=== PATIENT | female | born 1935 | race Caucasian/White ===

== ENCOUNTER → 2021-10-21 | Outpatient (CLI) | payer MEDICARE, SELFPAY ==
[2021-10-21 10:19] LABS: Absolute Lymphocyte Count 1.92 X10^3/uL (0.83-4.51); Absolute Neutrophil Count 7.5 X10^3/uL (2.0-7.7); Basophil# 0.05 X10^3/uL; Basophil% 0.5 % (0-1); Eosinophil# 0.06 X10^3/uL; Eosinophils% 0.6 % (0-5); Hematocrit 45.5 % (37-47); Hemoglobin 14.3 g/dL (12.0-15.0); Lymphocyte # 1.92 X10^3/ul (0.83-4.51); Lymphocyte % 18.2 % (19-41); Mean Corp Hgb Conc 31.4 g/dL (32-36); Mean Corpuscular Hgb 29.5 pg (27.0-32.0); Mean Platelet Vol. 10.4 fl (6.2-12.0); Monocyte# 0.98 X10^3/uL; Monocyte% 9.3 % (0-10); NRBC Flagged by Analyzer 0 % (0-5); Neutrophil % 71.1 % (47-70); Platelet Count 287 K/mm3 (150-450); RBC Distribution Width SD 48.2 fl (35.1-43.9); Red Blood Count 4.84 M/mm3 (4.2-5.4); White Blood Count 10.5 K/mm3 (4.4-11.0)
[2021-10-21 11:18] LABS: AST(SGOT) 20 U/L (15-37); Alanine Aminotransfer ALT/SGPT 28 U/L (13-56); Albumin, Serum 3.6 g/dL (3.2-5.0); Alkaline Phosphatase 138 U/L (45-117); Anion Gap 7 (5-15); BUN 10 mg/dL (7-18); BUN/Creat Ratio 10.8 RATIO (10-20); Calcium,Total 9.3 mg/dL (8.5-10.1); Chloride 103 mmol/L (98-107); Cholesterol 232 mg/dL (200); Creatinine, Serum 0.93 mg/dL (0.55-1.02); EST Glomerular Filtration Rate 61 mL/min (>60); Est Glom Filt Rate - Afr Amer 74 mL/min (>60); Globulin 3.6 g/dL (2.2-4.2); Glucose 97 mg/dL (74-106); High Density Lipoprotein 82 mg/dL; Potassium 4.6 mmol/L (3.5-5.1); Protein, Total 7.2 g/dL (6.4-8.2); Sodium Level 140 mmol/L (136-145); Triglycerides 134 mg/dL; Very Low Density Lipoprotein 27 mg/dL (5-40)
== END | disposition home or self-care (01) ==
PROVIDERS: PCP Family Medicine; Referring Provider Family Medicine; Visit Provider Family Medicine
DX: I12.9 Hypertensive chronic kidney disease with stage 1 through stage 4 chronic kidney disease, or unspecified chronic kidney disease (principal); I48.20 Chronic atrial fibrillation, unspecified; N18.30 Chronic kidney disease, stage 3 unspecified
CPT/HCPCS: 36415; 80053; 80061; 85025

== ENCOUNTER → 2022-03-08 | Outpatient (CLI) | payer MEDICARE, SELFPAY ==
[2022-03-08 17:36] LABS: Absolute Lymphocyte Count 1.73 X10^3/uL (0.83-4.51); Absolute Neutrophil Count 5.7 X10^3/uL (2.0-7.7); Basophil# 0.07 X10^3/uL; Basophil% 0.8 % (0-1); Eosinophil# 0.14 X10^3/uL; Eosinophils% 1.6 % (0-5); Hemoglobin 14.1 g/dL (12.0-15.0); Lymphocyte # 1.73 X10^3/ul (0.83-4.51); Mean Corpuscular Hgb 29.3 pg (27.0-32.0); Mean Corpuscular Volume 91.5 fL (81-99); Mean Platelet Vol. 10.4 fl (6.2-12.0); Monocyte# 1.03 X10^3/uL; Monocyte% 11.9 % (0-10); NRBC Flagged by Analyzer 0 % (0-5); Neutrophil # 5.68 X10^3/uL (2.7-7.7); Neutrophil % 65.5 % (47-70); Platelet Count 377 K/mm3 (150-450); RBC Distribution Width CV 14.3 % (11.6-14.6); RBC Distribution Width SD 48.3 fl (35.1-43.9); Red Blood Count 4.81 M/mm3 (4.2-5.4); White Blood Count 8.7 K/mm3 (4.4-11.0)
[2022-03-08 18:11] LABS: ALB/GLOB Ratio 0.7 RATIO (0.9-2.4); AST(SGOT) 22 U/L (15-37); Alanine Aminotransfer ALT/SGPT 29 U/L (13-56); Albumin, Serum 2.8 g/dL (3.2-5.0); Alkaline Phosphatase 171 U/L (45-117); Anion Gap 7 (5-15); BUN 15 mg/dL (7-18); BUN/Creat Ratio 13.5 RATIO (10-20); Calcium,Total 9.2 mg/dL (8.5-10.1); Chloride 101 mmol/L (98-107); Creatinine, Serum 1.11 mg/dL (0.55-1.02); EST Glomerular Filtration Rate 50 mL/min (>60); Est Glom Filt Rate - Afr Amer 60 mL/min (>60); Glucose 89 mg/dL (74-106); Potassium 4.8 mmol/L (3.5-5.1); Protein, Total 6.8 g/dL (6.4-8.2); Sodium Level 138 mmol/L (136-145)
== END | disposition home or self-care (01) ==
LOC: BFHLAB 15:03
PROVIDERS: PCP Family Medicine; Visit Provider Family Medicine
DX: N18.30 Chronic kidney disease, stage 3 unspecified (principal); I48.20 Chronic atrial fibrillation, unspecified
CPT/HCPCS: 36415; 80053; 85025

== ENCOUNTER → 2022-03-29 | Outpatient (CLI) | payer MEDICARE, MEDICAID, SELFPAY ==
--- NOTE | 2022-03-29 09:58 | ART_ITS ---
Reason For Study: Pain with walking L>R Procedure A bilateral lower extremity continuous wave Doppler with analog waveform analysis and ankle brachial indexes. Left Segmental Pressures Left brachial= 157mmHg. Left posterior tibial artery = 79mmHg. Left dorsalis pedis artery = 82mmHg. The left dorsalis pedis waveforms are monophasic. The left posterior tibial artery waveforms are monophasic. Right Segmental Pressures Right brachial= 147mmHg. Right dorsalis pedis artery = 88mmHg. The right dorsalis pedis waveforms are monophasic. The right posterior tibial artery waveforms are absent. Indices The right ankle brachial index by the dorsalis pedis is 0.56. The left ankle brachial index by the dorsalis pedis is 0.52. The left ankle brachial index by the posterior tibial artery is 0.50. VL/Ankle Brachial Index Interpretation Summary Right ANDREE 0.56, severe arterial insufficiency. Doppler/PVR waveforms of the rig ht ankle severely diminished Left ANDREE 0.52, severe arterial insufficiency. Doppler/PVR waveforms of the left ankle severely diminished. Ordering Physician: Deidre Borrero Referring Physician: Deidre Borrero Performed By: Carlotta Vigil, RDCS, RVT
== END | disposition home or self-care (01) ==
LOC: CVS 09:56
PROVIDERS: PCP Family Medicine; Referring Provider Family Medicine; Visit Provider Family Medicine
DX: I73.9 Peripheral vascular disease, unspecified (principal); F17.200 Nicotine dependence, unspecified, uncomplicated
CPT/HCPCS: 93922

== ENCOUNTER → 2022-05-03 | Outpatient (CLI) | payer MEDICARE, SELFPAY ==
[2022-05-03 11:19] LABS: Absolute Neutrophil Count 5.9 X10^3/uL (2.0-7.7); Basophil# 0.04 X10^3/uL; Basophil% 0.5 % (0-1); Eosinophil# 0.11 X10^3/uL; Eosinophils% 1.3 % (0-5); Hemoglobin 13.1 g/dL (12.0-15.0); Lymphocyte % 16.8 % (19-41); Mean Corp Hgb Conc 30.5 g/dL (32-36); Mean Corpuscular Hgb 28.6 pg (27.0-32.0); Mean Corpuscular Volume 93.9 fL (81-99); Mean Platelet Vol. 10.2 fl (6.2-12.0); Monocyte# 0.82 X10^3/uL; Monocyte% 9.8 % (0-10); NRBC Flagged by Analyzer 0 % (0-5); Neutrophil # 5.93 X10^3/uL (2.7-7.7); Neutrophil % 71.2 % (47-70); Platelet Count 464 K/mm3 (150-450); RBC Distribution Width CV 14.7 % (11.6-14.6); Red Blood Count 4.58 M/mm3 (4.2-5.4); White Blood Count 8.3 K/mm3 (4.4-11.0)
[2022-05-03 11:43] LABS: Anion Gap 7 (5-15); BUN 7 mg/dL (7-18); Calcium,Total 8.7 mg/dL (8.5-10.1); Chloride 104 mmol/L (98-107); EST Glomerular Filtration Rate 56 mL/min (>60); Est Glom Filt Rate - Afr Amer 68 mL/min (>60); Glucose 79 mg/dL (74-106); Potassium 3.9 mmol/L (3.5-5.1); Sodium Level 142 mmol/L (136-145)
== END | disposition home or self-care (01) ==
LOC: LAB 10:31
PROVIDERS: PCP Family Medicine; Visit Provider Physician Assistant
DX: N18.9 Chronic kidney disease, unspecified (principal); I73.9 Peripheral vascular disease, unspecified
CPT/HCPCS: 36415; 80048; 85025

== ENCOUNTER → 2022-05-16 | Outpatient (CLI) | payer MEDICARE, SELFPAY | END | disposition home or self-care (01) | LOC: CVS 09:55 | PROVIDERS: PCP Family Medicine; Visit Provider Physician Assistant | DX: Z00.00 Encounter for general adult medical examination without abnormal findings (principal) ==

== ENCOUNTER → 2022-05-16 | Outpatient (CLI) | payer MEDICARE, MEDICAID, SELFPAY ==
--- NOTE | 2022-05-16 09:57 | ECHOD_ITS ---
Left Ventricle Normal LV size. Left ventricular systolic function is normal. The estimated ejection fraction is 55 %. No regional wall motion abnormalities noted. Right Ventricle Normal RV size. Normal systolic function. Atria Normal left atrium. Normal right atrium. Mitral Valve Bileaflet diffuse mitral valve thickening. There is moderate mitral annular calcification. Mild focal mitral valve calcification. Mild-Moderate (1-2+) eccentric mitral valve insufficiency. Tricuspid Valve Moderate diffuse thickening of the tricuspid valve. Moderate (2+) tricuspid valve insufficiency. Pulmonary artery systolic pressure is 58 mmHg. Moderate pulmonary hypertension. Aortic Valve Trisinus/trileaflet aortic valve. Mild (1+) eccentric aortic valve insufficiency. Pulmonic Valve Normal pulmonic valve. Trivial pulmonic valve insufficiency. Great Vessels Normal aortic root. The pulmonary artery is normal size. Normal inferior vena cava. Pericardium/Pleural No pericardial effusion. MMode/2D Measurements & Calculations LVIDd: 4.1 cm IVSd: 0.89 cm Ao root diam: 3.1 cm LVIDs: 2.8 cm LVPWd: 0.76 cm RVDd: 3.7 cm FS: 31.5 % LAV(MOD-sp4): 48.6 ml LVAd ap4: 18.0 cm2 SV(MOD-sp4): 16.9 ml LVLd ap4: 5.5 cm EDV(MOD-sp4): 47.6 ml EDV(sp4-el): 49.7 ml LVAs ap4: 13.5 cm2 LVLs ap4: 4.8 cm ESV(MOD-sp4): 30.7 ml ESV(sp4-el): 32.0 ml EF(MOD-sp4): 35.6 % EF(sp4-el): 35.7 % SV(sp4-el): 17.8 ml LA dimension(2D): 3.4 cm LA A4 area: 16.4 cm2 RA A4 area: 16.4 cm2 Time Measurements MV dec time: 0.13 sec Doppler Measurements & Calculations MV E max vijay: 137.4 cm/sec Lat Peak E' Vijay: 10.2 cm/sec Med Peak E' Vijay: 6.6 cm/sec MV A max vijay: 98.1 cm/sec E/E' lat: 13.5 E/E' med: 20.9 MV E/A: 1.4 MV V2 max: 153.4 cm/sec Ao V2 max: 102.9 cm/sec MV max P.4 mmHg MV dec slope: 1088 cm/sec2 Ao max P.2 mmHg MV V2 mean: 86.0 cm/sec Ao V2 mean: 70.1 cm/sec MV mean P.7 mmHg Ao mean P.3 mmHg MV V2 VTI: 33.4 cm Ao V2 VTI: 22.1 cm AV (velocity ratio): 0.96 LV V1 max: 101.1 cm/sec TR max vijay: 365.1 cm/sec LV V1 max P.1 mmHg TR max P.3 mmHg LV V1 mean P.4 mmHg LV V1 mean: 72.6 cm/sec LV V1 VTI: 21.2 cm ECHO/Echo Complete Interpretation Summary Normal LV size. Left ventricular systolic function is normal. The estimated ejection fraction is 55 %. There is moderate mitral annular calcification. Mild-Moderate (1-2+) eccentric mitral valve insufficiency. Pulmonary artery systolic pressure is 58 mmHg. Moderate pulmonary hypertension. Ordering Physician: Leora Dominguez Performed By:
--- NOTE | 2022-05-16 09:57 | VDLE_ITS ---
Reason For Study: LEG PAIN AND SWELLING RIGHT LEFT CFV is compressible, spontaneous, phasic, CFV is compressible, spontaneous, phasic, competent and demonstrates normal competent, and demonstrates normal augmentation. augmentation. FV is compressible, spontaneous, phasic, FV is compressible, spontaneous, phasic, competent and demonstrates normal competent and demonstrates normal augmentation. augmentation. POP V is compressible, spontaneous, phasic, POP V is compressible, spontaneous, phasic, competent and demonstrates normal competent and demonstrates normal augmentation. augmentation. T/P Trunk is compressible. T/P Trunk is compressible. PTV is compressible. PTV is compressible. RT PerV is compressible. LT PerV is compressible. SFJ is competent and measures 0.35 x 0.34 SFJ is competent and measures 0.28 x 0.30 cm. cm. GSV proximal thigh measures 0.16 x 0.14 cm. GSV proximal thigh measures 0.19 x 0.26 cm. GSV at knee measures 0.11 x 0.12 cm. GSV at knee measures 0.14 x 0.20 cm. GSV is competent throughout. GSV is competent throughout. SSV proximal calf is competent and measures SSV proximal calf is competent and measures 0.10 x 0.11 cm. 0.14 x 0.13 cm. Significant atherosclerotic plaque noted in Procedure Lt Popliteal artery. Exam performed in department. The exam was diagnostic. VL/Venous Duplex US - Fran Extrem Interpretation Summary Deep veins of the bilateral lower extremities are patent and compressible segme ntally. There is no evidence of bilateral lower extremity deep vein thrombosis. The bilateral great saphenous veins appear patent and compressible segmentally. Negative for reflux bilateral Ordering Physician: Leora Dominguez Referring Physician: Ellen Borrero Performed By: Kash Romano, RVT
== END | disposition home or self-care (01) ==
LOC: CVS 09:49
PROVIDERS: PCP Family Medicine; Visit Provider Physician Assistant
DX: M79.606 Pain in leg, unspecified (principal); I48.20 Chronic atrial fibrillation, unspecified; M79.89 Other specified soft tissue disorders
CPT/HCPCS: 93306; 93970

== ENCOUNTER 2022-08-05 17:01 | Emergency (ER) | payer MEDICARE, MEDICAID, SELFPAY ==
[2022-08-05 17:04] VITALS: BP 165/88; PULSE 88; RESP 14; TEMP 36.3; O2SAT 95; BMI 16.9
--- NOTE | 2022-08-05 18:13 | EDS_ITS ---
HPI History of Present Illness Chief Complaint: Upper Extremity Injury Narrative Narrative: 86-year-old female here for left wrist pain after mechanical fall from standing. Does endorse head trauma. Denies loss of consciousness or vomiting. Patient denies taking blood thinning medication. [facility] Medical History Chronic a-fib Chronic renal disease HTN (hypertension) Tobacco dependence Home Medications ascorbic acid (vitamin C) 500 mg capsule 500 mg PO DAILY 04/19/22 [History Last Taken Unknown] aspirin 325 mg tablet 325 mg PO DAILY 04/19/22 [History Last Taken Unknown] atorvastatin 80 mg tablet 80 mg PO QHS #90 tabs 04/19/22 [Rx Last Taken Unknown] cholecalciferol (vitamin D3) 25 mcg (1,000 unit) capsule 25 mcg PO DAILY 04/19/22 [History Last Taken Unknown] echinacea 380 mg capsule 380 mg PO DAILY 04/19/22 [History Last Taken Unknown] furosemide 20 mg tablet (Lasix) 20 mg PO DAILY 04/19/22 [History Last Taken Unknown] lisinopril 5 mg tablet (Zestril) 5 mg PO DAILY 04/19/22 [History Last Taken Unknown] multivitamin 1 tab PO DAILY 04/19/22 [History Last Taken Unknown] verapamil 240 mg 24 hr capsule,extended release 240 mg PO DAILY 04/19/22 [History Last Taken Unknown] vitamin B complex (B Complex-Vitamin B12 tablet) 1 tab PO DAILY 04/19/22 [History Last Taken Unknown] Allergy/AdvReac Type Severity Reaction Status Date / Time diphenhydramine AdvReac Intermediate Other Verified 08/05/22 17:03 [From Bentimothyryl] Surgical History H/O: hysterectomy (~1972) History of cataract surgery (~1989) Social History Smoking Status: Light Smoker (<10/day) ROS ROS ED ROS Narrative Constitutional: Denies fever HEENT: Denies sore throat Neck: Denies neck pain Cardiovascular: Denies chest pain, syncope Respiratory: Denies shortness of breath GI: Denies nausea vomiting or abdominal pain : Denies changes in urinary habits Musculoskeletal: Endorses left wrist pain Neurologic: Denies numbness weakness or loss of sensation Skin denies rash EXAM Physical Exam Narrative Exam Narrative: Nursing triage notes reviewed, Vital signs reviewed Primary Survey Airway: Intact Breathing: Bilateral breath sounds Circulation: Palpable bilateral femorals, Palpable bilateral radial, Palpable bilateral DP and Palpable bilateral PT Disability / Spine precautions GCS Score: Eye Openin Verbal Response: 5 Motor Response: 6 Secondary Survey Constitutional: Please see MDM Head: Ecchymosis noted over left zygomatic arch, NO jaw malocclusion, No Cephalohematoma, and No Lacerations noted Eye: Pupils equal round and reactive to light, Extraocular muscles intact and No periorbital ecchymosis or stepoff, no evidence of entrapment ENT: Oropharynx clear, no lacerations, no hemotympanum, no raccoon eyes or finley sign Cervical spine / Neck: No cervical spine bony tenderness, crepitance, or stepoff deformity Trachea midline Lungs: Clear to auscultation, No asymmetric rise and No crepitus, no flail chest Cardiac: Regular rate and rhythm and No murmurs Abdomen: Soft, Nontender and No rebound Pelvis: Pelvis stable to compression : No evidence of genital injury Back: No midline bony tenderness to thoracic/lumbar/sacral spines Neuro: At baseline, intact strength and sensation in bilateral upper and lower extremities. 2+ patellar reflexes bilaterally. NIH was scale 0. Intact 5/5 strength with ok sign (median), intact finger abduction (ulnar) intact wrist extension (radial n). Intact sensation in the radial, ulnar, and median nerve distributions. Extremities: Obvious deformity to left wrist, Psych: Normal affect Nursing triage notes reviewed, Vital signs reviewed Const Vital Signs: 08/05/22 17:04 Temperature 97.3 F L Temperature Source Temporal Pulse Rate 88 Respiratory Rate 14 Blood Pressure 165/88 H Blood Pressure Mean 113 Pulse Ox 95 Oxygen Delivery Method Room Air [facility] [place], [place] Narrative Medical decision making narrative: Chief Complaint: Left wrist pain, head trauma External records reviewed: No recent adVanced imaging of the involved extremities I considered the following differential diagnosis: Intracranial abnormality, cervical spine abnormality, wrist fracture dislocation Patient CT scan read by myself showed right-sided subdural hematoma with no shift. Patient had a bed was greater than 30, blood pressure Below 140, she is given Keppra for seizure prophylaxis. Patient's NIH was 0 call the nearest trauma center for emergent transfer and neurosurgical evaluation. ICH score 1 (for age). Factors affecting care: History of atrial fibrillation, hypertension Social determinants of health: Elderly, poor literacy History obtained from others: The patient's family Shared decision making: I will have a discussion with the patient and or visitors regarding risk/benefits of further testing or admission. They will be made aware of of the risk/benefits inherent in this decision they will be given the opportunity to voice understanding. Consults: Trauma surgery Goals of care discussion: Patient is full code is okay with intubation and CPR. Lab Data Attestation: I reviewed the patient's lab results. Lab results narrative: CBC with leukocytosis, no anemia or thrombocytopenia noted PT/INR, PTT without evidence of coagulopathy BMP without significant electrolyte abnormalities, mild renal insufficiency, Radiography Chest X-Ray - ED: Read by ED Physician EKG Initial EKG: Attestation: I personally reviewed and interpreted this EKG as follows: Comments: EKG with atrial fibrillation, left axis deviation, prolonged QT, lateral T wave inversions, prior for comparison Procedures Upper Extremity Splints Upper Extremity Splint: Orthoglass Splint Fabrication: Fabricated Location: Left Critical Care Time Critical Care Time: Yes Critical care time (excluding procedures): 30-74 minutes Discharge Plan Triage Chief Complaint: Upper Extremity Injury Other Complaint: Head Injury ED Provider: Kevin Bernal Dx/Rx/DC Orders Prescriptions: No Action furosemide [Lasix] 20 mg tablet 20 mg PO DAILY aspirin 325 mg tablet 325 mg PO DAILY lisinopril [Zestril] 5 mg tablet 5 mg PO DAILY verapamil 240 mg capsule,ext rel. pellets 24 hr 240 mg PO DAILY vitamin B complex [B Complex-Vitamin B12] Tablet 1 tab PO DAILY echinacea 380 mg capsule 380 mg PO DAILY Rx Instructions: administer with meals cholecalciferol (vitamin D3) 25 mcg (1,000 unit) capsule 25 mcg PO DAILY multivitamin Tablet 1 tab PO DAILY ascorbic acid (vitamin C) 500 mg capsule 500 mg PO DAILY atorvastatin 80 mg tablet 80 mg PO QHS Qty: 90 3RF Primary Care Provider: Deidre Borrero Referrals: Deidre Borrero MD [Primary Care Provider] -
--- NOTE | 2022-08-05 18:33 | RAD_ITS ---
INDICATION: wrist pain after fall EXAMINATION/TECHNIQUE: X-RAY - LEFT XR Wrist Min 3 Views 3 VIEWS COMPARISON: None FINDINGS: SOFT TISSUES: Circumferential swelling. No radiopaque foreign body. BONES/JOINTS: Demineralized. Distal radial metaphysis fracture with mild ulnar impaction. Distal ulnar metaphysis fracture with impaction and dorsal angulation. Distal radioulnar joint, radiocarpal articulations, and carpal arcs appear normal. RAD/Wrist min 3 Views IMPRESSION: Distal radius and ulna fractures. Electronically Signed: Andrew Maynard MD at 19:22 EDT ,
--- NOTE | 2022-08-05 18:33 | CT_ITS ---
INDICATION: neck pain EXAMINATION: CT CERVICAL SPINE - CT Spine Cervical W/O Contrast Injection TECHNIQUE: Helically acquired images were obtained of the cervical spine. 2D reformatted images were reviewed. A radiation dose optimization technique was used for this scan. IV Contrast dosage and agent: None. RADIATION DOSAGE (If Supplied By Facility): CTDIvol = ( 11.79 ) mGy, DLP = ( 211.15 ) mGycm COMPARISON: None FINDINGS: VERTEBRAE: No fracture or traumatic subluxation. No discrete lytic or blastic abnormality. Normal alignment. Normal craniocervical junction and cervicothoracic junction. DISCS and SPINAL CANAL: Mild degenerative change. No critical stenosis. NECK SOFT TISSUES: No prevertebral soft tissue swelling. There is no cervical adenopathy. LUNG APICES: Large right pleural effusion. CT/Spine Cervical without Contras IMPRESSION: No evidence of acute cervical spinal fracture or spondylolisthesis. Electronically Signed: Andrew Maynard MD at 19:17 EDT ,
--- NOTE | 2022-08-05 18:33 | CT_ITS ---
INDICATION: Fall, head trauma EXAMINATION: CT BRAIN - CT Head or Brain W/O Contrast Injection TECHNIQUE: Multiple axial images were obtained of the head without intravenous contrast. A radiation dose optimization technique was used for this scan. IV Contrast dosage and agent: None. RADIATION DOSAGE (If Supplied By Facility): CTDIvol = ( 44.99 ) mGy, DLP = ( 745.49 ) mGycm COMPARISON: None FINDINGS: BRAIN PARENCHYMA: Diffuse right cerebral convexity subdural hematoma measures up to at least 7 mm in caliber (series 2, image 21). Subarachnoid components are noted in the high right parietal convexity (image 33), and lateral right frontal convexity (image 27, coronal image 29). Punctate left frontal convexity subdural hematoma. No evidence of acute infarct. No intracranial mass or mass effect. There is preservation of the auguste/white matter interface. Posterior fossa structures are unremarkable. CSF SPACES: Appropriate for age. No hydrocephalus. Basal cisterns are patent. CALVARIUM, SKULL BASE, PARANASAL SINUSES AND MASTOID AIR CELLS: Clear. No discrete lytic or blastic abnormalities. Left cheek soft tissue swelling. ORBITS: Bilateral ocular lens replacements. ASPECTS Score for Acute Strokes: 10 CT/Brain/Head without Contrast IMPRESSION: Right cerebral convexity subdural hematoma. No midline shift. Right and left cerebral convexity focal areas of subarachnoid hemorrhage. Electronically Signed: Andrew Maynard MD at 19:13 EDT ,
--- NOTE | 2022-08-05 18:58 | RAD_ITS ---
INDICATION: CP after fall EXAMINATION/TECHNIQUE: X-RAY - XR Chest 2 Views COMPARISON: Concurrent cervical spine CT FINDINGS: LINES/DEVICES: None. LUNGS: Moderate right and small left pleural effusions. No focal consolidation. MEDIASTINUM AND CARDIOVASCULAR STRUCTURES: Cardiac silhouette not enlarged. Central airways and mediastinal contour are unremarkable. RAD/Chest PA and Lateral IMPRESSION: Right greater than left pleural effusions. Electronically Signed: Andrew Maynard MD at 19:20 EDT ,
--- NOTE | 2022-08-05 19:14 | EKG12_ITS ---
Test Reason : FALL Blood Pressure : / mmHG Vent. Rate : 098 BPM Atrial Rate : 000 BPM P-R Int : 000 ms QRS Dur : 108 ms QT Int : 378 ms P-R-T Axes : 000 -27 129 degrees QTc Int : 482 ms Atrial fibrillation with premature ventricular or aberrantly conducted complexes Left ventricular hypertrophy with repolarization abnormality ( Bal product , Romhilt-Pena ) Cannot rule out Septal infarct , age undetermined Inferior infarct , age undetermined Abnormal ECG Confirmed by CARLY HAQUE ([id number]), fan mail editor MARY FERNÁNDEZ ([id number]) on 08/09/2022 7:54:42 AM Referred By: Confirmed By:CARLY HAQUE
[2022-08-05 19:16] VITALS: BP 163/73
[2022-08-05 19:32] VITALS: BP 152/67; PULSE 97; RESP 20; O2SAT 93
[2022-08-05] MEDS: Labetalol (Prefilled) 20 MG/4 ML IV (19:35)
[2022-08-05 19:37] LABS: Absolute Lymphocyte Count 1.37 X10^3/uL (0.83-4.51); Absolute Neutrophil Count 10.1 X10^3/uL (2.0-7.7); Basophil# 0.03 X10^3/uL; Basophil% 0.2 % (0-1); Eosinophil# 0.05 X10^3/uL; Eosinophils% 0.4 % (0-5); Hematocrit 40.8 % (37-47); Hemoglobin 12.9 g/dL (12.0-15.0); Lymphocyte # 1.37 X10^3/ul (0.83-4.51); Lymphocyte % 10.6 % (19-41); Mean Corp Hgb Conc 31.6 g/dL (32-36); Mean Corpuscular Hgb 29.3 pg (27.0-32.0); Mean Corpuscular Volume 92.7 fL (81-99); Mean Platelet Vol. 10.3 fl (6.2-12.0); Monocyte% 10.8 % (0-10); NRBC Flagged by Analyzer 0 % (0-5); Neutrophil # 10.05 X10^3/uL (2.7-7.7); Neutrophil % 77.7 % (47-70); Platelet Count 302 K/mm3 (150-450); RBC Distribution Width CV 14.6 % (11.6-14.6); RBC Distribution Width SD 49.4 fl (35.1-43.9); White Blood Count 12.9 K/mm3 (4.4-11.0)
[2022-08-05] MEDS: levETIRAcetam IV 1,000 MG/100 ML BAG 400 MG IV (19:51)
[2022-08-05 20:00] LABS: Anion Gap 5 (5-15); BUN 10 mg/dL (7-18); BUN/Creat Ratio 8.1 RATIO (10-20); Calcium,Total 8.9 mg/dL (8.5-10.1); Chloride 104 mmol/L (98-107); Creatinine, Serum 1.24 mg/dL (0.55-1.02); EST Glomerular Filtration Rate 44 mL/min (>60); Est Glom Filt Rate - Afr Amer 53 mL/min (>60); Estimated Creatinine Clearance 20.19 ml/min; Glucose 93 mg/dL (74-106); Potassium 3.8 mmol/L (3.5-5.1); Sodium Level 138 mmol/L (136-145)
[2022-08-05 20:15] LABS: Partial Thromboplast Time 26.9 Seconds (24.1-36.2); Prothrombin Time (Protime)PT. 13.2 SECONDS (11.7-14.9)
[2022-08-05 20:24] VITALS: BP 106/73; PULSE 80; RESP 18; O2SAT 98
[2022-08-05 21:11] VITALS: BP 106/73; PULSE 76; RESP 20; TEMP 37.1; O2SAT 95
--- NOTE | 2022-08-05 21:15 | ED.RN ---
ATTEMPTED TO CALL REPORT AND NURSEKISHAN, NOT AVAILABLE.
--- NOTE | 2022-08-05 21:31 | ED.RN ---
KISHAN FROM [facility] CALLED AND THIS NURSE GAVE REPORT.
== END 2022-08-05 21:15 | disposition short-term general hospital (02) ==
PROVIDERS: Emergency Provider Emergency Medicine; PCP Family Medicine; Visit Provider Emergency Medicine
DX: S06.5X0A Traumatic subdural hemorrhage without loss of consciousness, initial encounter (principal); I48.20 Chronic atrial fibrillation, unspecified; W18.30XA Fall on same level, unspecified, initial encounter; I12.9 Hypertensive chronic kidney disease with stage 1 through stage 4 chronic kidney disease, or unspecified chronic kidney disease; N18.9 Chronic kidney disease, unspecified; F17.200 Nicotine dependence, unspecified, uncomplicated; Z55.0 Illiteracy and low-level literacy; Z79.82 Long term (current) use of aspirin; Z79.899 Other long term (current) drug therapy
CPT/HCPCS: 70450; 71046; 72125; 73110; 80048; 85025; 85610; 85730; 93005; 96365; 96375; 99285; J7050; A4216

== ENCOUNTER 2022-08-11 19:02 | Inpatient (IN) | payer MEDICARE, SELFPAY ==
[2022-08-11 19:07] VITALS: BP 146/70; PULSE 130; RESP 16; TEMP 36.7; O2SAT 95; BMI 16.9
[2022-08-11 22:00] VITALS: BP 132/80; PULSE 93; PULSE 98; RESP 17; TEMP 36.6; O2SAT 97
[2022-08-11] MEDS: Menthol/Lanolin/Calamine/Znox 113 GM Tube 1 APPLIC TOPICAL (22:05)
[2022-08-11] MEDS: Heparin Injection (Vial) 5,000 UNIT/ML VIAL 5000 UNIT SC (22:06)
[2022-08-11] MEDS: Atorvastatin Calcium 80 MG Tablet PO (22:09)
[2022-08-11 22:10] VITALS: PULSE 90
[2022-08-11] MEDS: Metoprolol Tartrate 25 MG Tablet PO (22:10)
[2022-08-11] MEDS: Acetaminophen 500 MG Tablet PO (22:11)
--- NOTE | 2022-08-11 23:42 | NURSING ---
Patient pleasant, alert and oriented with some forgetfullness and needs cues and reminders. Son and niece aware of team and rehab routine. Patient verified she wants to be a DNRCCA. Patient and this nurse reviewed her medications.
[2022-08-12 05:25] LABS: Absolute Lymphocyte Count 1.17 X10^3/uL (0.83-4.51); Absolute Neutrophil Count 6.6 X10^3/uL (2.0-7.7); Basophil# 0.03 X10^3/uL; Basophil% 0.3 % (0-1); Eosinophil# 0.12 X10^3/uL; Eosinophils% 1.3 % (0-5); Hematocrit 34.8 % (37-47); Hemoglobin 11.4 g/dL (12.0-15.0); Lymphocyte # 1.17 X10^3/ul (0.83-4.51); Mean Corp Hgb Conc 32.8 g/dL (32-36); Mean Corpuscular Hgb 29.8 pg (27.0-32.0); Mean Corpuscular Volume 90.9 fL (81-99); Mean Platelet Vol. 9.9 fl (6.2-12.0); Monocyte# 1.05 X10^3/uL; Monocyte% 11.7 % (0-10); NRBC Flagged by Analyzer 0 % (0-5); Neutrophil # 6.61 X10^3/uL (2.7-7.7); Neutrophil % 73.5 % (47-70); Platelet Count 332 K/mm3 (150-450); RBC Distribution Width CV 14.4 % (11.6-14.6); Red Blood Count 3.83 M/mm3 (4.2-5.4)
[2022-08-12 05:36] VITALS: BP 130/62; PULSE 80
[2022-08-12] MEDS: Metoprolol Tartrate 25 MG Tablet PO ×2 (05:36→13:51)
[2022-08-12] MEDS: Menthol/Lanolin/Calamine/Znox 113 GM Tube 1 APPLIC TOPICAL ×2 (05:37→22:06)
[2022-08-12] MEDS: Acetaminophen 500 MG Tablet PO ×3 (05:37→21:59)
[2022-08-12 05:42] LABS: BNP,B-Type NATRIURETIC PEPTIDE 514.2 pg/mL (0-100)
[2022-08-12 05:55] LABS: BUN 20 mg/dL (7-18); Creatinine, Serum 0.87 mg/dL (0.55-1.02); Glucose 75 mg/dL (74-106)
[2022-08-12 05:56] LABS: ALB/GLOB Ratio 0.7 RATIO (0.9-2.4); AST(SGOT) 27 U/L (15-37); Alanine Aminotransfer ALT/SGPT 25 U/L (13-56); Alkaline Phosphatase 122 U/L (45-117); Anion Gap 2 (5-15); Calcium,Total 8.7 mg/dL (8.5-10.1); Chloride 104 mmol/L (98-107); EST Glomerular Filtration Rate 66 mL/min (>60); Est Glom Filt Rate - Afr Amer 79 mL/min (>60); Estimated Creatinine Clearance 28.87 ml/min; Phosphorus 3.7 mg/dL (2.5-4.9); Potassium 4.2 mmol/L (3.5-5.1); Sodium Level 135 mmol/L (136-145); Thyroid Stim Hormone (TSH) 1.19 uIU/mL (0.358-3.74)
[2022-08-12 06:00] VITALS: BMI 17.0
[2022-08-12 06:20] VITALS: O2SAT 96
[2022-08-12 07:19] VITALS: BP 130/62; PULSE 85; RESP 16; TEMP 37.2; O2SAT 99
[2022-08-12] MEDS: Heparin Injection (Vial) 5,000 UNIT/ML VIAL 5000 UNIT SC ×2 (07:41→22:01)
[2022-08-12] MEDS: Ascorbic Acid 500 MG Tablet PO (07:41)
[2022-08-12] MEDS: Cholecalciferol (VIT D3) 25 MCG TABLET (1,000 UNITS) PO (07:42)
[2022-08-12] MEDS: Lisinopril 5 MG Tablet PO (07:42)
--- NOTE | 2022-08-12 09:00 | EKGRS_ITS ---
Test Reason : AM EKG Blood Pressure : / mmHG Vent. Rate : 083 BPM Atrial Rate : 326 BPM P-R Int : 000 ms QRS Dur : 110 ms QT Int : 408 ms P-R-T Axes : 000 -42 120 degrees QTc Int : 479 ms Atrial flutter with variable A-V block Left axis deviation Inferior infarct (cited on or before 05-AUG-2022) Anteroseptal infarct (cited on or before 05-AUG-2022) Abnormal ECG Confirmed by MARCUS VICTORIA, LIDIA ([id number]), art editor MARY FERNÁNDEZ ([id number]) on 08/16/2022 10:26:04 AM Referred By: AALIYAH Confirmed By:LIDIA VELAZQUEZ MD
[2022-08-12 10:00] VITALS: PULSE 93
--- NOTE | 2022-08-12 11:38 | EX.PCM.HP.RE ---
[facility] - General General Date of Admission: 08/11/22 Date of Service: 08/12/22 Chief Complaint: debility due to intracerebral hemorrhage related to a mechanical fall. HPI Narrative BEN SALAMANCA, is a 86 YO F with a PMH of atrial fibrillation, chronic kidney disease, hypertension, peripheral vascular disease and tobacco dependence who presented to the ED at [facility] on 08/05/2022 after a mechanical fall (she tripped over her carpet) at home resulting in left wrist pain. She admitted to hitting her head but denied loss of consciousness and also denied nausea/vomiting. She was taking aspirin 325 mg daily but was on no anticoagulation. Plain x-rays of the left wrist show distal radius and ulna fractures. Chest x-ray showed bilateral pleural effusions, right greater than left. A noncontrast CT brain showed a right subdural hematoma with no midline shift and right and left focal areas of subarachnoid hemorrhage. CT of the cervical spine showed no acute fractures or spondylolisthesis. A splint was applied to the left forearm and she was given Keppra for seizure prophylaxis. She was transferred to the trauma center at [facility]. CT chest at [facility] showed a large right and moderate left pleural effusion and the heart was moderately enlarged. There was mild to moderate coronary artery calcification. No surgical intervention was needed other than a R chest tube to drain the pleural fluid which was serous and had no malignant cells per a PN from [facility]. The chemistries on the pleural fluid were not sent with the patient. While at [facility] she was seen by PT/OT and acute rehab was recommended at [facility]. Ben was transferred to [facility] acute rehab on 08/11/22 for 3 hours of therapy daily to restore function/independence at or as near as possible to her level of function prior to the fall. BNP at [facility] was approximately 3800? with a normal EF? The EMR from [facility] was reviewed. The patient had a echocardiogram in April 2022 which showed a ejection fraction of 55% with no regional wall motion abnormalities. The atria were of normal size. There was bileaflet diffuse mitral valve thickening with moderate mitral annular calcification and mild to moderate eccentric mitral valve insufficiency. There was also moderate diffuse thickening of the tricuspid valve with 2+ tricuspid valve insufficiency. The pulmonary artery systolic pressure was estimated at 58 which is considered moderate pulmonary hypertension. There was +1 AI and trivial pulmonic valve insufficiency. Echocardiogram at [facility] on 08/05/2022 showed a 55% ejection fraction with mildly dilated right atrium and a moderately dilated left atrium. The IVC diameter was dilated and decreased less than 50% during inspiration which is indicative of elevated right atrial pressure estimated at 15. She was seen by Dr. Enrike Hill from vascular surgery in April and was found to have diminished blood flow in her legs bilaterally with claudication at a distance of about 350 feet. ANDREE on the right was 0.56 and on the left was 0.52. She had no wounds. He prescribed atorvastatin 80 mg daily and recommended aspirin daily. She was provided with instructions regarding exercise 5 times a week. She was reevaluated in 6 weeks and she found that she was able to walk further. She was wearing the compression stockings (20 to 30 mmHg) prescribed by her PCP. Note changes were made to her current drug regimen however vascular recommended decreasing compression to 16 to 20 mg given her severe peripheral vascular disease. All lab from this morning was personally reviewed. White blood cell count is normal at 9.0. Hemoglobin is 11.4, down from 12.9 on 08/05/2022. She is normochromic normocytic with an elevated RDW standard deviation at 48. Platelets are normal. Sodium is low at 135 and potassium is 4.2. The BUN is 20 with a creatinine of 0.87 which is down from 1.24 at presentation to the emergency room on 08/05/2022. Phosphorus and magnesium are within normal limits. LFTs are unremarkable. Total protein is low at 5.0 and the albumin is 2.0. BNP is 514 (it was over 3800 at [facility]). TSH is normal at 1.19. EKG done today shows a QS wave in the anterior and septal leads and also in the inferior leads.....she has no hx od MT and has no wall motion abnormalities on the ECHO so I suspect she has LVH. She has LAD and NS ST and T wave changes. No ST elevation. QT is 408. [facility], [facility] Medical History (Updated 08/18/22 @ 16:[address] Cassandra Gerardo DO) Chronic a-fib Chronic renal disease History of ectopic HTN (hypertension) Pulmonary hypertension Tobacco dependence Home Medications ascorbic acid (vitamin C) 500 mg capsule 500 mg PO DAILY supp 12/27/22 [History Last Taken Unknown] cholecalciferol (vitamin D3) 25 mcg (1,000 unit) capsule 25 mcg PO DAILY supp 04/19/22 [History Last Taken Unknown] lisinopril 5 mg tablet (Zestril) 5 mg PO DAILY bp 04/19/22 [History Last Taken Unknown] verapamil 240 mg 24 hr capsule,extended release 240 mg PO DAILY bp 04/19/22 [History Last Taken Unknown] acetaminophen 500 mg tablet 500 mg PO 0600,1200,2200 pain 08/11/22 [History Last Taken Unknown] atorvastatin 80 mg tablet 80 mg PO QHS cholesterol 08/11/22 [History Last Taken Unknown] oxycodone 5 mg tablet 2.5 mg PO Q4H PRN Pain 08/11/22 [History Last Taken Unknown] polyethylene glycol 3350 17 gram oral powder packet (Miralax) 17 g PO DAILY constipation 08/11/22 [History Last Taken Unknown] Allergy/AdvReac Type Severity Reaction Status Date / Time diphenhydramine AdvReac Intermediate Other Verified 08/05/22 17:03 [From Keith] Family History no significant family his no significant family history (Ben tells me that most of her family of old age and she denies any FH of CA, CAD, Strokes) Surgical History (Updated 08/12/22 @ 14:[address] Cassandra Gerardo DO) H/O: hysterectomy (~1972) History of cataract surgery (~1989) Social History (Updated 08/12/22 @ 14:[address] Cassandra Gerardo DO) household members: none and other details: she has been for 20 years. housing: other details: She lives in a trailer number of children: 1 current occupational status: retired pets and animals: Yes (2 cats) pets and animals: cat(s) Smoking Status: Light Smoker (<10/day) Tobacco: How many years used: 72 counseling given: provider counseling alcohol intake: current alcohol intake frequency: 0-2 drinks per day details: She drinks a small juice glass of wine, when she has it, 4-5 days per week. substance use type: does not use what type of physical activity do you participate in: walking ROS Review of Systems ROS Unobtainable: Denies due to encephalopathy, due to endotracheal tube, due to mental condition or due to mental status Constitutional Constitutional: Reports fatigue; Denies anorexia, change in weight, chills, fever(s), night sweats or weakness Eyes Eyes: Denies blurry vision, change in vision, eye pain or loss of vision ENT HEENT: Reports abnormal hearing; Denies dysphagia, headache(s), hearing loss, nasal congestion or sore throat Cardiovascular Cardiovascular: Reports dyspnea on exertion and edema; Denies chest pain, lightheadedness, orthopnea, palpitations, paroxysmal nocturnal dyspnea or syncope Respiratory/Chest Respiratory/Chest: Reports shortness of breath with exertion and other Details: Has used an inhaler in the past but, she tells me that it really did not improve her breathing. ; Denies cough, dyspnea, shortness of breath at rest or wheezing Gastrointestinal Gastrointestinal: Denies abdominal pain, constipation, diarrhea, dyspepsia, hematemesis, hematochezia, nausea or vomiting Genitourinary Genitourinary: Denies dysuria, hematuria, nocturia, urinary frequency, urinary hesitancy, urinary incontinence or urinary urgency Musculoskeletal Musculoskeletal: Denies back pain, joint pain, joint swelling or neck pain Integumentary Integumentary: Reports other Details: Black eye on the R. ; Denies jaundice, pruritus, rash or wounds Neurologic Neurologic: Denies confusion, disequilibrium, dizziness, focal weakness, headache(s), paresthesias, seizures or tremor(s) Psychiatric Psychiatric: Denies anxiety, depression, homicidal ideation or suicidal ideation Endocrine Endocrinology: Denies change in body appearance, polydipsia or polyuria Hematologic/Lymphatic Hematologic/Lymphatic: Denies easy bleeding, easy bruising or lymphadenopathy Allergic/Immunologic Allergic/Immunologic: Denies rhinitis, eczemia or asthma Vital Signs Vital Signs Vital Signs: 08/11/22 19:07 08/11/22 22:10 08/11/22 22:00 Temperature 98.1 F 97.8 F Temperature Source Temporal Oral Pulse Rate 130 H 90 93 Pulse Strength Respiratory Rate 16 17 Blood Pressure 146/70 H 132/80 H Blood Pressure Mean 95 97 Blood Pressure Source Monitor Monitor Blood Pressure Position Semi-Fowlers Semi-Fowlers Blood Pressure Location Right Arm Right Arm Pulse Ox 95 97 Oxygen Delivery Method Room Air Room Air 08/11/22 22:00 08/12/22 05:36 08/12/22 06:20 Temperature Temperature Source Pulse Rate 98 80 Pulse Strength Respiratory Rate Blood Pressure 130/62 H Blood Pressure Mean Blood Pressure Source Blood Pressure Position Blood Pressure Location Pulse Ox 96 Oxygen Delivery Method Room Air 08/12/22 07:19 08/12/22 10:00 Temperature 99.0 F Temperature Source Temporal Pulse Rate 85 Pulse Strength Normal (2+) Respiratory Rate 16 Blood Pressure 130/62 H Blood Pressure Mean 84 Blood Pressure Source Monitor Blood Pressure Position Semi-Fowlers Blood Pressure Location Right Arm Pulse Ox 99 Oxygen Delivery Method Room Air Weight Weight: 86 lb 13.794 oz Body Mass Index (BMI) 17.0 Indicators for Scoring Admitted with or Primary Diagnosis of CVA/Stroke: Yes Hx of CVA/Stroke: No (subdural hematoma and SAH) Modified Mora Score MRS Score at time of Evaluation: 3-Moderate disability NIHSS NIHSS 1a. Level of Consciousness: Alert; keenly responsive 1b. LOC Questions: Answers BOTH questions correctly. 1c. LOC Commands: Performs both tasks correctly. 2. Best Gaze: Normal 3. Visual: No visual loss 4. Facial Palsy: Normal symmetrical movements 5a. Left Arm: No drift; arm holds 90 (or 45) degrees for full 10 seconds 5b. Right Arm: No drift; arm holds 90 (or 45) degrees for full 10 seconds 6a. Left Leg: No drift; leg holds 30-degree position for full 5 seconds 6b. Right Leg: No drift; leg holds 30-degree position for full 5 seconds 7. Limb Ataxia: Absent 8. Sensory: Normal; no sensory loss 9. Best Language: No aphasia; normal 10. Dysarthria: Normal 11. Extinction and Inattention: No abnormality Total: 0 Stroke Questions Stroke Team Activated: No Physical Exam Const alert, oriented x3 and no apparent distress Constitutional Narrative: She is cachetic in appearance but, she tells me that her weight has been stable for the past 5 years. She weighs 86.9 pounds today which is stable from her weight on 08/05/2022. General Appearance: cooperative HEENT normocephalic and moist oral mucous membranes HEENT Narrative: She has some ecchymosis around her left eye/cheek. Eyes PERRL and EOMs intact bilaterally Eyes Narrative: Has had bilateral cataract extraction. Neck No nuchal rigidity, No no lymphadenopathy, supple, No nodes and No no carotid bruits Neck Narrative: Positive JVD. General: trachea midline Resp clear to auscultation bilaterally Resp Narrative: Marked decrease in air exchange, especially in the bases posteriorly. Breath sounds are better anteriorly. There are no crackles, wheezes or rhonchi. She is not tachypneic and breathing is not labored at rest. Cardio S1 normal heart sound, S2 normal heart sound, no murmurs, no rub and no gallops Cardio Narrative: Irregular irregular rhythm. GI normal to inspection, nondistended, normoactive bowel sounds, soft to palpation and non-tender GI Narrative: She has a soft abdominal bruit. No guarding with palpation. Extremity no calf tenderness Extremity Narrative: The toes are little cool to touch compared to the rest of her leg. She has intact sensation to both feet and both hands. General Extremity: Negative for cyanosis or edema Skin no wounds and no jaundice General Skin Exam: no breakdown Rashes: no rashes Neuro CN's II-XII intact bilaterally, no focal motor deficits and no sensory deficits noted Psych thought process normal, cooperative, affect normal, denies homicidal ideation and denies suicidal ideation Appearance: appropriate Results Lab / Micro Data Result Diagrams: 08/12/22 05:18 08/12/22 05:18 Labs: Laboratory Results - last 24 hr 08/12/22 05:18: WBC 9.0, RBC 3.83 L, Hgb 11.4 L, Hct 34.8 L, MCV 90.9, MCH 29.8, MCHC 32.8, RDW Std Deviation 48.0 H, RDW Coeff of Jenny 14.4, Plt Count 332, MPV 9.9, Immature Gran % (Auto) 0.200, Neut % (Auto) 73.5 H, Lymph % (Auto) 13.0 L, Galax % (Auto) 11.7 H, Eos % (Auto) 1.3, Baso % (Auto) 0.3, Absolute Neuts (auto) 6.6, Absolute Lymphs (auto) 1.17, Nucleated RBC % 0 08/12/22 05:18: Sodium 135 L, Potassium 4.2, Chloride 104, Carbon Dioxide 29.0, Anion Gap 2 L, BUN 20 H, Creatinine 0.87, Estim Creat Clear Calc 28.87, Est GFR (MDRD) Af Amer 79, Est GFR (MDRD) Non-Af 66, BUN/Creatinine Ratio 23.0 H, Glucose 75, Calcium 8.7, Phosphorus 3.7, Magnesium 2.0, Total Bilirubin 0.60, AST 27, ALT 25, Alkaline Phosphatase 122 H, Total Protein 5.0 L, Albumin 2.0 L, Globulin 3.0, Albumin/Globulin Ratio 0.7 L, TSH 1.19 08/12/22 05:18: B-Natriuretic Peptide 514.2 H Assessment & Plan Assessment/Plan (1) Debility: (2) Fall: PLAN: Mechanical, tripped over a throw rug. (3) Fracture of left radius and ulna: PLAN: No surgery......casted (4) Subarachnoid hemorrhage: (5) Subdural hematoma: (6) History of CHF (congestive heart failure): PLAN: BL pleural effusions at previous hospital and had a chest tube to drain, path with no malignant cells. (7) Insomnia: (8) Pulmonary hypertension: PLAN: Moderate (9) Peripheral vascular disease: PLAN: Follows with Dr. Hill. (10) Left ventricular hypertrophy: (11) Tobacco dependence: (12) Chronic renal disease: (13) Chronic a-fib: PLAN: Was not on anticoagulation as OP. (14) HTN (hypertension): PLAN: Controlled (15) Dehydration, moderate: PLAN: PLAN: Plan PLAN PT for gait stability OT for ADL's ST for evaluation Analgesics as needed Bowel protocol Fall precautions Assess for Anxiety/Depression GI prophylaxis - not needed at this time No hx of PUD and no DVT prophylaxis with MIGDALIA hose and heparin 5000 units subcu every 12 hours. Follow up with Dr. Forde, cardiology and orthopedics following DC from rehab AM lab including CMP, CBC, Mag and Phos - personally reviewed. Increase the Verapamil if the HR stays up after she gets settled. PRN Metoprolol for HR > 120 Avoid beta blockers going forward because of the PVD Hydrate and recheck BMP Charges/Coding Visit Charges Inpatient E&M: 52682 Init Hosp L3
[2022-08-12 13:51] VITALS: PULSE 110
[2022-08-12 20:00] VITALS: BP 131/63; PULSE 96; RESP 16; TEMP 36.3; O2SAT 95
[2022-08-12] MEDS: Verapamil SR 240 MG Tablet PO (21:59)
[2022-08-12] MEDS: Atorvastatin Calcium 80 MG Tablet PO (21:59)
[2022-08-13] MEDS: Menthol/Lanolin/Calamine/Znox 113 GM Tube 1 APPLIC TOPICAL ×2 (05:04→21:00)
[2022-08-13] MEDS: Acetaminophen 500 MG Tablet PO ×3 (05:05→20:59)
[2022-08-13 07:52] VITALS: BP 119/56; PULSE 83; RESP 16; TEMP 36.4; O2SAT 94
[2022-08-13] MEDS: Heparin Injection (Vial) 5,000 UNIT/ML VIAL 5000 UNIT SC ×2 (08:59→21:00)
[2022-08-13] MEDS: Lisinopril 5 MG Tablet PO (09:01)
[2022-08-13] MEDS: Ascorbic Acid 500 MG Tablet PO (09:02)
[2022-08-13] MEDS: Cholecalciferol (VIT D3) 25 MCG TABLET (1,000 UNITS) PO (09:02)
[2022-08-13] MEDS: Verapamil SR 240 MG Tablet 120 MG PO (09:03)
[2022-08-13 15:19] VITALS: O2SAT 94
[2022-08-13 19:45] VITALS: BP 111/40; PULSE 95; RESP 18; TEMP 36.2; O2SAT 94
[2022-08-13] MEDS: Atorvastatin Calcium 80 MG Tablet PO (20:59)
[2022-08-13] MEDS: Verapamil SR 240 MG Tablet PO (20:59)
[2022-08-14 06:22] VITALS: O2SAT 95
[2022-08-14] MEDS: Acetaminophen 500 MG Tablet PO ×3 (07:04→21:28)
[2022-08-14] MEDS: Menthol/Lanolin/Calamine/Znox 113 GM Tube 1 APPLIC TOPICAL ×2 (07:05→21:35)
--- NOTE | 2022-08-14 07:21 | NURSING ---
Pt talking to son on speaker phone, son asked pt if she was taking oxy for her wrist pain. Talked to son and told him we talked about this last night and pt refused to take it, pt states I'm not sure what will happen and I'm allergic to so many different medications. The Tylenol is enough for me. Dayshift RN made aware that possibly increase Tylenol.
[2022-08-14 08:09] VITALS: BP 138/62; PULSE 82; RESP 15; TEMP 36.4; O2SAT 98
[2022-08-14] MEDS: Cholecalciferol (VIT D3) 25 MCG TABLET (1,000 UNITS) PO (08:29)
[2022-08-14] MEDS: Verapamil SR 240 MG Tablet 120 MG PO (08:29)
[2022-08-14] MEDS: Heparin Injection (Vial) 5,000 UNIT/ML VIAL 5000 UNIT SC ×2 (08:29→21:30)
[2022-08-14] MEDS: Lisinopril 5 MG Tablet PO (08:29)
[2022-08-14] MEDS: Ascorbic Acid 500 MG Tablet PO (08:29)
[2022-08-14 19:31] VITALS: BP 145/64; PULSE 79; RESP 18; TEMP 37.1; O2SAT 96
[2022-08-14] MEDS: Verapamil SR 240 MG Tablet PO (21:28)
[2022-08-14] MEDS: Atorvastatin Calcium 80 MG Tablet PO (21:28)
[2022-08-15] MEDS: Acetaminophen 500 MG Tablet PO (04:50)
--- NOTE | 2022-08-15 04:50 | NURSING ---
Pt called out, asking if it's time for her Tylenol because the pain in her left wrist has increased since last night. States she feels like her splint has shifted. Encouraged pt to try Oxy to help and pt again refused, states that she is afraid since she never had it before and she doesn't know how she will react since she is allergic and sensitive to so many meds. Tylenol given early and ice pack applied to left wrist, left arm elevated up on pillow. Note left for Dr. Gerardo to assess this morning.
[2022-08-15] MEDS: Menthol/Lanolin/Calamine/Znox 113 GM Tube 1 APPLIC TOPICAL ×2 (04:54→20:59)
[2022-08-15] MEDS: Verapamil SR 240 MG Tablet 120 MG PO (08:00)
[2022-08-15] MEDS: Ascorbic Acid 500 MG Tablet PO (08:00)
[2022-08-15] MEDS: Heparin Injection (Vial) 5,000 UNIT/ML VIAL 5000 UNIT SC ×2 (08:01→20:59)
[2022-08-15] MEDS: Lisinopril 5 MG Tablet PO (08:01)
[2022-08-15] MEDS: Cholecalciferol (VIT D3) 25 MCG TABLET (1,000 UNITS) PO (08:01)
[2022-08-15 08:12] VITALS: BP 129/61; PULSE 95; RESP 17; TEMP 36.3; O2SAT 97
--- NOTE | 2022-08-15 11:48 | PN_ITS ---
Subjective Subjective Afebrile VSS Maintaining appropriate oxygen saturation on RA Oral intake is adequate. Consistently eating 50-74% of her meals. Discussed with nursing - Had some diarrhea and nausea Monday which she blamed on Marinara sauce.....resolved. Reviewed the PT/OT/ST notes Medication list reviewed. She denies shortness of breath, palpitations, lightheadedness, chest pain, calf pain, dysuria, nausea/vomiting/diarrhea. Objective Data Objective Data Vital Signs: Vital Signs Temp Pulse Resp BP Pulse Ox O2 Del Method 97.4 F L 95 17 129/61 H 97 Room Air 08/15/22 08:12 08/15/22 08:12 08/15/22 08:12 08/15/22 08:12 08/15/22 08:12 08/15/22 08:12 Oxygen Delivery Method Room Air Weight: 86 lb 13.794 oz Body Mass Index (BMI) 17.0 Intake & Output: Intake and Output for Last 24 Hours 08/13/22 08/14/22 08/15/22 23:59 23:59 23:59 Intake Total 1400 / 1400 850 / 850 150 / 150 Output Total 600 / 600 Balance 800 / 800 850 / 850 150 / 150 Lab / Micro Data Result Diagrams: 08/19/22 05:48 08/19/22 05:48 Physical Exam Const alert, oriented x3 and no apparent distress Constitutional Narrative: Sitting in the recliner with her legs elevated. General Appearance: cooperative HEENT normocephalic, head/scalp atraumatic and moist oral mucous membranes Eyes PERRL and EOMs intact bilaterally Eyes Narrative: Has had bilateral cataract extraction. Neck No nuchal rigidity, No no lymphadenopathy, supple, No nodes and No no carotid bruits Neck Narrative: Positive JVD. General: trachea midline Lymph Lymphatic: no lymphadenopathy noted Resp normal respiratory effort, no use of accessory muscles and clear to auscultation bilaterally Resp Narrative: Diminished throughout but clear to auscultation. Effort and Inspection: Negative for tachypneic or labored Cardio S1 normal heart sound, S2 normal heart sound, no murmurs, no rub and no gallops Cardio Narrative: Irregular irregular rhythm with no murmur and no gallop. GI normal to inspection, nondistended, normoactive bowel sounds, soft to palpation and non-tender GI Narrative: No guarding with palpation. No abnormal tympany. Extremity no calf tenderness Extremity Narrative: The skin of the distal LE's is dry and a little shiny It does not pit. Weight is stable. General Extremity: Negative for edema Skin no wounds and no jaundice General Skin Exam: no breakdown Rashes: no rashes Wounds: Negative for wounds noted Neuro CN's II-XII intact bilaterally, no focal motor deficits and no sensory deficits noted Coordination / Balance: [id number] test normal and [id number] test normal Speech: speech normal Psych thought process normal, cooperative, affect normal, denies homicidal ideation and denies suicidal ideation Appearance: appropriate Assessment & Plan Assessment/Plan (1) Debility: (2) Fall: PLAN: Mechanical, tripped over a throw rug. (3) Fracture of left radius and ulna: PLAN: No surgery......casted. Repeat XRAY at [facility] shows good alignment prior to DC. (4) Subarachnoid hemorrhage: (5) Subdural hematoma: (6) History of CHF (congestive heart failure): PLAN: BL pleural effusions at previous hospital and had a chest tube to drain, path with no malignant cells. EF 55%. PLAN: Plan 1. Continue therapy 2. Recheck lab on Monday 3. Plan discharge next Monday when her son Mike arrives to help care for her at discharge 4. Will need to follow-up with cardiology, etiology of the congestive heart failure with bilateral pleural effusions is unknown at this time. 5. Smoking cessation was discussed once again. Charges/Coding Visit Charges Inpatient E&M: 39178 Subs Hosp L2
--- NOTE | 2022-08-15 11:48 | PCM.RU.PYE ---
Admission Information Primary Diagnosis:: Post stroke debility Status Changes from Prescreening?: No changes Identified Actual Problem List:: Falls, Pain, ALteration in Cmfrt, Mobility Impaired, Self Care Deficit, Fluid Change-Dehydration and Alteration-Leisure Activ. Potential Problem List:: DVT, Bleeding, Infection, UTI, Aspiration, Falls, Skin Integrity and Depression Risk of Complications DVT: MIGDALIA Barba and - (Heparin 5000 units subcu every 12 hours) Bleeding: Monitor Lab Values, Nursing to Teach Precautions for anti-coagulation therapy., Wound, if applicable, to be assessed every shift. and Stroke patients assessed for lethargy or change in status. Infection: Clinical Staff to Monitor for S/S of infection: and S/S of infection include fever, redness, warmth, etc. Urinary Tract Infection: Monitor for frequency, burning, discomfort, or incontinence. and Nursing will obtain urine sample for urinalysis and C&S when ordered. Aspiration: Clinical staff will monitor for coughing, drooling, congestion., Speech will evaluate swallowing and dsyphasia. and Nursing will monitor patient swallowing during meals. Falls: Patient will be evaluated for Fall Precautions and Patient will be placed on Fall Precautions as indicated per protocol. Skin Breakdown: Nursing will assess skin daily using assessment tool. and Nursing will place on Skin Breakdown Precautions as indicated. Pain: Clinical staff will assess patient's pain level per protocol., Medications will be given, if needed, and the pain level reassessed. and Other methods: Massage, distraction, decrease stimulus, etc. used PRN. Plan of Care Patient requires physician specializing in physical medicine and rehab oversight to provide close medical supervision of rehab issues including: Pain Management, Sleep Problems, Bowel and Bladder, Medical and co-morbidity Management, DVT prophylaxis, Rehabilitation Leadership and Coordination of treatment team Patient needs Physical Therapy: For a minimum of 1 hour and At least 5 out of 7 days Patient needs Physical Therapy to improve:: Mobility, Strengthening, Transfers, Stretching, ROM, Endurance, Stairs, Gait and Balance Patient needs Occupational Therapy: For a minimum of 1 hour and At least 5 out of 7 days Patient needs Occupational Therapy to improve ADL's incl.: Eating, Grooming, Bathing, Dressing, Toileting, Toilet transfers, Community Reintegration, Higher functioning activities, Household tasks, Adaptive Equipment, Splinting and Other activities as determined Patient requires speech therapy: For a minimum of 1 hour and At least 5 out of 7 days Patient requires speech therapy for: Swallowing, Cognition, Language Skills and Compensatory Strategies Patient requires 24/7 Rehabilitation Nursing for: Pain Issues, Identifying and preventing risk factors, Monitoring and reporting current medical conditions, Assisting with ambulation, transfer, and all ADL's, Teaching patients about disease process and medications, Family teaching, Providing safe environment, Bowel and Bladder Issues, Skin integrity and Medication Management Patient needs Software Intern/ Case Management for: Discharge Planning, Arranging Home Equipment or Services and Family Interventions Patient needs Dietary and Nutrition Services for: Adequate Nutrition, Nutritional Supplements and Nutritional Education Goals Patient will remain: free from falls and or injury at time of discharge. Patient will perform bed mobility at: MOD I level of assist. Patient will complete transfers from bed to chair at: MOD I level of assist. Patient will ambulate: 100 feet, with LRD and - (250 feet with least restrictive device or no device at mod I on various surfaces to allow the patient to return to her home.) Patient will complete upper body dressing at: MOD I level of assist. Patient will complete lower body dressing at: MOD I level of assist. Patient will complete toileting at: MOD I level of assist. Patient will perform bathing at: MOD I level of assist. Patient will complete grooming at: MOD I level of assist. Patient will complete home management skills at: MOD I level of assist. Patient will achieve: - (1 curb step and 3 steps with 1 handrail at standby assist) Patient will have pain level of: of 3 or less Patient's skin will: remain intact Patient will receive: adequate nutrition. Discharge Planning Pt Prognosis for Sig. Practical Improv. w/in Reasonable Time: Good Estimated Length of stay (days): 14 Anticipated D/C Destination: Home with Home Health Was Preadmission Assessment Accurate?: Yes
--- NOTE | 2022-08-15 12:48 | CASEMGMT ---
Addendum entered by Jeanne Saleh 08/17/22 09:43: Error: DC date 08/22 Original Note: Social Work IDT met with patient, niece then son via conference call for Team meeting. Discussed patient's progress in PT/OT/ST/SN. Educated to [facility] insurance with [employer] 08/17 and continued stay is not guaranteed. Son is arriving into town to assist pt at home on 08/21. IDT agreeable to DC 08/22. Recommending skilled C PT/OT/ST/ROTH. Printed list and provided to pt and niece via [facility] Guide with quality and resource data of skilled HHC agencies. Pt needs a cane and shower chair. SW educated to referring to [facility] for cane, but insurance does not cover it, niece can purchase that and a shower chair at the same time. Son to transport. Plan: DC home with son 08/17, HHC PT/OT/ST/ROTH, cane, shower chair SUSAN SwansonW
[2022-08-15] MEDS: Acetaminophen 500 MG Tablet 1000 MG PO ×2 (13:34→21:01)
[2022-08-15] MEDS: traMADol 50 MG Tablet 25 MG PO (15:23)
--- NOTE | 2022-08-15 18:40 | RAD_ITS ---
INDICATION: pain -- recent radius and ulna fracture EXAMINATION/TECHNIQUE: X-RAY - LEFT XR Forearm 2 Views 2 VIEWS COMPARISON: 08/05/2022 FINDINGS: SOFT TISSUES: No soft tissue swelling or gas. No radiopaque foreign body. BONES/JOINTS: Splint obscures fine bony detail. There is a distal radial metaphyseal and distal ulnar metaphyseal fracture. There is near-anatomic alignment. There is no evidence of significant periosteal new bone growth. RAD/Forearm 2 Views IMPRESSION: Splint obscures fine bony detail. Stable distal radial and ulnar metaphyseal fractures. Electronically Signed: Miguel Elias MD, TORRI at 19:59 EDT ,
[2022-08-15 19:55] VITALS: BP 130/58; PULSE 110; RESP 15; TEMP 36.2; O2SAT 98
[2022-08-15] MEDS: Senna/Docusate Sodium 1 Tablet 2 TABLET PO (21:00)
[2022-08-15] MEDS: Atorvastatin Calcium 80 MG Tablet PO (21:00)
[2022-08-15] MEDS: Verapamil SR 240 MG Tablet PO (21:01)
[2022-08-16] MEDS: Menthol/Lanolin/Calamine/Znox 113 GM Tube 1 APPLIC TOPICAL ×2 (05:07→20:04)
[2022-08-16] MEDS: Acetaminophen 500 MG Tablet 1000 MG PO ×3 (05:07→19:57)
[2022-08-16 06:37] VITALS: BMI 16.9
[2022-08-16 07:20] VITALS: BP 114/48; PULSE 82; RESP 17; TEMP 36.2; O2SAT 95
[2022-08-16] MEDS: Cholecalciferol (VIT D3) 25 MCG TABLET (1,000 UNITS) PO (08:02)
[2022-08-16] MEDS: Verapamil SR 240 MG Tablet 120 MG PO (08:02)
[2022-08-16] MEDS: Ascorbic Acid 500 MG Tablet PO (08:03)
[2022-08-16] MEDS: Lisinopril 5 MG Tablet PO (08:03)
[2022-08-16] MEDS: Heparin Injection (Vial) 5,000 UNIT/ML VIAL 5000 UNIT SC ×2 (08:04→19:57)
[2022-08-16] MEDS: Verapamil SR 240 MG Tablet PO (19:57)
[2022-08-16] MEDS: Atorvastatin Calcium 80 MG Tablet PO (19:58)
[2022-08-16] MEDS: Senna/Docusate Sodium 1 Tablet 2 TABLET PO (19:58)
[2022-08-16 20:06] VITALS: BP 118/53; PULSE 104; RESP 16; TEMP 36.6; O2SAT 95
[2022-08-16 20:13] VITALS: PULSE 104
[2022-08-17] MEDS: Acetaminophen 500 MG Tablet 1000 MG PO ×3 (05:07→21:36)
[2022-08-17] MEDS: Menthol/Lanolin/Calamine/Znox 113 GM Tube 1 APPLIC TOPICAL ×2 (05:10→22:25)
[2022-08-17 06:00] VITALS: BMI 17.1
[2022-08-17 08:13] VITALS: BP 126/55; PULSE 108; RESP 16; TEMP 36.7; O2SAT 94
[2022-08-17] MEDS: Ascorbic Acid 500 MG Tablet PO (08:32)
[2022-08-17] MEDS: Verapamil SR 240 MG Tablet 120 MG PO (08:32)
[2022-08-17] MEDS: Lisinopril 5 MG Tablet PO (08:33)
[2022-08-17] MEDS: Heparin Injection (Vial) 5,000 UNIT/ML VIAL 5000 UNIT SC ×2 (08:33→21:35)
[2022-08-17] MEDS: Cholecalciferol (VIT D3) 25 MCG TABLET (1,000 UNITS) PO (08:33)
[2022-08-17 13:37] LABS: Bacteria 0 SEEN /hpf (None Seen); Mucous, Urine 0 SEEN /hpf (<or=2+); Red Blood Cells-Urine 0 SEEN /hpf (0-5); Squamous Epithelial Cells - UA 0 SEEN /hpf (5-10); White Blood Cells 0 SEEN /hpf (0-5)
[2022-08-17 13:40] LABS: Color, Urine Straw (Yellow); Glucose, Dipstick Normal (Normal); Ketone-Dipstick Negative (Negative); Leukocyte Esterase-Dipstick Negative /ul (Negative); Nitrite-Dipstick Negative (Negative); Occult Blood-Urine Negative /ul (Negative); Protein-Dipstick Negative (Negative); Urine Bilirubin Dipstick Negative (Negative); Urine Clarity Clear (Clear); Urine Urobilinogen Normal (Normal)
--- NOTE | 2022-08-17 15:59 | CASEMGMT ---
Addendum entered by Jeanne Saleh 08/18/22 13:16: [facility] and are able to accept. SW notified pt. Pt agreeable. Addendum entered by Jeanne Saleh 08/17/22 16:17: [facility] Will await [facility] response. Original Note: Social Work SW followed up with pt on C choices. Pt prefers [facility], [facility] or [facility]. Referrals made via [facility]. SUSAN SwansonW
[2022-08-17 19:04] VITALS: BP 126/63; PULSE 89; RESP 16; TEMP 37.2; O2SAT 93
[2022-08-17] MEDS: Atorvastatin Calcium 80 MG Tablet PO (21:35)
[2022-08-17] MEDS: Zolpidem Tartrate 5 MG Tablet PO (21:35)
[2022-08-17] MEDS: Verapamil SR 240 MG Tablet PO (21:35)
[2022-08-17 22:00] VITALS: PULSE 89; RESP 16; O2SAT 96
[2022-08-18] MEDS: Acetaminophen 500 MG Tablet 1000 MG PO ×3 (05:21→21:13)
[2022-08-18] MEDS: Menthol/Lanolin/Calamine/Znox 113 GM Tube 1 APPLIC TOPICAL ×2 (05:23→21:13)
[2022-08-18 06:00] VITALS: BMI 17.3
[2022-08-18] MEDS: Verapamil SR 240 MG Tablet 120 MG PO (07:58)
[2022-08-18] MEDS: Cholecalciferol (VIT D3) 25 MCG TABLET (1,000 UNITS) PO (07:58)
[2022-08-18] MEDS: Ascorbic Acid 500 MG Tablet PO (07:58)
[2022-08-18] MEDS: Heparin Injection (Vial) 5,000 UNIT/ML VIAL 5000 UNIT SC ×2 (07:59→21:13)
[2022-08-18 08:51] VITALS: BP 123/60; PULSE 89; RESP 15; TEMP 36.5; O2SAT 92
[2022-08-18 08:52] VITALS: PULSE 89
--- NOTE | 2022-08-18 15:28 | PCM.PROGNOTE ---
Subjective Subjective Afebrile VSS-the heart rate is down into the 80s today and her blood pressure is within goal. Maintaining appropriate oxygen saturation on RA Oral intake is adequate Discussed with nursing - Dayana is having frequent stools and they are a yellow/mustard color and very loose. Has not been taking any of the Miralax or senna. Reviewed the PT/OT/ST notes Medication list reviewed. Dayana does not seem too concerned about the loose yellow stool......she just thinks it is either due to one of the meds or to something she ate. She still has a GB. Denies abd pain, nausea and vomiting. She also denies chest pain, shortness of breath, cough, palpitations, lightheadedness, calf pain and dysuria. Objective Data Objective Data Vital Signs: Vital Signs Temp Pulse Resp BP Pulse Ox O2 Del Method 97.7 F L 89 15 123/60 H 92 Room Air 08/18/22 08:51 08/18/22 08:52 08/18/22 08:51 08/18/22 08:51 08/18/22 08:51 08/18/22 08:51 Oxygen Delivery Method Room Air Weight: 88 lb 10.013 oz Body Mass Index (BMI) 17.3 Intake & Output: Intake and Output for Last 24 Hours 08/16/22 08/17/22 08/18/22 23:59 23:59 23:59 Intake Total 920 / 1040 1500 / 1500 540 / 540 Output Total 400 / 750 1200 / 1200 500 / 500 Balance 520 / 290 300 / 300 40 / 40 Lab / Micro Data Result Diagrams: 08/12/22 05:18 08/12/22 05:18 Physical Exam Const alert and no apparent distress General Appearance: cooperative HEENT moist oral mucous membranes Resp normal respiratory effort, no use of accessory muscles and clear to auscultation bilaterally Effort and Inspection: Negative for tachypneic or labored Cardio no gallops Cardio Narrative: Irregular irregular rhythm with a resting heart rate of 89. No murmur, no rub. She denies feeling lightheaded denies palpitations. GI normal to inspection, nondistended, normoactive bowel sounds, non-tender and non-distended GI Narrative: no guarding with palpation Extremity Negative for no calf tenderness General Extremity: Negative for edema Skin General Skin Exam: no breakdown Rashes: no rashes Psych affect normal Assessment & Plan Assessment/Plan (1) Debility: (2) Fall: PLAN: Mechanical, tripped over a throw rug. (3) Fracture of left radius and ulna: PLAN: No surgery......casted (4) Subarachnoid hemorrhage: (5) Subdural hematoma: (6) History of CHF (congestive heart failure): PLAN: BL pleural effusions at previous hospital and had a chest tube to drain, path with no malignant cells. (7) Insomnia: (8) Pulmonary hypertension: PLAN: Moderate (9) Peripheral vascular disease: PLAN: Follows with Dr. Hill. (10) Left ventricular hypertrophy: (11) Tobacco dependence: (12) Chronic renal disease: (13) Chronic a-fib: PLAN: Was not on anticoagulation as OP. (14) HTN (hypertension): PLAN: Controlled (15) Dehydration, moderate: PLAN: Better following hydration. PLAN: Plan 1. Continue therapy 2. Recheck a CBC and a BMP in the AM. 3. Send a stool sample for Hemoccult, fecal leukocytes, enteric pathogen panel 4. Should follow up with cardiology post DC and will need to follow up with ortho Charges/Coding Visit Charges Inpatient E&M: 17945 Subs Hosp L2
[2022-08-18 19:26] VITALS: BP 133/59; PULSE 97; RESP 16; TEMP 37; O2SAT 99
[2022-08-18] MEDS: Atorvastatin Calcium 80 MG Tablet PO (21:12)
[2022-08-18] MEDS: Zolpidem Tartrate 5 MG Tablet PO (21:12)
[2022-08-18] MEDS: Verapamil SR 240 MG Tablet PO (21:12)
[2022-08-18 21:21] VITALS: PULSE 94; RESP 16; O2SAT 99
[2022-08-19] MEDS: Menthol/Lanolin/Calamine/Znox 113 GM Tube 1 APPLIC TOPICAL ×2 (05:20→21:03)
[2022-08-19] MEDS: Acetaminophen 500 MG Tablet 1000 MG PO ×3 (05:20→20:58)
[2022-08-19 06:00] VITALS: BMI 16.7
[2022-08-19 06:00] LABS: Absolute Lymphocyte Count 1.57 X10^3/uL (0.83-4.51); Absolute Neutrophil Count 7.2 X10^3/uL (2.0-7.7); Basophil# 0.04 X10^3/uL; Basophil% 0.4 % (0-1); Eosinophil# 0.14 X10^3/uL; Eosinophils% 1.4 % (0-5); Hematocrit 41.7 % (37-47); Hemoglobin 13.1 g/dL (12.0-15.0); Lymphocyte # 1.57 X10^3/ul (0.83-4.51); Mean Corp Hgb Conc 31.4 g/dL (32-36); Mean Corpuscular Hgb 28.9 pg (27.0-32.0); Mean Corpuscular Volume 92.1 fL (81-99); Mean Platelet Vol. 9.5 fl (6.2-12.0); Monocyte# 0.87 X10^3/uL; Monocyte% 8.9 % (0-10); NRBC Flagged by Analyzer 0 % (0-5); Neutrophil # 7.15 X10^3/uL (2.7-7.7); Platelet Count 557 K/mm3 (150-450); RBC Distribution Width CV 14.9 % (11.6-14.6); RBC Distribution Width SD 49.7 fl (35.1-43.9); Red Blood Count 4.53 M/mm3 (4.2-5.4); White Blood Count 9.8 K/mm3 (4.4-11.0)
[2022-08-19 06:20] LABS: Anion Gap 3 (5-15); BUN 14 mg/dL (7-18); BUN/Creat Ratio 15.5 RATIO (10-20); Calcium,Total 9.2 mg/dL (8.5-10.1); Chloride 104 mmol/L (98-107); Creatinine, Serum 0.91 mg/dL (0.55-1.02); EST Glomerular Filtration Rate 63 mL/min (>60); Est Glom Filt Rate - Afr Amer 76 mL/min (>60); Estimated Creatinine Clearance 28.16 ml/min; Glucose 98 mg/dL (74-106); Potassium 4.5 mmol/L (3.5-5.1); Sodium Level 134 mmol/L (136-145)
[2022-08-19 07:50] VITALS: BP 156/75; PULSE 98; RESP 16; TEMP 36.9; O2SAT 94
[2022-08-19] MEDS: Verapamil SR 240 MG Tablet 120 MG PO (08:10)
[2022-08-19] MEDS: Heparin Injection (Vial) 5,000 UNIT/ML VIAL 5000 UNIT SC ×2 (08:10→20:58)
[2022-08-19] MEDS: Lisinopril 5 MG Tablet PO (08:10)
[2022-08-19] MEDS: Cholecalciferol (VIT D3) 25 MCG TABLET (1,000 UNITS) PO (08:10)
[2022-08-19] MEDS: Ascorbic Acid 500 MG Tablet PO (08:11)
[2022-08-19] MEDS: traMADol 50 MG Tablet 25 MG PO (08:29)
--- NOTE | 2022-08-19 18:47 | PN_ITS ---
Subjective Subjective Afebrile VSS-heart rate and blood pressure are well controlled. Maintaining appropriate oxygen saturation on RA Oral intake is good Discussed with nursing - no problems that need addressed Reviewed the PT/OT/ST notes Medication list reviewed. Dayana denies lightheadedness, vertigo, CP, SOB at rest, SOB with exertion, cough, nausea, vomiting, abd pain, diarrhea, constipation, dysuria, calf pain and ankle swelling. She is sleeping well now and she is only taking Tylenol for pain. Objective Data Objective Data Vital Signs: Vital Signs Temp Pulse Resp BP Pulse Ox O2 Del Method 98.4 F 98 16 156/75 H 94 Room Air 08/19/22 07:50 08/19/22 07:50 08/19/22 07:50 08/19/22 07:50 08/19/22 07:50 08/19/22 07:50 Oxygen Delivery Method Room Air Weight: 85 lb 8.63 oz Body Mass Index (BMI) 16.7 Intake & Output: Intake and Output for Last 24 Hours 08/17/22 08/18/22 08/19/22 23:59 23:59 23:59 Intake Total 1500 / 1500 1060 / 1060 1400 / 1400 Output Total 1200 / 1200 1025 / 1025 1300 / 1300 Balance 300 / 300 35 / 35 100 / 100 Lab / Micro Data Result Diagrams: 08/19/22 05:48 08/19/22 05:48 Labs: Laboratory Results - last 24 hr 08/19/22 05:48: WBC 9.8, RBC 4.53, Hgb 13.1, Hct 41.7, MCV 92.1, MCH 28.9, MCHC 31.4 L, RDW Std Deviation 49.7 H, RDW Coeff of Jenny 14.9 H, Plt Count 557 H, MPV 9.5, Immature Gran % (Auto) 0.300, Neut % (Auto) 73.0 H, Lymph % (Auto) 16.0 L, [place] % (Auto) 8.9, Eos % (Auto) 1.4, Baso % (Auto) 0.4, Absolute Neuts (auto) 7.2, Absolute Lymphs (auto) 1.57, Nucleated RBC % 0 08/19/22 05:48: Sodium 134 L, Potassium 4.5, Chloride 104, Carbon Dioxide 27.0, Anion Gap 3 L, BUN 14, Creatinine 0.91, Estim Creat Clear Calc 28.16, Est GFR (MDRD) Af Amer 76, Est GFR (MDRD) Non-Af 63, BUN/Creatinine Ratio 15.5, Glucose 98, Calcium 9.2 Micro: Microbiology 08/18/22 15:00 Stool Enteric Bacteriology - Final 08/18/22 15:00 Stool Stool Lactoferrin - Final 08/18/22 15:00 Stool Stool Occult Blood (MONSE) - Final Physical Exam Const alert, oriented x3 and no apparent distress General Appearance: cooperative Resp clear to auscultation bilaterally Effort and Inspection: Negative for tachypneic, respiratory distress or labored Auscultation: diminished lung sounds Cardio no murmurs and no gallops Cardio Narrative: Irregular irregular rhythm with controlled ventricular response GI normal to inspection, nondistended, normoactive bowel sounds, soft to palpation and non-tender GI Narrative: No guarding with palpation. Extremity no calf tenderness General Extremity: Negative for edema Skin Skin Narrative: The fingers on her left hand are less swollen now that she is keeping it elevated. She has intact sensation to her fingers on the left hand and they are warm to touch. General Skin Exam: no breakdown Rashes: no rashes Assessment & Plan Assessment/Plan (1) Debility: (2) Fall: PLAN: Mechanical, tripped over a throw rug. (3) Fracture of left radius and ulna: PLAN: No surgery......casted. [facility] XRAY at [facility] shows good alignment prior to DC. (4) Subarachnoid hemorrhage: (5) Subdural hematoma: (6) History of CHF (congestive heart failure): PLAN: BL pleural effusions at previous hospital and had a chest tube to drain, path with no malignant cells. EF 55%. PLAN: Plan 1. Continue therapy 2. Dayana would like her prescriptions faxed to [facility] so they will be ready at the time she is discharged. 3. Plan discharge on Monday to home. Her son Mike will be in town to help her as long as she needs him to be. 4. She will follow-up with orthopedics at discharge and I recommend she follows up with cardiology because she recently had bilateral pleural effusions s econdary to congestive heart failure with preserved ejection fraction. She also has atrial fibrillation chronically and significant peripheral vascular disease in her lower extremities. She is not routinely on anticoagulation. Charges/Coding Visit Charges Inpatient E&M: 89690 Subs Hosp L2
[2022-08-19 20:22] VITALS: BP 121/60; PULSE 92; RESP 18; TEMP 36.8; O2SAT 98
[2022-08-19] MEDS: Zolpidem Tartrate 5 MG Tablet PO (20:57)
[2022-08-19] MEDS: Verapamil SR 240 MG Tablet PO (20:57)
[2022-08-19] MEDS: Atorvastatin Calcium 80 MG Tablet PO (20:57)
[2022-08-20 05:20] VITALS: BMI 16.9
[2022-08-20] MEDS: Acetaminophen 500 MG Tablet 1000 MG PO ×3 (05:28→21:50)
[2022-08-20] MEDS: Menthol/Lanolin/Calamine/Znox 113 GM Tube 1 APPLIC TOPICAL ×2 (05:33→21:58)
[2022-08-20] MEDS: Ascorbic Acid 500 MG Tablet PO (07:45)
[2022-08-20 08:06] VITALS: BP 129/65; PULSE 99; RESP 16; TEMP 36.8; O2SAT 92
[2022-08-20] MEDS: Heparin Injection (Vial) 5,000 UNIT/ML VIAL 5000 UNIT SC ×2 (09:43→21:55)
[2022-08-20] MEDS: Verapamil SR 240 MG Tablet 120 MG PO (09:44)
[2022-08-20] MEDS: Cholecalciferol (VIT D3) 25 MCG TABLET (1,000 UNITS) PO (09:45)
[2022-08-20] MEDS: Lisinopril 5 MG Tablet PO (09:45)
[2022-08-20] MEDS: traMADol 50 MG Tablet 25 MG PO (11:58)
[2022-08-20 19:21] VITALS: BP 105/50; PULSE 80; RESP 16; TEMP 36.7; O2SAT 96
[2022-08-20] MEDS: Zolpidem Tartrate 5 MG Tablet PO (21:50)
[2022-08-20] MEDS: Atorvastatin Calcium 80 MG Tablet PO (21:50)
[2022-08-20] MEDS: Verapamil SR 240 MG Tablet PO (21:50)
[2022-08-21 05:05] VITALS: BMI 17.0
[2022-08-21] MEDS: Acetaminophen 500 MG Tablet 1000 MG PO ×3 (05:07→21:07)
[2022-08-21] MEDS: Menthol/Lanolin/Calamine/Znox 113 GM Tube 1 APPLIC TOPICAL ×2 (05:08→20:21)
[2022-08-21 08:00] VITALS: BP 121/61; PULSE 93; RESP 16; TEMP 37.1; O2SAT 91
[2022-08-21] MEDS: Verapamil SR 240 MG Tablet 120 MG PO (08:29)
[2022-08-21] MEDS: Lisinopril 5 MG Tablet PO (08:29)
[2022-08-21] MEDS: Cholecalciferol (VIT D3) 25 MCG TABLET (1,000 UNITS) PO (08:29)
[2022-08-21] MEDS: Ascorbic Acid 500 MG Tablet PO (08:30)
[2022-08-21] MEDS: Heparin Injection (Vial) 5,000 UNIT/ML VIAL 5000 UNIT SC ×2 (08:30→20:20)
[2022-08-21 20:09] VITALS: BP 124/59; PULSE 88; RESP 18; TEMP 36.5; O2SAT 94
[2022-08-21] MEDS: Verapamil SR 240 MG Tablet PO (20:12)
[2022-08-21] MEDS: Zolpidem Tartrate 5 MG Tablet PO (20:21)
[2022-08-21] MEDS: Atorvastatin Calcium 80 MG Tablet PO (20:21)
[2022-08-21 20:26] VITALS: PULSE 84; RESP 16
[2022-08-22 06:00] VITALS: BMI 16.9
[2022-08-22] MEDS: Acetaminophen 500 MG Tablet 1000 MG PO (06:06)
[2022-08-22] MEDS: Menthol/Lanolin/Calamine/Znox 113 GM Tube 1 APPLIC TOPICAL (06:08)
[2022-08-22 07:17] VITALS: BP 129/57; PULSE 86; RESP 16; TEMP 36.8; O2SAT 93
[2022-08-22] MEDS: Heparin Injection (Vial) 5,000 UNIT/ML VIAL 5000 UNIT SC (07:51)
[2022-08-22] MEDS: Ascorbic Acid 500 MG Tablet PO (07:52)
[2022-08-22] MEDS: Verapamil SR 240 MG Tablet 120 MG PO (07:52)
[2022-08-22] MEDS: Cholecalciferol (VIT D3) 25 MCG TABLET (1,000 UNITS) PO (07:52)
[2022-08-22] MEDS: Lisinopril 5 MG Tablet PO (07:53)
--- NOTE | 2022-08-22 10:19 | PCM.DC ---
Discharge Instructions Diet Discharge Diet: - (Pureed meats only but, otherwise a regular diet. ) Activity Discharge Activity: May Not Drive, May Shower and - (use a cane when ambulating in the community. ) Weight Bearing Status: Full weight bearing Dressing / Incision Call your doctor if you observe: Fever of 101 or Higher, Inability to urinate, Inability to have a bowel movement, Shortness of breath, Dizziness, Fainting spells, Swelling in the ankles, Chest pain, Increased palpitations (irregular heartbeat), Calf discomfort and - (STROKE symptoms: facial droop, slurred speech, inability to get words out, weakness on 1 side of the body and not the other, numbness on 1 side of the body and not the other, inability to maintain your balance sitting or standing, vertigo. ) Follow Up Care Please Follow Up With: Deidre Borrero MD When: within the next 1-2 weeks Test Results: Test results from this visit will be discussed in further detail at your follow-up appointment, if applicable. Pending Tests Upon Discharge: none Discharge Plan Admission Admit Date/Time: 08/11/22 19:02 Primary Reason for Your Visit: Physical debility due to SDH and SAH due to a fall. Attending Provider: Cassandra Gerardo Primary Care Provider: Deidre Borrero Instructions Patient Instructions: Vitamin D, Pleural Effusion, Hemorrhagic Stroke ..., Bone Density Study, What Is Osteoporosis?, Pulmonary Hypertension, What Is a Subdural Hematoma?, AFib, ED Peripheral Artery Disease (PAD) Additional Instructions / Restrictions: 1. You sustained several injuries when you tripped over the rug and fell. You had bleeding between the skull and the brain called a subdural hematoma and you also had Subarachnoid hemorrhage which is bleeding on the surface of the brain that leaks into the areas around the brain and between the lobes of the brain. You also fractured your arm. 2. You have some problems with the heart and the rhythm of the heart. You have atrial fibrillation (which is a risk factor for stroke), you have pulmonary hypertension (more likely than not related to smoking) and some of the chambers of your heart are dilated. When you were at the other hospital you had fluid around both lungs and this can make you very short of breath. This fluid is called pleural effusion and they had to drain the fluid with a chest tube. I have given you some literature to read about these things. I think it would be a good idea to follow up with a heart doctor, or international broadcast music librarian after you are discharged from rehab. 3. You also have disease in the arteries in your legs, related to smoking. If this gets worse there may not be enough blood that gets through the narrowed arteries in the legs to get to the feet. This will lead to breakdown of the tissue and openings in the skin and increased pain with walking......you can even have pain when you are not walking. I really think you should stop smoking. We have a smoking cessation program here at the hospital to help people stop if they need help. All you have to do is call the hospital and ask to be connected to the smoking cessation coordinator. 4. Your lab work looks very good. The only thing that is a little off the the sodium is a little low and this is likely due to the bleeding in the brain. It is stable and we do not need to treat this. 5. STROKE symptoms: facial droop, slurred speech, inability to get words out, weakness on 1 side of the body and not the other, numbness on 1 side of the body and not the other, inability to maintain your balance sitting or standing, vertigo. If you have any of these symptoms call 911 and come to the ER as fast as you can.......you may be having a stroke and the longer you wait the worse it will be......time is brain and AFIB causes clots that block arteries.....you may be a candidate for a Thrombolytic (clot buster) and the faster we can get it in you the better your prognosis will be for recovery. 6. It has been a pleasure meeting you Dayana and getting to know you. You worked hard and did very well in therapy. It you or Mike have any questions after you leave rehab please do not hesitate to call me. OFFICE: [phone] CELL: [phone] PS: 1. If you have not had a bone density study within the past 1-2 years you should have one......you are at high risk for osteoporosis and you do not want to have any more fractures and there is good treatment for osteoporosis available. 2. If you do not want to go the whole way to [place] to see a international broadcast music librarian there is a very good group of cardiologists at the hospital here.......[facility]. 3. If you need a referral to see cardiology I am sure Dr. Borrero will give you one and is she doesn't call me. Discharge Orders/Prescriptions Prescriptions: New tramadol 50 mg Tablet 25 mg PO Q6H PRN PRN (Reason: Pain Score 1-10) 7 Days Qty: 20 0RF acetaminophen [Tylenol] 325 mg capsule 650 mg PO Q6H PRN (Reason: fever or pain) Qty: 100 0RF verapamil 120 mg capsule,ext rel. pellets 24 hr See Rx Instructions .ROUTE .COMPLEX Qty: 90 0RF Rx Instructions: take one capsule at 10 AM daily and 2 capsules at bedtime. Continued ascorbic acid (vitamin C) 500 mg capsule 500 mg PO DAILY atorvastatin 80 mg tablet 80 mg PO QHS Qty: 30 0RF lisinopril [Zestril] 5 mg tablet 5 mg PO DAILY Qty: 30 0RF cholecalciferol (vitamin D3) 25 mcg (1,000 unit) capsule 25 mcg PO DAILY Qty: 30 0RF Discontinued verapamil 240 mg capsule,ext rel. pellets 24 hr 240 mg PO DAILY polyethylene glycol 3350 [Miralax] 17 gram Powder In Packet 17 g PO DAILY acetaminophen 500 mg Tablet 500 mg PO 0600,1200,2200 oxycodone 5 mg Tablet 2.5 mg PO Q4H PRN (Reason: Pain) Referrals / Follow Up: Dr Carrillo [Other] - 08/24/22 2:45 am (Wrist Fracture) [facility] [Other] - 08/30/22 1:00 pm (Intracranial Hemorrhage Subdural Hematoma ) Dr Ocampo [Other] - 08/30/22 3:[address] Sandoval [Other] - 10/04/22 10:45 am (Rectal Prolapse) [facility] [Other] (Call to make an appointment ) Deidre Borrero MD [Primary Care Provider] - 09/01/22 1:30 pm Disposition Disposition (needs filled in before D/C Order can be placed): Home Health Service
--- NOTE | 2022-08-22 11:15 | DS.PCM_ITS ---
Providers Date of Admission: 08/11/22 Date of Discharge: 08/22/22 Primary Care Physician: Dr. Deidre Borrero MD none Reason For Visit: SDH, SAH, fx of L radius and ulna Diagnosis Discharge Diagnosis (1) Debility: Status: Acute Code(s): R53.81 - Other malaise (2) Fall: Status: Acute Code(s): W19.XXXA - Unspecified fall, initial encounter Plan: Mechanical, tripped over a throw rug. (3) Fracture of left radius and ulna: Status: Acute Code(s): S52.92XA - Unspecified fracture of left forearm, initial encounter for closed fracture; S52.202A - Unspecified fracture of shaft of left ulna, initial encounter for closed fracture Plan: No surgery......casted. Repeat XRAY at [facility] shows good alignment prior to DC. (4) Subarachnoid hemorrhage: Status: Acute Code(s): I60.9 - Nontraumatic subarachnoid hemorrhage, unspecified (5) Subdural hematoma: Status: Acute Code(s): S06.5XAA - Traumatic subdural hemorrhage with loss of consciousness status u nknown, initial encounter (6) History of CHF (congestive heart failure): Status: Acute Code(s): Z86.79 - Personal history of other diseases of the circulatory system Plan: BL pleural effusions at previous hospital and had a chest tube to drain, path with no malignant cells. EF 55%. (7) Insomnia: Status: Resolved Code(s): G47.00 - Insomnia, unspecified (8) Pulmonary hypertension: Status: Chronic Code(s): I27.20 - Pulmonary hypertension, unspecified Plan: Moderate (9) Peripheral vascular disease: Status: Chronic Code(s): I73.9 - Peripheral vascular disease, unspecified Plan: Follows with Dr. Hill. (10) Left ventricular hypertrophy: Status: Chronic Code(s): I51.7 - Cardiomegaly (11) Tobacco dependence: Status: Chronic Code(s): F17.200 - Nicotine dependence, unspecified, uncomplicated (12) Chronic renal disease: Status: Chronic Code(s): N18.9 - Chronic kidney disease, unspecified (13) Chronic a-fib: Status: Chronic Code(s): I48.20 - Chronic atrial fibrillation, unspecified Plan: Was not on anticoagulation as OP. (14) HTN (hypertension): Status: Chronic Code(s): I10 - Essential (primary) hypertension Plan: Controlled (15) Dehydration, moderate: Status: Resolved Code(s): E86.0 - Dehydration Plan: (16) Hyponatremia: Status: Acute Code(s): E87.1 - Hypo-osmolality and hyponatremia Plan: Stable at 134-135 Plan 1. DC home with her son Mike 2. [facility] with Guilherme 3. Follow up with Dr. Borrero 4. Needs follow up with cardiology and orthopedics 5. Recommend a BMD if she has not had 1 in the past 1-2 years. 6. Resume Aspirin daily when OK with neuro Medications at Discharge Home Medications ascorbic acid (vitamin C) 500 mg capsule 500 mg PO DAILY supp 04/19/22 acetaminophen 325 mg capsule (Tylenol) 650 mg PO Q6H PRN fever or pain #100 caps 08/22/22 atorvastatin 80 mg tablet 80 mg PO QHS cholesterol #30 tabs 08/22/22 cholecalciferol (vitamin D3) 25 mcg (1,000 unit) capsule 25 mcg PO DAILY supp #30 caps 08/22/22 lisinopril 5 mg tablet (Zestril) 5 mg PO DAILY bp #30 tabs 08/22/22 tramadol 50 mg tablet 25 mg PO Q6H PRN PRN Pain Score 1-10 7 days #20 tabs verapamil 120 mg 24 hr capsule,extended release See Rx Instructions .Route .COMPLEX #90 caps 08/22/22 Hospital Course Operations None Procedures None Summary of Care Provided Minutes Spent on Discharge: 35 Hospital Course: BEN SALAMANCA, is a 86 YO F with a PMH of atrial fibrillation, chronic kidney disease, hypertension, peripheral vascular disease and tobacco dependence who presented to the ED at [facility] on 08/05/2022 after a mechanical fall (she tripped over her carpet) at home resulting in left wrist pain.? She admitted to hitting her head but denied loss of consciousness and also denied nausea/vomiting.? She was taking aspirin 325 mg daily but was on no anticoagulation.? Plain x-rays of the left wrist show distal radius and ulna fractures.? Chest x-ray showed bilateral pleural effusions, right greater than left.? A noncontrast CT brain showed a right subdural hematoma with no midline shift and right and left focal areas of subarachnoid hemorrhage.? CT of the cervical spine showed no acute fractures or spondylolisthesis.? A splint was applied to the left forearm and she was given Keppra for seizure prophylaxis.? She was transferred to the trauma center at [facility].? CT chest at [facility] showed a large right and moderate left pleural effusion and the heart was moderately enlarged.? There was mild to moderate coronary artery calcification.? No surgical intervention was needed other than a R chest tube to drain the pleural fluid which was serous and had no malignant cells per a PN from [facility].? The chemistries on the pleural fluid were not sent with the patient.? While at [facility] she was seen by PT/OT and acute rehab was recommended at [place].? Ben was transferred to [facility] acute rehab on 08/11/22 for 3 hours of therapy daily to restore function/independence at or as near as possible to her level of function prior to the fall.? BNP at [facility] was approximately 3800?? with a normal EF? The EMR from [facility] was reviewed.? The patient had a echocardiogram in April 2022 which showed a ejection fraction of 55% with no regional wall motion abnormalities.? The atria were of normal size.? There was bileaflet diffuse mitral valve thickening with moderate mitral annular geraldo cification and mild to moderate eccentric mitral valve insufficiency.? There was also moderate diffuse thickening of the tricuspid valve with 2+ tricuspid valve insufficiency.? The pulmonary artery systolic pressure was estimated at 58 which is considered moderate pulmonary hypertension.? There was +1 AI and trivial pulmonic valve insufficiency.? Echocardiogram at [facility] on 08/05/2022 showed a 55% ejection fraction with mildly dilated right atrium and a moderately dilated left atrium.? The IVC diameter was dilated and decreased less than 50% during inspiration which is indicative of elevated right atrial pressure estimated at 15. She was seen by Dr. Enrike Hill from vascular surgery in [facility] and was found to have diminished blood flow in her legs bilaterally with claudication at a distance of about 350 feet.? ANDREE on the right was 0.56 and on the left was 0.52.? She had no wounds.? He prescribed atorvastatin 80 mg daily and recommended aspirin daily.? She was provided with instructions regarding exercise 5 times a week.? She was reevaluated in 6 weeks and she found that she was able to walk further.? She was wearing the compression stockings ? (20 to 30 mmHg) prescribed by her PCP.? Note changes were made to her current drug regimen however vascular recommended decreasing compression to 16 to 20 mg given her severe peripheral vascular disease. Significant lab at admission to rehab included a Creat of 1.24. On PE she was very dry and she was hydrated. Creat decreased from 1.24 with a BUN of 10 on 08/05/2022 2 a creatinine of 0.91 on 08/19/2022 with a BUN of 14 and a estimated GFR of 63 which is consistent with stage II chronic renal failure however her estimated creatinine clearance is only 28.16. Sodium at discharge is 134 and stable. I suspect this is due to either SIADH or to cerebral salt wasting secondary to subdural hematoma and subarachnoid hemorrhages. Hemoglobin at discharge is 13.1 and the white blood cell count is normal. Hemoccult stool was negative. Ben was concerned about the alignment of the left radius and ulna because she felt it had shifted. An x-ray was obtained and showed stable distal radial and ulnar metaphyseal fractures. Ben did very well in therapy. With Occupational Therapy she was supervision/set up for eating, grooming and bathing. She required moderate assistance with upper body dressing and was standby assist for lower body dressing. She was standby assist for toilet transfer and toileting. She is c ontact-guard assist for tub and shower transfer. She is able to do 9 sit to stands in 30 seconds with pushing up on her right extremity only. She can a send/descend three 4 inch and two 7 inch steps with 1 handrail at contact-guard assist so that she may gain entry into her home. She has ambulated up to 65 feet at contact-guard assist with a single-point cane on various surfaces with no loss of balance. Ben was discharged home on 08/22/2022 and will have home health services with [facility]. Her son Mike will be assisting her at home for as long as he is needed. She has follow up appts scheduled for her. RX's were faxed to [facility] in [place]. Physical Exam Const alert, oriented x3 and no apparent distress Constitutional Narrative: Sitting in the recliner with her legs elevated. General Appearance: cooperative HEENT normocephalic, head/scalp atraumatic and moist oral mucous membranes Eyes PERRL and EOMs intact bilaterally Neck supple General: trachea midline Lymph Lymphatic: no lymphadenopathy noted Resp Resp Narrative: She is not tachypneic. Respirations were not labored. She has diminished breath sounds throughout with fine crackles in both lung bases posteriorly. No wheezing. She has no conversational dyspnea. She prefers to sleep with the head of the bed elevated for comfort and denies shortness of breath when lying flat. No paroxysmal nocturnal dyspnea. Denies dyspnea with ambulation. Cardio no murmurs, no rub and no gallops Cardio Narrative: Irregular irregular rhythm with controlled ventricular response. Denies palpitations. GI normal to inspection, nondistended, normoactive bowel sounds, soft to palpation and non-tender GI Narrative: No guarding with palpation. She has a soft abdominal bruit. Extremity no calf tenderness Extremity Narrative: The skin of the distal LE's is dry and a little shiny It does not pit. Weight is stable. General Extremity: Negative for clubbing or cyanosis Skin General Skin Exam: no breakdown Rashes: no rashes Wounds: Negative for wounds noted Neuro CN's II-XII intact bilaterally, no focal motor deficits and no sensory deficits noted Coordination / Balance: [id number] test normal and [id number] test normal Speech: speech normal Psych affect normal Appearance: appropriate Weight / BMI Weight Weight: 86 lb 6.739 oz Body Mass Index (BMI) 16.9 ABG / Lab / Microbiology Data Result Diagrams: 08/19/22 05:48 08/19/22 05:48 Microbiology: Microbiology 08/18/22 15:00 Stool Enteric Bacteriology - Final 08/18/22 15:00 Stool Stool Lactoferrin - Final 08/18/22 15:00 Stool Stool Occult Blood (MONSE) - Final D/C Instructions Discharge Diet: - (Pureed meats only but, otherwise a regular diet. ) Weight Bearing Status: Full weight bearing Call your doctor if you observe: Fever of 101 or Higher, Inability to urinate, Inability to have a bowel movement, Shortness of breath, Dizziness, Fainting spells, Swelling in the ankles, Chest pain, Increased palpitations (irregular heartbeat), Calf discomfort and - (STROKE symptoms: facial droop, slurred speech, inability to get words out, weakness on 1 side of the body and not the other, numbness on 1 side of the body and not the other, inability to maintain your balance sitting or standing, vertigo. ) Pending Tests Upon Discharge: none Please Follow Up With: Deidre Borrero MD When: within the next 1-2 weeks Meaningful Use Info Meaningful Use Diagnoses (Choose all that apply): CHF CHF YAHIR/ARB ordered at discharge?: Yes Documented LVEF (%): 55 Ischemic Stroke Reason antithrombotic not ordered: Treatment not Indicated (She has a SDH and SAH. Will defer to neurology to restart ASA.) Discharge Plan Admission Admit Date/Time: 08/11/22 19:02 Primary Reason for Your Visit: Physical debility due to SDH and SAH due to a fall. Attending Provider: Cassandra Gerardo Primary Care Provider: Deidre Borrero Instructions Patient Instructions: Vitamin D, Pleural Effusion, Hemorrhagic Stroke ..., Bone Density Study, What Is Osteoporosis?, Pulmonary Hypertension, What Is a Subdural Hematoma?, AFib, ED Peripheral Artery Disease (PAD) Additional Instructions / Restrictions: 1. You sustained several injuries when you tripped over the rug and fell. You had bleeding between the skull and the brain called a subdural hematoma and you also had Subarachnoid hemorrhage which is bleeding on the surface of the brain that leaks into the areas around the brain and between the lobes of the brain. You also fractured your arm. 2. You have some problems with the heart and the rhythm of the heart. You have atrial fibrillation (which is a risk factor for stroke), you have pulmonary hypertension (more likely than not related to smoking) and some of the chambers of your heart are dilated. When you were at the other hospital you had fluid around both lungs and this can make you very short of breath. This fluid is called pleural effusion and they had to drain the fluid with a chest tube. I have given you some literature to read about these things. I think it would be a good idea to follow up with a heart doctor, or event lighting specialist after you are discharged from rehab. 3. You also have disease in the arteries in your legs, related to smoking. If this gets worse there may not be enough blood that gets through the narrowed arteries in the legs to get to the feet. This will lead to breakdown of the tissue and openings in the skin and increased pain with walking......you can even have pain when you are not walking. I really think you should stop smoking. We have a smoking cessation program here at the hospital to help people stop if they need help. All you have to do is call the hospital and ask to be connected to the smoking cessation coordinator. 4. Your lab work looks very good. The only thing that is a little off the the sodium is a little low and this is likely due to the bleeding in the brain. It is stable and we do not need to treat this. 5. STROKE symptoms: facial droop, slurred speech, inability to get words out, weakness on 1 side of the body and not the other, numbness on 1 side of the body and not the other, inability to maintain your balance sitting or standing, vertigo. If you have any of these symptoms call 911 and come to the ER as fast as you can.......you may be having a stroke and the longer you wait the worse it will be......time is brain and AFIB causes clots that block arteries.....you may be a candidate for a Thrombolytic (clot buster) and the faster we can get it in you the better your prognosis will be for recovery. 6. It has been a pleasure meeting you Ben and getting to know you. You worked hard and did very well in therapy. It you or Mike have any questions after you leave rehab please do not hesitate to call me. OFFICE: [phone] CELL: [phone] PS: 1. If you have not had a bone density study within the past 1-2 years you should have one......you are at high risk for osteoporosis and you do not want to have any more fractures and there is good treatment for osteoporosis available. 2. If you do not want to go the whole way to [place] to see a event lighting specialist there is a very good group of cardiologists at the hospital here.......[facility] [place] [facility]. 3. If you need a referral to see cardiology I am sure Dr. Borrero will give you one and is she doesn't call me. Discharge Orders/Prescriptions Prescriptions: New tramadol 50 mg Tablet 25 mg PO Q6H PRN PRN (Reason: Pain Score 1-10) 7 Days Qty: 20 0RF acetaminophen [Tylenol] 325 mg capsule 650 mg PO Q6H PRN (Reason: fever or pain) Qty: 100 0RF verapamil 120 mg capsule,ext rel. pellets 24 hr See Rx Instructions .ROUTE .COMPLEX Qty: 90 0RF Rx Instructions: take one capsule at 10 AM daily and 2 capsules at bedtime. Continued ascorbic acid (vitamin C) 500 mg capsule 500 mg PO DAILY atorvastatin 80 mg tablet 80 mg PO QHS Qty: 30 0RF lisinopril [Zestril] 5 mg tablet 5 mg PO DAILY Qty: 30 0RF cholecalciferol (vitamin D3) 25 mcg (1,000 unit) capsule 25 mcg PO DAILY Qty: 30 0RF Discontinued verapamil 240 mg capsule,ext rel. pellets 24 hr 240 mg PO DAILY polyethylene glycol 3350 [Miralax] 17 gram Powder In Packet 17 g PO DAILY acetaminophen 500 mg Tablet 500 mg PO 0600,1200,2200 oxycodone 5 mg Tablet 2.5 mg PO Q4H PRN (Reason: Pain) Referrals / Follow Up: Dr Carrillo [Other] - 08/24/22 2:45 am (Wrist Fracture) [facility] Pappas [Other] - 08/30/22 1:00 pm (Intracranial Hemorrhage Subdural Hematoma ) Dr Ocampo [Other] - 08/30/22 3:[address] Sandoval [Other] - 10/04/22 10:45 am (Rectal Prolapse) [facility] [Other] (Call to make an appointment ) Deidre Borrero MD [Primary Care Provider] - 09/01/22 1:30 pm Disposition Disposition (needs filled in before D/C Order can be placed): Home Health Service Charges/Coding Visit Charges Inpatient E&M: 58903 Disch Hosp >30min
--- NOTE | 2022-08-22 13:48 | NURSING ---
discharged home with family. discharged instructions, medications and appointments reviewed with pt and family. denies questions or concerns
[2022-08-22 13:51] VITALS: BP 129/57; PULSE 86; RESP 16; TEMP 36.8; O2SAT 96
== END 2022-08-22 12:45 | disposition home health service (06) | DRG 949 ==
PROVIDERS: Admitting Provider Internal Medicine; PCP Family Medicine; Visit Provider Internal Medicine
DX: S06.5X0D Traumatic subdural hemorrhage without loss of consciousness, subsequent encounter (principal); I13.0 Hypertensive heart and chronic kidney disease with heart failure and stage 1 through stage 4 chronic kidney disease, or unspecified chronic kidney disease; E87.1 Hypo-osmolality and hyponatremia; I50.32 Chronic diastolic (congestive) heart failure; I48.20 Chronic atrial fibrillation, unspecified; I27.20 Pulmonary hypertension, unspecified; I73.9 Peripheral vascular disease, unspecified; N18.2 Chronic kidney disease, stage 2 (mild); I25.10 Atherosclerotic heart disease of native coronary artery without angina pectoris; I08.1 Rheumatic disorders of both mitral and tricuspid valves; F17.200 Nicotine dependence, unspecified, uncomplicated; W01.0XXD Fall on same level from slipping, tripping and stumbling without subsequent striking against object, subsequent encounter; S52.302D Unspecified fracture of shaft of left radius, subsequent encounter for closed fracture with routine healing; Z79.82 Long term (current) use of aspirin; G47.00 Insomnia, unspecified; Z79.899 Other long term (current) drug therapy; S52.202D Unspecified fracture of shaft of left ulna, subsequent encounter for closed fracture with routine healing; S06.6X0D Traumatic subarachnoid hemorrhage without loss of consciousness, subsequent encounter
CPT/HCPCS: 36415; 73090; 80048; 80053; 81001; 82274; 83630; 83735; 83880; 84100; 84443; 85025; 87506; 92507; 92610; 93005; 94667; 94668; 96125; 97110; 97112; 97116; 97129; 97130; 97162; 97166; 97530; 97535; 97802; 97803; 99406

== ENCOUNTER 2022-08-26 10:42 | Inpatient (IN) | payer MEDICARE, MEDICAID, SELFPAY ==
[2022-08-26] VITALS (13 sets, daily range): BP systolic 113–169; BP diastolic 61–80; PULSE 86–121; RESP 16–24; TEMP 35.5–36.6; O2SAT 83–100; BMI 17.1
--- NOTE | 2022-08-26 11:17 | EKG12_ITS ---
Test Reason : CP Blood Pressure : / mmHG Vent. Rate : 115 BPM Atrial Rate : 129 BPM P-R Int : 000 ms QRS Dur : 110 ms QT Int : 294 ms P-R-T Axes : 000 -26 147 degrees QTc Int : 406 ms Atrial fibrillation Septal infarct , age undetermined Inferior infarct , age undetermined ST & T wave abnormality, consider lateral ischemia Abnormal ECG When compared with ECG of 26-AUG-2022 10:55, MANUAL COMPARISON REQUIRED, DATA IS UNCONFIRMED Confirmed by BARNEY VICTORIA, HELADIO ([id number]), scientific publications editor MARY FERNÁNDEZ ([id number]) on 08/30/2022 1:29:15 PM Referred By: LISA Confirmed By:JUMA CORLEY MD
--- NOTE | 2022-08-26 11:21 | EX.ED.DYSGE1 ---
HPI <LINO Ponce - Last Filed: 08/26/22 14:08> History of Present Illness Chief Complaint: Shortness of Breath Narrative Narrative: Patient is an 86-year-old female with history of smoking, 4 cigarettes a day however she does not inhale. Patient had a recent admission, she was seen here on 08/05/2022 for a fall, head bleed. She was then transferred to [facility] where she had pleural effusions bilaterally, she did have thoracentesis, which did result in a pneumothorax. Patient was then in a rehab facility and discharged home on Monday which was 5 days ago. She was at a physician's office today where they saw that her pulse oxygenation after walking was 80%. She was then referred here. Patient states she feels generally well however she does have a slight cough as well as increased shortness of breath on exertion. She does live alone, does not use any oxygen at home. She is here with her son as well as her niece. PFSH <LINO Ponce - Last Filed: 08/26/22 14:08> [facility] Medical History (Updated 08/26/22 @ 14:[address] Enrike Pa, ) Chronic a-fib Chronic renal disease Dysphagia History of ectopic HTN (hypertension) Pulmonary hypertension Tobacco dependence Wrist fracture, left Home Medications ascorbic acid (vitamin C) 500 mg capsule 500 mg PO DAILY supp 04/19/22 [History Last Taken Unknown] acetaminophen 325 mg capsule (Tylenol) 650 mg PO Q6H PRN fever or pain #100 caps 08/22/22 [Rx Last Taken Unknown] atorvastatin 80 mg tablet 80 mg PO QHS cholesterol #30 tabs 08/22/22 [Rx Last Taken Unknown] cholecalciferol (vitamin D3) 25 mcg (1,000 unit) capsule 25 mcg PO DAILY supp #30 caps 08/22/22 [Rx Last Taken Unknown] lisinopril 5 mg tablet (Zestril) 5 mg PO DAILY bp #30 tabs 08/22/22 [Rx Last Taken Unknown] tramadol 50 mg tablet 25 mg PO Q6H PRN PRN Pain Score 1-10 7 days #20 tabs 08/22/22 [Rx Last Taken Unknown] verapamil 120 mg 24 hr capsule,extended release See Rx Instructions .Route .COMPLEX #90 caps 08/22/22 [Rx Last Taken Unknown] aspirin 325 mg tablet,delayed release 325 mg PO DAILY 08/26/22 [History Last Taken Unknown] Allergy/AdvReac Type Severity Reaction Status Date / Time diphenhydramine AdvReac Intermediate Other Verified 08/26/22 10:46 [From Benadryl] Surgical History H/O: hysterectomy (~1972) History of cataract surgery (~1989) Social History household members: none and other details: she has been for 20 years. housing: other details: She lives in a trailer number of children: 1 current occupational status: retired pets and animals: Yes (2 cats) pets and animals: cat(s) Smoking Status: Light Smoker (<10/day) Tobacco: How many years used: 72 counseling given: provider counseling alcohol intake: current alcohol intake frequency: 0-2 drinks per day details: She drinks a small juice glass of wine, when she has it, 4-5 days per week. substance use type: does not use what type of physical activity do you participate in: walking ROS <LINO Ponce - Last Filed: 08/26/22 14:08> [facility] Narrative Constitutional: Negative for fever, chills, weight loss, weakness Eyes: Negative for vision loss, vision change, double vision ENT: Negative for any sore throat, ear pain, congestion Cardiovascular: Negative for any chest pain, tightness, palpitations Respiratory: Negative for any sputum production, hemoptysis. Positive for cough, dyspnea, dyspnea on exertion, orthopnea Gastrointestinal: Negative for any abdominal pain, nausea, vomiting, diarrhea, constipation, blood in stool, blood in vomit : Negative for any urinary frequency, dysuria, retention, blood in urine Muscle skeletal: Negative for any muscle joint pain, stiffness, myalgias, arthralgias, neck pain, back pain Neurological: Negative for any headache, syncope, numbness or tingling, dizziness Skin: Negative for any rashes, lumps, itching, abrasions, lacerations Psychiatric: Negative for any depression, anxiety, stress, suicidal ideation, homicidal ideation Hematologic: Negative for any easy bruising, excessive bruising, easy bleeding Allergies: Negative for any eczema, hives, rash EXAM <LINO Ponce - Last Filed: 08/26/22 14:08> Physical Exam Narrative Exam Narrative: Vital signs reviewed. Patient at rest with a pulse ox on the earlobe shows a 95% oxygenation on room air. HEET: Head normocephalic atraumatic, TMs clear bilaterally. Posterior pharynx is clear, moist mucous membranes. Nares clear bilaterally. Neck: Supple with no lymphadenopathy or tenderness. No signs of meningismus, negative jolt sign. Cardiac: Regular rate and rhythm no murmurs gallops or rubs, equal peripheral pulses bilaterally. Respiratory: Lung sounds are diminished in the bases. No chest tenderness. Abdomen: Soft, nontender, nondistended. No abdominal bruit or pulsatile masses. No hepatosplenomegaly Extremities: +1 pitting edema bilateral, no signs of gross trauma or deformity. Active full range of motion of all extremities. Neuro: Cranial nerves II through XII intact, no focal neurological deficits. Skin: Clean dry and intact with no rash, purpura, petechiae, vesicles or pustules. Backs/flank: No CVA tenderness, no midline spinal tenderness, no deformity. Psych: Normal mood and affect. No SI, HI or acute psychosis. Const Vital Signs: 08/26/22 10:44 08/26/22 11:10 08/26/22 11:10 Temperature 96 F L Temperature Source Temporal Pulse Rate 99 86 Respiratory Rate 24 H 22 H Respiratory Effort Short of Breath Labored Respiratory Depth Normal Respiratory Pattern Normal Blood Pressure 169/80 H 165/74 H Blood Pressure Mean 109 104 Pulse Ox 99 94 Oxygen Delivery Method Room Air Room Air Room Air 08/26/22 11:37 08/26/22 11:37 08/26/22 11:40 Temperature Temperature Source Pulse Rate 103 H Respiratory Rate 17 16 Respiratory Effort Normal Respiratory Depth Respiratory Pattern Blood Pressure Blood Pressure Mean Pulse Ox 97 99 Oxygen Delivery Method Room Air Room Air 08/26/22 12:13 08/26/22 13:38 08/26/22 13:46 Temperature Temperature Source Pulse Rate 91 Respiratory Rate 22 H Respiratory Effort Respiratory Depth Respiratory Pattern Blood Pressure 141/70 H Blood Pressure Mean 93 Pulse Ox 100 83 93 Oxygen Delivery Method Room Air Room Air Room Air 08/26/22 14:23 Temperature 97.9 F Temperature Source Oral Pulse Rate 95 Respiratory Rate 20 H Respiratory Effort Respiratory Depth Respiratory Pattern Blood Pressure 132/61 H Blood Pressure Mean 84 Pulse Ox 96 Oxygen Delivery Method Room Air Positive cachectic General Appearance ED: cachectic Nutritional Appearance: cachectic <Dr. Tarcey Franks DO - Last Filed: 08/26/22 16:26> Physical Exam Const Vital Signs: 08/26/22 10:44 08/26/22 11:10 08/26/22 11:10 Temperature 96 F L Temperature Source Temporal Pulse Rate 99 86 Respiratory Rate 24 H 22 H Respiratory Effort Short of Breath Labored Respiratory Depth Normal Respiratory Pattern Normal Blood Pressure 169/80 H 165/74 H Blood Pressure Mean 109 104 Pulse Ox 99 94 Oxygen Delivery Method Room Air Room Air Room Air 08/26/22 11:37 08/26/22 11:37 08/26/22 11:40 Temperature Temperature Source Pulse Rate 103 H Respiratory Rate 17 16 Respiratory Effort Normal Respiratory Depth Respiratory Pattern Blood Pressure Blood Pressure Mean Pulse Ox 97 99 Oxygen Delivery Method Room Air Room Air 08/26/22 12:13 08/26/22 13:38 08/26/22 13:46 Temperature Temperature Source Pulse Rate 91 Respiratory Rate 22 H Respiratory Effort Respiratory Depth Respiratory Pattern Blood Pressure 141/70 H Blood Pressure Mean 93 Pulse Ox 100 83 93 Oxygen Delivery Method Room Air Room Air Room Air 08/26/22 14:23 Temperature 97.9 F Temperature Source Oral Pulse Rate 95 Respiratory Rate 20 H Respiratory Effort Respiratory Depth Respiratory Pattern Blood Pressure 132/61 H Blood Pressure Mean 84 Pulse Ox 96 Oxygen Delivery Method Room Air MDM <LINO Ponce - Last Filed: 08/26/22 14:08> [facility] Lab Data Labs: Laboratory Results - last 24 hr 08/26/22 08/26/22 08/26/22 11:05 11:05 11:05 WBC 9.1 RBC 4.89 Hgb 14.1 Hct 45.6 MCV 93.3 MCH 28.8 MCHC 30.9 L RDW Std Deviation 54.4 H RDW Coeff of Jenny 15.9 H Plt Count 623 H MPV 9.5 Immature Gran % (Auto) 0.200 Neut % (Auto) 75.7 H Lymph % (Auto) 14.7 L Dale % (Auto) 7.1 Eos % (Auto) 1.5 Baso % (Auto) 0.8 Absolute Neuts (auto) 6.9 Absolute Lymphs (auto) 1.33 Nucleated RBC % 0 D-Dimer Quant (PE/DVT) Sodium 138 Potassium 4.0 Chloride 103 Carbon Dioxide 27.0 Anion Gap 8 BUN 10 Creatinine 1.02 Estim Creat Clear Calc 24.83 Est GFR (MDRD) Af Amer 66 Est GFR (MDRD) Non-Af 55 L BUN/Creatinine Ratio 9.8 L Glucose 104 Calcium 9.3 Troponin I High Sens 11 B-Natriuretic Peptide 595.1 H 08/26/22 11:05 WBC RBC Hgb Hct MCV MCH MCHC RDW Std Deviation RDW Coeff of Jenny Plt Count MPV Immature Gran % (Auto) Neut % (Auto) Lymph % (Auto) Dale % (Auto) Eos % (Auto) Baso % (Auto) Absolute Neuts (auto) Absolute Lymphs (auto) Nucleated RBC % D-Dimer Quant (PE/DVT) 1.20 H* Sodium Potassium Chloride Carbon Dioxide Anion Gap BUN Creatinine Estim Creat Clear Calc Est GFR (MDRD) Af Amer Est GFR (MDRD) Non-Af BUN/Creatinine Ratio Glucose Calcium Troponin I High Sens B-Natriuretic Peptide Radiography Diagnostic Testing: Clinical Impression(s) from Imaging Studies Chest X-Ray 08/26/22 11:49 IMPRESSION: Moderate bilateral pleural effusions with overlying atelectasis which are increased in size when compared with the prior exam. Electronically Signed: Kwame Horton MD at 12:32 EDT Reading Location ID and State: [facility] / [place] Tel , Service support , Chest CTA 08/26/22 12:10 IMPRESSION: No pulmonary embolus. No thoracic aortic aneurysm or dissection. Large bilateral pleural effusions with overlying atelectasis. No pulmonary infiltrates. Cardiomegaly. Electronically Signed: Kwame Horton MD at 13:07 EDT , EKG Sinus rhythm with first-degree AV block: Attestation: I personally reviewed and interpreted this EKG as follows: Comments: Sinus rhythm with first-degree AV block, rate of 95 bpm, IL interval is elevated 232, QRS duration 110 ms, no acute ST elevation, no acute infarct noted. Differential Diagnosis Chest pain/SOB: pulmonary embolism, pneumothorax, pneumonia and CHF Treatment and Re-Evaluation :: All radiologic examinations were read, reviewed by the emergency department attending. From these reads, a plan of care will be put in place. Patient at rest appears nontoxic, vital signs are stable. Patient presents emerged department for worsening shortness of breath on exertion. Patient had a recorded 80% on room air after ambulating. Patient did receive a full work-up. Patient CBC was unremarkable, chemistries was unremarkable, patient's proBNP was elevated 595.1, this is increased, patient's proBNP on 08/12/2022 was 514.2. Patient did receive a two-view chest x-ray, this showed moderate bilateral pleural effusions with overlying atelectasis. This has increased in size since previous exam. The differential also included pulmonary embolus. Patient did receive a D-dimer which was elevated, CTA of the chest was completed. The CT of the chest did show large bilateral pleural effusions with overlying atelectasis. Negative for any pneumonia. Patient had no evidence of any pulmonary embolus. On room air, patient was 95%. Patient was then able to get up out of bed stand, while doing this, she immediately got out of breath, her pulse oxygenation went below to 83%. Patient was then put back in bed and placed on some oxygen. Secondary to the patient's exertional dyspnea, bilateral large pleural effusions, I do believe the patient should be admitted to the hospital. Patient will need a thoracentesis. Patient did receive 40 mg of IV Lasix here in the emergency department for diuresis. She is happy with the plan of care, I spoke with the patient's son as well as her niece, all questions answered. Patient be admitted to hospitalist service. <Dr. Tracey Franks, DO - Last Filed: 08/26/22 16:26> [facility] Narrative Medical decision making narrative: I have personally performed a face to face assessment of the patient and have reviewed the DEAN Note. I performed a substantive portion of the visit including all aspects of the following. My singletary findings include: History is patient is evaluated for hypoxia dyspnea on exertion. Patient had a doctor's appointment today and was found to be 80% in the office. Family notes that her fingers were blue which is abnormal for her. Patient does not recall her fingers being blue. Patient had a recent hospitalization for fall, subdural hematoma and had bilateral pleural effusions she underwent pleurocentesis. This is all [facility]. She had an iatrogenic pneumothorax as well. Patient went to rehab and has only been home for a week. Exam is frail-appearing. Slightly cyanotic fingers. Coarse breath sounds with diffuse crackles, diminished at the bases. Positive JVD. Bilateral pitting lower extremity edema. Regular rate and rhythm heart. Medical Decision Making Cardiopulmonary work-up obtained. Patient appears like she has likely emphysema compounded with a history of heart failure. Differential is broad including pulmonary emboli, CHF exacerbation, COPD exacerbation and just chronic respiratory failure. Her CBC is largely normal. She is not any fever and have a low suspicion for an infectious etiology. Clinically she does appear fluid overloaded. Patient is given a DuoNeb as well as Solu-Medrol due to her wheezing. She has improvement of her air movement with this. She is given IV Lasix. X-ray interpreted by myself as well as radiology does show bilateral pleural effusions. Her D-dimer is elevated and a CTA is obtained which does not show any PE but does show large bilateral pleural effusions with overlying atelectasis. Patient is ambulated emergency room and desats quickly to the low 80s with just standing. She does not have any oxygen at home. Patient be admitted for further management of her hypoxia likely secondary to her pleural effusions and fluid overload. Case is discussed with admitting physician, Dr. Pa. Other additions or changes: [None] Lab Data Attestation: I reviewed the patient's lab results. Labs: Laboratory Results - last 24 hr 08/26/22 08/26/22 08/26/22 11:05 11:05 11:05 WBC 9.1 RBC 4.89 Hgb 14.1 Hct 45.6 MCV 93.3 MCH 28.8 MCHC 30.9 L RDW Std Deviation 54.4 H RDW Coeff of Jenny 15.9 H Plt Count 623 H MPV 9.5 Immature Gran % (Auto) 0.200 Neut % (Auto) 75.7 H Lymph % (Auto) 14.7 L Dale % (Auto) 7.1 Eos % (Auto) 1.5 Baso % (Auto) 0.8 Absolute Neuts (auto) 6.9 Absolute Lymphs (auto) 1.33 Nucleated RBC % 0 D-Dimer Quant (PE/DVT) Sodium 138 Potassium 4.0 Chloride 103 Carbon Dioxide 27.0 Anion Gap 8 BUN 10 Creatinine 1.02 Estim Creat Clear Calc 24.83 Est GFR (MDRD) Af Amer 66 Est GFR (MDRD) Non-Af 55 L BUN/Creatinine Ratio 9.8 L Glucose 104 Calcium 9.3 Troponin I High Sens 11 B-Natriuretic Peptide 595.1 H 08/26/22 11:05 WBC RBC Hgb Hct MCV MCH MCHC RDW Std Deviation RDW Coeff of Jenny Plt Count MPV Immature Gran % (Auto) Neut % (Auto) Lymph % (Auto) Dale % (Auto) Eos % (Auto) Baso % (Auto) Absolute Neuts (auto) Absolute Lymphs (auto) Nucleated RBC % D-Dimer Quant (PE/DVT) 1.20 H* Sodium Potassium Chloride Carbon Dioxide Anion Gap BUN Creatinine Estim Creat Clear Calc Est GFR (MDRD) Af Amer Est GFR (MDRD) Non-Af BUN/Creatinine Ratio Glucose Calcium Troponin I High Sens B-Natriuretic Peptide Radiography Diagnostic Testing: Clinical Impression(s) from Imaging Studies Chest X-Ray 08/26/22 11:49 IMPRESSION: Moderate bilateral pleural effusions with overlying atelectasis which are increased in size when compared with the prior exam. Electronically Signed: Kwame Horton MD at 12:32 EDT Reading Location ID and State: [facility] / [place] Tel , Service support , Chest CTA 08/26/22 12:10 IMPRESSION: No pulmonary embolus. No thoracic aortic aneurysm or dissection. Large bilateral pleural effusions with overlying atelectasis. No pulmonary infiltrates. Cardiomegaly. Electronically Signed: Kwame Horton MD at 13:07 EDT , Discharge Plan Dx/Rx/DC Orders Clinical Impression: Bilateral pleural effusion, Hypoxia, Bilateral edema of lower extremity Disposition Disposition: Acute Care Hospital [facility] Discharge Date/Time: 08/26/22 15:17
[2022-08-26 11:30] LABS: Absolute Lymphocyte Count 1.33 X10^3/uL (0.83-4.51); Absolute Neutrophil Count 6.9 X10^3/uL (2.0-7.7); Basophil# 0.07 X10^3/uL; Basophil% 0.8 % (0-1); Eosinophil# 0.14 X10^3/uL; Eosinophils% 1.5 % (0-5); Hematocrit 45.6 % (37-47); Hemoglobin 14.1 g/dL (12.0-15.0); Lymphocyte # 1.33 X10^3/ul (0.83-4.51); Lymphocyte % 14.7 % (19-41); Mean Corp Hgb Conc 30.9 g/dL (32-36); Mean Corpuscular Hgb 28.8 pg (27.0-32.0); Mean Corpuscular Volume 93.3 fL (81-99); Mean Platelet Vol. 9.5 fl (6.2-12.0); Monocyte# 0.64 X10^3/uL; Monocyte% 7.1 % (0-10); NRBC Flagged by Analyzer 0 % (0-5); Neutrophil # 6.85 X10^3/uL (2.7-7.7); Neutrophil % 75.7 % (47-70); Platelet Count 623 K/mm3 (150-450); RBC Distribution Width CV 15.9 % (11.6-14.6); RBC Distribution Width SD 54.4 fl (35.1-43.9); Red Blood Count 4.89 M/mm3 (4.2-5.4); White Blood Count 9.1 K/mm3 (4.4-11.0)
[2022-08-26] MEDS: Ipratropium/Albuterol Sulfate 3 ML AMPUL.NEB INHALATION (11:35)
[2022-08-26] MEDS: Albuterol 2.5 MG/3 ML VIAL.NEB. INHALATION (11:35)
[2022-08-26 11:41] LABS: Anion Gap 8 (5-15); BUN 10 mg/dL (7-18); BUN/Creat Ratio 9.8 RATIO (10-20); Calcium,Total 9.3 mg/dL (8.5-10.1); Chloride 103 mmol/L (98-107); Creatinine, Serum 1.02 mg/dL (0.55-1.02); EST Glomerular Filtration Rate 55 mL/min (>60); Est Glom Filt Rate - Afr Amer 66 mL/min (>60); Estimated Creatinine Clearance 24.83 ml/min; Glucose 104 mg/dL (74-106); Sodium Level 138 mmol/L (136-145); Troponin-I HS 11 pg/mL (3.0-54.0)
--- NOTE | 2022-08-26 11:49 | RAD_ITS ---
STUDY: X-RAY CHEST REASON FOR EXAM: Female, 86 years old. Cough TECHNIQUE: Frontal and lateral views of the chest COMPARISON: 08/05/2022 FINDINGS: There are moderate bilateral pleural effusions with overlying atelectasis which are increased in size when compared with the prior exam. There are no pulmonary infiltrates. The heart is normal in size. The visualized osseous structures are within normal limits. RAD/Chest PA and Lateral IMPRESSION: Moderate bilateral pleural effusions with overlying atelectasis which are increased in size when compared with the prior exam. Electronically Signed: Kwame Horton MD at 12:32 EDT ,
[2022-08-26 12:06] LABS: BNP,B-Type NATRIURETIC PEPTIDE 595.1 pg/mL (0-100)
--- NOTE | 2022-08-26 12:10 | CT_ITS ---
STUDY: CTA CHEST WITH CONTRAST REASON FOR EXAM: Female, 86 years old. Dyspnea. Elevated d-dimer. RADIATION DOSAGE (If Supplied By Facility): CTDIvol = ( 3.14 ) mGy, DLP = ( 92.40 ) mGycm TECHNIQUE: Transaxial imaging was performed following intravenous administration of 75 ml of Isovue-370 contrast material. Coronal and sagittal reformatted images were created. 3D post processed images were created. Individualized dose optimization techniques were used for this CT. COMPARISON: None FINDINGS: LUNGS: There are no pulmonary infiltrates. There is dependent atelectasis noted in the lungs. PLEURAL SPACE: There are large bilateral pleural effusions with overlying atelectasis. There is no pneumothorax. MEDIASTINUM: The heart is enlarged. There is no pericardial effusion. There is no pneumomediastinum. There is no thoracic lymphadenopathy. VESSELS There is no pulmonary embolus. The pulmonary artery is normal in caliber. There is no thoracic aortic aneurysm or dissection. UPPER ABDOMEN: Images through the upper abdomen demonstrate no significant abnormality. BONES: There are no destructive osseous lesions. SOFT TISSUES: The visualized soft tissues are unremarkable. CT/CTA Chest W/WO Contrast IMPRESSION: No pulmonary embolus. No thoracic aortic aneurysm or dissection. Large bilateral pleural effusions with overlying atelectasis. No pulmonary infiltrates. Cardiomegaly. Electronically Signed: Kwame Horton MD at 13:07 EDT ,
[2022-08-26] MEDS: Furosemide 40 MG/4 ML Vial IV ×2 (14:22→17:11)
--- NOTE | 2022-08-26 14:30 | PCM.HP.STD ---
HPI - General General Date of Service: 08/26/22 Chief Complaint: pleural effusion HPI Narrative BEN SALAMANCA, is a 86 F who presents with shortness of breath. Patient was admitted to rehab on the and discharged on 22 August. Prior to that, patient had a hospitalization at [facility] where she developed a subdural hematoma, left wrist fracture. While she was there, according to the records from Dr. Gerardo she that had a thoracentesis that resulted in a pneumothorax and patient did require chest tube. Patient states at home that she just walks a very short distance about 5 feet and gets short of breath. Patient was brought to the hospital and was found to have elevated D-dimer but was found to have bilateral pleural effusions on CAT scan, no PE. They attempted a walker but patient upon standing dropped down to 80% range and the hospital service was contacted for admission. [facility] Medical History (Updated 08/26/22 @ 14:[address] Enrike Pa, ) Chronic a-fib Chronic renal disease Dysphagia History of ectopic HTN (hypertension) Pulmonary hypertension Tobacco dependence Wrist fracture, left Home Medications ascorbic acid (vitamin C) 500 mg capsule 500 mg PO DAILY supp 04/19/22 [History Last Taken Unknown] acetaminophen 325 mg capsule (Tylenol) 650 mg PO Q6H PRN fever or pain #100 caps 08/22/22 [Rx Last Taken Unknown] atorvastatin 80 mg tablet 80 mg PO QHS cholesterol #30 tabs 08/22/22 [Rx Last Taken Unknown] cholecalciferol (vitamin D3) 25 mcg (1,000 unit) capsule 25 mcg PO DAILY supp #30 caps 08/22/22 [Rx Last Taken Unknown] lisinopril 5 mg tablet (Zestril) 5 mg PO DAILY bp #30 tabs 08/22/22 [Rx Last Taken Unknown] tramadol 50 mg tablet 25 mg PO Q6H PRN PRN Pain Score 1-10 7 days #20 tabs 08/22/22 [Rx Last Taken Unknown] verapamil 120 mg 24 hr capsule,extended release See Rx Instructions .Route .COMPLEX #90 caps 08/22/22 [Rx Last Taken Unknown] aspirin 325 mg tablet,delayed release 325 mg PO DAILY 08/26/22 [History Last Taken Unknown] Allergy/AdvReac Type Severity Reaction Status Date / Time diphenhydramine AdvReac Intermediate Other Verified 08/26/22 10:46 [From [facility]] Surgical History H/O: hysterectomy (~1972) History of cataract surgery (~1989) Social History household members: none and other details: she has been for 20 years. housing: other details: She lives in a trailer number of children: 1 current occupational status: retired pets and animals: Yes (2 cats) pets and animals: cat(s) Smoking Status: Light Smoker (<10/day) Tobacco: How many years used: 72 counseling given: provider counseling alcohol intake: current alcohol intake frequency: 0-2 drinks per day details: She drinks a small juice glass of wine, when she has it, 4-5 days per week. substance use type: does not use what type of physical activity do you participate in: walking ROS YADIRA Ledezma Has lost weight. Does not eat well. Has trouble swallowing certain foods, such as meat as he feels it gets stuck in her esophagus. Does get chest pressure when she does get short of breath. No fever or chills. All review of systems were negative except as mentioned above in the history of present illness and the other review of systems. Vital Signs Vital Signs Vital Signs: 08/26/22 10:44 08/26/22 11:10 08/26/22 11:10 Temperature 35.5 C L Temperature Source Temporal Pulse Rate 99 86 Respiratory Rate 24 H 22 H Respiratory Effort Short of Breath Labored Respiratory Depth Normal Respiratory Pattern Normal Blood Pressure 169/80 H 165/74 H Blood Pressure Mean 109 104 Pulse Ox 99 94 Oxygen Delivery Method Room Air Room Air Room Air 08/26/22 11:37 08/26/22 11:37 08/26/22 11:40 Temperature Temperature Source Pulse Rate 103 H Respiratory Rate 17 16 Respiratory Effort Normal Respiratory Depth Respiratory Pattern Blood Pressure Blood Pressure Mean Pulse Ox 97 99 Oxygen Delivery Method Room Air Room Air 08/26/22 12:13 08/26/22 13:38 08/26/22 13:46 Temperature Temperature Source Pulse Rate 91 Respiratory Rate 83 H 22 H Respiratory Effort Respiratory Depth Respiratory Pattern Blood Pressure 141/70 H Blood Pressure Mean 93 Pulse Ox 100 93 Oxygen Delivery Method Room Air Room Air Room Air 08/26/22 14:23 Temperature 36.6 C Temperature Source Oral Pulse Rate 95 Respiratory Rate 20 H Respiratory Effort Respiratory Depth Respiratory Pattern Blood Pressure 132/61 H Blood Pressure Mean 84 Pulse Ox 96 Oxygen Delivery Method Room Air Weight Weight: 39.735 kg Body Mass Index (BMI) 17.1 Physical Exam Const alert and no apparent distress Constitutional Narrative: Cachectic. Temporal wasting. General Appearance: cooperative HEENT normocephalic and head/scalp atraumatic Eyes EOMs intact bilaterally Eyes Narrative: No icterus Neck no lymphadenopathy Neck Narrative: Positive JVD Resp Resp Narrative: Dullness percussion in the bases bilaterally. Clear in the upper winkler. Cardio regular rate, regular rhythm, S1 normal heart sound and S2 normal heart sound GI normal to inspection, nondistended, normoactive bowel sounds, soft to palpation, non-tender and non-distended Extremity Extremity Narrative: Nonpitting lower extremity edema Neuro oriented x3 Sensorium / Orientation: awake and alert Psych affect normal Results Lab / Micro Data Attestation: I reviewed the patient's lab results. Lab results narrative: CTA of the chest reviewed and showed large bilateral pleural effusions Result Diagrams: 08/26/22 11:05 08/26/22 11:05 Labs: Laboratory Results - last 24 hr 08/26/22 11:05: WBC 9.1, RBC 4.89, Hgb 14.1, Hct 45.6, MCV 93.3, MCH 28.8, MCHC 30.9 L, RDW Std Deviation 54.4 H, RDW Coeff of Jenny 15.9 H, Plt Count 623 H, MPV 9.5, Immature Gran % (Auto) 0.200, Neut % (Auto) 75.7 H, Lymph % (Auto) 14.7 L, [place]eller % (Auto) 7.1, Eos % (Auto) 1.5, Baso % (Auto) 0.8, Absolute Neuts (auto) 6.9, Absolute Lymphs (auto) 1.33, Nucleated RBC % 0 08/26/22 11:05: Sodium 138, Potassium 4.0, Chloride 103, Carbon Dioxide 27.0, Anion Gap 8, BUN 10, Creatinine 1.02, Estim Creat Clear Calc 24.83, Est GFR (MDRD) Af Amer 66, Est GFR (MDRD) Non-Af 55 L, BUN/Creatinine Ratio 9.8 L, Glucose 104, Calcium 9.3, Troponin I High Sens 11 08/26/22 11:05: B-Natriuretic Peptide 595.1 H 08/26/22 11:05: D-Dimer Quant (PE/DVT) 1.20 H* Micro: Microbiology 08/26/22 11:45 Nasal Secretion SARS-CoV-2 & FLU Antigen (Rapid) - Final EKG Initial EKG: Attestation: I personally reviewed and interpreted this EKG as follows: Prior EKG tracings: available for review EKG Rhythm Intrepretation: Sinus Rhythm (First-degree AV block.) Radiology Impression Chest X-Ray 08/26/22 11:49 IMPRESSION: Moderate bilateral pleural effusions with overlying atelectasis which are increased in size when compared with the prior exam. Electronically Signed: Kwame Horton MD at 12:32 EDT , Chest CTA 08/26/22 12:10 IMPRESSION: No pulmonary embolus. No thoracic aortic aneurysm or dissection. Large bilateral pleural effusions with overlying atelectasis. No pulmonary infiltrates. Cardiomegaly. Electronically Signed: Kwame Horton MD at 13:07 EDT , Assessment & Plan Assessment/Plan (1) (HFpEF) heart failure with preserved ejection fraction: PLAN: EF of 55% 2D echocardiogram on May 16 of this year. Continue with lisinopril Continue with IV furosemide Recheck echocardiogram Fluid restrict Daily weights (2) Pleural effusion: PLAN: Likely transudative due to CHF Patient did have a thoracentesis performed at [facility] where she developed a pneumothorax. Patient is currently stable so do not feel that repeat thoracentesis is necessary at this time. (3) Subdural hematoma: PLAN: Occurred last month. Patient was transferred to [facility]. We will request records from there. (4) Wrist fracture, left: PLAN: Has a cast currently on her left wrist. Request records from [facility]. Patient will require orthopedic follow-up. (5) Dysphagia: PLAN: Chronic Will have speech therapy evaluate her. (6) Severe protein-calorie malnutrition: PLAN: Start Ensure clear. Patient stated that she cannot tolerate the regular Ensure due to GI discomfort. Consult nutrition PLAN: Plan Chronic conditions Hypertension: Continue with lisinopril Pulmonary artery hypertension: Noted on echocardiogram. Unclear which type. Patient may benefit from a polysomnogram as outpatient. VTE prophylaxis: SCDs given patient's recent subdural hematoma CODE STATUS: Addressed with the patient. Patient wished to be DNR Comfort Care arrest no intubation. Case discussed with the patient's son at bedside. Charges/Coding Visit Charges Inpatient E&M: 78512 Init Hosp L3
--- NOTE | 2022-08-26 15:35 | CASEMGMT ---
HOANG BRADFORD Assessment: Face to Face with pt for initial transition planning/care coordination assessment. RN SUZETTE introduced self and role at [facility], pt voices understanding and consents to assessment. Pt is A/O x4 and answers all questions appropriately at this time. Pt lying in bed with son at bedside. Pt agreeable to assessment with son in room. Care providers, pharmacy, and demographics verified/updated. Admitting Dx: pleural effusions PCP:Gissell Specialists:Pt denies. Preferred Pharmacy: [facility] Insurance: [facility] Prescription Benefit: yes LNOK: Chata Cruz, niece; Mike Lombardo, son Living Arrangements: Pt lives alone in a mobile home with 3 steps to enter with a rail on both sides. Pt son is staying with patient until she is more independent. He has been staying with pt since dc from Rehab unit on 08/22. Pt has nieces who also live in the mobile home park. Transportation: Pt does not drive. Niece provides transportation. DME/HHC/SNF: Pt has a BP monitor, cane and shower chair. Pt is active with [facility] and denies SNF stays. Pt states no concerns with going home at time of dc. Pt son to continue staying with patient and she would like the [facility] to continue. States she is receiving SN, PT, OT and ST. Update via careport to [facility] to make aware of admission and plan for resumption. Pt states no further concerns/needs. CM to follow. Advised pt to ask CM if any further question/concerns/needs arise, voices understanding. Pt Goal: Home with [facility] Plan: Home with HHC and son assistance.
[2022-08-26] MEDS: Ensure Clear 120 ML Liquid PO (17:11)
[2022-08-26 17:17] LABS: Troponin-I HS 10 pg/mL (3.0-54.0)
[2022-08-26 19:52] LABS: Troponin-I HS 11 pg/mL (3.0-54.0)
[2022-08-26] MEDS: Acetaminophen 325 MG Tablet 650 MG PO (21:42)
[2022-08-26] MEDS: Atorvastatin Calcium 80 MG Tablet PO (21:43)
[2022-08-26 23:17] LABS: Troponin-I HS 10 pg/mL (3.0-54.0)
[2022-08-27] VITALS (12 sets, daily range): BP systolic 111–147; BP diastolic 59–87; PULSE 70–124; RESP 18–20; TEMP 36.4–37.2; O2SAT 85–99; BMI 16.3
--- NOTE | 2022-08-27 01:58 | PCM.HOSP.N ---
Hospitalist Note Patient tachycardic, reviewed medications and has verapamil that was not restarted. Unable to discern a reason not to restart, thus will dose now.
--- NOTE | 2022-08-27 05:55 | ECHOD_ITS ---
Reason For Study: CHF Procedure This was a 2D Doppler, Color Flow transthoracic echocardiogram. Exam performed portable in patient room. Left Ventricle Mild concentric left ventricular hypertrophy. Moderate global left ventricular systolic dysfunction. The left ventricular ejection fraction is 35 %. At least stage II diastolic dysfunction. Right Ventricle Normal right ventricle. Atria The left atrium is mildly enlarged. Normal right atrium. Mitral Valve Mild mitral annular calcification. Mild diffuse mitral valve thickening. Moderate (2+) mitral valve insufficiency. Tricuspid Valve Normal pulmonary artery pressure. Moderate (2+) tricuspid valve insufficiency. Aortic Valve Aortic sclerosis, no stenosis. Mild-Moderate (1-2+) aortic valve insufficiency. Pulmonic Valve The pulmonic valve is not well visualized. Great Vessels Normal sized aortic root. Pericardium/Pleural No pericardial effusion. Moderate to large bilateral pleural effusions. MMode/2D Measurements & Calculations LVIDd: 3.2 cm IVSd: 1.2 cm Ao root diam: 2.6 cm LVIDs: 2.7 cm LVPWd: 1.2 cm RVDd: 3.2 cm FS: 14.7 % LAV(MOD-bp): 32.1 ml LVAd ap4: 18.6 cm2 LVAd ap2: 18.1 cm2 LAV(MOD-bp) Indexed: 24.5 ml/m2 LVLd ap4: 6.7 cm LVLd ap2: 6.7 cm LAV(MOD-sp2): 29.3 ml EDV(MOD-sp4): 44.9 ml EDV(MOD-sp2): 40.9 ml LAV(MOD-sp4): 36.3 ml EDV(sp4-el): 43.8 ml EDV(sp2-el): 41.1 ml LVAs ap4: 14.0 cm2 LVAs ap2: 11.7 cm2 LVLs ap4: 6.0 cm LVLs ap2: 6.3 cm ESV(MOD-sp4): 28.0 ml ESV(MOD-sp2): 18.4 ml ESV(sp4-el): 27.8 ml ESV(sp2-el): 18.5 ml EF(MOD-sp4): 37.8 % EF(MOD-sp2): 54.9 % EF(sp4-el): 36.5 % SV(MOD-sp4): 17.0 ml SV(MOD-sp2): 22.5 ml SV(sp4-el): 16.0 ml LA dimension(2D): 2.8 cm LA A4 area: 14.9 cm2 RA A4 area: 15.1 cm2 TAPSE_phl: 1.6 cm Doppler Measurements & Calculations MV E max vijay: 125.9 cm/sec Lat Peak E' Vijay: 7.6 cm/sec Med Peak E' Vijay: 5.5 cm/sec E/E' lat: 16.5 E/E' med: 22.9 Ao V2 max: 137.5 cm/sec AI max vijay: 375.7 cm/sec LV V1 max: 107.4 cm/sec Ao max P.7 mmHg AI max P.7 mmHg LV V1 max P.6 mmHg Ao V2 mean: 95.8 cm/sec AI dec slope: 205.4 cm/sec2 LV V1 mean P.2 mmHg Ao mean P.2 mmHg AI P1/2t: 535.6 msec LV V1 mean: 67.3 cm/sec Ao V2 VTI: 21.8 cm LV V1 VTI: 15.3 cm AV (velocity ratio): 0.70 PA V2 max: 76.2 cm/sec TR max vijay: 281.5 cm/sec TR max P.7 mmHg ECHO/Echo Complete Interpretation Summary Moderate global left ventricular systolic dysfunction. The left ventricular ejection fraction is 35 %. At least stage II diastolic dysfunction The left atrium is mildly enlarged. Moderate (2+) mitral valve insufficiency. Mild-Moderate (1-2+) aortic valve insufficiency. Moderate (2+) tricuspid valve insufficiency. Moderate to large bilateral pleural effusions. Ordering Physician: Enrike Pa Referring Physician: Deidre Borrero Performed By: Gloria Rivera RDCS
[2022-08-27] MEDS: Verapamil SR 240 MG Tablet 120 MG PO ×2 (06:38→13:56)
[2022-08-27 07:11] LABS: Anion Gap 6 (5-15); BUN 9 mg/dL (7-18); BUN/Creat Ratio 9.8 RATIO (10-20); Calcium,Total 8.6 mg/dL (8.5-10.1); Chloride 102 mmol/L (98-107); Cholesterol 115 mg/dL (200); Creatinine, Serum 0.92 mg/dL (0.55-1.02); EST Glomerular Filtration Rate 61 mL/min (>60); Est Glom Filt Rate - Afr Amer 74 mL/min (>60); Estimated Creatinine Clearance 26.12 ml/min; Glucose 88 mg/dL (74-106); High Density Lipoprotein 53 mg/dL; Potassium 3.8 mmol/L (3.5-5.1); Sodium Level 137 mmol/L (136-145); Triglycerides 67 mg/dL; Very Low Density Lipoprotein 13 mg/dL (5-40)
[2022-08-27] MEDS: Ensure Clear 120 ML Liquid PO ×3 (07:55→16:06)
[2022-08-27] MEDS: Aspirin E.C. 325 MG Tablet PO (07:56)
[2022-08-27] MEDS: Ascorbic Acid 500 MG Tablet PO (07:56)
[2022-08-27] MEDS: Cholecalciferol (VIT D3) 25 MCG TABLET (1,000 UNITS) PO (07:57)
--- NOTE | 2022-08-27 08:06 | PN.HOSP_ITS ---
Reason for Visit Reason for Visit: Diagnoses Unspecified severe protein-calorie malnutrition (08/26/22) Unspecified diastolic (congestive) heart failure (08/26/22) Pleural effusion, not elsewhere classified (08/26/22) Dysphagia, unspecified (08/26/22) Traumatic subdural hemorrhage with loss of consciousness status unknown, initial encounter (08/26/22) Fracture of unspecified carpal bone, left wrist, initial encounter for closed fracture (08/26/22) Subjective Subjective Follow-up for chronic fatigue associated with multiple comorbidities including chronic HFpEF, bilateral pleural effusion traumatic SDH with LOC in the past Objective Data Objective Data Vital Signs: Vital Signs Temp Pulse Resp BP Pulse Ox O2 Del Method O2 Flow Rate 98.9 F 120 H 20 H 120/87 H 94 Nasal Cannula 2 08/27/22 04:13 08/27/22 07:45 08/27/22 04:13 08/27/22 04:25 08/27/22 07:54 08/27/22 07:54 08/27/22 07:54 Oxygen Flow Rate (L/min) 2 Oxygen Delivery Method Nasal Cannula Weight: 83 lb 1.828 oz Body Mass Index (BMI) 16.3 Intake & Output: Intake and Output for Last 24 Hours 08/25/22 08/26/22 08/27/22 23:59 23:59 23:59 Intake Total 150 / 150 250 / 250 Output Total 450 / 450 Balance 150 / 150 -200 / -200 Lab / Micro Data Result Diagrams: 08/26/22 11:05 08/27/22 05:20 Labs: Laboratory Results - last 24 hr 08/26/22 11:05: WBC 9.1, RBC 4.89, Hgb 14.1, Hct 45.6, MCV 93.3, MCH 28.8, MCHC 30.9 L, RDW Std Deviation 54.4 H, RDW Coeff of Jenny 15.9 H, Plt Count 623 H, MPV 9.5, Immature Gran % (Auto) 0.200, Neut % (Auto) 75.7 H, Lymph % (Auto) 14.7 L, [place] % (Auto) 7.1, Eos % (Auto) 1.5, Baso % (Auto) 0.8, Absolute Neuts (auto) 6.9, Absolute Lymphs (auto) 1.33, Nucleated RBC % 0 08/26/22 11:05: Sodium 138, Potassium 4.0, Chloride 103, Carbon Dioxide 27.0, Anion Gap 8, BUN 10, Creatinine 1.02, Estim Creat Clear Calc 24.83, Est GFR (MDRD) Af Amer 66, Est GFR (MDRD) Non-Af 55 L, BUN/Creatinine Ratio 9.8 L, Glucose 104, Calcium 9.3, Troponin I High Sens 11 08/26/22 11:05: B-Natriuretic Peptide 595.1 H 08/26/22 11:05: D-Dimer Quant (PE/DVT) 1.20 H* 08/26/22 16:25: Troponin I High Sens 10 08/26/22 18:58: Troponin I High Sens 11 08/26/22 22:44: Troponin I High Sens 10 08/27/22 05:20: Sodium 137, Potassium 3.8, Chloride 102, Carbon Dioxide 29.0, Anion Gap 6, BUN 9, Creatinine 0.92, Estim Creat Clear Calc 26.12, Est GFR (MDRD) Af Amer 74, Est GFR (MDRD) Non-Af 61, BUN/Creatinine Ratio 9.8 L, Glucose 88, Calcium 8.6, Triglycerides 67, Cholesterol 115, LDL Cholesterol 49, VLDL Cholesterol 13, HDL Cholesterol 53 Micro: Microbiology 08/26/22 11:45 Nasal Secretion SARS-CoV-2 & FLU Antigen (Rapid) - Final Radiography Diagnostic Testing: Radiology Impression Chest X-Ray 08/26/22 11:49 IMPRESSION: Moderate bilateral pleural effusions with overlying atelectasis which are increased in size when compared with the prior exam. Chest CTA 08/26/22 12:10 IMPRESSION: No pulmonary embolus. No thoracic aortic aneurysm or dissection. Large bilateral pleural effusions with overlying atelectasis. No pulmonary infiltrates. Cardiomegaly. Electronically Signed: Kwame Horton MD at 13:07 EDT , Physical Exam Narrative Seen and examined. In the morning today, she had transient left-sided chest pain in the inf ramammary region lasted for 2 to 3 seconds. Twelve-lead EKG done. She is in A- fib with RVR with heart rate 120 to 130/min. Physical exam General: Alert, Oriented x3, Cooperative, BMI 16.2 kg/m?. HEENT: Atraumatic, PERRLA, EOMI, Normocephalic Oral: No Gingival or Mucosal Lesions/ Ulcerations Neck: Supple, No JVD, Negative Carotid Bruits Lungs: Air entry diminished in bilateral lung bases. Stony dullness more on right side than left side. Bilateral pleural effusion. Cardiovascular: Regular rate, Regular Rhythm, Normal S1, Normal S2, No murmurs Abdomen: Bowel Sounds Present, Soft, Non Tender, Non-Distended : No renal angle tenderness. No suprapubic tenderness. Extremities: No edema, Capillary Refill Less than 3 Seconds. ROM intact. Skin: No rashes, No breakdown Musculoskeletal: No Tenderness to Palpation of Joints or Extremities, moderate muscle atrophy of extremities and craniofacial muscles, loss of subcutaneous fat Neurological: Cranial nerves II-XII grossly intact, DTR 2+/4 and Symmetrical, Neuro grossly intact Psych/Mental Status: Flat affect. Const Constitutional Narrative: Cachectic. Temporal wasting. Eyes Eyes Narrative: No icterus Neck Neck Narrative: Positive JVD Resp Resp Narrative: Dullness percussion in the bases bilaterally. Clear in the upper winkler. Extremity Extremity Narrative: Nonpitting lower extremity edema Assessment & Plan Assessment/Plan (1) (HFpEF) heart failure with preserved ejection fraction: PLAN: 86-year-old female was admitted with primary complaint of shortness of breath at rest and exertional shortness of breath at 5 feet distance and hypoxia, pulse ox dropped to 80% on his standing. She was admitted to acute rehab on and discharged on August 22. Prior to that she was admitted in [facility] after fall on 08/05/2022 where she developed right subdural hematoma left wrist fracture, bilateral, large right and moderate left pleural effusion, had thoracocentesis that resulted in pneumothorax and patient required chest tube. As per Dr. Gerardo note, patient had right-sided chest tube to drain the pleural fluid which was serous and no malignant cells. EF of 55% 2D echocardiogram on May 16 of this year. Continue with lisinopril Continue with IV furosemide A-fib with RVR with atypical transient chest pain: Patient had transient left- sided inframammary region localized chest pain lasting for 2 to 3 seconds. Twelve-lead EKG shows A-fib with RVR. Patient on verapamil ER capsule 120 mg morning and 240 mg at night. I changed to verapamil 120 mg SR tablet, 2 tablets twice daily. Metoprolol 25 mg twice daily added (2) Pleural effusion: PLAN: Likely transudative due to CHF Chest CTA chest x-ray initially reviewed shows large bilateral pleural effusion. No pericardial effusion. No PE. No thoracic aortic aneurysm dissection. Pulmonary artery normal in caliber. No pneumothorax. Continue IV diuretic. Patient not in shortness of breath and does not require thoracocentesis. Patient had right-sided thoracocentesis and chest tube in [facility] and then developed pneumothorax after that. (3) Subdural hematoma: PLAN: Patient had subdural hematoma after a fall on 08/05/2022. CT head showed right SDH with no midline shift and right and left focal areas of subarachnoid hemorrhage. After that patient was transferred to trauma center at [facility]. (4) Wrist fracture, left: PLAN: Has a cast currently on her left wrist. Request records from [facility]. Patient will require orthopedic follow-up. (5) Dysphagia: PLAN: Chronic Will have speech therapy evaluate her. (6) Severe protein-calorie malnutrition: PLAN: Start Ensure clear. Patient stated that she cannot tolerate the regular Ensure due to GI discomfort. Consult nutrition PLAN: Plan Chronic conditions * Hypertension: Continue with lisinopril * Pulmonary artery hypertension: Noted on echocardiogram. Unclear which type. Patient may benefit from a polysomnogram as outpatient. VTE prophylaxis: SCDs given patient's recent subdural hematoma CODE STATUS: Addressed with the patient. Patient wished to be DNR Comfort Care arrest no intubation. Case discussed with the patient's son at bedside. Charges/Coding Visit Charges Inpatient E&M: 51872 Subs Hosp L2
[2022-08-27] MEDS: Furosemide 40 MG/4 ML Vial IV ×2 (10:37→17:14)
[2022-08-27] MEDS: Lisinopril 5 MG Tablet PO (10:37)
[2022-08-27] MEDS: 0.9% Saline Lock 10 ML Syringe IV ×3 (10:41→22:01)
--- NOTE | 2022-08-27 10:57 | NURSING ---
pt c/o heaviness in her chest, states it didn't last long. Dr Sarmiento in the room and she informed him about it.
--- NOTE | 2022-08-27 11:00 | EKG12_ITS ---
Test Reason : SOB Blood Pressure : / mmHG Vent. Rate : 095 BPM Atrial Rate : 095 BPM P-R Int : 232 ms QRS Dur : 110 ms QT Int : 358 ms P-R-T Axes : 000 -34 128 degrees QTc Int : 449 ms Sinus rhythm with 1st degree A-V block with Premature atrial complexes Left axis deviation Left ventricular hypertrophy with repolarization abnormality ( Herron product , Romhilt-Pena ) Inferior infarct , age undetermined Anteroseptal infarct , age undetermined Abnormal ECG Confirmed by BARNEY VICTORIA, HELADIO ([id number]), administrative hearing officer MARY FERNÁNDEZ ([id number]) on 08/29/2022 2:33:43 PM Referred By: REAGAN/CHERELLE Confirmed By:JUMA CORLEY MD
[2022-08-27] MEDS: Metoprolol Tartrate 25 MG Tablet PO ×2 (12:09→20:32)
[2022-08-27] MEDS: Verapamil SR 240 MG Tablet PO (20:21)
[2022-08-27] MEDS: Atorvastatin Calcium 80 MG Tablet PO (20:22)
[2022-08-27] MEDS: Menthol/Lanolin/Calamine/Znox 113 GM Tube 1 APPLIC TOPICAL (20:23)
[2022-08-28] VITALS (9 sets, daily range): BP systolic 98–152; BP diastolic 48–69; PULSE 62–70; RESP 16–24; TEMP 36.3–37; O2SAT 95–98; BMI 15.7
[2022-08-28 07:41] LABS: Absolute Lymphocyte Count 1.76 X10^3/uL (0.83-4.51); Absolute Neutrophil Count 4.8 X10^3/uL (2.0-7.7); Basophil# 0.03 X10^3/uL; Basophil% 0.4 % (0-1); Eosinophil# 0.23 X10^3/uL; Hematocrit 35.2 % (37-47); Hemoglobin 11.2 g/dL (12.0-15.0); Lymphocyte # 1.76 X10^3/ul (0.83-4.51); Mean Corp Hgb Conc 31.8 g/dL (32-36); Mean Corpuscular Hgb 29.1 pg (27.0-32.0); Mean Corpuscular Volume 91.4 fL (81-99); Mean Platelet Vol. 9.6 fl (6.2-12.0); Monocyte% 10.5 % (0-10); NRBC Flagged by Analyzer 0 % (0-5); Neutrophil # 4.81 X10^3/uL (2.7-7.7); Neutrophil % 62.8 % (47-70); Platelet Count 419 K/mm3 (150-450); RBC Distribution Width CV 15.9 % (11.6-14.6); RBC Distribution Width SD 51.8 fl (35.1-43.9); Red Blood Count 3.85 M/mm3 (4.2-5.4); White Blood Count 7.7 K/mm3 (4.4-11.0)
[2022-08-28 07:57] LABS: Anion Gap 6 (5-15); BUN 12 mg/dL (7-18); BUN/Creat Ratio 12.9 RATIO (10-20); Calcium,Total 8.5 mg/dL (8.5-10.1); Chloride 100 mmol/L (98-107); Creatinine, Serum 0.93 mg/dL (0.55-1.02); EST Glomerular Filtration Rate 61 mL/min (>60); Est Glom Filt Rate - Afr Amer 74 mL/min (>60); Estimated Creatinine Clearance 25.02 ml/min; Glucose 82 mg/dL (74-106); Phosphorus 3.2 mg/dL (2.5-4.9); Potassium 3.3 mmol/L (3.5-5.1); Sodium Level 136 mmol/L (136-145)
--- NOTE | 2022-08-28 08:06 | PCM.PN.HOSP ---
Reason for Visit Reason for Visit: Diagnoses Unspecified severe protein-calorie malnutrition (08/26/22) Unspecified diastolic (congestive) heart failure (08/26/22) Pleural effusion, not elsewhere classified (08/26/22) Dysphagia, unspecified (08/26/22) Traumatic subdural hemorrhage with loss of consciousness status unknown, initial encounter (08/26/22) Fracture of unspecified carpal bone, left wrist, initial encounter for closed fracture (08/26/22) Objective Data Objective Data Vital Signs: Vital Signs Temp Pulse Resp BP Pulse Ox O2 Del Method O2 Flow Rate 98.1 F 70 16 132/58 H 95 Room Air 2 08/28/22 02:59 08/28/22 05:11 08/28/22 02:59 08/28/22 05:11 08/28/22 02:59 08/28/22 02:59 08/27/22 10:33 Oxygen Flow Rate (L/min) 2 Oxygen Delivery Method Room Air Weight: 80 lb 7.5 oz Body Mass Index (BMI) 15.7 Intake & Output: Intake and Output for Last 24 Hours 08/26/22 08/27/22 08/28/22 23:59 23:59 23:59 Intake Total 150 / 150 250 / 325 225 / 225 Output Total 950 / 1550 850 / 850 Balance 150 / 150 -700 / -1225 -625 / -625 Lab / Micro Data Result Diagrams: 08/28/22 07:08 08/28/22 07:08 Labs: Laboratory Results - last 24 hr 08/28/22 07:08: WBC 7.7, RBC 3.85 L, Hgb 11.2 L, Hct 35.2 L, MCV 91.4, MCH 29.1, MCHC 31.8 L, RDW Std Deviation 51.8 H, RDW Coeff of Jenny 15.9 H, Plt Count 419, MPV 9.6, Immature Gran % (Auto) 0.300, Neut % (Auto) 62.8, Lymph % (Auto) 23.0, Haakon % (Auto) 10.5 H, Eos % (Auto) 3.0, Baso % (Auto) 0.4, Absolute Neuts (auto) 4.8, Absolute Lymphs (auto) 1.76, Nucleated RBC % 0 08/28/22 07:08: Sodium 136, Potassium 3.3 L, Chloride 100, Carbon Dioxide 30.0, Anion Gap 6, BUN 12, Creatinine 0.93, Estim Creat Clear Calc 25.02, Est GFR (MDRD) Af Amer 74, Est GFR (MDRD) Non-Af 61, BUN/Creatinine Ratio 12.9, Glucose 82, Calcium 8.5, Phosphorus 3.2, Magnesium 2.0 Micro: Microbiology 08/26/22 11:45 Nasal Secretion SARS-CoV-2 & FLU Antigen (Rapid) - Final Radiography Diagnostic Testing: Radiology Impression Echocardiogram 08/27/22 05:55 Interpretation Summary Moderate global left ventricular systolic dysfunction. The left ventricular ejection fraction is 35 %. At least stage II diastolic dysfunction The left atrium is mildly enlarged. Moderate (2+) mitral valve insufficiency. Mild-Moderate (1-2+) aortic valve insufficiency. Moderate (2+) tricuspid valve insufficiency. Moderate to large bilateral pleural effusions. Ordering Physician: Enrike Pa Referring Physician: Deidre Borrero Performed By: Gloria Rivera RDCS Physical Exam Narrative Seen and examined. No further chest pain. Twelve-lead EKG done yesterday 08/27 showed A-fib with RVR. No acute ST-T changes. Shortness of breath is much improved. Heart rate is controlled 70/min. Physical exam General: Alert, Oriented x3, Cooperative, BMI 16.2 kg/m?. HEENT: Atraumatic, PERRLA, EOMI, Normocephalic Oral: No Gingival or Mucosal Lesions/ Ulcerations Neck: Supple, No JVD, Negative Carotid Bruits Lungs: Air entry diminished in bilateral lung bases. Stony dullness more on right side than left side. Bilateral pleural effusion. Cardiovascular: Regular rate, Regular Rhythm, Normal S1, Normal S2, No murmurs Abdomen: Bowel Sounds Present, Soft, Non Tender, Non-Distended : No renal angle tenderness. No suprapubic tenderness. Extremities: No edema, Capillary Refill Less than 3 Seconds. ROM intact. Skin: No rashes, No breakdown Musculoskeletal: No Tenderness to Palpation of Joints or Extremities, moderate muscle atrophy of extremities and craniofacial muscles, loss of subcutaneous fat Neurological: Cranial nerves II-XII grossly intact, DTR 2+/4 and Symmetrical, Neuro grossly intact Psych/Mental Status: Flat affect. Assessment & Plan Assessment/Plan (1) (HFpEF) heart failure with preserved ejection fraction: PLAN: 86-year-old female was admitted with primary complaint of shortness of breath at rest and exertional shortness of breath at 5 feet distance and hypoxia, pulse ox dropped to 80% on his standing. She was admitted to acute rehab on and discharged on August 22. Prior to that she was admitted in [facility] after fall on 08/05/2022 where she developed right subdural hematoma left wrist fracture, bilateral, large right and moderate left pleural effusion, had thoracocentesis that resulted in pneumothorax and patient required chest tube. As per Dr. Gerardo note, patient had right-sided chest tube to drain the pleural fluid which was serous and no malignant cells. Acute on chronic HFpEF EF of 55% 2D echocardiogram on May 16 of this year. Continue with lisinopril Continue with IV furosemide, metoprolol, lisinopril, baby aspirin and atorvastatin. A-fib with RVR with atypical transient chest pain: Patient had transient left-sided inframammary region localized chest pain lasting for 2 to 3 seconds. Twelve-lead EKG shows A-fib with RVR. Patient on verapamil ER capsule 120 mg morning and 240 mg at night. I changed to verapamil 120 mg SR tablet, 2 tablets twice daily. Metoprolol 25 mg twice daily added 08/28: Heart rate is controlled. (2) Pleural effusion: PLAN: Likely transudative due to CHF Chest CTA chest x-ray initially reviewed shows large bilateral pleural effusion. No pericardial effusion. No PE. No thoracic aortic aneurysm dissection. Pulmonary artery normal in caliber. No pneumothorax. Continue IV diuretic. Patient not in shortness of breath and does not require thoracocentesis. Patient had right-sided thoracocentesis and chest tube in [facility] and then developed pneumothorax after that. 09/11 shortness of breath is much improved. Transition IV Lasix to oral from tomorrow a.m. (3) Subdural hematoma: PLAN: Patient had subdural hematoma after a fall on 08/05/2022. CT head showed right SDH with no midline shift and right and left focal areas of subarachnoid hemorrhage. After that patient was transferred to trauma center at [facility]. (4) Wrist fracture, left: PLAN: Has a cast currently on her left wrist. Request records from [facility]. Patient will require orthopedic follow-up. (5) Dysphagia: PLAN: Chronic Will have speech therapy evaluate her. (6) Severe protein-calorie malnutrition: PLAN: Start Ensure clear. Patient stated that she cannot tolerate the regular Ensure due to GI discomfort. Consult nutrition PLAN: Plan Chronic conditions Hypertension: Continue with lisinopril Pulmonary artery hypertension: Noted on echocardiogram. Unclear which type. Patient may benefit from a polysomnogram as outpatient. VTE prophylaxis: SCDs given patient's recent subdural hematoma CODE STATUS: Addressed with the patient. Patient wished to be DNR Comfort Care arrest no intubation. Case discussed with the patient's son at bedside. Charges/Coding Visit Charges Inpatient E&M: 92571 Subs Hosp L2
[2022-08-28] MEDS: Ensure Clear 120 ML Liquid PO (09:18)
[2022-08-28] MEDS: Lisinopril 5 MG Tablet PO (09:19)
[2022-08-28] MEDS: Aspirin E.C. 325 MG Tablet PO (09:19)
[2022-08-28] MEDS: Metoprolol Tartrate 25 MG Tablet PO ×2 (09:19→21:23)
[2022-08-28] MEDS: Ascorbic Acid 500 MG Tablet PO (09:19)
[2022-08-28] MEDS: Spironolactone 25 MG Tablet PO (09:19)
[2022-08-28] MEDS: Potassium Chloride Oral Tablet 20 MEQ 40 MEQ PO (09:19)
[2022-08-28] MEDS: Verapamil SR 240 MG Tablet PO ×2 (09:20→21:23)
[2022-08-28] MEDS: Cholecalciferol (VIT D3) 25 MCG TABLET (1,000 UNITS) PO (09:20)
[2022-08-28] MEDS: Furosemide 40 MG/4 ML Vial IV ×2 (09:20→17:06)
[2022-08-28] MEDS: 0.9% Saline Lock 10 ML Syringe IV ×2 (09:20→17:06)
[2022-08-28] MEDS: Menthol/Lanolin/Calamine/Znox 113 GM Tube 1 APPLIC TOPICAL ×2 (09:21→21:23)
[2022-08-28] MEDS: Atorvastatin Calcium 80 MG Tablet PO (21:23)
[2022-08-28] MEDS: Acetaminophen 325 MG Tablet 650 MG PO (21:31)
[2022-08-29] VITALS (7 sets, daily range): BP systolic 101–138; BP diastolic 58–85; PULSE 66–70; RESP 18–19; TEMP 36.4–36.5; O2SAT 81–98; BMI 15.7
[2022-08-29 06:26] LABS: Absolute Lymphocyte Count 1.47 X10^3/uL (0.83-4.51); Absolute Neutrophil Count 4.3 X10^3/uL (2.0-7.7); Basophil# 0.04 X10^3/uL; Basophil% 0.6 % (0-1); Eosinophil# 0.18 X10^3/uL; Eosinophils% 2.6 % (0-5); Hematocrit 37.2 % (37-47); Hemoglobin 11.4 g/dL (12.0-15.0); Lymphocyte # 1.47 X10^3/ul (0.83-4.51); Lymphocyte % 21.3 % (19-41); Mean Corp Hgb Conc 30.6 g/dL (32-36); Mean Corpuscular Hgb 28.3 pg (27.0-32.0); Mean Corpuscular Volume 92.3 fL (81-99); Mean Platelet Vol. 9.5 fl (6.2-12.0); Monocyte# 0.94 X10^3/uL; Monocyte% 13.6 % (0-10); NRBC Flagged by Analyzer 0 % (0-5); Neutrophil # 4.26 X10^3/uL (2.7-7.7); Neutrophil % 61.6 % (47-70); Platelet Count 406 K/mm3 (150-450); RBC Distribution Width CV 15.8 % (11.6-14.6); RBC Distribution Width SD 53.1 fl (35.1-43.9); Red Blood Count 4.03 M/mm3 (4.2-5.4); White Blood Count 6.9 K/mm3 (4.4-11.0)
[2022-08-29 07:06] LABS: Anion Gap 6 (5-15); BUN 16 mg/dL (7-18); BUN/Creat Ratio 16.8 RATIO (10-20); Calcium,Total 8.5 mg/dL (8.5-10.1); Chloride 103 mmol/L (98-107); Creatinine, Serum 0.96 mg/dL (0.55-1.02); EST Glomerular Filtration Rate 59 mL/min (>60); Est Glom Filt Rate - Afr Amer 71 mL/min (>60); Estimated Creatinine Clearance 24.24 ml/min; Glucose 93 mg/dL (74-106); Potassium 3.9 mmol/L (3.5-5.1); Sodium Level 141 mmol/L (136-145)
--- NOTE | 2022-08-29 07:45 | RAD_ITS ---
STUDY: X-RAY CHEST REASON FOR EXAM: Female, 86 years old. Diffusion TECHNIQUE: Frontal view of the chest COMPARISON: 08/26/2022 FINDINGS: There are small to moderate bilateral pleural effusions with overlying atelectasis which are slightly decreased in size when compared with the prior exam. There are no focal infiltrates. There is no pneumothorax. The heart is normal in size. The visualized osseous structures are within normal limits. RAD/Chest 1 View (Portable) IMPRESSION: Dohdi-[id number] bilateral pleural effusions with overlying atelectasis which are slightly decreased when compared with the prior exam. Electronically Signed: Kwame Horton MD at 8:37 EDT ,
[2022-08-29] MEDS: Ascorbic Acid 500 MG Tablet PO (08:20)
[2022-08-29] MEDS: Lisinopril 5 MG Tablet PO (08:20)
[2022-08-29] MEDS: Aspirin E.C. 325 MG Tablet PO (08:20)
[2022-08-29] MEDS: Metoprolol Tartrate 25 MG Tablet PO (08:20)
[2022-08-29] MEDS: Cholecalciferol (VIT D3) 25 MCG TABLET (1,000 UNITS) PO (08:20)
[2022-08-29] MEDS: Spironolactone 25 MG Tablet PO (08:22)
[2022-08-29] MEDS: Verapamil SR 240 MG Tablet PO (08:22)
[2022-08-29] MEDS: Menthol/Lanolin/Calamine/Znox 113 GM Tube 1 APPLIC TOPICAL (08:23)
[2022-08-29] MEDS: Furosemide 40 MG Tablet PO ×2 (08:24→16:42)
--- NOTE | 2022-08-29 13:24 | PCM.DC.SUM ---
Providers Date of Admission: 08/26/22 Date of Discharge: 08/29/22 Primary Care Physician: Dr. Deidre Borrero MD Reason For Visit: PLEURAL EFFUSIONS Diagnosis Discharge Diagnosis (1) (HFpEF) heart failure with preserved ejection fraction: Status: Acute Code(s): I50.30 - Unspecified diastolic (congestive) heart failure (2) Pleural effusion: Status: Acute Code(s): J90 - Pleural effusion, not elsewhere classified (3) Subdural hematoma: Status: Acute Code(s): S06.5XAA - Traumatic subdural hemorrhage with loss of consciousness status unknown, initial encounter (4) Wrist fracture, left: Status: Acute Code(s): S62.102A - Fracture of unspecified carpal bone, left wrist, initial encounter for closed fracture (5) Dysphagia: Status: Acute Code(s): R13.10 - Dysphagia, unspecified (6) Severe protein-calorie malnutrition: Status: Acute Code(s): E43 - Unspecified severe protein-calorie malnutrition Medications at Discharge Home Medications ascorbic acid (vitamin C) 500 mg capsule 500 mg PO DAILY supp 04/19/22 acetaminophen 325 mg capsule (Tylenol) 650 mg PO Q6H PRN fever or pain #100 caps 08/22/22 atorvastatin 80 mg tablet 80 mg PO QHS cholesterol #30 tabs 08/22/22 cholecalciferol (vitamin D3) 25 mcg (1,000 unit) capsule 25 mcg PO DAILY supp #30 caps 08/22/22 lisinopril 5 mg tablet (Zestril) 5 mg PO DAILY bp #30 tabs 08/22/22 tramadol 50 mg tablet 25 mg PO Q6H PRN PRN Pain Score 1-10 7 days #20 tabs 08/22/22 aspirin 325 mg tablet,delayed release 325 mg PO DAILY 08/26/22 carvedilol 12.5 mg tablet (Coreg) 12.5 mg PO BID #60 tabs 08/29/22 empagliflozin 10 mg tablet (Jardiance) 10 mg PO DAILY #30 tabs 08/29/22 furosemide 40 mg tablet 40 mg PO BIDLX #60 tabs 08/29/22 spironolactone 25 mg tablet 25 mg PO DAILY #30 tabs 08/29/22 Hospital Course Procedures 2-D Echocardiogram and - (CTA chest/chest x-ray) Summary of Care Provided Minutes Spent on Discharge: 37 Hospital Course: Mrs. Lombardo is an 86-year-old white female who presented to the emergency department at [facility] on 08/26/2022 with shortness of breath. She was recently admitted from rehab from August 12 through August 22. Prior to that she was hospitalized at [facility] after a trauma at which time she developed a subdural hematoma and a left wrist fracture. She was noted to have a pleural effusion there and a thoracentesis was performed which unfortunately resulted in pneumothorax. A chest tube was placed for that and removed prior to discharge. On presentation she reported at home she was walking just very short distances of about 5 feet and was getting very short of breath. She lives in a trailer which is about 65 feet in length and typically does not have this problem but does have to rest frequently prior to that recent admission. Upon presentation she was found to have an elevated D-dimer and bilateral pleural effusions on CTA of the chest. No PE was identified. They did attempt to ambulate her with a walker however upon standing she dropped down to 80% on room air and the hospital service was contacted for admission. She was admitted to the medical floor. After admission she was found to be tachycardic however her verapamil was not restarted and this was initiated. With her pleural effusions an echocardiogram was ordered and performed on 08/27/2022. Echocardiogram showed moderate global left ventricular systolic dysfunction with an EF of 35%, at least stage II diastolic dysfunction with left atrial enlargement that was mild and moderate mitral valve insufficiency. She had mild to moderate aortic valve insufficiency and moderate tricuspid valve insufficiency with a moderate to large bilateral pleural effusions. When compared to previous echocardiogram on 2022 her EF had dropped from 55 to 35%. Patient did not have any significant chest pain during her hospital course suggestive of cardiac issues and wall motion was normal however globally depressed. Given this cardiology was not contacted during her hospitalization. She was diuresed aggressively and a repeat chest x-ray was performed on the a.m. of 08/29/2022. Repeat chest x-ray showed significant improvement in her bilateral pleural effusions. I suspect these are likely related to her heart failure. With improvement, I did not pursue a thoracentesis at this time. On room air at rest her oxygen saturations were stable at 96% however with exertion her oxygen saturation dropped to 81% with exertion. She was placed on 2 L and with exertion her oxygen saturation improved to 92%. Given these findings, she was discharged home with supplemental oxygen to be utilized with exertion. I have instructed her to utilize this ongoing with exertion until instructed otherwise. She will be maintained on oral diuretics with Lasix 40 mg p.o. twice daily. Her potassium was stable without any supplementation at the time of discharge so we did not schedule any potassium for her. She was instructed to call her primary care physician for follow-up basic metabolic profile to be performed on 09/01/2022 to reassess her kidney function and potassium levels. She was also started on Aldactone, Jardiance, and her verapamil was transition to carvedilol 12.5 mg p.o. twice daily. Prescriptions for the above medications were written for and sent to the local pharmacy. She was also given information at discharge with regards to heart failure for diet and daily weighing. She was advised today to weigh herself daily in the morning at about the same time and call her primary care physician if she has more than a 3 pound weight gain. Follow-up appointments were made with both cardiology and pulmonology given the above. She will see cardiology on 09/01/2022, pulmonology on 09/06/2022 and her primary care physician on 09/07/2022. Heart rate was controlled at the time of discharge. I suspect her heart failure may be tachycardia mediated however will await cardiology input as an outpatient. She may need further invasive testing but I suspect they will keep her on goal-directed therapy and repeat an echocardiogram in 6 to 8 weeks depending on patient's goals of care. Patient was discharged home with supplemental oxygen during exertion on 08/29/2022 with home health care in stable condition. Discharge diagnoses: Acute hypoxia-resolving Bilateral pleural effusions-resolving [id number]-[id number] Recent pneumothorax status postthoracentesis Subdural bachmfuf-kyajss-fj acute issue Debility-improving Chronic atrial fibrillation History of dysphagia Hypertension PAH-who group 2/3 Left wrist fracture History of tobacco dependence-remote Physical Exam Narrative Patient states she is feeling overall much better and anxious to go home. Would like to go home today if possible. Is receptive to home health. Const alert, oriented x3 and no apparent distress; Negative for healthy appearing or well nourished Constitutional Narrative: Chronically ill and cachectic appearing, elderly, white female, sitting up on the edge of the bed with therapy services at the bedside, appears comfortable and nontoxic, no dyspnea with conversation, currently on room air General Appearance: cooperative, comfortable and well developed Orientation / Consciousness: awake, oriented to person, oriented to place and oriented to time Exam Limitations: no limitations Nutritional Appearance: cachectic HEENT normocephalic, head/scalp atraumatic and moist oral mucous membranes HEENT Narrative: Mild hearing loss, dentition is poor, Mallampati 1, no thrush Eyes PERRL, EOMs intact bilaterally and conjunctivae normal Eyes Narrative: No scleral icterus Neck no lymphadenopathy, supple, no JVD and no carotid bruits Neck Narrative: Trachea midline Resp normal respiratory effort, no retractions, no use of accessory muscles and clear to auscultation bilaterally Resp Narrative: Diminished at bases bilaterally left greater than right Auscultation: Negative for rales, rhonchi or wheezes Cardio regular rate, S1 normal heart sound, S2 normal heart sound, no murmurs, no rub, no gallops, no clicks and no JVD Cardio Narrative: Irregular rhythm with regular rate GI normal to inspection, nondistended, normoactive bowel sounds and soft to palpation Extremity no clubbing, cyanosis or edema Skin no rashes or lesions noted, no wounds, skin turgor normal and no jaundice Neuro oriented x3, CN's II-XII intact bilaterally, moves all extremities, no focal motor deficits and no sensory deficits noted Speech: speech normal Psych affect normal Psych Narrative: Very pleasant, appropriately interactive Weight / BMI Weight Weight: 36.5 kg Body Mass Index (BMI) 15.7 ABG / Lab / Microbiology Data Result Diagrams: 08/29/22 05:59 08/29/22 05:59 Laboratory: Laboratory Results - last 24 hr 08/29/22 05:59: WBC 6.9, RBC 4.03 L, Hgb 11.4 L, Hct 37.2, MCV 92.3, MCH 28.3, MCHC 30.6 L, RDW Std Deviation 53.1 H, RDW Coeff of Jenny 15.8 H, Plt Count 406, MPV 9.5, Immature Gran % (Auto) 0.300, Neut % (Auto) 61.6, Lymph % (Auto) 21.3, Dubois % (Auto) 13.6 H, Eos % (Auto) 2.6, Baso % (Auto) 0.6, Absolute Neuts (auto) 4.3, Absolute Lymphs (auto) 1.47, Nucleated RBC % 0 08/29/22 05:59: Sodium 141, Potassium 3.9, Chloride 103, Carbon Dioxide 32.0, Anion Gap 6, BUN 16, Creatinine 0.96, Estim Creat Clear Calc 24.24, Est GFR (MDRD) Af Amer 71, Est GFR (MDRD) Non-Af 59 L, BUN/Creatinine Ratio 16.8, Glucose 93, Calcium 8.5 Microbiology: Microbiology 08/26/22 11:45 Nasal Secretion SARS-CoV-2 & FLU Antigen (Rapid) - Final Radiography Diagnostic Testing: Radiology Impression Chest X-Ray 08/29/22 07:45 IMPRESSION: Yakdw-om-fpxqvshy bilateral pleural effusions with overlying atelectasis which are slightly decreased when compared with the prior exam. Electronically Signed: Kwame Horton MD at 8:37 EDT , D/C Instructions Discharge Diet: Low fat / Low cholesterol, 8 Cup Fluid Restriction and 2000 mg Sodium Diet Discharge Activity: Return to Normal Activity Meaningful Use Info Meaningful Use Diagnoses (Choose all that apply): CHF CHF YAHIR/ARB ordered at discharge?: Yes Documented LVEF (%): 35 Discharge Plan Admission Admit Date/Time: 08/26/22 14:25 Primary Reason for Your Visit: Shortness of breath/pleural effusion Attending Provider: Magaly Mcdonald Primary Care Provider: Deidre Borrero Consulting Providers: Enrike Pa ; Jose Sarmiento Instructions Patient Instructions: Heart Failure Meds, What Is Heart Failure, Heart Failure Flare Up Signs, Heart Failure: Tracking Your Weight, Heart Failure Make Changes Diet, Heart Failure Dc Additional Instructions / Restrictions: 1. Please call your primary care physician tomorrow and get lab to be done on 09/01/2022. Please ask that a basic metabolic profile be done at that time to follow-up on your kidney function and your potassium levels with the newly added Lasix and Aldactone as these medications can affect kidney function and potassium levels. 2. Please return to the emergency department or call your primary care physician's office if your heart rate is consistently greater than 110 3. Please wear your oxygen when you are up and around at 2 L. You did not require any oxygen while resting. 4. You were prescribed a medication called Jardiance. This is typically used for diabetes however we also use it for heart failure and this is why we prescribed it to you. 5. Please weigh yourself daily in the morning and if you gain more than 3 pounds in a 24-hour period please call your primary care physician and notify them. Discharge Orders/Prescriptions Prescriptions: New furosemide 40 mg Tablet 40 mg PO BIDLX Qty: 60 1RF spironolactone 25 mg Tablet 25 mg PO DAILY Qty: 30 0RF carvedilol [Coreg] 12.5 mg tablet 12.5 mg PO BID Qty: 60 2RF Rx Instructions: must administer with a meal/food Jardiance 10 mg tablet 10 mg PO DAILY Qty: 30 0RF Continued ascorbic acid (vitamin C) 500 mg capsule 500 mg PO DAILY tramadol 50 mg Tablet 25 mg PO Q6H PRN PRN (Reason: Pain Score 1-10) 7 Days Qty: 20 0RF acetaminophen [Tylenol] 325 mg capsule 650 mg PO Q6H PRN (Reason: fever or pain) Qty: 100 0RF atorvastatin 80 mg tablet 80 mg PO QHS Qty: 30 0RF lisinopril [Zestril] 5 mg tablet 5 mg PO DAILY Qty: 30 0RF cholecalciferol (vitamin D3) 25 mcg (1,000 unit) capsule 25 mcg PO DAILY Qty: 30 0RF aspirin 325 mg Tablet,Delayed Release (Dr/Ec) 325 mg PO DAILY Discontinued verapamil 120 mg capsule,ext rel. pellets 24 hr See Rx Instructions .ROUTE .COMPLEX Qty: 90 0RF Rx Instructions: take one capsule at 10 AM daily and 2 capsules at bedtime. Referrals / Follow Up: Farhad Gonzalez MD [Med Staff - Active Staff] - 09/01/22 9:30 am Solis Sosa DO [Med Staff - Active Staff] - 09/07/22 11:15 am Deidre Borrero MD [Primary Care Provider] - 09/06/22 10:50 am Disposition Disposition (needs filled in before D/C Order can be placed): Home Health Service Charges/Coding Visit Charges Inpatient E&M: 15237 Disch Hosp >30min
--- NOTE | 2022-08-29 14:35 | CASEMGMT ---
DC summary and updated order [facility] and sent to [facility] at this time. Pt qualifies for home oxygen. HOANG CM into pt room. Provided pt with a verbal local in network DME list, pt chose [facility]. Discussed homegoing oxygen instructions, pt verbalizes understanding to call oxygen company when home. Pt states she is able to obtain a pox. Pt denies further needs at this time. Referral sent to [facility] for oxygen via [facility].
[2022-08-29] MEDS: Acetaminophen 325 MG Tablet 650 MG PO (16:41)
[2022-08-29] MEDS: Ensure Clear 120 ML Liquid PO (16:41)
--- NOTE | 2022-08-29 17:53 | NURSING ---
Mike on the phone with Dr. Mcdonald regarding patients discharge. I reviewed and answered questions about discharge. IV removed. Form Worker assisting with dressing patient and oxygen reviewed.
== END 2022-08-29 18:17 | disposition home health service (06) | DRG 291 ==
LOC: ED 14:08 → MS3 14:33
PROVIDERS: Internal Medicine; Nurse Practitioner; Emergency Provider Emergency Medicine; PCP Family Medicine; Visit Provider Internal Medicine
DX: I13.0 Hypertensive heart and chronic kidney disease with heart failure and stage 1 through stage 4 chronic kidney disease, or unspecified chronic kidney disease (principal); I50.33 Acute on chronic diastolic (congestive) heart failure; E43 Unspecified severe protein-calorie malnutrition; J91.8 Pleural effusion in other conditions classified elsewhere; I48.20 Chronic atrial fibrillation, unspecified; Z68.1 Body mass index [BMI] 19.9 or less, adult; N18.9 Chronic kidney disease, unspecified; I08.3 Combined rheumatic disorders of mitral, aortic and tricuspid valves; F17.210 Nicotine dependence, cigarettes, uncomplicated; E87.6 Hypokalemia; S06.5XAD Traumatic subdural hemorrhage with loss of consciousness status unknown, subsequent encounter; S62.102D Fracture of unspecified carpal bone, left wrist, subsequent encounter for fracture with routine healing; Z79.82 Long term (current) use of aspirin; R13.10 Dysphagia, unspecified; Z79.899 Other long term (current) drug therapy; X58.XXXD Exposure to other specified factors, subsequent encounter
CPT/HCPCS: 36415; 71045; 71046; 71275; 80048; 80061; 83735; 83880; 84100; 84484; 85025; 85379; 87428; 92507; 92526; 92610; 93005; 93306; 94640; 94668; 97116; 97161; 97165; 97530; 97535; 97802; 99252; 99285; Q9967; A4216; G0463; J1940

== ENCOUNTER → 2022-10-13 | Outpatient (CLI) | payer MEDICARE, MEDICAID, SELFPAY ==
--- NOTE | 2022-10-13 08:53 | BD_ITS ---
STUDY: DUAL ENERGY X-RAY ABSORPTIOMETRY / DXA REASON FOR EXAM: Female, 87 years old. 627.8Menopausal postmenopausal BONE DENSITY REASON FOR EXAM TECHNIQUE: Bone Mineral Density (BMD) measurements of lumbar spine and bilateral hips were obtained. COMPARISON: None. FINDINGS: Lumbar Spine (L1-L4): g/cm2 (0.471) / T-score (-5.2) / Z-score (-2.4) Findings are suggestive of osteoporosis with a high fracture risk. Left Femur Total: g/cm2 (0.349) / T-score (-4.9) / Z-score (-2.5) Left Femoral Neck: g/cm2 (0.311) / T-score (-4.8) / Z-score (-2.3) Right Femur Total: g/cm2 (0.303) / T-score (-5.2) / Z-score (-2.9) Right Femoral Neck: g/cm2 (0.311) / T-score (-4.9) / Z-score (-2.3) BD/Dexa Bone Density Study IMPRESSION: The patient is considered osteoporotic as outlined below according to World [employer] Organization (WHO) criteria with a high fracture risk. Reference Information: The T-score is the number of standard deviations above or below the standard which is normal for young adults at their peak bone mineral density. The World Health Organization (WHO) interprets the T-scores as follows: Above -1 Normal bone density Between -1 and -2.5 Osteopenia Equal to / or below -2.5 Osteoporosis As a practical clinical guideline, osteopenia may be graded as follows: Mild -1 through -1.5 Moderate -1.6 through -2.0 Severe -2.1 through -2.4 The Z-score is the number of standard deviations above or below age-matched controls. A Z-score of less than -1.5 would be considered abnormal. References: 1. NIH Osteoporosis and Related Bone Diseases www osteo.org 2. International Society for Clinical Densitometry www iscd.org 3. National Osteoporosis Foundation www nof.org Electronically Signed: Babak Lorenzana MD at 15:21 EDT ,
== END | disposition home or self-care (01) ==
PROVIDERS: PCP Family Medicine; Referring Provider Student in an Organized Health Care Education/Training Program; Visit Provider Student in an Organized Health Care Education/Training Program
DX: M81.0 Age-related osteoporosis without current pathological fracture (principal); S52.602D Unspecified fracture of lower end of left ulna, subsequent encounter for closed fracture with routine healing; S52.551D Other extraarticular fracture of lower end of right radius, subsequent encounter for closed fracture with routine healing; X58.XXXD Exposure to other specified factors, subsequent encounter; Z78.0 Asymptomatic menopausal state
CPT/HCPCS: 77080

== ENCOUNTER → 2022-11-01 | Outpatient (CLI) | payer MEDICARE, MEDICAID, SELFPAY ==
--- NOTE | 2022-11-01 11:40 | RAD_ITS ---
STUDY: X-RAY - LUMBAR SPINE REASON FOR EXAM: Female, 87 years old. BACK PAIN TECHNIQUE: 5 view(s) of the lumbar spine were obtained including oblique views.. COMPARISON: None FINDINGS: Normal lumbar lordosis. There is a levoscoliosis of the lumbar spine. There is a normal alignment of the vertebrae. There is generalized demineralization of the vertebral bodies. Normal disc space heights. A possibly 50% loss of height of the superior endplate of the L1 vertebrae. There is atherosclerotic calcification of the abdominal aorta without a demonstrated aneurysm. RAD/L/S Spine Min 4 Views IMPRESSION: Osteopenia. 50% loss of height of the superior endplate of the L1 vertebrae. Electronically Signed: Babak Lorenzana MD at 12:42 EDT ,
== END | disposition home or self-care (01) ==
LOC: MTRAD 11:34
PROVIDERS: PCP Family Medicine; Referring Provider Nurse Practitioner Family; Visit Provider Nurse Practitioner Family
DX: M54.50 Low back pain, unspecified (principal); Z87.39 Personal history of other diseases of the musculoskeletal system and connective tissue
CPT/HCPCS: 72110

== ENCOUNTER → 2023-02-03 | Outpatient (CLI) | payer MEDICARE, MEDICAID, SELFPAY ==
[2023-02-03 12:19] LABS: Absolute Lymphocyte Count 1.82 X10^3/uL (0.83-4.51); Absolute Neutrophil Count 5.1 X10^3/uL (2.0-7.7); Basophil# 0.03 X10^3/uL; Basophil% 0.4 % (0-1); Eosinophil# 0.09 X10^3/uL; Eosinophils% 1.1 % (0-5); Hematocrit 41.7 % (37-47); Hemoglobin 12.9 g/dL (12.0-15.0); Lymphocyte # 1.82 X10^3/ul (0.83-4.51); Lymphocyte % 23.2 % (19-41); Mean Corp Hgb Conc 30.9 g/dL (32-36); Mean Corpuscular Hgb 29.3 pg (27.0-32.0); Mean Corpuscular Volume 94.6 fL (81-99); Mean Platelet Vol. 10.4 fl (6.2-12.0); Monocyte# 0.79 X10^3/uL; Monocyte% 10.1 % (0-10); NRBC Flagged by Analyzer 0 % (0-5); Neutrophil # 5.08 X10^3/uL (2.7-7.7); Neutrophil % 64.8 % (47-70); Platelet Count 305 K/mm3 (150-450); RBC Distribution Width CV 14.9 % (11.6-14.6); RBC Distribution Width SD 52.4 fl (35.1-43.9); Red Blood Count 4.41 M/mm3 (4.2-5.4); White Blood Count 7.8 K/mm3 (4.4-11.0)
[2023-02-03 12:50] LABS: ALB/GLOB Ratio 0.9 RATIO (0.9-2.4); AST(SGOT) 19 U/L (15-37); Alanine Aminotransfer ALT/SGPT 27 U/L (13-56); Albumin, Serum 3.2 g/dL (3.2-5.0); Alkaline Phosphatase 126 U/L (45-117); Anion Gap 7 (5-15); BUN 19 mg/dL (7-18); BUN/Creat Ratio 13.5 RATIO (10-20); Calcium,Total 8.7 mg/dL (8.5-10.1); Chloride 101 mmol/L (98-107); Creatinine, Serum 1.41 mg/dL (0.55-1.02); EST Glomerular Filtration Rate 38 mL/min (>60); Est Glom Filt Rate - Afr Amer 45 mL/min (>60); Globulin 3.4 g/dL (2.2-4.2); Glucose 100 mg/dL (74-106); Potassium 3.4 mmol/L (3.5-5.1); Protein, Total 6.6 g/dL (6.4-8.2); Sodium Level 141 mmol/L (136-145)
== END | disposition home or self-care (01) ==
LOC: MTLAB 10:07
PROVIDERS: PCP Family Medicine; Referring Provider Family Medicine; Visit Provider Family Medicine
DX: I12.9 Hypertensive chronic kidney disease with stage 1 through stage 4 chronic kidney disease, or unspecified chronic kidney disease (principal); N18.30 Chronic kidney disease, stage 3 unspecified
CPT/HCPCS: 36415; 80053; 85025

== ENCOUNTER → 2023-03-13 | Outpatient (CLI) | payer MEDICARE, MEDICAID, SELFPAY ==
--- NOTE | 2023-03-13 09:37 | ART_ITS ---
Reason For Study: Claudication Procedure A bilateral lower extremity continuous wave Doppler with analog waveform analysis,segmental pressures,and ankle brachial indexes without exercise. Left Segmental Pressures Left brachial= 172mmHg. Left thigh = 106mmHg. Left calf = 95mmHg. Left posterior tibial artery = 83mmHg. Left dorsalis pedis artery = 82mmHg. Left digit = 38 mmHg. The left posterior tibial artery waveforms are monophasic. The left dorsalis pedis waveforms are monophasic. Right Segmental Pressures Right brachial= 173mmHg. Right thigh = 135mmHg. Right calf = 147mmHg. Right posterior tibial artery = 70mmHg. Right dorsalis pedis artery = 105mmHg. Right digit = 57 mmHg. Indices The right ankle brachial index by the posterior tibial artery is 0.40. The right ankle brachial index by the dorsalis pedis is 0.61. The right digital-brachial index is 0.33. The left ankle brachial index by the posterior tibial artery is 0.48. The left ankle brachial index by the dorsalis pedis is 0.47. The left digital-brachial index is 0.22. VL/Lower Ext Art Exam w/o Exercis Interpretation Summary Right ANDREE 0.61, moderate arterial insufficiency. Doppler/PVR waveforms and segm ental pressures reveal [id number] femoral, infrapopliteal disease. Left ANDREE 0.48, severe arterial insufficiency. Doppler/PVR waveforms and segment al pressures reveal [id number]-[id number] femoral disease Ordering Physician: Leora Kirkland Referring Physician: Deidre Borrero Performed By: Kash Romano RVT
== END | disposition home or self-care (01) ==
PROVIDERS: PCP Family Medicine; Visit Provider Physician Assistant
DX: I70.213 Atherosclerosis of native arteries of extremities with intermittent claudication, bilateral legs (principal)
CPT/HCPCS: 93923

== ENCOUNTER → 2023-03-24 | Outpatient (CLI) | payer MEDICARE, MEDICAID, SELFPAY ==
[2023-03-24 15:33] LABS: Absolute Neutrophil Count 16.6 X10^3/uL (2.0-7.7); Basophil# 0.04 X10^3/uL; Basophil% 0.2 % (0-1); Eosinophil# 0.04 X10^3/uL; Eosinophils% 0.2 % (0-5); Hematocrit 42.3 % (37-47); Hemoglobin 12.9 g/dL (12.0-15.0); Lymphocyte % 4.3 % (19-41); Mean Corp Hgb Conc 30.5 g/dL (32-36); Mean Corpuscular Hgb 28.4 pg (27.0-32.0); Mean Platelet Vol. 11.4 fl (6.2-12.0); Monocyte# 0.97 X10^3/uL; Monocyte% 5.2 % (0-10); NRBC Flagged by Analyzer 0 % (0-5); Neutrophil # 16.59 X10^3/uL (2.7-7.7); Neutrophil % 89.6 % (47-70); Platelet Count 236 K/mm3 (150-450); RBC Distribution Width CV 15.6 % (11.6-14.6); RBC Distribution Width SD 52.9 fl (35.1-43.9); Red Blood Count 4.55 M/mm3 (4.2-5.4); White Blood Count 18.5 K/mm3 (4.4-11.0)
[2023-03-24 15:49] LABS: ALB/GLOB Ratio 0.7 RATIO (0.9-2.4); AST(SGOT) 11 U/L (15-37); Alanine Aminotransfer ALT/SGPT 14 U/L (13-56); Albumin, Serum 2.6 g/dL (3.2-5.0); Alkaline Phosphatase 146 U/L (45-117); Anion Gap 8 (5-15); BUN 31 mg/dL (7-18); BUN/Creat Ratio 20.9 RATIO (10-20); Calcium,Total 8.4 mg/dL (8.5-10.1); Chloride 96 mmol/L (98-107); Creatinine, Serum 1.48 mg/dL (0.55-1.02); EST Glomerular Filtration Rate 35 mL/min (>60); Est Glom Filt Rate - Afr Amer 43 mL/min (>60); Globulin 3.7 g/dL (2.2-4.2); Glucose 103 mg/dL (74-106); Potassium 3.1 mmol/L (3.5-5.1); Protein, Total 6.3 g/dL (6.4-8.2); Sodium Level 134 mmol/L (136-145)
== END | disposition home or self-care (01) ==
LOC: BFHLAB 10:57
PROVIDERS: PCP Family Medicine; Visit Provider Family Medicine
DX: I12.9 Hypertensive chronic kidney disease with stage 1 through stage 4 chronic kidney disease, or unspecified chronic kidney disease (principal); N18.30 Chronic kidney disease, stage 3 unspecified
CPT/HCPCS: 36415; 80053; 85025

== ENCOUNTER → 2023-04-28 | Outpatient (CLI) | payer MEDICARE, MEDICAID, SELFPAY ==
[2023-04-28 13:10] LABS: Anion Gap 3 (5-15); BUN 13 mg/dL (7-18); BUN/Creat Ratio 14.3 RATIO (10-20); Calcium,Total 8.4 mg/dL (8.5-10.1); Chloride 108 mmol/L (98-107); Creatinine, Serum 0.91 mg/dL (0.55-1.02); EST Glomerular Filtration Rate 62 mL/min (>60); Est Glom Filt Rate - Afr Amer 75 mL/min (>60); Glucose 87 mg/dL (74-106); Potassium 4.4 mmol/L (3.5-5.1); Sodium Level 144 mmol/L (136-145); Thyroid Stim Hormone (TSH) 1.35 uIU/mL (0.358-3.74)
[2023-04-28 13:12] LABS: Vitamin B12 514 pg/mL (211-911)
== END | disposition home or self-care (01) ==
LOC: BFHLAB 10:42
PROVIDERS: PCP Family Medicine; Visit Provider Family Medicine
DX: I50.9 Heart failure, unspecified (principal); G31.84 Mild cognitive impairment of uncertain or unknown etiology; R53.83 Other fatigue; E55.9 Vitamin D deficiency, unspecified
CPT/HCPCS: 36415; 80048; 82306; 82607; 84443

== ENCOUNTER 2023-05-06 09:32 | Inpatient (IN) | payer MEDICARE, SELFPAY ==
[2023-05-06] VITALS (10 sets, daily range): BP systolic 106–124; BP diastolic 61–89; PULSE 74–98; RESP 15–18; TEMP 36.2–36.9; O2SAT 93–99; BMI 18.1; BMI 18.3
--- NOTE | 2023-05-06 10:06 | CT_ITS ---
We are attempting to reach an attending provider to discuss findings. An addendum with communication details will be sent when the communication is complete. INDICATION: confusion EXAMINATION: CT BRAIN - CT Head or Brain W/O Contrast Injection TECHNIQUE: Multiple axial images were obtained of the head without intravenous contrast. A radiation dose optimization technique was used for this scan. IV Contrast dosage and agent: None. RADIATION DOSAGE (If Supplied By Facility): CTDIvol = ( 44.99 ) mGy, DLP = ( 745.49 ) mGycm COMPARISON: Prior study dated: 08/05/2022. FINDINGS: BRAIN PARENCHYMA: Previously noted right parietal subdural hematoma has resolved. No evidence of acute bleed. Left temporal and posterior parietal infarct new since previous examination could be subacute or chronic. no intracranial mass or mass effect. Mild chronic periventricular deep white matter changes likely due to microvascular disease. Posterior fossa structures are unremarkable. Atherosclerotic calcifications of the cavernous internal carotid arteries. CSF SPACES: Appropriate for age. No hydrocephalus. Basal cisterns are patent. CALVARIUM, SKULL BASE, PARANASAL SINUSES AND MASTOID AIR CELLS: Clear. No discrete lytic or blastic abnormalities. ORBITS: Both globes, extraocular muscles, optic nerves and retrobulbar fat appear unremarkable. CT/Brain/Head without Contrast IMPRESSION: 1. Left temporoparietal infarct which could be subacute or chronic. MRI of the brain is recommended if clinically indicated. 2. Mild chronic involutional changes of the brain. 3. Intracranial atherosclerotic vascular calcifications. Electronically Signed: Nic Roberts MD at 12:08 [facility] ,
--- NOTE | 2023-05-06 10:08 | EKG12_ITS ---
Test Reason : Blood Pressure : / mmHG Vent. Rate : 082 BPM Atrial Rate : 000 BPM P-R Int : 000 ms QRS Dur : 100 ms QT Int : 442 ms P-R-T Axes : 000 -43 113 degrees QTc Int : 516 ms Atrial fibrillation with a competing junctional pacemaker with premature ventricular or aberrantly co nducted complexes Left axis deviation Left ventricular hypertrophy with repolarization abnormality ( [place] product ) Cannot rule out Septal infarct (cited on or before 05-AUG-2022) Inferior infarct (cited on or before 05-AUG-2022) Prolonged QT Abnormal ECG Confirmed by MARCUS VICTORIA, LIDIA ([id number]), mapping editor TAWNYA HEADLEY ([id number]) on 05/08/2023 6:07:24 AM Referred By: Confirmed By:LIDIA VELAZQUEZ MD
--- NOTE | 2023-05-06 10:09 | EDS_ITS ---
HPI History of Present Illness Chief Complaint: Confusion Informant: patient and family (Niece) Narrative Narrative: 87-year-old female who lives alone and has been confused for the past 3 to 4 days to the point where she has not eaten anything. She cannot remember if she urinated or not this morning. Most of the history is provided by the niece who helps her when she is around. She states she has had a chronic cough, she went to the doctor last week and was prescribed codeine for it and she started around the time when she started being confused. However her last dose was more than 24 hours ago, and this morning she is still extremely confused. Usually she is not confused at all. The patient denies having any pain right now or any other symptoms but ROS is limited due to her confusion. [facility] Medical History Chronic a-fib Chronic renal disease Dysphagia Fall History of ectopic HTN (hypertension) Left ventricular hypertrophy Longstanding persistent atrial fibrillation Moderate pulmonary hypertension Peripheral vascular disease Pleural effusion Pulmonary hypertension Subarachnoid hemorrhage Subdural hematoma Tobacco dependence Wrist fracture, left Home Medications ascorbic acid (vitamin C) 500 mg capsule 500 mg PO DAILY supp 04/19/22 [History Last Taken Unknown] acetaminophen 325 mg capsule (Tylenol) 650 mg (2 x 325 mg) PO Q6H PRN fever or pain #100 caps 08/22/22 [Rx Last Taken Unknown] atorvastatin 80 mg tablet 80 mg PO QHS cholesterol #30 tabs 08/22/22 [Rx Last Taken Unknown] cholecalciferol (vitamin D3) 25 mcg (1,000 unit) capsule 25 mcg PO DAILY supp #30 caps 08/22/22 [Rx Last Taken Unknown] aspirin 325 mg tablet,delayed release 325 mg PO DAILY 08/26/22 [History Last Taken Unknown] empagliflozin 10 mg tablet (Jardiance) 10 mg PO DAILY 08/31/22 [History Last Taken Unknown] spironolactone 25 mg tablet 25 mg PO DAILY 08/31/22 [History Last Taken Unknown] lisinopril 5 mg tablet (Zestril) 2.5 mg (1/2 x 5 mg) PO DAILY bp #30 tabs 09/01/22 [Rx Last Taken Unknown] alendronate 35 mg tablet 35 mg PO FR 12/02/22 [History Last Taken Unknown] ykinyhpwm-RH-uqyvxkuntaddx 1 tab PO ONCE PRN 12/02/22 [History Last Taken Unknown] carvedilol 25 mg tablet 25 mg PO BID #180 tabs 02/09/23 [Rx Last Taken Unknown] furosemide 40 mg tablet (Lasix) 40 mg PO DAILY 04/05/23 [History Last Taken Unknown] Allergy/AdvReac Type Severity Reaction Status Date / Time diphenhydramine AdvReac Intermediate Other Verified 05/06/23 09:39 [From Benadryl] Surgical History H/O: hysterectomy (~1972) History of cataract surgery (~1989) Social History household members: none and other details: she has been for 20 years. housing: other details: She lives in a trailer number of children: 1 current occupational status: retired pets and animals: Yes (2 cats) pets and animals: cat(s) Smoking Status: Light Smoker (<10/day) Tobacco: How many years used: 72 counseling given: provider counseling alcohol intake: current alcohol intake frequency: 0-2 drinks per day details: She drinks a small juice glass of wine, when she has it, 4-5 days per week. substance use type: does not use what type of physical activity do you participate in: walking ROS ROS ED Review of Systems ROS Unobtainable: due to mental status Eyes Eyes: Denies diplopia ENT ENT ED: Denies sore throat Cardiovascular Cardiovascular: Reports other Details: Lower extremity edema chronic and unchanged ; Denies chest pain Respiratory/Chest Respiratory/Chest: Reports cough; Denies dyspnea Gastrointestinal Gastrointestinal: Denies abdominal pain or nausea Musculoskeletal Musculoskeletal: Denies back pain or neck pain Neurologic Neurologic: Denies headache(s) or paresthesias EXAM Physical Exam Const Vital Signs: 05/06/23 09:33 05/06/23 11:33 05/06/23 12:23 Temperature 97.2 F L 98.4 F Temperature Source Temporal Temporal Pulse Rate 88 94 78 Respiratory Rate 15 16 16 Blood Pressure 124/77 H 106/89 H 113/78 Blood Pressure Mean 92 94 89 Pulse Ox 98 98 Oxygen Delivery Method Room Air Room Air Positive well nourished, well developed and cachectic General Appearance ED: well developed, cachectic and NAD Nutritional Appearance: cachectic HEENT Reports moist mucous membranes normocephalic and atraumatic Eyes PERRL and EOMs intact bilaterally Neck full ROM and supple Resp normal respiratory effort and clear to auscultation bilaterally Cardio Rate: Negative for tachycardic Rhythm: abnormal rhythm irregularly irregular Heart Sounds: murmur systolic I/ soft GI non-tender and non-distended Auscultation: normoactive bowel sounds Palpation: soft Back/Spine no CVA tenderness General Back: other FROM Extremity normal to inspection General Extremety ED: Yes edema; Negative for pulses abnormal or tenderness General Extremity: edema bilateral lower extremity Details: moderate (Edema seems symmetric but there is a tender area of erythema right lateral lower leg just above the ankle, that appears consistent with cellulitis without an abscess, family states this erythema is chronic and comes and goes); Negative for pulses abnormal Neuro CN's II-XII intact bilaterally and no sensory deficits noted Neuro Narrative: A&O x 0. No dysarthria. There is expressive aphasia at times; having difficulty following commands and sometimes, words are completely inappropriate. NIHSS 4. Sensorium / Orientation: awake, alert and orientation impaired Motor Exam: strength 5/5 throughout Psych mental status grossly normal Skin no rashes or lesions noted and no wounds NIHSS NIHSS Initial: 1a Level of Consciousness: 0 1b LOC Questions (Score 2 if aphasic/stupor): 2 1c LOC Commands (Only score 1st attempt): 1 2 Best Gaze (If aphasic, use reflexive mvmts.): 0 3 Visual: 0 4 Facial Palsy: 0 5 Motor Arm Right (UN = amputation/fusion): 0 5 Motor Arm Left: 0 6 Motor Leg Right: 0 6 Motor Leg Left: 0 7 Limb ataxia (Only + if out of proportion): 0 8 Sensory (Aphasia/stupor=0 or 1, coma=2): 0 9 Best Language: 1 10 Dysarthria (mute, coma=2, intubated=UN): 0 11 Extinction and Inattention (only scored if +): 0 Total Score: 4 MDM MDM MDM Narrative Medical decision making narrative: Certainly the patient starting the new medication codeine around the same time as the symptoms is suspicious with regards to timing, but typically narcotics do not do this to older patients. They typically cause somnolence/lethargy rather than confusion, however I am noting that every patient is different. We did a thorough workup measuring things that we could measure, she has some mild THOMAS compared with her creatinine a week ago, her chest x-ray 2 views my interpretation shows bilateral effusions worse than on her prior x-ray along with some cephalization consistent with congestive heart failure, difficult to rule out a right lower lobe pneumonia/consolidation. She does have a borderline white blood count along with a trend toward left shift without bandemia, which could be seen in context of an acute infection. Urinalysis to pending, alcohol negative, and EKG shows chronic A-fib with no acute changes or injury pattern. CT of the head was obtained, and it shows a new infarct compared with her old CT this past July, about 9 months ago. I discussed this with the radiologist. He sees no acute blood, the infarct is left parietal, and this could be the cause of her current confusion due to causing expressive aphasia. I reviewed the images and the report and I agree with it. I do see the infarct is in the posterior and middle aspect of the left parietal lobe, consistent with MCA territory inconsistent with the patient's likely location of her speech area. Plan is for admission and further stroke workup. History & Record Review Additional record(s) reviewed:: Prior outpatient record (Echocardiogram from 7 months ago ejection fraction 35%, left ventricular systolic and diastolic dysfunction) Lab Data Attestation: I reviewed the patient's lab results. Labs: Laboratory Results - last 24 hr 05/06/23 10:41 WBC 10.2 RBC 4.13 L Hgb 11.8 L Hct 37.8 MCV 91.5 MCH 28.6 MCHC 31.2 L RDW Std Deviation 57.0 H RDW Coeff of Jenny 16.8 H Plt Count 336 MPV 9.8 Immature Gran % (Auto) 0.300 Neut % (Auto) 81.9 H Lymph % (Auto) 9.1 L Floyd % (Auto) 8.2 Eos % (Auto) 0.3 Baso % (Auto) 0.2 Absolute Neuts (auto) 8.3 H Absolute Lymphs (auto) 0.93 Nucleated RBC % 0 Sodium 139 Potassium 3.9 Chloride 107 Carbon Dioxide 22.0 Anion Gap 10 BUN 26 H Creatinine 1.76 H Estim Creat Clear Calc 14.97 Est GFR (MDRD) Af Amer 35 L Est GFR (MDRD) Non-Af 29 L BUN/Creatinine Ratio 14.8 Glucose 98 Calcium 7.7 L Total Bilirubin 0.60 AST 10 L ALT 14 Alkaline Phosphatase 122 H Troponin I High Sens 12 Total Protein 5.2 L Albumin 1.9 L Globulin 3.3 Albumin/Globulin Ratio 0.6 L Ethyl Alcohol < 3.0 Radiography Diagnostic Testing: Clinical Impression(s) from Imaging Studies Brain CT 05/06/23 10:06 IMPRESSION: 1. Left temporoparietal infarct which could be subacute or chronic. MRI of the brain is recommended if clinically indicated. 2. Mild chronic involutional changes of the brain. 3. Intracranial atherosclerotic vascular calcifications. Electronically Signed: Nic Roberts MD at 12:08 EST Reading Location ID and State: [facility] / [place] Tel , Service support , ADDENDUM: 05/06/23 1223 IMPRESSION: 1. Left temporoparietal infarct which could be subacute or chronic. MRI of the brain is recommended if clinically indicated. 2. Mild chronic involutional changes of the brain. 3. Intracranial atherosclerotic vascular calcifications. N.B. : The above Results were Read Back by Nic Roberts MD to Amor Haines MD, and understanding confirmed on 05/06/2023 12:17:01 (ET). Electronically Signed: Nic Roberts MD at 12:08 EST Reading Location ID and State: [facility] / [place] Tel , Service support , Chest X-Ray 05/06/23 11:35 IMPRESSION: 1. Bilateral lower lungs infiltrates worse in the right side be due to pneumonia. 2. Moderate right pleural effusion increased since the previous exam. Electronically Signed: Nic Roberts MD at 12:13 EST Reading Location ID and State: [facility] / [place] Tel , Service support , Rhythm Strip Rhythm Strip: A-fib Rate: 80 Ectopy: None EKG Initial EKG: Attestation: I personally reviewed and interpreted this EKG as follows: Interpretation: No Acute Injury Pattern and Atrial Fibrillation Prior EKG tracings: available for review Prior: Unchanged Management Discussion w/another healthcare provider: Hospitalist and Radiologist Discharge Plan Triage Chief Complaint: Confusion ED Provider: Amor Haines Dx/Rx/DC Orders Clinical Impression: Acute ischemic left MCA stroke, History of CHF (congestive heart failure), Bilateral pleural effusion, Longstanding persistent atrial fibrillation Prescriptions: No Action ascorbic acid (vitamin C) 500 mg capsule 500 mg PO DAILY spironolactone 25 mg tablet 25 mg PO DAILY Jardiance 10 mg tablet 10 mg PO DAILY lisinopril [Zestril] 5 mg tablet 2.5 mg PO DAILY Qty: 30 5RF alendronate 35 mg tablet 35 mg PO FR Patient Comments: take 1 tablet by mouth every week IN THE MORNING 30 MINUTES befor... (REFER TO PRESCRIPTION NOTES). [id number] 1 tab PO ONCE PRN acetaminophen [Tylenol] 325 mg capsule 650 mg PO Q6H PRN (Reason: fever or pain) Qty: 100 0RF atorvastatin 80 mg tablet 80 mg PO QHS Qty: 30 0RF cholecalciferol (vitamin D3) 25 mcg (1,000 unit) capsule 25 mcg PO DAILY Qty: 30 0RF aspirin 325 mg Tablet,Delayed Release (Dr/Ec) 325 mg PO DAILY carvedilol 25 mg tablet 25 mg PO BID Qty: 180 3RF Rx Instructions: must administer with a meal/food Primary Care Provider: Deidre Borrero Referrals: Deidre Borrero MD [Primary Care Provider] - Disposition Disposition: Acute Care Hospital [facility] Stroke Documentation Questions Stroke Team Activated: No (due to timing - sx x 4d) Was Patient considered for Endovascular Intervention?: No-CTA not indicated
--- OUTSIDE RECORDS SUMMARY | 2023-05-06 10:23 | XMS RPT_ITS | CCD ---
Author Name Unknown Address [address] [place] [address] Organization [facility] Care Team Providers Care Electronic Component Processor Name Role Phone Sourav VICTORIA, [place] Primary Care Provider [phone] LEANN, RATHNA Referring Unavailable [facility] Primary Care Unavailable LEANN, RATHNA Referring Unavailable [facility], [place] Primary Care Unavailable LEANN, RATHNA Admitting Unavailable LEANN, RATHNA Attending Unavailable KARTHIK COLON Referring Unavailable [facility] Primary Care Unavailable JOSE MARIA LYN Consulting Unavailable ORLY VIZCAINO Consulting Unavailable LEANN, RATHNA Referring Unavailable [facility] Primary Care Unavailable LEANN, RATHNA Referring Unavailable [facility] Primary Care Unavailable LEANN, RATHNA Referring Unavailable [facility] Primary Care Unavailable LEANN, RATHNA Referring Unavailable [facility] Primary Care Unavailable ZION HILLMAN Attending Unavailable [facility] Primary Care Unavailable ZION HILLMAN Attending Unavailable [facility] Primary Care Unavailable CAMPOS GARDUNO Referring Unavailable [facility] Primary Care Unavailable Allergies Allergy Classification Reported Allergen(s) Allergy Type Date of Onset Reaction(s) Facility (8 sources) diphenhydrAMINE Drug Allergy 05-03-2022 Other [facility] (8 sources) pine bark extract Drug Allergy 08-05-2022 [facility] (3 sources) Pseudoephedrine Drug Allergy 09-15-2022 [facility] Medications Current Medications Medication Drug Class(es) Dates Sig (Normalized) Sig (Original) acetaminophen 500 mg oral tablet (6 sources) Start: 08-06-2022 End: 08-21-2022 take 1 tablet by mouth every eight hours acetaminophen (Tylenol) 500 MG tablet Take 1 tablet (500 mg) by mouth in the morning and 1 tablet (500 mg) at noon and 1 tablet (500 mg) before bedtime. Do all this for 10 days. 30 tablet 0 08/11/2022 08/21/2022 Active Completed/Discontinued Medications Medication Drug Class(es) Dates Sig (Normalized) Sig (Original) albuterol 0.833 mg/ml / ipratropium bromide 0.167 mg/ml inhalation solution (2 sources) Anticholinergic, beta2-Adrenergic Agonist Start: 08-06-2022 End: 08-11-2022 ipratropium-albut trini (Duo-Neb) 0.5-2.5 mg/3 mL nebulizer solution 3 mL aspirin 325 mg oral tablet (8 sources) Platelet Aggregation Inhibitor, Nonsteroidal Anti-inflammatory Drug Start: 04-19-2022 End: 08-11-2022 take 1 tablet by mouth once daily aspirin 325 MG tablet Take 325 mg by mouth daily. 0 04/19/2022 08/11/2022 Discontinued (Stop taking at discharge) ceFAZolin (Ancef) 1,000 mg in sodium chloride 0.9 % 50 mL IVPB (1 source) Start: 08-08-2022 End: 08-08-2022 ceFAZolin (Ancef) 1,000 mg in sodium chloride 0.9 % 50 mL IVPB cholecalciferol 0.025 mg oral tablet (9 sources) Vitamin D Start: 08-06-2022 End: 08-11-2022 take 25 ug by mouth once daily 25 mcg, Oral, Daily, First dose on 08/06/22 at 1130 Problems Active Problems Problem Classification Problem Date Documented Da te Episodic/Chronic Acute cerebrovascular disease (15 sources) Intracranial hemorrhage; Translations: [Nontraumatic intracranial hemorrhage, unspecified] Onset: 08-05-2022 08-05-2022 Chronic Cardiac dysrhythmias (3 sources) Chronic atrial fibrillation; Translations: [Chronic atrial fibrillation, unspecified] Onset: 08-30-2022 08-30-2022 Chronic Chronic kidney disease (3 sources) Chronic kidney disease; Translations: [Chronic kidney disease, unspecified] Onset: 05-16-2022 08-30-2022 Chronic E Codes: Fall (9 sources) Fall; Translations: [Unspecified fall, initial encounter] Onset: 08-06-2022 08-06-2022 Episodic Essential hypertension (3 sources) Hypertensive disorder; Translations: [Essential (primary) hypertension] Onset: 05-03-2022 08-30-2022 Chronic Fracture of upper limb (8 sources) Closed fracture of left forearm; Translations: [Unspecified fracture of left forearm, initial encounter for closed fracture] Onset: 08-06-2022 Episodic Malaise and fatigue (9 sources) Asthenia; Translations: [Other malaise] Onset: 08-06-2022 08-06-2022 Episodic Other nervous system disorders (11 sources) Acute pain due to injury; Translations: [Acute pain due to trauma] Onset: 08-06-2022 08-06-2022 Episodic Other nervous system disorders (1 source) Acute pain due to trauma; Translations: [Acute pain due to trauma] Onset: 08-06-2022 Episodic Peripheral and visceral atherosclerosis (3 sources) Peripheral vascular disease, unspecified; Translations: [Peripheral vascular disease, unspecified] Onset: 05-03-2022 08-30-2022 Chronic Pleurisy; pneumothorax; pulmonary collapse (5 sources) Pneumothorax; Translations: [Other pneumothorax] Onset: 08-11-2022 Episodic Residual codes; unclassified (9 sources) At risk of delirium; Translations: [Other specified personal risk factors, not elsewhere classified] Onset: 08-06-2022 08-06-2022 Episodic Substance-related disorders (3 sources) Tobacco dependence syndrome; Translations: [Nicotine dependence, unspecified, uncomplicated] Onset: 08-30-2022 08-30-2022 Chronic Unclassified (1 source) Traumatic subdural hemorrhage with loss of consciousness status unknown, initial encounter ([facility]); Translations: [Traumatic subdural hemorrhage with loss of consciousness status unknown, initial encounter ([facility])] Onset: 09-15-2022 Past or Other Problems Problem Classification Problem Date Documented Date Episodic/Chronic Unclassified (1 source) Traumatic subdural hemorrhage with loss of consciousness status unknown, initial encounter ([facility]); Translations: [Traumatic subdural hemorrhage with loss of consciousness status unknown, initial encounter ([facility])] Onset: 09-15-2022 Results Test Name Value Interpretation Reference Range Facil ity Vital Signs Date Time Vital Sign Value Performing Clinician Faci lity 11-01-2022 10:20-0400 Body height 152.4 cm Zion Hillman MD Work Phone: [facility] [employer] 11-01-2022 10:20-0400 Body mass index (BMI) [Ratio] 14.06 kg/m2 Zion Hillman MD Work Phone: [facility] 11-01-2022 10:20-0400 Body temperature 97.7 [degF] Zion Hillman MD Work Phone: [facility] [employer] 11-01-2022 10:20-0400 Body weight 32.66 kg Zion Hillman MD Work Phone: [facility] [employer] 11-01-2022 10:20-0400 Diastolic blood pressure 73 mm[Hg] Zion Hillman MD Work Phone: [facility] [employer] 11-01-2022 10:20-0400 Heart rate 96 /min Zion Hillman MD Work Phone: [facility] [employer] 11-01-2022 10:20-0400 Respiratory rate 16 /min Zion Hillman MD Work Phone: [facility] [employer] 11-01-2022 10:20-0400 Systolic blood pressure 107 mm[Hg] Zion Hillman MD Work Phone: [facility] [employer] 08-11-2022 14:03-0400 Body temperature 98.2 [degF] Rolan Noriega MD Work Phone: [facility] [employer] 08-11-2022 14:03-0400 Diastolic blood pressure 78 mm[Hg] Rolan Noriega MD Work Phone: [facility] [employer] 08-11-2022 14:03-0400 Heart rate 114 /min Rolan Noriega MD Work Phone: [facility] [employer] 08-11-2022 14:03-0400 Respiratory rate 16 /min Rolan Noriega MD Work Phone: [facility] [employer] 08-11-2022 14:03-0400 SaO2% (BldA) [Mass fraction] 95 % Rolan Noriega MD Work Phone: [employer] 08-11-2022 14:03-0400 Systolic blood pressure 129 mm[Hg] Rolan Noriega MD Work Phone: [employer] 08-07-2022 10:07-0400 Body height 152.4 cm Rolan Noriega MD Work Phone: [employer] 08-06-2022 14:39-0400 Body mass index (BMI) [Ratio] 17.77 kg/m2 Rolan Noriega MD Work Phone: [employer] 08-06-2022 14:39-0400 Body weight 41.28 kg Rolan Noriega MD Work Phone: [employer] Encounters Encounter Date Encounter Type Care Provider Facility Start: 11-01-2022 End: 11-01-2022 ambulatory ZION HILLMAN [facility] Start: 11-01-2022 End: 11-01-2022 Office outpatient visit 15 minutes Zion Hillman MD Work Phone: [facility] Procedures Date Procedure Procedure Detail Performing Clinician Start: 11-01-2022 Follow-up visit Follow-up ZION ANDREWS Start: 10-24-2022 Ct head/brain w/o co ntrast material Campos Garduno PA-C Work Phone: Start: 08-11-2022 Dup-scan xtr veins c omplete bilateral study Uriel Johnson MD Work Phone: Start: 08-11-2022 Basic metabolic pane l calcium total Uriel Johnson MD Work Phone: Start: 08-10-2022 Radiologic exam ches t single view Yolanda Garcia MD Work Phone: Start: 08-10-2022 Radiologic exam ches t single view Yolanda Garcia MD Work Phone: Start: 08-09-2022 Radiologic exam ches t single view Yolanda Garcia MD Work Phone: Start: 08-09-2022 Comprehensive metabo lic panel Yolanda Garcia MD Work Phone: Start: 08-08-2022 Ct head/brain w/o co ntrast material Zac Renteria DO Work Phone: Start: 08-08-2022 Radiologic exam ches t single view Yolanda Garcia MD Work Phone: Start: 08-08-2022 Dup-scan xtr veins c omplete bilateral study Uriel Johnson MD Work Phone: Start: 08-08-2022 Radiologic exam ches t single view Yolanda Garcia MD Work Phone: Start: 08-08-2022 RF Less than 1 hour Jessica Garcia MD Work Phone: Start: 08-08-2022 Basic metabolic pane l calcium total Yolanda Garcia MD Work Phone: Start: 08-07-2022 Ecg routine ecg w/le ast 12 lds i&r only Amisha A [place] DO Work Phone: Start: 08-07-2022 Cul bact xcpt urine blood/stool aerobic isol Rolan Noriega MD Work Phone: Start: 08-07-2022 Thoracentesis needle /cath pleura w/imaging Yolanda Garcia MD Work Phone: Start: 08-07-2022 BODY FLUID CELL DIFFERENTIAL Yolanda Garcia MD Work Phone: Start: 08-07-2022 Cell count misc body fluids w/differential count Yolanda Garcia MD Work Phone: Start: 08-07-2022 Lactate dehydrogenase ldh John Marin MD Work Phone: Start: 08-07-2022 Level iv surg pathol ogy gross&microscopic exam John Marin MD Work Phone: Start: 08-07-2022 PATHOLOGY REVIEW Carlton Garcia MD Work Phone: Start: 08-07-2022 Basic metabolic pane l calcium total Yolanda Garcia MD Work Phone: Start: 08-06-2022 Echo tthrc r-t 2d w/wom-mode compl spec&colr d John Marin MD Work Phone: Start: 08-06-2022 Iadna respiratry pro be & rev trnscr 12-25 target Gianluca Mcneill MD Work Phone: Start: 08-06-2022 Natriuretic peptide Ran krystyna Mcneill MD Work Phone: Start: 08-06-2022 Ecg routine ecg w/le ast 12 lds trcg only w/o i&r Yolanda Garcia MD Work Phone: Start: 08-06-2022 Ct head/brain w/o co ntrast material Lillian Campbell MD Work Phone: Start: 08-06-2022 Ct thorax w/o contra st material Lillian Campbell MD Work Phone: Start: 08-06-2022 Basic metabolic pane l calcium total Yolanda Garcia MD Work Phone: Start: 08-05-2022 Basic metabolic pane l calcium total Annabelle Bob MD Work Phone: Start: 08-05-2022 End: 08-05-2022 Ecg routine ecg w/least 12 lds i&r only Annabelle Bob MD Work Phone: Plan of Treatment Date Care Activity Detail Author Start: 12-23-2022 Influenza vaccination [facility] Start: 11-01-2022 End: 11-01-2022 Patient encounter procedure 11/01/2022 10:15 AM EDT Office Visit [address] [id number] Zion Hillman MD [address] [place] [id number] [facility] Start: 09-16-2000 Pneumococcal Vaccine: 65+ Years (1 - PCV) Pneumococcal Vaccine: 65+ Years (1 - PCV) [facility] Start: 09-16-1985 Zoster Vaccines (1 of 2) Zoster Vaccines (1 of 2) [facility] Start: 09-16-1954 DTaP/Tdap/Td Vaccines (1 - Tdap) DTaP/Tdap/Td Vaccines (1 - Tdap) [facility] Start: 09-16-1954 Hepatitis A Vaccines (1 of 2 - Risk 2-dose series) Hepatitis A Vaccines (1 of 2 - Risk 2-dose series) [facility] Start: 09-16-1953 Diabetes mellitus screening Diabetes Screening [facility] Start: 1947 Depression Screening Depression Screening [facility] Start: 09-16-1941 Pneumococcal Vaccine: 65+ Years (1 - PCV) Pneumococcal Vaccine: 65+ Years (1 - PCV) [facility] Start: 03-19-1936 COVID-19 Vaccine (#1) COVID-19 Vaccine (#1) [facility] Start: 1935 Hepatitis B Vaccines (1 of 3 - 3-dose series) Hepatitis B Vaccines (1 of 3 - 3-dose series) [facility] Start: 1935 Lipid panel Lipid Panel [facility] Start: 1935 Screening for osteoporosis Bone Density Scan [facility] OUTSIDE PROCEDURE SCAN OUTSIDE P ROCEDURE SCAN Procedures Ordered: 10/21/2022 [facility] Payers Date Payer Category Payer Medicare [employer] UHC AARP MEDICARE ADVANTAGE [id number] 2022-Present [phone] [address] [address] [place] [address] Medicare HMO [id number] 2022 Medicare [id number] 2021 [place] [id number] 2021-Present [address] [place] [address] Medicaid [id number] 2021 Medicaid [id number] Social History Date Type Detail Facility Start: 08-05-2022 Tobacco smoking status SCIS Smokes t obacco daily [facility] End: 08-05-2022 History of tobacco use Cigarette Smoker [facility] Start: 08-05-2022 End: 09-15-2022 Tobacco use and exposure Smokeless tobacco non-user [facility] Start: 08-09-2022 End: 09-15-2022 Alcohol intake Current drinker of alcohol (finding) [facility] Start: 08-09-2022 End: 09-15-2022 Alcohol intake [facility] Start: 1935 Sex Assigned At Female [facility] Start: 07-27-2022 End: 11-01-2022 Exposure to SARS-CoV-2 (event) Not sure [facility] Start: 09-15-2022 Tobacco smoking status [facility] Ex-smoke r [facility] End: 08-05-2022 History of tobacco use Current smoker [facility] Start: 09-15-2022 Tobacco use panel [facility] Start: 08-05-2022 Gender identity Identifies as female gender (finding) [facility] Start: 08-05-2022 Sexual orientation Heterosexual (fin ding) [facility] Clinical Notes 08-06-2022 to 11-01-2022 Zion Hillman MD - 11/01/2022 10:15 AM Carli Arevalo RN - 08/11/2022 2:02 PM Carli Arevalo RN - 08/11/2022 2:02 PM Richa Quintero RN - 08/08/2022 7:54 AM EDTAttachments Note Date & Type Note Facility 11-01-2022 History of Presen t illness Narrative NEUROSURGERY and SPINE FOLLOW-UP NOTE Patient Name: Dayana Salamanca Patient : 1935 PCP: Deidre Borrero MD History of Present Ilness: 87 y.o. presents with follow up CT head. She was in the hospital a couple months ago and was noted to have a right sided subdural hematoma after a fall. She is doing well. She is here today with family. She is at her neurological baseline. The rest of her history was reviewed and reverified from previous visit. Chief Complaint Patient presents with Follow-up CT f/u Past Medical History: Past Medical History: Diagnosis Date Atrial fibrillation (CMS/HCC) (HCC) HTN (hypertension) Past Surgical History: Past Surgical History: Procedure Laterality Date CATARACT EXTRACTION Bilateral HYSTERECTOMY 1977 Home Medications: Prior to Admission medications Medication Sig Start Date End Date Taking? Authorizing Provider acetaminophen (Tylenol) 325 MG tablet Take 650 mg by mouth every 6 hours as needed for mild pain (1-3). Yes Historical Provider, ascorbic acid (Vitamin C) 500 MG ER capsule Take 1 capsule by mouth daily. 04/19/22 Yes Historical Provider, aspirin 325 MG tablet Take 325 mg by mouth daily. Yes Historical Provider, atorvastatin (Lipitor) 80 MG tablet Take 80 mg by mouth Nightly. 04/19/22 Yes Historical Provider, carvedilol (Coreg) 25 MG tablet Take 25 mg by mouth in the morning and 25 mg in the evening. Take with meals. Yes Historical Provider, cholecalciferol (Vitamin D-3) 25 MCG (1000 UT) capsule Take 1 capsule by mouth daily. 04/19/22 Yes Historical Provider, empagliflozin (Jardiance) 10 MG Take 10 mg by mouth. Yes Historical Provider, furosemide (Lasix) 40 MG tablet Take 40 mg by mouth 2 times daily. 04/19/22 Yes Historical Provider, lisinopril 5 MG tablet Take 2.5 mg by mouth daily. 1/2 tab in the morning 04/19/22 Yes Historical Provider, spironolactone (Aldactone) 25 MG tablet Take by mouth daily. Yes Historical Provider, traMADol (Ultram) 50 MG tablet Take 50 mg by mouth every 6 hours as needed for severe pain (7-10). Yes Historical Provider, verapamil ER (Verelan) 240 MG 24 hr capsule Take 240 mg by mouth daily. 04/19/22 Historical Provider, Allergies: Diphenhydramine, [place], and Sudafed [pseudoephedrine] Social History: TOBACCO: reports that she quit smoking about 2 months ago. Her smoking use included cigarettes. She has never used smokeless tobacco. ETOH: reports current alcohol use of about 5.0 standard drinks of alcohol per week. RECREATIONAL DRUG USE: Social History Substance and Sexual Activity Drug Use Never Family History: No family history on file. Review of Systems: Review of Systems Constitutional: Negative for chills and fever. HENT: Negative for congestion, rhinorrhea and sore throat. Eyes: Negative for photophobia and visual disturbance. Respiratory: Negative for cough and shortness of breath. Cardiovascular: Negative for chest pain and palpitations. Gastrointestinal: Negative for abdominal pain, nausea and vomiting. Genitourinary: Negative for decreased urine volume and difficulty urinating. Musculoskeletal: Positive for gait problem. Negative for back pain and neck pain. Skin: Negative for rash and wound. Neurological: Positive for weakness. Negative for dizziness, seizures, speech difficulty, numbness and headaches. Psychiatric/Behavioral: Positive for confusion. Negative for behavioral problems. Physical Examination: Vitals: 11/01/22 1020 BP: 107/73 Pulse: 96 Resp: 16 Temp: 36.5 C (97.7 F) Physical Exam Vitals reviewed. Constitutional: Appearance: Normal appearance. HENT: Head: Normocephalic and atraumatic. Nose: Nose normal. Mouth/Throat: Pharynx: Oropharynx is clear. Eyes: Extraocular Movements: Extraocular movements intact. Conjunctiva/sclera: Conjunctivae normal. Cardiovascular: Rate and Rhythm: Normal rate and regular rhythm. Pulses: Normal pulses. Pulmonary: Effort: Pulmonary effort is normal. No respiratory distress. Abdominal: General: There is no distension. Palpations: Abdomen is soft. Tenderness: There is no abdominal tenderness. Musculoskeletal: General: No tenderness. Normal range of motion. Cervical back: Normal range of motion and neck supple. No rigidity. Skin: General: Skin is warm and dry. Neurological: Mental Status: She is alert and oriented to person, place, and time. Cranial Nerves: No cranial nerve deficit. Sensory: No sensory deficit. Motor: No weakness. Gait: Gait abnormal. Deep Tendon Reflexes: Reflexes normal. Comments: Cachetic and debilitated in appearance Awake and alert, converses, speech nl Moves all extremities equally, no focal deficits noted Psychiatric: Mood and Affect: Mood normal. Behavior: Behavior normal. Gait Unsteady, uses cane Results Labs: Last 24hrs No results found for this or any previous visit (from the past 24 hour(s)). Radiology Personal review: Recent CT of the brain demonstrates resolution of the previously noted right-sided subdural hematoma ASSESSMENT / PLAN : 87yo f with follow up for right sided subdural hematoma. Her imaging was reviewed with her. Her right sided subdural has completely resolved. There are no surgical indications, and she does not require any additional imaging or work up at this time. She has returned to her functional baseline and has recovered well from her head trauma. She will follow up with me on a prn basis. I answered all of her and her family member's questions, and they understand signs and symptoms that would suggest deterioration. Diagnosis Plan 1. Subdural hematoma (HCC) documented in this encounter [facility] 08-11-2022 Note Attestation signed by Tracy Pérez MD at 08/16/2022 2:06 PM I agree with the assessment and the plan as documented by the PA-C below. Tracy Pérez MD Department of Trauma / Critical Care Discharge Summary Name: Dayana Salamanca Date: 08/15/2022 9:18 AM : 1935 Age/Sex: 86 y.o. female Admit Date: 08/05/22 Discharge Date: 08/11/22 Attending: No att. providers found Discharge Diagnosis: 1. Intracranial hemorrhage (HCC) 2. Acute pain due to trauma 3. Closed fracture of left forearm, initial encounter Patient Active Problem List Diagnosis Intracranial hemorrhage (HCC) Debility Fall Acute pain due to trauma At risk for delirium Other pneumothorax Closed fracture of left forearm with routine healing Body mass index is 17.77 kg/m?. BMI Classification: Underweight (BMI <18.5) Reason for Hospitalization: The patient was admitted for SDH, left wrist fracture. Hospital Course (Care, treatment and services provided): Please see H&P and prior notes for more detailed summary of previous investigations and clinical assessment prior to this admission. Brief HPI 86 y.o. female status post [facility]. The incident happened around 8AM on 08/05 at home. When the event happened the patient was walking at home when she tripped over her carpet and fell, hitting her left hand and face. She remembers the whole incident. Patient pain level currently is 5/10. Patient endorses 4 cigarette use for the past 10 years. INJURIES: - R SDH - B/l SAH - R>L pleural effusions - L distal radius and ulna fx PROCEDURES: 08/07 Right thoracentesis 08/08 Right chest tube Incidental Findings: none Hospital course: Patient had a mechanical fall at home and found to have an intracranial hemorrhage and left wrist fracture at [facility]. Patient was a direct admit to our service for further evaluation. Orthopedics reduced and splinted the left wrist and will remain NWB in LUE until further follow up. Repeat head CT was stable. Patient to remain off ASA until follow up with NSGY. Aware of chance of expansion and requiring evacuation later on, will follow up with NSGY as an OP. Patient did have an episode of rectal prolapse that was able to be reduced, will follow up as an OP. Pleural effusions bilaterally however the right did require thoracentesis with chest tube placement secondary to residual PTX. Episodes of A fib with RR which was corrected chemically. Chest tube was removed and patient did not experience any further shortness of breath or chest pains. CXR did not show evidence of ongoing PTX. Patient agreeable to rehab prior to her son coming into town to stay and care for her at home. Patient discharged in stable condition and agreeable with the plan. Consultations: IP CONSULT TO NEUROSURGERY IP CONSULT TO ORTHOPAEDIC SURGERY IP CONSULT TO PALLIATIVE CARE IP CONSULT TO GERIATRICS IP CONSULT TO DIETITIAN PCP: Deidre Borrero MD Recommended Follow-ups: Treatments and Procedures with outcomes: Labs: Data Review Data CBC with Differential: No results found for: WBC, RBC, HGB, HCT, PLT CMP: No results found for: NA, K, CL, CO2, BUN, CREATININE, AGRATIO, LABGLOM, GLUCOSE, PROT, CALCIUM, BILITOT, ALKPHOS, AST, ALT BMP: Hepatic Function Panel: Ionized Calcium: No components found for: IONCA Magnesium: No results found for: MG Phosphorus: No results found for: PHOS PT/INR: No results found for: PROTIME, INR PTT: No results found for: APTT[APTT Last 3 Troponin: No results found for: TROPONINI Urine Culture: No components found for: CURINE Blood Culture: No components found for: CBLOOD, CFUNGUSBL Blood Culture from Central Line: No components found for: CBLOODLN Stool Culture: No components found for: CSTOOL Sputum Culture: No components found for: CSPUTUM Sputum Culture for AFB: No components found for: CAFBSM Wound Culture: none Procedures: 08/07 Right thoracentesis 08/08 Right chest tube Significant Imaging Results: XR chest 1 view Result Date: 08/10/2022 Patient Name: DAYANA SALAMANCA : 1935 Exam Date/Time: 08/10/2022 12:34 Procedure: XR CHEST 1 VIEW Ordering Provider: NORIEGA RATHNA Reason For Exam: Removed right chest tube PORTABLE CHEST X-RAY CLINICAL INDICATION: Chest tube removal A portable frontal view of the chest was obtained. COMPARISON: 08/10/2022 FINDINGS: Heart size is within normal limits. Right-sided pigtail type chest tube has been removed. No pneumothorax is currently identified. There are small right and moderate left pleural effusions. Basilar atelectasis or infiltrate is similar to the prior examination. No new areas of consolidation are seen. There are degenerative changes of the thoracic spine wit (more content not included)... [facility] 08-11-2022 Nurse Note Report called to [facility]. [phone] [facility] 08-11-2022 Nurse Note Report called to [facility]. [phone] Spoke with resident about hydralazine order parameters , it is use as first line for BP greater than 140 although patients heart rate is greater then 110 . New orders received documented in this encounter [facility] 08-11-2022 History of Presen t illness Narrative Physical Therapy Facility/Department: 3W Physical Therapy Daily Treatment Note NAME: Dayana Salamanca : 1935 Date of Service: 08/11/2022 Discharge Recommendations: Facility based therapy PT Equipment Recommendations Equipment Needed: No Assessment Requires PT Follow-Up: Yes Assessment: Pt tolerated session well. Pt able to recall precaution NWB LUE. Supine therex. Encouraged LE exercises for strength. Pt sit to stand, provided cues for hand placement and upright posture. Increased time taken for stance. Pt ambulation with [employer], postural instability throughout and difficulty during turns. Rec facility based therapy at discharge. Performance Deficits/Impairments: Decreased functional mobility , Decreased ROM, Decreased strength, Decreased balance, Decreased posture, Decreased endurance, Decreased safe awareness Decision Making: Low Complexity Patient Diagnosis(es): The primary encounter diagnosis was Intracranial hemorrhage (HCC). Diagnoses of Acute pain due to trauma and Closed fracture of left forearm, initial encounter were also pertinent to this visit. has a past medical history of HTN (hypertension). has no past surgical history on file. Restrictions Restrictions/Precautions Restrictions/Precautions: Fall Risk, Weight Bearing Required Braces or Orthoses?: Yes (soft cast to left wrist) Upper Extremity Weight Bearing Restrictions Left Upper Extremity Weight Bearing: Non Weight Bearing Required Braces or Orthoses Left Upper Extremity Brace/Splint: splint Position Activity Restriction Other position/activity restrictions: Subjective General Chart Reviewed: Yes Family / Caregiver Present: No Diagnosis: fall, Fran SAH, R SDH, L distal radius and ulna fracture Subjective Subjective: Pt supine in bed, pleasant and agreeable to PT. Pt c/o L wrist pain. Patient Stated Goal: to get stronger and go home. Pain Assessment Pain Type: Acute pain Pain Location: Wrist Pain Orientation: Left Cognition/Orientation Overall Cognitive Status: WFL Overall Orientation Status: Within Functional Limits Orientation Level: Oriented to place, Oriented to time, Oriented to person Objective Bed mobility Supine to Sit: Stand by assistance Sit to Supine: Stand by assistance Scooting: Stand by assistance Transfers Sit to Stand: Minimal Assistance Stand to sit: Minimal Assistance Ambulation Ambulation: Yes Ambulation 1 Surface 1: Level tile Device 1: Hand held assist Assistance 1: Minimum assistance Quality of Gait 1: slow yoel, instability throughout all phases Quality of Gait Comment 1: short step length, postural instability during turns Distance (ft) 1: 15', 80' Balance Comments: Pt static sitting balance decreased trunk and neck extension, pt static standing balance, no LOB, flexed posture, [employer]IAN x 1 Exercises Quad Sets: AROM BLE x 10 Heelslides: AROM BLE x 10 Hip Abduction: AROM BLE x 10 Hip Adduction: AROM BLE x 10 Knee Short Arc Quad: AROM BLE x 10 Ankle Pumps: AROM BLE x 10 Plan Times per Week: 3-5x Plan Weeks: 2 wks Current Treatment Recommendations: Strengthening, Balance Training, Gait Training, Functional Mobility Training, Transfer Training, ADL/Self-care Training, Endurance Training, Equipment Evaluation, Education, & procurement, Patient/Caregiver Education & Training, Safety Education & Training, Stair training, Home Exercise Program Safety Safety Devices Safety Devices in Place: Yes Type of Devices: Left in chair, Call light within reach, Chair alarm in place Restraints Restraints Initially in Place: No AM-PAC Score AM-PAC Inpatient Mobility Raw Score: 14 Mobility Inpatient [facility] G-Code Modifier: CL Goals Encounter Problems Encounter Problems (Active) Mobility Patient will ambulate 50 feet with modified independence and least restrictive device in order to improve safety and independence with mobility. (Progressing) Start: 08/09/22 Expected End: 08/23/22 Patient will ascend and descend 3 stairs with one railing and modified independence in order to safely negotiate home. (Not Addressed) Start: 08/09/22 Expected End: 08/23/22 Safety Patient will recall/demonstrate weight bearing and/or ROM restrictions with all functional mobility in order to promote healing and safety with functional tasks. (Progressing) Start: 08/09/22 Expected End: 08/23/22 Transfers Patient will perform bed mobility with modified independence in order to improve independence and prepare for out of bed mobility. (Progressing) Start: 08/09/22 Expected End: 08/23/22 Patient will complete functional transfer with least restrictive device with modified independence in order to prepare for ambulation. (Progressing) Start: 08/09/22 Expected End: 08/23/22 Education Education Given To: Patient Education Provided: Gait Training, Transfer Training, Weight-bearing Education, General Safety Education Method: Verbal Barriers to Learning: None Education Outcome: Verbalized understanding Therapy Time Individual Co-treatment Time In 1230 Time Out 1254 Minutes 24 Timed Code Treatment Minutes: (1gt-1tp) LOPEZ Rod C [employer] WORK[employer] Images from the original note were not included. Daily Trauma Progress Note DEAN 08/11/2022 6:29 AM Admit Date: 08/05/2022 Post Trauma Day 6 Fall Mechanical HISTORY OF TRAUMATIC EVENT: 86 y.o. female status post [facility]. The incident happened around 8AM on 08/05 at home. When the event happened the patient was walking at home when she tripped over her carpet and fell, hitting her left hand and face. She remembers the whole incident. Patient pain level currently is 5/10. Patient endorses 4 cigarette use for the past 10 years. INJURIES: - R SDH - B/l SAH - R>L pleural effusions - L distal radius and ulna fx PROCEDURES: 08/07 Right thoracentesis 08/08 Right chest tube INCIDENTAL FINDINGS: None CHIEF COMPLAINT: Left wrist pain PREVIOUS 24 HOUR EVENTS: - chest tube removed yesterday Consults: IP CONSULT TO NEUROSURGERY IP CONSULT TO ORTHOPAEDIC SURGERY IP CONSULT TO PALLIATIVE CARE IP CONSULT TO GERIATRICS IP CONSULT TO DIETITIAN MEDICATIONS: Current Facility-Administered Medications: acetaminophen (Tylenol) tablet 500 mg, 500 mg, Oral, q8h, Uriel Johnson MD, 500 mg at 08/11/22 0615 atorvastatin (Lipitor) tablet 80 mg, 80 mg, Oral, Nightly, Uriel Johnson MD, 80 mg at 08/10/222107 cholecalciferol (Vitamin D3) tablet 25 mcg, 25 mcg, Oral, Daily, Uriel Johnson MD, 25 mcg at 08/10/22 0901 furosemide (Lasix) tablet 20 mg, 20 mg, Oral, Daily, Uriel Johnson MD, 20 mg at 08/10/22 09 heparin injection 5,000 Units, 5,000 Units, SubCUTAneous, 2 times per day, Uriel Johnson MD, 5,000 Units at 08/10/22 210 hydrALAZINE (Apresoline) injection 10 mg, 10 mg, IntraVENous, q4h PRN, Uriel Johnson MD ipratropium-albuterol (Duo-Neb) 0.5-2.5 mg/3 mL nebulizer solution 3 mL, 3 mL, Nebulization, PRN, Uriel Johnson MD labetalol (Normodyne,Trandate) injection 10 mg, 10 mg, IntraVENous, q4h PRN, Uriel Johnson MD, 10 mg at 08/10/22 1107 lisinopril tablet 5 mg, 5 mg, Oral, Daily, Gianluca Mcneill MD, 5 mg at 08/10/22 09 naloxone (Narcan) injection 0.4 mg, 0.4 mg, IntraVENous, PRN, Uriel Johnson MD ondansetron ODT (Zofran-ODT) disintegrating tablet 4 mg, 4 mg, Oral, q8h PRN OR ondansetron (Zofran) injection 4 mg, 4 mg, IntraVENous, q6h PRN, Uriel Johnson MD oxyCODONE (Roxicodone) immediate release tablet 2.5 mg, 2.5 mg, Oral, q4h PRN, 2.5 mg at 08/11/22 0310 OR [DISCONTINUED] oxyCODONE (Roxicodone) immediate release tablet 5 mg, 5 mg, Oral, q4h PRN, Yolanda Garcia MD, 5 mg at 08/08/22 1327 perflutren lipid microspheres (Definity) injection 1.65 mg, 1.65 mg, IntraVENous, Once PRN, Uriel Johnson MD polyethylene glycol (PEG) 3350 (Miralax) packet 17 g, 17 g, Oral, Daily, Uriel Johnson MD, 17 g at 08/10/22 0901 psyllium (Metamucil) 58.12 % packet 3.4 g of fiber, 3.4 g of fiber, Oral, Daily, Uriel Johnson MD, 3.4 g of fiber at 08/10/22 0901 verapamil SR (Calan SR) ER tablet 240 mg, 240 mg, Oral, Daily, Uriel Johnson MD, 240 mg at 08/10/22 0902 ARE THERE PERTINENT UPDATES TO PAST,FAMILY, OR SOCIAL HISTORY?: No Subjective: Patient sitting up right eating breakfast in no acute distress. She is feeling well. She feels better now without the chest tube and denies any shortness of breath and chest pains. Not requiring any O2. Review of Systems Constitutional: Negative for chills and fever. HENT: Negative for nosebleeds. Eyes: Negative for pain. Respiratory: Positive for cough and shortness of breath. Cardiovascular: Negative for chest pain. Gastrointestinal: Negative for abdominal pain, nausea and vomiting. Endocrine: Negative for polyuria. Musculoskeletal: Negative for back pain and neck pain. Left wrist pain Skin: Negative for rash. Ecchymosis Neurological: Negative for headaches. Psychiatric/Behavioral: Negative for agitation. PC-PTSD-5 Had nightmares about the event(s) or thought about the event(s) when you did not want to? No 2. Tried hard not to think about the event(s) or went out of your way to avoid situations that reminded you of the event(s)? No 3. Been constantly on guard, watchful, or easily startled? No 4. [place] numb or detached from people, activities, or your surroundings? No 5. [place] guilty or unable to stop blaming yourself or others for the event(s) or any problems the event(s) may have caused? No If yes to or more, place CLP consult PHQ In the last 2 weeks have you had: Little interest or pleasure in doing things No Been feeling down, depressed, or hopeless No If greater then 0, place CLP consult Date PHQ completed: 08/06 Objective: Patient Vitals for the past 24 hrs: BP Temp Temp src Pulse Resp SpO2 08/11/22 0234 (!) 116/48 36.9 C (98.4 F) Temporal 92 14 93 % 08/10/22 2227 127/70 37.4 C (99.3 F) Temporal 101 16 96 % 08/10/22 1529 135/66 37.9 C (100.3 F) Temporal 89 12 95 % 08/10/22 1443 135/72 37.4 C (99.4 F) Temporal 98 16 94 % 08/10/22 1200 139/77 -- -- 92 26 94 % 08/10/22 1104 (!) 144/67 -- -- 107 (!) 28 98 % 08/10/22 1100 (!) 169/143 -- -- (!) 128 21 97 % 08/10/22 1000 (!) 142/89 -- -- 95 21 100 % 08/10/22 0901 121/81 -- -- -- -- -- 08/10/22 0900 121/81 -- -- (!) 111 24 100 % 08/10/22 0848 (!) 151/76 -- -- 109 25 -- 08/10/22 0800 (!) 172/65 36.8 C (98.2 F) Temporal 102 18 97 % 08/10/22 0700 124/80 -- -- (!) 119 23 99 % Intake/Output Summary (Last 24 hours) at 08/11/2022 0629 Last data filed at 08/10/2022 1200 Gross per 24 hour Intake 200 ml Output 330 ml Net -130 ml No intake/output data recorded. Last BM: 08/09 Diet: Regular diet CVP: No Chest Tubes: R: No L: No PHYSICAL: Physical Exam Vitals and nursing note reviewed. Constitutional: General: She is not in acute distress. HENT: Head: Normocephalic and atraumatic. Mouth/Throat: Mouth: Mucous membranes are moist. Eyes: Conjunctiva/sclera: Conjunctivae normal. Comments: Left periorbital ecchymosis improving Cardiovascular: Rate and Rhythm: Normal rate and regular rhythm. Pulses: Normal pulses. Heart sounds: Normal heart sounds. No murmur heard. Pulmonary: Effort: Pulmonary effort is normal. No respiratory distress. Breath sounds: No wheezing, rhonchi or rales. Comments: Right CT removed, dressing c/d/I without strike through Full ROM of right arm On RA Abdominal: Palpations: Abdomen is soft. Tenderness: There is no abdominal tenderness. There is no guarding or rebound. Musculoskeletal: Right lower leg: No edema. Left lower leg: No edema. Comments: LUE in splint Skin: General: Skin is warm and dry. Neurological: Mental Status: She is alert and oriented to person, place, and time. Sensory: No sensory deficit. Motor: No weakness. Psychiatric: Mood and Affect: Mood normal. Behavior: Behavior normal. Sutures or shayne? No O2: NC / / /FiO2 (%): 28 % Data Review Data CBC with Differential: Lab Results Component Value Date WBC 11.7 (H) 08/11/2022 RBC 3.89 08/11/2022 HGB 11.2 (L) 08/11/2022 HCT 34.1 (L) 08/11/2022 PLT 286 08/11/2022 CMP: Lab Results Component Value Date NA 133 (L) 08/11/2022 K 4.3 08/11/2022 CL 103 08/11/2022 CO2 28 08/11/2022 BUN 21 (H) 08/11/2022 CREATININE 0.76 08/11/2022 GLUCOSE 98 08/11/2022 PROT 5.3 (L) 08/09/2022 CALCIUM 8.4 08/11/2022 BILITOT 0.6 08/09/2022 ALKPHOS 108 08/09/2022 AST 43 08/09/2022 ALT 23 08/09/2022 BMP: Hepatic Function Panel:Ionized Calcium: No components found for: IONCA Magnesium: Lab Results Component Value Date MG 2.1 08/09/2022 Phosphorus: Lab Results Component Value Date PHOS 3.2 08/09/2022 PT/INR: No results found for: PROTIME, INR PTT: No results found for: APTT[APTT Last 3 Troponin: No results found for: TROPONINI Urine Culture: No components found for: CURINE Blood Culture: No components found for: CBLOOD, CFUNGUSBL Blood Culture from Central Line: No components found for: CBLOODLN Stool Culture: No components found for: CSTOOL Sputum Culture: No components found for: CSPUTUM Sputum Culture for AFB: No components found for: CAFBSM Wound Culture: Radiology: CXR 08/09: Findings: Frontal chest view shows bilateral basilar infiltrates/atelectasis and bilateral pleural effusions, not significantly changed from last exam. Both lungs show otherwise interstitial prominence with mild congestion. The heart is borderline enlarged. There are atherosclerotic calcifications. Right chest tube is similar to prior. There is no mediastinal widening, pneumothorax, or other significant interval change. CT head 08/08: FINDINGS: Redemonstration of an acute subdural hemorrhage along the right cerebral convexity, similar to prior measuring thickness of approximately 6 mm. No significant right to left midline shift. There is regional sulcal effacement. Redemonstration of small focus of subarachnoid hemorrhage within the left frontal lobe sulcus, unchanged. Trace subdural hemorrhage along the right falx measuring up to 3 mm in thickness, more conspicuous as compared to the prior exam. Small foci of subarachnoid hemorrhage within the high right parietal lobe near the vertex. No hydrocephalus. Ventricles are stable in size and configuration. Scattered foci of hypoattenuation in the cerebral white matter are nonspecific but most compatible with microangiopathy. No CT evidence of acute large territorial infarct. Atherosclerotic vascular calcifications visualized at the skull base. Imaged portions of the paranasal sinuses and mastoid air cells are well aerated. No depressed calvarial fracture. Bilateral lens replacements. IMPRESSION: Redemonstration of an acute subdural hemorrhage along the right cerebral convexity and falx small foci of subarachnoid hemorrhage within the left frontal lobe and high right parietal lobe near the vertex, similar to prior. No definite new intracranial hemorrhage is seen. ECG 12 lead Result Date: 08/06/2022 Atrial fibrillation LVH with secondary repolarization abnormality Inferior infarct, old Anterior infarct, old ECG 12 lead Result Date: 08/05/2022 Atrial fibrillation LVH with secondary repolarization abnormality Inferior infarct, old Anterior infarct, old Electrocardiogram, 12-lead Result Date: 08/05/2022 Atrial fibrillation LVH with secondary repolarization abnormality Inferior infarct, old Anterior infarct, acute Prolonged QT interval Patient Active Problem List Diagnosis Intracranial hemorrhage (HCC) Debility Fall Acute pain due to trauma At risk for delirium ASSESSMENT: 86F s/p mechanical ground level fall found to have the following traumatic injuries: - R SDH - B/l SAH - R>L pleural effusions - L distal radius and ulna fx PLAN: Neuro/Spine: - Pain control: WILFREDO tylenol, PRN oxy 2.5 mg - Neurosurgery consulted - rCTH stable - Seizure ppx: none - Elevate HOB 30 degrees - Neuro checks q4h - Palliative consult - Geriatrics consult HEENT - No acute issues - Monitor left periorbital ecchymosis Cardiovascular - SBP goal <140 - Labetalol/hydralazine q4h prn - Home verapamil ER 240 mg - Home statin - home lisinopril 5 mg - Hold home ASA 325 mg - Continue home Lasix 20 mg - Telemetry - Echo EG 55% with normal motion LV Pulmonary - Goal SpO2 > 88% - Wean supplemental O2 as tolerated - CT with large right and moderate left pleural effusions - 08/07 R thora with 1250 ml serous fluid - Pathology with no malignant cells - IS - Acapella - Duonebs PRN - DC Right pigtail CT 08/10 - Post pull CXR w/o PTX FEN/GI - Regular diet - Ensure TID - Follow up Nurse Orthopaedic recs - Zofran PRN - Bowel regimen: Miralax, Metamucil - Daily BMP, Mg, Phos - Consult colorectal for rectal prolapse - Follow up outpatient - BMP, mg, sarah q48h : - Estimated Creatinine Clearance: 34.6 mL/min (by C-G formula based on SCr of 0.76 mg/dL). # THOMAS - resolved - Monitor Heme: - Hgb stable - CBC q48h ID: - No antibiotics indicated Endo: - No acute issues Lines/Devices: - PIV Prophylaxis: DVT: SCDs, heparin 5000 units q12h Has DVT PPX been started? Yes If no, why? NA GI: NA Pressure Ulcer: monitor, q2h turns Musculoskeletal: - Keep splint c/d/I - Follow up outpatient with Dr. Carrillo - PT/OT - Recommending facility based therapy - LUE NWB, all other extremities WBAT Is the patient in restraints?: No Medications Reconciled- Yes [x] NO [] Disposition: Continue 3W care, dispo planning Associated attestation - Tracy Pérez MD - 08/11/2022 6:49 PM EDT ATTENDING ADDENDUM Patient Active Problem List Diagnosis Intracranial hemorrhage (HCC) Debility Fall Acute pain due to trauma At risk for delirium Other pneumothorax Closed fracture of left forearm with routine healing I personally supervised the AURY/BELÉN in the evaluation and development of a treatment plan for this patient on the same day of service as above. I personally discussed the review of systems and interviewed the patient along with performing a physical examination. I reviewed the recent events, imaging, labs, vital signs. In addition, I discussed the patient's condition and treatment options with him/her when possible. I have also reviewed and agree with the past medical, family, and social history unless otherwise noted. All of the patient's questions were answered and family updated when appropriate and possible. 86 y/o frail female on 325mg ASA s/p mechanical trip and fall forward over a carpet at home on 08/05, resulting in 6 mm R SDH with tiny multifocal SAH (stable on rCTH) and L distal radius and ulna fractures. Incidentally found to have bilateral pleural effusions, s/p right thoracentesis 08/07 complicated by R pneumothorax, s/p R pigtail chest tube 08/08 (removed 08/10). - L SDH --> NSG signed off, no seizure ppx - L distal radius/ulna fractures --> reduced and splinted, LUE NWB, all other extremities WBAT - follow-up outpatient with Dr. Carrillo - continue home verapamil, lasix - hold home ASA, lisinopril - Ensure TID - rectal prolapse --> eval'd by Colorectal, reduce PRN, outpatient follow up - DVT ppx 5000 units heparin subq q12h - PT recommending facility based therapy -->referral sent to [facility] Level of Medical Decision Making: risk of morbidity from additional diagnostic testing or treatment due to frailty []High [x]Moderate []Low Complexity: Acute illness with systemic symptoms (MOD) Risk: Prescription drug management (MOD) Personally Reviewed/Independently interpreted patient's: [x]Epic notes []Radiology studies [x]Labs []EKG []Ordering tests []Other Discussed/ With: [x]Patient/Family [x]RN []Consultants []SW/TCC []Other I spent total time of 35 minutes reviewing previous notes, test results, and face to face with Dayana Salamanca discussing the diagnosis and importance of compliance with the treatment plan as well as documenting on the day of the visit. Tracy Pérez MD Division of Trauma Department of Surgery [facility] Pager: [phone]- Dr. Garcia at pt side to remove CT. 1220- CT removed by Dr. Garcia, pt tolerated well, and is sitting comfortably with no needs at this time. Images from the original note were not included. Daily Trauma Progress Note Resident 08/10/2022 6:09 AM Admit Date: 08/05/2022 Post Trauma Day 5 Fall Mechanical HISTORY OF TRAUMATIC EVENT: 86 y.o. female status post [facility]. The incident happened around 8AM on 08/05 at home. When the event happened the patient was walking at home when she tripped over her carpet and fell, hitting her left hand and face. She remembers the whole incident. Patient pain level currently is 5/10. Patient endorses 4 cigarette use for the past 10 years. INJURIES: - R SDH - B/l SAH - R>L pleural effusions - L distal radius and ulna fx PROCEDURES: 08/07 Right thoracentesis 08/08 Right chest tube INCIDENTAL FINDINGS: None CHIEF COMPLAINT: Left wrist pain PREVIOUS 24 HOUR EVENTS: No acute events overnight. Consults: IP CONSULT TO NEUROSURGERY IP CONSULT TO ORTHOPAEDIC SURGERY IP CONSULT TO PALLIATIVE CARE IP CONSULT TO GERIATRICS IP CONSULT TO DIETITIAN MEDICATIONS: Current Facility-Administered Medications: acetaminophen (Tylenol) tablet 500 mg, 500 mg, Oral, q8h, Yolanda Garcia MD, 500 mg at 08/10/22 05 atorvastatin (Lipitor) tablet 80 mg, 80 mg, Oral, Nightly, Yolanda Garcia MD, 80 mg at 08/09/222123 cholecalciferol (Vitamin D3) tablet 25 mcg, 25 mcg, Oral, Daily, Yolanda Garcia MD, 25 mcg at 08/09/22821 furosemide (Lasix) tablet 20 mg, 20 mg, Oral, Daily, Zac Renteria DO, 20 mg at 08/09/22 08 heparin injection 5,000 Units, 5,000 Units, SubCUTAneous, 2 times per day, Zac Renteria DO, 5,000 Units at 04/18/23 2124 hydrALAZINE (Apresoline) injection 10 mg, 10 mg, IntraVENous, q4h PRN, Yolanda Garcia MD ipratropium-albuterol (Duo-Neb) 0.5-2.5 mg/3 mL nebulizer solution 3 mL, 3 mL, Nebulization, PRN, Rolan Noriega MD labetalol (Normodyne,Trandate) injection 10 mg, 10 mg, IntraVENous, q4h PRN, Yolanda Garcia MD, 10 mg at 08/08/22 0757 naloxone (Narcan) injection 0.4 mg, 0.4 mg, IntraVENous, PRN, Yolanda Garcia MD ondansetron ODT (Zofran-ODT) disintegrating tablet 4 mg, 4 mg, Oral, q8h PRN OR ondansetron (Zofran) injection 4 mg, 4 mg, IntraVENous, q6h PRN, Yolanda Garcia MD oxyCODONE (Roxicodone) immediate release tablet 2.5 mg, 2.5 mg, Oral, q4h PRN, 2.5 mg at 08/09/22 0632 OR oxyCODONE (Roxicodone) immediate release tablet 5 mg, 5 mg, Oral, q4h PRN, Yolanda Garcia MD, 5 mg at 08/08/22 1327 perflutren lipid microspheres (Definity) injection 1.65 mg, 1.65 mg, IntraVENous, Once PRN, Yolanda Garcia MD polyethylene glycol (PEG) 3350 (Miralax) packet 17 g, 17 g, Oral, Daily, Yolanda Garcia MD, 17 g at 08/09/22 0822 psyllium (Metamucil) 58.12 % packet 3.4 g of fiber, 3.4 g of fiber, Oral, Daily, Yolanda Garcia MD, 3.4 g of fiber at 08/09/22 08 verapamil SR (Calan SR) ER tablet 240 mg, 240 mg, Oral, Daily, Yolanda Garcia MD, 240 mg at 08/09/22 0822 ARE THERE PERTINENT UPDATES TO PAST,FAMILY, OR SOCIAL HISTORY?: No Subjective: Patient awake and alert. Comfortable in bed on 2 L NC. Stabble shortness of breath and cough. Left wrist pain stable. Review of Systems Constitutional: Negative for chills and fever. HENT: Negative for nosebleeds. Eyes: Negative for pain. Respiratory: Positive for cough and shortness of breath. Cardiovascular: Negative for chest pain. Gastrointestinal: Negative for abdominal pain, nausea and vomiting. Endocrine: Negative for polyuria. Musculoskeletal: Negative for back pain and neck pain. Left wrist pain Skin: Negative for rash. Ecchymosis Neurological: Negative for headaches. Psychiatric/Behavioral: Negative for agitation. PC-PTSD-5 Had nightmares about the event(s) or thought about the event(s) when you did not want to? No 2. Tried hard not to think about the event(s) or went out of your way to avoid situations that reminded you of the event(s)? No 3. Been constantly on guard, watchful, or easily startled? No 4. [place] numb or detached from people, activities, or your surroundings? No 5. [place] guilty or unable to stop blaming yourself or others for the event(s) or any problems the event(s) may have caused? No If yes to or more, place CLP consult PHQ In the last 2 weeks have you had: Little interest or pleasure in doing things No Been feeling down, depressed, or hopeless No If greater then 0, place CLP consult Date PHQ completed: 08/06 Objective: Patient Vitals for the past 24 hrs: BP Temp Temp src Pulse Resp SpO2 08/10/22 0500 (!) 127/94 -- -- (!) 116 21 97 % 08/10/22 0400 122/79 36.7 C (98.1 F) Temporal 87 17 100 % 08/10/22 0300 103/84 -- -- 96 17 99 % 08/10/22 0200 136/54 -- -- (!) 111 20 98 % 08/10/22 0100 119/89 -- -- 107 (!) 27 98 % 08/10/22 0000 (!) 148/106 37 C (98.6 F) Temporal 100 21 98 % 08/09/22 2300 123/89 -- -- (!) 120 (!) 27 99 % 08/09/22 2200 (!) 147/84 -- -- 93 19 100 % 08/09/22 2100 128/86 -- -- 108 20 100 % 08/09/22 2000 (!) 141/76 37.1 C (98.8 F) Temporal 110 24 100 % 08/09/22 1900 (!) 143/108 -- -- 106 25 100 % 08/09/22 1800 -- -- -- 105 (!) 27 99 % 08/09/22 1600 -- -- -- (!) 112 24 100 % 08/09/22 1500 -- -- -- 102 (!) 28 100 % 08/09/22 1400 -- -- -- 103 25 100 % 08/09/22 1300 -- -- -- 101 (!) 27 99 % 08/09/22 1200 (!) 140/110 -- -- 106 21 -- 08/09/22 1100 -- -- -- 99 21 -- 08/09/22 1000 -- -- -- 92 20 100 % 08/09/22 0900 -- 36.6 C (97.9 F) -- (!) 112 21 100 % 08/09/22 0800 (!) 132/97 -- -- (!) 113 20 97 % 08/09/22 0700 -- -- -- 100 17 100 % Intake/Output Summary (Last 24 hours) at 08/10/2022 0609 Last data filed at 08/10/2022 0500 Gross per 24 hour Intake -- Output 1715 ml Net -1715 ml I/O this shift: In: - Out: 1005 [Urine:875; Chest Tube:130] Last BM: 08/09 Diet: Regular diet CVP: No Chest Tubes: R: Yes to water seal. Output: 390 serous fluid L: No PHYSICAL: Physical Exam Constitutional: General: She is not in acute distress. HENT: Head: Normocephalic and atraumatic. Mouth/Throat: Mouth: Mucous membranes are moist. Eyes: Conjunctiva/sclera: Conjunctivae normal. Comments: Left periorbital ecchymosis improving Cardiovascular: Rate and Rhythm: Normal rate and regular rhythm. Pulses: Normal pulses. Heart sounds: Normal heart sounds. No murmur heard. Pulmonary: Effort: Pulmonary effort is normal. No respiratory distress. Breath sounds: Rales (B/l bases) present. No wheezing or rhonchi. Comments: NC. Right chest tube with no air leak Abdominal: Palpations: Abdomen is soft. Tenderness: There is no abdominal tenderness. There is no guarding or rebound. Musculoskeletal: Right lower leg: No edema. Left lower leg: No edema. Comments: LUE in splint Skin: General: Skin is warm and dry. Neurological: Mental Status: She is alert and oriented to person, place, and time. Sensory: No sensory deficit. Motor: No weakness. Psychiatric: Mood and Affect: Mood normal. Behavior: Behavior normal. Sutures or shayne? No O2: NC / / /FiO2 (%): 28 % Data Review Data CBC with Differential: Lab Results Component Value Date WBC 12.8 (H) 08/09/2022 RBC 3.97 08/09/2022 HGB 11.8 08/09/2022 HCT 35.0 08/09/2022 PLT 271 08/09/2022 CMP: Lab Results Component Value Date NA 132 (L) 08/09/2022 K 4.6 08/09/2022 CL 105 08/09/2022 CO2 25 08/09/2022 BUN 21 (H) 08/09/2022 CREATININE 0.98 08/09/2022 GLUCOSE 98 08/09/2022 PROT 5.3 (L) 08/09/2022 CALCIUM 7.9 (L) 08/09/2022 BILITOT 0.6 08/09/2022 ALKPHOS 108 08/09/2022 AST 43 08/09/2022 ALT 23 08/09/2022 BMP: Hepatic Function Panel:Ionized Calcium: No components found for: IONCA Magnesium: Lab Results Component Value Date MG 2.1 08/09/2022 Phosphorus: Lab Results Component Value Date PHOS 3.2 08/09/2022 PT/INR: No results found for: PROTIME, INR PTT: No results found for: APTT[APTT Last 3 Troponin: No results found for: TROPONINI Urine Culture: No components found for: CURINE Blood Culture: No components found for: CBLOOD, CFUNGUSBL Blood Culture from Central Line: No components found for: CBLOODLN Stool Culture: No components found for: CSTOOL Sputum Culture: No components found for: CSPUTUM Sputum Culture for AFB: No components found for: CAFBSM Wound Culture: Radiology: CXR 08/09: Findings: Frontal chest view shows bilateral basilar infiltrates/atelectasis and bilateral pleural effusions, not significantly changed from last exam. Both lungs show otherwise interstitial prominence with mild congestion. The heart is borderline enlarged. There are atherosclerotic calcifications. Right chest tube is similar to prior. There is no mediastinal widening, pneumothorax, or other significant interval change. CT head 08/08: FINDINGS: Redemonstration of an acute subdural hemorrhage along the right cerebral convexity, similar to prior measuring thickness of approximately 6 mm. No significant right to left midline shift. There is regional sulcal effacement. Redemonstration of small focus of subarachnoid hemorrhage within the left frontal lobe sulcus, unchanged. Trace subdural hemorrhage along the right falx measuring up to 3 mm in thickness, more conspicuous as compared to the prior exam. Small foci of subarachnoid hemorrhage within the high right parietal lobe near the vertex. No hydrocephalus. Ventricles are stable in size and configuration. Scattered foci of hypoattenuation in the cerebral white matter are nonspecific but most compatible with microangiopathy. No CT evidence of acute large territorial infarct. Atherosclerotic vascular calcifications visualized at the skull base. Imaged portions of the paranasal sinuses and mastoid air cells are well aerated. No depressed calvarial fracture. Bilateral lens replacements. IMPRESSION: Redemonstration of an acute subdural hemorrhage along the right cerebral convexity and falx small foci of subarachnoid hemorrhage within the left frontal lobe and high right parietal lobe near the vertex, similar to prior. No definite new intracranial hemorrhage is seen. ECG 12 lead Result Date: 08/06/2022 Atrial fibrillation LVH with secondary repolarization abnormality Inferior infarct, old Anterior infarct, old ECG 12 lead Result Date: 08/05/2022 Atrial fibrillation LVH with secondary repolarization abnormality Inferior infarct, old Anterior infarct, old Electrocardiogram, 12-lead Result Date: 08/05/2022 Atrial fibrillation LVH with secondary repolarization abnormality Inferior infarct, old Anterior infarct, acute Prolonged QT interval Patient Active Problem List Diagnosis Intracranial hemorrhage (HCC) Debility Fall Acute pain due to trauma At risk for delirium ASSESSMENT: 86F s/p mechanical ground level fall found to have the following traumatic injuries: - R SDH - B/l SAH - R>L pleural effusions - L distal radius and ulna fx PLAN: Neuro/Spine: - Pain control: WILFREDO tylenol, PRN oxy 2.5 mg - DC oxy 5 mg PRN - [facility] - Seizure ppx: none - Elevate HOB 30 degrees - Neuro checks q4h - Palliative consult - Geriatrics consult HEENT - No acute issues - Monitor left periorbital ecchymosis Cardiovascular - SBP goal <140 - Labetalol/hydralazine q4h prn - Home verapamil ER 240 mg - Home statin - Restart home lisinopril 5 mg - Hold home ASA 325 mg - Continue home Lasix 20 mg - Telemetry - Echo EG 55% with normal motion LV Pulmonary - Goal SpO2 > 88% - Wean supplemental O2 as tolerated - CT with large right and moderate left pleural effusions - 08/07 R thora with 1250 ml serous fluid - Pathology with no malignant cells - IS - Acapella - Duonebs PRN - DC Right pigtail CT - Post pull CXR FEN/GI - Regular diet - Ensure TID - Follow up Nurse Orthopaedic recs - Zofran PRN - Bowel regimen: Miralax, Metamucil - Daily BMP, Mg, Phos - Consult colorectal for rectal prolapse - Follow up outpatient - BMP, mg, sarah q48h : - Estimated Creatinine Clearance: 26.9 mL/min (by C-G formula based on SCr of 0.98 mg/dL). # THOMAS - resolved - Monitor Heme: - Hgb stable - CBC q48h ID: - No antibiotics indicated Endo: - No acute issues Lines/Devices: - PIV Prophylaxis: DVT: SCDs, heparin 5000 units q12h Has DVT PPX been started? Yes If no, why? NA GI: NA Pressure Ulcer: monitor, q2h turns Musculoskeletal: - Keep splint c/d/I - Follow up outpatient with Dr. Carrillo - PT/OT - Recommending facility based therapy - LUE NWB, all other extremities WBAT Is the patient in restraints?: No Medications Reconciled- Yes [x] NO [] Disposition: Transfer 3W, 3N Associated attestation - Robert Mitchell MD - 08/10/2022 1:51 PM EDT ~~~~~~~~~~~~~~~~~~~~~~~~~~~~~~~~~ ~~~~~~~~~~~~~~~~~~~~~~~~~ Attending physician addendum: I independently saw and evaluated the patient. I personally obtained the singletary and critical portion of the history and physical exam. I reviewed and agree with the documentation below. I personally reviewed patient's labs and imaging studies. My findings agree with the below note except for any details corrected. I have examined the patient at the date below. Patient Active Problem List Diagnosis Intracranial hemorrhage (HCC) Debility Fall Acute pain due to trauma At risk for delirium I personally supervised the resident/GIS INSTRUCTOR/BELÉN in the evaluation and development of a treatment plan for this patient on the same day of service as below. I personally discussed the review of systems and interviewed the patient along with performing a physical examination. I reviewed the recent events, imaging, labs, vital signs. In addition, I discussed the patient's condition and treatment options with him/her when possible. I have also reviewed and agree with the past medical, family, and social history unless otherwise noted. All of the patient's questions were answered and family updated when appropriate and possible. A complete review of systems was obtained and is negative except as stated in HPI. Per Dr Garcia's note. Patient's reports minimal pain. Better PO intake, + BM. Albumin 2.6. Nutrition consult pending. Right chest tube 390 ml serous fluid down from 560 ml. Will remove Right chest tube, check post pull CXR, stop Oxycodone 5 mg, cont 2.5 mg PRN, restart home Lisinopril, hold home ASA, cont Lasix, statin and Verapamil, stop supplemental oxygen, cont regular diet with protein supplements, cont bowel regimen, follow up nutrition consult recommendation. PT/OT - facility based therapy. Stable for transfer to floor. Problem list: - R SDH - B/l SAH - R>L pleural effusions - L distal radius and ulna fx - Right pneumothorax - malnourishment Neuro/Spine: - Pain control: WILFREDO tylenol, PRN oxy 2.5 mg - DC oxy 5 mg PRN - Neurosurgery consulted - [facility] stable - Seizure ppx: none - Elevate HOB 30 degrees - Neuro checks q4h - Palliative consult - Geriatrics consult HEENT - No acute issues - Monitor left periorbital ecchymosis Cardiovascular - SBP goal <140 - Labetalol/hydralazine q4h prn - Home verapamil ER 240 mg - Home statin - Restart home lisinopril 5 mg - Hold home ASA 325 mg - Continue home Lasix 20 mg - Telemetry - Echo EG 55% with normal motion LV Pulmonary - Goal SpO2 > 88% - Wean supplemental O2 as tolerated - CT with large right and moderate left pleural effusions - 08/07 R thora with 1250 ml serous fluid - Pathology with no malignant cells - IS - Acapella - Duonebs PRN - DC Right pigtail CT - Post pull CXR FEN/GI - Regular diet - Ensure TID - Follow up Nurse Orthopaedic recs - Zofran PRN - Bowel regimen: Miralax, Metamucil - Daily BMP, Mg, Phos - Consult colorectal for rectal prolapse - Follow up outpatient - BMP, mg, sarah q48h : - Estimated Creatinine Clearance: 26.9 mL/min (by C-G formula based on SCr of 0.98 mg/dL). # THOMAS - resolved - Monitor Heme: - Hgb stable - CBC q48h ID: - No antibiotics indicated Endo: - No acute issues Lines/Devices: - PIV Prophylaxis: DVT: SCDs, heparin 5000 units q12h Has DVT PPX been started? Yes If no, why? NA GI: NA Pressure Ulcer: monitor, q2h turns Musculoskeletal: - Keep splint c/d/I - Follow up outpatient with Dr. Carrillo - PT/OT - Recommending facility based therapy - LUE NWB, all other extremities WBAT Is the patient in restraints?: No Medications Reconciled- Yes [x] NO [] Disposition: Transfer 3W, 3N Level of Medical Decision Making: risk of morbidity from additional diagnostic testing or treatment due to TBI, pneumothorax, malnutrition []High [x]Moderate []Low Personally Reviewed/Independently interpreted patient's: [x]Epic notes [x]Radiology studies []Labs []EKG []Ordering tests []Other Discussed/ With: [x]Patient/Family [x]RN []Consultants []SW/TCC []Other I spent total time of 35 minutes reviewing previous notes, test results, and face to face with Melanie Jimenez discussing the diagnosis and importance of compliance with the treatment plan as well as documenting on the day of the visit. Time was spent, Reviewing medical record including recent tests and results Ordering prescription medications/tests and procedures Communicating results to the patient/family/caregiver Counseling/educating the patient/family/caregiver Documenting clinical information the patient's electronic record Coordination of care for the patient Performing a medical appropriate exam and evaluation Arnaldo Mitchell MD [facility] Trauma, Surgical Critical Care, & General Surgery Division of Trauma Department of Surgery [facility]ly [facility] P Occupational Therapy Facility/Department: Room: [facility] Occupational Therapy Initial Evaluation NAME: Dayana Salamanca : 1935 Date of Service: 08/09/2022 Discharge Recommendations: Facility based therapy Assessment REQUIRES OT FOLLOW-UP: Yes Performance deficits / Impairments: Decreased functional mobility , Decreased safe awareness, Decreased balance, Decreased coordination, Decreased ADL status, Decreased posture, Decreased ROM, Decreased endurance, Decreased high-level IADLs, Decreased strength, Decreased cognition Assessment: Pt presents with the above deficits and requires min assist with transfers and functional mobility, and at least mod assist with ADL's. Pt is unsteady on her feet and is a fall risk. Pt lives alone and is currently unable to perform ADL's or IADL's independently. Pt would benefit from continued therapies to maximize potential. Recommend facility based therapies at discharge. Prognosis: Fair Decision Making: Medium Complexity Activity Tolerance Activity Tolerance: Patient limited by pain, Patient Tolerated treatment well Patient Diagnosis(es): The encounter diagnosis was Intracranial hemorrhage (HCC). has a past medical history of HTN (hypertension). has no past surgical history on file. Restrictions Restrictions/Precautions Restrictions/Precautions: Fall Risk, Weight Bearing Required Braces or Orthoses?: Yes (Left soft cast to left wrist) Upper Extremity Weight Bearing Restrictions Left Upper Extremity Weight Bearing: Non Weight Bearing Required Braces or Orthoses Left Upper Extremity Brace/Splint: splint Position Activity Restriction Other position/activity restrictions: PIV, tele, 2L O2 via NC, chest tube to suction Vision/Hearing Vision: (Pt wears reading glasses. Pt denies and blurred vision or diplopia. Tracks to all 4 quadrants.) Cognition/Orientation Overall Cognitive Status: WFL Overall Orientation Status: (Ox2 (person & time.....not place)) Subjective General Chart Reviewed: Yes Patient Assessed for Rehabilitation Services: Yes Family / Caregiver Present: No Diagnosis: Fall Left distal radius and ulna fx Subjective Subjective: Pt reclined in bedside chair. On 2L/O2 NC. (+)Chest tube to suction OK per RN to work with pt. Pt agreeable to OT. Left wrist soft cast/splint General Comments Comments: Pt presents S/P fall slip/trip on rug at home. Patient Stated Goal: To go home. Pain Assessment Pain Assessment: (Left wrist and Chest tube site 2.08/31) Social/Functional History Social/Functional History Lives With: Alone Type of Home: Trailer Home Layout: One level Home Access: Stairs to enter with rails Entrance Stairs - Number of Steps: 3 Entrance Stairs - Rails: Both Bathroom Shower/Tub: Tub/Shower unit Bathroom Toilet: Standard Home Equipment: (none) Receives Help From: Family ADL Assistance: Independent Homemaking Assistance: Independent Ambulation Assistance: Independent Transfer Assistance: Independent Additional Comments: Pt states she has one niece that lives 2 trailers down and a second niece that lives 5 trailers down. Indep with ADL's. Indep with cooking, cleaning, & laundry. Niece provides transportation to grocery store and MD appts. Amb with indep. Objective Strength: (Left UE NT; Right UE: 4/5) Coordination: (Left hand difficult to perform in cast; right hand WFL) Tone: Normal (Bilateral UE's) Sensation: (Pt denies any numbness & tingling in bilateral UE's. Intact to light touch.) Balance Sitting Balance: (Static sitting balance at edge of bedside chair with supervision.) Standing Balance: (Fair - Static standing balance with min assist. Slightly unsteady on her feet.) Functional Mobility Functional - Mobility Device: (Functional ambulation to/from toilet with min assist and [employer]. Pt unsteady on her feet and is a fall risk.) Toilet Transfers Equipment Used: Standard toilet Toilet Transfer: Minimal assistance (with right grab bar.) ADL Toileting: Stand by assistance Transfers Stand Step Transfers: Minimal assistance Sit to stand: Minimal assistance Stand to sit: Minimal assistance Transfer Comments: Verbal cues for hand placement with transfers, especially when sitting down, along with sequencing, and safety awareness. Sit to stand from bedside chair with min assist. LUE AROM (degrees) LUE AROM : (shoulder flex to 90, elbow flex~90, ext~WFL, wrist in cast, digits wiggle and able to flex to make a fist and extend fully.) RUE AROM (degrees) RUE AROM : (shoulder flex to 90, elbow distally WFL) Plan Times per Week: 3-5x/wk Plan Weeks: 4 weeks Current Treatment Recommendations: Strengthening, Endurance Training, Neuromuscular Re-education, Patient/Caregiver Education & Training, ROM, Cognitive Reorientation, Self-Care / ADL, Balance Training, Home Management Training, Cognitive/Perceptual Training, Functional Mobility Training, Safety Education & Training Safety Safety Devices in place: Yes Type of devices: All fall risk precautions in place, Nurse notified, No alarms engaged upon entry into room, Call light within reach, Patient at risk for falls, Left in chair Restraints Initially in place: No AM-PAC Score AM-PAC Inpatient Daily Activity Raw Score: 12 ADL Inpatient CMS G-Code Modifier: CL Goals Encounter Problems Encounter Problems (Active) Balance Static standing balance during unilateral UE task x 2-4 mins with supervision. Start: 08/09/22 Expected End: 09/06/22 Dressings Lower Extremities LE dressing using one-handed techniques with supervision. Start: 08/09/22 Expected End: 09/06/22 Transfers Toilet transfer with supervision. Start: 08/09/22 Expected End: 09/06/22 Education Education Given To: Patient Education Provided: OT Role, Plan of Care, Transfer Training Education Method: Verbal Barriers to Learning: None Education Outcome: Continued education needed, Verbalized understanding Therapy Time Individual Co-treatment Time In 1015 Time Out 1027 Minutes 12 Goals and/or treatment plan was established in collaboration with patient/family/other representatives. Patient's Occupational Therapy Plan of Care supervision is transferred to [facility] Occupational Therapist. This provider wore a surgical mask and gloves for the duration of the session with this pt. Dominga Davidson MS, OTR/L Physical Therapy Facility/Department: T2 Physical Therapy Initial Evaluation NAME: Daayna Salamanca : 1935 Date of Service: 08/09/2022 Discharge Recommendations: Facility based therapy PT Equipment Recommendations Equipment Needed: No Assessment Requires PT Follow-Up: Yes Assessment: 86 y.o. female admitted to [facility] for fall with SDH, SAH, and L distal ulna and radius fractures. She was Min A for all mobility, demo questionable safety awareness. Stated she would feel safer at home alone, however is at increased risk of falls. Would recommend facility based therapy at discharge for increased pt safety. Performance Deficits/Impairments: Decreased functional mobility , Decreased ADL status, Decreased ROM, Decreased strength, Decreased balance, Decreased posture, Decreased endurance, Decreased safe awareness Decision Making: Low Complexity Activity Tolerance Activity Tolerance: Patient limited by fatigue, Patient limited by endurance Patient Diagnosis(es): The encounter diagnosis was Intracranial hemorrhage (HCC). has a past medical history of HTN (hypertension). has no past surgical history on file. Restrictions Restrictions/Precautions Restrictions/Precautions: Fall Risk, General Precautions, Weight Bearing Required Braces or Orthoses?: Yes Upper Extremity Weight Bearing Restrictions Left Upper Extremity Weight Bearing: Non Weight Bearing Required Braces or Orthoses Left Upper Extremity Brace/Splint: splint Position Activity Restriction Other position/activity restrictions: PIV, tele, 2L O2 via NC, chest tube to suction Vision/Hearing Vision: Within Functional Limits Hearing: Functional/adequate for paticipation in therapy Cognition/Orientation Overall Cognitive Status: WFL Overall Orientation Status: Impaired ( hospital knew month and year, not day) Orientation Level: Oriented to person, Oriented to situation Subjective General Chart Reviewed: Yes Patient Assessed for Rehabilitation Services: Yes Response To Previous Treatment: Not applicable Family / Caregiver Present: No Diagnosis: fall, Fran SAH, R SDH, L distal radius and ulna fracture Subjective Subjective: pt seated in chair; pleasant and agreeable to PT session. Cleared by nursing. Patient Stated Goal: to get stronger and go home. Social/Functional History Social/Functional History Lives With: Alone Type of Home: Trailer Home Layout: One level Home Access: Stairs to enter with rails Entrance Stairs - Number of Steps: 3 Entrance Stairs - Rails: Both Bathroom Shower/Tub: Tub/Shower unit Home Equipment: (none) Receives Help From: Family ADL Assistance: Independent Homemaking Assistance: Independent Ambulation Assistance: Independent Transfer Assistance: Independent Additional Comments: Pt stated she has one niece 2 trailers down and another niece 5 trailers down. Stated that her niece drives here to the grocery store and to appointments. Objective AROM RLE (degrees) RLE AROM: WFL AROM LLE (degrees) LLE AROM : WFL Strength RLE Comment: 3+/5 Strength LLE Comment: 3+/5 Bed mobility Supine to Sit: Unable to assess Sit to Supine: Unable to assess Comment: pt in chair at beginning/end of session Transfers Sit to Stand: Minimal Assistance Stand to sit: Minimal Assistance Comment: chair x1, toilet x1. Cues for hand placement Ambulation Ambulation: Yes Ambulation 1 Surface 1: Level tile Device 1: Hand held assist Assistance 1: Minimum assistance Quality of Gait 1: instability throughout all phases, slow yoel, shuffling Quality of Gait Comment 1: narrow PEYTON, short step length, slow yoel, vocalized fear of falling again Distance (ft) 1: 10' + 10' Balance Posture: Fair Sitting - Static: Good Sitting - Dynamic: Good, - Standing - Static: Fair Standing - Dynamic: Fair Other exercises Other exercises?: Yes Other exercises 1: IS x5 to 500mL. SpO2 desat to 88%, nursing requested not to perform IS at this time Plan Times per Week: 3-5x Plan Weeks: 2 wks Current Treatment Recommendations: Strengthening, Balance Training, Gait Training, Functional Mobility Training, Transfer Training, ADL/Self-care Training, Endurance Training, Equipment Evaluation, Education, & procurement, Patient/Caregiver Education & Training, Safety Education & Training, Stair training, Home Exercise Program Safety Safety Devices Safety Devices in Place: Yes Type of Devices: All fall risk precautions in place, Call light within reach, Left in chair, Gait belt, Nurse notified, Patient at risk for falls Restraints Restraints Initially in Place: No AM-PAC Score AM-PAC Inpatient Mobility Raw Score: 17 Mobility Inpatient CMS G-Code Modifier: CK Goals Encounter Problems Encounter Problems (Active) Mobility Patient will ambulate 50 feet with modified independence and least restrictive device in order to improve safety and independence with mobility. Start: 08/09/22 Expected End: 08/23/22 Patient will ascend and descend 3 stairs with one railing and modified independence in order to safely negotiate home. Start: 08/09/22 Expected End: 08/23/22 Safety Patient will recall/demonstrate weight bearing and/or ROM restrictions with all functional mobility in order to promote healing and safety with functional tasks. Start: 08/09/22 Expected End: 08/23/22 Transfers Patient will perform bed mobility with modified independence in order to improve independence and prepare for out of bed mobility. Start: 08/09/22 Expected End: 08/23/22 Patient will complete functional transfer with least restrictive device with modified independence in order to prepare for ambulation. Start: 08/09/22 Expected End: 08/23/22 Education Education Given To: Patient Education Provided: PT Role, Plan of Care, Discharge recommendations, General Safety, Transfer Training Education Provided Comments: IS use, pursed lip breathing Education Method: Verbal Barriers to Learning: None Education Outcome: Verbalized understanding Therapy Time Individual Co-treatment Time In 1028 Time Out 1040 Minutes 12 Timed Code Treatment Minutes: (low eval) This therapist was wearing an appropriate mask, goggles, and gloves for entire patient encounter. Wandy Faith PT Images from the original note were not included. Daily Trauma Progress Note Resident 08/09/2022 6:18 AM Admit Date: 08/05/2022 Post Trauma Day 3 Fall Mechanical HISTORY OF TRAUMATIC EVENT: 86 y.o. female status post [facility]. The incident happened around 8AM on 08/05 at home. When the event happened the patient was walking at home when she tripped over her carpet and fell, hitting her left hand and face. She remembers the whole incident. Patient pain level currently is 5/10. Patient endorses 4 cigarette use for the past 10 years. INJURIES: - R SDH - B/l SAH - R>L pleural effusions - L distal radius and ulna fx PROCEDURES: 08/07 Right thoracentesis 08/08 Right chest tube INCIDENTAL FINDINGS: None CHIEF COMPLAINT: Left wrist pain PREVIOUS 24 HOUR EVENTS: Right chest tube placed for PTX. 70 ml serous fluid drained at time of insertion. Otherwise no acute events overnight. Consults: IP CONSULT TO NEUROSURGERY IP CONSULT TO ORTHOPAEDIC SURGERY IP CONSULT TO PALLIATIVE CARE IP CONSULT TO GERIATRICS MEDICATIONS: Current Facility-Administered Medications: acetaminophen (Tylenol) tablet 500 mg, 500 mg, Oral, q8h, Yolanda Garcia MD, 500 mg at 08/09/22 0532 atorvastatin (Lipitor) tablet 80 mg, 80 mg, Oral, Nightly, Yolanda Garcia MD, 80 mg at 08/08/222100 cholecalciferol (Vitamin D3) tablet 25 mcg, 25 mcg, Oral, Daily, Yolanda Gacria MD, 25 mcg at 08/08/22 0745 furosemide (Lasix) tablet 20 mg, 20 mg, Oral, Daily, Zac Renteria DO, 20 mg at 08/08/22 1658 heparin injection 5,000 Units, 5,000 Units, SubCUTAneous, 2 times per day, Zac Renteria DO, 5,000 Units at 08/08/222100 hydrALAZINE (Apresoline) injection 10 mg, 10 mg, IntraVENous, q4h PRN, Yolanda Garcia MD ipratropium-albuterol (Duo-Neb) 0.5-2.5 mg/3 mL nebulizer solution 3 mL, 3 mL, Nebulization, PRN, Rolan Noriega MD labetalol (Normodyne,Trandate) injection 10 mg, 10 mg, IntraVENous, q4h PRN, Yolanda Garcia MD, 10 mg at 08/08/22 0757 naloxone (Narcan) injection 0.4 mg, 0.4 mg, IntraVENous, PRN, Yolanda Garcia MD ondansetron ODT (Zofran-ODT) disintegrating tablet 4 mg, 4 mg, Oral, q8h PRN OR ondansetron (Zofran) injection 4 mg, 4 mg, IntraVENous, q6h PRN, Yolanda Garcia MD oxyCODONE (Roxicodone) immediate release tablet 2.5 mg, 2.5 mg, Oral, q4h PRN OR oxyCODONE (Roxicodone) immediate release tablet 5 mg, 5 mg, Oral, q4h PRN, Yolanda Garcia MD, 5 mg at 08/08/22 1327 perflutren lipid microspheres (Definity) injection 1.65 mg, 1.65 mg, IntraVENous, Once PRN, Yolanda Garcia MD polyethylene glycol (PEG) 3350 (Miralax) packet 17 g, 17 g, Oral, Daily, Yolanda Garcia MD, 17 g at 08/08/22 0746 psyllium (Metamucil) 58.12 % packet 3.4 g of fiber, 3.4 g of fiber, Oral, Daily, Yolanda Garcia MD, 3.4 g of fiber at 08/08/22 0746 verapamil SR (Calan SR) ER tablet 240 mg, 240 mg, Oral, Daily, Yolanda Garcia MD, 240 mg at 08/08/22 0745 ARE THERE PERTINENT UPDATES TO PAST,FAMILY, OR SOCIAL HISTORY?: No Subjective: Patient awake and alert. Comfortable in bed on 2 L NC. Has some improvement in shortness of breath and cough. Left wrist pain stable. Review of Systems Constitutional: Negative for chills and fever. HENT: Negative for nosebleeds. Eyes: Negative for pain. Respiratory: Positive for cough and shortness of breath. Cardiovascular: Negative for chest pain. Gastrointestinal: Negative for abdominal pain, nausea and vomiting. Endocrine: Negative for polyuria. Musculoskeletal: Negative for back pain and neck pain. Left wrist pain Skin: Negative for rash. Ecchymosis Neurological: Negative for headaches. Psychiatric/Behavioral: Negative for agitation. PC-PTSD-5 Had nightmares about the event(s) or thought about the event(s) when you did not want to? No 2. Tried hard not to think about the event(s) or went out of your way to avoid situations that reminded you of the event(s)? No 3. Been constantly on guard, watchful, or easily startled? No 4. [place] numb or detached from people, activities, or your surroundings? No 5. [place] guilty or unable to stop blaming yourself or others for the event(s) or any problems the event(s) may have caused? No If yes to or more, place CLP consult PHQ In the last 2 weeks have you had: Little interest or pleasure in doing things No Been feeling down, depressed, or hopeless No If greater then 0, place CLP consult Date PHQ completed: 08/06 Objective: Patient Vitals for the past 24 hrs: BP Temp Temp src Pulse Resp SpO2 08/09/22 0500 -- -- -- 88 20 96 % 08/09/22 0405 120/76 -- -- 106 22 95 % 08/09/22 0300 -- -- -- 96 25 95 % 08/09/22 0200 -- -- -- 110 23 94 % 08/09/22 0100 -- -- -- 90 18 97 % 08/09/22 0000 106/71 -- -- 98 18 98 % 08/08/22 2300 -- -- -- 93 13 99 % 08/08/22 2200 -- -- -- 75 19 99 % 08/08/22 2000 115/53 36.8 C (98.2 F) Temporal 60 22 100 % 08/08/22 1900 -- -- -- 63 21 100 % 08/08/22 1800 -- -- -- 73 19 99 % 08/08/22 1700 -- -- -- 102 21 99 % 08/08/22 1605 -- -- -- 102 -- -- 08/08/22 1600 -- -- -- 93 16 99 % 08/08/22 1300 -- -- -- 108 19 98 % 08/08/22 1157 -- -- -- 96 -- -- 08/08/22 1100 119/69 -- -- 101 23 100 % 08/08/22 1000 -- -- -- 84 20 100 % 08/08/22 0900 128/78 -- -- 104 23 100 % 08/08/22 0800 -- -- -- (!) 119 (!) 28 98 % 08/08/22 0741 (!) 148/122 -- -- -- -- -- Intake/Output Summary (Last 24 hours) at 08/09/2022 0618 Last data filed at 08/08/2022 1800 Gross per 24 hour Intake 600 ml Output 460 ml Net 140 ml No intake/output data recorded. Last BM: 08/07 Diet: Regular diet CVP: No Chest Tubes: R: Yes to suction. Output: 560 serous fluid L: No PHYSICAL: Physical Exam Constitutional: General: She is not in acute distress. HENT: Head: Normocephalic and atraumatic. Mouth/Throat: Mouth: Mucous membranes are moist. Eyes: Conjunctiva/sclera: Conjunctivae normal. Comments: Left periorbital ecchymosis improving Cardiovascular: Rate and Rhythm: Normal rate and regular rhythm. Pulses: Normal pulses. Heart sounds: Normal heart sounds. No murmur heard. Pulmonary: Effort: Pulmonary effort is normal. No respiratory distress. Breath sounds: Rales (B/l bases) present. No wheezing or rhonchi. Comments: NC. Right chest tube with no air leak Abdominal: Palpations: Abdomen is soft. Tenderness: There is no abdominal tenderness. There is no guarding or rebound. Musculoskeletal: Right lower leg: No edema. Left lower leg: No edema. Comments: LUE in splint Skin: General: Skin is warm and dry. Neurological: Mental Status: She is alert and oriented to person, place, and time. Sensory: No sensory deficit. Motor: No weakness. Psychiatric: Mood and Affect: Mood normal. Behavior: Behavior normal. Sutures or shayne? No O2: NC / / /FiO2 (%): 28 % Data Review Data CBC with Differential: Lab Results Component Value Date WBC 12.8 (H) 08/09/2022 RBC 3.97 08/09/2022 HGB 11.8 08/09/2022 HCT 35.0 08/09/2022 PLT 271 08/09/2022 CMP: Lab Results Component Value Date NA 132 (L) 08/09/2022 K 4.6 08/09/2022 CL 105 08/09/2022 CO2 25 08/09/2022 BUN 21 (H) 08/09/2022 CREATININE 0.98 08/09/2022 GLUCOSE 98 08/09/2022 CALCIUM 7.9 (L) 08/09/2022 BMP: Hepatic Function Panel:Ionized Calcium: No components found for: IONCA Magnesium: Lab Results Component Value Date MG 2.1 08/09/2022 Phosphorus: Lab Results Component Value Date PHOS 3.2 08/09/2022 PT/INR: No results found for: PROTIME, INR PTT: No results found for: APTT[APTT Last 3 Troponin: No results found for: TROPONINI Urine Culture: No components found for: CURINE Blood Culture: No components found for: CBLOOD, CFUNGUSBL Blood Culture from Central Line: No components found for: CBLOODLN Stool Culture: No components found for: CSTOOL Sputum Culture: No components found for: CSPUTUM Sputum Culture for AFB: No components found for: CAFBSM Wound Culture: Radiology: CXR 08/09: Findings: Frontal chest view shows bilateral basilar infiltrates/atelectasis and bilateral pleural effusions, not significantly changed from last exam. Both lungs show otherwise interstitial prominence with mild congestion. The heart is borderline enlarged. There are atherosclerotic calcifications. Right chest tube is similar to prior. There is no mediastinal widening, pneumothorax, or other significant interval change. CT head 08/08: FINDINGS: Redemonstration of an acute subdural hemorrhage along the right cerebral convexity, similar to prior measuring thickness of approximately 6 mm. No significant right to left midline shift. There is regional sulcal effacement. Redemonstration of small focus of subarachnoid hemorrhage within the left frontal lobe sulcus, unchanged. Trace subdural hemorrhage along the right falx measuring up to 3 mm in thickness, more conspicuous as compared to the prior exam. Small foci of subarachnoid hemorrhage within the high right parietal lobe near the vertex. No hydrocephalus. Ventricles are stable in size and configuration. Scattered foci of hypoattenuation in the cerebral white matter are nonspecific but most compatible with microangiopathy. No CT evidence of acute large territorial infarct. Atherosclerotic vascular calcifications visualized at the skull base. Imaged portions of the paranasal sinuses and mastoid air cells are well aerated. No depressed calvarial fracture. Bilateral lens replacements. IMPRESSION: Redemonstration of an acute subdural hemorrhage along the right cerebral convexity and falx small foci of subarachnoid hemorrhage within the left frontal lobe and high right parietal lobe near the vertex, similar to prior. No definite new intracranial hemorrhage is seen. ECG 12 lead Result Date: 08/06/2022 Atrial fibrillation LVH with secondary repolarization abnormality Inferior infarct, old Anterior infarct, old ECG 12 lead Result Date: 08/05/2022 Atrial fibrillation LVH with secondary repolarization abnormality Inferior infarct, old Anterior infarct, old Electrocardiogram, 12-lead Result Date: 08/05/2022 Atrial fibrillation LVH with secondary repolarization abnormality Inferior infarct, old Anterior infarct, acute Prolonged QT interval Patient Active Problem List Diagnosis Intracranial hemorrhage (HCC) Debility Fall Acute pain due to trauma At risk for delirium ASSESSMENT: 86F s/p mechanical ground level fall found to have the following traumatic injuries: - R SDH - B/l SAH - R>L pleural effusions - L distal radius and ulna fx PLAN: Neuro/Spine: - Pain control: WILFREDO tylenol, PRN oxy - Neurosurgery consulted - rCTH stable - Seizure ppx: none - Elevate HOB 30 degrees - Neuro checks q4h - Palliative consult - Geriatrics consult HEENT - No acute issues - Monitor left periorbital ecchymosis Cardiovascular - SBP goal <140 - Labetalol/hydralazine q4h prn - Home verapamil ER 240 mg - Home statin - Hold home lisinopril 5 mg, ASA 325 mg - Continue home Lasix 20 mg - Telemetry - ECG - a-fib - Trop neg - Echo EG 55% with normal motion LV Pulmonary - Goal SpO2 > 88% - Wean supplemental O2 as tolerated - CT with large right and moderate left pleural effusions - 08/07 R thora with 1250 ml serous fluid - Pathology pending - IS - Acapella - Duonebs PRN - Place right pigtail CT to water seal - Daily CXR FEN/GI - Regular diet - Zofran PRN - Bowel regimen: Miralax, Metamucil - Daily BMP, Mg, Phos - Start Ensure TID - LFTs - Consult railway yard assistant - Consult colorectal for rectal prolapse - Follow up outpatient - BMP, mg, sarah q48h : - Estimated Creatinine Clearance: 26.9 mL/min (by C-G formula based on SCr of 0.98 mg/dL). # THOMAS - resolved - Cr 0.98 (1.02) - Monitor Heme: - Hgb stable - CBC q48h ID: - WBC 12.8 (13.9)- Afebrile - Monitor - No antibiotics indicated Endo: - No acute issues Lines/Devices: - PIV Prophylaxis: DVT: SCDs, heparin 5000 units q12h Has DVT PPX been started? Yes If no, why? NA GI: DC Pepcid Pressure Ulcer: monitor, q2h turns Musculoskeletal: - Keep splint c/d/I - Follow up outpatient with Dr. Carrillo - PT/OT - DIANE NWB, all other extremities WBAT Is the patient in restraints?: No Medications Reconciled- Yes [x] NO [] Disposition: Transfer 3W, 3N Associated attestation - Robert Mitchell MD - 08/10/2022 1:41 PM EDT ~~~~~~~~~~~~~~~~~~~~~~~~~~~~~~~~~ ~~~~~~~~~~~~~~~~~~~~~~~~~ Attending physician addendum: I independently saw and evaluated the patient. I personally obtained the singletary and critical portion of the history and physical exam. I reviewed and agree with the documentation below. I personally reviewed patient's labs and imaging studies. My findings agree with the below note except for any details corrected. I have examined the patient at the date below. Patient Active Problem List Diagnosis Intracranial hemorrhage (HCC) Debility Fall Acute pain due to trauma At risk for delirium I personally supervised the resident/GIS INSTRUCTOR/BELÉN in the evaluation and development of a treatment plan for this patient on the same day of service as below. I personally discussed the review of systems and interviewed the patient along with performing a physical examination. I reviewed the recent events, imaging, labs, vital signs. In addition, I discussed the patient's condition and treatment options with him/her when possible. I have also reviewed and agree with the past medical, family, and social history unless otherwise noted. All of the patient's questions were answered and family updated when appropriate and possible. A complete review of systems was obtained and is negative except as stated in HPI. Per Dr Garcia's note. Patient reports minimal on Right chest tube insertion site. Tolerates some diet. Repeat head CT - stable SDHs and SAHs. A-fib RVR up to 110s. Chest tube - 560 ml serous fluid over 24h. Pathology results- benign mesothelial cells. Patient with BMI of 17. Will place chest tube on water seal, start protein supplements, consult nutrition, check LFTs and prealbumin, reschedule labs to q48h, HSQ 5000 BID given creatinine clearance and patient's weight. Hold home Lisinopril and ASA, cont home Laxis, statin and Verapamil, cont chest tube. Stable for transfer to 3W/3N Problem list: 86F s/p mechanical ground level fall found to have the following traumatic injuries: - R SDH - B/l SAH - R>L pleural effusions - L distal radius and ulna fx - Right pneumothorax - malnourishment Neuro/Spine: - Pain control: WILFREDO tylenol, PRN oxy - Neurosurgery consulted - [facility] stable - Seizure ppx: none - Elevate HOB 30 degrees - Neuro checks q4h - Palliative consult - Geriatrics consult HEENT - No acute issues - Monitor left periorbital ecchymosis Cardiovascular - SBP goal <140 - Labetalol/hydralazine q4h prn - Home verapamil ER 240 mg - Home statin - Hold home lisinopril 5 mg, ASA 325 mg - Continue home Lasix 20 mg - Telemetry - ECG - a-fib - Trop neg - Echo EG 55% with normal motion LV Pulmonary - Goal SpO2 > 88% - Wean supplemental O2 as tolerated - CT with large right and moderate left pleural effusions - 08/07 R thora with 1250 ml serous fluid - Pathology pending - IS - Acapella - Duonebs PRN - Place right pigtail CT to water seal - Daily CXR FEN/GI - Regular diet - Zofran PRN - Bowel regimen: Miralax, Metamucil - Daily BMP, Mg, Phos - Start Ensure TID - LFTs - Consult railway yard assistant - Consult colorectal for rectal prolapse - Follow up outpatient - BMP, mg, sarah q48h : - Estimated Creatinine Clearance: 26.9 mL/min (by C-G formula based on SCr of 0.98 mg/dL). # THOMAS - resolved - Cr 0.98 (1.02) - Monitor Heme: - Hgb stable - CBC q48h ID: - WBC 12.8 (13.9)- Afebrile - Monitor - No antibiotics indicated Endo: - No acute issues Lines/Devices: - PIV Prophylaxis: DVT: SCDs, heparin 5000 units q12h Has DVT PPX been started? Yes If no, why? NA GI: DC Pepcid Pressure Ulcer: monitor, q2h turns Musculoskeletal: - Keep splint c/d/I - Follow up outpatient with Dr. Carrillo - PT/OT - LUE NWB, all other extremities WBAT Is the patient in restraints?: No Medications Reconciled- Yes [x] NO [] Disposition: Transfer 3W, 3N Level of Medical Decision Making: risk of morbidity from additional diagnostic testing or treatment due to TBI, pneumothorax, chronic pleural effusions, rectal prolaps, malnurishment [x]High []Moderate []Low Personally Reviewed/Independently interpreted patient's: [x]Epic notes [x]Radiology studies [x]Labs []EKG []Ordering tests []Other Discussed/ With: [x]Patient/Family [x]RN []Consultants []SW/TCC []Other I spent total time of 50 minutes reviewing previous notes, test results, and face to face with Melanie Jimenez discussing the diagnosis and importance of compliance with the treatment plan as well as documenting on the day of the visit. Time was spent, Reviewing medical record including recent tests and results Ordering prescription medications/tests and procedures Communicating results to the patient/family/caregiver Counseling/educating the patient/family/caregiver Documenting clinical information the patient's electronic record Coordination of care for the patient Performing a medical appropriate exam and evaluation Arnaldo Mitchell MD [facility] Trauma, Surgical Critical Care, & General Surgery Division of Trauma Department of Surgery [facility] P Physical Therapy Patient currently having chest tube place. PT evaluation held. No residual rectal prolapse. Patient denies any abdominal pain or blood per rectum. Has not had a BM since her episode prior, but is passing flatus. If patient has rectal prolapse recurrence, please reduce it. No acute surgical intervention unless it is not able to be reduced by non-operative means. Colorectal surgery outpatient follow up provided. Jesse Milian MD General Surgery, PGY-5 08/08/2022 12:21 PM Images from the original note were not included. Daily Trauma Progress Note Resident 08/08/2022 7:35 AM Admit Date: 08/05/2022 Post Trauma Day 3 Fall Mechanical HISTORY OF TRAUMATIC EVENT: 86 y.o. female status post [facility]. The incident happened around 8AM on 08/05 at home. When the event happened the patient was walking at home when she tripped over her carpet and fell, hitting her left hand and face. She remembers the whole incident. Patient pain level currently is 5/10. Patient endorses 4 cigarette use for the past 10 years. INJURIES: - R SDH - B/l SAH - R>L pleural effusions - L distal radius and ulna fx PROCEDURES: 08/07 Right thoracentesis INCIDENTAL FINDINGS: None CHIEF COMPLAINT: Left wrist pain PREVIOUS 24 HOUR EVENTS: Yesterday AM prolapsed rectum when having a BM. Has no hx of rectal prolapse. Reduced at bedside. Thoracentesis right lung with 1250 ml serous fluid removed. Overnight had episode of Afib RVR but was asymptomatic. Received Lopressor with cessation of arrhythmia. Consults: IP CONSULT TO NEUROSURGERY IP CONSULT TO ORTHOPAEDIC SURGERY IP CONSULT TO PALLIATIVE CARE IP CONSULT TO GERIATRICS MEDICATIONS: Current Facility-Administered Medications: acetaminophen (Tylenol) tablet 500 mg, 500 mg, Oral, q8h, Yolanda Garcia MD, 500 mg at 08/08/22 0613 atorvastatin (Lipitor) tablet 80 mg, 80 mg, Oral, Nightly, Yolanda Garcia MD, 80 mg at 08/07/22 2104 cholecalciferol (Vitamin D3) tablet 25 mcg, 25 mcg, Oral, Daily, Yolanda Garcia MD, 25 mcg at 08/07/22 0809 hydrALAZINE (Apresoline) injection 10 mg, 10 mg, IntraVENous, q4h PRN, Yolanda Garcia MD ipratropium-albuterol (Duo-Neb) 0.5-2.5 mg/3 mL nebulizer solution 3 mL, 3 mL, Nebulization, PRN, Rolan Noriega MD labetalol (Normodyne,Trandate) injection 10 mg, 10 mg, IntraVENous, q4h PRN, Yolanda Garcia MD, 10 mg at 08/07/22 1307 naloxone (Narcan) injection 0.4 mg, 0.4 mg, IntraVENous, PRN, Yolanda Garcia MD ondansetron ODT (Zofran-ODT) disintegrating tablet 4 mg, 4 mg, Oral, q8h PRN OR ondansetron (Zofran) injection 4 mg, 4 mg, IntraVENous, q6h PRN, Yolanda Garcia MD oxyCODONE (Roxicodone) immediate release tablet 2.5 mg, 2.5 mg, Oral, q4h PRN OR oxyCODONE (Roxicodone) immediate release tablet 5 mg, 5 mg, Oral, q4h PRN, Yolanda Garcia MD perflutren lipid microspheres (Definity) injection 1.65 mg, 1.65 mg, IntraVENous, Once PRN, Yolanda Garcia MD polyethylene glycol (PEG) 3350 (Miralax) packet 17 g, 17 g, Oral, Daily, Yolanda Garcia MD, 17 g at 08/07/22 1002 psyllium (Metamucil) 58.12 % packet 3.4 g of fiber, 3.4 g of fiber, Oral, Daily, Yolanda Garcia MD verapamil SR (Calan SR) ER tablet 240 mg, 240 mg, Oral, Daily, Yolanda Garcia MD, 240 mg at 08/07/22 0809 ARE THERE PERTINENT UPDATES TO PAST,FAMILY, OR SOCIAL HISTORY?: No Subjective: Patient awake and alert. Comfortable in bed on 2 L NC. Has some improvement in shortness of breath and cough. Left wrist pain stable. Review of Systems Constitutional: Negative for chills and fever. HENT: Negative for nosebleeds. Eyes: Negative for pain. Respiratory: Positive for cough. Negative for shortness of breath. Cardiovascular: Negative for chest pain. Gastrointestinal: Negative for abdominal pain, nausea and vomiting. Endocrine: Negative for polyuria. Musculoskeletal: Negative for back pain and neck pain. Left wrist pain Skin: Negative for rash. Ecchymosis Neurological: Negative for headaches. Psychiatric/Behavioral: Negative for agitation. PC-PTSD-5 Had nightmares about the event(s) or thought about the event(s) when you did not want to? No 2. Tried hard not to think about the event(s) or went out of your way to avoid situations that reminded you of the event(s)? No 3. Been constantly on guard, watchful, or easily startled? No 4. [place] numb or detached from people, activities, or your surroundings? No 5. [place] guilty or unable to stop blaming yourself or others for the event(s) or any problems the event(s) may have caused? No If yes to or more, place CLP consult PHQ In the last 2 weeks have you had: Little interest or pleasure in doing things No Been feeling down, depressed, or hopeless No If greater then 0, place CLP consult Date PHQ completed: 08/06 Objective: Patient Vitals for the past 24 hrs: BP Temp Temp src Pulse Resp SpO2 Height 08/08/22 0500 -- -- -- 106 23 100 % -- 08/08/22 0400 124/64 36.4 C (97.6 F) -- 106 22 99 % -- 08/08/22 0300 -- -- -- (!) 116 (!) 30 99 % -- 08/08/22 0200 -- -- -- 97 17 97 % -- 08/08/22 0100 -- -- -- 96 21 95 % -- 08/08/22 0000 139/79 -- -- 109 21 96 % -- 08/07/22 2230 135/78 -- -- 110 25 98 % -- 08/07/22 2200 (!) 157/145 -- -- 108 23 100 % -- 08/07/22 2110 (!) 141/99 -- -- 108 21 -- -- 08/07/22 1900 129/89 -- -- 105 19 100 % -- 08/07/22 1800 125/63 -- -- 86 20 100 % -- 08/07/22 1700 139/68 -- -- 96 21 100 % -- 08/07/22 1600 (!) 102/92 36.7 C (98 F) -- 102 22 99 % -- 08/07/22 1500 128/80 -- -- 82 19 100 % -- 08/07/22 1445 (!) 135/103 -- -- 91 20 93 % -- 08/07/22 1430 124/70 -- -- 77 22 100 % -- 08/07/22 1415 107/71 -- -- 86 20 99 % -- 08/07/22 1400 129/63 -- -- 85 22 98 % -- 08/07/22 1345 -- -- -- 106 (!) 27 100 % -- 08/07/22 1330 136/77 -- -- 96 (!) 27 98 % -- 08/07/22 1315 131/80 -- -- 88 24 92 % -- 08/07/22 1300 (!) 169/104 -- -- (!) 120 (!) 28 97 % -- 08/07/22 1208 -- -- -- 92 24 93 % -- 08/07/22 1200 (!) 141/69 -- -- 84 23 90 % -- 08/07/22 1100 119/67 -- -- 67 20 92 % -- 08/07/22 1015 128/68 -- -- 82 20 90 % -- 08/07/22 1007 -- -- -- -- -- -- 1.524 m (5') 08/07/22 1000 131/76 -- -- 86 26 (!) 89 % -- 08/07/22 0945 (!) 128/112 -- -- 86 23 (!) 88 % -- 08/07/22 0930 (!) 127/98 -- -- 86 24 94 % -- 08/07/22 0900 -- -- -- 80 26 90 % -- 08/07/22 0845 121/72 -- -- 101 13 99 % -- 08/07/22 0844 -- -- -- 89 21 99 % -- 08/07/22 0830 127/84 -- -- 80 22 95 % -- 08/07/22 0815 -- -- -- 110 (!) 27 97 % -- 08/07/22 0800 (!) 167/93 36.7 C (98 F) Temporal 96 (!) 28 94 % -- Intake/Output Summary (Last 24 hours) at 08/08/2022 0735 Last data filed at 08/07/2022 1400 Gross per 24 hour Intake -- Output 1250 ml Net -1250 ml No intake/output data recorded. Last BM: 08/07 Diet: Regular diet CVP: No Chest Tubes: R: No L: No PHYSICAL: Physical Exam Constitutional: General: She is not in acute distress. HENT: Head: Normocephalic and atraumatic. Mouth/Throat: Mouth: Mucous membranes are moist. Eyes: Conjunctiva/sclera: Conjunctivae normal. Comments: Left periorbital ecchymosis Cardiovascular: Rate and Rhythm: Normal rate and regular rhythm. Pulses: Normal pulses. Heart sounds: Normal heart sounds. No murmur heard. Pulmonary: Effort: Pulmonary effort is normal. No respiratory distress. Breath sounds: Rales present. No wheezing or rhonchi. Comments: NC. Decreased breath sounds b/l Abdominal: Palpations: Abdomen is soft. Tenderness: There is no abdominal tenderness. There is no guarding or rebound. Musculoskeletal: Right lower leg: No edema. Left lower leg: No edema. Skin: General: Skin is warm and dry. Neurological: Mental Status: She is alert and oriented to person, place, and time. Sensory: No sensory deficit. Motor: No weakness. Psychiatric: Mood and Affect: Mood normal. Behavior: Behavior normal. Sutures or shayne? No O2: NC / / /FiO2 (%): 28 % Data Review Data CBC with Differential: Lab Results Component Value Date WBC 13.9 (H) 08/08/2022 RBC 4.12 08/08/2022 HGB 12.3 08/08/2022 HCT 36.6 08/08/2022 PLT 260 08/08/2022 CMP: Lab Results Component Value Date NA 135 08/08/2022 K 4.4 08/08/2022 CL 107 08/08/2022 CO2 25 08/08/2022 BUN 16 08/08/2022 CREATININE 1.02 08/08/2022 GLUCOSE 105 (H) 08/08/2022 CALCIUM 8.5 08/08/2022 BMP: Hepatic Function Panel:Ionized Calcium: No components found for: IONCA Magnesium: Lab Results Component Value Date MG 2.0 08/08/2022 Phosphorus: Lab Results Component Value Date PHOS 3.4 08/08/2022 PT/INR: No results found for: PROTIME, INR PTT: No results found for: APTT[APTT Last 3 Troponin: Lab Results Component Value Date TROPONINI <0.012 08/05/2022 Urine Culture: No components found for: CURINE Blood Culture: No components found for: CBLOOD, CFUNGUSBL Blood Culture from Central Line: No components found for: CBLOODLN Stool Culture: No components found for: CSTOOL Sputum Culture: No components found for: CSPUTUM Sputum Culture for AFB: No components found for: CAFBSM Wound Culture: Radiology: ECG 12 lead Result Date: 08/06/2022 Atrial fibrillation LVH with secondary repolarization abnormality Inferior infarct, old Anterior infarct, old ECG 12 lead Result Date: 08/05/2022 Atrial fibrillation LVH with secondary repolarization abnormality Inferior infarct, old Anterior infarct, old Electrocardiogram, 12-lead Result Date: 08/05/2022 Atrial fibrillation LVH with secondary repolarization abnormality Inferior infarct, old Anterior infarct, acute Prolonged QT interval Patient Active Problem List Diagnosis Intracranial hemorrhage (HCC) Debility Fall Acute pain due to trauma At risk for delirium ASSESSMENT: 86F s/p mechanical ground level fall found to have the following traumatic injuries: - R SDH - B/l SAH - R>L pleural effusions - L distal radius and ulna fx PLAN: Neuro/Spine: - Pain control: WILFREDO tylenol, PRN oxy - Neurosurgery consulted - [facility] stable - Seizure ppx: none - Elevate HOB 30 degrees - Neuro checks q4h - Palliative consult - Geriatrics consult - Repeat CT head today HEENT - No acute issues - Monitor left periorbital ecchymosis Cardiovascular - SBP goal <140 - Labetalol/hydralazine q4h prn - Home verapamil ER 240 mg - Home statin - Hold home lisinopril 5 mg, ASA 325 mg - Restart home Lasix 20 mg - Telemetry - ECG - a-fib - Trop neg - Echo EG 55% with normal motion LV Pulmonary - Goal SpO2 > 88% - Wean supplemental O2 as tolerated - CT with large right and moderate left pleural effusions - 08/07 R thora with 1250 ml serous fluid - Pathology pending - IS - Acapella - Duonebs PRN - CXR with right PTX - Place right pigtail CT FEN/GI - Regular diet - Zofran PRN - Bowel regimen: Miralax, Metamucil - Daily BMP, Mg, Phos - Consult colorectal for rectal prolapse : - Estimated Creatinine Clearance: 25.8 mL/min (by C-G formula based on SCr of 1.02 mg/dL). # THOMAS - Cr 1.02 (1.1) - Monitor Heme: - Hgb stable - Daily CBC ID: - WBC 13.9 (12.7) - Afebrile - Monitor - No antibiotics indicated Endo: - No acute issues Lines/Devices: - PIV Prophylaxis: DVT: SCDs, Start heparin 5000 units q12h Has DVT PPX been started? Yes If no, why? NA GI: DC Pepcid Pressure Ulcer: monitor, q2h turns Musculoskeletal: - Keep splint c/d/I - Follow up outpatient with Dr. Carrillo - PT/OT - LUE NWB, all other extremities WBAT Is the patient in restraints?: No Medications Reconciled- Yes [x] NO [] Disposition: Transfer 3W, 3N Associated attestation - Robert Mitchell MD - 08/08/2022 9:54 PM EDT ~~~~~~~~~~~~~~~~~~~~~~~~~~~~~~~~~ ~~~~~~~~~~~~~~~~~~~~~~~~~ Attending physician addendum: I independently saw and evaluated the patient. I personally obtained the singletary and critical portion of the history and physical exam. I reviewed and agree with the documentation below. I personally reviewed patient's labs and imaging studies. My findings agree with the below note except for any details corrected. I have examined the patient at the date below. Patient Active Problem List Diagnosis Intracranial hemorrhage (HCC) Debility Fall Acute pain due to trauma At risk for delirium I personally supervised the resident/GIS INSTRUCTOR/BELÉN in the evaluation and development of a treatment plan for this patient on the same day of service as below. I personally discussed the review of systems and interviewed the patient along with performing a physical examination. I reviewed the recent events, imaging, labs, vital signs. In addition, I discussed the patient's condition and treatment options with him/her when possible. I have also reviewed and agree with the past medical, family, and social history unless otherwise noted. All of the patient's questions were answered and family updated when appropriate and possible. A complete review of systems was obtained and is negative except as stated in HPI. Per Dr Garcia's note. Patient denies headache, I feel fine . Yesterday patient underwent Right IR thoracentesis. This AM CXR shows Right pneumothorax. Rectal prolaps following BM reduced by the bedside, colorectal surgery evaluation pending. Patient with history of a-fib, had an episode of supraventricular tachycardia.Will start HSQ 5000 q12h given patient CrCl(26) and weight (41 kg) - dose discussed with clinical pharmacy, stop GI prophylaxis, cont Verapamil, shold home Lisinopril, restart home Lasix. Place Right chest small bore chest tube, place on suction, re-check CXR Problem list: 86F s/p mechanical ground level fall found to have the following traumatic injuries: - R SDH - B/l SAH - R>L pleural effusions - L distal radius and ulna fx - Right pneumothorax Neuro/Spine: - Pain control: WILFREDO tylenol, PRN oxy - Neurosurgery consulted - [facility] stable - Seizure ppx: none - Elevate HOB 30 degrees - Neuro checks q4h - Palliative consult - Geriatrics consult - Repeat CT head today HEENT - No acute issues - Monitor left periorbital ecchymosis Cardiovascular - SBP goal <140 - Labetalol/hydralazine q4h prn - Home verapamil ER 240 mg - Home statin - Hold home lisinopril 5 mg, ASA 325 mg - Restart home Lasix 20 mg - Telemetry - ECG - a-fib - Trop neg - Echo EG 55% with normal motion LV Pulmonary - Goal SpO2 > 88% - Wean supplemental O2 as tolerated - CT with large right and moderate left pleural effusions - 08/07 R thora with 1250 ml serous fluid - Pathology pending - IS - Acapella - Duonebs PRN - CXR with right PTX - Place right pigtail CT FEN/GI - Regular diet - Zofran PRN - Bowel regimen: Miralax, Metamucil - Daily BMP, Mg, Phos - Consult colorectal for rectal prolapse : - Estimated Creatinine Clearance: 25.8 mL/min (by C-G formula based on SCr of 1.02 mg/dL). # THOMAS - Cr 1.02 (1.1) - Monitor Heme: - Hgb stable - Daily CBC ID: - WBC 13.9 (12.7) - Afebrile - Monitor - No antibiotics indicated Endo: - No acute issues Lines/Devices: - PIV Prophylaxis: DVT: SCDs, Start heparin 5000 units q12h Has DVT PPX been started? Yes If no, why? NA GI: DC Pepcid Pressure Ulcer: monitor, q2h turns Musculoskeletal: - Keep splint c/d/I - Follow up outpatient with Dr. Carrillo - PT/OT - DIANE NWB, all other extremities WBAT Is the patient in restraints?: No Medications Reconciled- Yes [x] NO [] Disposition: Transfer 3W, 3N Level of Medical Decision Making: risk of morbidity from additional diagnostic testing or treatment due to TBI, pneumothorax, rectal prolaps []High [x]Moderate []Low Personally Reviewed/Independently interpreted patient's: [x]Epic notes [x]Radiology studies [x]Labs []EKG []Ordering tests []Other Discussed/ With: [x]Patient/Family [x]RN []Consultants []SW/TCC []Other I spent total time of 50 minutes reviewing previous notes, test results, and face to face with Melanie Jimenez discussing the diagnosis and importance of compliance with the treatment plan as well as documenting on the day of the visit. Time was spent, Reviewing medical record including recent tests and results Ordering prescription medications/tests and procedures Communicating results to the patient/family/caregiver Counseling/educating the patient/family/caregiver Documenting clinical information the patient's electronic record Coordination of care for the patient Performing a medical appropriate exam and evaluation Arnaldo Mitchell MD FACS Trauma, Surgical Critical Care, & General Surgery Division of Trauma Department of Surgery [facility] P Nutrition Assessment Type and Reason for Visit: Initial (ICU Screen) Nutrition Recommendations/Plan: Continue current diet & encourage po intake. Per MNT: Ensure Compact BID (4oz, 220kcal, 9gm protein) and Magic Cup daily (4oz, 290kcal, 9gm protein) to supplement intake. Recommend record po intake in I/O flowsheet to monitor. RD will follow weekly. Malnutrition Assessment: Malnutrition Status: At risk for malnutrition (Comment) (Pt reports low appetite) Context: Chronic Illness Findings of the 6 clinical characteristics of malnutrition: Energy Intake: Mild decrease in energy intake (Comment) Weight Loss: (possible weight loss, but pt reports great fluctuations in weight, difficult to clarify) Body Fat Loss: (? chronic due to advanced age vs. acute) Buccal region, Orbital Muscle Mass Loss: (? chronic due to advanced age vs. acute) Temples (temporalis), Thigh (quadraceps), Scapula (trapezius) Fluid Accumulation: Mild Lead Systems Analyst Strength: Not Performed Nutrition Assessment: Pt admitted 08/05 after a mechanical fall. Found to have traumatic acute SDH and SAH; bilateral pleural effusions; and left distal radius with associated distal ulna fracture. PMH includes HTN. Labs: Cr elevated 1.10, Calcium low 7.9, elevated BNP. Medications reviewed. Ortho performed closed reduction of L distal radius 08/06. Neurosurgery following - no surgical intervention @ this time. AREA FORESTER completed swallow eval 08/06 with recommendations for Regular/Thin. Plan for thoracentesis today. Plan for Colorectal eval tomorrow for rectal prolapse. Pt reports low appetite without N/V/abd pain. Denies chew/swallow difficulty. Reports UBW to be between 77-90#. When asked for more recent CBW, pt reports she weighs herself about every other week and it is 77-88#. Reports her weight on the day of her son's was 114#. Pt states she grocery shops and prepares her own meals. When asked about variation in po intake (that may cause her fluctuation in weight), pt states she might have variation, but doesn't notice. Willing to receive Vanilla Ensure during admission. RD encouraged pt to have ONS on hand at home as well to encourage stabilized weight. Estimated Daily Nutrient Needs: Energy Requirements Based On: Kcal/kg Weight Used for Energy Requirements: Current Weight for Energy Calculation (kg): 41.3 kg Total Energy Requirements (kcals/day): 28-32 kcal/kg = 3922-4127 kcal Weight Used for Protein Requirements: Current Weight in Kg Used for Protein Requirements: 41.3 kg Estimated Total Protein (g/day): 1.1-1.3 gm/kg = 45-54 gm Estimated Daily Total Fluid (ml/day): per MD recommendations Nutrition Related Findings: +I/O, trace LUE edema, Librado 20, hypoactive BS, BM 08/05 Wound Type: Skin Tears (L elbow skin tear) Current Nutrition Therapies: Adult diet Regular; No Added Salt (3-4 gm) Current Oral Intake Average Meal Intake: 26-50% (x 1 recorded meal 08/06) Average Supplements Intake: None Ordered Anthropometric Measures: Height: 152.4 cm (5') Current Body Weight: 41.3 kg (91 lb) (08/06) Weight Source: Not Specified [place] Body Weight (lbs) (Calculated): 100 lbs [place] Body Weight (Kg) (Calculated): 45 kg % [place] Body Weight (Calculated): 91 % BMI (kg/m2) (Calculated): 17.8 Weight Adjustment For: No Adjustment BMI Categories: Underweight (BMI less than 22) age over 65 Nutrition Diagnosis: Underweight related to inadequate protein-energy intake as evidenced by BMI Nutrition Interventions: Nutrition Education/Counseling: No recommendation at this time Coordination of Nutrition Care: Continue to monitor while inpatient Goals: Goals: PO intake 50% or greater Nutrition Monitoring and Evaluation: Behavioral-Environmental Outcomes: None Identified Food/Nutrient Intake Outcomes: Food and Nutrient Intake, Supplement Intake Physical Signs/Symptoms Outcomes: Biochemical Data, GI Status, Fluid Status or Edema, Hemodynamic Status, Nutrition Focused Physical Findings, Skin, Weight Discharge Planning: Too soon to determine Edel Herring RD Contact: phone *[phone] Images from the original note were not included. Daily Trauma Progress Note Resident 08/07/2022 6:17 AM Admit Date: 08/05/2022 Post Trauma Day 2 Fall Mechanical HISTORY OF TRAUMATIC EVENT: 86 y.o. female status post [facility]. The incident happened around 8AM on 08/05 at home. When the event happened the patient was walking at home when she tripped over her carpet and fell, hitting her left hand and face. She remembers the whole incident. Patient pain level currently is 5/10. Patient endorses 4 cigarette use for the past 10 years. INJURIES: - R SDH - B/l SAH - R>L pleural effusions - L distal radius and ulna fx PROCEDURES: None INCIDENTAL FINDINGS: None CHIEF COMPLAINT: Left wrist pain PREVIOUS 24 HOUR EVENTS: No acute events overnight. Consults: IP CONSULT TO NEUROSURGERY IP CONSULT TO ORTHOPAEDIC SURGERY IP CONSULT TO PALLIATIVE CARE IP CONSULT TO GERIATRICS MEDICATIONS: Current Facility-Administered Medications: acetaminophen (Tylenol) tablet 500 mg, 500 mg, Oral, q8h, John Marin MD, 500 mg at 08/07/22 0549 atorvastatin (Lipitor) tablet 80 mg, 80 mg, Oral, Nightly, John Marin MD, 80 mg at 08/06/222056 cholecalciferol (Vitamin D3) tablet 25 mcg, 25 mcg, Oral, Daily, John Marin MD, 25 mcg at 08/06/22 124 famotidine (Pepcid) injection 20 mg, 20 mg, IntraVENous, BID, John Marin MD, 20 mg at 08/06/222100 hydrALAZINE (Apresoline) injection 10 mg, 10 mg, IntraVENous, q4h PRN, John Marin MD HYDROmorphone (Dilaudid) injection 0.25 mg, 0.25 mg, IntraVENous, q4h PRN OR HYDROmorphone (Dilaudid) injection 0.5 mg, 0.5 mg, IntraVENous, q4h PRN, John Marin MD, 0.5 mg at 08/06/22818 ipratropium-albuterol (Duo-Neb) 0.5-2.5 mg/3 mL nebulizer solution 3 mL, 3 mL, Nebulization, TID, Jhon Marin MD, 3 mL at 08/06/222010 labetalol (Normodyne,Trandate) injection 10 mg, 10 mg, IntraVENous, q4h PRN, John Marin MD naloxone (Narcan) injection 0.4 mg, 0.4 mg, IntraVENous, PRN, John Marin MD ondansetron ODT (Zofran-ODT) disintegrating tablet 4 mg, 4 mg, Oral, q8h PRN OR ondansetron (Zofran) injection 4 mg, 4 mg, IntraVENous, q6h PRN, John Marin MD oxyCODONE (Roxicodone) immediate release tablet 2.5 mg, 2.5 mg, Oral, q4h PRN OR oxyCODONE (Roxicodone) immediate release tablet 5 mg, 5 mg, Oral, q4h PRN, John Marin MD perflutren lipid microspheres (Definity) injection 1.65 mg, 1.65 mg, IntraVENous, Once PRN, John Marin MD polyethylene glycol (PEG) 3350 (Miralax) packet 17 g, 17 g, Oral, Daily PRN, John Marin MD sodium chloride 0.9 % infusion, 100 mL/hr, IntraVENous, Continuous, John Marin MD, Last Rate: 100 mL/hr at 08/06/22 0823, 100 mL/hr at 08/06/22 0823 verapamil SR (Calan SR) ER tablet 240 mg, 240 mg, Oral, Daily, John Marin MD, 240 mg at 08/06/22 1242 ARE THERE PERTINENT UPDATES TO PAST,FAMILY, OR SOCIAL HISTORY?: No Subjective: Patient awake and alert. Comfortable in bed on 2 L NC. Does have a cough. Left wrist pain improved. Review of Systems Constitutional: Negative for chills and fever. HENT: Negative for nosebleeds. Eyes: Negative for pain. Respiratory: Positive for cough. Negative for shortness of breath. Cardiovascular: Negative for chest pain. Gastrointestinal: Negative for abdominal pain, nausea and vomiting. Endocrine: Negative for polyuria. Musculoskeletal: Negative for back pain and neck pain. Left wrist pain Skin: Negative for rash. Ecchymosis Neurological: Negative for headaches. Psychiatric/Behavioral: Negative for agitation. PC-PTSD-5 Had nightmares about the event(s) or thought about the event(s) when you did not want to? No 2. Tried hard not to think about the event(s) or went out of your way to avoid situations that reminded you of the event(s)? No 3. Been constantly on guard, watchful, or easily startled? No 4. [place] numb or detached from people, activities, or your surroundings? No 5. [place] guilty or unable to stop blaming yourself or others for the event(s) or any problems the event(s) may have caused? No If yes to or more, place CLP consult PHQ In the last 2 weeks have you had: Little interest or pleasure in doing things No Been feeling down, depressed, or hopeless No If greater then 0, place CLP consult Date PHQ completed: 08/06 Objective: Patient Vitals for the past 24 hrs: BP Temp Temp src Pulse Resp SpO2 Height Weight 08/07/22 0500 116/68 -- -- 90 23 93 % -- -- 08/07/22 0300 117/79 -- -- 85 19 97 % -- -- 08/07/22 0200 110/58 -- -- 80 17 96 % -- -- 08/07/22 0100 111/63 -- -- 77 18 100 % -- -- 08/07/22 0000 (!) 115/45 36.7 C (98 F) Temporal 81 18 93 % -- -- 08/06/22 2300 114/50 -- -- 62 17 99 % -- -- 08/06/22 2200 113/56 -- -- 68 17 96 % -- -- 08/06/221999 109/54 36.5 C (97.7 F) Temporal 60 23 94 % -- -- 08/06/22 1900 117/57 -- -- 59 21 -- -- -- 08/06/22 1600 -- -- -- 72 -- -- -- -- 08/06/22 1439 -- -- -- -- -- -- 1.524 m (5') 41.3 kg (91 lb) 08/06/22 1413 -- -- -- -- -- -- 1.524 m (5') 41.3 kg (91 lb) 08/06/22 1400 (!) 146/66 -- -- 95 15 -- -- -- 08/06/22 1300 -- -- -- 92 16 -- -- -- 08/06/22 1247 -- -- -- 102 23 -- -- -- 08/06/22 1244 -- -- -- 105 20 90 % -- -- 08/06/22 1200 119/59 -- -- 86 18 99 % -- -- 08/06/22 1100 135/62 -- -- 91 15 96 % -- -- 08/06/22 1000 125/57 -- -- 85 14 -- -- -- 08/06/22 0900 118/74 -- -- 83 21 98 % -- -- 08/06/22 0855 -- -- -- -- -- 99 % -- -- 08/06/22 0800 124/64 36.4 C (97.6 F) Temporal 96 23 100 % -- -- 08/06/22 0730 -- -- -- 76 -- -- -- -- 08/06/22 0700 123/51 -- -- 82 14 96 % -- -- Intake/Output Summary (Last 24 hours) at 08/07/2022 0617 Last data filed at 08/07/2022 0550 Gross per 24 hour Intake 2157 ml Output -- Net 2157 ml I/O this shift: In: 1125 [I.V.:1125] Out: - Last BM: 08/07 Diet: Regular diet CVP: No Chest Tubes: R: No L: No PHYSICAL: Physical Exam Constitutional: General: She is not in acute distress. HENT: Head: Normocephalic and atraumatic. Mouth/Throat: Mouth: Mucous membranes are moist. Eyes: Conjunctiva/sclera: Conjunctivae normal. Comments: Left periorbital ecchymosis Cardiovascular: Rate and Rhythm: Normal rate and regular rhythm. Pulses: Normal pulses. Heart sounds: Normal heart sounds. No murmur heard. Pulmonary: Effort: Pulmonary effort is normal. No respiratory distress. Breath sounds: Rales present. No wheezing or rhonchi. Comments: NC. Decreased breath sounds at bases Abdominal: Palpations: Abdomen is soft. Tenderness: There is no abdominal tenderness. There is no guarding or rebound. Musculoskeletal: Right lower leg: No edema. Left lower leg: No edema. Skin: General: Skin is warm and dry. Neurological: Mental Status: She is alert and oriented to person, place, and time. Sensory: No sensory deficit. Motor: No weakness. Psychiatric: Mood and Affect: Mood normal. Behavior: Behavior normal. Sutures or shayne? No O2: NC / / /FiO2 (%): 28 % Data Review Data CBC with Differential: Lab Results Component Value Date WBC 12.7 (H) 08/07/2022 RBC 3.64 (L) 08/07/2022 HGB 11.0 (L) 08/07/2022 HCT 32.6 (L) 08/07/2022 PLT 235 08/07/2022 CMP: Lab Results Component Value Date NA 135 08/07/2022 K 4.3 08/07/2022 CL 104 08/07/2022 CO2 27 08/07/2022 BUN 15 08/07/2022 CREATININE 1.10 (H) 08/07/2022 GLUCOSE 88 08/07/2022 CALCIUM 7.9 (L) 08/07/2022 BMP: Hepatic Function Panel:Ionized Calcium: No components found for: IONCA Magnesium: Lab Results Component Value Date MG 2.0 08/07/2022 Phosphorus: Lab Results Component Value Date PHOS 4.5 08/07/2022 PT/INR: No results found for: PROTIME, INR PTT: No results found for: APTT[APTT Last 3 Troponin: Lab Results Component Value Date TROPONINI <0.012 08/05/2022 Urine Culture: No components found for: CURINE Blood Culture: No components found for: CBLOOD, CFUNGUSBL Blood Culture from Central Line: No components found for: CBLOODLN Stool Culture: No components found for: CSTOOL Sputum Culture: No components found for: CSPUTUM Sputum Culture for AFB: No components found for: CAFBSM Wound Culture: Radiology: ECG 12 lead Result Date: 08/06/2022 Atrial fibrillation LVH with secondary repolarization abnormality Inferior infarct, old Anterior infarct, old ECG 12 lead Result Date: 08/05/2022 Atrial fibrillation LVH with secondary repolarization abnormality Inferior infarct, old Anterior infarct, old Electrocardiogram, 12-lead Result Date: 08/05/2022 Atrial fibrillation LVH with secondary repolarization abnormality Inferior infarct, old Anterior infarct, acute Prolonged QT interval Patient Active Problem List Diagnosis Intracranial hemorrhage (HCC) Debility Fall Acute pain due to trauma At risk for delirium ASSESSMENT: 86F s/p mechanical ground level fall found to have the following traumatic injuries: - R SDH - B/l SAH - R>L pleural effusions - L distal radius and ulna fx PLAN: Neuro/Spine: - Pain control: WILFREDO tylenol, PRN dilaudid - Neurosurgery consulted - [facility] stable - Seizure ppx: none - Elevate HOB 30 degrees - Neuro checks q1h - Palliative consult - Geriatrics consult HEENT - No acute issues - Monitor left periorbital ecchymosis Cardiovascular - SBP goal <140 - Labetalol/hydralazine q4h prn - Home verapamil ER 240 mg - Home statin - Hold home lisinopril 5 mg, ASA 325 mg - Telemetry - ECG - a-fib - Trop neg - Echo EG 55% with normal motion LV Pulmonary - Goal SpO2 > 88% - CT with large right and moderate left pleural effusions - IS - Acapella - Duonebs - Thoracentesis today. FEN/GI - Regular diet - DC NS - Zofran PRN - Bowel regimen: miralax prn - AREA FORESTER consulted - Daily BMP, Mg, Phos - Rectal prolapse reduced at bedside - Colorectal consult tomorrow : - Estimated Creatinine Clearance: 23.9 mL/min (A) (by C-G formula based on SCr of 1.1 mg/dL (H)). # THOMAS - Cr 1.1 (0.96) - Monitor Heme: - Hgb stable - Daily CBC ID: - No antibiotics indicated Endo: - No acute issues Lines/Devices: - PIV Prophylaxis: DVT: SCDs Has DVT PPX been started? No If no, why? Thora today GI: Pepcid Pressure Ulcer: monitor, q2h turns Musculoskeletal: - Keep splint c/d/I - Follow up outpatient with Dr. Carrillo - PT/OT - LUE NWB, all other extremities WBAT Is the patient in restraints?: No Medications Reconciled- Yes [x] NO [] Disposition: T2 ICU Associated attestation - Annabelle Bob MD - 08/07/2022 11:33 AM EDT ~~~~~~~~~~~~~~~~~~~~~~~~~~~~~~~~~ ~~~~~~~~~~~~~~~~~~~~~~~~~~~~ ATTENDING ADDENDUM Patient Active Problem List Diagnosis Intracranial hemorrhage (HCC) Debility Fall Acute pain due to trauma At risk for delirium I independently saw the above patient and reviewed the recent events, imaging, labs, vital signs; I performed a physical exam and ROS on the same date of service as above. My findings agree with the above note except for any details corrected below. A complete review of systems was obtained and is negative except as stated in HPI. 86F s/p mech fall ASA daily Acute traumatic SDH/SAH L distal radius and ulna fx B/l effusions Current Smoker Rectal prolapse during BM --> patient placed in bed and reduced with colorectal resident at bedside Colorectal consult Statin, vit D, verapamil Thoracentesis R BNP elevation DC IVF Leukocytosis, afebrile --> Monitor monitor Hold lovenox for thoracentesis Neurological system #Traumatic Acute SDH and SAH - Multimodal pain control - Delirium precautions Circulatory system #HTN, #Afib - lisinopril - hold - cont verapamil - Hold asa 325 mg daily #Echo EF 55% and BNP elevated , pw b/l pleural effusions - thoracentesis R - SBP < 140 - PRN anti-htn med Respiratory system #b/l pleural effusions - work up cardiac source vs infection vs malignancy - Thoracentesis likely tomorrow - resp panel # poss COPD with h/o smoking - O2 > 88 - Aggressive pulmonary hygiene Gastrointestinal system - AREA FORESTER - Bowel regimen # Rectal prolapse - reduced at bedside - colorectal consult - start metamucil Renal function - Strict I/Os Immunologic system - Monitor for fevers Hematologic system - Monitor hemoglobin Endocrine system - Monitor glucose Integumentary system (GI and cutaneous) - Skin checks Musculoskeletal system - PTOT #left distal radius with associated distal ulna fracture -Reduced and splinted in ICU. No acute surgical intervention. -Follow-up outpatient with Dr. Carrillo -Keep splint c/d/i -NWB LUE, otherwise activity as tolerated Ppx - HOLD Lovenox 48h after stable CTH - Pepcid Level of Medical Decision Making: risk of morbidity from additional diagnostic testing or treatment due to rectal prolapse, ICH []High [x]Moderate []Low Complexity: Acute, complicated injury (MOD) Risk: Prescription drug management (MOD) Personally Reviewed/Independently interpreted patient's: [x]Epic notes []Radiology studies [x]Labs []EKG []Ordering tests []Other Discussed/ With: [x]Patient/Family [x]RN [x]Consultants []SW/TCC []Other I spent total time of 45 minutes reviewing previous notes, test results, and face to face with Dayana Salamanca discussing the diagnosis and importance of compliance with the treatment plan as well as documenting on the day of the visit. Time was spent, Reviewing medical record including recent tests and results Ordering prescription medications/tests and procedures Communicating results to the patient/family/caregiver Counseling/educating the patient/family/caregiver Documenting clinical information the patient's electronic record Coordination of care for the patient Performing a medical appropriate exam and evaluation Annabelle Bob MD, FACS Division of Trauma Department of Surgery [facility] ~~~~~~~~~~~~~~~~~~~~~~~~~~~~~~~~~ ~~~~~~~~~~~~~~~~~~~~~~~~~~~~ This note may have been dictated using [employer] Practice Edition 2.6 and/or [employer] Voice Recognition Feature. The document was proofread; however, unrecognized voice recognition director stars errors may be present. Images from the original note were not included. Speech-Language Pathology SPEECH LANGUAGE PATHOLOGY [facility] Bedside Swallow Evaluation Patient Name: Dayana Salamanca Evaluation Date: 08/06/2022 Date of : 1935 Admission Date: 08/05/2022 10:10 PM Age: 86 y.o. Room[facility]Bed: [facility] Admission Diagnosis: does not have any pertinent problems on file. PPE Worn: surgical mask, gloves Code Status: Not Received IMPRESSION: No s/s oropharyngeal dysphagia. No overt clinical s/s pulmonary compromise with PO. Risk factors for aspiration include trauma/fall. RECOMMENDATION: Recommend Regular solids and Thin liquids and meds as tolerated and the following precautions: - Upright positioning for all PO intake - Small bites/sips - Please have food prepared pre-sliced/cut. No skilled acute AREA FORESTER indicated at this time. Please reconsult should changes occur. Subjective Patient alert and cooperative. Seen upright in bed. Answers all basic questions with clear, strong vocal quality. Follows all basic commands. No visitors at b/s. Spoke with RN who cleared pt to be evaluated. Dysphagia History: No history of AREA FORESTER services in EMR with retrospective chart review Premorbid Diet: regular diet with thin liquids Current Diet: Dietary Orders (From admission, onward) Start Ordered 08/05/222257 NPO diet Diet effective now 08/05/222258 Tube Feeding: no Tracheostomy: no Recent Chest Xray/CT of Chest: no Patient on 3L via NC. Past Medical History: Past Medical History: Diagnosis Date HTN (hypertension) Past Surgical History: No past surgical history on file. History of Present Illness: History Of Present Illness: This is a 86 y.o. right hand dominant female who presents with left wrist pain after a fall from standing. Patient reports that she tripped over her carpet and fell bracing herself with her left hand and hitting her face. She denies loss of consciousness. Denies any other injuries. Patient Complaint: Pt requesting food and water Pain: RN managing pain. Objective Bedside swallow eval completed. Oral Motor Mechanism Adequate structure, strength, and ROM in lingual, labial, and buccal musculature. prompt volitional swallow. Dentures on top adequate dentition on bottom. Oral Hygiene: moist, clean Swallowing Examination PO trials - ice chips (teaspoon) - thin liquid (cup edge) - puree (teaspoon) - regular solids Oral Phase Pt with adequate oral receipt of PO trials. No anterior spillage. Mastication with solids appeared complete, organized, and timely. Oral transit time appears WFL. no oral residue. Pharyngeal Phase Hyolaryngeal excursion clinically appears adequate and timely per palpation. 1 swallows palpated per bolus, likely indicative of adequate pharyngeal clearance. No overt clinical s/s pulmonary compromise as evidenced by no cough, no throat clear, and no change in vocal quality. Education Education Given: diet recommendations Given To: patient and RN Response: verbalizes understanding Goals Patient Stated Goal: Pt would like to begin a regular diet with thin liquids Encounter Problems Encounter Problems (Active) Swallowing Patient will tolerate the least restrictive diet consistency to allow for safe consumption of daily meals (Initiated) Start: 08/06/22 Expected End: 08/20/22 Therapy Time AREA FORESTER Individual Minutes Time In: 0930 Time Out: 0940 Minutes: 10 KASHMIR Geller I was notified by the resident that the patient had arrived on T2 as a Direct Admit. I immediately came to T2 ICU to evaluate patient. I was at the bedside within 15 minutes of patient arrival. Please see H&P for further details. Rolan Noriega MD, FACS Trauma, Surgical Critical Care, & General Surgery Division of Trauma Department of Surgery [facility] Images from the original note were not included. Daily Trauma Progress Note Resident 08/06/2022 7:36 AM Admit Date: 08/05/2022 Post Trauma Day 1 Fall Mechanical HISTORY OF TRAUMATIC EVENT: 86 y.o. female status post [facility]. The incident happened around 8AM on 08/05 at home. When the event happened the patient was walking at home when she tripped over her carpet and fell, hitting her left hand and face. She remembers the whole incident. Patient pain level currently is 5/10. Patient endorses 4 cigarette use for the past 10 years. INJURIES: - R SDH - B/l SAH - R>L pleural effusions - L distal radius and ulna fx PROCEDURES: None INCIDENTAL FINDINGS: None CHIEF COMPLAINT: Left wrist pain PREVIOUS 24 HOUR EVENTS: No acute events overnight. Repeat CT head stable. Consults: IP CONSULT TO NEUROSURGERY IP CONSULT TO ORTHOPAEDIC SURGERY IP CONSULT TO PALLIATIVE CARE IP CONSULT TO GERIATRICS MEDICATIONS: Current Facility-Administered Medications: acetaminophen (Ofirmev) injection 600 mg, 15 mg/kg, IntraVENous, q8h, Lillian Campbell MD, Stopped at 08/06/22 0119 famotidine (Pepcid) injection 20 mg, 20 mg, IntraVENous, BID, Annabelle Bob MD hydrALAZINE (Apresoline) injection 10 mg, 10 mg, IntraVENous, q4h PRN, Annabelle Bob MD ipratropium-albuterol (Duo-Neb) 0.5-2.5 mg/3 mL nebulizer solution 3 mL, 3 mL, Nebulization, TID, Lillian Campbell MD labetalol (Normodyne,Trandate) injection 10 mg, 10 mg, IntraVENous, q4h PRN, Annabelle Bob MD ondansetron ODT (Zofran-ODT) disintegrating tablet 4 mg, 4 mg, Oral, q8h PRN OR ondansetron (Zofran) injection 4 mg, 4 mg, IntraVENous, q6h PRN, Annabelle Bob MD polyethylene glycol (PEG) 3350 (Miralax) packet 17 g, 17 g, Oral, Daily PRN, Lillian Campbell MD sodium chloride 0.9 % infusion, 100 mL/hr, IntraVENous, Continuous, Annabelle Bob MD ARE THERE PERTINENT UPDATES TO PAST,FAMILY, OR SOCIAL HISTORY?: No Subjective: Patient awake and alert. Comfortable in bed on 2 L NC. Having left wrist pain. Review of Systems Constitutional: Negative for chills and fever. HENT: Negative for nosebleeds. Gastrointestinal: Negative for abdominal pain, nausea and vomiting. Musculoskeletal: Left wrist pain Skin: Negative for rash. Ecchymosis PC-PTSD-5 Had nightmares about the event(s) or thought about the event(s) when you did not want to? No 2. Tried hard not to think about the event(s) or went out of your way to avoid situations that reminded you of the event(s)? No 3. Been constantly on guard, watchful, or easily startled? No 4. [place] numb or detached from people, activities, or your surroundings? No 5. [place] guilty or unable to stop blaming yourself or others for the event(s) or any problems the event(s) may have caused? No If yes to or more, place CLP consult PHQ In the last 2 weeks have you had: Little interest or pleasure in doing things No Been feeling down, depressed, or hopeless No If greater then 0, place CLP consult Date PHQ completed: 08/06 Objective: Patient Vitals for the past 24 hrs: BP Temp Temp src Pulse Resp SpO2 Height Weight 08/06/22 0700 123/51 -- -- 82 14 96 % -- -- 08/06/22 0600 130/57 -- -- 85 24 97 % -- -- 08/06/22 0500 115/53 -- -- 83 14 100 % -- -- 08/06/22 0400 101/55 -- -- 72 12 100 % -- -- 08/06/22 0300 106/55 -- -- 80 15 99 % -- -- 08/06/22 0200 (!) 100/46 -- -- 71 19 99 % -- -- 08/06/22 0105 119/63 -- -- 76 (!) 28 100 % -- -- 08/06/22 0000 113/65 36.4 C (97.6 F) Temporal 79 23 -- -- -- 04/14/23 2300 115/54 -- -- 81 22 -- -- -- 08/05/22 2215 (!) 142/91 36.6 C (97.9 F) Temporal 84 20 100 % 1.524 m (5') 41.3 kg (91 lb 0.8 oz) Intake/Output Summary (Last 24 hours) at 08/06/2022 0736 Last data filed at 08/06/2022 0043 Gross per 24 hour Intake -- Output 250 ml Net -250 ml No intake/output data recorded. Last BM: Prior to admission Diet: NPO CVP: No Chest Tubes: R: No L: No PHYSICAL: Physical Exam Constitutional: General: She is not in acute distress. HENT: Head: Normocephalic and atraumatic. Mouth/Throat: Mouth: Mucous membranes are moist. Eyes: Conjunctiva/sclera: Conjunctivae normal. Comments: Left periorbital ecchymosis Cardiovascular: Rate and Rhythm: Normal rate and regular rhythm. Pulses: Normal pulses. Heart sounds: Normal heart sounds. No murmur heard. Pulmonary: Effort: Pulmonary effort is normal. No respiratory distress. Breath sounds: Rales present. No wheezing or rhonchi. Comments: NC Abdominal: Palpations: Abdomen is soft. Tenderness: There is no abdominal tenderness. There is no guarding or rebound. Musculoskeletal: Right lower leg: No edema. Left lower leg: No edema. Skin: General: Skin is warm and dry. Neurological: Mental Status: She is alert and oriented to person, place, and time. Sensory: No sensory deficit. Motor: No weakness. Psychiatric: Mood and Affect: Mood normal. Behavior: Behavior normal. Sutures or shayne? No O2: NC / / / Data Review Data CBC with Differential: Lab Results Component Value Date WBC 8.0 08/06/2022 RBC 3.61 (L) 08/06/2022 HGB 10.8 (L) 08/06/2022 HCT 32.1 (L) 08/06/2022 PLT 224 08/06/2022 CMP: Lab Results Component Value Date NA 137 08/06/2022 K 4.0 08/06/2022 CL 105 08/06/2022 CO2 31 (H) 08/06/2022 BUN 10 08/06/2022 CREATININE 0.96 08/06/2022 GLUCOSE 94 08/06/2022 CALCIUM 8.0 (L) 08/06/2022 BMP: Hepatic Function Panel:Ionized Calcium: No components found for: IONCA Magnesium: Lab Results Component Value Date MG 2.0 08/06/2022 Phosphorus: Lab Results Component Value Date PHOS 4.0 08/06/2022 PT/INR: No results found for: PROTIME, INR PTT: No results found for: APTT[APTT Last 3 Troponin: Lab Results Component Value Date TROPONINI <0.012 08/05/2022 Urine Culture: No components found for: CURINE Blood Culture: No components found for: CBLOOD, CFUNGUSBL Blood Culture from Central Line: No components found for: CBLOODLN Stool Culture: No components found for: CSTOOL Sputum Culture: No components found for: CSPUTUM Sputum Culture for AFB: No components found for: CAFBSM Wound Culture: Radiology: ECG 12 lead Result Date: 08/06/2022 Atrial fibrillation LVH with secondary repolarization abnormality Inferior infarct, old Anterior infarct, old ECG 12 lead Result Date: 08/05/2022 Atrial fibrillation LVH with secondary repolarization abnormality Inferior infarct, old Anterior infarct, old Electrocardiogram, 12-lead Result Date: 08/05/2022 Atrial fibrillation LVH with secondary repolarization abnormality Inferior infarct, old Anterior infarct, acute Prolonged QT interval Patient Active Problem List Diagnosis Intracranial hemorrhage (HCC) ASSESSMENT: 86F s/p mechanical ground level fall found to have the following traumatic injuries: - R SDH - B/l SAH - R>L pleural effusions - L distal radius and ulna fx PLAN: Neuro/Spine: - Pain control: WILFREDO IV tylenol, PRN dilaudid - Neurosurgery consulted - [facility] stable - Seizure ppx: none - Elevate HOB 30 degrees - Neuro checks q1h - Palliative consult - Geriatrics consult HEENT - No acute issues - Monitor left periorbital ecchymosis Cardiovascular - SBP goal <140 - Labetalol/hydralazine q4h prn - Restart home verapamil ER 240 mg once ok for PO - Hold home lisinopril 5 mg, ASA 325 mg - Telemetry - ECG - a-fib - Trop neg - Echo Pulmonary - Goal SpO2 > 88% - CT with large right and moderate left pleural effusions - IS - Acapella - Duonebs - Respiratory panel - Consider thoracentesis tomorrow FEN/GI - NPO - NS 100 - Zofran PRN - Bowel regimen: miralax prn - AREA FORESTER consulted - Daily BMP, Mg, Phos : - Estimated Creatinine Clearance: 27.4 mL/min (by C-G formula based on SCr of 0.96 mg/dL). Heme: - Hgb stable - Daily CBC ID: - No antibiotics indicated Endo: - No acute issues Lines/Devices: - PIV Prophylaxis: DVT: SCDs Has DVT PPX been started? No If no, why? Patient with Acute Head Bleed GI: Pepcid Pressure Ulcer: monitor, q2h turns Musculoskeletal: - Keep splint c/d/I - Follow up outpatient with Dr. Carrillo - PT/OT - LUE NWB, all other extremities WBAT Is the patient in restraints?: No Medications Reconciled- Yes [x] NO [] Disposition: T2 ICU Associated attestation - Annabelle Bob MD - 08/07/2022 11:33 AM EDT ~~~~~~~~~~~~~~~~~~~~~~~~~~~~~~~~~ ~~~~~~~~~~~~~~~~~~~~~~~~~~~~ ATTENDING ADDENDUM Patient Active Problem List Diagnosis Intracranial hemorrhage (HCC) I independently saw the above patient and reviewed the recent events, imaging, labs, vital signs; I performed a physical exam and ROS on the same date of service as above. My findings agree with the above note except for any details corrected below. A complete review of systems was obtained and is negative except as stated in HPI. 86F s/p mech fall ASA daily Acute traumatic SDH/SAH L distal radius and ulna fx B/l effusions Current Smoker Need to reconcile home meds and patient's history Neurological system #Traumatic Acute SDH and SAH - Multimodal pain control - Delirium precautions - NSG --> appreciate recs --> discussed patient in person --> is possible that as this becomes subacute it could enlarge and require evacuation. At this time I would recommend observation. Recommend repeat CT head in the next 2 to 3 days. Circulatory system #HTN, #Afib - lisinopril - hold and verapamil restart - Hold asa 325 mg daily #Check echo and BNP, pw b/l pleural effusions Left Ventricle: Left ventricle size is normal. Normal wall thickness. Normal left ventricular systolic function. The EF by visual approximation is 55%. Normal wall motion. Right Ventricle: Right ventricle size is normal. Normal systolic function. Aortic Valve: Mild (1+) regurgitation. Left Atrium: Left atrium is moderately dilated. Right Atrium: Right atrium is mildly dilated. Pericardium: Left pleural effusion. IVC/SVC: IVC diameter is dilated and decreases less than 50% during inspiration; therefore the estimated right atrial pressure is elevated (~15 mmHg). No significant valvular abnormalities (mild AI, MR and TR). - SBP < 140 - PRN anti-htn med Respiratory system #b/l pleural effusions - work up cardiac source vs infection vs malignancy - Thoracentesis, right - resp panel # poss COPD with h/o smoking - O2 > 88 - Aggressive pulmonary hygiene Gastrointestinal system - AREA FORESTER - diet - Bowel regimen Renal function - Strict I/Os Immunologic system - Monitor for fevers Hematologic system - Monitor hemoglobin Endocrine system - Monitor glucose Integumentary system (GI and cutaneous) - Skin checks Musculoskeletal system - PTOT #left distal radius with associated distal ulna fracture -Reduced and splinted in ICU. No acute surgical intervention. -Follow-up outpatient with Dr. Carrillo -Keep splint c/d/i -NWB LUE, otherwise activity as tolerated Ppx - HOLD Lovenox - Pepcid Level of Medical Decision Making: risk of morbidity from additional diagnostic testing or treatment due to fall, ICH [x]High []Moderate []Low Complexity: Acute or chronic illness posing a threat to life (HIGH) Risk: Requires close neuro-critical care monitoring due to risk of neurological deterioration (HIGH) Personally Reviewed/Independently interpreted patient's: [x]Epic notes [x]Radiology studies [x]Labs []EKG [x]Ordering tests []Other Discussed/ With: [x]Patient/Family [x]RN [x]Consultants []SW/TCC []Other I spent total time of 53 minutes reviewing previous notes, test results, and face to face with Dayana Salamanca discussing the diagnosis and importance of compliance with the treatment plan as well as documenting on the day of the visit. Time was spent, Reviewing medical record including recent tests and results Ordering prescription medications/tests and procedures Communicating results to the patient/family/caregiver Counseling/educating the patient/family/caregiver Documenting clinical information the patient's electronic record Coordination of care for the patient Performing a medical appropriate exam and evaluation Annabelle Bob MD, FACS Division of Trauma Department of Surgery [facility] ~~~~~~~~~~~~~~~~~~~~~~~~~~~~~~~~~ ~~~~~~~~~~~~~~~~~~~~~~~~~~~~ This note may have been dictated using [employer] Medical Practice Edition 2.6 and/or [employer] Voice Recognition Feature. The document was proofread; however, unrecognized voice recognition director stars errors may be present. documented in this encounter [facility] 08-11-2022 Note Formatting of this n ote might be different from the original. Auth received for admission to [facility]. Transport set for 5pm with Dominik Marten via cot. Patient and staff notified of pending dc and pickling machine operator time. [facility] 08-11-2022 Miscellaneous Notes Auth received for admission to [facility]. Transport set for 5pm with Dominik Marten via cot. Patient and staff notified of pending dc and pickling machine operator time. Met with patient at bedside with chun Mckeon on phone, discussed therapy recommendations, is agreeable to placement. Discussed transportation and is agreeable. Will follow. Patient Choice Patient Name: DYAANA SALAMANCA Date of : 1935 All Providers Sent Referral Name: [facility] Address: [address] [place] [address] [facility] able to accept, submitting for insurance approval. Medical Plan: Chest tube in place. CXR completed. PT/OT recs FBT. Met with patient discussed therapy recommendations would like to go to [facility]. Referral sent. Will need insurance approval. Will follow. Discharge plan:[facility]? Discharge barriers: none S/p right thoracentesis on 08/07. Chest xray from this morning demonstrated small right apical pneumothorax. Discussed with radiologists who recommend repeat chest x-ray this afternoon to re-evaluate pneumothorax. Communicated this to Dr. Garcia via Secure Chat. Care Managment Initial Assessment Date: 08/09/2022 Patient Name: Dayana Salamanca : 1935 Patient Information Source of Information: Patient Cognition/Language: WFL - Within Functional Limits Permission given to speak with patient jewelry sales representative/caregiver as indicated: Yes Confirmation of Payer with patient/family: Yes Payer Name: uhc : No Confirmation of Primary Care Physician: Confirmed PCP Name: [facility] Seen in last 2 years?: Yes Primary Caregiver: Self If assistance needed, confirmed caregiver ready, willing and able to care for patient at discharge: Confirmed with: patient Living Arrangements Current Residence: Private Residence Number of Floors 1 Number of Entry Steps: 2 Bed/Bath Levels: Both first floor Facility: Facility Name: Plan to Return: Yes Lives with: Alone Support Systems: Family members Activities of Daily Living Ambulation: Independent Bathing/Dressing: Independent Elimination/Continence/Toileting: Independent Feeding: Independent Who Assists with Activities of Daily Living: Instrumental Activities of Daily Living Prescription Coverage: Yes Pharmacy Used: Medication Management: Independent Transportation/Shopping: Assistance Provider Transportation/Shopping Assistance Provider Name: family provides Transportation Mode: Needs Assistance with Transportation at Discharge: Meal Preparation: Independent Laundry/Cleaning: Independent Finances/Bill Paying: Independent Communication: Independent Types of Care Services/Equipment Utilized Care Services: Dialysis Type: Durable Medical Equipment: Patient's Goal/Discharge Plan Patient expects to be discharged to: home Discharge Planning Actions: Continue to follow Patient's Choice Rights and [employer] and Collaborative Relationships Disclosed as Indicated for Post-Acute Care: NA Interdisciplinary Team Engagement: Geriatric Assessment, PT/OT, Palliative Care Social Work Referral for: Additional Information: Patient admitted s/p fall sdh, left radius/ulna fracture. Geriatrics, Neurosurgery, and Palliative Care following. Dopplers and CXR pending. PT/OT pending for dc recommendations. Met with patient at bedside, states she lives in a trailer alone. Niece lives a few trailers down and assists her as needed. She has insurance with prescription coverage. States niece will be able to help as needed at dc. Will follow. Mp Heredia RN Problem: Knowledge Deficit Goal: Patient/family/caregiver demonstrates understanding of disease process, treatment plan, medications, and discharge instructions Outcome: Progressing Problem: Potential for Compromised Skin Integrity Goal: Skin Integrity is Maintained or Improved Outcome: Progressing Goal: Nutritional status is improving Outcome: Progressing Problem: Urinary Incontinence Goal: Perineal skin integrity is maintained or improved Outcome: Progressing Problem: Knowledge Deficit Goal: Patient/family/caregiver demonstrates understanding of disease process, treatment plan, medications, and discharge instructions Outcome: Progressing Problem: Potential for Compromised Skin Integrity Goal: Skin Integrity is Maintained or Improved Outcome: Progressing Goal: Nutritional status is improving Outcome: Progressing Problem: Urinary Incontinence Goal: Perineal skin integrity is maintained or improved Outcome: Progressing documented in this encounter [facility] 08-11-2022 Note Formatting of this n ote might be different from the original. Met with patient at bedside with son Mike on phone, discussed therapy recommendations, is agreeable to placement. Discussed transportation and is agreeable. Will follow. [facility] 08-10-2022 Consult note Associated Order (s): IP CONSULT TO DIETITIAN Nutrition Assessment Type and Reason for Visit: Reassess Nutrition Recommendations/Plan: Continue with current diet. Discontinued Magic Cup per pt preference and continue with Ensure Compact - provide twice daily via MNT protocol. Monitor nutritional status. Malnutrition Assessment: Malnutrition Status: At risk for malnutrition (Comment) Context: Chronic Illness Findings of the 6 clinical characteristics of malnutrition: Energy Intake: Mild decrease in energy intake (Comment) Weight Loss: (possible weight loss, but pt reports great fluctuations in weight, difficult to clarify) Body Fat Loss: (? chronic due to advanced age vs. acute) Buccal region, Orbital Muscle Mass Loss: (? chronic due to advanced age vs. acute) Temples (temporalis), Thigh (quadraceps), Scapula (trapezius) Fluid Accumulation: Mild Lead Systems Analyst Strength: Not Performed Nutrition Assessment: Pt is an 86 year old female with PMH that includes HTN who admits 08/05 after a mechanical fall. Found to have traumatic acute SDH and SAH; bilateral pleural effusions; and left distal radius with associated distal ulna fracture. Ortho performed closed reduction of L distal radius 08/06. Neurosurgery following - no surgical intervention @ this time. AREA FORESTER completed swallow eval 08/06 with recommendations for Regular/Thin. Pt is s/p right thoracentesis on 08/07 and is s/p Right chest tube on 08/08. 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 UBW 77-90#, pt told RD her highest weight was 114# when was 9 months with her son. She weighs herself every other week and is 77-88 lbs. Colon/Rectal consulted for rectal prolapse and reduced at bedside 08/06; elective surgery outpt if continues to be an issue. Pt reports improved appetite. At home she eats when she is hungry, eats often but not a large amount at once. Estimated Daily Nutrient Needs: Energy Requirements Based On: Kcal/kg Weight Used for Energy Requirements: Current Weight for Energy Calculation (kg): 41.3 kg Total Energy Requirements (kcals/day): 28-32 kcal/kg = 7894-3707 kcal Weight Used for Protein Requirements: Current Weight in Kg Used for Protein Requirements: 41.3 kg Estimated Total Protein (g/day): 1.1-1.3 gm/kg = 45-54 gm Estimated Daily Total Fluid (ml/day): per MD recommendations Nutrition Related Findings: +BS, +BM 08/10/22. Wound Type: Skin Tears (L elbow skin tear) Net IO Since Admission: -1,298 mL [08/10/22 1320] Current Nutrition Therapies: Adult diet Regular; No Added Salt (3-4 gm) Current Oral Intake Average Meal Intake: 26-50%, 51-75% Average Supplements Intake: 26-50% Anthropometric Measures: Height: 152.4 cm (5') Current Body Weight: 41.3 kg (91 lb) (08/06) Weight Source: Not Specified [place] Body Weight (lbs) (Calculated): 100 lbs [place] Body Weight (Kg) (Calculated): 45 kg % [place] Body Weight (Calculated): 91 % BMI (kg/m2) (Calculated): 17.8 Weight Adjustment For: No Adjustment BMI Categories: Underweight (BMI less than 22) age over 65 Wt Readings from Last 10 Encounters: 08/06/22 41.3 kg (91 lb) LABS: Recent Labs 08/08/22 0126 08/09/22 0405 NA 135 132* K 4.4 4.6 CL 107 105 CO2 25 25 BUN 16 21* CREATININE 1.02 0.98 GLUCOSE 105* 98 CALCIUM 8.5 7.9* MG 2.0 2.1 PHOS 3.4 3.2 Recent Labs 08/09/22 0405 AST 43 ALT 23 BILITOT 0.6 ALKPHOS 108 No results found for: ZINC Nutrition Diagnosis: Underweight related to inadequate protein-energy intake as evidenced by BMI Nutrition Interventions: Nutrition Education/Counseling: Education not indicated Coordination of Nutrition Care: Continue to monitor while inpatient Goals: Goals: PO intake 50% or greater Nutrition Monitoring and Evaluation: Behavioral-Environmental Outcomes: None Identified Food/Nutrient Intake Outcomes: Food and Nutrient Intake, Supplement Intake Physical Signs/Symptoms Outcomes: Biochemical Data, Skin, Weight, GI Status, Hemodynamic Status, Nutrition Focused Physical Findings, Fluid Status or Edema Discharge Planning: Too soon to determine Adina Pinto RD,LD,[facility] Contact: *[phone] or [employer] Chat T [facility] 08-10-2022 Consult note Associated Order (s): IP CONSULT TO DIETITIAN Nutrition Assessment Type and Reason for Visit: Reassess Nutrition Recommendations/Plan: Continue with current diet. Discontinued Magic Cup per pt preference and continue with Ensure Compact - provide twice daily via MNT protocol. Monitor nutritional status. Malnutrition Assessment: Malnutrition Status: At risk for malnutrition (Comment) Context: Chronic Illness Findings of the 6 clinical characteristics of malnutrition: Energy Intake: Mild decrease in energy intake (Comment) Weight Loss: (possible weight loss, but pt reports great fluctuations in weight, difficult to clarify) Body Fat Loss: (? chronic due to advanced age vs. acute) Buccal region, Orbital Muscle Mass Loss: (? chronic due to advanced age vs. acute) Temples (temporalis), Thigh (quadraceps), Scapula (trapezius) Fluid Accumulation: Mild Lead Systems Analyst Strength: Not Performed Nutrition Assessment: Pt is an 86 year old female with PMH that includes HTN who admits 08/05 after a mechanical fall. Found to have traumatic acute SDH and SAH; bilateral pleural effusions; and left distal radius with associated distal ulna fracture. Ortho performed closed reduction of L distal radius 4/15. Neurosurgery following - no surgical intervention @ this time. AREA FORESTER completed swallow eval 08/06 with recommendations for Regular/Thin. Pt is s/p right thoracentesis on 08/07 and is s/p Right chest tube on 08/08. 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 UBW 77-90#, pt told RD her highest weight was 114# when was 9 months with her son. She weighs herself every other week and is 77-88 lbs. Colon/Rectal consulted for rectal prolapse and reduced at bedside 08/06; elective surgery outpt if continues to be an issue. Pt reports improved appetite. At home she eats when she is hungry, eats often but not a large amount at once. Estimated Daily Nutrient Needs: Energy Requirements Based On: Kcal/kg Weight Used for Energy Requirements: Current Weight for Energy Calculation (kg): 41.3 kg Total Energy Requirements (kcals/day): 28-32 kcal/kg = 2664-7126 kcal Weight Used for Protein Requirements: Current Weight in Kg Used for Protein Requirements: 41.3 kg Estimated Total Protein (g/day): 1.1-1.3 gm/kg = 45-54 gm Estimated Daily Total Fluid (ml/day): per MD recommendations Nutrition Related Findings: +BS, +BM 08/10/22. Wound Type: Skin Tears (L elbow skin tear) Net IO Since Admission: -1,298 mL [08/10/22 1320] Current Nutrition Therapies: Adult diet Regular; No Added Salt (3-4 gm) Current Oral Intake Average Meal Intake: 26-50%, 51-75% Average Supplements Intake: 26-50% Anthropometric Measures: Height: 152.4 cm (5') Current Body Weight: 41.3 kg (91 lb) (08/06) Weight Source: Not Specified [place] Body Weight (lbs) (Calculated): 100 lbs [place] Body Weight (Kg) (Calculated): 45 kg % [place] Body Weight (Calculated): 91 % BMI (kg/m2) (Calculated): 17.8 Weight Adjustment For: No Adjustment BMI Categories: Underweight (BMI less than 22) age over 65 Wt Readings from Last 10 Encounters: 08/06/22 41.3 kg (91 lb) LABS: Recent Labs 08/08/22 0126 08/09/22 0405 NA 135 132* K 4.4 4.6 CL 107 105 CO2 25 25 BUN 16 21* CREATININE 1.02 0.98 GLUCOSE 105* 98 CALCIUM 8.5 7.9* MG 2.0 2.1 PHOS 3.4 3.2 Recent Labs 08/09/22 0405 AST 43 ALT 23 BILITOT 0.6 ALKPHOS 108 No results found for: ZINC Nutrition Diagnosis: Underweight related to inadequate protein-energy intake as evidenced by BMI Nutrition Interventions: Nutrition Education/Counseling: Education not indicated Coordination of Nutrition Care: Continue to monitor while inpatient Goals: Goals: PO intake 50% or greater Nutrition Monitoring and Evaluation: Behavioral-Environmental Outcomes: None Identified Food/Nutrient Intake Outcomes: Food and Nutrient Intake, Supplement Intake Physical Signs/Symptoms Outcomes: Biochemical Data, Skin, Weight, GI Status, Hemodynamic Status, Nutrition Focused Physical Findings, Fluid Status or Edema Discharge Planning: Too soon to determine Adina Pinto RD,LD,[facility] Contact: *[phone] or [employer] Chat Images from the original note were not included. Palliative Care Initial Consult Chief Complaint: Dayana Salamanca is a 86 y.o. female with chief complaint of fall. Palliative Care is signing off, please re-consult if needed. (add SIGNOFFTRANSITION dotphrase below) Assessment/Plan Fall, initial encounter - at home, tripped over carpet - resultant in R SDH, L wrist fracture SDH - small R - neurosurgery with repeat CTH and follow up as outpatient Pleural effusion - per sicu furosemide Pain due to trama - scheduled tylenol - oarrs reviewed, opiate naive - without pain today - appropriate prn oxycodone 2.5-5mg available without need Debility - pending PT/OT - resides in trailer with 2 cats - nieces live 2-3 trailers away from her and visit often L radial and ulnar fracture - orthopedics reduced, splinted, no surgical intervention needed, follow up as outpatient Palliative Care Encounter -full code - palliative consulted as trauma trigger given elderly fall at home with SDH. Introduced myself and service, why consulted - tells me she has living will, when asked what it said, tells me do not resuscitate me, if I'm dying let me asked if she has [place] DNR form, tells me she does not, clarified no chest compressions, defibrillation, intubation or vent supports, agrees, aware will fill out [place] form for portability and provide her with original to have with her paperwork. Is very thankful - [place] DNRCCA-DNI form filled out and placed on chart - goals clear, without symptoms will sign off at this time, should needs change during hospitalization please re-consult Total of 65 minutes spent on this encounter including Chart review, Patient visit and exam, Documentation in EHR, Care coordination, Communicating with primary attending or other consultants, and Counseling and educating patient/family/caregiver. Discharge planning: Ready for discharge from Palliative Care perspective, no follow-up needed Patient meets criteria for general inpatient hospice care including the following: N/A - Palliative Care Patient Referrals to: None Discussed patient and the plan of care with the other interdisciplinary team (IDT) members of Palliative Care Team, and with Primary Attending, Patient, and Floor Nurse Insert attestation statement here if applicable (.disupervision) or (.npattest) I have discussed the patient's case and plan of care with my collaborating physician Dr. Estrella Subjective: Hospital days prior to consult: 0 Trauma Consult: yes. (If yes, please add .traumapall dotphrase for tracking purposes.) This is a Palliative Care consultation in a Trauma patient. Subjective/Events This is a 86 yo lady living at home independently with her 2 cats, PMHx HTN on very minimal medications, tripped over carpet in home resultant in fall, went to [facility] Repeat [facility] with stability, no neurosurgical interventions needed, also suffered L ulnar and radial fracture with reduction and splinting. Palliative care consulted for goals of care Patient awake in bed in NAD, actually without pain, CP, abdominal pain, headache, no vision changes, breathing is easy and not labored, no nausea, vomiting, diarrhea or constipation, documented BM 4.. appetite good, she has always been thin, most she ever weighed was 114 when she was with son Pain Assessment (If Pain Scale >0) Denies pain Goals of care:Continue Current Management Advance Directives: DNR-CCA Surrogate: Child Prognosis: unknown Spiritual assessment: No spiritual distress identified Bereavement and grief: Grief Issues Not Identified Past Medical History: Diagnosis Date HTN (hypertension) No past surgical history on file. No family history on file. Unable to obtain family history due to parents have Allergies Allergen Reactions Diphenhydramine Other Radford Review of Systems ROS: See palliative care ROS/ESAS below; All other systems were reviewed and are negative. [place] Symptom Assessment Score [place] Score Pain Score 0 Tiredness Score 0 Nausea Score 0 Depression Score 0 Anxiety Score 0 Drowsiness Score 0 Anorexia Score (0= eating well, 10= not eating) 0 Wellbeing Score (10= worst sense of well-being) 0 Constipation 0 Dyspnea Score (0= no shortness of breath) 0 FLACC Scale (For Pain Assessment of the Non-Verbal Patient) Patient is verbal Assessed by: patient and provider. Social history: status: no Marital status: Living status: alone Work history: retired Advance Care Planning: The patient has capacity to make healthcare and advanced care planning decisions Yes The patient's identified surrogate decision maker is Child. As above Family Meeting: Participants: patient Family meeting was held to discuss: as above Objective: Physical Exam BP 119/69 Pulse 102 Temp 36.4 C (97.6 F) Resp 16 Ht 5' (1.524 m) Wt 91 lb (41.3 kg) SpO2 99% BMI 17.77 kg/m Physical Exam Vitals and nursing note reviewed. Constitutional: Appearance: She is cachectic. HENT: Nose: Nose normal. Mouth/Throat: Mouth: Mucous membranes are moist. Eyes: General: Right eye: No discharge. Left eye: No discharge. Pupils: Pupils are equal, round, and reactive to light. Comments: L eye ecchymosis Cardiovascular: Rate and Rhythm: Normal rate and regular rhythm. Pulses: Normal pulses. Heart sounds: Murmur heard. Comments: No edema B post tib/dorsalis pedis palpable Pulmonary: Effort: Pulmonary effort is normal. Breath sounds: Normal breath sounds. Abdominal: General: Bowel sounds are normal. There is no distension. Palpations: Abdomen is soft. There is no mass. Musculoskeletal: General: Deformity (LUE) present. Cervical back: Normal range of motion and neck supple. Right lower leg: No edema. Left lower leg: No edema. Skin: General: Skin is warm and dry. Comments: fragile Neurological: General: No focal deficit present. Mental Status: She is alert and oriented to person, place, and time. Psychiatric: Mood and Affect: Mood normal. Behavior: Behavior normal. Behavior is cooperative. Comments: No agitation Current Medications: Inpatient medications reviewed: yes Home medications reviewed: yes OARRS Reviewed: Yes-no reportable medications 24 Hour PRN Meds: labetalol times 1 Results/Verification of Data Review Objective data reviewed (be specific which labs, imaging reports with dates reviewed): 08/08/22: BMP, CBC, 08/06/22: CT chest report reviewed Data in Support of Terminal Illness: Is patient hospice appropriate? no Transition Note Initiated: Dayana Salamanca has been seen in consultation by [facility] during their admission to [facility]. They currently have no uncontrolled symptoms and have established goals of care and we have signed off of their case. The patient has established follow-up with PCP. Images from the original note were not included. Department of General Surgery Surgical Service - 3 Resident Consult Note 08/07/2022 CHIEF COMPLAINT: No chief complaint on file. Reason for Consult: Rectal prolapse HISTORY OF PRESENT ILLNESS: Dayana Salamanca is a 86 y.o. female with significant past medical history of HTN who presented with intracranial hemorrhage. Surgery was consulted for evaluation of rectal prolapse. Patient states she has never has something like this before. Had a loose BM this am on the toilet had some pain and noted the small mass. Trauma evaluated the patient and noted a prolapse. She has minimal pain. Denies rectal surgery in the past. On evaluation patient was AF,HDS . Labs reviewed significant for:Hgb 11.0,, WBC 12.7, Cr 1.10 Imaging demonstrated stable right subdural hematoma and small subarachnoid. Past Medical History: Diagnosis Date HTN (hypertension) No past surgical history on file. Medications Prior to Admission: No current facility-administered medications on file prior to encounter. Current Outpatient Medications on File Prior to Encounter Medication Sig ascorbic acid (Vitamin C) 500 MG ER capsule Take 1 capsule by mouth daily. aspirin 325 MG tablet Take 325 mg by mouth daily. atorvastatin (Lipitor) 80 MG tablet Take 80 mg by mouth Nightly. cholecalciferol (Vitamin D-3) 25 MCG (1000 UT) capsule Take 1 capsule by mouth daily. furosemide (Lasix) 20 MG tablet Take 20 mg by mouth daily. lisinopril 5 MG tablet Take 5 mg by mouth daily. verapamil ER (Verelan) 240 MG 24 hr capsule Take 240 mg by mouth daily. [DISCONTINUED] atorvastatin (Lipitor) 80 MG tablet Take 80 mg by mouth daily. [DISCONTINUED] furosemide (Lasix) 20 MG tablet Take 20 mg by mouth daily. [DISCONTINUED] lisinopril 5 MG tablet Take 5 mg by mouth daily. [DISCONTINUED] verapamil SR (Calan SR) 180 MG ER tablet Take 180 mg by mouth Nightly. Do not crush or chew. Allergies: Diphenhydramine and Radford Social History Socioeconomic History Marital status: Tobacco Use Smoking status: Every Day Types: Cigarettes Smokeless tobacco: Never Substance and Sexual Activity Alcohol use: Yes Alcohol/week: 5.0 standard drinks Types: 5 Glasses of wine per week Drug use: Never No family history on file. REVIEW OF SYSTEMS: Review of Systems Constitutional: Positive for fatigue. Negative for chills and fever. HENT: Negative for congestion, ear discharge and trouble swallowing. Eyes: Negative for discharge. Respiratory: Negative for cough, chest tightness and shortness of breath. Cardiovascular: Negative for chest pain and leg swelling. Gastrointestinal: Negative for abdominal distention, abdominal pain, constipation, diarrhea, nausea and vomiting. Genitourinary: Negative for difficulty urinating and flank pain. Musculoskeletal: Negative for arthralgias and joint swelling. Mylagias Skin: Negative for color change and wound. Neurological: Negative for dizziness and light-headedness. Psychiatric/Behavioral: Negative for agitation and confusion. PHYSICAL EXAM: Vitals: 08/07/22 0844 BP: Pulse: 89 Resp: 21 Temp: SpO2: 99% I/O last 3 completed shifts: In: 7 (52.3 mL/kg) [P.O.:200; I.V.:1957 (47.4 mL/kg)] Out: 250 (6.1 mL/kg) [Urine:250 (0.2 mL/kg/hr)] Weight: 41.3 kg CONSTITUTIONAL: awake, alert, cooperative, no apparent distress NECK: Supple, symmetrical, trachea midline, no adenopathy LUNGS: No increased work of breathing, good air exchange CARDIOVASCULAR: Regular rate and rhythm ABDOMEN: Soft, non-distended, non-tender, no rebound, no guarding, no masses palpated RECTUM: full thickness rectal prolapse with intact mucosa, able to be reduced no hemorrhoids or other findings CHEST: no masses palpated, no axillary or supraclavicular adenopathy GENITAL/URINARY: Not examined MUSCULOSKELETAL: There is no redness, warmth, or swelling of the joints. Full range of motion noted. NEUROLOGIC: Awake, alert, oriented to name, place and time. SKIN: normal skin color, texture, multiple bruising over BL extremities and face DATA: CBC: Lab Results Component Value Date WBC 12.7 (H) 08/07/2022 RBC 3.64 (L) 08/07/2022 HGB 11.0 (L) 08/07/2022 HCT 32.6 (L) 08/07/2022 MCV 89.4 08/07/2022 MCH 30.1 08/07/2022 MCHC 33.7 08/07/2022 RDW 15.0 (H) 08/07/2022 PLT 235 08/07/2022 MPV 8.4 08/07/2022 BMP: Lab Results Component Value Date NA 135 08/07/2022 K 4.3 08/07/2022 CL 104 08/07/2022 CO2 27 08/07/2022 BUN 15 08/07/2022 CREATININE 1.10 (H) 08/07/2022 CALCIUM 7.9 (L) 08/07/2022 GLUCOSE 88 08/07/2022 Hepatic Function Panel: No results found for: ALKPHOS, ALT, AST, PROT, BILITOT, BILIDIR PT/INR: No results found for: PROTIME, INR Troponin: Lab Results Component Value Date TROPONINI <0.012 08/05/2022 LIPASE: No results found for: LIPASE IMAGING: Transthoracic echocardiogram (TTE) complete with contrast, bubble, strain, and 3D PRN Left Ventricle: Left ventricle size is normal. Normal wall thickness. Normal left ventricular systolic function. The EF by visual approximation is 55%. Normal wall motion. Right Ventricle: Right ventricle size is normal. Normal systolic function. Aortic Valve: Mild (1+) regurgitation. Left Atrium: Left atrium is moderately dilated. Right Atrium: Right atrium is mildly dilated. Pericardium: Left pleural effusion. IVC/SVC: IVC diameter is dilated and decreases less than 50% during inspiration; therefore the estimated right atrial pressure is elevated (~15 mmHg). No significant valvular abnormalities (mild AI, MR and TR). CT chest wo IV contrast Narrative: [facility] 1935 [id number] Exam Date/Time: 08/06/2022 05:19 Procedure: CT CHEST WO IV CONTRAST Ordering Provider: NORIEGA RATHNA Reason For Exam: b/l pleural effusions CLINICAL HISTORY: b/l pleural effusions COMPARISON: None Technique: Axial CT images were obtained of the chest. Images were reformatted in coronal and sagittal projections. Dose reduction was employed with automated exposure control. Intravenous contrast: None FINDINGS: Lungs: Bibasilar atelectasis and consolidation with internal air bronchograms. Septal thickening and mild patchy groundglass opacities seen in the upper lungs. Pleura: Large right and moderate left pleural effusion. Heart/Great vessels: The heart is moderately enlarged with no pericardial effusion. There is mild to moderate coronary artery calcification. The aorta and pulmonary arteries are normal in caliber. Mediastinum/Tatiana: No clear enlargement of mediastinal, hilar, or axillary lymph nodes although evaluation is limited by noncontrast technique. No mediastinal masses seen Visualized Upper Abdomen: No significant abnormality Chest wall/Lower neck: Thyroid is normal in appearance. Contour abnormality in the anterior neck soft tissues suggestive of prior tracheostomy. Bones: No suspicious osseous lesions. Impression: Large right and moderate left pleural effusion with adjacent atelectasis and areas of internal air bronchograms which may be due to superimposed pneumonia. Patchy interstitial thickening and groundglass opacities in the upper lungs are likely related to additional infectious/inflammatory changes or possible interstitial pulmonary edema. Report Dictated on Electronically Signed By: Seferino Perez Electronically Signed Date/Time: 08/06/2022 9:[address] head wo IV contrast Narrative: [facility] Name: DAY[facility] 1935 [id number] Exam Date/Time: 08/06/2022 05:19 Procedure: CT HEAD WO IV CONTRAST Ordering Provider: NORIEGA RATHNA Reason For Exam: Traumatic brain injury (TBI), new or progressive neuro deficits CT HEAD: CLINICAL INDICATION: Traumatic brain injury, new onset neurologic deficits TECHNIQUE: Transaxial CT sequence performed through the head with 3 mm reconstruction. Sagittal and Coronal reconstruction images included. COMPARISON: Head CT dated 08/05/2022 from 1851 hours performed at outside hospital FINDINGS: There is redemonstration of a right cerebral hemispheric subdural hematoma, measuring up to 7 mm in maximal thickness. There is minimal effacement of the subjacent cortical sulci, predominantly about the right temporal lobe. There is a tiny focus of subarachnoid hemorrhage about the left frontal lobe (series 3, image 28). No significant midline shift. Ventricles and sulci are prominent, consistent with age-related cerebral volume loss. There are scattered foci of hypoattenuation in the periventricular and subcortical white matter, which is nonspecific, but commonly seen with chronic small vessel ischemia. No CT evidence of an acute large territorial infarction. Vascular calcifications noted at the skull base. Imaged paranasal sinuses and mastoid air cells are well aerated. Calvarium is unremarkable. There is minimal left preseptal soft tissue swelling. No depressed skull fracture. Impression: 1. Stable right cerebral hemispheric subdural hematoma. No significant mass effect or midline shift. 2. Stable small focus of subarachnoid hemorrhage along the left frontal lobe. Report Dictated on Electronically Signed By: Uriel Caban Electronically Signed Date/Time: 08/06/2022 7:37 AM EDT ECG 12 lead Atrial fibrillation LVH with secondary repolarization abnormality Inferior infarct, old Anterior infarct, old ASSESSMENT AND PLAN: This is a 86 y.o. female with Rectal prolapse - able to be reduced at bedside 08/06 - no acute intervention can discuss elective repair if this becomes a recurrent problem as an outpatient DAVID MAE MD General Surgery Resident 08/07/22 9:32 AM This note may have been dictated using [employer] Edition 2.6 and/or [employer] Voice Recognition Feature. The document was proofread; however, unrecognized voice recognition director stars errors may be present. Associated Order(s): IP CONSULT TO NEUROSURGERY NEUROSURGERY and SPINE CONSULT NOTE Patient Name: Dayana Salamanca Patient : 1935 PCP: Deidre Borrero MD History of Present Ilness: 86 y.o. presents with history of having fallen at approximately 8 AM yesterday morning. She was subsequently seen at [facility] where a CAT scan was performed and she was transferred to [facility]. She apparently did not lose consciousness. She currently has no complaints and neurological review of systems is negative. She appears to be functioning at her baseline. Past Medical History: Past Medical History: Diagnosis Date HTN (hypertension) Past Surgical History: No past surgical history on file. Home Medications: Prior to Admission medications Not on File Allergies: Diphenhydramine and Radford Social History: TOBACCO: reports that she has been smoking cigarettes. She has never used smokeless tobacco. ETOH: reports current alcohol use of about 5.0 standard drinks per week. RECREATIONAL DRUG USE: Social History Substance and Sexual Activity Drug Use Never Family History: No family history on file. Physical Examination: Vitals: 08/06/22 0855 BP: Pulse: Resp: Temp: SpO2: 99% Physical Exam She is awake alert oriented x3. Cranial nerves are age-appropriate. She has ecchymosis around her left eye. She is conversive speech is appropriate she follows commands and moves all extremities strongly and purposefully without focal areas of weakness. There are no focal objective neurological deficits. Results Labs: Last 24hrs Recent Results (from the past 24 hour(s)) Electrocardiogram, 12-lead Collection Time: 08/05/22 11:12 PM Result Value Ref Range Heart Rate 84 bpm QRSD Interval 115 ms QT Interval 435 ms QTC Interval 514 ms P [place] degrees QRS [place] -29 degrees T Wave [place] 131 degrees ND Interval ms CBC auto differential Collection Time: 08/05/22 11:18 PM Result Value Ref Range Auto WBC 9.7 3.6 - 10.7 10*3/uL RBC 3.75 (L) 3.8 - 5.20 10*6/uL Hemoglobin 11.1 (L) 11.7 - 16.0 g/dL Hematocrit 33.0 (L) 35.0 - 47.0 % MCV 87.9 80.0 - 98.0 fL MCH 29.7 26.0 - 34.0 pg MCHC 33.7 32.0 - 36.0 % RDW 14.1 11.5 - 14.5 % Platelets 247 140 - 440 10*3/uL MPV 8.4 7.4 - 12.4 fL nRBC 0.0 0.0 - 2.0 /100 WBCs Neutrophils Relative 74.8 40.0 - 80.0 % Lymphocytes Relative 13.2 (L) 20.0 - 40.0 % Monocytes Relative 10.4 (H) 2.0 - 10.0 % Eosinophils Relative 0.7 (L) 1.0 - 6.0 % Basophils Relative 0.9 0.0 - 2.0 % Neutrophils Absolute 7.3 (H) 1.8 - 7.0 10*3/uL Lymphocytes Absolute 1.3 1.0 - 4.3 10*3/uL Monocytes Absolute 1.0 (H) 0.0 - 0.8 10*3/uL Eosinophils Absolute 0.1 0.0 - 0.5 10*3/uL Basophils Absolute 0.1 0.0 - 0.2 10*3/uL Basic metabolic panel Collection Time: 08/05/22 11:18 PM Result Value Ref Range SODIUM 136 135 - 145 mmol/L POTASSIUM 3.8 3.5 - 5.1 mmol/L CHLORIDE 102 98 - 107 mmol/L CARBON DIOXIDE 33 (H) 22 - 30 mmol/L UREA NITROGEN 9 7 - 17 mg/dL CREATININE 1.02 0.52 - 1.04 mg/dL GLUCOSE 100 70 - 100 mg/dL CALCIUM 8.2 (L) 8.4 - 10.4 mg/dL ANION GAP 1 (L) 3 - 13 mmol/L eGFR 53.7 (L) >60.0 mL/min/1.73m*2 Troponin I Collection Time: 08/05/22 11:18 PM Result Value Ref Range TROPONIN I <0.012 0.000 - 0.034 ng/mL ECG 12 lead Collection Time: 08/05/22 11:41 PM Result Value Ref Range Heart Rate 82 bpm QRSD Interval 112 ms QT Interval 423 ms QTC Interval 496 ms P [place] degrees QRS [place] -29 degrees T Wave [place] 121 degrees ND Interval ms CBC auto differential Collection Time: 08/06/22 3:31 AM Result Value Ref Range Auto WBC 8.0 3.6 - 10.7 10*3/uL RBC 3.61 (L) 3.8 - 5.20 10*6/uL Hemoglobin 10.8 (L) 11.7 - 16.0 g/dL Hematocrit 32.1 (L) 35.0 - 47.0 % MCV 89.1 80.0 - 98.0 fL MCH 30.0 26.0 - 34.0 pg MCHC 33.6 32.0 - 36.0 % RDW 14.6 (H) 11.5 - 14.5 % Platelets 224 140 - 440 10*3/uL MPV 8.4 7.4 - 12.4 fL nRBC 0.0 0.0 - 2.0 /100 WBCs Neutrophils Relative 66.9 40.0 - 80.0 % Lymphocytes Relative 18.5 (L) 20.0 - 40.0 % Monocytes Relative 12.0 (H) 2.0 - 10.0 % Eosinophils Relative 1.5 1.0 - 6.0 % Basophils Relative 1.1 0.0 - 2.0 % Neutrophils Absolute 5.3 1.8 - 7.0 10*3/uL Lymphocytes Absolute 1.5 1.0 - 4.3 10*3/uL Monocytes Absolute 1.0 (H) 0.0 - 0.8 10*3/uL Eosinophils Absolute 0.1 0.0 - 0.5 10*3/uL Basophils Absolute 0.1 0.0 - 0.2 10*3/uL Basic metabolic panel Collection Time: 08/06/22 3:31 AM Result Value Ref Range SODIUM 137 135 - 145 mmol/L POTASSIUM 4.0 3.5 - 5.1 mmol/L CHLORIDE 105 98 - 107 mmol/L CARBON DIOXIDE 31 (H) 22 - 30 mmol/L UREA NITROGEN 10 7 - 17 mg/dL CREATININE 0.96 0.52 - 1.04 mg/dL GLUCOSE 94 70 - 100 mg/dL CALCIUM 8.0 (L) 8.4 - 10.4 mg/dL ANION GAP 1 (L) 3 - 13 mmol/L eGFR 57.7 (L) >60.0 mL/min/1.73m*2 Magnesium Collection Time: 08/06/22 3:31 AM Result Value Ref Range MAGNESIUM 2.0 1.6 - 2.3 mg/dL Phosphorus Collection Time: 08/06/22 3:31 AM Result Value Ref Range PHOSPHORUS 4.0 2.5 - 4.5 mg/dL ECG 12 lead Collection Time: 08/06/22 7:13 AM Result Value Ref Range Heart Rate 76 bpm QRSD Interval 111 ms QT Interval 435 ms QTC Interval 490 ms P [place] degrees QRS [place] -32 degrees T Wave [place] 114 degrees ND Interval ms Radiology Personal review: CT head reveals small acute right-sided subdural hematoma without significant mass effect or midline shift. ASSESSMENT / PLAN : She was not on any anticoagulation. She is status post head trauma with small right acute subdural hematoma. There are no surgical indications at this time. It is possible that as this becomes subacute it could enlarge and require evacuation. At this time I would recommend observation. Recommend repeat CT head in the next 2 to 3 days. Discharge planning. She can follow-up with me in approximately 2 to 3 weeks in the office. At this time she is clinically and radiographically stable. As noted above there is risk that this could enlarge as it becomes subacute. We will sign off. Please let me know if I can be of further assistance during this inpatient stay. I spent over 51% of total time 60m counseling/coordinating care and provided discussion regarding sdh. Associated Order(s): IP CONSULT TO PALLIATIVE CARE Consult acknowledged, discussed with eleazar Bui for full consult to be completed 08/08/22, aware should needs change to notify weekend covering provider. Associated Order(s): IP CONSULT TO GERIATRICS [facility] Geriatric Medicine Inpatient Consult Service Admission Date: 08/05/2022 Admission Status: INPATIENT Chief Complaint: Left wrist pain Reason for Appointment Geriatrics consulted for Trauma due to fall. Management. Assessment Principal Problem: Intracranial hemorrhage (HCC) Plan # Unwitnessed fall # Debility -Multiple risk factors including decreased hearing, decreased vision, and weakness, chronic medical condition -Continue PT/OT as able while inpatient -Vitamin D pending -Check orthostatic vital signs as able -Medications with associated fall risk include: antidiuretics - CT head: stable Rt. subdural hematoma: Conservative management per Neurosurgery. # Acute pain management - Currently on dilaudid prn - Recommend Scheduled Tylenol 1g tid # Chronic medical conditions - ProBNP 3,880, Pending Echo - Katia: Lt. Pleural effusion. - SARS-CoV-2 pending - Continue current management per primary team. # Cognitive Impairment - MMSE , CDT 04/30 Recent trauma, pain, and vision could be impacting test scores. - No baseline cognition impairment known - Advised to follow up with [facility] after discharge. # High Risk for Delirium --Etiology likely: age, hospital envrionment, decreased hearing and vision. --Encourage PO intake, time up in chair, family visits, supervised ambulation, and sleep hygiene --If agitated, assess for and consider treating for pain --QTc= 490 --No antipsychotic unless patient is danger to self/others/treatment - Monitor for constipation/urinary retention - last BM unknown --Possible medication contributions: NA - Implement delirium protocol per ICU protocol. Subjective: HPI 86 y.o. year-old female presented from home for unwitnessed fall. Patient reports that she lives in a trailer home alone with her 2 nieces living nearby, 1 lives 3 trailers away and the other 5 trailers away. She reports getting out of her recliner around 7:30 AM, tripping over the carpet while she was walking towards the kitchen to get her second cup of coffee. She tried to catch herself with her left hand but landed on the floor hitting the left side of her face and left wrist. She denies any loss of consciousness. No recent fall. She last fell about 4 years ago. She reports drinking small cup of wine 2 times a week and her last drink was the previous night before she fell. Patient reports that she was born and raised in [place] but moved to [place] many years after she got . Lived in different states. of 48 years in 2002. Patient moved back to [place] in August 2021. Has a son that lives in [place]. Visited him and his family in December 2021. Patient had a great time with her grandchildren, son and . Labs: remarkable for Pro BNP 3, 880 Cxray: Lt Pulmonary effusion, glass ground effusion. CT head consistent with stable right sided subdural hematoma. Conversation with caregiver: Peri ( niece- [phone]). -Peri was on the phone with the patient when she had a fall in her trailer at around 7 30-9 a.m. - Reports has no major concern for the patient. Advance Care Planning Healthcare Power ofAttorney: Yes, [employer] Power of Excavating Supervisor: Yes, SonTres Living Will:Yes Code Status: Full Code Allergies Allergen Reactions Diphenhydramine Radford Current Facility-Administered Medications: acetaminophen (Ofirmev) injection 600 mg, 15 mg/kg, IntraVENous, q8h, Lillian Campbell MD, Stopped at 08/06/22 0119 famotidine (Pepcid) injection 20 mg, 20 mg, IntraVENous, BID, Annabelle Bob MD hydrALAZINE (Apresoline) injection 10 mg, 10 mg, IntraVENous, q4h PRN, Annabelle Bob MD ipratropium-albuterol (Duo-Neb) 0.5-2.5 mg/3 mL nebulizer solution 3 mL, 3 mL, Nebulization, TID, Lillian Campbell MD labetalol (Normodyne,Trandate) injection 10 mg, 10 mg, IntraVENous, q4h PRN, Annabelle Bob MD ondansetron ODT (Zofran-ODT) disintegrating tablet 4 mg, 4 mg, Oral, q8h PRN OR ondansetron (Zofran) injection 4 mg, 4 mg, IntraVENous, q6h PRN, Annabelle Bob MD polyethylene glycol (PEG) 3350 (Miralax) packet 17 g, 17 g, Oral, Daily PRN, Lillian Campbell MD sodium chloride 0.9 % infusion, 100 mL/hr, IntraVENous, Continuous, Annabelle Bob MD Past Medical History: Diagnosis Date HTN (hypertension) No past surgical history on file. Social History Social History Tobacco Use Smoking status: Every Day Types: Cigarettes Smokeless tobacco: Never Substance Use Topics Alcohol use: Yes Alcohol/week: 5.0 standard drinks Types: 5 Glasses of wine per week Social History Social History Narrative Not on file Patient Currently Lives: Trailer home Level of FamilySupport: The patient receives support from her son and nieces . Community Resources: noNone Elder Abuse: no Education Level: 11th grade Family History No family history on file. No family status information on file. Family history reviewed as above Review of Systems Constitutional: Positive for fatigue. Negative for activity change, appetite change, chills, fever and unexpected weight change. HENT: Negative for congestion, dental problem, ear pain, hearing loss, postnasal drip and trouble swallowing. Eyes: Negative for discharge and redness. Respiratory: Negative for cough, chest tightness and shortness of breath. Cardiovascular: Negative for chest pain, palpitations and leg swelling. Gastrointestinal: Negative for abdominal pain, nausea and vomiting. Endocrine: Negative for cold intolerance and heat intolerance. Genitourinary: Negative for dysuria, frequency and urgency. Musculoskeletal: Negative for arthralgias, back pain, gait problem, joint swelling and neck stiffness. Skin: Positive for wound. Negative for color change and rash. Neurological: Negative for dizziness, weakness, light-headedness, numbness and headaches. Hematological: Does not bruise/bleed easily. Psychiatric/Behavioral: Negative for behavioral problems, confusion, hallucinations, sleep disturbance and suicidal ideas. Depression Screening: PHQ-2 Over the past 2 weeks, how often have you been botheredby any of the following problems? 1) Little interest or pleasure in doing things: No 2)Felling down, depressed, or hopeless: No Functional Status (I: Independent, A: Assisted, D: Dependent) ADLs I A D Notes Bathing [x] [] [] Dressing [x] [] [] Toileting [x] [] [] Transfers [x] [] [] Feeding [x] [] [] Ambulation [x] [] [] Assistive devices: none IADLs I A D { Telephone [x] [] [] Transportation [] [] [x] Driving safety concerns: No Shopping [] [x] [] Meal prep [x] [] [] Housework [x] [] [] Medications [x] [] [] Finances [x] [] [] Objective: BP 123/51 Pulse 82 Temp 36.4 C (97.6 F) (Temporal) Resp 14 Ht 5' (1.524 m) Wt 91 lb 0.8 oz (41.3 kg) SpO2 96% BMI 17.78 kg/m Intake/Output Summary (Last 24 hours) at 08/06/2022 0746 Last data filed at 08/06/2022 0043 Gross per 24 hour Intake -- Output 250 ml Net -250 ml Wt Readings from Last 3 Encounters: 08/05/22 91 lb 0.8 oz (41.3 kg) Physical Exam Constitutional: Appearance: Normal appearance. Comments: Frail elderly woman Left sided raccoon eye HENT: Head: Normocephalic and atraumatic. Right Ear: External ear normal. Left Ear: External ear normal. Nose: Nose normal. No congestion. Mouth/Throat: Mouth: Mucous membranes are dry. Pharynx: Oropharynx is clear. Eyes: Extraocular Movements: Extraocular movements intact. Conjunctiva/sclera: Conjunctivae normal. Comments: Left sided raccoon eye. Cardiovascular: Rate and Rhythm: Regular rhythm. Heart sounds: Normal heart sounds. No murmur heard. Pulmonary: Effort: Pulmonary effort is normal. No respiratory distress. Breath sounds: Normal breath sounds. No wheezing. Abdominal: General: Bowel sounds are normal. Palpations: Abdomen is soft. Tenderness: There is no abdominal tenderness. Musculoskeletal: General: Deformity and signs of injury present. No swelling. Cervical back: Normal range of motion. No rigidity or tenderness. Comments: Left arm in cast Skin: General: Skin is dry. Coloration: Skin is not jaundiced. Findings: Lesion present. No bruising or rash. Neurological: General: No focal deficit present. Mental Status: She is alert and oriented to person, place, and time. Mental status is at baseline. Motor: No weakness. Gait: Gait normal. Psychiatric: Mood and Affect: Mood normal. Behavior: Behavior normal. Mini-Mental Status Exam: Domains Points Correct Oriented to: Year, Season, Month, Day, and Date STATE, TOWN, HOSPITAL, and FLOOR 9 Registration (immediate recall) Apple, Table, Juliana # of Trials: 1 3 Serial 7s Use if 8th grade education or better 93, 86, 79, 72, 65 5 WORLD Backwards Use if <8th grade education D L R O W Not used Delayed 3 item recall Apple, Table, Juliana 2 Repetition Repeat after me: NO IFS, ANDS, OR BUTS 1 3 Step Command Take paper in right hand, fold it in half, & set on floor NA Naming Watch Pen 2 Reading Read & Obey Present: Close your eyes 1 Write a sentence 1 Copy Design (overlapping pentagons) 0 MMSE Score: Clock Drawing Test: Correct Elements (1 pt each): Total Score / Time Instructions: Ten past eleven Scores < 5 out of 7 correlate with significantly more driving errors J Gen Gizzard Peeler Med 2005; 20:240-244 Labs and Imaging: Recent Results (from the past 24 hour(s)) Electrocardiogram, 12-lead Collection Time: 08/05/22 11:12 PM Result Value Ref Range Heart Rate 84 bpm QRSD Interval 115 ms QT Interval 435 ms QTC Interval 514 ms P [place] degrees QRS [place] -29 degrees T Wave [place] 131 degrees ND Interval ms CBC auto differential Collection Time: 08/05/22 11:18 PM Result Value Ref Range Auto WBC 9.7 3.6 - 10.7 10*3/uL RBC 3.75 (L) 3.8 - 5.20 10*6/uL Hemoglobin 11.1 (L) 11.7 - 16.0 g/dL Hematocrit 33.0 (L) 35.0 - 47.0 % MCV 87.9 80.0 - 98.0 fL MCH 29.7 26.0 - 34.0 pg MCHC 33.7 32.0 - 36.0 % RDW 14.1 11.5 - 14.5 % Platelets 247 140 - 440 10*3/uL MPV 8.4 7.4 - 12.4 fL nRBC 0.0 0.0 - 2.0 /100 WBCs Neutrophils Relative 74.8 40.0 - 80.0 % Lymphocytes Relative 13.2 (L) 20.0 - 40.0 % Monocytes Relative 10.4 (H) 2.0 - 10.0 % Eosinophils Relative 0.7 (L) 1.0 - 6.0 % Basophils Relative 0.9 0.0 - 2.0 % Neutrophils Absolute 7.3 (H) 1.8 - 7.0 10*3/uL Lymphocytes Absolute 1.3 1.0 - 4.3 10*3/uL Monocytes Absolute 1.0 (H) 0.0 - 0.8 10*3/uL Eosinophils Absolute 0.1 0.0 - 0.5 10*3/uL Basophils Absolute 0.1 0.0 - 0.2 10*3/uL Basic metabolic panel Collection Time: 08/05/22 11:18 PM Result Value Ref Range SODIUM 136 135 - 145 mmol/L POTASSIUM 3.8 3.5 - 5.1 mmol/L CHLORIDE 102 98 - 107 mmol/L CARBON DIOXIDE 33 (H) 22 - 30 mmol/L UREA NITROGEN 9 7 - 17 mg/dL CREATININE 1.02 0.52 - 1.04 mg/dL GLUCOSE 100 70 - 100 mg/dL CALCIUM 8.2 (L) 8.4 - 10.4 mg/dL ANION GAP 1 (L) 3 - 13 mmol/L eGFR 53.7 (L) >60.0 mL/min/1.73m*2 Troponin I Collection Time: 08/05/22 11:18 PM Result Value Ref Range TROPONIN I <0.012 0.000 - 0.034 ng/mL ECG 12 lead Collection Time: 08/05/22 11:41 PM Result Value Ref Range Heart Rate 82 bpm QRSD Interval 112 ms QT Interval 423 ms QTC Interval 496 ms P [place] degrees QRS [place] -29 degrees T Wave [place] 121 degrees ND Interval ms CBC auto differential Collection Time: 08/06/22 3:31 AM Result Value Ref Range Auto WBC 8.0 3.6 - 10.7 10*3/uL RBC 3.61 (L) 3.8 - 5.20 10*6/uL Hemoglobin 10.8 (L) 11.7 - 16.0 g/dL Hematocrit 32.1 (L) 35.0 - 47.0 % MCV 89.1 80.0 - 98.0 fL MCH 30.0 26.0 - 34.0 pg MCHC 33.6 32.0 - 36.0 % RDW 14.6 (H) 11.5 - 14.5 % Platelets 224 140 - 440 10*3/uL MPV 8.4 7.4 - 12.4 fL nRBC 0.0 0.0 - 2.0 /100 WBCs Neutrophils Relative 66.9 40.0 - 80.0 % Lymphocytes Relative 18.5 (L) 20.0 - 40.0 % Monocytes Relative 12.0 (H) 2.0 - 10.0 % Eosinophils Relative 1.5 1.0 - 6.0 % Basophils Relative 1.1 0.0 - 2.0 % Neutrophils Absolute 5.3 1.8 - 7.0 10*3/uL Lymphocytes Absolute 1.5 1.0 - 4.3 10*3/uL Monocytes Absolute 1.0 (H) 0.0 - 0.8 10*3/uL Eosinophils Absolute 0.1 0.0 - 0.5 10*3/uL Basophils Absolute 0.1 0.0 - 0.2 10*3/uL Basic metabolic panel Collection Time: 08/06/22 3:31 AM Result Value Ref Range SODIUM 137 135 - 145 mmol/L POTASSIUM 4.0 3.5 - 5.1 mmol/L CHLORIDE 105 98 - 107 mmol/L CARBON DIOXIDE 31 (H) 22 - 30 mmol/L UREA NITROGEN 10 7 - 17 mg/dL CREATININE 0.96 0.52 - 1.04 mg/dL GLUCOSE 94 70 - 100 mg/dL CALCIUM 8.0 (L) 8.4 - 10.4 mg/dL ANION GAP 1 (L) 3 - 13 mmol/L eGFR 57.7 (L) >60.0 mL/min/1.73m*2 Magnesium Collection Time: 08/06/22 3:31 AM Result Value Ref Range MAGNESIUM 2.0 1.6 - 2.3 mg/dL Phosphorus Collection Time: 08/06/22 3:31 AM Result Value Ref Range PHOSPHORUS 4.0 2.5 - 4.5 mg/dL ECG 12 lead Collection Time: 08/06/22 7:13 AM Result Value Ref Range Heart Rate 76 bpm QRSD Interval 111 ms QT Interval 435 ms QTC Interval 490 ms P [place] degrees QRS [place] -32 degrees T Wave [place] 114 degrees ND Interval ms No results found for: TSH No components found for: B12 No results found for: VITD25 Reviewed: active problem list, medication list, allergies, family history, social history, notes from last encounter, notes from last several encounters, lab results, imaging Follow-up: prn Communication of Consult Recommendations: Assessment and recommendations communicated to primary service Associated attestation - Orly Vizcaino MD - 08/06/2022 8:39 PM EDT Attending Supervising Physician s Attestation Statement I saw and evaluated the patient. I discussed the findings and plans with Geriatric fellow and agree as documented in her note. Changes and updates in blue Dayana Salamanca is an 86 year old female with PMH of hypertension who presented to the hospital after a fall. Patient reported she tripped over her carpet and fell. She hit her left hand and face. She was found to have an intracranial hemorrhage. She was seen by neurosurgery today. She also sustained a left distal radius and ulna fracture. Also found to have pleural effusions. Orthopedics saw her for the left arm fracture. No acute surgical intervention. JESUS MANUEL CONTRERAS. Reviewed H and P, ortho consult note, neurosurgery consult note Patient states she is doing OK today. She has some left wrist pain. She is eager to return home to her cats. Says she has family members who will help her. Lab review: CBC today: hgb 10.8 BMP today: CO2: 31 A/P Debility, Fall Risk factors include: age, physical deconditioning, vision and hearing impairment, alcohol use, heart failure? (echo pending), use of throw rug (recommended not using those in her home anymore) PT and OT Check Vitamin D Recommend orthostatic vital signs Acute Pain due to trauma -agree with scheduled acetaminophen. Unless there is a contraindication such as liver disease, this could be increased up to 1000 mg TID -agree with prn narcotic for breakthrough pain (currently on dilaudid or oxycodone). Low doses are available. Recommend lowest effective doses for breakthrough pain. At Risk for Delirium -Risk factors include: pain/trauma, age -Delirium Protocol -Recommend Melatonin nightly prn insomnia -Avoid sedating/anticholinergic medications -Encourage family visits -Encourage sleep hygiene -Minimize barriers to nutrition -Optimize sensory input and access to assistive devices where indicated -Encourage time up in chair - including at meals - as able -Unless contraindicated, encourage regular ambulation with assistance -D/c Burton, restraints, IV lines, as able documented in this encounter [facility] 08-10-2022 Note Formatting of this n ote might be different from the original. Patient Choice Patient Name: DAYANA SALAMANCA Date of : 1935 All Providers Sent Referral Name: [facility] Address: [address] [place] [address] T [facility] 08-10-2022 Note Formatting of this n ote might be different from the original. [facility] able to accept, submitting for insurance approval. T [facility] 08-10-2022 Note Formatting of this n ote might be different from the original. Medical Plan: Chest tube in place. CXR completed. PT/OT recs FBT. Met with patient discussed therapy recommendations would like to go to [facility]. Referral sent. Will need insurance approval. Will follow. Discharge plan:[facility]? Discharge barriers: none [facility] 08-08-2022 Note Attestation signed by Robert Mitchell MD at 08/08/2022 9:55 PM Attending physician addendum: I was immediately available to the bedside for the entire procedure. Patient tolerated procedure well. Arnaldo Mitchell MD [facility] Trauma, Surgical Critical Care, & General Surgery Division of Trauma Department of Surgery Formerly [facility] P Chest Tube Procedure Note Indication: Pneumothorax Time Out: Completed immediately prior to the start of the procedure which included verification of the correct patient, correct site and agreement on the procedure to be done. Consent: The indications, risks, benefits, alternatives to the procedure were explained to the patient/surrogate decision maker and their questions answered. Consent was obtained to proceed with the procedure. Anesthetic: 1% Lidocaine was utilized to anesthetize the skin, subcutaneous tissue, and superior aspect of the rib periosteum and parietal pleura Procedure/Findings: Pigtail Chest Tube: The patient was positioned appropriately for chest tube placement. The right side was prepped with chlorhexidine and draped in a sterile fashion... A large bore needle was introduced through the intercostal space and pleural fluid was aspirated. A guidewire was passed through the needle and the needle was subsequently removed. After a small skin incision & dilation, a/an 14 Malian pigtail catheter was passed over the guidewire without resistance. The guidewire was then removed and the pigtail was adjusted for return of 700 ml of serous fluid. Chest tube was connected to a closed chest drainage system at -20 cm H20 to suction. The pigtail was suture in placed and an occlusive dressing was applied. All connections were secured and chest tube was secured to chest wall. Post procedure breath sounds: improved. Estimated Blood Loss (excluding fluid removed): None Complications: No apparent complications Follow-up Chest X-ray: Ordered. Proceduralist: I personally performed the procedure documented as signed by this procedure note. Tests Superintendent(s): Dr. Johnson Supervision: Supervision was required for this procedure. Dr. Johnson was physically present and supervised all singletary elements of the procedure. [facility] 08-08-2022 Note Physical Therapy Patient currently having chest tube place. PT evaluation held. [facility] 08-08-2022 Procedure note Procedure(s): CHEST TUBE INSERTION Chest Tube Procedure Note Indication: Pneumothorax Time Out: Completed immediately prior to the start of the procedure which included verification of the correct patient, correct site and agreement on the procedure to be done. Consent: The indications, risks, benefits, alternatives to the procedure were explained to the patient/surrogate decision maker and their questions answered. Consent was obtained to proceed with the procedure. Anesthetic: 1% Lidocaine was utilized to anesthetize the skin, subcutaneous tissue, and superior aspect of the rib periosteum and parietal pleura Procedure/Findings: Pigtail Chest Tube: The patient was positioned appropriately for chest tube placement. The right side was prepped with chlorhexidine and draped in a sterile fashion... A large bore needle was introduced through the intercostal space and pleural fluid was aspirated. A guidewire was passed through the needle and the needle was subsequently removed. After a small skin incision & dilation, a/an 14 Malian pigtail catheter was passed over the guidewire without resistance. The guidewire was then removed and the pigtail was adjusted for return of 700 ml of serous fluid. Chest tube was connected to a closed chest drainage system at -20 cm H20 to suction. The pigtail was suture in placed and an occlusive dressing was applied. All connections were secured and chest tube was secured to chest wall. Post procedure breath sounds: improved. Estimated Blood Loss (excluding fluid removed): None Complications: No apparent complications Follow-up Chest X-ray: Ordered. Proceduralist: I personally performed the procedure documented as signed by this procedure note. Tests Superintendent(s): Dr. Johnson Supervision: Supervision was required for this procedure. Dr. Johnson was physically present and supervised all singletary elements of the procedure. Associated attestation - Robert Mitchell MD - 08/08/2022 9:55 PM EDT Attending physician addendum: I was immediately available to the bedside for the entire procedure. Patient tolerated procedure well. Arnaldo Mitchell MD FACS Trauma, Surgical Critical Care, & General Surgery Division of Trauma Department of Surgery [facility] P [facility] 08-08-2022 Procedure note Procedure(s): CHEST TUBE INSERTION Chest Tube Procedure Note Indication: Pneumothorax Time Out: Completed immediately prior to the start of the procedure which included verification of the correct patient, correct site and agreement on the procedure to be done. Consent: The indications, risks, benefits, alternatives to the procedure were explained to the patient/surrogate decision maker and their questions answered. Consent was obtained to proceed with the procedure. Anesthetic: 1% Lidocaine was utilized to anesthetize the skin, subcutaneous tissue, and superior aspect of the rib periosteum and parietal pleura Procedure/Findings: Pigtail Chest Tube: The patient was positioned appropriately for chest tube placement. The right side was prepped with chlorhexidine and draped in a sterile fashion... A large bore needle was introduced through the intercostal space and pleural fluid was aspirated. A guidewire was passed through the needle and the needle was subsequently removed. After a small skin incision & dilation, a/an 14 Malian pigtail catheter was passed over the guidewire without resistance. The guidewire was then removed and the pigtail was adjusted for return of 700 ml of serous fluid. Chest tube was connected to a closed chest drainage system at -20 cm H20 to suction. The pigtail was suture in placed and an occlusive dressing was applied. All connections were secured and chest tube was secured to chest wall. Post procedure breath sounds: improved. Estimated Blood Loss (excluding fluid removed): None Complications: No apparent complications Follow-up Chest X-ray: Ordered. Proceduralist: I personally performed the procedure documented as signed by this procedure note. Tests Superintendent(s): Dr. Johnson Supervision: Supervision was required for this procedure. Dr. Johnson was physically present and supervised all singletary elements of the procedure. Associated attestation - Robetr Mitchell MD - 08/08/2022 9:55 PM EDT Attending physician addendum: I was immediately available to the bedside for the entire procedure. Patient tolerated procedure well. Arnaldo Mitchell MD FACS Trauma, Surgical Critical Care, & General Surgery Division of Trauma Department of Surgery [facility] P documented in this encounter [facility] 08-08-2022 Plan of care note S/p right thoracentesis on 08/07. Chest xray from this morning demonstrated small right apical pneumothorax. Discussed with radiologists who recommend repeat chest x-ray this afternoon to re-evaluate pneumothorax. Communicated this to Dr. Garcia via Secure Chat. [employer] Phone: 08-08-2022 Consult note Formatting of th is note is different from the original. Images from the original note were not included. Palliative Care Initial Consult Chief Complaint: Dayana Salamanca is a 86 y.o. female with chief complaint of fall. Palliative Care is signing off, please re-consult if needed. (add SIGNOFFTRANSITION dotphrase below) Assessment/Plan Fall, initial encounter - at home, tripped over carpet - resultant in R SDH, L wrist fracture SDH - small R - neurosurgery with repeat CTH and follow up as outpatient Pleural effusion - per sicu furosemide Pain due to trama - scheduled tylenol - oarrs reviewed, opiate naive - without pain today - appropriate prn oxycodone 2.5-5mg available without need Debility - pending PT/OT - resides in trailer with 2 cats - nieces live 2-3 trailers away from her and visit often L radial and ulnar fracture - orthopedics reduced, splinted, no surgical intervention needed, follow up as outpatient Palliative Care Encounter -full code - palliative consulted as trauma trigger given elderly fall at home with SDH. Introduced myself and service, why consulted - tells me she has living will, when asked what it said, tells me do not resuscitate me, if I'm dying let me asked if she has [place] DNR form, tells me she does not, clarified no chest compressions, defibrillation, intubation or vent supports, agrees, aware will fill out [place] form for portability and provide her with original to have with her paperwork. Is very thankful - [place] DNRCCA-DNI form filled out and placed on chart - goals clear, without symptoms will sign off at this time, should needs change during hospitalization please re-consult Total of 65 minutes spent on this encounter including Chart review, Patient visit and exam, Documentation in EHR, Care coordination, Communicating with primary attending or other consultants, and Counseling and educating patient/family/caregiver. Discharge planning: Ready for discharge from Palliative Care perspective, no follow-up needed Patient meets criteria for general inpatient hospice care including the following: N/A - Palliative Care Patient Referrals to: None Discussed patient and the plan of care with the other interdisciplinary team (IDT) members of Palliative Care Team, and with Primary Attending, Patient, and Floor Nurse Insert attestation statement here if applicable (.disupervision) or (.npattest) I have discussed the patient's case and plan of care with my collaborating physician Dr. Estrella Subjective: Hospital days prior to consult: 0 Trauma Consult: yes. (If yes, please add .traumapall dotphrase for tracking purposes.) This is a Palliative Care consultation in a Trauma patient. Subjective/Events This is a 86 yo lady living at home independently with her 2 cats, PMHx HTN on very minimal medications, tripped over carpet in home resultant in fall, went to [facility] CTH revealing SDH transferred to [facility] for care. Repeat CTH with stability, no neurosurgical interventions needed, also suffered L ulnar and radial fracture with reduction and splinting. Palliative care consulted for goals of care Patient awake in bed in NAD, actually without pain, CP, abdominal pain, headache, no vision changes, breathing is easy and not labored, no nausea, vomiting, diarrhea or constipation, documented BM 4.16/23. appetite good, she has always been thin, most she ever weighed was 114 when she was with son Pain Assessment (If Pain Scale >0) Denies pain Goals of care:Continue Current Management Advance Directives: DNR-CCA Surrogate: Child Prognosis: unknown Spiritual assessment: No spiritual distress identified Bereavement and grief: Grief Issues Not Identified Past Medical History: Diagnosis Date HTN (hypertension) No past surgical history on file. No family history on file. Unable to obtain family history due to parents have Allergies Allergen Reactions Diphenhydramine Other Radford Review of Systems ROS: See palliative care ROS/ESAS below; All other systems were reviewed and are negative. [place] Symptom Assessment Score [place] Score Pain Score 0 Tiredness Score 0 Nausea Score 0 Depression Score 0 Anxiety Score 0 Drowsiness Score 0 Anorexia Score (0= eating well, 10= not eating) 0 Wellbeing Score (10= worst sense of well-being) 0 Constipation 0 Dyspnea Score (0= no shortness of breath) 0 FLACC Scale (For Pain Assessment of the Non-Verbal Patient) Patient is verbal Assessed by: patient and provider. Social history: Adin status: no Marital status: Living status: alone Work history: retired Advance Care Planning: The patient has capacity to make healthcare and advanced care planning decisions Yes The patient's identified surrogate decision maker is Child. As above Family Meeting: Participants: patient Family meeting was held to discuss: as above Objective: Physical Exam BP 119/69 Pulse 102 Temp 36.4 C (97.6 F) Resp 16 Ht 5' (1.524 m) Wt 91 lb (41.3 kg) SpO2 99% BMI 17.77 kg/m Physical Exam Vitals and nursing note reviewed. Constitutional: Appearance: She is cachectic. HENT: Nose: Nose normal. Mouth/Throat: Mouth: Mucous membranes are moist. Eyes: General: Right eye: No discharge. Left eye: No discharge. Pupils: Pupils are equal, round, and reactive to light. Comments: L eye ecchymosis Cardiovascular: Rate and Rhythm: Normal rate and regular rhythm. Pulses: Normal pulses. Heart sounds: Murmur heard. Comments: No edema B post tib/dorsalis pedis palpable Pulmonary: Effort: Pulmonary effort is normal. Breath sounds: Normal breath sounds. Abdominal: General: Bowel sounds are normal. There is no distension. Palpations: Abdomen is soft. There is no mass. Musculoskeletal: General: Deformity (LUE) present. Cervical back: Normal range of motion and neck supple. Right lower leg: No edema. Left lower leg: No edema. Skin: General: Skin is warm and dry. Comments: fragile Neurological: General: No focal deficit present. Mental Status: She is alert and oriented to person, place, and time. Psychiatric: Mood and Affect: Mood normal. Behavior: Behavior normal. Behavior is cooperative. Comments: No agitation Current Medications: Inpatient medications reviewed: yes Home medications reviewed: yes OARRS Reviewed: Yes-no reportable medications 24 Hour PRN Meds: labetalol times 1 Results/Verification of Data Review Objective data reviewed (be specific which labs, imaging reports with dates reviewed): 08/08/22: BMP, CBC, 08/06/22: CT chest report reviewed Data in Support of Terminal Illness: Is patient hospice appropriate? no Transition Note Initiated: Dayana Salamanca has been seen in consultation by [facility] Palliative Care during their admission to [facility]. They currently have no uncontrolled symptoms and have established goals of care and we have signed off of their case. The patient has established follow-up with PCP. [facility] [employer] Work Phone: 08-08-2022 Nurse Note Spoke with resident about hydralazine order parameters , it is use as first line for BP greater than 140 although patients heart rate is greater then 110 . New orders received [facility] [employer] 08-08-2022 Note Formatting of this n ote might be different from the original. Care Managment Initial Assessment Date: 08/09/2022 Patient Name: Dayana Salamanca : 1935 Patient Information Source of Information: Patient Cognition/Language: WFL - Within Functional Limits Permission given to speak with patient jewelry sales representative/caregiver as indicated: Yes Confirmation of Payer with patient/family: Yes Payer Name: [facility] : No Confirmation of Primary Care Physician: Confirmed PCP Name: [facility] Seen in last 2 years?: Yes Primary Caregiver: Self If assistance needed, confirmed caregiver ready, willing and able to care for patient at discharge: Confirmed with: patient Living Arrangements Current Residence: Private Residence Number of Floors 1 Number of Entry Steps: 2 Bed/Bath Levels: Both first floor Facility: Facility Name: Plan to Return: Yes Lives with: Alone Support Systems: Family members Activities of Daily Living Ambulation: Independent Bathing/Dressing: Independent Elimination/Continence/Toileting: Independent Feeding: Independent Who Assists with Activities of Daily Living: Instrumental Activities of Daily Living Prescription Coverage: Yes Pharmacy Used: Medication Management: Independent Transportation/Shopping: Assistance Provider Transportation/Shopping Assistance Provider Name: family provides Transportation Mode: Needs Assistance with Transportation at Discharge: Meal Preparation: Independent Laundry/Cleaning: Independent Finances/Bill Paying: Independent Communication: Independent Types of Care Services/Equipment Utilized Care Services: Dialysis Type: Durable Medical Equipment: Patient's Goal/Discharge Plan Patient expects to be discharged to: home Discharge Planning Actions: Continue to follow Patient's Choice Rights and [employer] and Collaborative Relationships Disclosed as Indicated for Post-Acute Care: NA Interdisciplinary Team Engagement: Geriatric Assessment, PT/OT, Palliative Care Social Work Referral for: Additional Information: Patient admitted s/p fall sdh, left radius/ulna fracture. Geriatrics, Neurosurgery, and Palliative Care following. Dopplers and CXR pending. PT/OT pending for dc recommendations. Met with patient at bedside, states she lives in a trailer alone. Niece lives a few trailers down and assists her as needed. She has insurance with prescription coverage. States niece will be able to help as needed at dc. Will follow. Mp Heredia RN [facility] [employer] 08-07-2022 Plan of care note Problem: Knowledge Deficit Goal: Patient/family/caregiver demonstrates understanding of disease process, treatment plan, medications, and discharge instructions Outcome: Progressing Problem: Potential for Compromised Skin Integrity Goal: Skin Integrity is Maintained or Improved Outcome: Progressing Goal: Nutritional status is improving Outcome: Progressing Problem: Urinary Incontinence Goal: Perineal skin integrity is maintained or improved Outcome: Progressing [facility] [employer] 08-07-2022 Consult note Formatting of th is note is different from the original. Images from the original note were not included. Department of General Surgery Surgical Service - 3 Resident Consult Note 08/07/2022 CHIEF COMPLAINT: No chief complaint on file. Reason for Consult: Rectal prolapse HISTORY OF PRESENT ILLNESS: Dayana Salamanca is a 86 y.o. female with significant past medical history of HTN who presented with intracranial hemorrhage. Surgery was consulted for evaluation of rectal prolapse. Patient states she has never has something like this before. Had a loose BM this am on the toilet had some pain and noted the small mass. Trauma evaluated the patient and noted a prolapse. She has minimal pain. Denies rectal surgery in the past. On evaluation patient was AF,HDS . Labs reviewed significant for:Hgb 11.0,, WBC 12.7, Cr 1.10 Imaging demonstrated stable right subdural hematoma and small subarachnoid. Past Medical History: Diagnosis Date HTN (hypertension) No past surgical history on file. Medications Prior to Admission: No current facility-administered medications on file prior to encounter. Current Outpatient Medications on File Prior to Encounter Medication Sig ascorbic acid (Vitamin C) 500 MG ER capsule Take 1 capsule by mouth daily. aspirin 325 MG tablet Take 325 mg by mouth daily. atorvastatin (Lipitor) 80 MG tablet Take 80 mg by mouth Nightly. cholecalciferol (Vitamin D-3) 25 MCG (1000 UT) capsule Take 1 capsule by mouth daily. furosemide (Lasix) 20 MG tablet Take 20 mg by mouth daily. lisinopril 5 MG tablet Take 5 mg by mouth daily. verapamil ER (Verelan) 240 MG 24 hr capsule Take 240 mg by mouth daily. [DISCONTINUED] atorvastatin (Lipitor) 80 MG tablet Take 80 mg by mouth daily. [DISCONTINUED] furosemide (Lasix) 20 MG tablet Take 20 mg by mouth daily. [DISCONTINUED] lisinopril 5 MG tablet Take 5 mg by mouth daily. [DISCONTINUED] verapamil SR (Calan SR) 180 MG ER tablet Take 180 mg by mouth Nightly. Do not crush or chew. Allergies: Diphenhydramine and Radford Social History Socioeconomic History Marital status: Tobacco Use Smoking status: Every Day Types: Cigarettes Smokeless tobacco: Never Substance and Sexual Activity Alcohol use: Yes Alcohol/week: 5.0 standard drinks Types: 5 Glasses of wine per week Drug use: Never No family history on file. REVIEW OF SYSTEMS: Review of Systems Constitutional: Positive for fatigue. Negative for chills and fever. HENT: Negative for congestion, ear discharge and trouble swallowing. Eyes: Negative for discharge. Respiratory: Negative for cough, chest tightness and shortness of breath. Cardiovascular: Negative for chest pain and leg swelling. Gastrointestinal: Negative for abdominal distention, abdominal pain, constipation, diarrhea, nausea and vomiting. Genitourinary: Negative for difficulty urinating and flank pain. Musculoskeletal: Negative for arthralgias and joint swelling. Mylagias Skin: Negative for color change and wound. Neurological: Negative for dizziness and light-headedness. Psychiatric/Behavioral: Negative for agitation and confusion. PHYSICAL EXAM: Vitals: 08/07/22 0844 BP: Pulse: 89 Resp: 21 Temp: SpO2: 99% I/O last 3 completed shifts: In: 2156 (52.3 mL/kg) [P.O.:200; I.V.:1956 (47.4 mL/kg)] Out: 250 (6.1 mL/kg) [Urine:250 (0.2 mL/kg/hr)] Weight: 41.3 kg CONSTITUTIONAL: awake, alert, cooperative, no apparent distress NECK: Supple, symmetrical, trachea midline, no adenopathy LUNGS: No increased work of breathing, good air exchange CARDIOVASCULAR: Regular rate and rhythm ABDOMEN: Soft, non-distended, non-tender, no rebound, no guarding, no masses palpated RECTUM: full thickness rectal prolapse with intact mucosa, able to be reduced no hemorrhoids or other findings CHEST: no masses palpated, no axillary or supraclavicular adenopathy GENITAL/URINARY: Not examined MUSCULOSKELETAL: There is no redness, warmth, or swelling of the joints. Full range of motion noted. NEUROLOGIC: Awake, alert, oriented to name, place and time. SKIN: normal skin color, texture, multiple bruising over BL extremities and face DATA: CBC: Lab Results Component Value Date WBC 12.7 (H) 08/07/2022 RBC 3.64 (L) 08/07/2022 HGB 11.0 (L) 08/07/2022 HCT 32.6 (L) 08/07/2022 MCV 89.4 08/07/2022 MCH 30.1 08/07/2022 MCHC 33.7 08/07/2022 RDW 15.0 (H) 08/07/2022 PLT 235 08/07/2022 MPV 8.4 08/07/2022 BMP: Lab Results Component Value Date NA 135 08/07/2022 K 4.3 08/07/2022 CL 104 08/07/2022 CO2 27 08/07/2022 BUN 15 08/07/2022 CREATININE 1.10 (H) 08/07/2022 CALCIUM 7.9 (L) 08/07/2022 GLUCOSE 88 08/07/2022 Hepatic Function Panel: No results found for: ALKPHOS, ALT, AST, PROT, BILITOT, BILIDIR PT/INR: No results found for: PROTIME, INR Troponin: Lab Results Component Value Date TROPONINI <0.012 08/05/2022 LIPASE: No results found for: LIPASE IMAGING: Transthoracic echocardiogram (TTE) complete with contrast, bubble, strain, and 3D PRN Left Ventricle: Left ventricle size is normal. Normal wall thickness. Normal left ventricular systolic function. The EF by visual approximation is 55%. Normal wall motion. Right Ventricle: Right ventricle size is normal. Normal systolic function. Aortic Valve: Mild (1+) regurgitation. Left Atrium: Left atrium is moderately dilated. Right Atrium: Right atrium is mildly dilated. Pericardium: Left pleural effusion. IVC/SVC: IVC diameter is dilated and decreases less than 50% during inspiration; therefore the estimated right atrial pressure is elevated (~15 mmHg). No significant valvular abnormalities (mild AI, MR and TR). CT chest wo IV contrast Narrative: [facility] 1935 [id number] Exam Date/Time: 08/06/2022 05:19 Procedure: CT CHEST WO IV CONTRAST Ordering Provider: NORIEGA RATHNA Reason For Exam: b/l pleural effusions CLINICAL HISTORY: b/l pleural effusions COMPARISON: None Technique: Axial CT images were obtained of the chest. Images were reformatted in coronal and sagittal projections. Dose reduction was employed with automated exposure control. Intravenous contrast: None FINDINGS: Lungs: Bibasilar atelectasis and consolidation with internal air bronchograms. Septal thickening and mild patchy groundglass opacities seen in the upper lungs. Pleura: Large right and moderate left pleural effusion. Heart/Great vessels: The heart is moderately enlarged with no pericardial effusion. There is mild to moderate coronary artery calcification. The aorta and pulmonary arteries are normal in caliber. Mediastinum/Tatiana: No clear enlargement of mediastinal, hilar, or axillary lymph nodes although evaluation is limited by noncontrast technique. No mediastinal masses seen Visualized Upper Abdomen: No significant abnormality Chest wall/Lower neck: Thyroid is normal in appearance. Contour abnormality in the anterior neck soft tissues suggestive of prior tracheostomy. Bones: No suspicious osseous lesions. Impression: Large right and moderate left pleural effusion with adjacent atelectasis and areas of internal air bronchograms which may be due to superimposed pneumonia. Patchy interstitial thickening and groundglass opacities in the upper lungs are likely related to additional infectious/inflammatory changes or possible interstitial pulmonary edema. Report Dictated on Electronically Signed By: Seferino Perez Electronically Signed Date/Time: 08/06/2022 9:[address] head wo IV contrast Narrative: Patient Name: DAYANA SALAMANCA : 1935 [facility]#: [id number] Exam Date/Time: 08/06/2022 05:19 Procedure: CT HEAD WO IV CONTRAST Ordering Provider: NORIEGA RATHNA Reason For Exam: Traumatic brain injury (TBI), new or progressive neuro deficits CT HEAD: CLINICAL INDICATION: Traumatic brain injury, new onset neurologic deficits TECHNIQUE: Transaxial CT sequence performed through the head with 3 mm reconstruction. Sagittal and Coronal reconstruction images included. COMPARISON: Head CT dated 08/05/2022 from 1851 hours performed at outside hospital FINDINGS: There is redemonstration of a right cerebral hemispheric subdural hematoma, measuring up to 7 mm in maximal thickness. There is minimal effacement of the subjacent cortical sulci, predominantly about the right temporal lobe. There is a tiny focus of subarachnoid hemorrhage about the left frontal lobe (series 3, image 28). No significant midline shift. Ventricles and sulci are prominent, consistent with age-related cerebral volume loss. There are scattered foci of hypoattenuation in the periventricular and subcortical white matter, which is nonspecific, but commonly seen with chronic small vessel ischemia. No CT evidence of an acute large territorial infarction. Vascular calcifications noted at the skull base. Imaged paranasal sinuses and mastoid air cells are well aerated. Calvarium is unremarkable. There is minimal left preseptal soft tissue swelling. No depressed skull fracture. Impression: 1. Stable right cerebral hemispheric subdural hematoma. No significant mass effect or midline shift. 2. Stable small focus of subarachnoid hemorrhage along the left frontal lobe. Report Dictated on Electronically Signed By: Uriel Caban Electronically Signed Date/Time: 08/06/2022 7:37 AM EDT ECG 12 lead Atrial fibrillation LVH with secondary repolarization abnormality Inferior infarct, old Anterior infarct, old ASSESSMENT AND PLAN: This is a 86 y.o. female with Rectal prolapse - able to be reduced at bedside 08/06 - no acute intervention can discuss elective repair if this becomes a recurrent problem as an outpatient DAVID MAE MD General Surgery Resident 08/07/22 9:32 AM This note may have been dictated using [employer] Practice Edition 2.6 and/or [employer] Voice Recognition Feature. The document was proofread; however, unrecognized voice recognition director stars errors may be present. T [facility] 08-06-2022 Consult note Associated Order (s): IP CONSULT TO NEUROSURGERY NEUROSURGERY and SPINE CONSULT NOTE Patient Name: Dayana Salamanca Patient : 1935 PCP: Deidre Borrero MD History of Present Ilness: 86 y.o. presents with history of having fallen at approximately 8 AM yesterday morning. She was subsequently seen at [facility] where a CAT scan was performed and she was transferred to [facility]. She apparently did not lose consciousness. She currently has no complaints and neurological review of systems is negative. She appears to be functioning at her baseline. Past Medical History: Past Medical History: Diagnosis Date HTN (hypertension) Past Surgical History: No past surgical history on file. Home Medications: Prior to Admission medications Not on File Allergies: Diphenhydramine and Radford Social History: TOBACCO: reports that she has been smoking cigarettes. She has never used smokeless tobacco. ETOH: reports current alcohol use of about 5.0 standard drinks per week. RECREATIONAL DRUG USE: Social History Substance and Sexual Activity Drug Use Never Family History: No family history on file. Physical Examination: Vitals: 08/06/22 0855 BP: Pulse: Resp: Temp: SpO2: 99% Physical Exam She is awake alert oriented x3. Cranial nerves are age-appropriate. She has ecchymosis around her left eye. She is conversive speech is appropriate she follows commands and moves all extremities strongly and purposefully without focal areas of weakness. There are no focal objective neurological deficits. Results Labs: Last 24hrs Recent Results (from the past 24 hour(s)) Electrocardiogram, 12-lead Collection Time: 08/05/22 11:12 PM Result Value Ref Range Heart Rate 84 bpm QRSD Interval 115 ms QT Interval 435 ms QTC Interval 514 ms P [place] degrees QRS [place] -29 degrees T Wave [place] 131 degrees ND Interval ms CBC auto differential Collection Time: 08/05/22 11:18 PM Result Value Ref Range Auto WBC 9.7 3.6 - 10.7 10*3/uL RBC 3.75 (L) 3.8 - 5.20 10*6/uL Hemoglobin 11.1 (L) 11.7 - 16.0 g/dL Hematocrit 33.0 (L) 35.0 - 47.0 % MCV 87.9 80.0 - 98.0 fL MCH 29.7 26.0 - 34.0 pg MCHC 33.7 32.0 - 36.0 % RDW 14.1 11.5 - 14.5 % Platelets 247 140 - 440 10*3/uL MPV 8.4 7.4 - 12.4 fL nRBC 0.0 0.0 - 2.0 /100 WBCs Neutrophils Relative 74.8 40.0 - 80.0 % Lymphocytes Relative 13.2 (L) 20.0 - 40.0 % Monocytes Relative 10.4 (H) 2.0 - 10.0 % Eosinophils Relative 0.7 (L) 1.0 - 6.0 % Basophils Relative 0.9 0.0 - 2.0 % Neutrophils Absolute 7.3 (H) 1.8 - 7.0 10*3/uL Lymphocytes Absolute 1.3 1.0 - 4.3 10*3/uL Monocytes Absolute 1.0 (H) 0.0 - 0.8 10*3/uL Eosinophils Absolute 0.1 0.0 - 0.5 10*3/uL Basophils Absolute 0.1 0.0 - 0.2 10*3/uL Basic metabolic panel Collection Time: 08/05/22 11:18 PM Result Value Ref Range SODIUM 136 135 - 145 mmol/L POTASSIUM 3.8 3.5 - 5.1 mmol/L CHLORIDE 102 98 - 107 mmol/L CARBON DIOXIDE 33 (H) 22 - 30 mmol/L UREA NITROGEN 9 7 - 17 mg/dL CREATININE 1.02 0.52 - 1.04 mg/dL GLUCOSE 100 70 - 100 mg/dL CALCIUM 8.2 (L) 8.4 - 10.4 mg/dL ANION GAP 1 (L) 3 - 13 mmol/L eGFR 53.7 (L) >60.0 mL/min/1.73m*2 Troponin I Collection Time: 08/05/22 11:18 PM Result Value Ref Range TROPONIN I <0.012 0.000 - 0.034 ng/mL ECG 12 lead Collection Time: 08/05/22 11:41 PM Result Value Ref Range Heart Rate 82 bpm QRSD Interval 112 ms QT Interval 423 ms QTC Interval 496 ms P [place] degrees QRS [place] -29 degrees T Wave [place] 121 degrees ND Interval ms CBC auto differential Collection Time: 08/06/22 3:31 AM Result Value Ref Range Auto WBC 8.0 3.6 - 10.7 10*3/uL RBC 3.61 (L) 3.8 - 5.20 10*6/uL Hemoglobin 10.8 (L) 11.7 - 16.0 g/dL Hematocrit 32.1 (L) 35.0 - 47.0 % MCV 89.1 80.0 - 98.0 fL MCH 30.0 26.0 - 34.0 pg MCHC 33.6 32.0 - 36.0 % RDW 14.6 (H) 11.5 - 14.5 % Platelets 224 140 - 440 10*3/uL MPV 8.4 7.4 - 12.4 fL nRBC 0.0 0.0 - 2.0 /100 WBCs Neutrophils Relative 66.9 40.0 - 80.0 % Lymphocytes Relative 18.5 (L) 20.0 - 40.0 % Monocytes Relative 12.0 (H) 2.0 - 10.0 % Eosinophils Relative 1.5 1.0 - 6.0 % Basophils Relative 1.1 0.0 - 2.0 % Neutrophils Absolute 5.3 1.8 - 7.0 10*3/uL Lymphocytes Absolute 1.5 1.0 - 4.3 10*3/uL Monocytes Absolute 1.0 (H) 0.0 - 0.8 10*3/uL Eosinophils Absolute 0.1 0.0 - 0.5 10*3/uL Basophils Absolute 0.1 0.0 - 0.2 10*3/uL Basic metabolic panel Collection Time: 08/06/22 3:31 AM Result Value Ref Range SODIUM 137 135 - 145 mmol/L POTASSIUM 4.0 3.5 - 5.1 mmol/L CHLORIDE 105 98 - 107 mmol/L CARBON DIOXIDE 31 (H) 22 - 30 mmol/L UREA NITROGEN 10 7 - 17 mg/dL CREATININE 0.96 0.52 - 1.04 mg/dL GLUCOSE 94 70 - 100 mg/dL CALCIUM 8.0 (L) 8.4 - 10.4 mg/dL ANION GAP 1 (L) 3 - 13 mmol/L eGFR 57.7 (L) >60.0 mL/min/1.73m*2 Magnesium Collection Time: 08/06/22 3:31 AM Result Value Ref Range MAGNESIUM 2.0 1.6 - 2.3 mg/dL Phosphorus Collection Time: 08/06/22 3:31 AM Result Value Ref Range PHOSPHORUS 4.0 2.5 - 4.5 mg/dL ECG 12 lead Collection Time: 08/06/22 7:13 AM Result Value Ref Range Heart Rate 76 bpm QRSD Interval 111 ms QT Interval 435 ms QTC Interval 490 ms P [place] degrees QRS [place] -32 degrees T Wave [place] 114 degrees ND Interval ms Radiology Personal review: CT head reveals small acute right-sided subdural hematoma without significant mass effect or midline shift. ASSESSMENT / PLAN : She was not on any anticoagulation. She is status post head trauma with small right acute subdural hematoma. There are no surgical indications at this time. It is possible that as this becomes subacute it could enlarge and require evacuation. At this time I would recommend observation. Recommend repeat CT head in the next 2 to 3 days. Discharge planning. She can follow-up with me in approximately 2 to 3 weeks in the office. At this time she is clinically and radiographically stable. As noted above there is risk that this could enlarge as it becomes subacute. We will sign off. Please let me know if I can be of further assistance during this inpatient stay. I spent over 51% of total time 60m counseling/coordinating care and provided discussion regarding sdh. Phone: 08-06-2022 Consult note Associated Order (s): IP CONSULT TO PALLIATIVE CARE Consult acknowledged, discussed with eleazar Bui for full consult to be completed 08/08/22, aware should needs change to notify weekend covering provider. [facility] 08-06-2022 Plan of care note Problem: Knowledge Deficit Goal: Patient/family/caregiver demonstrates understanding of disease process, treatment plan, medications, and discharge instructions Outcome: Progressing Problem: Potential for Compromised Skin Integrity Goal: Skin Integrity is Maintained or Improved Outcome: Progressing Goal: Nutritional status is improving Outcome: Progressing Problem: Urinary Incontinence Goal: Perineal skin integrity is maintained or improved Outcome: Progressing [facility] 08-06-2022 Consult note Associated Order (s): IP CONSULT TO GERIATRICS [facility] Geriatric Medicine Inpatient Consult Service Admission Date: 08/05/2022 Admission Status: INPATIENT Chief Complaint: Left wrist pain Reason for Appointment Geriatrics consulted for Trauma due to fall. Management. Assessment Principal Problem: Intracranial hemorrhage (HCC) Plan # Unwitnessed fall # Debility -Multiple risk factors including decreased hearing, decreased vision, and weakness, chronic medical condition -Continue PT/OT as able while inpatient -Vitamin D pending -Check orthostatic vital signs as able -Medications with associated fall risk include: antidiuretics - CT head: stable Rt. subdural hematoma: Conservative management per Neurosurgery. # Acute pain management - Currently on dilaudid prn - Recommend Scheduled Tylenol 1g tid # Chronic medical conditions - ProBNP 3,880, Pending Echo - Katia: Lt. Pleural effusion. - SARS-CoV-2 pending - Continue current management per primary team. # Cognitive Impairment - MMSE 23/27, CDT 1/7 Recent trauma, pain, and vision could be impacting test scores. - No baseline cognition impairment known - Advised to follow up with [facility] after discharge. # High Risk for Delirium --Etiology likely: age, hospital envrionment, decreased hearing and vision. --Encourage PO intake, time up in chair, family visits, supervised ambulation, and sleep hygiene --If agitated, assess for and consider treating for pain --QTc= 490 --No antipsychotic unless patient is danger to self/others/treatment - Monitor for constipation/urinary retention - last BM unknown --Possible medication contributions: NA - Implement delirium protocol per ICU protocol. Subjective: HPI 86 y.o. year-old female presented from home for unwitnessed fall. Patient reports that she lives in a trailer home alone with her 2 nieces living nearby, 1 lives 3 trailers away and the other 5 trailers away. She reports getting out of her recliner around 7:30 AM, tripping over the carpet while she was walking towards the kitchen to get her second cup of coffee. She tried to catch herself with her left hand but landed on the floor hitting the left side of her face and left wrist. She denies any loss of consciousness. No recent fall. She last fell about 4 years ago. She reports drinking small cup of wine 2 times a week and her last drink was the previous night before she fell. Patient reports that she was born and raised in [place] but moved to [place] many years after she got . Lived in different states. of 48 years in 2002. Patient moved back to [place] in August 2021. Has a son that lives in [place]. Visited him and his family in December 2021. Patient had a great time with her grandchildren, son and . Labs: remarkable for Pro BNP 3, 880 Cxray: Lt Pulmonary effusion, glass ground effusion. CT head consistent with stable right sided subdural hematoma. Conversation with caregiver: Peri ( niece- [phone]). -Peri was on the phone with the patient when she had a fall in her trailer at around 7 30-9 a.m. - Reports has no major concern for the patient. Advance Care Planning Healthcare Power ofAttorney: Yes, [employer] Power of Excavating Supervisor: Yes, SonTres Living Will:Yes Code Status: Full Code Allergies Allergen Reactions Diphenhydramine Radford Current Facility-Administered Medications: acetaminophen (Ofirmev) injection 600 mg, 15 mg/kg, IntraVENous, q8h, Lillian Campbell MD, Stopped at 08/06/22 0119 famotidine (Pepcid) injection 20 mg, 20 mg, IntraVENous, BID, Annabelle Bob MD hydrALAZINE (Apresoline) injection 10 mg, 10 mg, IntraVENous, q4h PRN, Annabelle Bob MD ipratropium-albuterol (Duo-Neb) 0.5-2.5 mg/3 mL nebulizer solution 3 mL, 3 mL, Nebulization, TID, Llilian Campbell MD labetalol (Normodyne,Trandate) injection 10 mg, 10 mg, IntraVENous, q4h PRN, Annabelle Bob MD ondansetron ODT (Zofran-ODT) disintegrating tablet 4 mg, 4 mg, Oral, q8h PRN OR ondansetron (Zofran) injection 4 mg, 4 mg, IntraVENous, q6h PRN, Annabelle Bob MD polyethylene glycol (PEG) 3350 (Miralax) packet 17 g, 17 g, Oral, Daily PRN, Lillian Campbell MD sodium chloride 0.9 % infusion, 100 mL/hr, IntraVENous, Continuous, Annabelle Bob MD Past Medical History: Diagnosis Date HTN (hypertension) No past surgical history on file. Social History Social History Tobacco Use Smoking status: Every Day Types: Cigarettes Smokeless tobacco: Never Substance Use Topics Alcohol use: Yes Alcohol/week: 5.0 standard drinks Types: 5 Glasses of wine per week Social History Social History Narrative Not on file Patient Currently Lives: Trailer home Level of FamilySupport: The patient receives support from her son and nieces . Community Resources: noNone Elder Abuse: no Education Level: 11th grade Family History No family history on file. No family status information on file. Family history reviewed as above Review of Systems Constitutional: Positive for fatigue. Negative for activity change, appetite change, chills, fever and unexpected weight change. HENT: Negative for congestion, dental problem, ear pain, hearing loss, postnasal drip and trouble swallowing. Eyes: Negative for discharge and redness. Respiratory: Negative for cough, chest tightness and shortness of breath. Cardiovascular: Negative for chest pain, palpitations and leg swelling. Gastrointestinal: Negative for abdominal pain, nausea and vomiting. Endocrine: Negative for cold intolerance and heat intolerance. Genitourinary: Negative for dysuria, frequency and urgency. Musculoskeletal: Negative for arthralgias, back pain, gait problem, joint swelling and neck stiffness. Skin: Positive for wound. Negative for color change and rash. Neurological: Negative for dizziness, weakness, light-headedness, numbness and headaches. Hematological: Does not bruise/bleed easily. Psychiatric/Behavioral: Negative for behavioral problems, confusion, hallucinations, sleep disturbance and suicidal ideas. Depression Screening: PHQ-2 Over the past 2 weeks, how often have you been botheredby any of the following problems? 1) Little interest or pleasure in doing things: No 2)Felling down, depressed, or hopeless: No Functional Status (I: Independent, A: Assisted, D: Dependent) ADLs I A D Notes Bathing [x] [] [] Dressing [x] [] [] Toileting [x] [] [] Transfers [x] [] [] Feeding [x] [] [] Ambulation [x] [] [] Assistive devices: none IADLs I A D { Telephone [x] [] [] Transportation [] [] [x] Driving safety concerns: No Shopping [] [x] [] Meal prep [x] [] [] Housework [x] [] [] Medications [x] [] [] Finances [x] [] [] Objective: BP 123/51 Pulse 82 Temp 36.4 C (97.6 F) (Temporal) Resp 14 Ht 5' (1.524 m) Wt 91 lb 0.8 oz (41.3 kg) SpO2 96% BMI 17.78 kg/m Intake/Output Summary (Last 24 hours) at 08/06/2022 0746 Last data filed at 08/06/2022 0043 Gross per 24 hour Intake -- Output 250 ml Net -250 ml Wt Readings from Last 3 Encounters: 08/05/22 91 lb 0.8 oz (41.3 kg) Physical Exam Constitutional: Appearance: Normal appearance. Comments: Frail elderly woman Left sided raccoon eye HENT: Head: Normocephalic and atraumatic. Right Ear: External ear normal. Left Ear: External ear normal. Nose: Nose normal. No congestion. Mouth/Throat: Mouth: Mucous membranes are dry. Pharynx: Oropharynx is clear. Eyes: Extraocular Movements: Extraocular movements intact. Conjunctiva/sclera: Conjunctivae normal. Comments: Left sided raccoon eye. Cardiovascular: Rate and Rhythm: Regular rhythm. Heart sounds: Normal heart sounds. No murmur heard. Pulmonary: Effort: Pulmonary effort is normal. No respiratory distress. Breath sounds: Normal breath sounds. No wheezing. Abdominal: General: Bowel sounds are normal. Palpations: Abdomen is soft. Tenderness: There is no abdominal tenderness. Musculoskeletal: General: Deformity and signs of injury present. No swelling. Cervical back: Normal range of motion. No rigidity or tenderness. Comments: Left arm in cast Skin: General: Skin is dry. Coloration: Skin is not jaundiced. Findings: Lesion present. No bruising or rash. Neurological: General: No focal deficit present. Mental Status: She is alert and oriented to person, place, and time. Mental status is at baseline. Motor: No weakness. Gait: Gait normal. Psychiatric: Mood and Affect: Mood normal. Behavior: Behavior normal. Mini-Mental Status Exam: Domains Points Correct Oriented to: Year, Season, Month, Day, and Date STATE, TOWN, HOSPITAL, and FLOOR 9 Registration (immediate recall) Apple, Table, Juliana # of Trials: 1 3 Serial 7s Use if 8th grade education or better 93, 86, 79, 72, 65 5 WORLD Backwards Use if <8th grade education D L R O W Not used Delayed 3 item recall Apple, Table, Juliana 2 Repetition Repeat after me: NO IFS, ANDS, OR BUTS 1 3 Step Command Take paper in right hand, fold it in half, & set on floor NA Naming Watch Pen 2 Reading Read & Obey Present: Close your eyes 1 Write a sentence 1 Copy Design (overlapping pentagons) 0 MMSE Score: 24/27 Clock Drawing Test: Correct Elements (1 pt each): Total Score 1/7 Time Instructions: Ten past eleven Scores < 5 out of 7 correlate with significantly more driving errors J Gen Gizzard Peeler Med 2005; 20:240-244 Labs and Imaging: Recent Results (from the past 24 hour(s)) Electrocardiogram, 12-lead Collection Time: 08/05/22 11:12 PM Result Value Ref Range Heart Rate 84 bpm QRSD Interval 115 ms QT Interval 435 ms QTC Interval 514 ms P [place] degrees QRS [place] -29 degrees T Wave [place] 131 degrees ND Interval ms CBC auto differential Collection Time: 08/05/22 11:18 PM Result Value Ref Range Auto WBC 9.7 3.6 - 10.7 10*3/uL RBC 3.75 (L) 3.8 - 5.20 10*6/uL Hemoglobin 11.1 (L) 11.7 - 16.0 g/dL Hematocrit 33.0 (L) 35.0 - 47.0 % MCV 87.9 80.0 - 98.0 fL MCH 29.7 26.0 - 34.0 pg MCHC 33.7 32.0 - 36.0 % RDW 14.1 11.5 - 14.5 % Platelets 247 140 - 440 10*3/uL MPV 8.4 7.4 - 12.4 fL nRBC 0.0 0.0 - 2.0 /100 WBCs Neutrophils Relative 74.8 40.0 - 80.0 % Lymphocytes Relative 13.2 (L) 20.0 - 40.0 % Monocytes Relative 10.4 (H) 2.0 - 10.0 % Eosinophils Relative 0.7 (L) 1.0 - 6.0 % Basophils Relative 0.9 0.0 - 2.0 % Neutrophils Absolute 7.3 (H) 1.8 - 7.0 10*3/uL Lymphocytes Absolute 1.3 1.0 - 4.3 10*3/uL Monocytes Absolute 1.0 (H) 0.0 - 0.8 10*3/uL Eosinophils Absolute 0.1 0.0 - 0.5 10*3/uL Basophils Absolute 0.1 0.0 - 0.2 10*3/uL Basic metabolic panel Collection Time: 08/05/22 11:18 PM Result Value Ref Range SODIUM 136 135 - 145 mmol/L POTASSIUM 3.8 3.5 - 5.1 mmol/L CHLORIDE 102 98 - 107 mmol/L CARBON DIOXIDE 33 (H) 22 - 30 mmol/L UREA NITROGEN 9 7 - 17 mg/dL CREATININE 1.02 0.52 - 1.04 mg/dL GLUCOSE 100 70 - 100 mg/dL CALCIUM 8.2 (L) 8.4 - 10.4 mg/dL ANION GAP 1 (L) 3 - 13 mmol/L eGFR 53.7 (L) >60.0 mL/min/1.73m*2 Troponin I Collection Time: 08/05/22 11:18 PM Result Value Ref Range TROPONIN I <0.012 0.000 - 0.034 ng/mL ECG 12 lead Collection Time: 08/05/22 11:41 PM Result Value Ref Range Heart Rate 82 bpm QRSD Interval 112 ms QT Interval 423 ms QTC Interval 496 ms P [place] degrees QRS [place] -29 degrees T Wave [place] 121 degrees ND Interval ms CBC auto differential Collection Time: 08/06/22 3:31 AM Result Value Ref Range Auto WBC 8.0 3.6 - 10.7 10*3/uL RBC 3.61 (L) 3.8 - 5.20 10*6/uL Hemoglobin 10.8 (L) 11.7 - 16.0 g/dL Hematocrit 32.1 (L) 35.0 - 47.0 % MCV 89.1 80.0 - 98.0 fL MCH 30.0 26.0 - 34.0 pg MCHC 33.6 32.0 - 36.0 % RDW 14.6 (H) 11.5 - 14.5 % Platelets 224 140 - 440 10*3/uL MPV 8.4 7.4 - 12.4 fL nRBC 0.0 0.0 - 2.0 /100 WBCs Neutrophils Relative 66.9 40.0 - 80.0 % Lymphocytes Relative 18.5 (L) 20.0 - 40.0 % Monocytes Relative 12.0 (H) 2.0 - 10.0 % Eosinophils Relative 1.5 1.0 - 6.0 % Basophils Relative 1.1 0.0 - 2.0 % Neutrophils Absolute 5.3 1.8 - 7.0 10*3/uL Lymphocytes Absolute 1.5 1.0 - 4.3 10*3/uL Monocytes Absolute 1.0 (H) 0.0 - 0.8 10*3/uL Eosinophils Absolute 0.1 0.0 - 0.5 10*3/uL Basophils Absolute 0.1 0.0 - 0.2 10*3/uL Basic metabolic panel Collection Time: 08/06/22 3:31 AM Result Value Ref Range SODIUM 137 135 - 145 mmol/L POTASSIUM 4.0 3.5 - 5.1 mmol/L CHLORIDE 105 98 - 107 mmol/L CARBON DIOXIDE 31 (H) 22 - 30 mmol/L UREA NITROGEN 10 7 - 17 mg/dL CREATININE 0.96 0.52 - 1.04 mg/dL GLUCOSE 94 70 - 100 mg/dL CALCIUM 8.0 (L) 8.4 - 10.4 mg/dL ANION GAP 1 (L) 3 - 13 mmol/L eGFR 57.7 (L) >60.0 mL/min/1.73m*2 Magnesium Collection Time: 08/06/22 3:31 AM Result Value Ref Range MAGNESIUM 2.0 1.6 - 2.3 mg/dL Phosphorus Collection Time: 08/06/22 3:31 AM Result Value Ref Range PHOSPHORUS 4.0 2.5 - 4.5 mg/dL ECG 12 lead Collection Time: 08/06/22 7:13 AM Result Value Ref Range Heart Rate 76 bpm QRSD Interval 111 ms QT Interval 435 ms QTC Interval 490 ms P [place] degrees QRS [place] -32 degrees T Wave [place] 114 degrees ND Interval ms No results found for: TSH No components found for: B12 No results found for: VITD25 Reviewed: active problem list, medication list, allergies, family history, social history, notes from last encounter, notes from last several encounters, lab results, imaging Follow-up: prn Communication of Consult Recommendations: Assessment and recommendations communicated to primary service Associated attestation - Orly Vizcaino MD - 08/06/2022 8:39 PM EDT Attending Supervising Physician s Attestation Statement I saw and evaluated the patient. I discussed the findings and plans with Geriatric fellow and agree as documented in her note. Changes and updates in blue Dayana Salamanca is an 86 year old female with PMH of hypertension who presented to the hospital after a fall. Patient reported she tripped over her carpet and fell. She hit her left hand and face. She was found to have an intracranial hemorrhage. She was seen by neurosurgery today. She also sustained a left distal radius and ulna fracture. Also found to have pleural effusions. Orthopedics saw her for the left arm fracture. No acute surgical intervention. JESUS MANUEL CONTRERAS. Reviewed H and P, ortho consult note, neurosurgery consult note Patient states she is doing OK today. She has some left wrist pain. She is eager to return home to her cats. Says she has family members who will help her. Lab review: CBC today: hgb 10.8 BMP today: CO2: 31 A/P Debility, Fall Risk factors include: age, physical deconditioning, vision and hearing impairment, alcohol use, heart failure? (echo pending), use of throw rug (recommended not using those in her home anymore) PT and OT Check Vitamin D Recommend orthostatic vital signs Acute Pain due to trauma -agree with scheduled acetaminophen. Unless there is a contraindication such as liver disease, this could be increased up to 1000 mg TID -agree with prn narcotic for breakthrough pain (currently on dilaudid or oxycodone). Low doses are available. Recommend lowest effective doses for breakthrough pain. At Risk for Delirium -Risk factors include: pain/trauma, age -Delirium Protocol -Recommend Melatonin nightly prn insomnia -Avoid sedating/anticholinergic medications -Encourage family visits -Encourage sleep hygiene -Minimize barriers to nutrition -Optimize sensory input and access to assistive devices where indicated -Encourage time up in chair - including at meals - as able -Unless contraindicated, encourage regular ambulation with assistance -D/c Burton, restraints, IV lines, as able [employer] Phone: 08-06-2022 Hospital Discharg e instructions Donna Rowe PA-C - 08/06/2022 3:10 AM EDT Images from the original note were not included. Orthopaedic Surgery Discharge Instructions: -Non weightbearing in left upper extremity - Activity as tolerated - Ice and elevate to reduce pain and swelling. Do not put ice directly on the skin. -Keep splint clean, dry, and intact until follow-up -Follow-up outpatient with Dr. Carrillo in 1 week. The office contact information is provided in your paperwork. -Take medications as prescribed by the hospital doctors Trauma - Stop your Aspirin until follow up with NSGY - For pain: Take Tylenol. [place] Oxy for breakthrough pain. This will cause constipation, take Senna and Miralax while on the Oxy. - Follow up with Trauma Clinic Donna Rowe PA-C - 08/11/2022 1:02 PM EDT Continuity of Care Form Patient Name: Dayana Salamanca : 1935 Admit date: 08/05/2022 Discharge date: 08/11/2022 Code Status Order: DNR-CCA Advance Directives: N Admitting Physician: Rolan Noriega MD PCP: Deidre Borrero MD Discharging Nurse: tatyana arevalo rn Discharging Hospital Unit/Room#: W3-337/W3-337 A Discharging Unit Phone Number: [phone] Emergency Contact: Extended Emergency Contact Information Primary Emergency Contact: Mike Salamanca Relation: Mother Preferred language: Ecuadorean Lining Presser needed? No Secondary Emergency Contact: Chata Cruz Relation: Niece Preferred language: Ecuadorean Lining Presser needed? No Past Surgical History: History reviewed. No pertinent surgical history. Immunization History: There is no immunization history on file for this patient. Active Problems: Medical Problems Problem List * (Principal) Intracranial hemorrhage (HCC) Debility Fall Acute pain due to trauma At risk for delirium Isolation/Infection: No active isolations No active infections Nurse Assessment: Last Vital Signs: BP (!) 143/75 Pulse (!) 130 Temp 36.2 C (97.2 F) (Temporal) Resp 16 Ht 1.524 m (5') Wt 41.3 kg (91 lb) SpO2 97% BMI 17.77 kg/m Last documented pain score (0-10 scale): Last Weight: Wt Readings from Last 1 Encounters: 08/06/22 41.3 kg (91 lb) Mental Status: CHRIS Patient Mental Status: oriented and alert IV Access: CHRIS IV Access: None Nursing Mobility/ADLs: Walking Minimal assistance Transfer Minimal assistance Bathing Minimal assistance Dressing Minimal assistance Toileting Minimal assistance Feeding Independent Bilingual Social Worker Minimal assistance Med Delivery yes Wound Care Documentation and Therapy: Elimination: Continence: Bowel: yes Bladder: yes Urinary Catheter: None Colostomy/Ileostomy/Ileal Conduit: None Date of Last BM: 08/11/22 No intake or output data in the 24 hours ending 08/11/22 1300 I/O last 3 completed shifts: In: 200 (4.8 mL/kg) [P.O.:200] Out: 1335 (32.3 mL/kg) [Urine:1075 (0.7 mL/kg/hr); Chest Tube:260] Weight: 41.3 kg Safety Concerns: history of falls (last 30 days) and at risk for falls Impairments/Disabilities: L arm cast Nutrition Therapy: Current Nutrition Therapy: Oral diet: general Routes of Feeding: oral Liquids: thin liquids Daily Fluid Restriction: no Last Modified Barium Swallow with Video (Video Swallowing Test): not done Treatments at the Time of Hospital Discharge: Respiratory Treatments: n/a Oxygen Therapy: is not on home oxygen therapy. Ventilator: No ventilator support Rehab Therapies: physical therapy and occupational therapy Weight Bearing Status/Restrictions: non-weight bearing Other Medical Equipment (for information only, NOT a DME order): none Other Treatments: n/a Patient's personal belongings (please select all that are sent with patient): glasses and phone RN SIGNATURE: MANAGEMENT/SOCIAL WORK SECTION Inpatient Status Date: Readmission Risk Assessment Score: @READMISSIONRISKDETAILS@ Discharging to Facility/ Agency Name: [facility] Address: [address] [place] [address] Fax: Dialysis Facility (if applicable) Name: Address: Dialysis Schedule: Phone: Fax: Business Trainer/Celery Stripper signature: ICIAN SECTION Prognosis: good Condition at Discharge: stable Rehab Potential (if transferring to Rehab): good Recommended Labs or Other Treatments After Discharge: NO ASA until NSGY follow up, ok for dvt chemoprophylaxis with heparin Physician Certification: I certify the above information and transfer of Dayana Salamanca is necessary for the continuing treatment of the diagnosis listed and that she requires usp facility for less than 30 days. Update Admission H&P: No change in H&P PHYSICIAN SIGNATURE: The following attachments cannot be sent through Care Everywhere.Pneumothorax (Collapsed Lung) Discharge Instructions (Ecuadorean)Subdural Hematoma Discharge Instructions (Ecuadorean)documented in this encounter [facility] 08-06-2022 Note Attestation signed by Rolan Noriega MD at 08/31/2022 7:50 PM ATTENDING ADDENDUM Patient Active Problem List Diagnosis Intracranial hemorrhage (HCC) Debility Fall Acute pain due to trauma At risk for delirium Other pneumothorax Closed fracture of left forearm with routine healing Chronic atrial fibrillation (HCC) Chronic kidney disease Hypertension Tobacco dependence syndrome Peripheral arterial disease (HCC) I independently saw the above patient and reviewed the recent events, imaging, labs, vital signs; I performed a physical exam and ROS on the same date of service as above. My findings agree with the above note except for any details corrected below. A complete review of systems was obtained and is negative except as stated in the resident note PsHx: None FmHx: No bleeding or clotting disorders Injuries/problem list: -R SDH -Bilateral SAH -R > L pleural effusions -L Distal radius and ulna fractures Surgeries: -None Management/Plan: -Per Dr. Campbell -Consult to neurosurgery for SDH/SAH -Repeat CT head pending -Pain medications with scheduled tylenol, PRN dilaudid -Hx of HTN --> obtain home medications -Hx of atrial fibrillation -CT chest to evaluate pleural effusions on x-ray -Pulm toilet -NPO, IVF, AREA FORESTER evaluation -Monitor I/O's -AM labs -Ortho consultation for L DR/gretchen fx -SCD's, hold lovenox -PT/OT Total Care Time throughout the day today was >= 75 minutes (including chart/data review/analysis, care coordination, and [id number] encounter), and was spent discussing/counseling the patient/family regarding the care plan for Dayana Salamanca. I examined the patient independently. I reviewed relevant data myself and may have also done so in the context of team rounds. A full chart review was performed. Level of Medical Decision Making: [x]High []Moderate []Low Complexity: [x]Acute or chronic illness/injury posing a threat to life or bodily function without treatment (HIGH) []Chronic illness with severe exacerbation, progression, or side effect of treatment (HIGH) []Chronic illness with mild to moderate exacerbation, progression, or side effect of treatment (MOD) []Previously undiagnosed (new) problem with uncertain prognosis (MOD) []Acute illness with systemic symptoms (MOD) []Acute, complicated injury (MOD) []Multiple stable chronic illnesses (MOD) Risk: [x]Parental controlled substances (HIGH) []Decision resuscitate de-escalate care because of poor prognosis (HIGH) []Decision regarding elective major surgery with identified patient or procedure risk factors (HIGH) []Decision regarding emergency major surgery (HIGH) []Drug or therapy requiring intensive monitoring (HIGH) [x]Requires close neuro-critical care monitoring due to risk of neurological deterioration (HIGH) []Prescription drug management (MOD) []Decision regarding minor surgery with identified patient or procedure risk factors (MOD) []Decision regarding elective major surgery without limited identified patient or procedure risk factors (MOD) []Diagnosis or treatment significant limited by social determinants of health (MOD) Personally Reviewed/Independently interpreted patient's: [x]Epic notes [x]Radiology studies [x]Labs []EKG [x]Ordering tests []Other Discussed/ With: [x]Patient/Family [x]RN [x]Consultants []Primary Team []SW/TCC []Other Time was spent: -Reviewing the medical record, including recent tests and results -Ordering prescription medications/tests and procedures -Communicating results to the patient/family/caregiver -Counseling/educating the patient/family/caregiver -Documenting clinical information in the patient's electronic record -Co-ordination of care for the patient -Performing a medically appropriate exam and evaluation Rolan Noriega MD, FACS Trauma, Surgical Critical Care, & General Surgery Division of Trauma Department of Surgery [facility] Trauma H&P 08/05/2022 11:30 PM Trauma Attending: Dr. Noriega Level of Initial Activation: Direct Admit Upgraded: No To:N/A Mechanism of Injury: Fall Mechanical Mechanism of Arrival:Transfer from [facility] Chief Complaint: Left wrist pain History of Traumatic Injury: 86 y.o. female status post [facility]. The incident happened around 8AM on 08/05 at home. When the event happened the patient was walking at home when she tripped over her carpet and fell, hitting her left hand and face. She remembers the whole incident. Patient pain level currently is 5/10. Patient endorses 4 cigarette use for the past 10 years. Did the Patient have LOC?No C-collar in place on arrival? No Was the patient on an antiplatelet or anticoagulant medication? No If yes, which one? (more content not included)... [facility] Diagnosis Subdural hematoma (HCC) Subdural hemorrhage [facility] Diagnosis Subdural hematoma (HCC)- Primary Subdural hemorrhage documented in this encounter [facility] for referral (narrative)* Consultation (Routine) - Pending Review Specialty Diagnoses / Procedures Referred By Britany flores Referred To Contact Physician Tests Superintendent / Trauma Surgery Diagnoses Intracranial hemorrhage (HCC) Acute pain due to trauma Closed fracture of left forearm, initial encounter Procedures [place] OFFICE/OUTPATIENT [facility] MDM 60-74 MINUTES Donna Rowe PA-C [address] [place] [address] Dnona Rowe PA-C [address] [place] [address] Referral ID Status Reason Start Date Expiration Date Visits Requested Visits Authorized [id number] Pending Review Specialty Services Required 08/11/2022 08/11/2023 1 1 [facility] Advance Directives No Advanced Directives Records FoundLatest Code Status on File Code Status Date Activated Date Inactivated Comments DNR-CCA 08/08/2022 10:23 AM Question Answer Comments ICU transfer: Yes Intubation: No Code Status History Code Status Date Activated Date Inactivated Comments Full Code 08/05/2022 10:59 PM 08/08/2022 10:23 AM Latest Code Status on File Code Status Date Activated Date Inactivated Comments DNR-CCA 08/08/2022 10:23 AM 08/11/2022 8:02 PM Question Answer Comments ICU transfer: Yes Intubation: No Documents on File Type Date Recorded Patient Conduit Bender Expl anation DNR (Do Not Resuscitate) 08/12/2022 11:36 AM Documents on File Type Date Recorded Patient Conduit Bender Expl anation DNR (Do Not Resuscitate) 08/12/2022 11:36 AM Latest Code Status on File Code Status Date Activated Date Inactivated Comments DNR-CCA 08/08/2022 10:23 AM 08/11/2022 8:02 PM Question Answer Comments ICU transfer: Yes Intubation: No Code Status History Code Status Date Activated Date Inactivated Comments Full Code 08/05/2022 10:59 PM 08/08/2022 10:23 AM Reason for Referral Specialty Diagnoses / Procedures Referred By Contac t Referred To Contact Radiology Diagnoses Subdural hematoma (HCC) Procedures CT head wo IV contrast Campos Garduno PA-C [address] [place] [address] Referral ID Status Reason Start Date Expiration Date Visits Re quested Visits Authorized [id number] Closed 09/15/2022 03/14/2023 1 1 Summary Purpose Family History No Family History Records Found Additional Source Comments Reason for Visit (unrecogniz ed section and content) Referral ID Status Reason Start Date Expiration Date Visits Re quested Visits Authorized [id number] 1 1 Specialty Diagnoses / Procedures Referred By Contac t Referred To Contact Radiology Diagnoses Subdural hematoma (HCC) Procedures CT head wo IV contrast Campos Garduno PA-C [address] [place] [address] Referral ID Status Reason Start Date Expiration Date Visits Re quested Visits Authorized [id number] Closed 09/15/2022 03/14/2023 1 1 Reason Comments Follow-up CT f/u Care Teams (unrecognized sec tion and content) Electronic Component Processor Relationship Specialty Start Date End Date Deidre Borrero MD [address] [facility] [place] [phone] PCP - General Family Medicine 08/05/22 Electronic Component Processor Relationship Specialty Start Date End Date Deidre Borrero MD [address] [place] [phone] PCP - General Family Medicine 08/05/22 Electronic Component Processor Relationship Specialty Start Date End Date Deidre Borrero MD [address] [place] [phone] PCP - General Family Medicine 08/05/22 Scheduled Active and Recently Administ ered Medications (unrecognized section and content) PRN Medication Order 08/09/2022 08/10/2022 08/11/2022 hydrALAZINE (Apresoline) injection 10 mg 10 mg, IntraVENous, Every 4 hours PRN, high blood pressure, SBP > 140, hold for HR > 105, use 2nd line, Starting on Mon08/08/22 at 0754 ipratropium-albuterol (Duo-Neb) 0.5-2.5 mg/3 mL nebulizer solution 3 mL 3 mL, Nebulization, As needed, wheezing, Starting on Mon08/07/22 at 1930 labetalol (Normodyne,Trandate) injection 10 mg 10 mg, IntraVENous, Every 4 hours PRN, high blood pressure, SBP < 140, hold for HR < 60, 1st line, Starting on Mon08/08/22 at 0753 1107 (Given - Provider: Ria Paulino RN) naloxone (Narcan) injection 0.4 mg 0.4 mg, IntraVENous, As needed, opioid reversal, pinpoint pupils, Starting on 08/06/22 at 0748, administer IV PRN for oversedation, RR LESS than 10 ondansetron (Zofran) injection 4 mg(Linked Group 1) 4 mg, IntraVENous, Every 6 hours PRN, nausea, vomiting, Starting on Mon08/05/22 at 2256, 1st Line. Give IV if patient is unable to take orally. If inadequate response within 60 minutes, proceed to next-line agent or contact provider if no further options ordered. ondansetron ODT (Zofran-ODT) disintegrating tablet 4 mg(Linked Group 1) 4 mg, Oral, Every 8 hours PRN, nausea, vomiting, Starting on Mon08/05/22 at 2256, 1st Line. If inadequate response within 60 minutes, proceed to next-line agent or contact provider if no further options ordered. Patient should allow tablet to dissolve on tongue. Do not remove from blister pack until just before administering. oxyCODONE (Roxicodone) immediate release tablet 2.5 mg (CANCELED) 2.5 mg, Oral, Every 4 hours PRN, moderate pain (4-6), Starting on 08/06/22 at 1209 0632 (Given - Provider: Digna De La Torre RN) oxyCODONE (Roxicodone) immediate release tablet 2.5 mg 2.5 mg, Oral, Every 4 hours PRN, moderate pain (4-6), severe pain (7-10), Starting on Mon08/10/22 at 1347 0310 (Given - Provider: Lynsey Lund RN) perflutren lipid microspheres (Definity) injection 1.65 mg 1.65 mg, IntraVENous, IMG once PRN, other, Suboptimal echo image, Starting on 08/06/22 at 0937, For 1 dose, Administer up to 1.65 mg via slow IVP for suboptimal echocardiogram enhancement. May administer a calculated dose or diluted 8.5 mL of 0.9% sodium chloride for a total volume of 10 mL. May administer as divided doses to reach optimal image enhancement Linked Groups Order Group 1: ondansetron ODT (Zofran-ODT) disintegrating tablet 4 mgJump to med 4 mg, Oral, Every 8 hours PRN, nausea, vomiting, Starting on Mon08/05/22 at 2256
1st Line. If inadequate response within 60 minutes, proceed to next-line agent or contact provider if no further options ordered. Patient should allow tablet to dissolve on tongue. Do not remove from blister pack until just before administering.
Or ondansetron (Zofran) injection 4 mgJump to med 4 mg, IntraVENous, Every 6 hours PRN, nausea, vomiting, Starting on Mon08/05/22 at 2256
1st Line. Give IV if patient is unable to take orally. If inadequate response within 60 minutes, proceed to next-line agent or contact provider if no further options ordered.
INFORMATION SOURCE (unrecogn ized section and content) FOR RECORDS PERTAINING TO PATIENTS WHO ARE OR HAVE BEEN ENROLLED IN A CHEMICAL DEPENDENCY/SUBSTANCEABUSE PROGRAM, SOME INFORMATION MAY BE OMITTED. This clinical summary was aggregated from multiple sources. Caution should be exercised in using it in the provision of clinical care. This summary normalizes information from multiple sources, and as a consequence, information in this document may materially change the coding, format and clinical context of patient data. In addition, data may be omitted in some cases. CLINICAL DECISIONS SHOULD BE BASED ON THE PRIMARY CLINICAL RECORDS. [employer] provides no warranty or guarantee of the accuracy or completeness of information in this document.
[2023-05-06] MEDS: 0.9% Normal Saline (1000mL) 1,000 ML 100 ML IV ×2 (10:27→15:09)
[2023-05-06 10:49] LABS: Absolute Lymphocyte Count 0.93 X10^3/uL (0.83-4.51); Absolute Neutrophil Count 8.3 X10^3/uL (2.0-7.7); Basophil# 0.02 X10^3/uL; Basophil% 0.2 % (0-1); Eosinophil# 0.03 X10^3/uL; Eosinophils% 0.3 % (0-5); Hematocrit 37.8 % (37-47); Hemoglobin 11.8 g/dL (12.0-15.0); Lymphocyte # 0.93 X10^3/ul (0.83-4.51); Lymphocyte % 9.1 % (19-41); Mean Corp Hgb Conc 31.2 g/dL (32-36); Mean Corpuscular Hgb 28.6 pg (27.0-32.0); Mean Corpuscular Volume 91.5 fL (81-99); Mean Platelet Vol. 9.8 fl (6.2-12.0); Monocyte# 0.83 X10^3/uL; Monocyte% 8.2 % (0-10); NRBC Flagged by Analyzer 0 % (0-5); Neutrophil # 8.33 X10^3/uL (2.7-7.7); Neutrophil % 81.9 % (47-70); Platelet Count 336 K/mm3 (150-450); RBC Distribution Width CV 16.8 % (11.6-14.6); Red Blood Count 4.13 M/mm3 (4.2-5.4); White Blood Count 10.2 K/mm3 (4.4-11.0)
[2023-05-06 11:07] LABS: ALB/GLOB Ratio 0.6 RATIO (0.9-2.4); AST(SGOT) 10 U/L (15-37); Alanine Aminotransfer ALT/SGPT 14 U/L (13-56); Albumin, Serum 1.9 g/dL (3.2-5.0); Alkaline Phosphatase 122 U/L (45-117); Anion Gap 10 (5-15); BUN 26 mg/dL (7-18); BUN/Creat Ratio 14.8 RATIO (10-20); Calcium,Total 7.7 mg/dL (8.5-10.1); Chloride 107 mmol/L (98-107); Creatinine, Serum 1.76 mg/dL (0.55-1.02); EST Glomerular Filtration Rate 29 mL/min (>60); Est Glom Filt Rate - Afr Amer 35 mL/min (>60); Estimated Creatinine Clearance 14.97 ml/min; Globulin 3.3 g/dL (2.2-4.2); Glucose 98 mg/dL (74-106); Potassium 3.9 mmol/L (3.5-5.1); Protein, Total 5.2 g/dL (6.4-8.2); Sodium Level 139 mmol/L (136-145); Troponin-I HS 12 pg/mL (3.0-54.0)
[2023-05-06 11:28] LABS: Alcohol, Blood (Medical)-Serum < 3.0 mg/dL
--- NOTE | 2023-05-06 11:35 | RAD_ITS ---
INDICATION: cough, confusion EXAMINATION/TECHNIQUE: X-RAY - XR Chest 2 Views COMPARISON: Prior study dated: 08/29/2022. FINDINGS: LINES/DEVICES: None. LUNGS: Bilateral lower lungs infiltrates worse than the previous exam. Increased right pleural effusion. MEDIASTINUM AND CARDIOVASCULAR STRUCTURES: Cardiac silhouette not enlarged. Central airways and mediastinal contour are unremarkable. BONES AND SOFT TISSUES: Unchanged osseous structures. RAD/Chest PA and Lateral IMPRESSION: 1. Bilateral lower lungs infiltrates worse in the right side be due to pneumonia. 2. Moderate right pleural effusion increased since the previous exam. Electronically Signed: Nic Roberts MD at 12:13 EST ,
--- OUTSIDE RECORDS SUMMARY | 2023-05-06 12:58 | XMS RPT_ITS | CCD ---
Author Name Unknown Address [address] [place] [address] Organization [facility] Care Team Providers Care Sawmill Supervisor Name Role Phone Sourav VICTORIA, Snowflake Primary Care Provider LEANN, RATHNA Referring Unavailable [facility] Primary Care Unavailable LEANN, RATHNA Referring Unavailable [facility] Primary Care Unavailable LEANN, RATHNA Admitting Unavailable LEANN, RATHNA Attending Unavailable KARTHIK COLON Referring Unavailable [facility] Primary Care Unavailable JOSE MARIA LYN Consulting Unavailable ORLY VIZCAINO Consulting Unavailable LEANN, RATHNA Referring Unavailable [facility] Primary Care Unavailable LEANN, RATHNA Referring Unavailable [facility] Primary Care Unavailable LEANN, RATHNA Referring Unavailable [facility] Primary Care Unavailable LEANN, RATHNA Referring Unavailable [facility] Primary Care Unavailable ZION HILLMAN Attending Unavailable [facility] Primary Care Unavailable ZION HILLMAN Attending Unavailable [facility] Primary Care Unavailable CAMPOS GARDUNO Referring Unavailable [facility] Primary Care Unavailable Allergies Allergy Classification Reported Allergen(s) Allergy Type Date of Onset Reaction(s) Facility (8 sources) diphenhydrAMINE Drug Allergy 05-03-2022 Other [facility] (8 sources) pine bark extract Drug Allergy 08-05-2022 [facility] (3 sources) Pseudoephedrine Drug Allergy 09-15-2022 [facility] Medications Current Medications Medication Drug Class(es) Dates [...] loss of consciousness status unknown, initial encounter ([facility]); Translations: [Traumatic subdural hemorrhage with loss of consciousness status unknown, initial encounter ([facility])] Onset: 09-15-2022 Past or Other Problems Problem Classification Problem Date Documented Date Episodic/Chronic Unclassified (1 source) Traumatic subdural hemorrhage with loss of consciousness status unknown, initial encounter ([facility]); Translations: [Traumatic subdural hemorrhage with loss of consciousness status unknown, initial encounter ([facility])] Onset: 09-15-2022 Results Test Name Value Interpretation Reference Range Facil ity Vital Signs Date Time Vital Sign Value Performing Clinician Faci lity 11-01-2022 10:20-0400 Body height 152.4 cm Zion Hillman MD Work Phone: [facility] 11-01-2022 10:20-0400 Body mass index (BMI) [Ratio] 14.06 kg/m2 Zion Hillman MD Work Phone: [facility] 11-01-2022 10:20-0400 Body temperature 97.7 [degF] Zion Hillman MD Work Phone: [facility] 11-01-2022 10:20-0400 Body weight 32.66 kg Zion Hillman MD Work Phone: [facility] 11-01-2022 10:20-0400 Diastolic blood pressure 73 mm[Hg] Zion Hillman MD Work Phone: [facility] 11-01-2022 10:20-0400 Heart rate 96 /min Zion Hillman MD Work Phone: [facility] 11-01-2022 10:20-0400 Respiratory rate 16 /min Zion Hillman MD Work Phone: [facility] 11-01-2022 10:20-0400 Systolic blood pressure 107 mm[Hg] Zion Hillman MD Work Phone: [facility] 08-11-2022 14:03-0400 Body temperature 98.2 [degF] Rolan Noriega MD Work Phone: [facility] 08-11-2022 14:03-0400 Diastolic blood pressure 78 mm[Hg] Rolan Noriega MD Work Phone: [facility] 08-11-2022 14:03-0400 Heart rate 114 /min Rolan Noriega MD Work Phone: [facility] 08-11-2022 14:03-0400 Respiratory rate 16 /min Rolan Noriega MD Work Phone: [facility] 08-11-2022 14:03-0400 SaO2% (BldA) [Mass fraction] 95 % Rolan Noriega MD Work Phone: [facility] 08-11-2022 14:03-0400 Systolic blood pressure 129 mm[Hg] Rolan Noriega MD Work Phone: [facility] 08-07-2022 10:07-0400 Body height 152.4 cm Rolan Noriega MD Work Phone: [facility] 08-06-2022 14:39-0400 Body mass index (BMI) [Ratio] 17.77 kg/m2 Rolan Noriega MD Work Phone: [facility] 08-06-2022 14:39-0400 Body weight 41.28 kg Rolan Noriega MD Work Phone: [facility] Encounters Encounter Date Encounter Type Care Provider Facility Start: 11-01-2022 End: 11-01-2022 ambulatory ZION HILLMAN [facility] Start: 11-01-2022 End: 11-01-2022 Office outpatient visit 15 minutes Zion Hillman MD Work Phone: [facility] Procedures Date Procedure Procedure [...] ast 12 lds i&r only Amisha A Macon DO Work Phone: Start: 08-07-2022 Cul bact [...] Activity Detail Author Start: 12-23-2022 Influenza vaccination [facility] Start: 11-01-2022 End: 11-01-2022 Patient encounter procedure 11/01/2022 10:15 AM EDT Office Visit [address] [id number] Zion Hillman MD [address] [place] [id number] [facility] Start: 09-16-2000 Pneumococcal Vaccine: 65+ Years (1 - PCV) Pneumococcal Vaccine: 65+ Years (1 - PCV) [facility] Start: 09-16-1985 Zoster Vaccines (1 of 2) Zoster Vaccines (1 of 2) [facility] Start: 09-16-1954 DTaP/Tdap/Td Vaccines (1 - Tdap) DTaP/Tdap/Td Vaccines (1 - Tdap) [facility] Start: 09-16-1954 Hepatitis A Vaccines (1 of 2 - Risk 2-dose series) Hepatitis A Vaccines (1 of 2 - Risk 2-dose series) [facility] Start: 09-16-1953 Diabetes mellitus screening Diabetes Screening [facility] Start: 1947 Depression Screening Depression Screening [facility] Start: 09-16-1941 Pneumococcal Vaccine: 65+ Years (1 - PCV) Pneumococcal Vaccine: 65+ Years (1 - PCV) [facility] Start: 03-19-1936 COVID-19 Vaccine (#1) COVID-19 Vaccine (#1) [facility] Start: 1935 Hepatitis B Vaccines (1 of 3 - 3-dose series) Hepatitis B Vaccines (1 of 3 - 3-dose series) [facility] Start: 1935 Lipid panel Lipid Panel [facility] Start: 1935 Screening for osteoporosis Bone Density Scan [facility] OUTSIDE PROCEDURE SCAN OUTSIDE P ROCEDURE SCAN Procedures Ordered: 10/21/2022 [facility] Payers Date Payer Category Payer Medicare [employer] MEDICARE UHC AARP MEDICARE ADVANTAGE [id number] 2022-Present [phone] [address] [address] [place] [address] Medicare HMO [id number] 2022 Medicare [id number] 2021 [place] [id number] 2021-Present [address] [place] [address] Medicaid [id number] 2021 Medicaid [id number] Social History Date Type Detail Facility Start: 08-05-2022 Tobacco smoking status KYIS Smokes t obacco daily [facility] End: 08-05-2022 History of tobacco use Cigarette Smoker [facility] Start: 08-05-2022 End: 09-15-2022 Tobacco use and exposure Smokeless tobacco non-user [facility] Start: 08-09-2022 End: 09-15-2022 Alcohol intake Current drinker of alcohol (finding) [facility] Start: 08-09-2022 End: 09-15-2022 Alcohol intake [facility] Start: 1935 Sex Assigned At Female [facility] Start: 07-27-2022 End: 11-01-2022 Exposure to SARS-CoV-2 (event) Not sure [facility] Start: 09-15-2022 Tobacco smoking status [facility] Ex-smoke r [facility] End: 08-05-2022 History of tobacco use Current smoker [facility] Start: 09-15-2022 Tobacco use panel [facility] Start: 08-05-2022 Gender identity Identifies as female gender (finding) [facility] Start: 08-05-2022 Sexual orientation Heterosexual (fin ding) [facility] Clinical Notes 08-06-2022 to 11-01-2022 Zion Hillman [...] mouth daily. 04/19/22 Historical Provider, Allergies: Diphenhydramine, Cataño, and Sudafed [pseudoephedrine] Social History: TOBACCO: reports [...] Subdural hematoma (HCC) documented in this encounter [facility] 08-11-2022 Note Attestation signed by Tracy Pérez [...] Brief HPI 86 y.o. female status [facility]. The incident happened around 8AM [...] intracranial hemorrhage and left wrist fracture at [facility]. Patient was a direct admit [...] thoracic spine wit (more content not included)... [facility] 08-11-20[facility] Nurse Note Report called to [facility]. [phone] [facility] 08-11-2022 Nurse Note Report called to Peri [facility]. [phone] Spoke with resident about hydralazine order parameters , it is use as first line for BP greater than 140 although patients heart rate is greater then 110 . New orders received documented in this encounter [facility] 08-11-2022 History of Presen t illness Narrative [...] time taken for stance. Pt ambulation with CASTING SUPERVISOR, postural instability throughout and difficulty during turns. [...] static standing balance, no LOB, flexed posture, CASTING SUPERVISOR x 1 Exercises Quad Sets: AROM BLE [...] Inpatient Mobility Raw Score: 14 Mobility Inpatient [facility] G-Code Modifier: CL Goals Encounter Problems Encounter [...] Timed Code Treatment Minutes: (1gt-1tp) LOPEZ Rod MARKET DEVELOPMENT MANAGER Images from the original note were not included. Daily Trauma Progress Note DEAN 08/11/2022 6:29 AM Admit Date: 08/05/2022 Post Trauma Day 6 Fall Mechanical HISTORY OF TRAUMATIC EVENT: 86 y.o. female status [facility]. The incident happened around 8AM [...] guard, watchful, or easily startled? No 4. [place] numb or detached from people, activities, or your surroundings? No 5. [place] guilty or unable to stop blaming yourself [...] diet - Ensure TID - Follow up [employer] Worker recs - Zofran PRN - Bowel regimen: [...] recommending facility based therapy -->referral sent to [facility] Level of Medical Decision Making: [...] MD Division of Trauma Department of Surgery [facility] Pager: [phone] Dr. Garcia at pt side to remove CT. 1220- CT removed by Dr. Garcia, pt tolerated well, and is sitting comfortably with no needs at this time. Images from the original note were not included. Daily Trauma Progress Note Resident 08/10/2022 6:09 AM Admit Date: 08/05/2022 Post Trauma Day 5 Fall Mechanical HISTORY OF TRAUMATIC EVENT: 86 y.o. female status [facility]. The incident happened around 8AM [...] guard, watchful, or easily startled? No 4. [place] numb or detached from people, activities, or your surroundings? No 5. [place] guilty or unable to stop blaming yourself [...] 5 mg PRN - Neurosurgery consulted - [facility] stable - Seizure ppx: none - Elevate [...] diet - Ensure TID - Follow up [employer] Worker recs - Zofran PRN - Bowel regimen: [...] risk for delirium I personally supervised the resident/FACILITY MAINTENANCE TECHNICIAN/BELÉN in the evaluation and development of a [...] 5 mg PRN - Neurosurgery consulted - [facility] stable - Seizure ppx: none - Elevate [...] diet - Ensure TID - Follow up [employer] Worker recs - Zofran PRN - Bowel regimen: [...] exam and evaluation Arnaldo Mitchell MD [facility] Trauma, Surgical Critical Care, & General Surgery Division of Trauma Department of Surgery [facility] Ed P Occupational Therapy Facility/Department: Room: [facility] Occupational Therapy Initial Evaluation NAME: Dayana Salamanca [...] ambulation to/from toilet with min assist and CASTING SUPERVISOR. Pt unsteady on her feet and is [...] Plan of Care supervision is transferred to [facility] Occupational Therapist. This provider wore a surgical mask and gloves for the duration of the session with this pt. Dominga Davidson MS, OTR/L Physical Therapy Facility/Department: T2 Physical Therapy Initial Evaluation NAME: Dayana Salamanca : 1935 Date of Service: 08/09/2022 Discharge Recommendations: Facility based therapy PT Equipment Recommendations Equipment Needed: No Assessment Requires PT Follow-Up: Yes Assessment: 86 y.o. female admitted to [facility] for fall with SDH, SAH, and L [...] TRAUMATIC EVENT: 86 y.o. female status [facility]. The incident happened around 8AM [...] Daily, Yolanda Garcia MD, 25 mcg at 08/08/22 0745 furosemide [...] guard, watchful, or easily startled? No 4. [place] numb or detached from people, activities, or your surroundings? No 5. [place] guilty or unable to stop blaming yourself [...] Start Ensure TID - LFTs - Consult supervisor fiber locking - Consult colorectal for rectal prolapse - [...] risk for delirium I personally supervised the resident/FACILITY MAINTENANCE TECHNICIAN/BELÉN in the evaluation and development of a [...] tylenol, PRN oxy - Neurosurgery consulted - [facility] stable - Seizure ppx: none - Elevate [...] Start Ensure TID - LFTs - Consult supervisor fiber locking - Consult colorectal for rectal prolapse - [...] exam and evaluation Arnaldo Mitchell MD [facility] Trauma, Surgical Critical Care, & General Surgery Division of Trauma Department of Surgery [facility] Ed P Physical Therapy Patient currently having chest [...] TRAUMATIC EVENT: 86 y.o. female status [facility]. The incident happened around 8AM [...] tablet 500 mg, 500 mg, Oral, q8h, Yloanda Garcia MD, 500 mg at 08/08/22 0613 [...] guard, watchful, or easily startled? No 4. [place] numb or detached from people, activities, or your surroundings? No 5. [place] guilty or unable to stop blaming yourself [...] tylenol, PRN oxy - Neurosurgery consulted - [facility] stable - Seizure ppx: none - Elevate [...] risk for delirium I personally supervised the resident/FACILITY MAINTENANCE TECHNICIAN/BELÉN in the evaluation and development of a [...] tylenol, PRN oxy - Neurosurgery consulted - [facility] stable - Seizure ppx: none - Elevate [...] Surgery Division of Trauma Department of Surgery [facility] Ed P Nutrition Assessment Type and Reason for [...] Thigh (quadraceps), Scapula (trapezius) Fluid Accumulation: Mild Immigration Coordinator Strength: Not Performed Nutrition Assessment: Pt admitted [...] - no surgical intervention @ this time. HEEL VARNISHER completed swallow eval 08/06 with recommendations for [...] Total Energy Requirements (kcals/day): 28-32 kcal/kg = 4647-9286 kcal Weight Used for Protein Requirements: Current [...] (91 lb) (08/06) Weight Source: Not Specified [place] Body Weight (lbs) (Calculated): 100 lbs [place] Body Weight (Kg) (Calculated): 45 kg % [place] Body Weight (Calculated): 91 % BMI (kg/m2) [...] to determine Edel Herring RD Contact: phone *[phone] Images from the original note were not included. Daily Trauma Progress Note Resident 08/07/2022 6:17 AM Admit Date: 08/05/2022 Post Trauma Day 2 Fall Mechanical HISTORY OF TRAUMATIC EVENT: 86 y.o. female status post [facility]. The incident happened around 8AM [...] solution 3 mL, 3 mL, Nebulization, TID, John Marin MD, 3 mL at 08/06/222010 labetalol [...] guard, watchful, or easily startled? No 4. [place] numb or detached from people, activities, or your surroundings? No 5. [place] guilty or unable to stop blaming yourself [...] tylenol, PRN dilaudid - Neurosurgery consulted - [facility] stable - Seizure ppx: none - Elevate [...] PRN - Bowel regimen: miralax prn - HEEL VARNISHER consulted - Daily BMP, Mg, Phos - [...] - Aggressive pulmonary hygiene Gastrointestinal system - HEEL VARNISHER - Bowel regimen # Rectal prolapse - [...] FACS Division of Trauma Department of Surgery [facility] Ed ~~~~~~~~~~~~~~~~~~~~~~~~~~~~~~~~~ ~~~~~~~~~~~~~~~~~~~~~~~~~~~~ This note may have been dictated using [employer] Practice Edition 2.6 and/or [employer] Voice Recognition Feature. The document was proofread; however, unrecognized voice recognition black and white printer operator errors may be present. Images from the original note were not included. Speech-Language Pathology SPEECH LANGUAGE PATHOLOGY [facility] Bedside Swallow Evaluation Patient Name: Dayana Salamanca Evaluation Date: 08/06/2022 Date of : 1935 Admission Date: 08/05/2022 10:10 PM Age: 86 y.o. Room/Bed: [facility] A Admission Diagnosis: does not have [...] have food prepared pre-sliced/cut. No skilled acute HEEL VARNISHER indicated at this time. Please reconsult should changes occur. Subjective Patient alert and cooperative. Seen upright in bed. Answers all basic questions with clear, strong vocal quality. Follows all basic commands. No visitors at b/s. Spoke with RN who cleared pt to be evaluated. Dysphagia History: No history of HEEL VARNISHER services in EMR with retrospective chart review [...] Start: 08/06/22 Expected End: 08/20/22 Therapy Time HEEL VARNISHER Individual Minutes Time In: 0930 Time Out: [...] Surgery Division of Trauma Department of Surgery [facility] Ed Images from the original note were not included. Daily Trauma Progress Note Resident 08/06/2022 7:36 AM Admit Date: 08/05/2022 Post Trauma Day 1 Fall Mechanical HISTORY OF TRAUMATIC EVENT: 86 y.o. female status [facility]. The incident happened around 8AM [...] guard, watchful, or easily startled? No 4. [place] numb or detached from people, activities, or your surroundings? No 5. [place] guilty or unable to stop blaming yourself [...] tylenol, PRN dilaudid - Neurosurgery consulted - [facility] stable - Seizure ppx: none - Elevate [...] PRN - Bowel regimen: miralax prn - HEEL VARNISHER consulted - Daily BMP, Mg, Phos : [...] - Aggressive pulmonary hygiene Gastrointestinal system - HEEL VARNISHER - diet - Bowel regimen Renal function [...] FACS Division of Trauma Department of Surgery [facility] Ed ~~~~~~~~~~~~~~~~~~~~~~~~~~~~~~~~~ ~~~~~~~~~~~~~~~~~~~~~~~~~~~~ This note may have been dictated using [employer] Practice Edition 2.6 and/or [employer] Voice Recognition Feature. The document was proofread; however, unrecognized voice recognition black and white printer operator errors may be present. documented in this encounter [facility] 08-11-2022 Note Formatting of this n ote might be different from the original. [facility] Transport set for 5pm with Dominik Marten via cot. Patient and staff notified of pending dc and lease picker time. [facility] 08-11-2022 Miscellaneous Notes Auth [facility] Transport set for 5pm with Dominik Marten via cot. Patient and staff notified of pending dc and lease picker time. Met with patient at bedside with chun Mckeon on phone, discussed therapy recommendations, is agreeable to placement. Discussed transportation and is agreeable. Will follow. Patient Choice Patient Name: DAYANA SALAMANCA Date of : 1935 All Providers Sent Referral Name: [facility] Address: [address] [place] [address] [facility] able to accept, submitting for insurance approval. Medical Plan: Chest tube in place. CXR completed. PT/OT recs FBT. Met with patient discussed therapy recommendations would like to go to [facility]. Referral sent. Will need insurance approval. Will follow. Discharge plan:[facility]? Discharge barriers: none S/p right thoracentesis [...] Limits Permission given to speak with patient dairy supplies sales representative/caregiver as indicated: Yes Confirmation of [...] improved Outcome: Progressing documented in this encounter [facility] 08-11-2022 Note Formatting of this n ote might be different from the original. Met with patient at bedside with son Mike on phone, discussed therapy recommendations, is agreeable to placement. Discussed transportation and is agreeable. Will follow. [facility] 08-10-2022 Consult note Associated Order (s): IP [...] Thigh (quadraceps), Scapula (trapezius) Fluid Accumulation: Mild Immigration Coordinator Strength: Not Performed Nutrition Assessment: Pt is an 86 year old female with PMH that includes HTN who admits 08/05 after a mechanical fall. Found to have traumatic acute SDH and SAH; bilateral pleural effusions; and left distal radius with associated distal ulna fracture. Ortho performed closed reduction of L distal radius 08/06. Neurosurgery following - no surgical intervention @ this time. HEEL VARNISHER completed swallow eval 08/06 with recommendations for Regular/Thin. Pt is s/p right thoracentesis on 08/07 and is s/p Right chest tube on 08/08. Pt endorsed decreased appetite MARKET DEVELOPMENT MANAGER. UBW 77-90#, pt told RD her highest [...] Total Energy Requirements (kcals/day): 28-32 kcal/kg = 2496-3214 kcal Weight Used for Protein Requirements: Current [...] (91 lb) (08/06) Weight Source: Not Specified [place] Body Weight (lbs) (Calculated): 100 lbs [place] Body Weight (Kg) (Calculated): 45 kg % [place] Body Weight (Calculated): 91 % BMI (kg/m2) [...] Planning: Too soon to determine Adina Pinto RD,LD,[facility] Contact: *[phone] or [employer] Chat T [facility] 08-10-2022 Consult note Associated Order (s): IP [...] Thigh (quadraceps), Scapula (trapezius) Fluid Accumulation: Mild Immigration Coordinator Strength: Not Performed Nutrition Assessment: Pt is an 86 year old female with PMH that includes HTN who admits 08/05 after a mechanical fall. Found to have traumatic acute SDH and SAH; bilateral pleural effusions; and left distal radius with associated distal ulna fracture. Ortho performed closed reduction of L distal radius 4/15. Neurosurgery following - no surgical intervention @ this time. HEEL VARNISHER completed swallow eval 08/06 with recommendations for Regular/Thin. Pt is s/p right thoracentesis on 08/07 and is s/p Right chest tube on 08/08. Pt endorsed decreased appetite MARKET DEVELOPMENT MANAGER. UBW 77-90#, pt told RD her highest [...] Total Energy Requirements (kcals/day): 28-32 kcal/kg = 7988-0507 kcal Weight Used for Protein Requirements: Current [...] (91 lb) (08/06) Weight Source: Not Specified [place] Body Weight (lbs) (Calculated): 100 lbs [place] Body Weight (Kg) (Calculated): 45 kg % [place] Body Weight (Calculated): 91 % BMI (kg/m2) [...] soon to determine Adina Pinto RD,LD,CNSC Contact: *[phone] or [employer] Chat Images from the original note were [...] dying let me asked if she has [place] DNR form, tells me she does not, clarified no chest compressions, defibrillation, intubation or vent supports, agrees, aware will fill out [place] form for portability and provide her with original to have with her paperwork. Is very thankful - [place] DNRCCA-DNI form filled out and placed on [...] in home resultant in fall, went to [facility] with stability, no [...] parents have Allergies Allergen Reactions Diphenhydramine Other Cataño Review of Systems ROS: See palliative care ROS/ESAS below; All other systems were reviewed and are negative. [place] Symptom Assessment Score [place] Score Pain Score 0 Tiredness Score 0 [...] Salamanca has been seen in consultation by [facility] during their admission to [facility]. They currently have no uncontrolled symptoms [...] not crush or chew. Allergies: Diphenhydramine and Cataño Social History Socioeconomic History Marital status: Tobacco [...] Narrative: [facility] 1935 [id number] Ex[facility] Date/Time: 08/06/2022 05:19 Procedure: CT CHEST [...] Narrative: Patient Name: [facility]CA [facility] 1935 [id number] Exam Date/Time: 08/06/2022 05:19 Procedure: CT HEAD [...] This note may have been dictated using [employer] Practice Edition 2.6 and/or [employer] Voice Recognition Feature. The document was proofread; however, unrecognized voice recognition black and white printer operator errors may be present. Associated Order(s): IP CONSULT TO NEUROSURGERY NEUROSURGERY and SPINE CONSULT NOTE Patient Name: Dayana Salamanca Patient : 1935 PCP: Deidre Borrero MD History of Present Ilness: 86 y.o. presents with history of having fallen at approximately 8 AM yesterday morning. She was subsequently seen at [facility] where a CAT scan was performed and she was transferred to [facility]. She apparently did not lose consciousness. She currently has no complaints and neurological review of systems is negative. She appears to be functioning at her baseline. Past Medical History: Past Medical History: Diagnosis Date HTN (hypertension) Past Surgical History: No past surgical history on file. Home Medications: Prior to Admission medications Not on File Allergies: Diphenhydramine and Cataño Social History: TOBACCO: reports that she has [...] 435 ms QTC Interval 514 ms P Mason degrees QRS Mason -29 degrees T Wave Mason 131 degrees DE Interval ms CBC auto differential Collection Time: [...] 423 ms QTC Interval 496 ms P Mason degrees QRS Mason -29 degrees T Wave Mason 121 degrees DE Interval ms CBC auto differential Collection Time: [...] 435 ms QTC Interval 490 ms P Mason degrees QRS Mason -32 degrees T Wave Mason 114 degrees DE Interval ms Radiology Personal review: CT head [...] provider. Associated Order(s): IP CONSULT TO GERIATRICS [facility] Geriatric Medicine Inpatient Consult Service Admission [...] known - Advised to follow up with [facility] after discharge. # High Risk for Delirium [...] that she was born and raised in [facility] [facility] but moved to [place] many years after she got . Lived in different states. of 48 years in 2002. Patient moved back to [place] in August 2021. Has a son that lives in [place]. Visited him and his family in December 2021. Patient had a great time with her grandchildren, son and . Labs: remarkable for Pro BNP 3, 880 Cxray: Lt Pulmonary effusion, glass ground effusion. CT head consistent with stable right sided subdural hematoma. Conversation with caregiver: Peri ( niece- [phone]). -Peri was on the phone with the patient when she had a fall in her trailer at around 7 30-9 a.m. - Reports has no major concern for the patient. Advance Care Planning Healthcare Power ofAttorney: Yes, Tres [employer]teh [employer] Power of Information Technology Officer: Yes, SonTres Living Will:Yes Code Status: Full Code Allergies Allergen Reactions Diphenhydramine Cataño Current Facility-Administered Medications: acetaminophen (Ofirmev) injection 600 [...] with significantly more driving errors J Gen Floriculture Professor Med 2005; 20:240-244 Labs and Imaging: Recent Results (from the past 24 hour(s)) Electrocardiogram, 12-lead Collection Time: 08/05/22 11:12 PM Result Value Ref Range Heart Rate 84 bpm QRSD Interval 115 ms QT Interval 435 ms QTC Interval 514 ms P Mason degrees QRS Mason -29 degrees T Wave Mason 131 degrees DE Interval ms CBC auto differential Collection Time: [...] 423 ms QTC Interval 496 ms P Mason degrees QRS Mason -29 degrees T Wave Mason 121 degrees DE Interval ms CBC auto differential Collection Time: [...] 435 ms QTC Interval 490 ms P Mason degrees QRS Mason -32 degrees T Wave Mason 114 degrees DE Interval ms No results found for: TSH [...] lines, as able documented in this encounter [facility] 08-10-2022 Note Formatting of this n ote might be different from the original. Patient Choice Patient Name: DAYANA SALAMANCA Date of : 1935 All Providers Sent Referral Name: [facility] Address: [address] [place] [address] [facility] 08-10-2022 Note Formatting of this n ote might be different from the original. [facility] able to accept, submitting for insurance approval. T [facility] 08-10-2022 Note Formatting of this n ote might be different from the original. Medical Plan: Chest tube in place. CXR completed. PT/OT recs FBT. Met with patient discussed therapy recommendations would like to go to [facility]. Referral sent. Will need insurance approval. Will follow. Discharge plan:[facility]? Discharge barriers: none [facility] 08-08-2022 Note Attestation signed by Robert Mitchell MD at 08/08/2022 9:55 PM Attending physician addendum: I was immediately available to the bedside for the entire procedure. Patient tolerated procedure well. Arnaldo Mitchell MD [facility] Trauma, Surgical Critical Care, & General Surgery Division of Trauma Department of Surgery [facility] P Chest Tube Procedure Note Indication: Pneumothorax [...] small skin incision & dilation, a/an 14 Belgian pigtail catheter was passed over the guidewire [...] documented as signed by this procedure note. Refresh Technician(s): Dr. Johnson Supervision: Supervision was required for this procedure. Dr. Johnson was physically present and supervised all singletary elements of the procedure. [facility] 08[facility] Note Physical Therapy Patient currently having chest tube place. PT evaluation held. [facility] 08-08-2022 Procedure note Procedure(s): CHEST TUBE INSERTION [...] small skin incision & dilation, a/an 14 Belgian pigtail catheter was passed over the guidewire [...] documented as signed by this procedure note. Refresh Technician(s): Dr. Johnson Supervision: Supervision was required for this procedure. Dr. Johnson was physically present and supervised all singletayr elements of the procedure. Associated attestation - Robert Mitchell MD - 08/08/2022 9:55 PM EDT Attending physician addendum: I was immediately available to the bedside for the entire procedure. Patient tolerated procedure well. Arnaldo Mitchell MD FACS Trauma, Surgical Critical Care, & General Surgery Division of Trauma Department of Surgery [facility] 08-08-2022 Procedure note Procedure(s): CHEST TUBE [...] small skin incision & dilation, a/an 14 Belgian pigtail catheter was passed over the guidewire [...] documented as signed by this procedure note. Refresh Technician(s): Dr. Johnson Supervision: Supervision was required for [...] Surgery Division of Trauma Department of Surgery [facility] P documented in this encounter [facility] 08-08-2022 Plan of care note S/p right thoracentesis on 08/07. Chest xray from this morning demonstrated small right apical pneumothorax. Discussed with radiologists who recommend repeat chest x-ray this afternoon to re-evaluate pneumothorax. Communicated this to Dr. Garcia via Secure Chat. [employer] Phone: 08-08-2022 Consult note Formatting of th [...] dying let me asked if she has [place] DNR form, tells me she does not, clarified no chest compressions, defibrillation, intubation or vent supports, agrees, aware will fill out [place] form for portability and provide her with original to have with her paperwork. Is very thankful - [place] DNRCCA-DNI form filled out and placed on [...] in home resultant in fall, went to [facility] CTH revealing SDH transferred to [facility] [...] parents have Allergies Allergen Reactions Diphenhydramine Other Cataño Review of Systems ROS: See palliative care ROS/ESAS below; All other systems were reviewed and are negative. [place] Symptom Assessment Score [place] Score Pain Score 0 Tiredness Score 0 [...] Assessed by: patient and provider. Social history: [place] status: no Marital status: Living status: alone [...] Salamanca has been seen in consultation by [facility] during their admission to [facility]. They currently have no uncontrolled symptoms and have established goals of care and we have signed off of their case. The patient has established follow-up with PCP. [employer] Work Phone: 08-08-2022 Nurse Note Spoke with resident about hydralazine order parameters , it is use as first line for BP greater than 140 although patients heart rate is greater then 110 . New orders received [facility] [employer] 08-08-2022 Note Formatting of this n ote might be different from the original. Care Managment Initial Assessment Date: 08/09/2022 Patient Name: Dayana Salamanca : 1935 Patient Information Source of Information: Patient Cognition/Language: WFL - Within Functional Limits Permission given to speak with patient dairy supplies sales representative/caregiver as indicated: Yes Confirmation of Payer with patient/family: Yes Payer Name: [facility] : No Confirmation of Primary Care [...] at dc. Will follow. Mp Heredia RN [facility] [employer] 08-07-2022 Plan of care note Problem: Knowledge Deficit Goal: Patient/family/caregiver demonstrates understanding of disease process, treatment plan, medications, and discharge instructions Outcome: Progressing Problem: Potential for Compromised Skin Integrity Goal: Skin Integrity is Maintained or Improved Outcome: Progressing Goal: Nutritional status is improving Outcome: Progressing Problem: Urinary Incontinence Goal: Perineal skin integrity is maintained or improved Outcome: Progressing [facility] [employer] 08-07-2022 Consult note Formatting of th is [...] not crush or chew. Allergies: Diphenhydramine and Cataño Social History Socioeconomic History Marital status: Tobacco [...] Narrative: [facility] 1935 [id number] Ex[facility] Date/Time: 08/06/2022 05:19 Procedure: CT CHEST [...] Narrative: Patient Name: DAYANA SALAMANCA : 1935 [facility]#: [id number] Exam Date/Time: 08/06/2022 05:19 Procedure: CT HEAD [...] This note may have been dictated using [employer] Edition 2.6 and/or [employer] Voice Recognition Feature. The document was proofread; however, unrecognized voice recognition black and white printer operator errors may be present. T [facility] 08-06-2022 Consult note Associated Order (s): IP CONSULT TO NEUROSURGERY NEUROSURGERY and SPINE CONSULT NOTE Patient Name: Dayana Salamanca Patient : 1935 PCP: Deidre Borrero MD History of Present Ilness: 86 y.o. presents with history of having fallen at approximately 8 AM yesterday morning. She was subsequently seen at [facility] where a CAT scan was performed and she was transferred to [facility]. She apparently did not lose consciousness. She currently has no complaints and neurological review of systems is negative. She appears to be functioning at her baseline. Past Medical History: Past Medical History: Diagnosis Date HTN (hypertension) Past Surgical History: No past surgical history on file. Home Medications: Prior to Admission medications Not on File Allergies: Diphenhydramine and Cataño Social History: TOBACCO: reports that she has [...] 435 ms QTC Interval 514 ms P Mason degrees QRS Mason -29 degrees T Wave Mason 131 degrees DE Interval ms CBC auto differential Collection Time: [...] 423 ms QTC Interval 496 ms P Mason degrees QRS Mason -29 degrees T Wave Mason 121 degrees DE Interval ms CBC auto differential Collection Time: [...] 435 ms QTC Interval 490 ms P Mason degrees QRS Mason -32 degrees T Wave Mason 114 degrees DE Interval ms Radiology Personal review: CT head [...] counseling/coordinating care and provided discussion regarding sdh. [employer] Phone: 08-06-2022 Consult note Associated Order (s): IP CONSULT TO PALLIATIVE CARE Consult acknowledged, discussed with eleazar Bui for full consult to be completed 08/08/22, aware should needs change to notify weekend covering provider. [facility] 08-06-2022 Plan of care note Problem: Knowledge Deficit Goal: Patient/family/caregiver demonstrates understanding of disease process, treatment plan, medications, and discharge instructions Outcome: Progressing Problem: Potential for Compromised Skin Integrity Goal: Skin Integrity is Maintained or Improved Outcome: Progressing Goal: Nutritional status is improving Outcome: Progressing Problem: Urinary Incontinence Goal: Perineal skin integrity is maintained or improved Outcome: Progressing [facility] 08-06-2022 Consult note Associated Order (s): IP CONSULT TO GERIATRICS [facility] Geriatric Medicine Inpatient Consult Service Admission [...] known - Advised to follow up with [facility] after discharge. # High Risk for Delirium [...] that she was born and raised in [place] but moved to [place] many years after she got . Lived in different states. of 48 years in 2002. Patient moved back to [place] in August 2021. Has a son that lives in [place]. Visited him and his family in December 2021. Patient had a great time with her grandchildren, son and . Labs: remarkable for Pro BNP 3, 880 Cxray: Lt Pulmonary effusion, glass ground effusion. CT head consistent with stable right sided subdural hematoma. Conversation with caregiver: Peri ( niece- [phone]). -Peri was on the phone with the patient when she had a fall in her trailer at around 7 30-9 a.m. - Reports has no major concern for the patient. Advance Care Planning Healthcare Power ofAttorney: Yes, Tres Conteh Financial Power of Information Technology Officer: Yes, SonTres Living Will:Yes Code Status: Full Code Allergies Allergen Reactions Diphenhydramine Cataño Current Facility-Administered Medications: acetaminophen (Ofirmev) injection 600 mg, 15 mg/kg, IntraVENous, q8h, Lillian Campbell MD, Stopped at 08/06/22 0119 famotidine (Pepcid) injection 20 mg, 20 mg, IntraVENous, BID, Annabelle Bob MD hydrALAZINE (Apresoline) injection 10 mg, 10 mg, IntraVENous, q4h PRN, Annbaelle Bob MD ipratropium-albuterol (Duo-Neb) 0.5-2.5 mg/3 mL [...] with significantly more driving errors J Gen Floriculture Professor Med 2005; 20:240-244 Labs and Imaging: Recent Results (from the past 24 hour(s)) Electrocardiogram, 12-lead Collection Time: 08/05/22 11:12 PM Result Value Ref Range Heart Rate 84 bpm QRSD Interval 115 ms QT Interval 435 ms QTC Interval 514 ms P Mason degrees QRS Mason -29 degrees T Wave Mason 131 degrees DE Interval ms CBC auto differential Collection Time: [...] 423 ms QTC Interval 496 ms P Mason degrees QRS Mason -29 degrees T Wave Mason 121 degrees DE Interval ms CBC auto differential Collection Time: [...] 435 ms QTC Interval 490 ms P Mason degrees QRS Mason -32 degrees T Wave Mason 114 degrees DE Interval ms No results found for: TSH [...] -D/c Burton, restraints, IV lines, as able [employer] Phone: 08-06-2022 Hospital Discharg e instructions Donna [...] with NSGY - For pain: Take Tylenol. [place]ou[place] Oxy for breakthrough pain. This will cause [...] Unit/Room#: W3-337/W3-337 A Discharging Unit Phone Number: [phone] Emergency Contact: Extended Emergency Contact Information Primary Emergency Contact: Mike Salamanca Relation: Mother Preferred language: [place] Professional Nursing Tutor needed? No Secondary Emergency Contact: Chata Cruz Relation: Niece Preferred language: [place] Professional Nursing Tutor needed? No Past Surgical History: History reviewed. [...] Minimal assistance Toileting Minimal assistance Feeding Independent Prize Jacker Minimal assistance Med Delivery yes Wound Care [...] Score: @READMISSIONRISKDETAILS@ Discharging to Facility/ Agency Name: [facility] Address: [address] [place] [address] Fax: Dialysis Facility (if applicable) Name: Address: Dialysis Schedule: Phone: Fax: Parlor Chaperone/Genetic Physician signature: ICIAN SECTION Prognosis: good Condition at Discharge: stable Rehab Potential (if transferring to Rehab): good Recommended Labs or Other Treatments After Discharge: NO ASA until NSGY follow up, ok for dvt chemoprophylaxis with heparin Physician Certification: I certify the above information and transfer of Dayana Salamanca is necessary for the continuing treatment of the diagnosis listed and that she requires penitentiary facility for less than 30 days. Update Admission H&P: No change in H&P PHYSICIAN SIGNATURE: The following attachments cannot be sent through Care Everywhere.Pneumothorax (Collapsed Lung) Discharge Instructions ([place])Subdural Hematoma Discharge Instructions ([place])documented in this encounter [facility] 08-06-2022 Note Attestation signed by Rolan Noriega [...] effusions on x-ray -Pulm toilet -NPO, IVF, HEEL VARNISHER evaluation -Monitor I/O's -AM labs -Ortho consultation for L DR/gretchen fx -SCD's, hold lovenox -PT/OT Total Care Time throughout the day today was >= 75 minutes (including chart/data review/analysis, care coordination, and modn-tp-prvm encounter), and was spent discussing/counseling the patient/family [...] Surgery Division of Trauma Department of Surgery [facility] Trauma H&P 08/05/2022 11:30 PM Trauma Attending: Dr. Noriega Level of Initial Activation: Direct Admit Upgraded: No To:N/A Mechanism of Injury: Fall Mechanical Mechanism of Arrival:Transfer from [facility] Chief Complaint: Left wrist pain History of Traumatic Injury: 86 y.o. female status post [facility]. The incident happened around 8AM [...] yes, which one? (more content not included)... [facility] Diagnosis Subdural hematoma (HCC) Subdural hemorrhage [facility] Diagnosis Subdural hematoma (HCC)- Primary Subdural hemorrhage documented in this encounter [facility] for referral (narrative)* Consultation (Routine) - Pending Review Specialty Diagnoses / Procedures Referred By Britany flores Referred To Contact Physician Refresh Technician / Trauma Surgery Diagnoses Intracranial hemorrhage (HCC) Acute pain due to trauma Closed fracture of left forearm, initial encounter Procedures DE OFFICE/OUTPATIENT [facility] MDM 60-74 MINUTES Donna Rowe PA-C [address] [place] [address] Donna Rowe PA-C [address] [place] [address] Referral ID Status Reason Start Date Expiration Date Visits Requested Visits Authorized [id number] Pending Review Specialty Services Required 08/11/2022 08/11/2023 1 1 [facility] Advance Directives No Advanced Directives Records FoundLatest [...] Documents on File Type Date Recorded Patient Manager Behavior Expl anation DNR (Do Not Resuscitate) 08/12/2022 11:36 AM Documents on File Type Date Recorded Patient Manager Behavior Expl anation DNR (Do Not Resuscitate) 08/12/2022 [...] head wo IV contrast Campos Garduno PA-C [address] [place] [address] Referral ID Status Reason Start Date Expiration Date Visits Re quested Visits Authorized [id number] Closed 09/15/2022 03/14/2023 1 1 Summary Purpose Family History No Family History Records Found Additional Source Comments Reason for Visit (unrecogniz ed section and content) Referral ID Status Reason Start Date Expiration Date Visits Re quested Visits Authorized [id number] 1 1 Specialty Diagnoses / Procedures Referred By Contac t Referred To Contact Radiology Diagnoses Subdural hematoma (HCC) Procedures CT head wo IV contrast Campos Garduno PA-C [address] [place] [address] Referral ID Status Reason Start Date Expiration Date Visits Re quested Visits Authorized [id number] Closed 09/15/2022 03/14/2023 1 1 Reason Comments Follow-up CT f/u Care Teams (unrecognized sec tion and content) Sawmill Supervisor Relationship Specialty Start Date End Date Deidre Borrero MD [address] [facility] [place] [phone] PCP - General Family Medicine 08/05/22 Sawmill Supervisor Relationship Specialty Start Date End Date Deidre Borrero MD [address] [place] [phone] PCP - General Family Medicine 08/05/22 Sawmill Supervisor Relationship Specialty Start Date End Date Deidre Borrero MD [address] [place] [phone] PCP - General Family Medicine 08/05/22 Scheduled [...] BE BASED ON THE PRIMARY CLINICAL RECORDS. [employer] provides no warranty or guarantee of the accuracy or completeness of information in this document.
--- NOTE | 2023-05-06 13:05 | HP.PCM.HOS_ITS ---
HPI - General General Date of Admission: 05/06/23 Date of Service: 05/06/23 Chief Complaint: Confused and disoriented for 4 days HPI Narrative BEN SALAMANCA, is a 87 F was brought to ED by EMS for not feeling well, confused and disoriented for 4 days. As per EMS note, her niece stated that patient was wandering in her home and she did not know where she is. Her niece lives in close neighborhood and checks her 4 times a day. During last Monday PCP visit probably her cough syrup which contains codeine was discontinued. Blood sugar was 105. In ED, patient vitals was normal, pulse irregular has chronic A-fib. Clinically suspicion of a stroke and CT scan shows left temporoparietal infarct possible subacute or chronic.Patient on aspirin 325 and atorvastatin for gram daily at home but unclear whether she is taking it because she is confused therefore aspirin and atorvastatin started in ED. Patient also has history of right rectal subdural hematoma which has resolved in the recent CT head. No evidence of acute bleed. [facility] Medical History Chronic a-fib Chronic renal disease Dysphagia Fall History of ectopic HTN (hypertension) Left ventricular hypertrophy Longstanding persistent atrial fibrillation Moderate pulmonary hypertension Peripheral vascular disease Pleural effusion Pulmonary hypertension Subarachnoid hemorrhage Subdural hematoma Tobacco dependence Wrist fracture, left Home Medications ascorbic acid (vitamin C) 500 mg capsule 500 mg PO DAILY supp 04/19/22 [History Last Taken Unknown] acetaminophen 325 mg capsule (Tylenol) 650 mg (2 x 325 mg) PO Q6H PRN fever or pain #100 caps 08/22/22 [Rx Last Taken Unknown] atorvastatin 80 mg tablet 80 mg PO QHS cholesterol #30 tabs 08/22/22 [Rx Last Taken Unknown] cholecalciferol (vitamin D3) 25 mcg (1,000 unit) capsule 25 mcg PO DAILY supp #30 caps 08/22/22 [Rx Last Taken Unknown] aspirin 325 mg tablet,delayed release 325 mg PO DAILY 08/26/22 [History Last Taken Unknown] empagliflozin 10 mg tablet (Jardiance) 10 mg PO DAILY 08/31/22 [History Last Taken Unknown] spironolactone 25 mg tablet 25 mg PO DAILY 08/31/22 [History Last Taken Unknown] lisinopril 5 mg tablet (Zestril) 2.5 mg (2 x 5 mg) PO DAILY bp #30 tabs 09/01/22 [Rx Last Taken Unknown] alendronate 35 mg tablet 35 mg PO FR 12/02/22 [History Last Taken Unknown] ywxejebcu-SP-iysuasozizjkj 1 tab PO ONCE PRN 12/02/22 [History Last Taken Unknown] carvedilol 25 mg tablet 25 mg PO BID #180 tabs 02/09/23 [Rx Last Taken Unknown] furosemide 40 mg tablet (Lasix) 40 mg PO DAILY 04/05/23 [History Last Taken Unknown] Allergy/AdvReac Type Severity Reaction Status Date / Time diphenhydramine AdvReac Intermediate Other Verified 05/06/23 09:39 [From Benadryl] Surgical History H/O: hysterectomy (~1972) History of cataract surgery (~1989) Social History household members: none and other details: she has been for 20 years. housing: other details: She lives in a trailer number of children: 1 current occupational status: retired pets and animals: Yes (2 cats) pets and animals: cat(s) Smoking Status: Unknown if ever smoked Tobacco: How many years used: 72 counseling given: provider counseling alcohol intake: current alcohol intake frequency: 0-2 drinks per day details: She drinks a small juice glass of wine, when she has it, 4-5 days per week. substance use type: does not use what type of physical activity do you participate in: walking ROS ROS Narrative Patient is confused and disoriented. When asked about burning micturition, she states he does not have it. 14 system ROS unobtainable as patient is confused and disoriented. Review of Systems ROS Unobtainable: due to encephalopathy and due to mental status Vital Signs Vital Signs Vital Signs: 05/06/23 09:33 05/06/23 11:33 05/06/23 12:23 Temperature 97.2 F L 98.4 F Temperature Source Temporal Temporal Pulse Rate 88 94 78 Respiratory Rate 15 16 16 Blood Pressure 124/77 H 106/89 H 113/78 Blood Pressure Mean 92 94 89 Pulse Ox 98 98 Oxygen Delivery Method Room Air Room Air 05/06/23 12:36 Temperature 97.6 F L Temperature Source Pulse Rate 98 Respiratory Rate 16 Blood Pressure 113/78 Blood Pressure Mean 89 Pulse Ox 99 Oxygen Delivery Method Weight Weight: 92 lb 13.034 oz Body Mass Index (BMI) 18.1 Physical Exam Narrative General: Confused, disoriented, looks blank. Looks obtunded. HEENT: Hard of hearing. Atraumatic, PERRLA, EOMI, Normocephalic Oral: Oral mucosa dry. No Gingival or Mucosal Lesions/ Ulcerations Neck: Supple, No JVD, Negative Carotid Bruits Lungs: Air entry diminished in bilateral lung bases. No crepitation/rhonchi Cardiovascular: Irregular rate and rhythm, Normal S1, Normal S2, No murmurs Abdomen: Bowel Sounds Present, Soft, Non Tender, Non-Distended : No renal angle tenderness. No suprapubic tenderness. Extremities: Bilateral 2+ pitting edema, Capillary Refill Less than 3 Seconds Skin: No rashes, No breakdown Musculoskeletal: No Tenderness to Palpation of Joints or Extremities ROM full and intact. Neurological: Confused, disoriented. Patient cannot tell her full name, age, month, year. She said her date of . Does not follow command. Psych/Mental Status: Flat affect. Confused Results Lab / Micro Data 05/06/23 10:41 05/06/23 10:41 Labs: Laboratory Results - last 24 hr 05/06/23 10:41: WBC 10.2, RBC 4.13 L, Hgb 11.8 L, Hct 37.8, MCV 91.5, MCH 28.6, MCHC 31.2 L, RDW Std Deviation 57.0 H, RDW Coeff of Jenny 16.8 H, Plt Count 336, MPV 9.8, Immature Gran % (Auto) 0.300, Neut % (Auto) 81.9 H, Lymph % (Auto) 9.1 L, Blanco % (Auto) 8.2, Eos % (Auto) 0.3, Baso % (Auto) 0.2, Absolute Neuts (auto) 8.3 H, Absolute Lymphs (auto) 0.93, Nucleated RBC % 0, Sodium 139, Potassium 3.9, Chloride 107, Carbon Dioxide 22.0, Anion Gap 10, BUN 26 H, Creatinine 1.76 H, Estim Creat Clear Calc 14.97, Est GFR (MDRD) Af Amer 35 L, Est GFR (MDRD) Non-Af 29 L, BUN/Creatinine Ratio 14.8, Glucose 98, Calcium 7.7 L, Total Bilirubin 0.60, AST 10 L, ALT 14, Alkaline Phosphatase 122 H, Troponin I High Sens 12, Total Protein 5.2 L, Albumin 1.9 L, Globulin 3.3, Albumin/Globulin Ratio 0.6 L, Ethyl Alcohol < 3.0 Rhythm Strip Rhythm Strip: A-fib Rate: 80 Ectopy: None Imagaing Radiology Impression Brain CT 05/06/23 10:06 IMPRESSION: 1. Left temporoparietal infarct which could be subacute or chronic. MRI of the brain is recommended if clinically indicated. 2. Mild chronic involutional changes of the brain. 3. Intracranial atherosclerotic vascular calcifications. Electronically Signed: Nic Roberts MD at 12:08 EST Reading Location ID and State: [facility] / [place] Tel , Service support , ADDENDUM: 05/06/23 1223 IMPRESSION: 1. Left temporoparietal infarct which could be subacute or chronic. MRI of the brain is recommended if clinically indicated. 2. Mild chronic involutional changes of the brain. 3. Intracranial atherosclerotic vascular calcifications. N.B. : The above Results were Read Back by Nic Roberts MD to Amor Haines MD, and understanding confirmed on 05/06/2023 12:17:01 (ET). Electronically Signed: Nic Roberts MD at 12:08 EST , Chest X-Ray 05/06/23 11:35 IMPRESSION: 1. Bilateral lower lungs infiltrates worse in the right side be due to pneumonia. 2. Moderate right pleural effusion increased since the previous exam. Electronically Signed: Nic Roberts MD at 12:13 EST Reading Location ID and State: [facility] / [place] Tel , Service support , Assessment & Plan Assessment/Plan (1) Acute encephalopathy: (2) Ischemic stroke: PLAN: Plan This is a 87-year-old female being admitted for confusion disoriented for 4 days. 1. Subacute/chronic left temporal parietal infarct: Patient is being admitted to PCU. And it is unclear whether patient took today's dose of aspirin or other medication but seems less likely as she is confused and disoriented lives alone but her niece lives close by neighborhood. Aspirin 81 mg 1 dose now and continue 325 mg her home dose and atorvastatin 80 mg daily. MRI brain and MRA head and neck without contrast ordered. PT, OT, speech therapy/swallow evaluation and management, nursing NIH stroke scale, BP and glucose monitoring and control as per stroke protocol. TSH, A1c fasting lipid profile tomorrow AM. 2D echo with bubble contrast study ordered 2. Acute encephalopathy exact etiology unclear possible may be due to stroke/metabolic: Will try to treat underlying condition. Orientation cues. Patient is also hard of hearing. 3. History of right rectal subdural hematoma which has resolved in the recent CT head. No evidence of acute bleed and CT head on admission. 4. Chronic heart failure with preserved ejection fraction: Patient has bilateral leg swelling. Not short of breath. Last 2D echo on May 16, 2022 EF of 55% Hold lisinopril but continue metoprolol aspirin and atorvastatin. 5. THOMAS: Patient creatinine is 1.76. Baseline about 0.9 last 1 April 28, 2023. Will give IV fluid normal saline. 6. Chronic A-fib: I do not think patient has chest pain. Twelve-lead EKG done in the ED reviewed. A-fib with PVC with aberrant conducted complexes, LAD, LVH with repolarization abnormality. Patient on verapamil 120 mg SR tablet, 2 tablets twice daily. Metoprolol 25 mg twice daily. 7. Chest x-ray infiltrate, right-sided pleural effusion, concern for pneumonia: Chest x-ray individually reviewed and shows bilateral lower lobes infiltrate worse on the right side. Moderate right pleural effusion. Patient also has cough observed in ED. Rapid flu COVID and RSV ordered. Pneumonia workup ordered. Empirically started on IV ceftriaxone. 8. History of left wrist fracture, fall and subdural hematoma from recent fall and was admitted in [facility] in July 2022 9. Dysphagia: Chronic. Speech therapy will evaluate 10. Severe protein-calorie malnutrition: Nutrition evaluation Ensure clear. 11. Other Chronic conditions * Hypertension: Hold lisinopril. * Pulmonary artery hypertension: Noted on echocardiogram. Unclear which type. Patient may benefit from a polysomnogram as outpatient. VTE prophylaxis: SCDs. CODE STATUS: Was addressed during the previous admission. Patient wishes to be DNR CC arrest with no intubation. This time patient is confused disoriented. Will keep DNRCC arrest with no intubation. Laboratory Results 05/06/23 10:41: WBC 10.2, RBC 4.13 L, Hgb 11.8 L, Hct 37.8, MCV 91.5, MCH 28.6, MCHC 31.2 L, RDW Std Deviation 57.0 H, RDW Coeff of Jenny 16.8 H, Plt Count 336, MPV 9.8, Immature Gran % (Auto) 0.300, Neut % (Auto) 81.9 H, Lymph % (Auto) 9.1 L, Blanco % (Auto) 8.2, Eos % (Auto) 0.3, Baso % (Auto) 0.2, Absolute Neuts (auto) 8.3 H, Absolute Lymphs (auto) 0.93, Nucleated RBC % 0, Sodium 139, Potassium 3.9, Chloride 107, Carbon Dioxide 22.0, Anion Gap 10, BUN 26 H, Creatinine 1.76 H, Estim Creat Clear Calc 14.97, Est GFR (MDRD) Af Amer 35 L, Est GFR (MDRD) Non-Af 29 L, BUN/Creatinine Ratio 14.8, Glucose 98, Calcium 7.7 L, Total Bilirubin 0.60, AST 10 L, ALT 14, Alkaline Phosphatase 122 H, Troponin I High Sens 12, Total Protein 5.2 L, Albumin 1.9 L, Globulin 3.3, Albumin/Globulin Ratio 0.6 L, Ethyl Alcohol < 3.0 05/06/23 10:44: Phosphorus 4.2, Magnesium 2.1, Total Bilirubin 0.60, Direct Bilirubin 0.26, AST 12 L, ALT 13, Alkaline Phosphatase 126 H, Total Protein 5.3 L, Albumin 1.9 L, Globulin 3.4, TSH 1.25 Clinical Impression(s) from Imaging Studies Brain CT 05/06/23 10:06 IMPRESSION: 1. Left temporoparietal infarct which could be subacute or chronic. MRI of the brain is recommended if clinically indicated. 2. Mild chronic involutional changes of the brain. 3. Intracranial atherosclerotic vascular calcifications. Chest X-Ray 05/06/23 11:35 IMPRESSION: 1. Bilateral lower lungs infiltrates worse in the right side be due to pneumonia. 2. Moderate right pleural effusion increased since the previous exam. Charges/Coding Visit Charges Inpatient E&M: 45669 Init Hosp L3 Procedures Hospitalists Procedures: 26723 Advncd Care Plan 30 Min
[2023-05-06 13:37] LABS: AST(SGOT) 12 U/L (15-37); Alanine Aminotransfer ALT/SGPT 13 U/L (13-56); Albumin, Serum 1.9 g/dL (3.2-5.0); Alkaline Phosphatase 126 U/L (45-117); Bilirubin, Direct 0.26 mg/dL (0.00-0.30); Globulin 3.4 g/dL (2.2-4.2); Magnesium 2.1 mg/dL (1.6-2.6); Phosphorus 4.2 mg/dL (2.5-4.9); Protein, Total 5.3 g/dL (6.4-8.2); Thyroid Stim Hormone (TSH) 1.25 uIU/mL (0.358-3.74)
[2023-05-06 14:06] LABS: Bacteria 0 SEEN /hpf (None Seen); Mucous, Urine 0 SEEN /hpf (<or=2+); Red Blood Cells-Urine 0 SEEN /hpf (0-5); Squamous Epithelial Cells - UA 0 SEEN /hpf (5-10)
[2023-05-06 14:07] LABS: Color, Urine Yellow (Yellow); Glucose, Dipstick Normal (Normal); Ketone-Dipstick 15 mg/dl (Negative); Leukocyte Esterase-Dipstick 500 /ul (Negative); Nitrite-Dipstick Negative (Negative); Occult Blood-Urine Negative /ul (Negative); Protein-Dipstick 15 mg/dl (Negative); Specific Gravity, Urine 1.025 (1.002-1.030); Urine Bilirubin Dipstick Negative (Negative); Urine Clarity Sl. Cloudy (Clear); Urine Urobilinogen 1 mg/dl (Normal)
[2023-05-06 14:18] LABS: Renal Epithelial Cells 0-5 SEEN /hpf (0-5); White Blood Cells 5-10 SEEN /hpf (0-5)
--- NOTE | 2023-05-06 14:26 | ECHOD_ITS ---
Reason For Study: TIA/CVA Procedure This was a 2D Doppler, Color Flow transthoracic echocardiogram. Exam performed portable in patient room. Left Ventricle Normal LV size. Left ventricular systolic function is normal. The estimated ejection fraction is 60 %. Unable to assess diastolic dysfunction due to arrhythmia. No regional wall motion abnormalities noted. Right Ventricle Normal RV size. Normal systolic function. Atria There is mild biatrial dilatation. There is moderate biatrial dilatation. Bubble contrast study negative for right to left interatrial shunt. Mitral Valve Mild diffuse mitral valve thickening. Moderate mitral annular calcification. There is no mitral valve stenosis. Mild-Moderate (1-2+) mitral valve insufficiency. Tricuspid Valve Normal tricuspid valve. Moderate (2+) tricuspid valve insufficiency. Right ventricular systolic pressure estimated to be 43 mmHg. Aortic Valve Trisinus/trileaflet aortic valve. Mild focal aortic valve calcification. There is no aortic stenosis. Trivial aortic valve insufficiency. Pulmonic Valve The pulmonic valve is not well visualized. Mild (1+) pulmonic valve insufficiency. Great Vessels Normal aortic root. Pericardium/Pleural No pericardial effusion. Moderate size left pleural effusion. Medication Performed a rapid injection of agitated mix of 9 cc saline and 1cc air to assess for atrial septal defect. MMode/2D Measurements & Calculations LVIDd: 3.3 cm IVSd: 0.91 cm Ao root diam: 2.7 cm LVIDs: 2.2 cm LVPWd: 0.92 cm RVDd: 3.5 cm FS: 34.2 % LAV(MOD-bp): 33.1 ml LVAd ap4: 15.5 cm2 LVAd ap2: 14.3 cm2 LAV(MOD-bp) Indexed: 23.6 ml/m2 LVLd ap4: 6.0 cm LVLd ap2: 6.1 cm LAV(MOD-sp2): 26.1 ml EDV(MOD-sp4): 33.9 ml EDV(MOD-sp2): 27.5 ml LAV(MOD-sp4): 39.8 ml EDV(sp4-el): 34.1 ml EDV(sp2-el): 28.3 ml LVAs ap4: 9.1 cm2 LVAs ap2: 7.8 cm2 LVLs ap4: 5.3 cm LVLs ap2: 5.5 cm ESV(MOD-sp4): 13.8 ml ESV(MOD-sp2): 9.5 ml ESV(sp4-el): 13.3 ml ESV(sp2-el): 9.4 ml EF(MOD-sp4): 59.3 % EF(MOD-sp2): 65.4 % EF(sp4-el): 61.0 % SV(MOD-sp4): 20.1 ml SV(MOD-sp2): 18.0 ml SV(sp4-el): 20.8 ml LA A4 area: 16.0 cm2 LA dimension(2D): 3.0 cm RA A4 area: 16.6 cm2 TAPSE: 2.0 cm Doppler Measurements & Calculations MV E max vijay: 110.6 cm/sec Lat Peak E' Vijay: 10.8 cm/sec Med Peak E' Vijay: 7.6 cm/sec E/E' lat: 10.2 E/E' med: 14.5 Ao V2 max: 103.0 cm/sec AI max vijay: 357.0 cm/sec LV V1 max: 91.4 cm/sec Ao max P.2 mmHg AI max P.0 mmHg LV V1 max P.3 mmHg AI dec slope: 208.5 cm/sec2 AI P1/2t: 501.5 msec PA V2 max: 90.7 cm/sec TR max vijay: 392.4 cm/sec TR max P.3 mmHg ECHO/Echo Complete Interpretation Summary The estimated ejection fraction is 60 %. Unable to assess diastolic dysfunction due to arrhythmia. There is mild biatrial dilatation. Mild diffuse mitral valve thickening. Moderate mitral annular calcification. Mild-Moderate (1-2+) mitral valve insufficiency. Moderate (2+) tricuspid valve insufficiency. Moderate size left pleural effusion. Bubble contrast study negative for right to left interatrial shunt. Ordering Physician: Jose Sarmiento Performed By: Laureen Wyatt RDCS
--- NOTE | 2023-05-06 14:26 | MRI_ITS ---
STUDY: MRA NECK WITHOUT CONTRAST REASON FOR EXAM: Female, 87 years old. STROKE, confusion, compare to CT TECHNIQUE: Source images were obtained, MIPs were performed. The study was performed unenhanced. COMPARISON: None. FINDINGS: RIGHT CAROTID ARTERIES: Normal right common carotid artery (CCA). Normal right common carotid bulb. Normal origin of the right internal carotid (ICA) artery without a hemodynamically significant stenosis. Normal visualized cervical portion of the right internal carotid artery. Normal origin of the right external carotid artery (ECA). LEFT CAROTID ARTERIES: Normal left common carotid artery (CCA). Normal left common carotid bulb. Normal origin of the left internal carotid (ICA) artery without a hemodynamically significant stenosis. Normal visualized cervical portion of the left internal carotid artery. Normal origin of the left external carotid artery (ECA). VERTEBRAL ARTERIES: Normal right vertebral artery. Nonvisualization left vertebral artery which may be occluded. MRI/MRA Neck without Contrast IMPRESSION: No carotid stenosis. Patent right vertebral artery. Suspect occluded left vertebral artery. Electronically Signed: Moisés Simpson MD at 19:41 EST ,
--- NOTE | 2023-05-06 14:26 | MRI_ITS ---
We are attempting to reach an attending provider to discuss findings. An addendum with communication details will be sent when the communication is complete. STUDY: MRI BRAIN WITHOUT CONTRAST REASON FOR EXAM: Female, 87 years old. STROKE ACUTE, confusion, compare to CT TECHNIQUE: Standardized multiplanar fat and water weighted pulse sequences were obtained. COMPARISON: None. FINDINGS: There is mild cerebral atrophy with widening of the extra-axial spaces and ventricular dilatation. There are a limited number of small white matter hyperintensities, distributed throughout the deep white matter tracts of the cerebral hemispheres, consistent with mild chronic white matter ischemic changes. Large area of hyperintensity involving the left temporal lobe and posterior left parietal lobe demonstrates restricted diffusion consistent with an acute left middle cerebral artery infarct. Normal T2* images of the brain without demonstrated susceptibility artifact. There is no demonstrated hemosiderin stain. Normal bilateral basal ganglia. Normal thalami. There is no extra-axial fluid accumulation. Normal flow voids within the major intracranial circulation suggesting patency by spin echo criteria. Normal sella turcica, pituitary gland, infundibular stalk, optic chiasm and hypothalamus. Normal tectal plate and pineal gland. Normal midbrain, amirah and medulla. Normal cerebellum. Normal basal cisterns. Normal bilateral temporal bones. Normal bilateral internal auditory canals. There are bilateral ocular lens implants with otherwise normal intraorbital contents. Normal visualized paranasal sinuses. Normal calvarium and skull base. Normal visualized soft tissue structures. Normal visualized upper cervical spine. MRI/Brain without Contrast IMPRESSION: Involutional changes of the brain, as described above. Large acute/subacute left middle cerebral artery infarct. Electronically Signed: Moisés Simpson MD at 19:36 EST ,
--- NOTE | 2023-05-06 14:26 | MRI_ITS ---
STUDY: MRA OF THE HEAD WITHOUT CONTRAST REASON FOR EXAM: Female, 87 years old. ACUTE STROKE, confusion, compare to CT TECHNIQUE: 3-D [id number] (TOF) imaging was performed with MIPs. The study was performed unenhanced. COMPARISON: None. FINDINGS: Normal bilateral petrous carotid arteries. Normal right cavernous carotid artery with a normal supraclinoid bifurcation. Normal left cavernous carotid artery with a normal supraclinoid bifurcation. Normal right A1 segments of the anterior cerebral artery. Normal left A1 segments of the anterior cerebral artery. Normal intact anterior communicating artery (ACOM). Normal bilateral A2 segments of the anterior cerebral arteries. Normal right M1 and M2 segments of the middle cerebral arteries, with a normal M1 bifurcation. Normal left M1 and M2 segments of the middle cerebral arteries, with a normal M1 bifurcation. Decreased number of peripheral branches of the left middle cerebral artery consistent with the infarct Normal right posterior communicating artery (PCOM). There is a persistent origin of the left posterior cerebral artery with absence of the P1 segment of the left posterior cerebral artery. Normal bilateral vertebral arteries. Normal basilar artery with a normal basilar bifurcation. The visualized bilateral superior cerebellar (SCA) arteries are normal. Normal bilateral P1, P2 and visualized P3 segments of the posterior cerebral arteries. There is no demonstrated aneurysm of the [place] of [place]. There is no major vessel occlusion or hemodynamically significant stenosis. There is no demonstrated abnormality of the visualized brain. MRI/MRA Head ONLY without Contrast IMPRESSION: Decreased number of peripheral branches of the left middle cerebral artery consistent with acute infarct but no large vessel occlusion. Electronically Signed: Moisés Simpson MD at 19:39 EST ,
[2023-05-06 14:29] LABS: Amphetamine Urine VISTA NEGATIVE (<1000 ng/mL); Barbiturate Urine VISTA NEGATIVE (< 200 ng/mL); Benzodiazepine Urine VISTA NEGATIVE (< 200 ng/mL); Cocaine Urine VISTA NEGATIVE (< 300 ng/mL); Ecstacy Urine VISTA NEGATIVE (< 500 ng/mL); Methadone Urine VISTA NEGATIVE (< 300 ng/mL); PCP Urine VISTA NEGATIVE (< 25 ng/mL); THC Urine VISTA NEGATIVE (< 50 ng/mL); Vista UDS pH Range 4
[2023-05-06] MEDS: 0.9% Normal Saline (1000mL) 1,000 ML 75 ML IV (15:18)
[2023-05-06] MEDS: Azithromycin 500 MG in Dextrose 5%-Water (250mL Bag) 250 ML 250 MG IV (15:56)
[2023-05-06] MEDS: Ceftriaxone 1 GM/50 ML BAG IV (15:56)
[2023-05-06] MEDS: Aspirin E.C. 325 MG Tablet PO (15:56)
[2023-05-06] MEDS: guaiFENesin 1,200 MG Tablet 1200 MG PO (16:30)
[2023-05-06 18:50] LABS: M R Staph aureus DNA By PCR Negative (Negative); Probe Check PASS; Specimen Processing Control PASS
[2023-05-06] MEDS: Ensure Plus High Protein 120 ML LIQUID PO (19:01)
[2023-05-06 19:21] LABS: Bedside Glucose 75 mg/dL (74-106)
[2023-05-06] MEDS: Ipratropium/Albuterol Sulfate 3 ML AMPUL.NEB INHALATION (20:37)
[2023-05-06] MEDS: Atorvastatin Calcium 80 MG Tablet PO (20:41)
[2023-05-06] MEDS: Carvedilol 25 MG Tablet PO (20:41)
--- NOTE | 2023-05-06 21:05 | PN.HOSP_ITS ---
Hospitalist Note I was informed by patient's nurse that radiology was trying to contact me about this patient's MRI read. I called radiology but the radiologist was not availab.e I reviewed MRI of the brain which showed a large acute/subacute left middle cerebral infarct. MRA head and neck showed decreased number of peripheral branches of hte left middle cerebral artery consistent /with acute infarct but no large vessel occlusion. Patient already on aspirin 325mg daily as well as high intensity statin. Will start on plavix 75mg daily. Neurology consulted, a wait recommendations.
[2023-05-07] VITALS (10 sets, daily range): BP systolic 102–134; BP diastolic 52–79; PULSE 78–93; RESP 16–18; TEMP 36.1–36.8; O2SAT 89–98; BMI 18.3; BMI 18.6
[2023-05-07 01:04] LABS: Bedside Glucose 98 mg/dL (74-106)
[2023-05-07] MEDS: 0.9% Normal Saline (1000mL) 1,000 ML 75 ML IV (05:42)
[2023-05-07 06:52] LABS: Absolute Lymphocyte Count 0.92 X10^3/uL (0.83-4.51); Absolute Neutrophil Count 8.8 X10^3/uL (2.0-7.7); Basophil# 0.03 X10^3/uL; Basophil% 0.3 % (0-1); Eosinophil# 0.11 X10^3/uL; Hematocrit 36.5 % (37-47); Hemoglobin 11.2 g/dL (12.0-15.0); Lymphocyte # 0.92 X10^3/ul (0.83-4.51); Lymphocyte % 8.7 % (19-41); Mean Corp Hgb Conc 30.7 g/dL (32-36); Mean Corpuscular Hgb 28.1 pg (27.0-32.0); Mean Corpuscular Volume 91.7 fL (81-99); Mean Platelet Vol. 10.3 fl (6.2-12.0); Monocyte# 0.72 X10^3/uL; Monocyte% 6.8 % (0-10); NRBC Flagged by Analyzer 0 % (0-5); Neutrophil # 8.81 X10^3/uL (2.7-7.7); Neutrophil % 82.8 % (47-70); Platelet Count 355 K/mm3 (150-450); RBC Distribution Width SD 57.6 fl (35.1-43.9); Red Blood Count 3.98 M/mm3 (4.2-5.4); White Blood Count 10.6 K/mm3 (4.4-11.0)
[2023-05-07] MEDS: Ipratropium/Albuterol Sulfate 3 ML AMPUL.NEB INHALATION (07:33)
--- NOTE | 2023-05-07 08:06 | PN.HOSP_ITS ---
Reason for Visit Reason for Visit: Diagnoses Encephalopathy, unspecified (05/06/23) Cerebral infarction, unspecified (05/06/23) Objective Data Objective Data Vital Signs: Vital Signs Temp Pulse Resp BP Pulse Ox O2 Del Method O2 Flow Rate 97.0 F L 90 18 124/52 H 93 Room Air 2 05/07/23 08:03 05/07/23 08:03 05/07/23 08:03 05/07/23 08:03 05/07/23 08:03 05/07/23 08:03 05/07/23 00:54 Oxygen Flow Rate (L/min) 2 Oxygen Delivery Method Room Air Weight: 95 lb 10.89 oz Body Mass Index (BMI) 18.6 Intake & Output: Intake and Output for Last 24 Hours 05/05/23 05/06/23 05/07/23 23:59 23:59 23:59 Intake Total 791.67 / 791.67 1000 / 1000 Balance 791.67 / 791.67 1000 / 1000 Lab / Micro Data 05/07/23 05:49 05/07/23 05:49 Labs: Laboratory Results - last 24 hr 05/06/23 10:41: WBC 10.2, RBC 4.13 L, Hgb 11.8 L, Hct 37.8, MCV 91.5, MCH 28.6, MCHC 31.2 L, RDW Std Deviation 57.0 H, RDW Coeff of Jenny 16.8 H, Plt Count 336, MPV 9.8, Immature Gran % (Auto) 0.300, Neut % (Auto) 81.9 H, Lymph % (Auto) 9.1 L, [place] % (Auto) 8.2, Eos % (Auto) 0.3, Baso % (Auto) 0.2, Absolute Neuts (auto) 8.3 H, Absolute Lymphs (auto) 0.93, Nucleated RBC % 0, Sodium 139, Potassium 3.9, Chloride 107, Carbon Dioxide 22.0, Anion Gap 10, BUN 26 H, Creatinine 1.76 H, Estim Creat Clear Calc 14.97, Est GFR (MDRD) Af Amer 35 L, Est GFR (MDRD) Non-Af 29 L, BUN/Creatinine Ratio 14.8, Glucose 98, Calcium 7.7 L, Total Bilirubin 0.60, AST 10 L, ALT 14, Alkaline Phosphatase 122 H, Troponin I High Sens 12, Total Protein 5.2 L, Albumin 1.9 L, Globulin 3.3, Albumin/Globulin Ratio 0.6 L, Ethyl Alcohol < 3.0 05/06/23 10:44: Phosphorus 4.2, Magnesium 2.1, Total Bilirubin 0.60, Direct Bilirubin 0.26, AST 12 L, ALT 13, Alkaline Phosphatase 126 H, Total Protein 5.3 L, Albumin 1.9 L, Globulin 3.4, TSH 1.25 05/06/23 14:01: Urine Color Yellow, Urine Clarity Sl. Cloudy, Urine pH 5.0, Ur Specific May 1.025, Urine Protein 15 H, Urine Glucose (UA) Normal, Urine Ketones 15 H, Urine Occult Blood Negative, Urine Nitrite Negative, Urine Bilirubin Negative, Urine Urobilinogen 1 H, Ur Leukocyte Esterase 500 H, Urine RBC 0 SEEN, Urine WBC 5-10 SEEN, Ur Squamous Epith Cells 0 SEEN, Ur Renal Epithelial Cell 0-5 SEEN, Urine Bacteria 0 SEEN, Urine Mucus 0 SEEN, Urine Opiates Screen POSITIVE H, Urine Methadone Screen NEGATIVE, Ur Barbiturates Screen NEGATIVE, Ur Phencyclidine Scrn NEGATIVE, Ur Amphetamines Screen NEGATIVE, MDMA (Ecstasy) Screen NEGATIVE, U Benzodiazepines Scrn NEGATIVE, Urine Cocaine Screen NEGATIVE, U Cannabinoids Screen NEGATIVE, Ur Drug Screen Comment 05/06/23 16:00: MRSA (PCR) Negative 05/06/23 19:01: POC Glucose 75 05/07/23 00:46: POC Glucose 98 05/07/23 05:49: WBC 10.6, RBC 3.98 L, Hgb 11.2 L, Hct 36.5 L, MCV 91.7, MCH 28.1, MCHC 30.7 L, RDW Std Deviation 57.6 H, RDW Coeff of Jenny 17.0 H, Plt Count 355, MPV 10.3, Immature Gran % (Auto) 0.400, Neut % (Auto) 82.8 H, Lymph % (Auto) 8.7 L, [place] % (Auto) 6.8, Eos % (Auto) 1.0, Baso % (Auto) 0.3, Absolute Neuts (auto) 8.8 H, Absolute Lymphs (auto) 0.92, Nucleated RBC % 0 Micro: Microbiology 05/06/23 20:44 Mucosa - Nasopharyngeal SARS-CoV-2, Influenza & RSV (PCR) - Final Radiography Diagnostic Testing: Radiology Impression Brain CT 05/06/23 10:06 IMPRESSION: 1. Left temporoparietal infarct which could be subacute or chronic. MRI of the brain is recommended if clinically indicated. 2. Mild chronic involutional changes of the brain. 3. Intracranial atherosclerotic vascular calcifications. Electronically Signed: Nic Roberts MD at 12:08 EST , ADDENDUM: 05/06/23 1223 IMPRESSION: 1. Left temporoparietal infarct which could be subacute or chronic. MRI of the brain is recommended if clinically indicated. 2. Mild chronic involutional changes of the brain. 3. Intracranial atherosclerotic vascular calcifications. N.B. : The above Results were Read Back by Nic Roberts MD to Amor Haines MD, and understanding confirmed on 05/06/2023 12:17:01 (ET). Electronically Signed: Nic Roberts MD at 12:08 EST , Chest X-Ray 05/06/23 11:35 IMPRESSION: 1. Bilateral lower lungs infiltrates worse in the right side be due to pneumonia. 2. Moderate right pleural effusion increased since the previous exam. Electronically Signed: Nic Roberts MD at 12:13 EST , Brain MRI 05/06/23 14:26 IMPRESSION: Involutional changes of the brain, as described above. Large acute/subacute left middle cerebral artery infarct. Electronically Signed: Moisés Simpson MD at 19:36 EST , ADDENDUM: 05/06/232104 IMPRESSION: Involutional changes of the brain, as described above. Large acute/subacute left middle cerebral artery infarct. N.B. : Sandy Ignacio MD, confirmed on 05/06/2023 20:58:18 (ET) that the referring physician received the results and does not require a verbal communication. Electronically Signed: Moisés Simpson MD at 19:36 EST Reading Location ID and State: [id number] / Sleep Number Tel , Service support , Head MRA 05/06/23 14:26 IMPRESSION: Decreased number of peripheral branches of the left middle cerebral artery consistent with acute infarct but no large vessel occlusion. Electronically Signed: Moisés Simpson MD at 19:39 EST Reading Location ID and State: [id number] / Sleep Number Tel , Service support , Neck MRA 05/06/23 14:26 IMPRESSION: No carotid stenosis. Patent right vertebral artery. Suspect occluded left vertebral artery. Electronically Signed: Moisés Simpson MD at 19:41 EST Reading Location ID and State: [id number] / Sleep Number Tel , Service support , Rhythm Strip Rhythm Strip: A-fib Rate: 80 Ectopy: None Physical Exam Narrative Seen and examined. Patient does not look confused but she is talkative. She is oriented. She feels like going to bowel movement. General: Warnicke's APHASIA. oriented x 3 awake and talkative. HEENT: Hard of hearing. Atraumatic, PERRLA, EOMI, Normocephalic Oral: Oral mucosa moist No Gingival or Mucosal Lesions/ Ulcerations Neck: Supple, No JVD, Negative Carotid Bruits Lungs: Air entry diminished in bilateral lung bases. No crepitation/rhonchi Cardiovascular: Irregular rate and rhythm, Normal S1, Normal S2, No murmurs Abdomen: Bowel Sounds Present, Soft, Non Tender, Non-Distended : No renal angle tenderness. No suprapubic tenderness. Extremities: Bilateral 2+ pitting edema, Capillary Refill Less than 3 Seconds Skin: No rashes, No breakdown Musculoskeletal: No Tenderness to Palpation of Joints or Extremities ROM full and intact. Neurological: oriented x3, wernicke's aphasia. Does not follow command. Psych/Mental Status: Flat affect. Assessment & Plan Assessment/Plan (1) Acute encephalopathy: (2) Ischemic stroke: PLAN: Plan This is a 87-year-old female being admitted for confusion disoriented for 4 days. 1. Subacute/chronic left temporal parietal infarct: Patient is being admitted to PCU. And it is unclear whether patient took today's dose of aspirin or other medication but seems less likely as she is confused and disoriented lives alone but her niece lives close by neighborhood. Aspirin 81 mg 1 dose now and continue 325 mg her home dose and atorvastatin 80 mg daily. MRI brain and MRA head and neck without contrast ordered. PT, OT, speech therapy/swallow evaluation and management, nursing NIH stroke scale, BP and glucose monitoring and control as per stroke protocol. TSH, A1c fasting lipid profile tomorrow AM. 2D echo with bubble contrast study ordered 05/07: Patient is talkative, burnings aphasia but does not know what she means. She was talking on the phone. MRI brain shows a large left MCA infarct similar to the CT finding. MRI brain shows decreased number of peripheral branches of the left middle cerebral artery consistent with acute infarct but no large vessel occlusion. MRI brain shows suspected left vertebral artery occlusion but carotid arteries are patent. Nighttime hospitalist discussed with [facility] neurologist and recommended aspirin 325 mg to decrease to 81 mg daily. Start blood thinner after 7 days of acute stroke, start Eliquis 2.5 mg bid from 05/13/2023. Discontinue baby aspirin when starts Eliquis so that she is not on both baby aspirin and Eliquis. Continue high intensity statin statin. No need for monitoring coordinator. [facility] Neurologist signed off but call back if new finding on ECHO like thrombus or any change in clinical status. 2. Acute encephalopathy exact etiology unclear possible may be due to stroke/metabolic: Will try to treat underlying condition. Orientation cues. Patient is also hard of hearing. 05/07: Acute encephalopathy resolved. Most likely it was due to stroke. Patient still aphasic mainly Warnicke's aphasia. 3. History of right rectal subdural hematoma which has resolved in the recent CT head. No evidence of acute bleed and CT head on admission. 4. Chronic heart failure with preserved ejection fraction: Patient has bilateral leg swelling. Not short of breath. Last 2D echo on May 16, 2022 EF of 55% Hold lisinopril but continue metoprolol aspirin and atorvastatin. 5. THOMAS: Patient creatinine is 1.76. Baseline about 0.9 last April 28, 2023. Will give IV fluid normal saline. 05/07 continue IV fluid. Creatinine improving 1.66. Will consult nephrology. 6. Chronic A-fib: I do not think patient has chest pain. Twelve-lead EKG done in the ED reviewed. A-fib with PVC with aberrant conducted complexes, LAD, LVH with repolarization abnormality. Patient on verapamil 120 mg SR tablet, 2 tablets twice daily. Metoprolol 25 mg twice daily. 7. Chest x-ray infiltrate, right-sided pleural effusion, concern for pneumonia: Chest x-ray individually reviewed and shows bilateral lower lobes infiltrate worse on the right side. Moderate right pleural effusion. Patient also has cough observed in ED. Rapid flu COVID and RSV ordered. Pneumonia workup ordered. Empirically started on IV ceftriaxone. 8. History of left wrist fracture, fall and subdural hematoma from recent fall and was admitted in [facility] in July 2022 9. Dysphagia: Chronic. Speech therapy will evaluate 10. Severe protein-calorie malnutrition: Nutrition evaluation Ensure clear. 11. Other Chronic conditions * Hypertension: Hold lisinopril. * Pulmonary artery hypertension: Noted on echocardiogram. Unclear which type. Patient may benefit from a polysomnogram as outpatient. VTE prophylaxis: SCDs. CODE STATUS: Was addressed during the previous admission. Patient wishes to be DNR CC arrest with no intubation. This time patient is confused disoriented. Will keep DNRCC arrest with no intubation. Total time of the visit including total time spent in counseling or coordination of care, (more than 50% of the total time, spent in obtaining medical information from nurses and other ancillary care providers,explaining to the patient about labs, imaging, diagnosis and management of active complex medical conditions), discussion with [facility] neurologist regarding a stroke, review of medication, other complex condition including THOMAS, review of labs and imaging is 40 minutes. Clinical Impression(s) from Imaging Studies Brain CT 05/06/23 10:06 IMPRESSION: 1. Left temporoparietal infarct which could be subacute or chronic. MRI of the brain is recommended if clinically indicated. 2. Mild chronic involutional changes of the brain. 3. Intracranial atherosclerotic vascular calcifications. Chest X-Ray 05/06/23 11:35 IMPRESSION: 1. Bilateral lower lungs infiltrates worse in the right side be due to pneumonia. 2. Moderate right pleural effusion increased since the previous exam. Electronically Signed: Nic Roberts MD at 12:13 EST , Brain MRI 05/06/23 14:26 IMPRESSION: Involutional changes of the brain, as described above. Large acute/subacute left middle cerebral artery infarct. Head MRA 05/06/23 14:26 IMPRESSION: Decreased number of peripheral branches of the left middle cerebral artery consistent with acute infarct but no large vessel occlusion. Neck MRA 05/06/23 14:26 IMPRESSION: No carotid stenosis. Patent right vertebral artery. Suspect occluded left vertebral artery. Electronically Signed: Moisés Simpson MD at 19:41 EST , Laboratory Results 05/06/23 10:41: WBC 10.2, RBC 4.13 L, Hgb 11.8 L, Hct 37.8, MCV 91.5, MCH 28.6, MCHC 31.2 L, RDW Std Deviation 57.0 H, RDW Coeff of Jenny 16.8 H, Plt Count 336, MPV 9.8, Immature Gran % (Auto) 0.300, Neut % (Auto) 81.9 H, Lymph % (Auto) 9.1 L, [place] % (Auto) 8.2, Eos % (Auto) 0.3, Baso % (Auto) 0.2, Absolute Neuts (auto) 8.3 H, Absolute Lymphs (auto) 0.93, Nucleated RBC % 0, Sodium 139, Potassium 3.9, Chloride 107, Carbon Dioxide 22.0, Anion Gap 10, BUN 26 H, Creatinine 1.76 H, Estim Creat Clear Calc 14.97, Est GFR (MDRD) Af Amer 35 L, Est GFR (MDRD) Non-Af 29 L, BUN/Creatinine Ratio 14.8, Glucose 98, Calcium 7.7 L, Total Bilirubin 0.60, AST 10 L, ALT 14, Alkaline Phosphatase 122 H, Troponin I High Sens 12, Total Protein 5.2 L, Albumin 1.9 L, Globulin 3.3, Albumin/Globulin Ratio 0.6 L, Ethyl Alcohol < 3.0 05/06/23 10:44: Phosphorus 4.2, Magnesium 2.1, Total Bilirubin 0.60, Direct Bilirubin 0.26, AST 12 L, ALT 13, Alkaline Phosphatase 126 H, Total Protein 5.3 L, Albumin 1.9 L, Globulin 3.4, TSH 1.25 Clinical Impression(s) from Imaging Studies Brain CT 05/06/23 10:06 IMPRESSION: 1. Left temporoparietal infarct which could be subacute or chronic. MRI of the brain is recommended if clinically indicated. 2. Mild chronic involutional changes of the brain. 3. Intracranial atherosclerotic vascular calcifications. Chest X-Ray 05/06/23 11:35 IMPRESSION: 1. Bilateral lower lungs infiltrates worse in the right side be due to pneumonia. 2. Moderate right pleural effusion increased since the previous exam. Charges/Coding Visit Charges Inpatient E&M: 10944 Subs Hosp L3
[2023-05-07] MEDS: guaiFENesin 1,200 MG Tablet 1200 MG PO ×2 (08:25→20:48)
[2023-05-07] MEDS: Empagliflozin 10 MG Tablet PO (08:25)
[2023-05-07] MEDS: Cholecalciferol (VIT D3) 25 MCG TABLET (1,000 UNITS) PO (08:26)
[2023-05-07] MEDS: Ceftriaxone 1 GM/50 ML BAG IV (08:31)
[2023-05-07] MEDS: Ascorbic Acid 500 MG Tablet PO (08:31)
[2023-05-07] MEDS: Aspirin 81 MG TAB.CHEW PO (08:31)
[2023-05-07] MEDS: Azithromycin 500 MG in Dextrose 5%-Water (250mL Bag) 250 ML 250 MG IV (08:32)
[2023-05-07 10:10] LABS: Anion Gap 10 (5-15); BUN 24 mg/dL (7-18); BUN/Creat Ratio 14.5 RATIO (10-20); Calcium,Total 7.5 mg/dL (8.5-10.1); Chloride 106 mmol/L (98-107); Cholesterol 83 mg/dL (200); Creatinine, Serum 1.66 mg/dL (0.55-1.02); EST Glomerular Filtration Rate 31 mL/min (>60); Est Glom Filt Rate - Afr Amer 38 mL/min (>60); Estimated Creatinine Clearance 16.36 ml/min; Glucose 84 mg/dL (74-106); High Density Lipoprotein 26 mg/dL; Potassium 3.2 mmol/L (3.5-5.1); Sodium Level 139 mmol/L (136-145); Triglycerides 114 mg/dL; Very Low Density Lipoprotein 23 mg/dL (5-40)
[2023-05-07 11:23] LABS: Hemoglobin A1c 5.4 % (3.8-5.6)
[2023-05-07] MEDS: Ensure Plus High Protein 120 ML LIQUID PO ×2 (13:28→17:46)
--- NOTE | 2023-05-07 13:51 | STROKE.CONS ---
Assessment and Plan: Stroke Assessment/Plan 87 yo F w PMH of afib not on AC, CKD, HTN, tobacco abuse, CHFpEF, PVD, fall with traumatic SDH in 2022 who presented with 3-4 days of confusion. Her exam is notable for a fluent aphasia. Her MRI and CT demonstrate a moderate-large left temporal-parietal infarct. The etiology is cardioembolic from untreated atrial fibrillation. As her SDH was was traumatic and occured 9 months ago with complete resolution on imaging, she is a candidate for therapeutic anticoagulation for secondary stroke prevention. Due to the size of the infarct I would wait a total of 10 days from her LKW until starting her on eliquis (start date of 05/13). Due to her age, body weight and renal function, she will require the reduced dosage of 2.5 bid. -Continue ASA 81 for now. Start Eliquis in 1 weeks (05/13) at 2.5 bid and stop ASA at that time. -continue home atrova 80 -BP goal is normotension -provide smoking cessation counseling to family -LDL 34/HbA1c 5.4 -fu TTE results to ensure no thrombus. If thrombus detected please contact neurology to discuss potential earlier AC restart plan -no significant stenosis on vessel imaging -PT/OT/SHIPFITTER APPRENTICE -fu with neurology in 4-6 week, HPI Consult Data Date of Consult: 05/07/23 HPI Narrative HPI Narrative: 87yo F w PMH of afib not on AC, CKD, HTN, tobacco abuse, CHFpEF, PVD, mechanical fall with traumatic SDH/SAH in July 2022 who was admitted on 05/06 for 3-4 days of confusion and disorientation. Per documentation, the niece stated that the patient was wandering around her home and did not know where she was. The patient is currently unable to provide a history due to aphasia. Per nursing, the niece had stated the patient had 3-4 days of confusion and thought it was due to codeine in cough syrup. When the confusion persisted, they brought her to the ED. In the ED a L temporal-parietal subacute infarct was identified and the patient was admitted. Of note, the patient had fall in July 2022 after tripping over carpet with head strike.?She was found to have a R SDH without shift and focal SAH. She did not require any surgical intervention and was treated conservatively. She has only been on ASA for her afib since then. Her CHADSVASC prior to this admission was 6 and is now 8. [facility] Medical History Chronic a-fib Chronic renal disease Dysphagia Fall History of ectopic HTN (hypertension) Left ventricular hypertrophy Longstanding persistent atrial fibrillation Moderate pulmonary hypertension Peripheral vascular disease Pleural effusion Pulmonary hypertension Subarachnoid hemorrhage Subdural hematoma Tobacco dependence Wrist fracture, left Home Medications ascorbic acid (vitamin C) 500 mg capsule 500 mg PO DAILY supp 04/19/22 [History Last Taken Unknown] atorvastatin 80 mg tablet 80 mg PO QHS cholesterol #30 tabs 08/22/22 [Rx Last Taken Unknown] cholecalciferol (vitamin D3) 25 mcg (1,000 unit) capsule 25 mcg PO DAILY supp #30 caps 08/22/22 [Rx Last Taken Unknown] aspirin 325 mg tablet,delayed release 325 mg PO QHS anticoag 08/26/22 [History Last Taken Unknown] empagliflozin 10 mg tablet (Jardiance) 10 mg PO DAILY diabetes 08/31/22 [History Last Taken Unknown] spironolactone 25 mg tablet 25 mg PO DAILY bp 08/31/22 [History Last Taken Unknown] lisinopril 5 mg tablet (Zestril) 2.5 mg (1/2 x 5 mg) PO DAILY bp #30 tabs 09/01/22 [Rx Last Taken Unknown] alendronate 35 mg tablet 35 mg PO FR osteoporosis 12/02/22 [History Last Taken Unknown] xbylcehdk-JZ-bzrilicppcfwn 1 tab PO ONCE PRN pain 12/02/22 [History Last Taken Unknown] carvedilol 25 mg tablet 25 mg PO BID #180 tabs 02/09/23 [Rx Last Taken Unknown] furosemide 40 mg tablet (Lasix) 20 mg PO BID water pill 04/05/23 [History Last Taken Unknown] acetaminophen 325 mg capsule (Tylenol) 325 mg PO Q6H PRN fever or pain 05/06/23 [History Last Taken Unknown] donepezil 5 mg tablet 5 mg PO QHS memory 05/06/23 [History Last Taken Unknown] echinacea 400 mg capsule 400 mg PO DAILY dietary supplement 05/06/23 [History Last Taken Unknown] olopatadine 0.2 % eye drops (Pataday Once Daily Relief) 1 drp EACH EYE DAILY itchy eyes 05/06/23 [History Last Taken Unknown] Allergy/AdvReac Type Severity Reaction Status Date / Time diphenhydramine AdvReac Intermediate Other Verified 05/06/23 09:39 [From Benadryl] Surgical History H/O: hysterectomy (~1972) History of cataract surgery (~1989) Social History household members: none and other details: she has been for 20 years. housing: other details: She lives in a trailer number of children: 1 current occupational status: retired pets and animals: Yes (2 cats) pets and animals: cat(s) Smoking Status: Light Smoker (<10/day) Tobacco: How many years used: 72 counseling given: provider counseling alcohol intake: current alcohol intake frequency: 0-2 drinks per day details: She drinks a small juice glass of wine, when she has it, 4-5 days per week. substance use type: does not use what type of physical activity do you participate in: walking Vital Signs Vital Signs Vital Signs: 05/06/23 15:00 05/06/23 15:34 05/06/23 15:25 Temperature 97.9 F Temperature Source Temporal Pulse Rate 89 Pulse Strength Respiratory Rate 18 Respiratory Effort Normal Non-Labored Respiratory Depth Normal Respiratory Pattern Normal Blood Pressure 120/86 H Blood Pressure Mean 97 Blood Pressure Source Monitor Blood Pressure Position Semi-Fowlers Blood Pressure Location Right Arm Pulse Ox 94 Oxygen Delivery Method Room Air Room Air Room Air Oxygen Flow Rate (L/min) 05/06/23 20:30 05/06/23 20:56 05/06/23 20:51 Temperature 98.1 F Temperature Source Oral Pulse Rate 80 Pulse Strength Respiratory Rate 18 Respiratory Effort Normal Non-Labored Respiratory Depth Normal Respiratory Pattern Normal Blood Pressure 108/61 Blood Pressure Mean 76 Blood Pressure Source Blood Pressure Position Blood Pressure Location Pulse Ox 98 94 Oxygen Delivery Method Room Air Room Air Room Air Oxygen Flow Rate (L/min) 05/06/23 20:50 05/07/23 00:30 05/07/23 00:54 Temperature 98.2 F Temperature Source Oral Pulse Rate 74 79 Pulse Strength Respiratory Rate 18 18 Respiratory Effort Normal Non-Labored Respiratory Depth Normal Respiratory Pattern Normal Blood Pressure 102/52 L Blood Pressure Mean 68 Blood Pressure Source Blood Pressure Position Blood Pressure Location Pulse Ox 97 Oxygen Delivery Method Nasal Cannula Nasal Cannula Oxygen Flow Rate (L/min) 2 2 05/07/23 00:28 05/07/23 04:30 05/06/23 18:30 Temperature 97.6 F L 97.1 F L Temperature Source Oral Temporal Pulse Rate 93 80 Pulse Strength Respiratory Rate 16 18 Respiratory Effort Respiratory Depth Respiratory Pattern Blood Pressure 111/54 L 118/85 H Blood Pressure Mean 73 96 Blood Pressure Source Monitor Blood Pressure Position Semi-Fowlers Blood Pressure Location Right Arm Pulse Ox 89 93 94 Oxygen Delivery Method Room Air Room Air Room Air Oxygen Flow Rate (L/min) 05/07/23 07:54 05/07/23 07:25 05/07/23 08:03 Temperature 97.0 F L Temperature Source Temporal Pulse Rate 78 90 Pulse Strength Respiratory Rate 17 18 Respiratory Effort Respiratory Depth Respiratory Pattern Normal Blood Pressure 124/52 H Blood Pressure Mean 76 Blood Pressure Source Monitor Blood Pressure Position Semi-Fowlers Blood Pressure Location Right Arm Pulse Ox 98 93 Oxygen Delivery Method Room Air Room Air Oxygen Flow Rate (L/min) 05/07/23 08:12 05/07/23 08:14 05/07/23 11:46 Temperature 97.0 F L Temperature Source Temporal Pulse Rate 80 Pulse Strength Normal (2+) Respiratory Rate 18 Respiratory Effort Normal Non-Labored Respiratory Depth Normal Respiratory Pattern Normal Blood Pressure 117/71 Blood Pressure Mean 86 Blood Pressure Source Monitor Blood Pressure Position Semi-Fowlers Blood Pressure Location Right Arm Pulse Ox 94 Oxygen Delivery Method Room Air Room Air Oxygen Flow Rate (L/min) Weight Weight: 43.4 kg Body Mass Index (BMI) 18.6 Physical Exam Narrative MS- Awake, alert, fluent aphasia, able to perform high frequency naming but not low frequency, notable semantic paraphasic errors and neologism, unable to following commands due to impaired comprehension, no burak-inattention, unable to read CN- no clear visual field deficit although limited by aphasia, EOMI, no gaze, no facial droop M- Antigravity in bilateral UE and LE without drift. No pronator drift. S- Responds to LT in all extremities. No obvious extinction but difficulty to test due to aphasia C- no gross appendicular ? Medical Records Data Medical Nutrition Assessment Dietitian: Malnutrition Criteria Met Start: 05/07/23 13:39 Freq: Status: Active Protocol: Document 05/07/23 13:39 RMA (Rec: 05/07/23 13:39 RMA [id number]) Nutrition Malnutrition Evidence of Malnutrition Exists Yes Malnutrition (moderate): Chronic Evidenced By Suboptimal Energy Intake ( Moderate),Physical Changes ( Severe) Clinical Problem Chronic Disease or Condition Related Malnutrition Etiology Moderate to Severe protein- calorie malnutrition in the context of acute on chronic disease related to inadequate oral/energy intake and increased energy expenditure Signs/Symptoms as evidenced by PO meeting less than 75% estimated nutrition needs for repletion, BMI 18.7, severe muscle wasting/fat depletion in clavicle, orbitals, face, arms , legs Status Active Problem Recommendation Dietitian Recommendations/Changes Given low BMI and signs/ symptoms of malnutrition, will liberalize diet to regular/no added salt. Consistency/texture adjustments as needed per SHIPFITTER APPRENTICE. Will continue 120mL ensure plus high protein 4 times per day w/ medpass. Will add 240mL ensure clear with breakfast and magic cup w / lunch and dinner as tolerated. Consider enteral nutrition support if PO established inadequate/weight declines. Lab / Micro Data 05/07/23 05:49 05/07/23 05:49 Labs: Laboratory Results - last 24 hr 05/06/23 14:01: Urine Color Yellow, Urine Clarity Sl. Cloudy, Urine pH 5.0, Ur Specific [place] 1.025, Urine Protein 15 H, Urine Glucose (UA) Normal, Urine Ketones 15 H, Urine Occult Blood Negative, Urine Nitrite Negative, Urine Bilirubin Negative, Urine Urobilinogen 1 H, Ur Leukocyte Esterase 500 H, Urine RBC 0 SEEN, Urine WBC 5-10 SEEN, Ur Squamous Epith Cells 0 SEEN, Ur Renal Epithelial Cell 0-5 SEEN, Urine Bacteria 0 SEEN, Urine Mucus 0 SEEN, Urine Opiates Screen POSITIVE H, Urine Methadone Screen NEGATIVE, Ur Barbiturates Screen NEGATIVE, Ur Phencyclidine Scrn NEGATIVE, Ur Amphetamines Screen NEGATIVE, MDMA (Ecstasy) Screen NEGATIVE, U Benzodiazepines Scrn NEGATIVE, Urine Cocaine Screen NEGATIVE, U Cannabinoids Screen NEGATIVE, Ur Drug Screen Comment 05/06/23 16:00: MRSA (PCR) Negative 05/06/23 19:01: POC Glucose 75 05/07/23 00:46: POC Glucose 98 05/07/23 05:49: WBC 10.6, RBC 3.98 L, Hgb 11.2 L, Hct 36.5 L, MCV 91.7, MCH 28.1, MCHC 30.7 L, RDW Std Deviation 57.6 H, RDW Coeff of Jenny 17.0 H, Plt Count 355, MPV 10.3, Immature Gran % (Auto) 0.400, Neut % (Auto) 82.8 H, Lymph % (Auto) 8.7 L, [place] % (Auto) 6.8, Eos % (Auto) 1.0, Baso % (Auto) 0.3, Absolute Neuts (auto) 8.8 H, Absolute Lymphs (auto) 0.92, Nucleated RBC % 0, Sodium 139, Potassium 3.2 L, Chloride 106, Carbon Dioxide 23.0, Anion Gap 10, BUN 24 H, Creatinine 1.66 H, Estim Creat Clear Calc 16.36, Est GFR (MDRD) Af Amer 38 L, Est GFR (MDRD) Non-Af 31 L, BUN/Creatinine Ratio 14.5, Glucose 84, Hemoglobin A1c 5.4, Calcium 7.5 L, Triglycerides 114, Cholesterol 83, LDL Cholesterol 34, VLDL Cholesterol 23, HDL Cholesterol 26 L Micro: Microbiology 05/06/23 20:44 Mucosa - Nasopharyngeal SARS-CoV-2, Influenza & RSV (PCR) - Final Rhythm Strip Rhythm Strip: A-fib Rate: 80 Ectopy: None Imagaing Radiology Impression Brain MRI 05/06/23 14:26 IMPRESSION: Involutional changes of the brain, as described above. Large acute/subacute left middle cerebral artery infarct. Electronically Signed: Moisés Simpson MD at 19:36 EST , ADDENDUM: 05/06/232104 IMPRESSION: Involutional changes of the brain, as described above. Large acute/subacute left middle cerebral artery infarct. N.B. : Sandy Ignacio MD, confirmed on 05/06/2023 20:58:18 (ET) that the referring physician received the results and does not require a verbal communication. Electronically Signed: Moisés Simpson MD at 19:36 EST , Head MRA 05/06/23 14:26 IMPRESSION: Decreased number of peripheral branches of the left middle cerebral artery consistent with acute infarct but no large vessel occlusion. Electronically Signed: Moisés Simpson MD at 19:39 EST , Neck MRA 05/06/23 14:26 IMPRESSION: No carotid stenosis. Patent right vertebral artery. Suspect occluded left vertebral artery. Electronically Signed: Moisés Simpson MD at 19:41 EST Reading Location ID and State: [id number] / [employer] Tel , Service support , Active Medications Active Medications Active Medications: Current Medications Generic Name Dose Route Start Last Admin Trade Name Freq PRN Reason Stop Dose Admin Acetaminophen 650 mg 05/06/23 14:26 Acetaminophen 325 Mg Tablet PO Q4H PRN PRN Pain 1-10 Or Fever>99.6 Albuterol/Ipratropium 3 ml 05/06/23 14:26 05/07/23 07:33 Ipratropium/Albuterol Sulfate 3 Ml Ampul.Neb INHALATION 3 ml Q6HWA.RT PRN Administration sob Ascorbic Acid 500 mg 05/07/23 10:00 05/07/23 08:31 Ascorbic Acid 500 Mg Tablet PO 500 mg DAILY WILFREDO Administration Aspirin 81 mg 05/07/23 08:00 05/07/23 08:31 Aspirin 81 Mg Tab.Chew PO 81 mg BREAKFAST WILFREDO Administration Atorvastatin Calcium 80 mg 05/06/23 22:00 05/06/23 20:41 Atorvastatin Calcium 80 Mg Tablet PO 80 mg QHS WILFREDO Administration Carvedilol 25 mg 05/06/23 22:00 05/07/23 08:24 Carvedilol 25 Mg Tablet PO Not Given BID [facility] Protocol Cholecalciferol 25 mcg 05/07/23 10:00 05/07/23 08:26 Cholecalciferol (Vit D3) 25 Mcg Tablet (1,000 Units) PO 25 mcg DAILY WILFREDO Administration Empagliflozin 10 mg 05/07/23 10:00 05/07/23 08:25 Empagliflozin 10 Mg Tablet PO 10 mg DAILY WILFREDO Administration Guaifenesin 1,200 mg 05/06/23 14:26 05/07/23 08:25 Guaifenesin 1,200 Mg Tablet PO 1,200 mg BID WILFREDO Administration Hydralazine HCl 5 mg 05/06/23 14:26 Hydralazine 20 Mg/Ml Vial IV Q30M PRN to maintain BP goals Sodium Chloride 1,000 mls @ 75 mls/hr 05/06/23 13:57 05/07/23 05:42 IV 05/07/23 16:36 75 mls/hr .[id number] WILFREDO Administration Azithromycin 500 mg/ Dextrose 255 mls @ 250 mls/hr 05/06/23 15:00 05/07/23 09:48 IV Infused Q24 WILFREDO Infusion Ceftriaxone Sodium 1 gm in 50 mls @ 100 mls/hr 05/06/23 15:00 05/07/23 09:48 Rocephin IV Infused Q24 WILFREDO Infusion Sodium Chloride 500 mls @ 15 mls/hr 05/06/23 15:14 IV PRN PRN Blood Transfusion Sodium Chloride 250 mls @ 15 mls/hr 05/06/23 15:14 IV .[id number] PRN Additional IVPB Infusion Sodium Chloride 250 mls @ 15 mls/hr 05/06/23 15:14 IV .[id number] PRN Saline Flush Labetalol HCl 10 - 20 mg 05/06/23 14:26 Labetalol (Prefilled) 20 Mg/4 Ml IV Q10M PRN PRN to Maintain BP Goals Nutritional Formula (Lactose Free) 120 ml 05/06/23 18:00 05/07/23 13:28 Ensure Plus High Protein 120 Ml Liquid PO 120 ml 4X/DAY WILFREDO Administration Ondansetron HCl 4 mg 05/06/23 14:26 Ondansetron 4 Mg/2 Ml Vial IV Q8H PRN PRN NAUSEA/VOMITING Senna/Docusate Sodium 2 tablet 05/06/23 14:26 Senna/Docusate Sodium 1 Tablet PO BID PRN PRN Constipation Sodium Chloride 10 - 40 ml 05/06/23 15:14 0.9% Saline Lock 10 Ml Syringe IV UD PRN SALINE FLUSH
--- NOTE | 2023-05-07 14:04 | PCM.PN.REN ---
Subjective Subjective consult received, full note to follow -87 y/o female presented to ED on 05/06 due to not feeling well, confused. Underlying Afib, workup including CT head shows left temporoparietal infarct, MRI todya shows large acute/subacute stroke of left MCA. Nephrology consulted for THOMAS -baseline scr 0.9mg/dL -scr peaked at 1.7mg/dL and slightly improved to 1.6mg/dL -electrolytes ok -maintain perfusion pressure particularly given her ischemic stroke -bmp in -replace K -add urinary indices -give additional IVF bolus today. thanks Objective Data Objective Data Vital Signs: Vital Signs Temp Pulse Resp BP Pulse Ox O2 Del Method O2 Flow Rate 97.0 F L 80 18 117/71 94 Room Air 2 05/07/23 11:46 05/07/23 11:46 05/07/23 11:46 05/07/23 11:46 05/07/23 11:46 05/07/23 11:46 05/07/23 00:54 Oxygen Flow Rate (L/min) 2 Oxygen Delivery Method Room Air Weight: 43.4 kg Body Mass Index (BMI) 18.6 Intake & Output: Intake and Output for Last 24 Hours 05/05/23 05/06/23 05/07/23 23:59 23:59 23:59 Intake Total 791.67 / 791.67 1305 / 1305 Balance 791.67 / 791.67 1305 / 1305 Medical Nutrition Assessment Dietitian: Malnutrition Criteria Met Start: 05/07/23 13:39 Freq: Status: Active Protocol: Document 05/07/23 13:39 RMA (Rec: 05/07/23 13:39 RMA [id number]) Nutrition Malnutrition Evidence of Malnutrition Exists Yes Malnutrition (moderate): Chronic Evidenced By Suboptimal Energy Intake ( Moderate),Physical Changes ( Severe) Clinical Problem Chronic Disease or Condition Related Malnutrition Etiology Moderate to Severe protein- calorie malnutrition in the context of acute on chronic disease related to inadequate oral/energy intake and increased energy expenditure Signs/Symptoms as evidenced by PO meeting less than 75% estimated nutrition needs for repletion, BMI 18.7, severe muscle wasting/fat depletion in clavicle, orbitals, face, arms , legs Status Active Problem Recommendation Dietitian Recommendations/Changes Given low BMI and signs/ symptoms of malnutrition, will liberalize diet to regular/no added salt. Consistency/texture adjustments as needed per SPACER TYPE BAR AND SEGMENT. Will continue 120mL ensure plus high protein 4 times per day w/ medpass. Will add 240mL ensure clear with breakfast and magic cup w / lunch and dinner as tolerated. Consider enteral nutrition support if PO established inadequate/weight declines. Lab / Micro Data 05/07/23 05:49 05/07/23 05:49 Labs: Laboratory Results - last 24 hr 05/06/23 14:01: Urine Color Yellow, Urine Clarity Sl. Cloudy, Urine pH 5.0, Ur Specific [place] 1.025, Urine Protein 15 H, Urine Glucose (UA) Normal, Urine Ketones 15 H, Urine Occult Blood Negative, Urine Nitrite Negative, Urine Bilirubin Negative, Urine Urobilinogen 1 H, Ur Leukocyte Esterase 500 H, Urine RBC 0 SEEN, Urine WBC 5-10 SEEN, Ur Squamous Epith Cells 0 SEEN, Ur Renal Epithelial Cell 0-5 SEEN, Urine Bacteria 0 SEEN, Urine Mucus 0 SEEN, Urine Opiates Screen POSITIVE H, Urine Methadone Screen NEGATIVE, Ur Barbiturates Screen NEGATIVE, Ur Phencyclidine Scrn NEGATIVE, Ur Amphetamines Screen NEGATIVE, MDMA (Ecstasy) Screen NEGATIVE, U Benzodiazepines Scrn NEGATIVE, Urine Cocaine Screen NEGATIVE, U Cannabinoids Screen NEGATIVE, Ur Drug Screen Comment 05/06/23 16:00: MRSA (PCR) Negative 05/06/23 19:01: POC Glucose 75 05/07/23 00:46: POC Glucose 98 05/07/23 05:49: WBC 10.6, RBC 3.98 L, Hgb 11.2 L, Hct 36.5 L, MCV 91.7, MCH 28.1, MCHC 30.7 L, RDW Std Deviation 57.6 H, RDW Coeff of Jenny 17.0 H, Plt Count 355, MPV 10.3, Immature Gran % (Auto) 0.400, Neut % (Auto) 82.8 H, Lymph % (Auto) 8.7 L, [place] % (Auto) 6.8, Eos % (Auto) 1.0, Baso % (Auto) 0.3, Absolute Neuts (auto) 8.8 H, Absolute Lymphs (auto) 0.92, Nucleated RBC % 0, Sodium 139, Potassium 3.2 L, Chloride 106, Carbon Dioxide 23.0, Anion Gap 10, BUN 24 H, Creatinine 1.66 H, Estim Creat Clear Calc 16.36, Est GFR (MDRD) Af Amer 38 L, Est GFR (MDRD) Non-Af 31 L, BUN/Creatinine Ratio 14.5, Glucose 84, Hemoglobin A1c 5.4, Calcium 7.5 L, Triglycerides 114, Cholesterol 83, LDL Cholesterol 34, VLDL Cholesterol 23, HDL Cholesterol 26 L Micro: Microbiology 05/06/23 20:44 Mucosa - Nasopharyngeal SARS-CoV-2, Influenza & RSV (PCR) - Final Radiography Diagnostic Testing: Radiology Impression Brain MRI 05/06/23 14:26 IMPRESSION: Involutional changes of the brain, as described above. Large acute/subacute left middle cerebral artery infarct. Electronically Signed: Moisés Simpson MD at 19:36 EST Reading Location ID and State: [place] / [employer] Tel , Service support , ADDENDUM: 05/06/232104 IMPRESSION: Involutional changes of the brain, as described above. Large acute/subacute left middle cerebral artery infarct. N.B. : Sandy Ignacio MD, confirmed on 05/06/2023 20:58:18 (ET) that the referring physician received the results and does not require a verbal communication. Electronically Signed: Moisés Simpson MD at 19:36 EST Reading Location ID and State: [place] / [place] [employer] Tel , Service support , Head MRA 05/06/23 14:26 IMPRESSION: Decreased number of peripheral branches of the left middle cerebral artery consistent with acute infarct but no large vessel occlusion. Electronically Signed: Moisés Simpson MD at 19:39 EST Reading Location ID and State: [place] / [employer] Tel , Service support , Neck MRA 05/06/23 14:26 IMPRESSION: No carotid stenosis. Patent right vertebral artery. Suspect occluded left vertebral artery. Electronically Signed: Moisés Simpson MD at 19:41 EST Reading Location ID and State: [place] / [place] [employer] Tel , Service support , Rhythm Strip Rhythm Strip: A-fib Rate: 80 Ectopy: None
[2023-05-07] MEDS: Potassium Chloride 10mEq/100mL 10 MEQ/100 ML IV.SOLN. 100 MEQ IV BOLUS (15:10)
[2023-05-07] MEDS: Atorvastatin Calcium 80 MG Tablet PO (20:48)
[2023-05-07] MEDS: Carvedilol 25 MG Tablet PO (20:48)
[2023-05-07 20:53] LABS: Bedside Glucose 92 mg/dL (74-106)
[2023-05-08] VITALS (8 sets, daily range): BP systolic 111–136; BP diastolic 62–84; PULSE 72–90; RESP 16–18; TEMP 36.4–36.7; O2SAT 89–96
[2023-05-08] MEDS: Aspirin 81 MG TAB.CHEW PO (08:35)
[2023-05-08] MEDS: Empagliflozin 10 MG Tablet PO (08:35)
[2023-05-08] MEDS: Carvedilol 25 MG Tablet PO ×2 (08:35→20:47)
[2023-05-08] MEDS: Ascorbic Acid 500 MG Tablet PO (08:36)
[2023-05-08] MEDS: Cholecalciferol (VIT D3) 25 MCG TABLET (1,000 UNITS) PO (08:36)
[2023-05-08] MEDS: 0.9% Saline Lock 10 ML Syringe IV ×2 (08:37→11:00)
[2023-05-08] MEDS: Ceftriaxone 1 GM/50 ML BAG IV (11:00)
[2023-05-08] MEDS: Azithromycin 500 MG in Dextrose 5%-Water (250mL Bag) 250 ML 250 MG IV (12:23)
--- NOTE | 2023-05-08 13:15 | CASEMGMT ---
RN SUZETTE Assessment: RN CM informed pt's niece, Jackelin, would like to talk with RN SUZETTE. Call placed to Jackelin at this time. Call placed to Jackelin and introduced self and role. Jackelin states she is very involved w/pt and assists her and is willing to answer questions for RN SUZETTE, as pt is confused. Initial transition planning/care coordination assessment completed at this time. Care providers, pharmacy, and demographics verified/updated. Admitting Dx: aphasic, CVA PCP:Dr Borrero Specialists: [facility]/Cardiology Preferred Pharmacy: [facility] Retail Insurance: [facility] Prescription Benefit: yes HCPOA/LW: Chata states that pt has informed her she has done these, but Chata states she has not sure, as she has never seen the documents. LNOK: Mike Lombardo, son. Chata Cruz, niece Living Arrangements: Pt lives alone in a mobile home with 3 + 1 threshold step to enter with a rail on both sides. Jackelin states she lives 3 trailers down from pt in the mobile home park. She states pt's son was staying with patient for awhile in August after d/c from in until she was more independent. She reports since then pt has been completely independent w/ADL's and IADL's and manages her own medications. Pt will go to Jackelin's house for supper sometimes. Transportation: Pt does not drive. Jackelin provides transportation and takes her to appts and to the grocery store. DME/HHC/SNF: Pt has a BP monitor, cane (does not use), pulse ox, grab bars, and shower chair. Pt has had [facility] in the past and has been to [facility]. Chata states she thinks pt would benefit from going to [facility] RU or TCU, but is aware pt's son is LNOK and would be decision maker, as POA paperwork not on file. HOANG BRADFORD placed call to pt's son, Mike. Introduced self and role. Discussed discharge plan w/Mike. He also would like pt to go to [facility] RU or TCU (if unable to go to RU) and declines wanting list of other RU or SNF options. He states he does not want pt to go to any type of care home, even for a skilled stay. Mike states he lives in [place], is planning on leaving tomorrow to head to [place] and should be in [place] on Mon. He plans to eventually move pt to [place] with him after she recovers/discharges from RU/SNF. Plan: [facility]. Rachelle COOKN RN CM
--- NOTE | 2023-05-08 14:07 | CASEMGMT ---
Per RN CM patient's family would like [facility] Acute Rehab. SW made a referral to Jen. Emma RED
--- NOTE | 2023-05-08 14:08 | PCM.PN.HOSP ---
Subjective Subjective Doing well, no issues overnight. Still confused Objective Data Objective Data Vital Signs: Vital Signs Temp Pulse Resp BP Pulse Ox O2 Del Method O2 Flow Rate 97.8 F 85 18 116/62 94 Room Air 2 05/08/23 12:25 05/08/23 12:25 05/08/23 12:25 05/08/23 12:25 05/08/23 12:25 05/08/23 12:25 05/08/23 04:25 Oxygen Flow Rate (L/min) 2 Oxygen Delivery Method Room Air Weight: 102 lb 4.712 oz Body Mass Index (BMI) 20.0 Intake & Output: Intake and Output for Last 24 Hours 05/07/23 05/08/23 05/09/23 03:59 03:59 03:59 Intake Total 791.67 / 791.67 3325 / 3325 290 / 290 Balance 791.67 / 791.67 3325 / 3325 290 / 290 Medical Nutrition Assessment Dietitian: Malnutrition Criteria Met Start: 05/07/23 13:39 Freq: Status: Active Protocol: Document 05/07/23 13:39 RMA (Rec: 05/07/23 13:39 RMA [id number]) Nutrition Malnutrition Evidence of Malnutrition Exists Yes Malnutrition (moderate): Chronic Evidenced By Suboptimal Energy Intake ( Moderate),Physical Changes ( Severe) Clinical Problem Chronic Disease or Condition Related Malnutrition Etiology Moderate to Severe protein- calorie malnutrition in the context of acute on chronic disease related to inadequate oral/energy intake and increased energy expenditure Signs/Symptoms as evidenced by PO meeting less than 75% estimated nutrition needs for repletion, BMI 18.7, severe muscle wasting/fat depletion in clavicle, orbitals, face, arms , legs Status Active Problem Recommendation Dietitian Recommendations/Changes Given low BMI and signs/ symptoms of malnutrition, will liberalize diet to regular/no added salt. Consistency/texture adjustments as needed per IMAGE SCIENTIST. Will continue 120mL ensure plus high protein 4 times per day w/ medpass. Will add 240mL ensure clear with breakfast and magic cup w / lunch and dinner as tolerated. Consider enteral nutrition support if PO established inadequate/weight declines. Lab / Micro Data 05/07/23 05:49 05/07/23 05:49 Labs: Laboratory Results - last 24 hr 05/07/23 05:39: POC Glucose 92 Micro: Microbiology 05/06/23 20:44 Mucosa - Nasopharyngeal SARS-CoV-2, Influenza & RSV (PCR) - Final Radiography Diagnostic Testing: Radiology Impression Echocardiogram 05/06/23 14:26 Interpretation Summary The estimated ejection fraction is 60 %. Unable to assess diastolic dysfunction due to arrhythmia. There is mild biatrial dilatation. Mild diffuse mitral valve thickening. Moderate mitral annular calcification. Mild-Moderate (1-2+) mitral valve insufficiency. Moderate (2+) tricuspid valve insufficiency. Moderate size left pleural effusion. Bubble contrast study negative for right to left interatrial shunt. Ordering Physician: Jose Sarmiento Performed By: Laureen Wyatt RDCS Rhythm Strip Rhythm Strip: A-fib Rate: 80 Ectopy: None Physical Exam Narrative General: Alert, cooperative, No apparent distress HEENT: Atraumatic, PERRLA, EOMI, Normocephalic Oral: Moist Mucosa Neck: Supple, No JVD Lungs: Diminished, Normal air movement, No rhonchi, No wheeze, No rales Cardiovascular: Regular rate, irregular rhythm, Normal S1, Normal S2, No murmurs Abdomen: Soft, Non Tender, Non-Distended, No Hepato-splenomegaly Extremities: Edema, Capillary Refill Less than 3 Seconds Skin: No rashes, No breakdown Musculoskeletal: No Tenderness to Palpation of Joints or Extremities Neurological: Aphasia and dysarthria remains the same, Motor Exam 5/5 strength throughout, Sensory exam intact to light touch and pain Psych/Mental Status: Normal Affect, Appropriate Assessment & Plan Assessment/Plan (1) Acute encephalopathy: (2) Ischemic stroke: PLAN: Plan 1. Subacute/chronic left temporal parietal infarct: Patient is being admitted to PCU. And it is unclear whether patient took today's dose of aspirin or other medication but seems less likely as she is confused and disoriented lives alone but her niece lives close by neighborhood. Aspirin 81 mg 1 dose now and continue 325 mg her home dose and atorvastatin 80 mg daily. MRI brain and MRA head and neck without contrast ordered. PT, OT, speech therapy/swallow evaluation and management, nursing NIH stroke scale, BP and glucose monitoring and control as per stroke protocol. TSH, A1c fasting lipid profile tomorrow AM. 2D echo with bubble contrast study ordered 05/07: Patient is talkative, burnings aphasia but does not know what she means. She was talking on the phone. MRI brain shows a large left MCA infarct similar to the CT finding. MRI brain shows decreased number of peripheral branches of the left middle cerebral artery consistent with acute infarct but no large vessel occlusion. MRI brain shows suspected left vertebral artery occlusion but carotid arteries are patent. Nighttime hospitalist discussed with [facility] neurologist and recommended aspirin 325 mg to decrease to 81 mg daily. Start blood thinner after 7 days of acute stroke, start Eliquis 2.5 mg bid from 05/13/2023. Discontinue baby aspirin when starts Eliquis so that she is not on both baby aspirin and Eliquis. Continue high intensity statin statin. No need for environmental monitoring technician. [facility] Neurologist signed off but call back if new finding on ECHO like thrombus or any change in clinical status. 05/08/2023: Will start Eliquis on discharge, of note she did have a subdural and a subarachnoid hemorrhage back in July 2022 however neurology feels that she should be okay with Eliquis 2. Acute encephalopathy exact etiology unclear possible may be due to stroke/metabolic: Will try to treat underlying condition. Orientation cues. Patient is also hard of hearing. 05/07: Acute encephalopathy resolved. Most likely it was due to stroke. Patient still aphasic mainly Warnicke's aphasia. 3. History of right subdural hematoma which has resolved in the recent CT head. No evidence of acute bleed and CT head on admission. 4. Chronic heart failure with preserved ejection fraction: Patient has bilateral leg swelling. Not short of breath. Last 2D echo on May 16, 2022 EF of 55% Hold lisinopril but continue metoprolol aspirin and atorvastatin. 05/08/2023: Will hold her home blood pressure medications and allow permissive hypertension given the size of her infarct 5. THOMAS: Patient creatinine is 1.76. Baseline about 0.9 last April 28, 2023. Will give IV fluid normal saline. 05/07 continue IV fluid. Creatinine improving 1.66. Will consult nephrology. 6. Chronic A-fib: I do not think patient has chest pain. Twelve-lead EKG done in the ED reviewed. A-fib with PVC with aberrant conducted complexes, LAD, LVH with repolarization abnormality. Patient on verapamil 120 mg SR tablet, 2 tablets twice daily. Metoprolol 25 mg twice daily. 7. Chest x-ray infiltrate, right-sided pleural effusion, concern for pneumonia: Chest x-ray individually reviewed and shows bilateral lower lobes infiltrate worse on the right side. Moderate right pleural effusion. Patient also has cough observed in ED. Rapid flu COVID and RSV ordered. Pneumonia workup ordered. Empirically started on IV ceftriaxone. 8. History of left wrist fracture, fall and subdural hematoma from recent fall and was admitted in [facility] in July 2022 9. Dysphagia: Chronic. Speech therapy will evaluate 10. Severe protein-calorie malnutrition: Nutrition evaluation Ensure clear. 11. Other Chronic conditions Hypertension: Hold lisinopril. Pulmonary artery hypertension: Noted on echocardiogram. Unclear which type. Patient may benefit from a polysomnogram as outpatient. DVT: SCDs Capacity Legal Vineyard Supervisor Reflex Medical hold order details:: IF a medical hold is selected below, a suggested order for a MEDICAL HOLD will reflex upon signing the document. Next of kin: [place] law dictates a PRIORITY LIST for identifying legal decision-maker/legal next of kin in the following order (LNOK): 1st: The patient?s legal guardian, if any 2nd: The patient's spouse (if status is questionable, consult Risk Management) 3rd: The patient?s adult child(isaac) (majority, if multiple children) 4th: The patient?s parents 5th: The patient?s adult siblings (majority, if multiple children siblings) Charges/Coding Visit Charges Inpatient E&M: 63331 Subs Hosp L2
[2023-05-08] MEDS: Ensure Plus High Protein 120 ML LIQUID PO ×2 (15:29→17:28)
--- NOTE | 2023-05-08 18:18 | CON.PCM.RE_ITS ---
Assessment & Plan Assessment/Plan (1) Acute kidney injury: (2) Hypokalemia: PLAN: Plan Impression/Plan: The patient is a 87-year-old woman with past history of hypertension, atrial fibrillation, pulmonary hypertension, HFpEF, and osteoporosis. She was admitted to hospital on 05/06/2023 with 4-day history of encephalopathy and aphasia. She was suddenly diagnosed with large left temporoparietal l infarct. Nephrology is following for THOMAS. Acute kidney injury. Serum creatinine was 0.91 mg/dL as recently as 04/28/2023. Suspect THOMAS is prerenal/hemodynamic. Patient likely had poor oral intake prior to admission and was on lisinopril, furosemide and spironolactone prior to admission. Urinalysis from 05/06/2023 did not reveal any significant microscopic RBCs or WBCs. There was 1+ protein on dipstick although urine was quite concentrated with specific gravity of 1.025 which is consistent with prerenal THOMAS. Low suspicion for other causes of THOMAS at this point. Renal function did improve between 05/06/2023 until 05/07/2023, and serum creatinine was down to 1.66 mg/dL on 05/07/2023. There is no new labs today. Agree with holding lisinopril, furosemide and spironolactone. BP is reasonably controlled without lisinopril. She remains on carvedilol. Keep MAP above 65 mmHg. Recheck renal function, volume status, electrolytes and acid-base status tomorrow. Hypokalemia. Potassium level was mildly decreased at 3.2 mmol/L on 05/07/2023. Hypokalemia is likely due to prior use of diuretic and in the setting of decreased intake. Recheck potassium and magnesium level tomorrow. HPI Consult Data Date of Consult: 05/08/23 HPI Narrative Reason for Consultation: THOMAS. HPI Narrative: The patient is a 87-year-old woman with past history of hypertension, atrial fibrillation, pulmonary hypertension, HFpEF, and osteoporosis. The patient presents to the hospital on 05/06/2023 with generalized weakness and confusion for 4 days prior to presentation. EMS was called by her niece wandering around her home. The patient was found to have subacute left temporal parietal infarct with associated encephalopathy. She is also being treated for right pleural effusion and possible pneumonia with antimicrobial. Nephrology is asked see the patient because of acute kidney injury. The patient has no prior history of CKD. Serum creatinine was 0.91 mg/dL as recently as 04/28/2023. Serum creatinine increased to 1.76 mg/dL on 05/06/2023 and stabilized at 1.66 mg/dL on 05/07/2023. The patient denies current chest pain, dyspnea at rest, nausea, or diarrhea. She does have chronic lower extremity edema which is not any worse than usual subjectively. She feels better overall compared to the day of presentation. Prior to admission, the patient had been on furosemide, lisinopril, and spironolactone. FOR[facility]LY [facility], [facility] Medical History Chronic a-fib Chronic renal disease Dysphagia Fall History of ectopic HTN (hypertension) Left ventricular hypertrophy Longstanding persistent atrial fibrillation Moderate pulmonary hypertension Peripheral vascular disease Pleural effusion Pulmonary hypertension Subarachnoid hemorrhage Subdural hematoma Tobacco dependence Wrist fracture, left Home Medications ascorbic acid (vitamin C) 500 mg capsule 500 mg PO DAILY supp 04/19/22 [History Last Taken Unknown] atorvastatin 80 mg tablet 80 mg PO QHS cholesterol #30 tabs 08/22/22 [Rx Last Taken Unknown] cholecalciferol (vitamin D3) 25 mcg (1,000 unit) capsule 25 mcg PO DAILY supp #30 caps 08/22/22 [Rx Last Taken Unknown] aspirin 325 mg tablet,delayed release 325 mg PO QHS anticoag 08/26/22 [History Last Taken Unknown] empagliflozin 10 mg tablet (Jardiance) 10 mg PO DAILY diabetes 08/31/22 [History Last Taken Unknown] spironolactone 25 mg tablet 25 mg PO DAILY bp 08/31/22 [History Last Taken Unknown] lisinopril 5 mg tablet (Zestril) 2.5 mg (1/2 x 5 mg) PO DAILY bp #30 tabs 09/01/22 [Rx Last Taken Unknown] alendronate 35 mg tablet 35 mg PO FR osteoporosis 12/02/22 [History Last Taken Unknown] itumglaeh-LH-uerhbobmpgvxw 1 tab PO ONCE PRN pain 12/02/22 [History Last Taken Unknown] carvedilol 25 mg tablet 25 mg PO BID #180 tabs 02/09/23 [Rx Last Taken Unknown] furosemide 40 mg tablet (Lasix) 20 mg PO BID water pill 04/05/23 [History Last Taken Unknown] acetaminophen 325 mg capsule (Tylenol) 325 mg PO Q6H PRN fever or pain 05/06/23 [History Last Taken Unknown] donepezil 5 mg tablet 5 mg PO QHS memory 05/06/23 [History Last Taken Unknown] echinacea 400 mg capsule 400 mg PO DAILY dietary supplement 05/06/23 [History Last Taken Unknown] olopatadine 0.2 % eye drops (Pataday Once Daily Relief) 1 drp EACH EYE DAILY itchy eyes 05/06/23 [History Last Taken Unknown] Allergy/AdvReac Type Severity Reaction Status Date / Time diphenhydramine AdvReac Intermediate Other Verified 05/06/23 09:39 [From Benadryl] Surgical History H/O: hysterectomy (~1972) History of cataract surgery (~1989) Social History household members: none and other details: she has been for 20 years. housing: other details: She lives in a trailer number of children: 1 current occupational status: retired pets and animals: Yes (2 cats) pets and animals: cat(s) Smoking Status: Light Smoker (<10/day) Tobacco: How many years used: 72 counseling given: provider counseling alcohol intake: current alcohol intake frequency: 0-2 drinks per day details: She drinks a small juice glass of wine, when she has it, 4-5 days per week. substance use type: does not use what type of physical activity do you participate in: walking ROS ROS Narrative As per HPI otherwise noncontributory. Physical Exam Narrative General: Alert and oriented x3, NAD. HEENT: Normocephalic, atraumatic. Mucous membrane moist without erythema. PERRLA, EOMI. Hearing is intact. Neck: Supple, no JVD. Trachea is midline. No thyromegaly or lymphadenopathy. Cardiovascular: Normal S1, S2. No rubs, murmurs, or gallops. Respiratory: Lungs are clear to auscultation bilaterally anteriorly. No wheezing, rhonchi, or rales. Abdomen: Normal bowel sounds, soft, nontender, no guarding or rebound, no organomegaly. Extremities: No clubbing or cyanosis. There is 1+ lower extremity edema. Musculoskeletal: Full passive range of motion, no joint swelling. Psychiatric: Normal mood and affect. Skin: Warm and dry, no rash. Medical Records Data Medical Nutrition Assessment Dietitian: Malnutrition Criteria Met Start: 05/07/23 13:39 Freq: Status: Active Protocol: Document 05/07/23 13:39 RMA (Rec: 05/07/23 13:39 RMA [id number]) Nutrition Malnutrition Evidence of Malnutrition Exists Yes Malnutrition (moderate): Chronic Evidenced By Suboptimal Energy Intake ( Moderate),Physical Changes ( Severe) Clinical Problem Chronic Disease or Condition Related Malnutrition Etiology Moderate to Severe protein- calorie malnutrition in the context of acute on chronic disease related to inadequate oral/energy intake and increased energy expenditure Signs/Symptoms as evidenced by PO meeting less than 75% estimated nutrition needs for repletion, BMI 18.7, severe muscle wasting/fat depletion in clavicle, orbitals, face, arms , legs Status Active Problem Recommendation Dietitian Recommendations/Changes Given low BMI and signs/ symptoms of malnutrition, will liberalize diet to regular/no added salt. Consistency/texture adjustments as needed per MAKE UP GIRL. Will continue 120mL ensure plus high protein 4 times per day w/ medpass. Will add 240mL ensure clear with breakfast and magic cup w / lunch and dinner as tolerated. Consider enteral nutrition support if PO established inadequate/weight declines. Lab / Micro Data 05/07/23 05:49 05/07/23 05:49 Labs: Laboratory Results - last 24 hr 05/07/23 05:39: POC Glucose 92 Rhythm Strip Rhythm Strip: A-fib Rate: 80 Ectopy: None Imagaing Radiology Impression Echocardiogram 05/06/23 14:26 Interpretation Summary The estimated ejection fraction is 60 %. Unable to assess diastolic dysfunction due to arrhythmia. There is mild biatrial dilatation. Mild diffuse mitral valve thickening. Moderate mitral annular calcification. Mild-Moderate (1-2+) mitral valve insufficiency. Moderate (2+) tricuspid valve insufficiency. Moderate size left pleural effusion. Bubble contrast study negative for right to left interatrial shunt. Ordering Physician: Jose Sarmiento Performed By: Laureen Wyatt RDCS Capacity Legal Geriatric Assistant Reflex Medical hold order details:: IF a medical hold is selected below, a suggested order for a MEDICAL HOLD will reflex upon signing the document. Next of kin: [place] law dictates a PRIORITY LIST for identifying legal decision-maker/legal next of kin in the following order (LNOK): 1st: The patient?s legal guardian, if any 2nd: The patient's spouse (if status is questionable, consult Risk Management) 3rd: The patient?s adult child(isaac) (majority, if multiple children) 4th: The patient?s parents 5th: The patient?s adult siblings (majority, if multiple children siblings)
[2023-05-08] MEDS: Ipratropium/Albuterol Sulfate 3 ML AMPUL.NEB INHALATION (19:58)
[2023-05-08] MEDS: guaiFENesin 1,200 MG Tablet 1200 MG PO (20:47)
[2023-05-08] MEDS: Atorvastatin Calcium 80 MG Tablet PO (20:47)
[2023-05-09 00:25] VITALS: BP 108/55; PULSE 83; RESP 16; TEMP 36.6; O2SAT 96
[2023-05-09 04:25] VITALS: BP 118/71; PULSE 70; RESP 18; TEMP 36.5; O2SAT 96
[2023-05-09 06:00] VITALS: BMI 19.8
[2023-05-09 07:58] LABS: Absolute Lymphocyte Count 1.23 X10^3/uL (0.83-4.51); Absolute Neutrophil Count 6.1 X10^3/uL (2.0-7.7); Basophil# 0.02 X10^3/uL; Basophil% 0.2 % (0-1); Eosinophil# 0.27 X10^3/uL; Eosinophils% 3.3 % (0-5); Hematocrit 38.8 % (37-47); Hemoglobin 12.3 g/dL (12.0-15.0); Lymphocyte # 1.23 X10^3/ul (0.83-4.51); Lymphocyte % 14.8 % (19-41); Mean Corp Hgb Conc 31.7 g/dL (32-36); Mean Corpuscular Hgb 28.5 pg (27.0-32.0); Mean Platelet Vol. 9.7 fl (6.2-12.0); Monocyte# 0.67 X10^3/uL; Monocyte% 8.1 % (0-10); NRBC Flagged by Analyzer 0 % (0-5); Neutrophil # 6.08 X10^3/uL (2.7-7.7); Neutrophil % 73.2 % (47-70); Platelet Count 352 K/mm3 (150-450); RBC Distribution Width SD 55.3 fl (35.1-43.9); Red Blood Count 4.31 M/mm3 (4.2-5.4); White Blood Count 8.3 K/mm3 (4.4-11.0)
[2023-05-09 08:04] VITALS: PULSE 77; RESP 20; O2SAT 95
[2023-05-09 08:35] LABS: Anion Gap 5 (5-15); BUN 15 mg/dL (7-18); BUN/Creat Ratio 14.2 RATIO (10-20); Calcium,Total 8.1 mg/dL (8.5-10.1); Chloride 110 mmol/L (98-107); Creatinine, Serum 1.06 mg/dL (0.55-1.02); EST Glomerular Filtration Rate 52 mL/min (>60); Est Glom Filt Rate - Afr Amer 63 mL/min (>60); Estimated Creatinine Clearance 26.86 ml/min; Glucose 104 mg/dL (74-106); Magnesium 2.2 mg/dL (1.6-2.6); Potassium 3.4 mmol/L (3.5-5.1); Sodium Level 140 mmol/L (136-145)
[2023-05-09 09:30] VITALS: BP 140/64; PULSE 82; RESP 18; TEMP 36.3; O2SAT 96
[2023-05-09] MEDS: Carvedilol 25 MG Tablet PO ×2 (09:30→21:21)
[2023-05-09] MEDS: Empagliflozin 10 MG Tablet PO (09:30)
[2023-05-09] MEDS: guaiFENesin 1,200 MG Tablet 1200 MG PO ×2 (09:30→21:21)
[2023-05-09] MEDS: Ensure Plus High Protein 120 ML LIQUID PO ×4 (09:30→21:22)
[2023-05-09] MEDS: Cholecalciferol (VIT D3) 25 MCG TABLET (1,000 UNITS) PO (09:30)
[2023-05-09] MEDS: Aspirin 81 MG TAB.CHEW PO (09:31)
[2023-05-09] MEDS: Ceftriaxone 1 GM/50 ML BAG IV (09:31)
[2023-05-09] MEDS: Ascorbic Acid 500 MG Tablet PO (09:31)
[2023-05-09] MEDS: 0.9% Saline Lock 10 ML Syringe IV (09:31)
[2023-05-09] MEDS: Azithromycin 500 MG in Dextrose 5%-Water (250mL Bag) 250 ML 250 MG IV (10:20)
--- NOTE | 2023-05-09 10:21 | CASEMGMT ---
Patient was accepted in [facility]. Madelyn will start the pre-cert. Plan: d/c to [facility] pending insurance approval. Emma RED
--- NOTE | 2023-05-09 10:47 | PN.HOSP_ITS ---
Subjective Subjective Doing well, no issues overnight Objective Data Objective Data Vital Signs: Vital Signs Temp Pulse Resp BP Pulse Ox O2 Del Method O2 Flow Rate 97.4 F L 82 18 140/64 H 96 Room Air 2 05/09/23 09:30 05/09/23 09:30 05/09/23 09:30 05/09/23 09:30 05/09/23 09:30 05/09/23 09:30 05/09/23 08:04 Oxygen Flow Rate (L/min) 2 Oxygen Delivery Method Room Air Weight: 101 lb 6.602 oz Body Mass Index (BMI) 19.8 Intake & Output: Intake and Output for Last 24 Hours 05/08/23 05/09/23 05/10/23 03:59 03:59 03:59 Intake Total 3325 / 3325 1115 / 1115 50 / 50 Balance 3325 / 3325 1115 / 1115 50 / 50 Medical Nutrition Assessment Dietitian: Malnutrition Criteria Met Start: 05/07/23 13:39 Freq: Status: Active Protocol: Document 05/07/23 13:39 RMA (Rec: 05/07/23 13:39 RMA [id number]) Nutrition Malnutrition Evidence of Malnutrition Exists Yes Malnutrition (moderate): Chronic Evidenced By Suboptimal Energy Intake ( Moderate),Physical Changes ( Severe) Clinical Problem Chronic Disease or Condition Related Malnutrition Etiology Moderate to Severe protein- calorie malnutrition in the context of acute on chronic disease related to inadequate oral/energy intake and increased energy expenditure Signs/Symptoms as evidenced by PO meeting less than 75% estimated nutrition needs for repletion, BMI 18.7, severe muscle wasting/fat depletion in clavicle, orbitals, face, arms , legs Status Active Problem Recommendation Dietitian Recommendations/Changes Given low BMI and signs/ symptoms of malnutrition, will liberalize diet to regular/no added salt. Consistency/texture adjustments as needed per DIRECTOR OF FINANCIAL AID. Will continue 120mL ensure plus high protein 4 times per day w/ medpass. Will add 240mL ensure clear with breakfast and magic cup w / lunch and dinner as tolerated. Consider enteral nutrition support if PO established inadequate/weight declines. Lab / Micro Data 05/09/23 07:15 05/09/23 07:15 Labs: Laboratory Results - last 24 hr 05/09/23 07:15: WBC 8.3, RBC 4.31, Hgb 12.3, Hct 38.8, MCV 90.0, MCH 28.5, MCHC 31.7 L, RDW Std Deviation 55.3 H, RDW Coeff of Jenny 17.0 H, Plt Count 352, MPV 9.7, Immature Gran % (Auto) 0.400, Neut % (Auto) 73.2 H, Lymph % (Auto) 14.8 L, [place] % (Auto) 8.1, Eos % (Auto) 3.3, Baso % (Auto) 0.2, Absolute Neuts (auto) 6.1, Absolute Lymphs (auto) 1.23, Nucleated RBC % 0, Sodium 140, Potassium 3.4 L , Chloride 110 H, Carbon Dioxide 25.0, Anion Gap 5, BUN 15, Creatinine 1.06 H, Estim Creat Clear Calc 26.86, Est GFR (MDRD) Af Amer 63, Est GFR (MDRD) Non-Af 52 L, BUN/Creatinine Ratio 14.2, Glucose 104, Calcium 8.1 L, Magnesium 2.2 Micro: Microbiology 05/06/23 15:00 Blood Culture (Wb) - Anticubital Left Blood Culture - Preliminary No growth in 48 hours. 05/06/23 14:50 Blood Culture (Wb) - Anticubital Right Blood Culture - Preliminary No growth in 48 hours. 05/06/23 20:44 Mucosa - Nasopharyngeal SARS-CoV-2, Influenza & RSV (PCR) - Final Radiography Diagnostic Testing: Radiology Impression Echocardiogram 05/06/23 14:26 Interpretation Summary The estimated ejection fraction is 60 %. Unable to assess diastolic dysfunction due to arrhythmia. There is mild biatrial dilatation. Mild diffuse mitral valve thickening. Moderate mitral annular calcification. Mild-Moderate (1-2+) mitral valve insufficiency. Moderate (2+) tricuspid valve insufficiency. Moderate size left pleural effusion. Bubble contrast study negative for right to left interatrial shunt. Ordering Physician: Jose Sarmiento Performed By: Laureen Wyatt, LYNNETTE Rhythm Strip Rhythm Strip: A-fib Rate: 80 Ectopy: None Physical Exam Narrative General: Alert, cooperative, No apparent distress HEENT: Atraumatic, PERRLA, EOMI, Normocephalic Oral: Moist Mucosa Neck: Supple, No JVD Lungs: Diminished, Normal air movement, No rhonchi, No wheeze, No rales Cardiovascular: Regular rate, irregular rhythm, Normal S1, Normal S2, No murmurs Abdomen: Soft, Non Tender, Non-Distended, No Hepato-splenomegaly Extremities: Edema, Capillary Refill Less than 3 Seconds Skin: No rashes, No breakdown Musculoskeletal: No Tenderness to Palpation of Joints or Extremities Neurological: Aphasia and dysarthria remains the same, Motor Exam 5/5 strength throughout, Sensory exam intact to light touch and pain Psych/Mental Status: Normal Affect, Appropriate Assessment & Plan Assessment/Plan (1) Acute encephalopathy: (2) Ischemic stroke: PLAN: Plan 1. Subacute/chronic left temporal parietal infarct: Patient is being admitted to PCU. And it is unclear whether patient took today's dose of aspirin or other medication but seems less likely as she is confused and disoriented lives alone but her niece lives close by neighborhood. Aspirin 81 mg 1 dose now and continue 325 mg her home dose and atorvastatin 80 mg daily. MRI brain and MRA head and neck without contrast ordered. PT, OT, speech therapy/swallow evaluation and management, nursing NIH stroke scale, BP and glucose monitoring and control as per stroke protocol. TSH, A1c fasting lipid profile tomorrow AM. 2D echo with bubble contrast study ordered 05/07: Patient is talkative, burnings aphasia but does not know what she means. She was talking on the phone. MRI brain shows a large left MCA infarct similar to the CT finding. MRI brain shows decreased number of peripheral branches of the left middle cerebral artery consistent with acute infarct but no large vessel occlusion. MRI brain shows suspected left vertebral artery occlusion but carotid arteries are patent. Nighttime hospitalist discussed with [facility] neurologist and recommended aspirin 325 mg to decrease to 81 mg daily. Start blood thinner after 7 days of acute stroke, start Eliquis 2.5 mg bid from 05/13/2023. Discontinue baby aspirin when starts Eliquis so that she is not on both baby aspirin and Eliquis. Continue high intensity statin statin. 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 [facility] Neurologist signed off but call back if new finding on ECHO like thrombus or any change in clinical status. 05/08/2023: Will start Eliquis on discharge, of note she did have a subdural and a subarachnoid hemorrhage back in July 2022 however neurology feels that she should be okay with Eliquis 2. Acute encephalopathy exact etiology unclear possible may be due to stroke/metabolic: Will try to treat underlying condition. Orientation cues. Patient is also hard of hearing. 05/07: Acute encephalopathy resolved. Most likely it was due to stroke. Patient still aphasic mainly Warnicke's aphasia. 3. History of right subdural hematoma which has resolved in the recent CT head. No evidence of acute bleed and CT head on admission. 4. Chronic heart failure with preserved ejection fraction: Patient has bilateral leg swelling. Not short of breath. Last 2D echo on May 16, 2022 EF of 55% Hold lisinopril but continue metoprolol aspirin and atorvastatin. 05/08/2023: Will hold her home blood pressure medications and allow permissive hypertension given the size of her infarct 5. THOMAS: Patient creatinine is 1.76. Baseline about 0.9 last April 28, 2023. Will give IV fluid normal saline. 05/07 continue IV fluid. Creatinine improving 1.66. Will consult nephrology. 05/09/2023: Creatinine has resolved back to baseline 6. Chronic A-fib: I do not think patient has chest pain. Twelve-lead EKG done in the ED reviewed. A-fib with PVC with aberrant conducted complexes, LAD, LVH with repolarization abnormality. Patient on verapamil 120 mg SR tablet, 2 tablets twice daily. Metoprolol 25 mg twice daily. 7. Chest x-ray infiltrate, right-sided pleural effusion, concern for pneumonia: Chest x-ray individually reviewed and shows bilateral lower lobes infiltrate worse on the right side. Moderate right pleural effusion. Patient also has cough observed in ED. Rapid flu COVID and RSV ordered. Pneumonia workup ordered. Empirically started on IV ceftriaxone. 05/09/2023: Will complete azithromycin and Rocephin today 8. History of left wrist fracture, fall and subdural hematoma from recent fall and was admitted in [facility] in July 2022 9. Dysphagia: Chronic. Speech therapy will evaluate 10. Severe protein-calorie malnutrition: Nutrition evaluation Ensure clear. 11. Other Chronic conditions * Hypertension: Hold lisinopril. * Pulmonary artery hypertension: Noted on echocardiogram. Unclear which type. Patient may benefit from a polysomnogram as outpatient. DVT: SCDs Capacity Legal Bolt Threader Reflex Medical hold order details:: IF a medical hold is selected below, a suggested order for a MEDICAL HOLD will reflex upon signing the document. Next of kin: [place] law dictates a PRIORITY LIST for identifying legal decision-maker/legal next of kin in the following order (LNOK): 1st: The patient?s legal guardian, if any 2nd: The patient's spouse (if status is questionable, consult Risk Management) 3rd: The patient?s adult child(isaac) (majority, if multiple children) 4th: The patient?s parents 5th: The patient?s adult siblings (majority, if multiple children siblings) Charges/Coding Visit Charges Inpatient E&M: 37321 Subs Hosp L2
--- NOTE | 2023-05-09 11:19 | PCM.PN.REN ---
Subjective Subjective Sitting up in bed finishing breakfast. Denies any nausea, vomiting or diarrhea. Objective Data Objective Data Vital Signs: Vital Signs Temp Pulse Resp BP Pulse Ox O2 Del Method O2 Flow Rate 97.4 F L 82 18 140/64 H 96 Room Air 2 05/09/23 09:30 05/09/23 09:30 05/09/23 09:30 05/09/23 09:30 05/09/23 09:30 05/09/23 09:30 05/09/23 08:04 Oxygen Flow Rate (L/min) 2 Oxygen Delivery Method Room Air Weight: 46 kg Body Mass Index (BMI) 19.8 Intake & Output: Intake and Output for Last 24 Hours 05/07/23 05/08/23 05/09/23 23:59 23:59 23:59 Intake Total 3325 / 3325 995 / 1115 170 / 170 Balance 3325 / 3325 995 / 1115 170 / 170 Medical Nutrition Assessment Dietitian: Malnutrition Criteria Met Start: 05/07/23 13:39 Freq: Status: Active Protocol: Document 05/07/23 13:39 RMA (Rec: 05/07/23 13:39 RMA [id number]) Nutrition Malnutrition Evidence of Malnutrition Exists Yes Malnutrition (moderate): Chronic Evidenced By Suboptimal Energy Intake ( Moderate),Physical Changes ( Severe) Clinical Problem Chronic Disease or Condition Related Malnutrition Etiology Moderate to Severe protein- calorie malnutrition in the context of acute on chronic disease related to inadequate oral/energy intake and increased energy expenditure Signs/Symptoms as evidenced by PO meeting less than 75% estimated nutrition needs for repletion, BMI 18.7, severe muscle wasting/fat depletion in clavicle, orbitals, face, arms , legs Status Active Problem Recommendation Dietitian Recommendations/Changes Given low BMI and signs/ symptoms of malnutrition, will liberalize diet to regular/no added salt. Consistency/texture adjustments as needed per WOUND CARE NURSE. Will continue 120mL ensure plus high protein 4 times per day w/ medpass. Will add 240mL ensure clear with breakfast and magic cup w / lunch and dinner as tolerated. Consider enteral nutrition support if PO established inadequate/weight declines. Lab / Micro Data 05/09/23 07:15 05/09/23 07:15 Labs: Laboratory Results - last 24 hr 05/09/23 07:15: WBC 8.3, RBC 4.31, Hgb 12.3, Hct 38.8, MCV 90.0, MCH 28.5, MCHC 31.7 L, RDW Std Deviation 55.3 H, RDW Coeff of Jenny 17.0 H, Plt Count 352, MPV 9.7, Immature Gran % (Auto) 0.400, Neut % (Auto) 73.2 H, Lymph % (Auto) 14.8 L, [place] % (Auto) 8.1, Eos % (Auto) 3.3, Baso % (Auto) 0.2, Absolute Neuts (auto) 6.1, Absolute Lymphs (auto) 1.23, Nucleated RBC % 0, Sodium 140, Potassium 3.4 L, Chloride 110 H, Carbon Dioxide 25.0, Anion Gap 5, BUN 15, Creatinine 1.06 H, Estim Creat Clear Calc 26.86, Est GFR (MDRD) Af Amer 63, Est GFR (MDRD) Non-Af 52 L, BUN/Creatinine Ratio 14.2, Glucose 104, Calcium 8.1 L, Magnesium 2.2 Micro: Microbiology 05/06/23 15:00 Blood Culture (Wb) - Anticubital Left Blood Culture - Preliminary No growth in 48 hours. 05/06/23 14:50 Blood Culture (Wb) - Anticubital Right Blood Culture - Preliminary No growth in 48 hours. 05/06/23 20:44 Mucosa - Nasopharyngeal SARS-CoV-2, Influenza & RSV (PCR) - Final Radiography Diagnostic Testing: Radiology Impression Echocardiogram 05/06/23 14:26 Interpretation Summary The estimated ejection fraction is 60 %. Unable to assess diastolic dysfunction due to arrhythmia. There is mild biatrial dilatation. Mild diffuse mitral valve thickening. Moderate mitral annular calcification. Mild-Moderate (1-2+) mitral valve insufficiency. Moderate (2+) tricuspid valve insufficiency. Moderate size left pleural effusion. Bubble contrast study negative for right to left interatrial shunt. Ordering Physician: Jose Sarmiento Performed By: Charenton, Laureen, RDCS Rhythm Strip Rhythm Strip: A-fib Rate: 80 Ectopy: None Physical Exam Narrative Alert and oriented x3, NAD. S1, S2, RRR Lung sounds clear anteriorly. No wheezes rhonchi rales noted Abdomen soft, nontender No pitting edema Assessment & Plan Assessment/Plan (1) Acute kidney injury: (2) Hypokalemia: PLAN: Plan Impression/Plan: The patient is a 87-year-old woman with past history of hypertension, atrial fibrillation, pulmonary hypertension, HFpEF, and osteoporosis. She was admitted to hospital on 05/06/2023 with 4-day history of encephalopathy and aphasia. She was suddenly diagnosed with large left temporoparietal l infarct. Nephrology is following for THOMAS. - Acute kidney injury. Serum creatinine was 0.91 mg/dL as recently as 04/28/2023. Suspect THOMAS is prerenal/hemodynamic. Patient likely had poor oral intake prior to admission and was on lisinopril, furosemide and spironolactone prior to admission. Urinalysis from 05/06/2023 did not reveal any significant microscopic RBCs or WBCs. There was 1+ protein on dipstick although urine was quite concentrated with specific gravity of 1.025 which is consistent with prerenal THOMAS. Low suspicion for other causes of THOMAS at this point. Serum creatinine was 1.76 mg/dL on 05/06, and today creatinine improved to 1.06 mg/dL. Overall renal function stable and improved. Patient is nonoliguric. - Hypertension: Agree with holding lisinopril, furosemide and spironolactone. BP is reasonably controlled on Carvedilol - Hypokalemia. Hypokalemia is likely due to prior use of diuretic and in the setting of decreased intake. Magnesium is 2.2. Potassium slightly improved today 3.4 today. patient does not need any renal diet restrictions. - Discharge planning in progress possibly to rehab unit Capacity Legal Emergency Service Restorer Reflex Medical hold order details:: IF a medical hold is selected below, a suggested order for a MEDICAL HOLD will reflex upon signing the document. Next of kin: [place] law dictates a PRIORITY LIST for identifying legal decision-maker/legal next of kin in the following order (LNOK): 1st: The patient?s legal guardian, if any 2nd: The patient's spouse (if status is questionable, consult Risk Management) 3rd: The patient?s adult child(isaac) (majority, if multiple children) 4th: The patient?s parents 5th: The patient?s adult siblings (majority, if multiple children siblings)
[2023-05-09 13:56] VITALS: BMI 19.8
[2023-05-09] MEDS: Potassium Chloride Oral Tablet 20 MEQ 40 MEQ PO (14:16)
[2023-05-09 15:20] VITALS: BP 138/81; PULSE 72; RESP 18; TEMP 36.3; O2SAT 95
--- NOTE | 2023-05-09 15:56 | STROKE.PNOTE ---
Objective Data Objective Data Vital Signs: Vital Signs Temp Pulse Resp BP Pulse Ox O2 Del Method O2 Flow Rate 97.4 F L 72 18 138/81 H 95 Room Air 2 05/09/23 15:20 05/09/23 15:20 05/09/23 15:20 05/09/23 15:20 05/09/23 15:20 05/09/23 15:20 05/09/23 08:04 Oxygen Flow Rate (L/min) 2 Oxygen Delivery Method Room Air Weight: 46 kg Body Mass Index (BMI) 19.8 Intake & Output: Intake and Output for Last 24 Hours 05/07/23 05/08/23 05/09/23 23:59 23:59 23:59 Intake Total 3325 / 3325 995 / 1115 785 / 785 Balance 3325 / 3325 995 / 1115 785 / 785 Medical Nutrition Assessment Dietitian: Malnutrition Criteria Met Start: 05/07/23 13:39 Freq: Status: Active Protocol: Document 05/07/23 13:39 RMA (Rec: 05/07/23 13:39 RMA [id number]) Nutrition Malnutrition Evidence of Malnutrition Exists Yes Malnutrition (moderate): Chronic Evidenced By Suboptimal Energy Intake ( Moderate),Physical Changes ( Severe) Clinical Problem Chronic Disease or Condition Related Malnutrition Etiology Moderate to Severe protein- calorie malnutrition in the context of acute on chronic disease related to inadequate oral/energy intake and increased energy expenditure Signs/Symptoms as evidenced by PO meeting less than 75% estimated nutrition needs for repletion, BMI 18.7, severe muscle wasting/fat depletion in clavicle, orbitals, face, arms , legs Status Active Problem Recommendation Dietitian Recommendations/Changes Given low BMI and signs/ symptoms of malnutrition, will liberalize diet to regular/no added salt. Consistency/texture adjustments as needed per WASTE REDUCTION COORDINATOR. Will continue 120mL ensure plus high protein 4 times per day w/ medpass. Will add 240mL ensure clear with breakfast and magic cup w / lunch and dinner as tolerated. Consider enteral nutrition support if PO established inadequate/weight declines. Lab / Micro Data 05/09/23 07:15 05/09/23 07:15 Labs: Laboratory Results - last 24 hr 05/09/23 07:15: WBC 8.3, RBC 4.31, Hgb 12.3, Hct 38.8, MCV 90.0, MCH 28.5, MCHC 31.7 L, RDW Std Deviation 55.3 H, RDW Coeff of Jenny 17.0 H, Plt Count 352, MPV 9.7, Immature Gran % (Auto) 0.400, Neut % (Auto) 73.2 H, Lymph % (Auto) 14.8 L, [place] % (Auto) 8.1, Eos % (Auto) 3.3, Baso % (Auto) 0.2, Absolute Neuts (auto) 6.1, Absolute Lymphs (auto) 1.23, Nucleated RBC % 0, Sodium 140, Potassium 3.4 L, Chloride 110 H, Carbon Dioxide 25.0, Anion Gap 5, BUN 15, Creatinine 1.06 H, Estim Creat Clear Calc 26.86, Est GFR (MDRD) Af Amer 63, Est GFR (MDRD) Non-Af 52 L, BUN/Creatinine Ratio 14.2, Glucose 104, Calcium 8.1 L, Magnesium 2.2 Micro: Microbiology 05/06/23 15:00 Blood Culture (Wb) - Anticubital Left Blood Culture - Preliminary No growth in 48 hours. 05/06/23 14:50 Blood Culture (Wb) - Anticubital Right Blood Culture - Preliminary No growth in 48 hours. 05/06/23 20:44 Mucosa - Nasopharyngeal SARS-CoV-2, Influenza & RSV (PCR) - Final Rhythm Strip Rhythm Strip: A-fib Rate: 80 Ectopy: None Physical Exam Narrative MS- Awake, alert, fluent aphasia HEENT normocephalic Eyes EOMs intact bilaterally Resp normal respiratory effort Neuro Neuro Narrative: Cranial Nerves- no clear visual field deficit although limited by aphasia, EOMI, no gaze, no facial droop Motor- Antigravity in bilateral UE and LE without drift. No pronator drift. Sensory- Responds to LT in all extremities. No obvious extinction but difficulty to test due to aphasia Subject: Neurology Subjective BEN SALAMANCA is a 87 year old F, who we are seeing in consultation today for advice on the management of stroke and related patient care. No acute ON events Assessment and Plan: Stroke Assessment/Plan This is a 87 yo F w PMH of afib not on AC, CKD, HTN, tobacco abuse, CHFpEF, PVD, fall with traumatic SDH in 2022 who presented with 3-4 days of confusion. Her exam is notable for a aphasia. Her MRI and CT demonstrate a moderate-large left temporal-parietal infarct. The etiology is cardioembolic from untreated atrial fibrillation. As her SDH was was traumatic and occurred 9 months ago with complete resolution on imaging, she is a candidate for therapeutic anticoagulation for secondary stroke prevention. Recommend starting her eliquis a week from stroke onset. Due to her age, body weight and renal function, she will require the reduced dosage after discussion with pharmacy. Diagnosis: Left MCA stroke Plan: Continue ASA 81 for now. Start Eliquis in 1 weeks (05/13) after discussing the dose with pharmacu and stop ASA at that time. Continue home atorvastatin 80 Aim normotension Smoking cessation counseling to family -LDL 34/HbA1c 5.4 -TTE pending -CTA: No significant stenosis on vessel imaging -PT/OT/WASTE REDUCTION COORDINATOR -fu with neurology in 4-6 week,
[2023-05-09 21:18] VITALS: BP 144/85; PULSE 86; RESP 16; TEMP 36.4; O2SAT 99
[2023-05-09] MEDS: Atorvastatin Calcium 80 MG Tablet PO (21:21)
[2023-05-09] MEDS: MELATONIN 3 MG TABLET PO (23:28)
[2023-05-10] VITALS (7 sets, daily range): BP systolic 116–140; BP diastolic 65–66; PULSE 71–85; RESP 16–18; TEMP 36.3–36.5; O2SAT 86–96; BMI 19.8
[2023-05-10] MEDS: Ondansetron 4 MG/2 ML Vial IV (04:06)
[2023-05-10] MEDS: 0.9% Saline Lock 10 ML Syringe IV ×2 (04:09→10:17)
[2023-05-10 08:03] LABS: Anion Gap 3 (5-15); BUN 13 mg/dL (7-18); BUN/Creat Ratio 13.2 RATIO (10-20); Calcium,Total 8.3 mg/dL (8.5-10.1); Chloride 108 mmol/L (98-107); Creatinine, Serum 0.99 mg/dL (0.55-1.02); EST Glomerular Filtration Rate 57 mL/min (>60); Est Glom Filt Rate - Afr Amer 69 mL/min (>60); Estimated Creatinine Clearance 28.76 ml/min; Glucose 120 mg/dL (74-106); Magnesium 2.2 mg/dL (1.6-2.6); Potassium 4.5 mmol/L (3.5-5.1); Sodium Level 136 mmol/L (136-145)
[2023-05-10 08:38] LABS: Phosphorus 2.4 mg/dL (2.5-4.9)
[2023-05-10] MEDS: Aspirin 81 MG TAB.CHEW PO (08:50)
[2023-05-10] MEDS: guaiFENesin 1,200 MG Tablet 1200 MG PO (08:51)
[2023-05-10] MEDS: Ensure Plus High Protein 120 ML LIQUID PO (08:51)
[2023-05-10] MEDS: Empagliflozin 10 MG Tablet PO (08:51)
[2023-05-10] MEDS: Carvedilol 25 MG Tablet PO (08:51)
[2023-05-10] MEDS: Cholecalciferol (VIT D3) 25 MCG TABLET (1,000 UNITS) PO (08:52)
[2023-05-10] MEDS: Ascorbic Acid 500 MG Tablet PO (08:52)
[2023-05-10] MEDS: Ceftriaxone 1 GM/50 ML BAG IV (10:17)
--- NOTE | 2023-05-10 10:56 | PCM.PN.REN ---
Subjective Subjective Resting in bed. No overnight events. No complaints. Objective Data Objective Data Vital Signs: Vital Signs Temp Pulse Resp BP Pulse Ox O2 Del Method O2 Flow Rate 97.5 F L 71 18 116/66 94 Nasal Cannula 1 05/10/23 09:58 05/10/23 09:58 05/10/23 09:58 05/10/23 09:58 05/10/23 09:58 05/10/23 09:58 05/10/23 09:58 Oxygen Flow Rate (L/min) 1 Oxygen Delivery Method Nasal Cannula Weight: 46.5 kg Body Mass Index (BMI) 20.0 Intake & Output: Intake and Output for Last 24 Hours 05/08/23 05/09/23 05/10/23 23:59 23:59 23:59 Intake Total 995 / 1115 1025 / 1025 Balance 995 / 1115 1025 / 1025 Medical Nutrition Assessment Dietitian: Malnutrition Criteria Met Start: 05/07/23 13:39 Freq: Status: Active Protocol: Document 05/07/23 13:39 RMA (Rec: 05/07/23 13:39 RMA [id number]) Nutrition Malnutrition Evidence of Malnutrition Exists Yes Malnutrition (moderate): Chronic Evidenced By Suboptimal Energy Intake ( Moderate),Physical Changes ( Severe) Clinical Problem Chronic Disease or Condition Related Malnutrition Etiology Moderate to Severe protein- calorie malnutrition in the context of acute on chronic disease related to inadequate oral/energy intake and increased energy expenditure Signs/Symptoms as evidenced by PO meeting less than 75% estimated nutrition needs for repletion, BMI 18.7, severe muscle wasting/fat depletion in clavicle, orbitals, face, arms , legs Status Active Problem Recommendation Dietitian Recommendations/Changes Given low BMI and signs/ symptoms of malnutrition, will liberalize diet to regular/no added salt. Consistency/texture adjustments as needed per INSURANCE COUNSELOR. Will continue 120mL ensure plus high protein 4 times per day w/ medpass. Will add 240mL ensure clear with breakfast and magic cup w / lunch and dinner as tolerated. Consider enteral nutrition support if PO established inadequate/weight declines. Lab / Micro Data 05/09/23 07:15 05/10/23 07:15 Labs: Laboratory Results - last 24 hr 05/10/23 07:15: Sodium 136, Potassium 4.5, Chloride 108 H, Carbon Dioxide 25.0, Anion Gap 3 L, BUN 13, Creatinine 0.99, Estim Creat Clear Calc 28.76, Est GFR (MDRD) Af Amer 69, Est GFR (MDRD) Non-Af 57 L, BUN/Creatinine Ratio 13.2, Glucose 120 H, Calcium 8.3 L, Phosphorus 2.4 L, Magnesium 2.2 Micro: Microbiology 05/06/23 15:00 Blood Culture (Wb) - Anticubital Left Blood Culture - Preliminary No growth in 48 hours. 05/06/23 14:50 Blood Culture (Wb) - Anticubital Right Blood Culture - Preliminary No growth in 48 hours. 05/06/23 20:44 Mucosa - Nasopharyngeal SARS-CoV-2, Influenza & RSV (PCR) - Final Rhythm Strip Rhythm Strip: A-fib Rate: 80 Ectopy: None Physical Exam Narrative Alert and oriented x3, NAD. S1, S2, RRR Lung sounds clear anteriorly. Abdomen soft, nontender No pitting edema Assessment & Plan Assessment/Plan (1) Acute kidney injury: (2) Hypokalemia: PLAN: Plan Impression/Plan: The patient is a 87-year-old woman with past history of hypertension, atrial fibrillation, pulmonary hypertension, HFpEF, and osteoporosis. She was admitted to hospital on 05/06/2023 with 4-day history of encephalopathy and aphasia. She was suddenly diagnosed with large left temporoparietal l infarct. Nephrology is following for THOMAS. - Acute kidney injury. Serum creatinine was 0.91 mg/dL as recently as 04/28/2023. Suspect THOMAS is prerenal/hemodynamic. Patient likely had poor oral intake prior to admission and was on lisinopril, furosemide and spironolactone prior to admission. Urinalysis from 05/06/2023 did not reveal any significant microscopic RBCs or WBCs. There was 1+ protein on dipstick although urine was quite concentrated with specific gravity of 1.025 which is consistent with prerenal THOMAS. Low suspicion for other causes of THOMAS at this point. Serum creatinine was 1.76 mg/dL on 05/06, and today creatinine improved to 0.99 mg/dL. Overall renal function stable and improved. Patient is nonoliguric. - Hypertension: BP is reasonably controlled on Carvedilol - Hypokalemia. Hypokalemia is likely due to prior use of diuretic and in the setting of decreased intake. Magnesium is 2.2. Potassium improved today 4.5 today. patient does not need any renal diet restrictions. - Discharge planning in progress possibly to rehab unit. Okay for discharge per renal when cleared by primary team. Recommend holding lisinopril, furosemide and Aldactone at time of discharge. Capacity Legal Shipwright Supervisor Reflex Medical hold order details:: IF a medical hold is selected below, a suggested order for a MEDICAL HOLD will reflex upon signing the document. Next of kin: [place] law dictates a PRIORITY LIST for identifying legal decision-maker/legal next of kin in the following order (LNOK): 1st: The patient?s legal guardian, if any 2nd: The patient's spouse (if status is questionable, consult Risk Management) 3rd: The patient?s adult child(isaac) (majority, if multiple children) 4th: The patient?s parents 5th: The patient?s adult siblings (majority, if multiple children siblings)
[2023-05-10] MEDS: Azithromycin 500 MG in Dextrose 5%-Water (250mL Bag) 250 ML 250 MG IV (11:03)
--- NOTE | 2023-05-10 11:27 | CASEMGMT ---
Addendum entered by Emma Walsh 05/10/23 12:02: Physician did peer to peer and patient was approved. CHAYO let Madelyn in Rehab know this information. Patient can go to Rehab. CHAYO will notify RN and patient's family. Plan: d/c to [facility] Acute Rehab Unit. Emma RED Original Note: CHAYO was informed insurance is requesting a peer to peer. Physician would need to call [phone] option 5. Physician would need patient's name, date of , and insurance ID number. SW notified physician. Emma RED
--- NOTE | 2023-05-10 12:00 | DCINST_ITS ---
Discharge Instructions Diet Discharge Diet: No restrictions Dressing / Incision Call your doctor if you observe: Fever of 101 or Higher, Shortness of breath, Dizziness, Fainting spells, Swelling in the ankles, Chest pain and Increased palpitations (irregular heartbeat) Follow Up Care Test Results: Test results from this visit will be discussed in further detail at your follow- up appointment, if applicable. Discharge Plan Admission Admit Date/Time: 05/06/23 12:33 Attending Provider: Alex Benites Primary Care Provider: Deidre Borrero Consulting Providers: Oseas Uriarte; Joya Gonzalez; Hollie Vaughan; Leora Wilhelm; Juana John; Rogelio Barajas; Daksha Sexton; Obi Ochoa; Seferino Carmen; Nohemi Gaines; Kg Reza; Yocasta Mckeon; Cassandra Schneider; Flaco Castellon; Thong Santos; Holley Robb; Donovan Hidalgo; Asuncion Mcdonald; Stefano Huston; Manuel Maldonado; Jose Sarmiento Instructions Additional Instructions / Restrictions: On 05/13/2023: Discontinue aspirin and start on Eliquis 2.5 mg p.o. twice daily per neurology's recommendations Discharge Orders/Prescriptions Prescriptions: Continued ascorbic acid (vitamin C) 500 mg capsule 500 mg PO DAILY spironolactone 25 mg tablet 25 mg PO DAILY Jardiance 10 mg tablet 10 mg PO DAILY lisinopril [Zestril] 5 mg tablet 2.5 mg PO DAILY Qty: 30 5RF furosemide [Lasix] 40 mg tablet 20 mg PO BID alendronate 35 mg tablet 35 mg PO FR Patient Comments: take 1 tablet by mouth every week IN THE MORNING 30 MINUTES befor... (REFER TO PRESCRIPTION NOTES). [id number] 1 tab PO ONCE PRN (Reason: pain) atorvastatin 80 mg tablet 80 mg PO QHS Qty: 30 0RF cholecalciferol (vitamin D3) 25 mcg (1,000 unit) capsule 25 mcg PO DAILY Qty: 30 0RF aspirin 325 mg Tablet,Delayed Release (Dr/Ec) 325 mg PO QHS donepezil 5 mg tablet 5 mg PO QHS acetaminophen [Tylenol] 325 mg capsule 325 mg PO Q6H PRN (Reason: fever or pain) olopatadine [Pataday Once Daily Relief] 0.2 % drops 1 drp EACH EYE DAILY echinacea 400 mg capsule 400 mg PO DAILY Rx Instructions: administer with meals carvedilol 25 mg tablet 25 mg PO BID Qty: 180 3RF Rx Instructions: must administer with a meal/food Referrals / Follow Up: Deidre Borrero MD [Primary Care Provider] - Disposition Disposition (needs filled in before D/C Order can be placed): Inpatient Rehab Un it/Facility
--- NOTE | 2023-05-10 12:04 | CASEMGMT ---
CHAYO notified patient's son that Acute Rehab accepted patient and insurance approved patient. CHAYO let them know patient will go today. Plan: d/c to [facility] Acute Rehab Emma RED
--- NOTE | 2023-05-10 12:21 | PN.NEURO_ITS ---
Objective Data Objective Data Vital Signs: Vital Signs Temp Pulse Resp BP Pulse Ox O2 Del Method O2 Flow Rate 97.5 F L 71 18 116/66 94 Nasal Cannula 1 05/10/23 09:58 05/10/23 09:58 05/10/23 09:58 05/10/23 09:58 05/10/23 09:58 05/10/23 09:58 05/10/23 10:20 Oxygen Flow Rate (L/min) 1 Oxygen Delivery Method Nasal Cannula Weight: 46.5 kg Body Mass Index (BMI) 20.0 Intake & Output: Intake and Output for Last 24 Hours 05/08/23 05/09/23 05/10/23 23:59 23:59 23:59 Intake Total 995 / 1115 1025 / 1025 405 / 405 Balance 995 / 1115 1025 / 1025 405 / 405 Medical Nutrition Assessment Dietitian: Malnutrition Criteria Met Start: 05/07/23 13:39 Freq: Status: Active Protocol: Document 05/07/23 13:39 RMA (Rec: 05/07/23 13:39 RMA [id number]) Nutrition Malnutrition Evidence of Malnutrition Exists Yes Malnutrition (moderate): Chronic Evidenced By Suboptimal Energy Intake ( Moderate),Physical Changes ( Severe) Clinical Problem Chronic Disease or Condition Related Malnutrition Etiology Moderate to Severe protein- calorie malnutrition in the context of acute on chronic disease related to inadequate oral/energy intake and increased energy expenditure Signs/Symptoms as evidenced by PO meeting less than 75% estimated nutrition needs for repletion, BMI 18.7, severe muscle wasting/fat depletion in clavicle, orbitals, face, arms , legs Status Active Problem Recommendation Dietitian Recommendations/Changes Given low BMI and signs/ symptoms of malnutrition, will liberalize diet to regular/no added salt. Consistency/texture adjustments as needed per IT ASSISTANT. Will continue 120mL ensure plus high protein 4 times per day w/ medpass. Will add 240mL ensure clear with breakfast and magic cup w / lunch and dinner as tolerated. Consider enteral nutrition support if PO established inadequate/weight declines. Lab / Micro Data 05/09/23 07:15 05/10/23 07:15 Labs: Laboratory Results - last 24 hr 05/10/23 07:15: Sodium 136, Potassium 4.5, Chloride 108 H, Carbon Dioxide 25.0, Anion Gap 3 L, BUN 13, Creatinine 0.99, Estim Creat Clear Calc 28.76, Est GFR (MDRD) Af Amer 69, Est GFR (MDRD) Non-Af 57 L, BUN/Creatinine Ratio 13.2, Glucose 120 H, Calcium 8.3 L, Phosphorus 2.4 L, Magnesium 2.2 Micro: Microbiology 05/06/23 15:00 Blood Culture (Wb) - Anticubital Left Blood Culture - Preliminary No growth in 48 hours. 05/06/23 14:50 Blood Culture (Wb) - Anticubital Right Blood Culture - Preliminary No growth in 48 hours. 05/06/23 20:44 Mucosa - Nasopharyngeal SARS-CoV-2, Influenza & RSV (PCR) - Final Rhythm Strip Rhythm Strip: A-fib Rate: 80 Ectopy: None Physical Exam Narrative MS- Awake, alert, fluent aphasia, paraphasic errors HEENT normocephalic Eyes EOMs intact bilaterally Resp normal respiratory effort Neuro Neuro Narrative: Cranial Nerves- no clear visual field deficit although limited by aphasia, EOMI, no gaze, no facial droop Motor- Antigravity in bilateral UE and LE without drift. No pronator drift. Sensory- Responds to LT in all extremities. No obvious extinction but difficulty to test due to aphasia Subject: Neurology Subjective BEN SALAMANCA is a 87 year old F, who we are seeing in consultation today for advice on the management of stroke and related patient care. No acute ON events. feels confused and is frustrated due to this. EEG Results Procedure Details EEG Procedure Details: \ Assessment and Plan: Stroke Assessment/Plan This is a 87 yo F w PMH of afib not on AC, CKD, HTN, tobacco abuse, CHFpEF, PVD, fall with traumatic SDH in 2022 who presented with 3-4 days of confusion. Her exam is notable for a aphasia. Her MRI and CT demonstrate a moderate-large left temporal-parietal infarct. The etiology is cardioembolic from untreated atrial fibrillation. As her SDH was was traumatic and occurred 9 months ago with complete resolution on imaging, she is a candidate for therapeutic anticoagulation for secondary stroke prevention. Recommend starting her eliquis a week from stroke onset. Diagnosis: Left MCA stroke Plan: Continue ASA 81 for now. Start Eliquis in 1 weeks (05/13) after discussing the dose with pharmacy and stop ASA at that time. Continue home atorvastatin 80 Aim normotension Smoking cessation counseling to family -LDL 34/HbA1c 5.4 -TTE EF okay, biatrial enlargement -CTA: No significant stenosis on vessel imaging -PT/OT/IT ASSISTANT -fu with neurology in 4-6 week -Thanks for the consult - I spent 25 minutes of time in evaluation and coordination of care
--- NOTE | 2023-05-10 12:22 | NURSING ---
report called to inpatient rehab nurse Peri, plan to transport after patient has eaten lunch.
--- NOTE | 2023-05-10 14:41 | PHA.DC.MR.R ---
Pharmacy [place] Med Reconciliation Pharmacy Service has performed discharge medication reconciliation for this patient. The patient's discharge medication list was reviewed for discrepancies and discrepancies were resolved. Medications at Discharge Home Medications ascorbic acid (vitamin C) 500 mg capsule 500 mg PO DAILY supp 04/19/22 atorvastatin 80 mg tablet 80 mg PO QHS cholesterol #30 tabs 08/22/22 cholecalciferol (vitamin D3) 25 mcg (1,000 unit) capsule 25 mcg PO DAILY supp #30 caps 08/22/22 aspirin 325 mg tablet,delayed release 325 mg PO QHS anticoag 08/26/22 empagliflozin 10 mg tablet (Jardiance) 10 mg PO DAILY diabetes 08/31/22 spironolactone 25 mg tablet 25 mg PO DAILY bp 08/31/22 lisinopril 5 mg tablet (Zestril) 2.5 mg (1/2 x 5 mg) PO DAILY bp #30 tabs 09/01/22 alendronate 35 mg tablet 35 mg PO FR osteoporosis 12/02/22 [id number]-LG-ftxfkjmjdnhtl 1 tab PO ONCE PRN pain 12/02/22 carvedilol 25 mg tablet 25 mg PO BID #180 tabs 02/09/23 furosemide 40 mg tablet (Lasix) 20 mg PO BID water pill 04/05/23 acetaminophen 325 mg capsule (Tylenol) 325 mg PO Q6H PRN fever or pain 05/06/23 donepezil 5 mg tablet 5 mg PO QHS memory 05/06/23 echinacea 400 mg capsule 400 mg PO DAILY dietary supplement 05/06/23 olopatadine 0.2 % eye drops (Pataday Once Daily Relief) 1 drp EACH EYE DAILY itchy eyes 05/06/23
--- NOTE | 2023-05-10 14:50 | DS.PCM_ITS ---
Providers Date of Admission: 05/06/23 Primary Care Physician: Dr. Deidre Borrero MD Consultations 05/07/23 00:10 Consult: Tele-Neurology Routine Consulting Provider: [facility] Reason for Consult: Acute Ischemic Stroke/TIA EMERGENT Consult: No Notified: Yes Date Notified: 05/06/23 Time Notified: 12:35 Method of Notification: Text Method of Consult:: Telemedicine Comments:: storke after MRI Nursing Unit Staff Notify [facility] of Tele-Neurology Consult: Yes 05/07/23 13:16 Consult: Nephrology Routine Consulting Provider: Manuel Maldonado Reason for Consult: THOMAS, LARGE stroke EMERGENT Consult: No Notified: Yes Date Notified: 05/07/23 Time Notified: 13:16 Method of Notification: ED Physician Initiated Reason For Visit: APHASIC, SUSPICION OF STROKE Diagnosis Discharge Diagnosis (1) Acute kidney injury: Status: Acute Code(s): N17.9 - Acute kidney failure, unspecified (2) Hypokalemia: Status: Acute Code(s): E87.6 - Hypokalemia Medications at Discharge Home Medications ascorbic acid (vitamin C) 500 mg capsule 500 mg PO DAILY supp 04/19/22 atorvastatin 80 mg tablet 80 mg PO QHS cholesterol #30 tabs 08/22/22 cholecalciferol (vitamin D3) 25 mcg (1,000 unit) capsule 25 mcg PO DAILY supp #30 caps 08/22/22 empagliflozin 10 mg tablet (Jardiance) 10 mg PO DAILY diabetes 08/31/22 spironolactone 25 mg tablet 25 mg PO DAILY bp 08/31/22 lisinopril 5 mg tablet (Zestril) 2.5 mg (1/2 x 5 mg) PO DAILY bp #30 tabs 09/01/22 alendronate 35 mg tablet 35 mg PO FR osteoporosis 12/02/22 [id number] 1 tab PO ONCE PRN pain 12/02/22 carvedilol 25 mg tablet 25 mg PO BID blood pressure #180 tabs 02/09/23 furosemide 40 mg tablet (Lasix) 20 mg PO BID water pill 04/05/23 acetaminophen 325 mg capsule (Tylenol) 650 mg PO Q6H PRN fever or pain 05/06/23 donepezil 5 mg tablet 5 mg PO QHS memory 05/06/23 echinacea 400 mg capsule 400 mg PO DAILY dietary supplement 05/06/23 olopatadine 0.2 % eye drops (Pataday Once Daily Relief) 1 drp EACH EYE DAILY itchy eyes 05/06/23 aspirin 81 mg chewable tablet 1 tab PO DAILY heart health 05/10/23 Hospital Course Operations None Procedures 2-D Echocardiogram Summary of Care Provided Minutes Spent on Discharge: 36 Hospital Course: Per HPI: BEN SALAMANCA, is a 87 F was brought to ED by EMS for not feeling well, confused and disoriented for 4 days. As per EMS note, her niece stated that patient was wandering in her home and she did not know where she is. Her niece lives in close neighborhood and checks her 4 times a day. During last Monday PCP visit probably her cough syrup which contains codeine was discontinued. Blood sugar was 105. In ED, patient vitals was normal, pulse irregular has chronic A-fib. Clinically suspicion of a stroke and CT scan shows left temporoparietal infarct possible subacute or chronic.Patient on aspirin 325 and atorvastatin for gram daily at home but unclear whether she is taking it because she is confused therefore aspirin and atorvastatin started in ED. Patient also has history of right rectal subdural hematoma which has resolved in the recent CT head. No evidence of acute bleed. Hospital Course: 1. Subacute/chronic left temporal parietal infarct: Patient is being admitted to PCU. And it is unclear whether patient took today's dose of aspirin or other medication but seems less likely as she is confused and disoriented lives alone but her niece lives close by neighborhood. Aspirin 81 mg 1 dose now and continue 325 mg her home dose and atorvastatin 80 mg daily. MRI brain and MRA head and neck without contrast ordered. PT, OT, speech therapy/swallow evaluation and management, nursing NIH stroke scale, BP and glucose monitoring and control as per stroke protocol. TSH, A1c fasting lipid profile tomorrow AM. 2D echo with bubble contrast study ordered 05/07: Patient is talkative, burnings aphasia but does not know what she means. She was talking on the phone. MRI brain shows a large left MCA infarct similar to the CT finding. MRI brain shows decreased number of peripheral branches of the left middle cerebral artery consistent with acute infarct but no large vessel occlusion. MRI brain shows suspected left vertebral artery occlusion but carotid arteries are patent. Nighttime hospitalist discussed with [facility] urologist and recommended aspirin 325 mg to decrease to 81 mg daily. Start blood thinner after 7 days of acute stroke, start Eliquis 2.5 mg bid from 05/13/2023. Discontinue baby aspirin when starts Eliquis so that she is not on both baby aspirin and Eliquis. Continue high intensity statin statin. No need for potline monitor. [facility] signed off but call back if new finding on ECHO like thrombus or any change in clinical status. 05/08/2023: Will start Eliquis on discharge, of note she did have a subdural and a subarachnoid hemorrhage back in July 2022 however neurology feels that she should be okay with Eliquis 05/10/2023: She is stable for discharge today will recommend starting Eliquis on 05/13/2023 at 2.5 mg p.o. twice daily at which point stop her aspirin. She will be going to the acute rehab unit here in the hospital and I recommend monitoring her renal function and adjusting her medications accordingly her home Lasix, lisinopril, and Aldactone were continued on her medical paperwork for communication purposes only however I do recommend that they be held for the next couple of days until we have a consistency in and renal function while in rehab. 2. Acute encephalopathy exact etiology unclear possible may be due to stroke/metabolic: Will try to treat underlying condition. Orientation cues. Patient is also hard of hearing. 05/07: Acute encephalopathy resolved. Most likely it was due to stroke. Patient still aphasic mainly Warnicke's aphasia. 3. History of right subdural hematoma which has resolved in the recent CT head. No evidence of acute bleed and CT head on admission. 4. Chronic heart failure with preserved ejection fraction: Patient has bilater al leg swelling. Not short of breath. Last 2D echo on May 16, 2022 EF of 55% Hold lisinopril but continue metoprolol aspirin and atorvastatin. 05/08/2023: Will hold her home blood pressure medications and allow permissive hypertension given the size of her infarct 5. THOMAS: Patient creatinine is 1.76. Baseline about 0.9 last April 28, 2023. Will give IV fluid normal saline. 05/07 continue IV fluid. Creatinine improving 1.66. Will consult nephrology. 05/09/2023: Creatinine has resolved back to baseline 6. Chronic A-fib: I do not think patient has chest pain. Twelve-lead EKG done in the ED reviewed. A-fib with PVC with aberrant conducted complexes, LAD, LVH with repolarization abnormality. Patient on verapamil 120 mg SR tablet, 2 tablets twice daily. Metoprolol 25 mg twice daily. 7. Chest x-ray infiltrate, right-sided pleural effusion, concern for pneumonia: Chest x-ray individually reviewed and shows bilateral lower lobes infiltrate worse on the right side. Moderate right pleural effusion. Patient also has cough observed in ED. Rapid flu COVID and RSV ordered. Pneumonia workup ordered. Empirically started on IV ceftriaxone. 05/09/2023: Will complete azithromycin and Rocephin today 8. History of left wrist fracture, fall and subdural hematoma from recent fall and was admitted in [facility] in July 2022 9. Dysphagia: Chronic. Speech therapy will evaluate 10. Severe protein-calorie malnutrition: Nutrition evaluation Ensure clear. 11. Other Chronic conditions * Hypertension: Hold lisinopril. * Pulmonary artery hypertension: Noted on echocardiogram. Unclear which type. Patient may benefit from a polysomnogram as outpatient. Physical Exam Narrative General: Alert, cooperative, No apparent distress HEENT: Atraumatic, PERRLA, EOMI, Normocephalic Oral: Moist Mucosa Neck: Supple, No JVD Lungs: Diminished, Normal air movement, No rhonchi, No wheeze, No rales Cardiovascular: Regular rate, irregular rhythm, Normal S1, Normal S2, No murmurs Abdomen: Soft, Non Tender, Non-Distended, No Hepato-splenomegaly Extremities: Edema, Capillary Refill Less than 3 Seconds Skin: No rashes, No breakdown Musculoskeletal: No Tenderness to Palpation of Joints or Extremities Neurological: Aphasia and dysarthria remains the same, Motor Exam 5/5 strength throughout, Sensory exam intact to light touch and pain Psych/Mental Status: Normal Affect, Appropriate Weight / BMI Weight Weight: 102 lb 8.239 oz Body Mass Index (BMI) 20.0 ABG / Lab / Microbiology Data 05/09/23 07:15 05/10/23 07:15 Laboratory: Laboratory Results - last 24 hr 05/10/23 07:15: Sodium 136, Potassium 4.5, Chloride 108 H, Carbon Dioxide 25.0, Anion Gap 3 L, BUN 13, Creatinine 0.99, Estim Creat Clear Calc 28.76, Est GFR (MDRD) Af Amer 69, Est GFR (MDRD) Non-Af 57 L, BUN/Creatinine Ratio 13.2, Glucose 120 H, Calcium 8.3 L, Phosphorus 2.4 L, Magnesium 2.2 Microbiology: Microbiology 05/06/23 15:00 Blood Culture (Wb) - Anticubital Left Blood Culture - Preliminary No growth in 48 hours. 05/06/23 14:50 Blood Culture (Wb) - Anticubital Right Blood Culture - Preliminary No growth in 48 hours. 05/06/23 20:44 Mucosa - Nasopharyngeal SARS-CoV-2, Influenza & RSV (PCR) - Final D/C Instructions Discharge Diet: No restrictions Call your doctor if you observe: Fever of 101 or Higher, Shortness of breath, Dizziness, Fainting spells, Swelling in the ankles, Chest pain and Increased palpitations (irregular heartbeat) Meaningful Use Info Meaningful Use Diagnoses (Choose all that apply): None applicable Discharge Plan Admission Admit Date/Time: 05/06/23 12:33 Attending Provider: Alex Benites Primary Care Provider: Deidre Borrero Consulting Providers: Oseas rUiarte; Joya Gonzalez; Hollie Vaughan; Leora Wilhelm; Juana John; Rogelio Barajas; Daksha Sexton; Obi Ochoa; Seferino Carmen; Nohemi Gaines; Kg Reza; Yocasta Mckeon; Cassandra Schneider; Flaco Castellon; Thong Santos; Holley Robb; Donovan Hidalgo; Asuncion Mcdonald; Stefano Huston; Manuel Maldonado; Jose Sarmiento Instructions Additional Instructions / Restrictions: On 05/13/2023: Discontinue aspirin and start on Eliquis 2.5 mg p.o. twice daily per neurology's recommendations Discharge Orders/Prescriptions Prescriptions: Continued ascorbic acid (vitamin C) 500 mg capsule 500 mg PO DAILY spironolactone 25 mg tablet 25 mg PO DAILY Jardiance 10 mg tablet 10 mg PO DAILY lisinopril [Zestril] 5 mg tablet 2.5 mg PO DAILY Qty: 30 5RF furosemide [Lasix] 40 mg tablet 20 mg PO BID alendronate 35 mg tablet 35 mg PO FR Patient Comments: take 1 tablet by mouth every week IN THE MORNING 30 MINUTES befor... (REFER TO PRESCRIPTION NOTES). [id number] 1 tab PO ONCE PRN (Reason: pain) atorvastatin 80 mg tablet 80 mg PO QHS Qty: 30 0RF cholecalciferol (vitamin D3) 25 mcg (1,000 unit) capsule 25 mcg PO DAILY Qty: 30 0RF donepezil 5 mg tablet 5 mg PO QHS acetaminophen [Tylenol] 325 mg capsule 650 mg PO Q6H PRN (Reason: fever or pain) olopatadine [Pataday Once Daily Relief] 0.2 % drops 1 drp EACH EYE DAILY echinacea 400 mg capsule 400 mg PO DAILY Rx Instructions: administer with meals carvedilol 25 mg tablet 25 mg PO BID Qty: 180 3RF Rx Instructions: must administer with a meal/food No Action aspirin 81 mg tablet,chewable 1 tab PO DAILY Referrals / Follow Up: Deidre Borrero MD [Primary Care Provider] - Disposition Disposition (needs filled in before D/C Order can be placed): Inpatient Rehab Unit/Facility Charges/Coding Visit Charges Inpatient E&M: 78150 Disch Hosp >30min
== END 2023-05-10 13:59 | DRG 64 ==
LOC: ED 12:37 → PCU 12:50
PROVIDERS: Admitting Provider Internal Medicine; Emergency Provider Emergency Medicine; PCP Family Medicine; Visit Provider Family Medicine
DX: I63.412 Cerebral infarction due to embolism of left middle cerebral artery (principal); E43 Unspecified severe protein-calorie malnutrition; I48.20 Chronic atrial fibrillation, unspecified; N17.9 Acute kidney failure, unspecified; J90 Pleural effusion, not elsewhere classified; I50.32 Chronic diastolic (congestive) heart failure; Z68.1 Body mass index [BMI] 19.9 or less, adult; I27.21 Secondary pulmonary arterial hypertension; I11.0 Hypertensive heart disease with heart failure; R47.01 Aphasia; F17.200 Nicotine dependence, unspecified, uncomplicated; R29.704 NIHSS score 4; R13.10 Dysphagia, unspecified; Z66 Do not resuscitate; Z79.82 Long term (current) use of aspirin; Z79.83 Long term (current) use of bisphosphonates; Z79.899 Other long term (current) drug therapy; Z87.820 Personal history of traumatic brain injury
CPT/HCPCS: 36415; 70450; 70544; 70547; 70551; 71046; 80048; 80053; 80061; 80076; 80307; 80320; 81001; 82962; 83036; 83735; 84100; 84443; 84484; 85025; 87040; 87631; 87641; 92507; 92523; 92526; 93005; 93306; 94640; 94668; 94762; 97162; 97166; 97530; 97535; 97802; 99252; 99285; 99406; J7030; J7040; A4216; G0463; G0480; J2405

== ENCOUNTER 2023-05-10 14:25 | Inpatient (IN) | payer MEDICARE, SELFPAY ==
[2023-05-10 15:05] VITALS: BMI 19.3
[2023-05-10 15:06] VITALS: BP 125/67; PULSE 84; RESP 16; TEMP 36.6; O2SAT 100
[2023-05-10] MEDS: Carvedilol 25 MG Tablet PO (16:51)
[2023-05-10] MEDS: Furosemide 20 MG Tablet PO (16:51)
[2023-05-10 19:22] VITALS: BP 126/59; PULSE 78; RESP 16; TEMP 36.6; O2SAT 99
[2023-05-10 21:33] LABS: Bedside Glucose 113 mg/dL (74-106)
[2023-05-10 22:00] VITALS: PULSE 73; RESP 14; O2SAT 95
[2023-05-10] MEDS: Donepezil HCl 5 MG Tablet PO (22:59)
[2023-05-10] MEDS: Senna/Docusate Sodium 1 Tablet 2 TABLET PO (22:59)
[2023-05-10] MEDS: Atorvastatin Calcium 80 MG Tablet PO (22:59)
[2023-05-10] MEDS: Acetaminophen 325 MG Tablet 650 MG PO (23:06)
[2023-05-11] MEDS: 0.9% Saline Lock 10 ML Syringe IV (04:34)
[2023-05-11 06:58] LABS: Bedside Glucose 104 mg/dL (74-106)
[2023-05-11 07:41] VITALS: O2SAT 92
[2023-05-11] MEDS: Lisinopril 2.5 MG Tablet PO (08:06)
[2023-05-11] MEDS: Empagliflozin 10 MG Tablet PO (08:07)
[2023-05-11] MEDS: Carvedilol 25 MG Tablet PO ×2 (08:07→16:55)
[2023-05-11] MEDS: Furosemide 20 MG Tablet PO ×2 (08:07→16:55)
[2023-05-11] MEDS: Cholecalciferol (VIT D3) 25 MCG TABLET (1,000 UNITS) PO (08:07)
[2023-05-11] MEDS: Senna/Docusate Sodium 1 Tablet 2 TABLET PO ×2 (08:07→21:31)
[2023-05-11] MEDS: Ascorbic Acid 500 MG Tablet PO (08:07)
[2023-05-11] MEDS: Menthol/Lanolin/Calamine/Znox 113 GM Tube 1 APPLIC TOPICAL ×2 (08:09→21:37)
[2023-05-11] MEDS: Aspirin 81 MG TAB.CHEW PO (09:37)
[2023-05-11] MEDS: Spironolactone 25 MG Tablet PO (09:37)
[2023-05-11 10:00] VITALS: BP 137/70; PULSE 82; RESP 15; TEMP 36; O2SAT 94
[2023-05-11 11:31] LABS: Bedside Glucose 78 mg/dL (74-106)
--- NOTE | 2023-05-11 15:32 | EX.PCM.HP.RE ---
[facility] - General General Date of Admission: 05/10/23 Date of Service: 05/11/23 Chief Complaint: Post stroke debility. [facility] Narrative DAYANA SALAMANCA, is a 87 F well known to me from a previous admission to acute rehab in July of this year. At that time she was admitted to acute rehab for debility secondary to intracerebral hemorrhage related to a mechanical fall. Her past medical history is significant for atrial fibrillation (not on anticoagulation as an outpatient), chronic kidney disease, hypertension, peripheral vascular disease, tobacco dependence, BL pleural effusions (serous) and a subdural hematoma/subarachnoid hemorrhage in July 2022 due to a fall. Dayana was brought to the [facility] emergency department on 05/06/2023 by EMS for complaint of not feeling well . Apparently she had been confused and disoriented for 4 days. Her niece stated that she was wandering around in her home and did not know where she was. Her niece lives close to her and checks on her a few times a day. At presentation to the emergency department her pulse was rapid and irregular and an EKG showed atrial fibrillation. A noncontrast CT brain showed left temporal parietal infarct. The previous subdural hematoma had resolved. There was no evidence of acute bleeding. She was outside the window for TNK. The hospitalist service was contacted and the patient was admitted to the progressive care unit on telemetry. MRI of the brain showed involutional changes and a large acute/subacute left middle cerebral artery ischemic infarct. MRA of the brain showed decreased number of peripheral branches of the left middle cerebral artery consistent with acute infarct but no large vessel occlusion. MRA of the neck showed no carotid stenosis and a patent right vertebral artery. The left vertebral artery was suspected to be occluded. Significant lab at admission showed an elevated creatinine at 1.76 with a BUN of 26. Baseline creatinine since September 2021 ranges from 0.9-1.11 with occasional increases secondary to illness/poor intake. A transthoracic echocardiogram showed a normal EF of 60% with mild to moderate biatrial dilatation. The bubble contrast study was negative for a right to left shunt. There was mild diffuse mitral valve thickening but no mitral stenosis. There was mild to moderate MR. The right ventricular systolic pressure was estimated to be 43 which is consistent with mild pulmonary hypertension. There was 2+ TR. Consult was obtained with teleneurology who recommended waiting 10 days from her last known well and then starting Eliquis on 05/13/2023. 2.5 mg twice daily was recommended. Neurology also recommended discontinuing aspirin when the Eliquis was started. Consult was obtained with nephrology regarding the increased creatinine. Lisinopril, furosemide and spironolactone were held at admission. She was hydrated with intravenous fluids and the creatinine improved. While in the hospital she was seen by the dietitian and diagnosed with moderate to severe protein/calorie malnutrition. Dayana was evaluated by PT/OT/ST while in the hospital and transfer to acute inpatient rehab was recommended at discharge. Dayana was discharged to the acute inpatient rehab unit at [facility] on 05/10/2023 for 3 hours of therapy daily to restore function/independence as close as possible to her level prior to the stroke. The EMR from recent visit was personally reviewed. She is to start Eliquis 2.5 mg BID on 05/13/23 and ASA will be discontinued on that day. [facility] Medical History (Updated 05/14/23 @ 14:[address] Cassandra Gerardo DO) (HFpEF) heart failure with preserved ejection fraction Bilateral pleural effusion Bilateral pleural effusion Chronic renal failure, stage 3a Chronic respiratory failure with hypoxia Dementia Diabetes mellitus type 2 in nonobese Dysphagia Fall Fracture of left radius and ulna History of ectopic HTN (hypertension) Left ventricular hypertrophy Low HDL (under 40) Moderate pulmonary hypertension Osteoporosis Peripheral vascular disease Presbycusis of both ears Subarachnoid hemorrhage Subdural hematoma Tobacco dependence Wrist fracture, left Home Medications ascorbic acid (vitamin C) 500 mg capsule 500 mg PO DAILY supp 04/19/22 [History Last Taken 05/10/23] atorvastatin 80 mg tablet 80 mg PO QHS cholesterol #30 tabs 08/22/22 [Rx Last Taken Unknown] cholecalciferol (vitamin D3) 25 mcg (1,000 unit) capsule 25 mcg PO DAILY supp #30 caps 08/22/22 [Rx Last Taken 05/10/23] empagliflozin 10 mg tablet (Jardiance) 10 mg PO DAILY diabetes 08/31/22 [History Last Taken 05/10/23] spironolactone 25 mg tablet 25 mg PO DAILY bp 08/31/22 [History Last Taken Unknown] lisinopril 5 mg tablet (Zestril) 2.5 mg (1/2 x 5 mg) PO DAILY bp #30 tabs 09/01/22 [Rx Last Taken Unknown] alendronate 35 mg tablet 35 mg PO FR osteoporosis 12/02/22 [History Last Taken Unknown] btbhvglsj-[id number]-[id number] 1 tab PO ONCE PRN pain 12/02/22 [History Last Taken Unknown] carvedilol 25 mg tablet 25 mg PO BID blood pressure #180 tabs 02/09/23 [Rx Last Taken 05/10/23] furosemide 40 mg tablet (Lasix) 20 mg PO BID water pill 04/05/23 [History Last Taken Unknown] acetaminophen 325 mg capsule (Tylenol) 650 mg PO Q6H PRN fever or pain 05/06/23 [History Last Taken Unknown] donepezil 5 mg tablet 5 mg PO QHS memory 05/06/23 [History Last Taken Unknown] echinacea 400 mg capsule 400 mg PO DAILY dietary supplement 05/06/23 [History Last Taken Unknown] olopatadine 0.2 % eye drops (Pataday Once Daily Relief) 1 drp EACH EYE DAILY itchy eyes 05/06/23 [History Last Taken Unknown] aspirin 81 mg chewable tablet 1 tab PO DAILY heart health 05/10/23 [History Last Taken Unknown] Allergy/AdvReac Type Severity Reaction Status Date / Time diphenhydramine AdvReac Intermediate Other Verified 05/06/23 09:39 [From Benadryl] Family History unable to obtain no significant family history (Dayana has told me in the past that most of her family of old age and she did not know of any history of coronary artery disease, cancer or strokes.) Surgical History H/O: hysterectomy (~1972) History of cataract surgery (~1989) Social History household members: none and other details: she has been for 20 years. housing: other details: She lives in a trailer number of children: 1 current occupational status: retired pets and animals: Yes (2 cats) pets and animals: cat(s) Smoking Status: Light Smoker (<10/day) Tobacco: How many years used: 72 counseling given: provider counseling alcohol intake: current alcohol intake frequency: 0-2 drinks per day details: She drinks a small juice glass of wine, when she has it, 4-5 days per week. substance use type: does not use what type of physical activity do you participate in: walking ROS Review of Systems ROS Unobtainable: other Details: Very limited due to acute mental status changes related to large left temporal parietal ischemic stroke. Eyes Eyes: Denies change in vision Cardiovascular Cardiovascular: Denies chest pain Respiratory/Chest Respiratory/Chest: Denies cough Gastrointestinal Gastrointestinal: Denies nausea or vomiting Genitourinary Genitourinary: Denies dysuria Neurologic Neurologic: Reports abnormal gait, abnormal speech, confusion and focal weakness; Denies headache(s) Vital Signs Vital Signs Vital Signs: 05/10/23 19:22 05/10/23 22:00 05/11/23 06:03 Temperature 97.8 F Temperature Source Temporal Pulse Rate 78 73 Respiratory Rate 16 14 Respiratory Effort Normal Non-Labored Respiratory Depth Normal Respiratory Pattern Normal Blood Pressure 126/59 H Blood Pressure Mean 81 Blood Pressure Source Monitor Blood Pressure Position Semi-Fowlers Blood Pressure Location Right Arm Pulse Ox 99 95 Oxygen Delivery Method Room Air Nasal Cannula Oxygen Flow Rate (L/min) 2 2 05/11/23 07:41 05/11/23 10:00 Temperature 96.8 F L Temperature Source Temporal Pulse Rate 82 Respiratory Rate 15 Respiratory Effort Respiratory Depth Respiratory Pattern Blood Pressure 137/70 H Blood Pressure Mean 92 Blood Pressure Source Monitor Blood Pressure Position Semi-Fowlers Blood Pressure Location Right Arm Pulse Ox 92 94 Oxygen Delivery Method Nasal Cannula Room Air Oxygen Flow Rate (L/min) 3 2 Weight Weight: 98 lb 15.801 oz Body Mass Index (BMI) 19.3 Indicators for Scoring Admitted with or Primary Diagnosis of CVA/Stroke: Yes Hx of CVA/Stroke: Yes Modified [place] Score MRS Score at time of Evaluation: 4-Moderate/severe disability NIHSS NIHSS 1a. Level of Consciousness: Alert; keenly responsive 1b. LOC Questions: Answers neither question correctly. 1c. LOC Commands: Performs neither task correctly. 2. Best Gaze: Normal 3. Visual: No visual loss 4. Facial Palsy: Normal symmetrical movements 5a. Left Arm: No drift; arm holds 90 (or 45) degrees for full 10 seconds 5b. Right Arm: No drift; arm holds 90 (or 45) degrees for full 10 seconds 6a. Left Leg: No drift; leg holds 30-degree position for full 5 seconds 6b. Right Leg: No drift; leg holds 30-degree position for full 5 seconds 7. Limb Ataxia: Absent 8. Sensory: Normal; no sensory loss 9. Best Language: Severe aphasia; 10. Dysarthria: [id number] dysarthria; 11. Extinction and Inattention: No abnormality Total: 7 Stroke Questions Stroke Team Activated: No Physical Exam Const alert Constitutional Narrative: Not even oriented to person today. Cannot tell me her name, the month, the year or where she is at. Keeps asking where am I and why am I here. Appears cachectic. General Appearance: cooperative HEENT normocephalic and head/scalp atraumatic Eyes PERRL and EOMs intact bilaterally Neck No nuchal rigidity, supple, No nodes and No no carotid bruits General: trachea midline Resp clear to auscultation bilaterally Resp Narrative: Respiratory rate is normal at rest and she is not tachypneic. She desaturates on room air with exercise and becomes tachypneic with labored respirations. Improves rapidly with application of oxygen. No crackles, wheezes or rhonchi. Able to speak in complete sentences. Auscultation: diminished lung sounds bilateral and diffuse Cardio no murmurs, no rub and no gallops Cardio Narrative: Irregular irregular heart rhythm with controlled ventricular response GI normal to inspection, nondistended, normoactive bowel sounds, soft to palpation and non-tender GI Narrative: No guarding with palpation. She has an abdominal bruit present but no pulsatile mass. Extremity no calf tenderness Extremity Narrative: Both feet are cool to the touch when compared to the more proximal leg. The toes do maricel when he elevates the leg. There is no peripheral edema. She has intact sensation in both feet. Skin no rashes or lesions noted, no wounds and no jaundice Skin Narrative: She has some skin tenting that exceeds what I would expect with age. Mucous membranes are dry. Encouraged her to increase her fluid intake and will have nursing and therapy offer her fluids frequently during the day. Neuro CN's II-XII intact bilaterally and no sensory deficits noted Neuro Narrative: Strength is symmetrical on both sides however she has generalized weakness and fatigues easily. She is unable to name any of the pictures on the stroke eval aids and is not able to Tell me what is going on in the drawing with the boy reaching into the cookie jar. She has a speech apraxia.....able to say 2 of the words I showed her but, not the others. Unable to read any of the sentences. Coordination / Balance: [id number] test normal Psych denies suicidal ideation Psych Narrative: She is frustrated and tearful at times and frequently apologizing for not being able to give me the correct answers to questions. Keeps asking where am I and why am I here. Very poor recall of any information given to her. Asks the same questions not even 1 minute after I told her she is in rehab for a stroke. Results Lab / Micro Data Labs: Laboratory Results - last 24 hr 05/10/23 21:12: POC Glucose 113 H 05/11/23 06:30: POC Glucose 104 05/11/23 11:12: POC Glucose 78 Assessment & Plan Assessment/Plan (1) Debility: (2) Acute ischemic left MCA stroke: (3) Acute encephalopathy: (4) Longstanding persistent atrial fibrillation: (5) Tobacco dependence: (6) Dementia: (7) Diabetes mellitus type 2 in nonobese: (8) Low HDL (under 40): (9) Acute kidney injury: (10) Moderate pulmonary hypertension: (11) Atherosclerosis of lower extremity with claudication: (12) Dysphagia: (13) Hyponatremia: (14) Chronic respiratory failure with hypoxia: (15) Osteoporosis: (16) Chronic renal failure, stage 3a: (17) (HFpEF) heart failure with preserved ejection fraction: (18) Presbycusis of both ears: PLAN: Plan PLAN PT for gait stability OT for ADL's ST for evaluation Analgesics as needed Bowel protocol Fall precautions Assess for Anxiety/Depression GI prophylaxis-not necessary at this time. She denies nausea/vomiting/epigastric pain/heartburn. DVT prophylaxis - holding off at this time due to the size of the stroke and risk for hemorrhagic transformation until she is started on Apixaban on 05/13/2023 per neurology. Follow up with neurology, cardiology, primary care physician, PT/OT/ST following DC from Rehab Her son plans on taking Dayana back to live with him in [place] AM lab including CMP, CBC, Mag and Phos - all personally reviewed. she is to wear oxygen any time she is working with therapy exercising. Try using the external amplifier to see if this improves ability to communicate with her.
--- NOTE | 2023-05-11 15:34 | REHABEVAL_ITS ---
Admission Information Primary Diagnosis:: Post stroke debility Status Changes from Prescreening?: No changes Identified Actual Problem List:: Falls, Skin Intergrity, Cognitve Impr/Memory Loss, Alteration in Sleep, Alteration in Nutrition, Mobility Impaired, Self Care Deficit, Alteration/ Air Exchange, Fluid Change-Dehydration and Alteration- Leisure Activ. Potential Problem List:: DVT, Bleeding, Infection, UTI, Aspiration, Falls, Skin Integrity and Depression Risk of Complications DVT: MIGDALIA Barba and - (Start apixaban 2.5 mg p.o. twice daily on 05/13/2023) Bleeding: Monitor Lab Values, Nursing to Teach Precautions for anti-coagulation therapy., Wound, if applicable, to be assessed every shift. and Stroke patients assessed for lethargy or change in status. Infection: Clinical Staff to Monitor for S/S of infection: and S/S of infection include fever, redness, warmth, etc. Urinary Tract Infection: Monitor for frequency, burning, discomfort, or incont inence. and Nursing will obtain urine sample for urinalysis and C&S when ordered. Aspiration: Clinical staff will monitor for coughing, drooling, congestion., Speech will evaluate swallowing and dsyphasia. and Nursing will monitor patient swallowing during meals. Falls: Patient will be evaluated for Fall Precautions and Patient will be placed on Fall Precautions as indicated per protocol. Skin Breakdown: Nursing will assess skin daily using assessment tool. and Nursing will place on Skin Breakdown Precautions as indicated. Pain: Clinical staff will assess patient's pain level per protocol., Medications will be given, if needed, and the pain level reassessed. and Other methods: Massage, distraction, decrease stimulus, etc. used PRN. Plan of Care Patient requires physician specializing in physical medicine and rehab oversight to provide close medical supervision of rehab issues including: Pain Management, Sleep Problems, Bowel and Bladder, Medical and co-morbidity Management, DVT prophylaxis, Rehabilitation Leadership and Coordination of treatment team Patient needs Physical Therapy: For a minimum of 1 hour and At least 5 out of 7 days Patient needs Physical Therapy to improve:: Mobility, Strengthening, Transfers, Stretching, ROM, Endurance, Stairs, Gait and Balance Patient needs Occupational Therapy: For a minimum of 1 hour and At least 5 out of 7 days Patient needs Occupational Therapy to improve ADL's incl.: Eating, Grooming, Bathing, Dressing, Toileting, Toilet transfers, Community Reintegration, Higher functioning activities, Household tasks, Adaptive Equipment, Splinting and Other activities as determined Patient requires speech therapy: For a minimum of 1 hour and At least 5 out of 7 days Patient requires speech therapy for: Swallowing, Cognition, Language Skills and Compensatory Strategies Patient requires 24/7 Rehabilitation Nursing for: Pain Issues, Identifying and preventing risk factors, Monitoring and reporting current medical conditions, Assisting with ambulation, transfer, and all ADL's, Teaching patients about disease process and medications, Family teaching, Providing safe environment, Bowel and Bladder Issues, Skin integrity and Medication Management Patient needs Corrosion Engineer/ Case Management for: Discharge Planning, Arranging Home Equipment or Services and Family Interventions Patient needs Dietary and Nutrition Services for: Adequate Nutrition, Nutritional Supplements and Nutritional Education Goals Goals Patient will remain: free from falls and or injury at time of discharge. Patient will perform bed mobility at: MOD I level of assist. Patient will complete transfers from bed to chair at: MOD I level of assist. Patient will ambulate: with LRD and - (225 feet with the least restrictive device at supervision on various surfaces to allow patient to return to home/community.) Patient will complete upper body dressing at: - (Supervision) Patient will complete lower body dressing at: - (Supervision with adaptive equipment as needed for increased independence with self-care) Patient will complete toilet transfer at: - (Supervision) Patient will complete toileting at: - (Supervision) Patient will perform bathing at: - (Upper body bathing at supervision and lower body bathing and supervision with adaptive equipment as needed for increased independence with self-care.) Patient will complete grooming at: - (Supervision while standing at the sink) Patient will complete home management skills at: MOD I level of assist. Patient will achieve: - (1 curb step and 3 steps with 2 handrails at standby assist to allow access to her home entrance.) Patient will have pain level of: of 3 or less Patient's skin will: remain intact Patient will receive: adequate nutrition. Discharge Planning Estimated Length of stay (days): 28 Anticipated D/C Destination: Home w/ family or friends Was Preadmission Assessment Accurate?: Yes
[2023-05-11] MEDS: Acetaminophen 325 MG Tablet 650 MG PO (16:22)
[2023-05-11 17:07] LABS: Bedside Glucose 86 mg/dL (74-106)
[2023-05-11 20:26] VITALS: BP 111/58; PULSE 71; RESP 18; TEMP 37.2; O2SAT 94
[2023-05-11] MEDS: Donepezil HCl 5 MG Tablet PO (21:31)
[2023-05-11] MEDS: Atorvastatin Calcium 80 MG Tablet PO (21:31)
[2023-05-11 21:59] LABS: Bedside Glucose 129 mg/dL (74-106)
[2023-05-12] MEDS: Acetaminophen 325 MG Tablet 650 MG PO (05:31)
[2023-05-12 06:00] VITALS: BMI 19.1
[2023-05-12 06:54] LABS: Bedside Glucose 89 mg/dL (74-106)
[2023-05-12 06:55] VITALS: O2SAT 96
[2023-05-12 08:03] VITALS: BP 128/63; PULSE 85; RESP 18; TEMP 36.3; O2SAT 95
[2023-05-12] MEDS: Lisinopril 2.5 MG Tablet PO (08:40)
[2023-05-12] MEDS: Furosemide 20 MG Tablet PO ×2 (08:40→17:26)
[2023-05-12] MEDS: Senna/Docusate Sodium 1 Tablet 2 TABLET PO ×2 (08:40→20:15)
[2023-05-12] MEDS: Ascorbic Acid 500 MG Tablet PO (08:41)
[2023-05-12] MEDS: Aspirin 81 MG TAB.CHEW PO (08:41)
[2023-05-12] MEDS: Menthol/Lanolin/Calamine/Znox 113 GM Tube 1 APPLIC TOPICAL ×2 (08:41→20:15)
[2023-05-12] MEDS: Empagliflozin 10 MG Tablet PO (08:41)
[2023-05-12] MEDS: Carvedilol 25 MG Tablet PO ×2 (08:41→17:26)
[2023-05-12] MEDS: Cholecalciferol (VIT D3) 25 MCG TABLET (1,000 UNITS) PO (08:41)
[2023-05-12] MEDS: Spironolactone 25 MG Tablet PO (08:41)
[2023-05-12 09:08] VITALS: O2SAT 98
[2023-05-12 13:18] LABS: Bedside Glucose 107 mg/dL (74-106)
[2023-05-12 17:07] LABS: Bedside Glucose 92 mg/dL (74-106)
[2023-05-12 19:39] VITALS: BP 118/64; PULSE 75; RESP 16; TEMP 36.9; O2SAT 94
[2023-05-12] MEDS: Donepezil HCl 5 MG Tablet PO (20:15)
[2023-05-12] MEDS: Atorvastatin Calcium 80 MG Tablet PO (20:15)
[2023-05-12 23:05] LABS: Bedside Glucose 112 mg/dL (74-106)
[2023-05-13 06:53] LABS: Bedside Glucose 84 mg/dL (74-106)
[2023-05-13 07:43] VITALS: BP 117/67; PULSE 76; RESP 18; TEMP 36.9; O2SAT 95
[2023-05-13] MEDS: Carvedilol 25 MG Tablet PO ×2 (08:14→17:56)
[2023-05-13] MEDS: Furosemide 20 MG Tablet PO ×2 (08:15→17:57)
[2023-05-13] MEDS: Empagliflozin 10 MG Tablet PO (08:15)
[2023-05-13] MEDS: APIXABAN 2.5 MG TABLET (WCH) PO ×2 (08:15→20:00)
[2023-05-13] MEDS: Senna/Docusate Sodium 1 Tablet 2 TABLET PO ×2 (08:15→20:00)
[2023-05-13] MEDS: Spironolactone 25 MG Tablet PO (08:15)
[2023-05-13] MEDS: Cholecalciferol (VIT D3) 25 MCG TABLET (1,000 UNITS) PO (08:16)
[2023-05-13] MEDS: Ascorbic Acid 500 MG Tablet PO (08:16)
[2023-05-13] MEDS: Lisinopril 2.5 MG Tablet PO (08:16)
[2023-05-13] MEDS: Menthol/Lanolin/Calamine/Znox 113 GM Tube 1 APPLIC TOPICAL ×2 (08:18→20:00)
[2023-05-13 11:44] LABS: Bedside Glucose 85 mg/dL (74-106)
[2023-05-13 17:10] LABS: Bedside Glucose 118 mg/dL (74-106)
[2023-05-13 19:50] VITALS: BP 137/56; PULSE 78; RESP 17; TEMP 37; O2SAT 95
[2023-05-13] MEDS: Donepezil HCl 5 MG Tablet PO (20:00)
[2023-05-13] MEDS: Atorvastatin Calcium 80 MG Tablet PO (20:00)
[2023-05-13 22:35] LABS: Bedside Glucose 99 mg/dL (74-106)
[2023-05-14 06:36] LABS: Bedside Glucose 91 mg/dL (74-106)
[2023-05-14 07:30] VITALS: O2SAT 97
[2023-05-14 07:34] VITALS: BP 122/90; PULSE 67; RESP 18; TEMP 36.7; O2SAT 95
[2023-05-14] MEDS: Furosemide 20 MG Tablet PO ×2 (08:08→17:03)
[2023-05-14] MEDS: Ascorbic Acid 500 MG Tablet PO (08:08)
[2023-05-14] MEDS: Senna/Docusate Sodium 1 Tablet 2 TABLET PO (08:08)
[2023-05-14] MEDS: Empagliflozin 10 MG Tablet PO (08:08)
[2023-05-14] MEDS: Lisinopril 2.5 MG Tablet PO (08:08)
[2023-05-14] MEDS: Cholecalciferol (VIT D3) 25 MCG TABLET (1,000 UNITS) PO (08:08)
[2023-05-14] MEDS: Carvedilol 25 MG Tablet PO ×2 (08:09→17:03)
[2023-05-14] MEDS: Menthol/Lanolin/Calamine/Znox 113 GM Tube 1 APPLIC TOPICAL ×2 (08:09→19:46)
[2023-05-14] MEDS: Spironolactone 25 MG Tablet PO (08:09)
[2023-05-14] MEDS: APIXABAN 2.5 MG TABLET (WCH) PO ×2 (08:09→19:45)
[2023-05-14 12:16] LABS: Bedside Glucose 85 mg/dL (74-106)
--- NOTE | 2023-05-14 13:27 | PCM.PROGNOTE ---
Subjective Subjective Afebrile VSS Maintaining appropriate oxygen saturation on RA while at rest Oral intake is good Discussed with nursing - no problems that need addressed.....yells out a lot if there is no one in the room. Reviewed the PT/OT/ST notes Medication list reviewed. Dayana denies headache, vertigo, lightheadedness, palpitations, chest pain, shortness of breath at rest, cough, nausea/vomiting/abdominal pain, dysuria and calf tenderness. She often feels as though she has to have a bowel movement and is constantly straining to push. And then the rectum prolapses again. We have a to reduce several times over the past 4 days. Family requests a surgical consult. Objective Data Objective Data Vital Signs: Vital Signs Temp Pulse Resp BP Pulse Ox O2 Del Method O2 Flow Rate 98.1 F 67 18 122/90 H 95 Room Air 2 05/14/23 07:34 05/14/23 07:34 05/14/23 07:34 05/14/23 07:34 05/14/23 07:34 05/14/23 08:15 05/12/23 12:32 Oxygen Flow Rate (L/min) 2 Oxygen Delivery Method Room Air Weight: 97 lb 10.636 oz Body Mass Index (BMI) 19.1 Intake & Output: Intake and Output for Last 24 Hours 05/12/23 05/13/23 05/14/23 23:59 23:59 23:59 Intake Total 920 / 920 840 / 840 400 / 400 Balance 920 / 920 840 / 840 400 / 400 Lab / Micro Data Labs: Laboratory Results - last 24 hr 05/13/23 16:50: POC Glucose 118 H 05/13/23 20:05: POC Glucose 99 05/14/23 06:16: POC Glucose 91 05/14/23 11:58: POC Glucose 85 Micro: Microbiology 05/12/23 18:24 Stool Stool Occult Blood (MONSE) - Final Physical Exam Const alert and no apparent distress Constitutional Narrative: Family is in room with her and she is calm and cooperative. She was able to tell her son Mike her name today. Still not remembering she is here for a stroke. General Appearance: cooperative Resp clear to auscultation bilaterally Auscultation: diminished lung sounds Cardio Cardio Narrative: Irregularly irregular rhythm with controlled ventricular response. GI normal to inspection, nondistended, normoactive bowel sounds, soft to palpation and non-tender Extremity no calf tenderness General Extremity: Negative for cyanosis or edema Neuro Neuro Narrative: I went through the pictures I use for stroke testing. She was able to read 2 out of 5 from the word list and able to say 2/5 of the phrases. She could no identify any of the pictures but she was able to give me hand when I pointed to the glove. Gets frustrated easily and then tearful and then apologizes for being so stupid . Psych Psych Narrative: Tearful at times. Does not like to be alone and is frequently yelling out for help if she is left alone in her room. Assessment & Plan Assessment/Plan (1) Debility: (2) Acute ischemic left MCA stroke: (3) Cognitive dysfunction: PLAN: Severe (4) Longstanding persistent atrial fibrillation: (5) Tobacco dependence: (6) Dementia: (7) Diabetes mellitus type 2 in nonobese: (8) Atherosclerosis of lower extremity with claudication: (9) Dysphagia: (10) Hyponatremia: (11) Chronic respiratory failure with hypoxia: (12) Chronic renal failure, stage 3a: (13) (HFpEF) heart failure with preserved ejection fraction: (14) Presbycusis of both ears: PLAN: Plan 1. Continue therapy 2. Check a BMP, magnesium, phosphorus and H&H in the a.m. 3. Start Seroquel 12.5 mg daily to help with constant yelling out Help and agitation post large stroke. 4. Start a low dose antidepressant.......Mike is agreeable to this and feels that she has been depressed even prior to the stroke. Remeron 7.5 mg q HS 5. Mike has agreed to come in for shared care this week to learn how best to assist his mother. 6. Consult Dr. Sidhu in the a.m. for recurrent rectal prolapse. Charges/Coding Visit Charges Inpatient E&M: 76588 Subs Hosp L2
[2023-05-14 15:36] VITALS: BP 128/71; PULSE 80; RESP 18; TEMP 36.3; O2SAT 98
[2023-05-14 16:54] LABS: Bedside Glucose 102 mg/dL (74-106)
[2023-05-14] MEDS: Atorvastatin Calcium 80 MG Tablet PO (19:45)
[2023-05-14] MEDS: Donepezil HCl 5 MG Tablet PO (19:45)
[2023-05-14 21:29] LABS: Bedside Glucose 87 mg/dL (74-106)
[2023-05-15 04:14] LABS: Bedside Glucose 92 mg/dL (74-106)
[2023-05-15 07:28] VITALS: BP 130/65; PULSE 77; RESP 18; TEMP 36.8; O2SAT 95
[2023-05-15] MEDS: Senna/Docusate Sodium 1 Tablet 2 TABLET PO (07:48)
[2023-05-15] MEDS: Empagliflozin 10 MG Tablet PO (07:49)
[2023-05-15] MEDS: Carvedilol 25 MG Tablet PO ×2 (07:49→17:48)
[2023-05-15] MEDS: Lisinopril 2.5 MG Tablet PO (07:49)
[2023-05-15] MEDS: APIXABAN 2.5 MG TABLET (WCH) PO ×2 (07:50→21:32)
[2023-05-15] MEDS: Spironolactone 25 MG Tablet PO (07:52)
[2023-05-15] MEDS: Ascorbic Acid 500 MG Tablet PO (07:53)
[2023-05-15] MEDS: Cholecalciferol (VIT D3) 25 MCG TABLET (1,000 UNITS) PO (07:53)
[2023-05-15] MEDS: Menthol/Lanolin/Calamine/Znox 113 GM Tube 1 APPLIC TOPICAL ×2 (07:53→21:34)
[2023-05-15] MEDS: Furosemide 20 MG Tablet PO (07:53)
[2023-05-15] MEDS: QUEtiapine 25 MG Tablet 12.5 MG PO (11:51)
[2023-05-15 12:11] LABS: Bedside Glucose 90 mg/dL (74-106)
--- NOTE | 2023-05-15 12:19 | PCM.PROGNOTE ---
Subjective Subjective Dayana was seen on team rounds today. Her niece and her son were present in the room for rounds. Afebrile VSS-blood pressure is adequately controlled. The heart rate increases from 61-96 when going from lying down to sitting up. Blood pressure did not significantly change. Maintaining appropriate oxygen saturation on RA while at rest but requires oxygen with exertion due to desaturation to less than 88%. Oral intake is good for food. She is eating 75 to 100% of her meals. Fluid intake is poor. Discussed with nursing - She was up and walking down the [place]una in the middle of the night.....she had disconnected the bed alarm. No falls. She is impulsive and has poor safety awareness. Still unable to recall where she is or why she is here. Reviewed the PT/OT/ST notes - Making good progress with PT/OT but, having a lot of cognitive dysfunction. She has severely impaired cognitive linguistic function with expressive and receptive deficits present. He also has impaired attention, orientation, repetition, word retrieval and recall. Cog log score was 7 out of 30 initially . Medication list reviewed. Her niece told she Dayana had been eating better at home recently because she has been eating her meals with Dayana. Mike said that she has been depressed in the past and he wanted to take her home with him to [place] but, Dayana did not want to leave her trailer. She has been tearful with Mike in the past and also this admission. When Dayana is alone in the room she is constantly yelling out for help. When I go in and ask what she needs she has told me she needs to go to the BR - she has been in there a few times in the past hour.....I think she just doesn't want to be alone. She keeps trying to get out of the recliner......when there is someone else in the room she is quiet and cooperative. Dayana denies lightheadedness, cephalgia, shortness of breath at rest, cough, chest pain, palpitations, nausea/vomiting/abdominal pain, burning with urination and calf tenderness. Objective Data Objective Data Vital Signs: Vital Signs Temp Pulse Resp BP Pulse Ox O2 Del Method O2 Flow Rate 98.2 F 77 18 130/65 H 95 Room Air 2 05/15/23 07:28 05/15/23 07:28 05/15/23 07:28 05/15/23 07:28 05/15/23 07:28 05/15/23 07:28 05/12/23 12:32 Oxygen Flow Rate (L/min) 2 Oxygen Delivery Method Room Air Weight: 97 lb 10.636 oz Body Mass Index (BMI) 19.1 Intake & Output: Intake and Output for Last 24 Hours 05/13/23 05/14/23 05/15/23 23:59 23:59 23:59 Intake Total 840 / 840 600 / 600 200 / 200 Output Total 200 / 200 Balance 840 / 840 600 / 600 0 / 0 Lab / Micro Data Labs: Laboratory Results - last 24 hr 05/14/23 16:36: POC Glucose 102 05/14/23 19:48: POC Glucose 87 05/15/23 03:32: POC Glucose 92 05/15/23 11:54: POC Glucose 90 Micro: Microbiology 05/12/23 18:24 Stool Stool Occult Blood (MONSE) - Final Physical Exam Const alert General Appearance: cooperative Orientation / Consciousness: confused Resp clear to auscultation bilaterally Resp Narrative: No conversational dyspnea at rest. Good appetite. and intake No cough with deep breathing. Effort and Inspection: Negative for tachypneic Auscultation: diminished lung sounds Cardio no gallops Cardio Narrative: She is in atrial fibrillation with an irregular irregular rhythm rate is adequately controlled. GI normal to inspection, nondistended, normoactive bowel sounds, soft to palpation and non-tender GI Narrative: No guarding with palpation. Extremity no calf tenderness General Extremity: Negative for edema Skin Rashes: no rashes Assessment & Plan Assessment/Plan (1) Debility: (2) Acute ischemic left MCA stroke: (3) Cognitive dysfunction: PLAN: Severe (4) Longstanding persistent atrial fibrillation: (5) Tobacco dependence: (6) Dementia: (7) Diabetes mellitus type 2 in nonobese: (8) Atherosclerosis of lower extremity with claudication: (9) Dysphagia: (10) Hyponatremia: (11) Chronic respiratory failure with hypoxia: (12) Chronic renal failure, stage 3a: (13) (HFpEF) heart failure with preserved ejection fraction: (14) Presbycusis of both ears: PLAN: Plan 1. Continue therapy 2. Check a BMP, magnesium, phosphorus and H&H in the a.m. 3. Start Seroquel 12.5 mg daily to help with constant yelling out Help and agitation post large stroke. 4. Start a low dose antidepressant.......Mike is agreeable to this and feels that she has been depressed even prior to the stroke. Remeron 7.5 mg q HS 5. Mike has agreed to come in for shared care this week to learn how best to assist his mother. Charges/Coding Visit Charges Inpatient E&M: 16739 Subs Hosp L2
[2023-05-15 12:22] VITALS: BP 118/65; BP 120/68; BP 128/55; PULSE 61; PULSE 86; PULSE 96
--- NOTE | 2023-05-15 13:44 | CASEMGMT ---
Social Work IDT met with patient, son and niece for Team meeting. Discussed patient's progress in PT/OT/ST/SN. Educated to [facility] insurance with NRD 05/16 and continued stay is not guaranteed with each review. Son explained he will be moving pt to [place] to live with son and his SO, but not until about a month after DC. SW encouraged son to begin finding pt a PCP so pt can become established upon arrival to [place] and get continued therapy or DME needs. While pt remains in [place] at DC. SW can coordinate therapy and DME. SW requested son schedule time for shared care multiple times to ensure son can care for pt at home. Son agreed. Will ReTeam weekly. SW will continue to follow for DC planning. Jeanne Saleh, CANVASSING MANAGER MAINTENANCE AND UTILITIES SUPERVISOR
[2023-05-15 15:09] VITALS: O2SAT 95
[2023-05-15 17:17] LABS: Bedside Glucose 122 mg/dL (74-106)
--- NOTE | 2023-05-15 18:46 | CON.PCM.SX_ITS ---
Assessment & Plan Assessment/Plan (1) Rectal prolapse: PLAN: Patient 87-year-old, debilitated, frail, female to whom I am consulted in the rehab unit after she recovers from a recent stroke for issues related to recurrent rectal prolapse. Unfortunately I am not able to see this issue firsthand as patient reportedly had this issue over the weekend and it was successfully reduced by Dr. Gerardo. However, patient is certainly at risk for this issue given her age, frailty, and rectal exam demonstrating some patulous tone. To date she has been on stool softeners to try to mitigate her risk for straining and I have suggested we begin some fiber as well as a bulking agent to try to further reduce her risk for prolapse. As part of her exam identify what feels to be a engorged hemorrhoid and have shared that this supplemental fiber should have a double effect for minimizing any risk of complication for this issue as well. Lastly, I have suggested that patient will ultimately require referral for consideration of surgical management of her issue. With her frailty and recovery from recent stroke, specifically, she would seem to be most optimally treated with a perineal?approach to her problem. This is not something done routinely here at [facility], but would require an outside referral. As a starting point, recommend seeking referral with colorectal surgery at [facility] in [place]. Niall Sidhu MD General Surgery Endocrine Surgery Pager: [facility] [address] [place] [address], [address] [place] [address] Office: [phone] HPI Consult Data Date of Consult: 05/15/23 HPI Narrative Reason for Consultation: Rectal prolapse HPI Narrative: BEN SALAMANCA, is a 87 F who is presently admitted to the [facility] rehab unit after suffering a stroke earlier this month and now has demonstrated multiple episodes of rectal prolapse. According to the medical record she was first admitted to the rehab floor on 05/10/2023. Bedside nursing provides much of the history as they report that Ms. Salamanca is quite confused and unable to provide much detail. They share that this past weekend was the second such episode for this rectal prolapse which was reduced by Dr. Gerardo. They state that the tissue is not presently prolapsed, but in discussing things fur ther with Dr. Gerardo it is clear that patient's son is looking to have this issue addressed if at all possible before he takes his mother to live with him in [place]. Ms. Salamanca has a history of 2 miscarriages and 1 live with her son. It is suggested that she has had recurrences of rectal prolapse outside of her immediate rehab stay. [facility] Medical History (Updated 05/15/23 @ 18:[address] Niall Sidhu MD) (HFpEF) heart failure with preserved ejection fraction Bilateral pleural effusion Bilateral pleural effusion Chronic renal failure, stage 3a Chronic respiratory failure with hypoxia Dementia Diabetes mellitus type 2 in nonobese Dysphagia Fall Fracture of left radius and ulna History of ectopic HTN (hypertension) Left ventricular hypertrophy Low HDL (under 40) Moderate pulmonary hypertension Osteoporosis Peripheral vascular disease Presbycusis of both ears Subarachnoid hemorrhage Subdural hematoma Tobacco dependence Wrist fracture, left Home Medications ascorbic acid (vitamin C) 500 mg capsule 500 mg PO DAILY supp 04/19/22 [History Last Taken 05/10/23] atorvastatin 80 mg tablet 80 mg PO QHS cholesterol #30 tabs 08/22/22 [Rx Last Taken Unknown] cholecalciferol (vitamin D3) 25 mcg (1,000 unit) capsule 25 mcg PO DAILY supp #30 caps 08/22/22 [Rx Last Taken 05/10/23] empagliflozin 10 mg tablet (Jardiance) 10 mg PO DAILY diabetes 08/31/22 [History Last Taken 05/10/23] spironolactone 25 mg tablet 25 mg PO DAILY bp 08/31/22 [History Last Taken Unknown] lisinopril 5 mg tablet (Zestril) 2.5 mg (1/2 x 5 mg) PO DAILY bp #30 tabs 09/01/22 [Rx Last Taken Unknown] alendronate 35 mg tablet 35 mg PO FR osteoporosis 12/02/22 [History Last Taken Unknown] [id number]-[id number]-bgsfcbsmjbvky 1 tab PO ONCE PRN pain 12/02/22 [History Last Taken Unknown] carvedilol 25 mg tablet 25 mg PO BID blood pressure #180 tabs 02/09/23 [Rx Last Taken 05/10/23] furosemide 40 mg tablet (Lasix) 20 mg PO BID water pill 04/05/23 [History Last Taken Unknown] acetaminophen 325 mg capsule (Tylenol) 650 mg PO Q6H PRN fever or pain 05/06/23 [History Last Taken Unknown] donepezil 5 mg tablet 5 mg PO QHS memory 05/06/23 [History Last Taken Unknown] echinacea 400 mg capsule 400 mg PO DAILY dietary supplement 05/06/23 [History Last Taken Unknown] olopatadine 0.2 % eye drops (Pataday Once Daily Relief) 1 drp EACH EYE DAILY itchy eyes 05/06/23 [History Last Taken Unknown] aspirin 81 mg chewable tablet 1 tab PO DAILY heart health 05/10/23 [History Last Taken Unknown] Allergy/AdvReac Type Severity Reaction Status Date / Time diphenhydramine AdvReac Intermediate Other Verified 05/06/23 09:39 [From Benadryl] Family History unable to obtain Surgical History H/O: hysterectomy (~1972) History of cataract surgery (~1989) Social History household members: none and other details: she has been for 20 years. housing: other details: She lives in a trailer number of children: 1 current occupational status: retired pets and animals: Yes (2 cats) pets and animals: cat(s) Smoking Status: Light Smoker (<10/day) Tobacco: How many years used: 72 counseling given: provider counseling alcohol intake: current alcohol intake frequency: 0-2 drinks per day details: She drinks a small juice glass of wine, when she has it, 4-5 days per week. substance use type: does not use what type of physical activity do you participate in: walking Physical Exam Const Constitutional Narrative: Patient appears to be oriented to person and place. She is frail appearing. She is easily frustrated when unable to come up with answers to questions General Appearance: frail GI GI Narrative: Anorectal exam was performed and externally there were no signs of prolapsing tissue. This is also the case when patient is asked to Valsalva. Digital rectal exam was performed and patient has moderately reduced tone with a patulous posterior wall. I believe I feel an engorged right anterior hemorrhoi magalys column. There is no stool nor blood in the rectal vault. Patient has significant discomfort with this exam. Lab / Micro Data Labs: Laboratory Results - last 24 hr 05/14/23 19:48: POC Glucose 87 05/15/23 03:32: POC Glucose 92 05/15/23 11:54: POC Glucose 90 05/15/23 16:54: POC Glucose 122 H Charges/Coding Visit Charges Inpatient E&M: 40872 SNF Subs L2
[2023-05-15] MEDS: Senna/Docusate Sodium 1 Tablet PO (21:32)
[2023-05-15] MEDS: Donepezil HCl 5 MG Tablet PO (21:33)
[2023-05-15] MEDS: Mirtazapine 15 MG Tablet 7.5 MG PO (21:33)
[2023-05-15] MEDS: Atorvastatin Calcium 80 MG Tablet PO (21:33)
[2023-05-15 21:58] VITALS: BP 127/70; PULSE 82; RESP 16; TEMP 36.7; O2SAT 96
[2023-05-15 22:00] VITALS: O2SAT 96
[2023-05-15] MEDS: Psyllium 1 PACKET PO (22:18)
[2023-05-15 22:46] LABS: Bedside Glucose 95 mg/dL (74-106)
[2023-05-15 22:50] VITALS: BMI 19.1
--- NOTE | 2023-05-15 23:26 | NURSING ---
Pt yelling out and not consoled by staff as staff attempts to meet all needs. Pt whimpers while staff is in room. Pt seems to ignore staff's suggestions or attempts at meeting pt's needs. Pt resumes crying/whimpering out when staff leave room.
--- NOTE | 2023-05-16 01:32 | NURSING ---
Reviewed and agree with Vincenzo MONTES, documentation and assessment charting.
--- NOTE | 2023-05-16 01:50 | NURSING ---
Collected urine and acknowledged order. Lab was unable to see acknowledged order. After much effort to get lab to find and see order, this RN placed a second urinalysis order to acknowledge again and hopefully enable lab to get an acknowledged or to start analyzing urine that straight cathed from pt. Nursing Creative Services Producer was called c/t continued issues and lab informing staff of [facility] issues this hs. Nursing Creative Services Producer arrived on floor conferring with IS. After several minutes of manipulations, the 2nd order was verified. After 45 minutes, lab still had not shown up on this pt's chart. RN called Lab and was informed that they were still having difficulty and even pt chart information was incorrect, such as room number. Lab asked if pt was in rm 405. Lab will hold the urine and Nursing Creative Services Producer will be alerted.
[2023-05-16 02:16] LABS: Bacteria 0 SEEN /hpf (None Seen); Mucous, Urine 0 SEEN /hpf (<or=2+); Red Blood Cells-Urine 0 SEEN /hpf (0-5); Squamous Epithelial Cells - UA 0 SEEN /hpf (5-10)
[2023-05-16 02:19] LABS: Color, Urine Yellow (Yellow); Glucose, Dipstick 100 mg/dl (Normal); Ketone-Dipstick Negative (Negative); Leukocyte Esterase-Dipstick 25 /ul (Negative); Nitrite-Dipstick Negative (Negative); Occult Blood-Urine Negative /ul (Negative); Protein-Dipstick Negative (Negative); Urine Bilirubin Dipstick Negative (Negative); Urine Clarity Clear (Clear); Urine Urobilinogen Normal (Normal)
[2023-05-16 02:26] LABS: White Blood Cells 0-5 SEEN /hpf (0-5)
[2023-05-16 05:52] LABS: Hematocrit 40.1 % (37-47); Hemoglobin 12.4 g/dL (12.0-15.0)
--- NOTE | 2023-05-16 06:05 | NURSING ---
0530 Patient was very anxious throughout the night. Screaming for help, instead of using call light. Educated patient on how to use call light and she kept stating I will forget. Refused to try. Patient stated she doesn't feel like shes doing what she needs to be doing, and doesn't understand why she is here. Explained to patient her schedule for therapy today, and repositioned her in bed. 0540 Patient yelling in room for help- very tearful. Kept stating I don't know whats going on 0545 Crying and yelling when lab came to draw blood 0600 Checked on patient; still very tearful and crying. Spoke with patient re: stay in rehab. Stated she understood. Shes now resting in bed with eyes closed. Will continue to monitor patient.
[2023-05-16 06:09] LABS: Bedside Glucose 102 mg/dL (74-106)
[2023-05-16 06:10] LABS: Anion Gap 2 (5-15); BUN 7 mg/dL (7-18); BUN/Creat Ratio 8.2 RATIO (10-20); Calcium,Total 8.1 mg/dL (8.5-10.1); Chloride 108 mmol/L (98-107); Creatinine, Serum 0.85 mg/dL (0.55-1.02); EST Glomerular Filtration Rate 67 mL/min (>60); Est Glom Filt Rate - Afr Amer 81 mL/min (>60); Estimated Creatinine Clearance 32.61 ml/min; Glucose 87 mg/dL (74-106); Magnesium 2.1 mg/dL (1.6-2.6); Phosphorus 2.9 mg/dL (2.5-4.9); Potassium 4.1 mmol/L (3.5-5.1); Sodium Level 141 mmol/L (136-145)
--- NOTE | 2023-05-16 06:23 | NURSING ---
pt setting off bed alarm and can be whimpering. Pt was crying out when left alone and has had staffing 1:1 in attempt to better manage mood of pt.
[2023-05-16 07:44] VITALS: BP 140/76; PULSE 90; RESP 18; TEMP 36.9; O2SAT 93
[2023-05-16] MEDS: APIXABAN 2.5 MG TABLET (WCH) PO ×2 (08:54→20:46)
[2023-05-16] MEDS: Carvedilol 25 MG Tablet PO ×2 (08:54→17:28)
[2023-05-16] MEDS: QUEtiapine 25 MG Tablet 12.5 MG PO (08:55)
[2023-05-16] MEDS: Cholecalciferol (VIT D3) 25 MCG TABLET (1,000 UNITS) PO (08:55)
[2023-05-16] MEDS: Spironolactone 25 MG Tablet PO (08:55)
[2023-05-16] MEDS: Furosemide 20 MG Tablet PO (08:55)
[2023-05-16] MEDS: Ascorbic Acid 500 MG Tablet PO (08:55)
[2023-05-16] MEDS: Senna/Docusate Sodium 1 Tablet PO ×2 (08:55→20:45)
[2023-05-16] MEDS: Lisinopril 2.5 MG Tablet PO (08:55)
[2023-05-16] MEDS: Empagliflozin 10 MG Tablet PO (08:56)
[2023-05-16] MEDS: Psyllium 1 PACKET PO ×2 (08:56→20:45)
[2023-05-16] MEDS: Menthol/Lanolin/Calamine/Znox 113 GM Tube 1 APPLIC TOPICAL ×2 (09:02→20:44)
--- NOTE | 2023-05-16 10:24 | PN_ITS ---
Subjective Subjective Afebrile VSS Maintaining appropriate oxygen saturation on RA Oral intake is good. 75 to 100% of most meals. Needs a lot of encouragement to drink water/fluids Discussed with nursing - Very impulsive. 1:1 staffing thru most of the night. Medication list reviewed. Lab from this AM was personally reviewed. Hemoglobin is stable at 12.4. Serum bicarb is 31 today, up from 25 on 05/10/2023. Creatinine is good at 0.85 with a BUN of 7. Calcium corrected for hypoalbuminemia is within normal limits. She had a urine straight cath done last night and it was nitrite negative. There were no RBCs and 0-5 WBCs were seen. There was no bacteria. Urine culture is pending. Stool for occult blood was negative recently. Continues to deny dysuria. She is frequently calling out help and wanting to go to the BR. Sometimes she urinates and other times she doesn't. At times as soon as nursing leaves the room she is yelling help me again and asks to go to the BR. Objective Data Objective Data Vital Signs: Vital Signs Temp Pulse Resp BP Pulse Ox O2 Del Method O2 Flow Rate 98.4 F 90 18 140/76 H 93 Room Air 2 05/16/23 07:44 05/16/23 07:44 05/16/23 07:44 05/16/23 07:44 05/16/23 07:44 05/16/23 07:44 05/12/23 12:32 Oxygen Flow Rate (L/min) 2 Oxygen Delivery Method Room Air Weight: 97 lb 10.636 oz Body Mass Index (BMI) 19.1 Intake & Output: Intake and Output for Last 24 Hours 05/14/23 05/15/23 05/16/23 23:59 23:59 23:59 Intake Total 600 / 600 1160 / 1280 480 / 480 Output Total 350 / 650 450 / 450 Balance 600 / 600 810 / 630 30 / 30 Lab / Micro Data 05/16/23 05:40 05/16/23 05:40 Labs: Laboratory Results - last 24 hr 05/15/23 11:54: POC Glucose 90 05/15/23 16:54: POC Glucose 122 H 05/15/23 22:05: POC Glucose 95 05/15/23 23:45: Urine Color Yellow, Urine Clarity Clear, Urine pH 6.0, Ur Specific [place] 1.010, Urine Protein Negative, Urine Glucose (UA) 100 H, Urine Ketones Negative, Urine Occult Blood Negative, Urine Nitrite Negative, Urine Bilirubin Negative, Urine Urobilinogen Normal, Ur Leukocyte Esterase 25 H, Urine RBC 0 SEEN, Urine WBC 0-5 SEEN, Ur Squamous Epith Cells 0 SEEN, Urine Bacteria 0 SEEN, Urine Mucus 0 SEEN 05/16/23 05:40: Hgb 12.4, Hct 40.1, Sodium 141, Potassium 4.1, Chloride 108 H, C arbon Dioxide 31.0, Anion Gap 2 L, BUN 7, Creatinine 0.85, Estim Creat Clear Calc 32.61, Est GFR (MDRD) Af Amer 81, Est GFR (MDRD) Non-Af 67, BUN/Creatinine Ratio 8.2 L, Glucose 87, Calcium 8.1 L, Phosphorus 2.9, Magnesium 2.1 05/16/23 05:48: POC Glucose 102 Micro: Microbiology 05/12/23 18:24 Stool Stool Occult Blood (MONSE) - Final Physical Exam Const alert Constitutional Narrative: VERY [place]. This limits our ability to communicate with her and her ability to remember what she can not hear. forgetful and impulsive. General Appearance: cooperative Resp clear to auscultation bilaterally Effort and Inspection: Negative for tachypneic Auscultation: diminished lung sounds diffuse Cardio regular rate, regular rhythm and no gallops GI normal to inspection, nondistended, normoactive bowel sounds, soft to palpation and non-tender GI Narrative: No guarding with palpation Extremity no calf tenderness General Extremity: Negative for cyanosis or edema Skin General Skin Exam: no breakdown Rashes: no rashes Assessment & Plan Assessment/Plan (1) Debility: (2) Acute ischemic left MCA stroke: (3) Cognitive dysfunction: (4) Longstanding persistent atrial fibrillation: (5) Tobacco dependence: (6) Dementia: (7) Diabetes mellitus type 2 in nonobese: (8) Atherosclerosis of lower extremity with claudication: (9) Dysphagia: (10) Chronic respiratory failure with hypoxia: (11) Chronic renal failure, stage 3a: (12) (HFpEF) heart failure with preserved ejection fraction: (13) Presbycusis of both ears: (14) Malnutrition of moderate degree: PLAN: Plan 1. Continue therapy 2. Change Accu-Cheks to twice daily, FBS and prior to supper. 3. Hold Jardiance - Has not been hypoglycemic BUT is getting close. 4. Continue to encourage increased fluid intake. She did better yesterday with encouragement. Lasix was decreased to once daily yesterday.
[2023-05-16 13:03] VITALS: BMI 19.1
[2023-05-16 17:23] LABS: Bedside Glucose 90 mg/dL (74-106)
[2023-05-16 20:30] VITALS: BP 138/65; PULSE 69; RESP 17; TEMP 37.2; O2SAT 99; BMI 19.1
[2023-05-16] MEDS: Donepezil HCl 5 MG Tablet PO (20:46)
[2023-05-16] MEDS: Mirtazapine 15 MG Tablet 7.5 MG PO (20:46)
[2023-05-16] MEDS: Atorvastatin Calcium 80 MG Tablet PO (20:51)
--- NOTE | 2023-05-17 03:34 | NURSING ---
Reviewed and agree with Mojgan MONTES, documentation and assessment charting.
[2023-05-17] MEDS: Acetaminophen 325 MG Tablet 650 MG PO ×2 (06:15→20:42)
[2023-05-17 06:45] LABS: Bedside Glucose 76 mg/dL (74-106)
[2023-05-17 07:47] VITALS: BP 132/51; PULSE 100; RESP 20; TEMP 36.4; O2SAT 94
[2023-05-17] MEDS: Spironolactone 25 MG Tablet PO (08:48)
[2023-05-17] MEDS: Lisinopril 2.5 MG Tablet PO (08:48)
[2023-05-17] MEDS: QUEtiapine 25 MG Tablet 12.5 MG PO (08:48)
[2023-05-17] MEDS: APIXABAN 2.5 MG TABLET (WCH) PO ×2 (08:48→20:39)
[2023-05-17] MEDS: Cholecalciferol (VIT D3) 25 MCG TABLET (1,000 UNITS) PO (08:49)
[2023-05-17] MEDS: Ascorbic Acid 500 MG Tablet PO (08:52)
[2023-05-17] MEDS: Furosemide 20 MG Tablet PO (08:52)
[2023-05-17] MEDS: Carvedilol 25 MG Tablet PO ×2 (08:52→17:21)
[2023-05-17] MEDS: Menthol/Lanolin/Calamine/Znox 113 GM Tube 1 APPLIC TOPICAL ×2 (08:53→20:41)
[2023-05-17 15:19] VITALS: BMI 19.1
[2023-05-17 16:52] LABS: Bedside Glucose 103 mg/dL (74-106)
[2023-05-17 20:35] VITALS: BP 152/74; PULSE 72; RESP 18; TEMP 36.4; O2SAT 96; BMI 19.1
[2023-05-17] MEDS: Donepezil HCl 5 MG Tablet PO (20:39)
[2023-05-17] MEDS: Atorvastatin Calcium 80 MG Tablet PO (20:39)
[2023-05-17] MEDS: Mirtazapine 15 MG Tablet 7.5 MG PO (20:40)
[2023-05-17] MEDS: Psyllium 1 PACKET PO (20:41)
[2023-05-17 21:00] VITALS: PULSE 72; RESP 18; O2SAT 96
[2023-05-18 06:55] LABS: Bedside Glucose 80 mg/dL (74-106)
[2023-05-18 07:18] VITALS: BP 144/80; PULSE 75; RESP 16; TEMP 36.4; O2SAT 96
[2023-05-18] MEDS: Carvedilol 25 MG Tablet PO ×2 (08:11→17:12)
[2023-05-18] MEDS: Spironolactone 25 MG Tablet PO (08:11)
[2023-05-18] MEDS: Ascorbic Acid 500 MG Tablet PO (08:11)
[2023-05-18] MEDS: Lisinopril 2.5 MG Tablet PO (08:11)
[2023-05-18] MEDS: Cholecalciferol (VIT D3) 25 MCG TABLET (1,000 UNITS) PO (08:11)
[2023-05-18] MEDS: QUEtiapine 25 MG Tablet 12.5 MG PO (08:11)
[2023-05-18] MEDS: Furosemide 20 MG Tablet PO (08:12)
[2023-05-18] MEDS: APIXABAN 2.5 MG TABLET (WCH) PO ×2 (08:12→21:13)
[2023-05-18] MEDS: Menthol/Lanolin/Calamine/Znox 113 GM Tube 1 APPLIC TOPICAL ×2 (08:19→21:14)
--- NOTE | 2023-05-18 11:29 | PN_ITS ---
Subjective Subjective Afebrile VSS Maintaining appropriate oxygen saturation on RA Oral intake is declining. 2 of her last 3 meals she consumed 25 to 49% and this morning had 50 to 74% of her breakfast. Poor fluid intake. The blood sugar record was reviewed and she has no hypoglycemia. Discussed with nursing - no problems that need addressed. Slept well, in the recliner, after midnight. Refuses to sleep in bed per nursing. Reviewed the PT/OT/ST notes Medication list reviewed. No complaints today. Denies dysuria, CP, SOB at rest, cough, N/V/abd pain. Objective Data Objective Data Vital Signs: Vital Signs Temp Pulse Resp BP Pulse Ox O2 Del Method O2 Flow Rate 97.6 F L 75 16 144/80 H 96 Room Air 2 05/18/23 07:18 05/18/23 07:18 05/18/23 07:18 05/18/23 07:18 05/18/23 07:18 05/18/23 07:18 05/12/23 12:32 Oxygen Flow Rate (L/min) 2 Oxygen Delivery Method Room Air Weight: 97 lb 10.636 oz Body Mass Index (BMI) 19.1 Intake & Output: Intake and Output for Last 24 Hours 05/16/23 05/17/23 05/18/23 23:59 23:59 23:59 Intake Total 740 / 740 1270 / 1270 Output Total 452 / 452 Balance 288 / 288 1270 / 1270 Lab / Micro Data 05/16/23 05:40 05/16/23 05:40 Labs: Laboratory Results - last 24 hr 05/17/23 16:29: POC Glucose 103 05/18/23 06:06: POC Glucose 80 Micro: Microbiology 05/15/23 23:45 Urine Catheter - Catheter Urine Culture - Final Enterococcus faecalis Presumptive C albicans 05/12/23 18:24 Stool Stool Occult Blood (MONSE) - Final Physical Exam Const alert Constitutional Narrative: VERY [place]. This limits our ability to communicate with her and her ability to remember what she can not hear. forgetful and impulsive. General Appearance: cooperative Orientation / Consciousness: confused HEENT normocephalic and head/scalp atraumatic Eyes PERRL and EOMs intact bilaterally Neck No nuchal rigidity, supple, No nodes and No no carotid bruits General: trachea midline Resp clear to auscultation bilaterally Resp Narrative: No conversational dyspnea at rest. Good appetite. and intake No cough with deep breathing. Effort and Inspection: Negative for tachypneic Auscultation: diminished lung sounds diffuse Cardio regular rate, regular rhythm and no gallops Cardio Narrative: Irregularly irregular rhythm with controlled ventricular response. GI normal to inspection, nondistended, normoactive bowel sounds, soft to palpation and non-tender GI Narrative: No guarding with palpation Extremity no calf tenderness Extremity Narrative: Both feet are cool to the touch when compared to the more proximal leg. The toes do maricel when he elevates the leg. There is no peripheral edema. She has intact sensation in both feet. General Extremity: Negative for cyanosis or edema Skin no rashes or lesions noted, no wounds and no jaundice Skin Narrative: She has some skin tenting that exceeds what I would expect with age. Mucous membranes are dry. Encouraged her to increase her fluid intake and will have nursing and therapy offer her fluids frequently during the day. General Skin Exam: no breakdown Rashes: no rashes Neuro CN's II-XII intact bilaterally and no sensory deficits noted Neuro Narrative: I reviewed the therapy notes.......making good progress. Coordination / Balance: [id number] test normal Psych denies suicidal ideation Psych Narrative: Restless at times and wanting to go to the bathroom frequently...sometimes I think this is due to wanting someone in her room. Not setting the bed alarms nearly as much as earlier in the admission. Attitude: No agitated Assessment & Plan Assessment/Plan (1) Debility: (2) Acute ischemic left MCA stroke: (3) Cognitive dysfunction: (4) Longstanding persistent atrial fibrillation: (5) Tobacco dependence: (6) Dementia: (7) Diabetes mellitus type 2 in nonobese: (8) Atherosclerosis of lower extremity with claudication: (9) Dysphagia: (10) Chronic respiratory failure with hypoxia: (11) Chronic renal failure, stage 3a: (12) (HFpEF) heart failure with preserved ejection fraction: (13) Presbycusis of both ears: (14) Malnutrition of moderate degree: PLAN: Plan 1. Continue therapy 2. Mike will plan on coming in for shared care this week. As of now the plan is for him to take her home with him at discharge from rehab. 3. Continue to monitor the blood sugars twice a day. Food intake is variable and although she has had no hypoglycemia blood sugars are on the low side. May need to discontinue Jardiance. Charges/Coding Visit Charges Inpatient E&M: 23760 Subs Hosp L2
[2023-05-18 15:45] VITALS: BMI 19.1
[2023-05-18 17:10] LABS: Bedside Glucose 95 mg/dL (74-106)
[2023-05-18 19:00] VITALS: BP 147/78; PULSE 84; RESP 18; TEMP 36.6; O2SAT 97
[2023-05-18 21:00] VITALS: PULSE 84; RESP 18; O2SAT 97; BMI 19.1
[2023-05-18] MEDS: Psyllium 1 PACKET PO (21:13)
[2023-05-18] MEDS: Mirtazapine 15 MG Tablet 7.5 MG PO (21:13)
[2023-05-18] MEDS: Atorvastatin Calcium 80 MG Tablet PO (21:14)
[2023-05-18] MEDS: Acetaminophen 325 MG Tablet 650 MG PO (21:14)
[2023-05-18] MEDS: Donepezil HCl 5 MG Tablet PO (21:14)
[2023-05-19 06:00] VITALS: BMI 19.1
[2023-05-19 06:44] LABS: Bedside Glucose 90 mg/dL (74-106)
[2023-05-19 08:10] VITALS: BP 135/71; PULSE 79; RESP 16; TEMP 36.4; O2SAT 92
[2023-05-19] MEDS: QUEtiapine 25 MG Tablet 12.5 MG PO (08:19)
[2023-05-19] MEDS: Psyllium 1 PACKET PO (08:19)
[2023-05-19] MEDS: Lisinopril 2.5 MG Tablet PO (08:19)
[2023-05-19] MEDS: Ascorbic Acid 500 MG Tablet PO (08:19)
[2023-05-19] MEDS: Carvedilol 25 MG Tablet PO ×2 (08:19→16:50)
[2023-05-19] MEDS: Spironolactone 25 MG Tablet PO (08:20)
[2023-05-19] MEDS: Menthol/Lanolin/Calamine/Znox 113 GM Tube 1 APPLIC TOPICAL ×2 (08:20→21:38)
[2023-05-19] MEDS: Cholecalciferol (VIT D3) 25 MCG TABLET (1,000 UNITS) PO (08:21)
[2023-05-19] MEDS: Furosemide 20 MG Tablet PO (08:21)
[2023-05-19] MEDS: APIXABAN 2.5 MG TABLET (WCH) PO ×2 (08:21→21:33)
[2023-05-19 08:56] VITALS: BMI 19.1
[2023-05-19] MEDS: CARBOXYMETHYLCELLULOSE SODIUM 1 DRP DROPS OPHTHALMIC (10:21)
[2023-05-19 16:47] LABS: Bedside Glucose 124 mg/dL (74-106)
[2023-05-19 20:14] VITALS: BP 124/57; PULSE 76; RESP 18; TEMP 37.1; O2SAT 95
[2023-05-19] MEDS: Mirtazapine 15 MG Tablet 7.5 MG PO (21:34)
[2023-05-19] MEDS: Donepezil HCl 5 MG Tablet PO (21:36)
[2023-05-19] MEDS: Atorvastatin Calcium 80 MG Tablet PO (21:36)
[2023-05-20 01:12] VITALS: BMI 19.1
[2023-05-20 06:21] LABS: Bedside Glucose 95 mg/dL (74-106)
[2023-05-20] MEDS: Carvedilol 25 MG Tablet PO ×2 (08:05→16:56)
[2023-05-20 08:43] VITALS: BP 156/84; PULSE 78; RESP 16; TEMP 36.2; O2SAT 96
[2023-05-20] MEDS: Spironolactone 25 MG Tablet PO (09:52)
[2023-05-20] MEDS: APIXABAN 2.5 MG TABLET (WCH) PO ×2 (09:53→20:39)
[2023-05-20] MEDS: Furosemide 20 MG Tablet PO (09:53)
[2023-05-20] MEDS: Psyllium 1 PACKET PO ×2 (09:53→20:40)
[2023-05-20] MEDS: QUEtiapine 25 MG Tablet 12.5 MG PO (09:54)
[2023-05-20] MEDS: Senna/Docusate Sodium 1 Tablet PO ×2 (09:54→20:40)
[2023-05-20] MEDS: Ascorbic Acid 500 MG Tablet PO (09:54)
[2023-05-20] MEDS: Lisinopril 2.5 MG Tablet PO (09:55)
[2023-05-20] MEDS: Cholecalciferol (VIT D3) 25 MCG TABLET (1,000 UNITS) PO (09:55)
[2023-05-20] MEDS: Menthol/Lanolin/Calamine/Znox 113 GM Tube 1 APPLIC TOPICAL ×2 (10:13→20:39)
--- NOTE | 2023-05-20 10:16 | NURSING ---
Immediately after helping pt take 10 am medications in applesauce, pt turned to trash can and vommitted up all of her medication. Pt denied feeling any nausea or discomfort.
[2023-05-20] MEDS: CARBOXYMETHYLCELLULOSE SODIUM 1 DRP DROPS OPHTHALMIC (13:10)
[2023-05-20 16:17] VITALS: BMI 19.1
[2023-05-20 16:46] LABS: Bedside Glucose 92 mg/dL (74-106)
[2023-05-20 19:43] VITALS: BP 107/58; PULSE 68; RESP 16; TEMP 36.7; O2SAT 94
[2023-05-20 19:50] VITALS: BMI 19.1
[2023-05-20] MEDS: Donepezil HCl 5 MG Tablet PO (20:38)
[2023-05-20] MEDS: Atorvastatin Calcium 80 MG Tablet PO (20:39)
[2023-05-20] MEDS: Mirtazapine 15 MG Tablet 7.5 MG PO (20:40)
[2023-05-20 22:00] VITALS: PULSE 68; RESP 15
[2023-05-21 07:05] LABS: Bedside Glucose 91 mg/dL (74-106)
[2023-05-21 07:15] VITALS: BP 157/80; PULSE 89; RESP 16; TEMP 36.3; O2SAT 93
[2023-05-21] MEDS: Carvedilol 25 MG Tablet PO ×2 (08:00→17:12)
[2023-05-21] MEDS: QUEtiapine 25 MG Tablet 12.5 MG PO (08:01)
[2023-05-21] MEDS: Spironolactone 25 MG Tablet PO (10:41)
[2023-05-21] MEDS: Furosemide 20 MG Tablet PO (10:42)
[2023-05-21] MEDS: Senna/Docusate Sodium 1 Tablet PO ×2 (10:42→22:06)
[2023-05-21] MEDS: Ascorbic Acid 500 MG Tablet PO (10:42)
[2023-05-21] MEDS: APIXABAN 2.5 MG TABLET (WCH) PO ×2 (10:42→22:07)
[2023-05-21] MEDS: Lisinopril 2.5 MG Tablet PO (10:43)
[2023-05-21] MEDS: Cholecalciferol (VIT D3) 25 MCG TABLET (1,000 UNITS) PO (10:43)
[2023-05-21] MEDS: Menthol/Lanolin/Calamine/Znox 113 GM Tube 1 APPLIC TOPICAL ×2 (11:50→22:24)
[2023-05-21 12:30] VITALS: BMI 19.1
[2023-05-21 16:45] LABS: Bedside Glucose 93 mg/dL (74-106)
[2023-05-21 19:11] VITALS: BP 132/72; PULSE 87; RESP 16; TEMP 37.1; O2SAT 92
[2023-05-21 20:23] VITALS: BMI 19.1
[2023-05-21 22:00] VITALS: PULSE 83; RESP 16; O2SAT 93
[2023-05-21] MEDS: CARBOXYMETHYLCELLULOSE SODIUM 1 DRP DROPS OPHTHALMIC (22:05)
[2023-05-21] MEDS: Donepezil HCl 5 MG Tablet PO (22:06)
[2023-05-21] MEDS: Mirtazapine 15 MG Tablet 7.5 MG PO (22:06)
[2023-05-21] MEDS: Psyllium 1 PACKET PO (22:06)
[2023-05-21] MEDS: Atorvastatin Calcium 80 MG Tablet PO (22:07)
[2023-05-22 06:44] LABS: Bedside Glucose 91 mg/dL (74-106)
[2023-05-22 07:02] VITALS: BP 144/91; PULSE 102; RESP 17; TEMP 36.6; O2SAT 95
[2023-05-22] MEDS: QUEtiapine 25 MG Tablet 12.5 MG PO (08:01)
[2023-05-22] MEDS: Ascorbic Acid 500 MG Tablet PO (08:01)
[2023-05-22] MEDS: Lisinopril 2.5 MG Tablet PO (08:01)
[2023-05-22] MEDS: Cholecalciferol (VIT D3) 25 MCG TABLET (1,000 UNITS) PO (08:02)
[2023-05-22] MEDS: APIXABAN 2.5 MG TABLET (WCH) PO ×2 (08:02→21:38)
[2023-05-22] MEDS: Furosemide 20 MG Tablet PO (08:02)
[2023-05-22] MEDS: Menthol/Lanolin/Calamine/Znox 113 GM Tube 1 APPLIC TOPICAL ×2 (08:02→21:45)
[2023-05-22] MEDS: Senna/Docusate Sodium 1 Tablet PO ×2 (08:02→21:38)
[2023-05-22] MEDS: Spironolactone 25 MG Tablet PO (08:02)
[2023-05-22] MEDS: Carvedilol 25 MG Tablet PO ×2 (08:02→17:05)
[2023-05-22] MEDS: Psyllium 1 PACKET PO (08:02)
[2023-05-22 10:13] VITALS: BMI 19.1
--- NOTE | 2023-05-22 11:51 | CASEMGMT ---
Social Work SW phoned son to follow up on outcome of shared care. Son stated it went well and feels comfortable taking pt home, even in the interim before pt moves to [place] with son. Son confirmed he does not work and will have all day to spend with her . Son stated he plans on hiring aides in [place] and have skilled HHC again. SW reiterated the importance of coordinating a PCP for pt in [place] to get all services ordered. Son expressed understanding. If pt DCs home with the need of a FWW, pt does not have one. SW to coordinate needs at time of DC. Insurance NRD 05/23. Will continue to follow. Jeanne Saleh, SUSAN PARTS FACILITATOR
--- NOTE | 2023-05-22 12:59 | CASEMGMT ---
Addendum entered by Jeanne Salhe 05/22/23 13:23: Son confirmed DC 05/24 Original Note: Social Work IDT met with patient and son via conference call for Team meeting. Discussed patient's progress in PT/OT/ST/SN. Educated to [facility] insurance with NRD 05/23 and continued stay is not guaranteed. IDT recommending setting DC date since son has confirmed he will care for pt at home. SW inquired about DC date. Son has to get transportation from cousin and will check with her but looking at 05/24. Son to confirm date with this worker. Confirmed referring to [facility] for PT/OT/ST, whom pt used prior. SW to refer to [facility] for FWW. Son to transport. SW sent referral to [facility] and [facility] via [facility]. Plan: DC home with son 05/24, [facility] PT/OT/ST, FWW Jeanne Saleh, PSYCHOLOGICAL EXAMINER GROCERY CLERK STOCKING
--- NOTE | 2023-05-22 13:10 | PN_ITS ---
Subjective Subjective Dayana was seen on team rounds today. Her son Mike participated by phone. Team came in for shared care last week and feels comfortable taking Zulema home at this point. Afebrile VSS-blood pressures have been creeping up slowly and the systolic is frequently greater than 135. The diastolic ranges from 58-83. Maintaining appropriate oxygen saturation on RA Oral intake is improving. She has eaten 75 to 100% of her last for meals. Prior to that she was doing 50 to 74%. Fluid intake is fair. Blood sugars since the have ranged from 75-95. She has had no hypoglycemia. Discussed with nursing - no problems that need addressed Reviewed the PT/OT/ST notes Medication list reviewed. Dayana denies CP, cephalgia, lightheadedness, shortness of breath at rest, nausea/vomiting/abdominal pain, burning with urination and calf pain. Objective Data Objective Data Vital Signs: Vital Signs Temp Pulse Resp BP Pulse Ox O2 Del Method O2 Flow Rate 97.9 F 102 H 17 144/91 H 95 Room Air 2 05/22/23 07:02 05/22/23 07:02 05/22/23 07:02 05/22/23 07:02 05/22/23 07:02 05/22/23 07:02 05/12/23 12:32 Oxygen Flow Rate (L/min) 2 Oxygen Delivery Method Room Air Weight: 97 lb 10.636 oz Body Mass Index (BMI) 19.1 Intake & Output: Intake and Output for Last 24 Hours 05/20/23 05/21/23 05/22/23 23:59 23:59 23:59 Intake Total 737 / 737 1160 / 1160 600 / 600 Output Total 50 / 50 Balance 687 / 687 1160 / 1160 600 / 600 Lab / Micro Data 05/16/23 05:40 05/16/23 05:40 Labs: Laboratory Results - last 24 hr 05/21/23 16:27: POC Glucose 93 05/22/23 06:22: POC Glucose 91 Micro: Microbiology 05/15/23 23:45 Urine Catheter - Catheter Urine Culture - Final Enterococcus faecalis Presumptive C albicans 05/12/23 18:24 Stool Stool Occult Blood (MONSE) - Final Physical Exam Const alert Constitutional Narrative: VERY SAULT [place]. This limits our ability to communicate with her and her ability to remember what she can not hear. forgetful and impulsive. General Appearance: cooperative HEENT head/scalp atraumatic Neck supple Resp clear to auscultation bilaterally Effort and Inspection: Negative for tachypneic Auscultation: diminished lung sounds diffuse Cardio regular rate, regular rhythm and no gallops GI normal to inspection, nondistended, normoactive bowel sounds, soft to palpation and non-tender GI Narrative: No guarding with palpation Extremity no calf tenderness General Extremity: Negative for cyanosis or edema Skin General Skin Exam: no breakdown Rashes: no rashes Psych Psych Narrative: Restless at times and wanting to go to the bathroom frequently...sometimes I think this is due to wanting someone in her room. Not setting the bed alarms nearly as much as earlier in the admission. Attitude: No agitated Assessment & Plan Assessment/Plan (1) Debility: (2) Acute ischemic left MCA stroke: (3) Cognitive dysfunction: (4) Longstanding persistent atrial fibrillation: (5) Tobacco dependence: (6) Dementia: (7) Diabetes mellitus type 2 in nonobese: (8) Atherosclerosis of lower extremity with claudication: (9) Dysphagia: (10) Chronic respiratory failure with hypoxia: (11) Chronic renal failure, stage 3a: (12) (HFpEF) heart failure with preserved ejection fraction: (13) Presbycusis of both ears: (14) Malnutrition of moderate degree: PLAN: Plan 1. Continue therapy 2. Plan on discharge home with her son Mike this week. He will let us know when he is able to secure transportation. 3. Patient is unsafe to use a cane and requires a walker for ambulation in the home and the community. 4. she is only taking Jardiance for DM and only 10 mg. I hesitate to discontinue this medication due to CAD and Stroke. She has not had any metabolic acidosis. I am going to DC the Jardiance. At the age of 87 with a hx of dementia I feel the risk of hypoglycemia outweighs the benefit. 5. Check a BMP, CBC without differential and magnesium in the a.m. Charges/Coding Visit Charges Inpatient E&M: 97347 Subs Hosp L2
--- NOTE | 2023-05-22 15:25 | CASEMGMT ---
Health And Fitness Instructor: Referral sent via [facility] to [facility] requesting OT/PT/ST for pt upon D/C. Darlin Rand. APPLICATION DEVELOPMENT INTERN
[2023-05-22 17:46] LABS: Bedside Glucose 95 mg/dL (74-106)
[2023-05-22 21:35] VITALS: BP 143/83; PULSE 100; RESP 16; TEMP 36.9; O2SAT 95; BMI 19.1
[2023-05-22] MEDS: Atorvastatin Calcium 80 MG Tablet PO (21:38)
[2023-05-22] MEDS: Donepezil HCl 5 MG Tablet PO (21:38)
[2023-05-22] MEDS: Mirtazapine 15 MG Tablet 7.5 MG PO (21:38)
[2023-05-23] MEDS: Acetaminophen 325 MG Tablet 650 MG PO (06:49)
[2023-05-23 07:18] LABS: Bedside Glucose 75 mg/dL (74-106)
[2023-05-23 08:00] VITALS: BP 151/74; PULSE 85; RESP 16; TEMP 36.2; O2SAT 94
[2023-05-23] MEDS: CARBOXYMETHYLCELLULOSE SODIUM 1 DRP DROPS OPHTHALMIC (08:05)
[2023-05-23] MEDS: Carvedilol 25 MG Tablet PO ×2 (08:05→17:12)
[2023-05-23] MEDS: Lisinopril 2.5 MG Tablet PO ×2 (08:06→20:13)
[2023-05-23] MEDS: Ascorbic Acid 500 MG Tablet PO (08:06)
[2023-05-23] MEDS: Cholecalciferol (VIT D3) 25 MCG TABLET (1,000 UNITS) PO (08:06)
[2023-05-23] MEDS: Furosemide 20 MG Tablet PO (08:06)
[2023-05-23] MEDS: Senna/Docusate Sodium 1 Tablet PO ×2 (08:06→20:11)
[2023-05-23] MEDS: Spironolactone 25 MG Tablet PO (08:07)
[2023-05-23] MEDS: Menthol/Lanolin/Calamine/Znox 113 GM Tube 1 APPLIC TOPICAL ×2 (08:08→20:09)
[2023-05-23] MEDS: APIXABAN 2.5 MG TABLET (WCH) PO ×2 (08:08→20:11)
[2023-05-23] MEDS: QUEtiapine 25 MG Tablet 12.5 MG PO (08:09)
[2023-05-23] MEDS: Psyllium 1 PACKET PO (08:09)
[2023-05-23 11:42] LABS: Hematocrit 39.4 % (37-47); Hemoglobin 11.8 g/dL (12.0-15.0); Mean Corp Hgb Conc 29.9 g/dL (32-36); Mean Corpuscular Volume 93.4 fL (81-99); Mean Platelet Vol. 10.2 fl (6.2-12.0); Platelet Count 258 K/mm3 (150-450); RBC Distribution Width CV 17.9 % (11.6-14.6); RBC Distribution Width SD 60.8 fl (35.1-43.9); Red Blood Count 4.22 M/mm3 (4.2-5.4)
[2023-05-23 11:43] VITALS: BMI 19.1
[2023-05-23 12:05] LABS: Anion Gap 1 (5-15); BUN 13 mg/dL (7-18); Calcium,Total 8.7 mg/dL (8.5-10.1); Chloride 108 mmol/L (98-107); EST Glomerular Filtration Rate 41 mL/min (>60); Est Glom Filt Rate - Afr Amer 50 mL/min (>60); Estimated Creatinine Clearance 21.32 ml/min; Glucose 112 mg/dL (74-106); Magnesium 2.3 mg/dL (1.6-2.6); Potassium 4.6 mmol/L (3.5-5.1); Sodium Level 142 mmol/L (136-145)
--- NOTE | 2023-05-23 15:55 | PCM.DC ---
Discharge Instructions Diet Discharge Diet: Low fat / Low cholesterol Activity Discharge Activity: May Not Drive and Use Walker (or cane) Weight Bearing Status: Full weight bearing Dressing / Incision Call your doctor if you observe: Fever of 101 or Higher, Inability to urinate, Inability to have a bowel movement (the goal is for you to have 1 or 2 soft BM's daily to prevent the rectum from prolapsing. If you are having more than that skip a dose or 2 of the stool softer (Metamucil and Senna). ener ), Dizziness, Fainting spells, Swelling in the ankles, Chest pain, Calf discomfort and - (STROKE symptoms: facial droop, slurred speech, inability to get words out, weakness on 1 side of the body and not the other, numbness on 1 side of the body and not the other, inability to maintain your balance sitting or standing, vertigo. ) Follow Up Care Please Follow Up With: Deidre Borrero MD When: 05/30/2023. Will also need to follow-up with neurology. Follow up with Dr. Sidhu if rectal prolapse continues to be a problem. He will likely refer to a colorectal surgeon. Test Results: Test results from this visit will be discussed in further detail at your follow-up appointment, if applicable. Pending Tests Upon Discharge: none Discharge Plan Admission Admit Date/Time: 05/10/23 14:25 Primary Reason for Your Visit: Post stroke debility Attending Provider: Cassandra Gerardo Primary Care Provider: Deidre Borrero Consulting Providers: Niall Sidhu Instructions Patient Instructions: Discharge Instructions for Stroke, ED Rectal Prolapse Additional Instructions / Restrictions: 1. Your blood sugars are well controlled and I stopped the Jardiance. Jardiance does help to prevent decrease risk for strokes and heart attacks but, at your age it will likely not make a significant difference in your prognosis. You blood sugar has been as low as 75 when we check it and that is on no medication for diabetes. 2. The dose of Lasix that you were taking was decreased because you keep getting dehydrated. Try to drink at least 1 liter of fluids a day. I left you on a low dose of the Lasix because you have chronic kidney disease and you need the Lasix to make the kidney work. 3. You had a stroke because you have a problem with the rhythm of your heart called atrial fibrillation or AFIB. The heart can back little blood clots when you are having this problem and then the clots go to the brain and cause strokes. You will now be taking a blood thinner called Apixaban twice a day to prevent the little clots from forming. When you are taking a blood thinner your blood will take longer to clot. If you are having bleeding from the rectum, nose or mouth call your PCP for instructions. 4. If you have any questions after leaving rehab please do not hesitate to call me. OFFICE: [phone] NURSES STATION: [phone] Discharge Orders/Prescriptions Prescriptions: New atorvastatin 80 mg Tablet 80 mg PO QHS Qty: 30 0RF carvedilol 25 mg Tablet 25 mg PO BIDCM Qty: 60 0RF cholecalciferol (vitamin D3) 25 mcg (1,000 unit) Tablet 25 mcg PO DAILY Qty: 30 0RF furosemide 20 mg Tablet 20 mg PO DAILY Qty: 30 0RF apixaban 2.5 mg tablet 2.5 mg PO BID Qty: 60 0RF mirtazapine 15 mg Tablet 7.5 mg PO QHS Qty: 30 0RF sennosides-docusate sodium 8.6-50 mg capsule 1 tab-cap PO BID PRN (Reason: constipation) Qty: 60 0RF Daily Fiber (psyllium-aspart) 3 gram Powder In Packet 1 packet PO BID Qty: 60 0RF lisinopril 5 mg tablet 5 mg PO DAILY Qty: 30 0RF Continued ascorbic acid (vitamin C) 500 mg capsule 500 mg PO DAILY alendronate 35 mg tablet 35 mg PO FR Patient Comments: take 1 tablet by mouth every week IN THE MORNING 30 MINUTES befor... (REFER TO PRESCRIPTION NOTES). donepezil 5 mg tablet 5 mg PO QHS acetaminophen [Tylenol] 325 mg capsule 650 mg PO Q6H PRN (Reason: fever or pain) olopatadine [Pataday Once Daily Relief] 0.2 % drops 1 drp EACH EYE DAILY aspirin 81 mg tablet,chewable 1 tab PO DAILY Discontinued spironolactone 25 mg tablet 25 mg PO DAILY Jardiance 10 mg tablet 10 mg PO DAILY lisinopril [Zestril] 5 mg tablet 2.5 mg PO DAILY Qty: 30 5RF furosemide [Lasix] 40 mg tablet 20 mg PO BID [id number] 1 tab PO ONCE PRN (Reason: pain) atorvastatin 80 mg tablet 80 mg PO QHS Qty: 30 0RF cholecalciferol (vitamin D3) 25 mcg (1,000 unit) capsule 25 mcg PO DAILY Qty: 30 0RF echinacea 400 mg capsule 400 mg PO DAILY Rx Instructions: administer with meals carvedilol 25 mg tablet 25 mg PO BID Qty: 180 3RF Rx Instructions: must administer with a meal/food Referrals / Follow Up: Deidre Borrero MD [Primary Care Provider] - 05/30/23 1:30 pm Disposition Disposition (needs filled in before D/C Order can be placed): Home Health Service
[2023-05-23 15:58] VITALS: BP 145/58; BP 152/62; BP 163/66; PULSE 70; PULSE 77; PULSE 87
[2023-05-23 16:06] VITALS: O2SAT 91
[2023-05-23 16:25] VITALS: BMI 18.0
[2023-05-23 16:41] LABS: Bedside Glucose 113 mg/dL (74-106)
[2023-05-23] MEDS: 0.9% Saline Lock 10 ML Syringe IV (19:24)
[2023-05-23] MEDS: 0.9% Normal Saline (1000mL) 1,000 ML 125 ML IV (19:25)
[2023-05-23 19:45] VITALS: PULSE 71; RESP 18; O2SAT 99; BMI 18.0
[2023-05-23 20:01] VITALS: BP 121/51; PULSE 71; RESP 18; TEMP 36.9; O2SAT 99
[2023-05-23] MEDS: Atorvastatin Calcium 80 MG Tablet PO (20:11)
[2023-05-23] MEDS: Mirtazapine 15 MG Tablet 7.5 MG PO (20:11)
[2023-05-23] MEDS: Donepezil HCl 5 MG Tablet PO (20:12)
--- NOTE | 2023-05-23 20:22 | NURSING ---
2000 urine obtained for urea nitrogen, creatinine, and complete ua as per order. specimen was a catheter specimen and pt tolerated procedure fair .
[2023-05-23 20:30] LABS: Bacteria 0 SEEN /hpf (None Seen); Mucous, Urine 0 SEEN /hpf (<or=2+); Red Blood Cells-Urine 0 SEEN /hpf (0-5); Squamous Epithelial Cells - UA 0 SEEN /hpf (5-10); White Blood Cells 0 SEEN /hpf (0-5)
[2023-05-23 20:32] LABS: Color, Urine Yellow (Yellow); Glucose, Dipstick Normal (Normal); Ketone-Dipstick Negative (Negative); Leukocyte Esterase-Dipstick Negative /ul (Negative); Nitrite-Dipstick Negative (Negative); Occult Blood-Urine Negative /ul (Negative); Protein-Dipstick Negative (Negative); Specific Gravity, Urine 1.015 (1.002-1.030); Urine Bilirubin Dipstick Negative (Negative); Urine Clarity Clear (Clear); Urine Urobilinogen Normal (Normal)
[2023-05-23 20:42] LABS: Urea Nitrogen, Urine 321 mg/dL (NO RANGE EST.)
--- NOTE | 2023-05-24 00:02 | NURSING ---
pt calling out and not using the call light like she had a night ago, very anxious regarding the iv tubing wanting to know what to do with it . up to the br almost every hour to void or have a bm. staff gave reassurance with little effect. call light in reach
[2023-05-24] MEDS: 0.9% Normal Saline (1000mL) 1,000 ML 125 ML IV (02:48)
[2023-05-24 06:22] LABS: Anion Gap 2 (5-15); BUN 12 mg/dL (7-18); BUN/Creat Ratio 13.2 RATIO (10-20); Chloride 110 mmol/L (98-107); Creatinine, Serum 0.91 mg/dL (0.55-1.02); EST Glomerular Filtration Rate 62 mL/min (>60); Est Glom Filt Rate - Afr Amer 76 mL/min (>60); Estimated Creatinine Clearance 28.69 ml/min; Glucose 81 mg/dL (74-106); Sodium Level 141 mmol/L (136-145)
[2023-05-24 07:37] VITALS: BP 151/68; PULSE 80; RESP 18; TEMP 36.8
[2023-05-24] MEDS: Ascorbic Acid 500 MG Tablet PO (08:52)
[2023-05-24] MEDS: Carvedilol 25 MG Tablet PO (08:52)
[2023-05-24] MEDS: QUEtiapine 25 MG Tablet 12.5 MG PO (08:52)
[2023-05-24] MEDS: APIXABAN 2.5 MG TABLET (WCH) PO (08:52)
[2023-05-24] MEDS: Lisinopril 2.5 MG Tablet PO (08:52)
[2023-05-24] MEDS: Cholecalciferol (VIT D3) 25 MCG TABLET (1,000 UNITS) PO (08:52)
[2023-05-24] MEDS: Furosemide 20 MG Tablet PO (08:53)
--- NOTE | 2023-05-24 08:57 | EX.DISCHREH ---
Providers Date of Admission: 05/10/23 Date of Discharge: 05/24/23 Primary Care Physician: Dr. Deidre Borrero MD Consultations 05/15/23 16:27 Consult: General Surgery Routine Consulting Provider: Niall Sidhu Reason for Consult: Rectal prolapse EMERGENT Consult: No MD Notified: Yes Date Notified: 05/15/23 Time Notified: 16:27 Method of Notification: Text Reason For Visit: STROKE Diagnosis Discharge Diagnosis (1) Debility: Status: Acute Code(s): R53.81 - Other malaise (2) Acute ischemic left MCA stroke: Status: Acute Code(s): I63.512 - Cerebral infarction due to unspecified occlusion or stenosis of left middle cerebral artery Plan: EMBOLIC (3) Cognitive dysfunction: Status: Acute Code(s): F09 - Unspecified mental disorder due to known physiological condition Plan: Acute cognitive dysfunction secondary to stroke on chronic cognitive dysfunction secondary to dementia. (4) Longstanding persistent atrial fibrillation: Status: Chronic Code(s): I48.11 - Longstanding persistent atrial fibrillation Plan: Not on anticoagulation at the time of the stroke. She is being discharged on apixaban 2.5 mg twice daily. Hemoglobin has been stable. (5) Tobacco dependence: Status: Chronic Code(s): F17.200 - Nicotine dependence, unspecified, uncomplicated Plan: Smoking cessation counseling given. (6) Dementia: Status: Suspected Code(s): F03.90 - Unspecified dementia, unspecified severity, without behavioral disturbance, psychotic disturbance, mood disturbance, and anxiety Qualifiers: Dementia behavioral or psychological symptom: with other behavioral disturbance Dementia severity: moderate Dementia type: unspecified type Qualified Code(s): F03.B18 - Unspecified dementia, moderate, with other behavioral disturbance (7) Diabetes mellitus type 2 in nonobese: Status: Acute Code(s): E11.9 - Type 2 diabetes mellitus without complications Plan: Controlled on no diabetic drugs at the time of DC from acute rehab. (8) Atherosclerosis of lower extremity with claudication: Status: Chronic Code(s): I70.219 - Atherosclerosis of [place] arteries of extremities with intermittent claudication, unspecified extremity (9) Dysphagia: Status: Acute Code(s): R13.10 - Dysphagia, unspecified Qualifiers: Dysphagia type: oropharyngeal phase Qualified Code(s): R13.12 - Dysphagia, oropharyngeal phase (10) Chronic respiratory failure with hypoxia: Status: Chronic Code(s): J96.11 - Chronic respiratory failure with hypoxia Plan: When admitted to rehab she would desaturate into the 70 % range with any activity. Lung function improved with smoking cessation while on rehab and She no longer needed oxygen with exertion. I suspect if she starts smoking again when she goes home she will start having desaturations again and may qualify for oxygen at that time. (11) Chronic renal failure, stage 3a: Status: Acute Code(s): N18.31 - Chronic kidney disease, stage 3a (12) (HFpEF) heart failure with preserved ejection fraction: Status: Chronic Code(s): I50.30 - Unspecified diastolic (congestive) heart failure Qualifiers: Heart failure chronicity: chronic Qualified Code(s): I50.32 - Chronic diastolic (congestive) heart failure (13) Presbycusis of both ears: Status: Acute Code(s): H91.13 - Presbycusis, bilateral Plan: Would benefit from hearing aids. Very difficult to communicate with her when she can not hear. This increases confusion. (14) Malnutrition of moderate degree: Status: Acute Code(s): E44.0 - Moderate protein-calorie malnutrition Plan: Started on Remeron 7.5 mg for depression/anxiety and to stimulate appetite and promote sleep. Food intake is now 75-100% of meals. (15) Depression: Status: Acute Code(s): F32.A - Depression, unspecified Qualifiers: Depression Type: reactive depression Qualified Code(s): F32.9 - Major depressive disorder, single episode, unspecified Plan: Doing well on Remeron 7.5 mg Q HS at [place]. Appetite much improved. Plan 1. [place] home with son Mike. 2. [facility] at [place] for OT/PT/ST. 3. No smoking 4. Continue the Remeron for at least 6 months. [place]. Medications at Discharge Home Medications ascorbic acid (vitamin C) 500 mg capsule 500 mg PO DAILY supp 04/19/22 alendronate 35 mg tablet 35 mg PO FR osteoporosis 12/02/22 acetaminophen 325 mg capsule (Tylenol) 650 mg PO Q6H PRN fever or pain 05/06/23 donepezil 5 mg tablet 5 mg PO QHS memory 05/06/23 olopatadine 0.2 % eye drops (Pataday Once Daily Relief) 1 drp EACH EYE DAILY itchy eyes 05/06/23 aspirin 81 mg chewable tablet 1 tab PO DAILY heart health 05/10/23 apixaban 2.5 mg tablet 2.5 mg PO BID #60 tabs 05/24/23 atorvastatin 80 mg tablet 80 mg PO QHS #30 tabs 05/24/23 carvedilol 25 mg tablet 25 mg PO BIDCM #60 tabs 05/24/23 cholecalciferol (vitamin D3) 25 mcg (1,000 unit) tablet 25 mcg PO DAILY #30 tabs 05/24/23 furosemide 20 mg tablet 20 mg PO DAILY #30 tabs 05/24/23 lisinopril 5 mg tablet 5 mg PO DAILY #30 tabs 05/24/23 mirtazapine 15 mg tablet 7.5 mg (1/2 x 15 mg) PO QHS #30 tabs 05/24/23 psyllium husk (aspartame) 3 gram oral powder packet (Daily Fiber (psyllium-aspartame)) 1 packet PO BID #60 ea 05/24/23 sennosides 8.6 mg-docusate sodium 50 mg capsule 1 tab-cap PO BID PRN constipation #60 caps 05/24/23 Hospital Course Operations None Procedures None Summary of Care Provided Minutes Spent on Discharge: 40 Hospital Course: BEN SALAMANCA, is a 87 F well known to me from a previous admission to acute rehab in July of this year. At that time she was admitted to acute rehab for debility secondary to intracerebral hemorrhage related to a mechanical fall. Her past medical history is significant for atrial fibrillation (not on anticoagulation as an outpatient), chronic kidney disease, hypertension, peripheral vascular disease, tobacco dependence, BL pleural effusions (serous) and a subdural hematoma/subarachnoid hemorrhage in July 2022 due to a fall. Ben was brought to the [facility] emergency department on 05/06/2023 by EMS for complaint of not feeling well . Apparently she had been confused and disoriented for 4 days. Her niece stated that she was wandering around in her home and did not know where she was. Her niece lives close to her and checks on her a few times a day. At presentation to the emergency department her pulse was rapid and irregular and an EKG showed atrial fibrillation. A noncontrast CT brain showed left temporal parietal infarct. The previous subdural hematoma had resolved. There was no evidence of acute bleeding. She was outside the window for TNK. The hospitalist service was contacted and the patient was admitted to the progressive care unit on telemetry. MRI of the brain showed involutional changes and a large acute/subacute left middle cerebral artery ischemic infarct. MRA of the brain showed decreased number of peripheral branches of the left middle cerebral artery consistent with acute infarct but no large vessel occlusion. MRA of the neck showed no carotid stenosis and a patent right vertebral artery. The left vertebral artery was suspected to be occluded. Significant lab at admission showed an elevated creatinine at 1.76 with a BUN of 26. Baseline creatinine since September 2021 ranges from 0.9-1.11 with occasional increases secondary to illness/poor intake. A transthoracic echocardiogram showed a normal EF of 60% with mild to moderate biatrial dilatation. The bubble contrast study was negative for a right to left shunt. There was mild diffuse mitral valve thickening but no mitral stenosis. There was mild to moderate MR. The right ventricular systolic pressure was estimated to be 43 which is consistent with mild pulmonary hypertension. There was 2+ TR. Consult was obtained with teleneurology who recommended waiting 10 days from her last known well and then starting Eliquis on 05/13/2023. 2.5 mg twice daily was recommended. Neurology also recommended discontinuing aspirin when the Eliquis was started. Consult was obtained with nephrology regarding the increased creatinine. Lisinopril, furosemide and spironolactone were held at admission. She was hydrated with intravenous fluids and the creatinine improved. While in the hospital she was seen by the dietitian and diagnosed with moderate to severe protein/calorie malnutrition. Ben was evaluated by PT/OT/ST while in the hospital and transfer to acute inpatient rehab was recommended at discharge. Ben was discharged to the acute inpatient rehab unit at [facility] on 05/10/2023 for 3 hours of therapy daily to restore function/independence as close as possible to her level prior to the stroke. Ben was quite confused at presentation to rehab. she could not remember to use the call light when she needed help and she was constantly sitting off the bed alarm and pressure alarm on the chair. She is very hard of hearing and does not always understand what is being said to her. This contributes to confusion. She was constipated and we had recurrent problems with rectal prolapse. She was placed on stool softeners so that she would not have to push with attempts to have a BM. Stool became more liquid. She was seen during her admission by Dr. Sidhu from general surgery and he suggested adding Metamucil to her drug regimen to keep the stool soft but still have some form to it. This helped and I did not have to reduce the prolapse the last 10 days she was on rehab. Appetite and intake were quite decreased at presentation to rehab and she was diagnosed with malnutrition by the lactation coordinator. She was very tearful at times. She was started on Remeron 7.5 mg Q HS. She has done well on this dose. Appetite and intake are good at [place] and she is also sleeping well at night. HGB was stable the entire time she was on rehab. It was 11.8 at [place]. Creatinine was variable according to her level of intake and we did have to administer IV fluids on 05/23/2023 for a metabolic alkalosis. The creatinine dropped from 1.3-0.91 with hydration and that is within her baseline. Calcium corrected for hypoalbuminemia was within normal limits. Magnesium was consistently above 2. Potassium was 4.0 at discharge. Prior to discharge her son Mike came in for shared care and felt competent that he would be able to care for her at home. His plan is to pack up her trailer and have Ben move home with him to the [facility]. Ben was agreeable to this. At the time of discharge she was supervision/set up for eating and required only minimal assistance with grooming. She is also supervision/set up for bathing, Upper body dressing and lower body dressing. She is standby assist for tub/shower transfer. She is supervision or independent with toilet hygiene per nursing. She still requires moderate assistance with donning her shoes. She has ambulated up to 100 feet on various surfaces with a front wheeled walker at contact-guard assist/standby assist. She is standby assist/contact-guard assist with going from sitting to standing but requires maximum cues for hand placement and safety awareness when going to sit. She was able to do 5 sit to stands in 30 seconds prior to discharge. She is able to do two 6 inch steps and three 4 inch steps with 2 handrails at contact-guard assist at the time of discharge. The modified Lebeau score at discharge was 3, down from 4 at admission to rehab. I think Ben would benefit greatly from hearing aids because I think part of the confusion is she is not able to understand what is being said to her. She is still impulsive and has poor safety awareness at the time of discharge and requires 24/7 supervision. Poor memory continues to be a big problem for Ben. Ben was discharged home with her son Mike on 05/24/2023. She will have home health care by [facility] health agency. A repeat overnight trending pulse ox was done prior to discharge and she does not require oxygen any longer. When she first presented to rehab she would desaturate into the 70 to 80% range with even minimal exertion. I suspect if she goes back to smoking she will start to desaturate with activity again. Smoking cessation counselling was given a number of times during her stay on rehab. Physical Exam Const alert Constitutional Narrative: VERY CROW. This limits our ability to communicate with her and her ability to remember what she can not hear. forgetful and impulsive. General Appearance: cooperative HEENT head/scalp atraumatic Neck supple Resp clear to auscultation bilaterally Effort and Inspection: Negative for tachypneic Auscultation: diminished lung sounds diffuse Cardio regular rate, regular rhythm and no gallops GI normal to inspection, nondistended, normoactive bowel sounds, soft to palpation and non-tender GI Narrative: No guarding with palpation Extremity no calf tenderness General Extremity: Negative for cyanosis or edema Skin General Skin Exam: no breakdown Rashes: no rashes Psych Psych Narrative: Restless at times and wanting to go to the bathroom frequently...sometimes I think this is due to wanting someone in her room. Not setting the bed alarms nearly as much as earlier in the admission. Attitude: No agitated Weight / BMI Weight Weight: 92 lb Body Mass Index (BMI) 18.0 ABG / Lab / Microbiology Data 05/23/23 11:33 05/24/23 05:32 Laboratory: Laboratory Results - last 24 hr 05/23/23 11:33: WBC 7.0, RBC 4.22, Hgb 11.8 L, Hct 39.4, MCV 93.4, MCH 28.0, MCHC 29.9 L, RDW Std Deviation 60.8 H, RDW Coeff of Jenny 17.9 H, Plt Count 258, MPV 10.2, Sodium 142, Potassium 4.6, Chloride 108 H, Carbon Dioxide 33.0 H, Anion Gap 1 L, BUN 13, Creatinine 1.30 H, Estim Creat Clear Calc 21.32, Est GFR (MDRD) Af Amer 50 L, Est GFR (MDRD) Non-Af 41 L, BUN/Creatinine Ratio 10.0, Glucose 112 H, Calcium 8.7, Magnesium 2.3 05/23/23 16:24: POC Glucose 113 H 05/23/23 20:00: Urine Color Yellow, Urine Clarity Clear, Urine pH 6.0, Ur Specific Rayne 1.015, Urine Protein Negative, Urine Glucose (UA) Normal, Urine Ketones Negative, Urine Occult Blood Negative, Urine Nitrite Negative, Urine Bilirubin Negative, Urine Urobilinogen Normal, Ur Leukocyte Esterase Negative, Urine RBC 0 SEEN, Urine WBC 0 SEEN, Ur Squamous Epith Cells 0 SEEN, Urine Bacteria 0 SEEN, Urine Mucus 0 SEEN, Urine Creatinine 53.40, Urine Urea Nitrogen 321 05/24/23 05:32: Sodium 141, Potassium 4.0, Chloride 110 H, Carbon Dioxide 29.0, Anion Gap 2 L, BUN 12, Creatinine 0.91, Estim Creat Clear Calc 28.69, Est GFR (MDRD) Af Amer 76, Est GFR (MDRD) Non-Af 62, BUN/Creatinine Ratio 13.2, Glucose 81, Calcium 8.0 L Microbiology: Microbiology 05/15/23 23:45 Urine Catheter - Catheter Urine Culture - Final Enterococcus faecalis Presumptive C albicans 05/12/23 18:24 Stool Stool Occult Blood (MONSE) - Final Indicators for Scoring Admitted with or Primary Diagnosis of CVA/Stroke: Yes Hx of CVA/Stroke: Yes Modified Lebeau Score MRS Score at time of Evaluation: 3-Moderate disability NIHSS NIHSS 1a. Level of Consciousness: Alert; keenly responsive 1b. LOC Questions: Answers BOTH questions correctly. 1c. LOC Commands: Performs one task correctly. 2. Best Gaze: Normal 3. Visual: No visual loss 4. Facial Palsy: Normal symmetrical movements 5a. Left Arm: No drift; arm holds 90 (or 45) degrees for full 10 seconds 5b. Right Arm: No drift; arm holds 90 (or 45) degrees for full 10 seconds 6a. Left Leg: No drift; leg holds 30-degree position for full 5 seconds 6b. Right Leg: No drift; leg holds 30-degree position for full 5 seconds 7. Limb Ataxia: Absent 8. Sensory: Normal; no sensory loss 9. Best Language: Kkur-pd-[id number] aphasia; 10. Dysarthria: Fyda-fq-okfmyjls dysarthria; 11. Extinction and Inattention: No abnormality Total: 3 Stroke Questions Stroke Team Activated: No D/C Instructions Discharge Diet: Low fat / Low cholesterol Weight Bearing Status: Full weight bearing Call your doctor if you observe: Fever of 101 or Higher, Inability to urinate, Inability to have a bowel movement (the goal is for you to have 1 or 2 soft BM's daily to prevent the rectum from prolapsing. If you are having more than that skip a dose or 2 of the stool softer (Metamucil and Senna). ener ), Dizziness, Fainting spells, Swelling in the ankles, Chest pain, Calf discomfort and - (STROKE symptoms: facial droop, slurred speech, inability to get words out, weakness on 1 side of the body and not the other, numbness on 1 side of the body and not the other, inability to maintain your balance sitting or standing, vertigo. ) Pending Tests Upon Discharge: none Please Follow Up With: Deidre Borrero MD When: 05/30/2023. Will also need to follow-up with neurology. Follow up with Dr. Sidhu if rectal prolapse continues to be a problem. He will likely refer to a colorectal surgeon. Meaningful Use Info Meaningful Use Diagnoses (Choose all that apply): Ischemic CVA CVA Therapy Assessed for PT,OT and/or ST?: Yes Ischemic Stroke Antithrombotic order at d/c?: Yes Dx of Atrial fib/flutter?: Yes Anticoagulant at discharge?: Yes Statins at discharge?: Yes Primary Dx Acute Ischemic CVA?: Yes IV thrombolytic ordered during stay?: No Reason IV thrombolytic not ordered: Treatment not Indicated Discharge Plan Admission Admit Date/Time: 05/10/23 14:25 Primary Reason for Your Visit: Post stroke debility Attending Provider: Cassandra Gerardo Primary Care Provider: Deidre Borrero Consulting Providers: Niall Sidhu Instructions Patient Instructions: Discharge Instructions for Stroke, ED Rectal Prolapse Additional Instructions / Restrictions: 1. Your blood sugars are well controlled and I stopped the Jardiance. Jardiance does help to prevent decrease risk for strokes and heart attacks but, at your age it will likely not make a significant difference in your prognosis. You blood sugar has been as low as 75 when we check it and that is on no medication for diabetes. 2. The dose of Lasix that you were taking was decreased because you keep getting dehydrated. Try to drink at least 1 liter of fluids a day. I left you on a low dose of the Lasix because you have chronic kidney disease and you need the Lasix to make the kidney work. 3. You had a stroke because you have a problem with the rhythm of your heart called atrial fibrillation or AFIB. The heart can back little blood clots when you are having this problem and then the clots go to the brain and cause strokes. You will now be taking a blood thinner called Apixaban twice a day to prevent the little clots from forming. When you are taking a blood thinner your blood will take longer to clot. If you are having bleeding from the rectum, nose or mouth call your PCP for instructions. 4. When you first came to rehab you were getting very short of breath with even minimal exertion. The oxygen in your blood would drop to 71% (normal is > 90%). We had to keep oxygen on you with any activity. Since you have been on rehab (for 2 weeks) and not smoking your lung function has improved and you no longer need oxygen when you exert yourself. If you start smoking again you may need to have oxygen when you are walking. I strongly advise you not to smoke. 5. If you have any questions after leaving rehab please do not hesitate to call me. OFFICE: [phone] NURSES STATION: [phone] Discharge Orders/Prescriptions Prescriptions: New atorvastatin 80 mg Tablet 80 mg PO QHS Qty: 30 0RF carvedilol 25 mg Tablet 25 mg PO BIDCM Qty: 60 0RF cholecalciferol (vitamin D3) 25 mcg (1,000 unit) Tablet 25 mcg PO DAILY Qty: 30 0RF furosemide 20 mg Tablet 20 mg PO DAILY Qty: 30 0RF apixaban 2.5 mg tablet 2.5 mg PO BID Qty: 60 0RF mirtazapine 15 mg Tablet 7.5 mg PO QHS Qty: 30 0RF sennosides-docusate sodium 8.6-50 mg capsule 1 tab-cap PO BID PRN (Reason: constipation) Qty: 60 0RF Daily Fiber (psyllium-aspart) 3 gram Powder In Packet 1 packet PO BID Qty: 60 0RF lisinopril 5 mg tablet 5 mg PO DAILY Qty: 30 0RF Continued ascorbic acid (vitamin C) 500 mg capsule 500 mg PO DAILY alendronate 35 mg tablet 35 mg PO FR Patient Comments: take 1 tablet by mouth every week IN THE MORNING 30 MINUTES befor... (REFER TO PRESCRIPTION NOTES). donepezil 5 mg tablet 5 mg PO QHS acetaminophen [Tylenol] 325 mg capsule 650 mg PO Q6H PRN (Reason: fever or pain) olopatadine [Pataday Once Daily Relief] 0.2 % drops 1 drp EACH EYE DAILY aspirin 81 mg tablet,chewable 1 tab PO DAILY Discontinued spironolactone 25 mg tablet 25 mg PO DAILY Jardiance 10 mg tablet 10 mg PO DAILY lisinopril [Zestril] 5 mg tablet 2.5 mg PO DAILY Qty: 30 5RF furosemide [Lasix] 40 mg tablet 20 mg PO BID [id number] 1 tab PO ONCE PRN (Reason: pain) atorvastatin 80 mg tablet 80 mg PO QHS Qty: 30 0RF cholecalciferol (vitamin D3) 25 mcg (1,000 unit) capsule 25 mcg PO DAILY Qty: 30 0RF echinacea 400 mg capsule 400 mg PO DAILY Rx Instructions: administer with meals carvedilol 25 mg tablet 25 mg PO BID Qty: 180 3RF Rx Instructions: must administer with a meal/food Referrals / Follow Up: Deidre Borrero MD [Primary Care Provider] - 05/30/23 1:30 pm Disposition Disposition (needs filled in before D/C Order can be placed): Home Health Service Charges/Coding Visit Charges Inpatient E&M: 24198 Disch Hosp >30min
--- NOTE | 2023-05-24 09:06 | CASEMGMT ---
Social Work requesting O2 testing for exertion. Testing concluded pt was WNL. updated and CHAYO offered to add SN to [facility] order to monitor. agreed. CHAYO phoned son to update. CHAYO updated [facility] with updated order. Jeanne Saleh, [employer] SERVICE TECHNICIAN
[2023-05-24 11:36] VITALS: BP 122/54; PULSE 80; RESP 18; TEMP 36.8; O2SAT 91
--- NOTE | 2023-05-24 11:38 | NURSING ---
discharged home with son. discharge instructions, medications and appointments reviewed with pt and family. denies questions or concerns
[2023-05-24 11:39] VITALS: BMI 18.0
[2023-05-24 21:12] LABS: Bedside Glucose 76 mg/dL (74-106)
== END 2023-05-24 11:20 | disposition home health service (06) | DRG 57 ==
PROVIDERS: Admitting Provider Internal Medicine; PCP Family Medicine; Referring Provider Internal Medicine; Visit Provider Internal Medicine
DX: I69.318 Other symptoms and signs involving cognitive functions following cerebral infarction (principal); E44.0 Moderate protein-calorie malnutrition; F03.B18 Unspecified dementia, moderate, with other behavioral disturbance; I13.0 Hypertensive heart and chronic kidney disease with heart failure and stage 1 through stage 4 chronic kidney disease, or unspecified chronic kidney disease; N17.9 Acute kidney failure, unspecified; J96.11 Chronic respiratory failure with hypoxia; I50.32 Chronic diastolic (congestive) heart failure; I48.11 Longstanding persistent atrial fibrillation; Z68.1 Body mass index [BMI] 19.9 or less, adult; I27.20 Pulmonary hypertension, unspecified; E11.22 Type 2 diabetes mellitus with diabetic chronic kidney disease; N18.31 Chronic kidney disease, stage 3a; E11.51 Type 2 diabetes mellitus with diabetic peripheral angiopathy without gangrene; F32.A Depression, unspecified; F17.200 Nicotine dependence, unspecified, uncomplicated; K62.3 Rectal prolapse; Z79.84 Long term (current) use of oral hypoglycemic drugs; Z79.83 Long term (current) use of bisphosphonates; R13.12 Dysphagia, oropharyngeal phase; Z79.82 Long term (current) use of aspirin; Z79.899 Other long term (current) drug therapy
CPT/HCPCS: 36415; 80048; 81001; 82274; 82570; 82962; 83735; 84100; 84540; 85014; 85018; 85027; 87077; 87086; 87088; 87186; 92507; 92523; 92610; 97110; 97112; 97116; 97129; 97130; 97162; 97166; 97530; 97535; 97802; J7030; A4216

== ENCOUNTER 2023-06-02 03:30 | Emergency (ER) | payer MEDICARE, SELFPAY ==
[2023-06-02 03:31] VITALS: BP 167/135; PULSE 104; RESP 26; TEMP 36.6; O2SAT 93; O2SAT 97
[2023-06-02 03:39] VITALS: O2SAT 92
--- OUTSIDE RECORDS SUMMARY | 2023-06-02 04:00 | XMS RPT_ITS | CCD ---
Author Name Unknown Address [address] [place] [address] Organization [facility] Care Team Providers Care [employer] Equipment Operator Name Role Phone Sourav VICTORIA, Chauncey Primary Care Provider LEANN, RATHNA Referring Unavailable [facility] Primary Care Unavailable LEANN, RATHNA Referring Unavailable [facility] Primary Care Unavailable LEANN, RATHNA Admitting Unavailable LEANN, RATHNA Attending Unavailable KARTHIK COLON Referring Unavailable [facility] Primary Care Unavailable JOSE MARIA LYN Consulting Unavailable ORLY VIZCAINO Consulting Unavailable LEANN, RATHNA Referring Unavailable [facility] Primary Care Unavailable LEANN, RATHNA Referring Unavailable [facility] Primary Care Unavailable LEANN, RATHNA Referring Unavailable [facility] Primary Care Unavailable LEANN, RATHNA Referring Unavailable [facility] Primary Care Unavailable ZION HILLMAN Attending Unavailable [facility] Primary Care Unavailable ZION HILLMAN Attending Unavailable [facility] Primary Care Unavailable CAMPOS GARDUNO Referring Unavailable [facility] Primary Care Unavailable Allergies Allergy Classification Reported Allergen(s) Allergy Type Date of Onset Reaction(s) Facility (8 sources) diphenhydrAMINE Drug Allergy 05-03-2022 Other [facility] (8 sources) pine bark extract Drug Allergy 08-05-2022 [facility] (3 sources) Pseudoephedrine Drug Allergy 09-15-2022 [facility] Medications Current Medications Medication Drug Class(es) Dates [...] loss of consciousness status unknown, initial encounter ([facility]); Translations: [Traumatic subdural hemorrhage with loss of consciousness status unknown, initial encounter ([facility])] Onset: 09-15-2022 Past or Other Problems Problem Classification Problem Date Documented Date Episodic/Chronic Unclassified (1 source) Traumatic subdural hemorrhage with loss of consciousness status unknown, initial encounter ([facility]); Translations: [Traumatic subdural hemorrhage with loss of consciousness status unknown, initial encounter ([facility])] Onset: 09-15-2022 Results Test Name Value Interpretation Reference Range Facil ity Vital Signs Date Time Vital Sign Value Performing Clinician Faci lity 11-01-2022 10:20-0400 Body height 152.4 cm Zion Hillman MD Work Phone: [facility] 11-01-2022 10:20-0400 Body mass index (BMI) [Ratio] 14.06 kg/m2 Zion Hillman MD Work Phone: [facility] 11-01-2022 10:20-0400 Body temperature 97.7 [degF] Zion Hillman MD Work Phone: [facility] 11-01-2022 10:20-0400 Body weight 32.66 kg Zion Hillman MD Work Phone: [facility] 11-01-2022 10:20-0400 Diastolic blood pressure 73 mm[Hg] Zion Hillman MD Work Phone: [facility] 11-01-2022 10:20-0400 Heart rate 96 /min Zion Hillman MD Work Phone: [facility] 11-01-2022 10:20-0400 Respiratory rate 16 /min Zion Hillman MD Work Phone: [facility] 11-01-2022 10:20-0400 Systolic blood pressure 107 mm[Hg] Zion Hillman MD Work Phone: [facility] 08-11-2022 14:03-0400 Body temperature 98.2 [degF] Rolan Noriega MD Work Phone: [facility] 08-11-2022 14:03-0400 Diastolic blood pressure 78 mm[Hg] Rolan Noriega MD Work Phone: [facility] 08-11-2022 14:03-0400 Heart rate 114 /min Rolan Noriega MD Work Phone: [facility] 08-11-2022 14:03-0400 Respiratory rate 16 /min Rolan Noriega MD Work Phone: [facility] 08-11-2022 14:03-0400 SaO2% (BldA) [Mass fraction] 95 % Rolan Noriega MD Work Phone: [facility] 08-11-2022 14:03-0400 Systolic blood pressure 129 mm[Hg] Rolan Noriega MD Work Phone: [facility] 08-07-2022 10:07-0400 Body height 152.4 cm Rolan Noriega MD Work Phone: [facility] 08-06-2022 14:39-0400 Body mass index (BMI) [Ratio] 17.77 kg/m2 Rolan Noriega MD Work Phone: [facility] 08-06-2022 14:39-0400 Body weight 41.28 kg Rolan Noriega MD Work Phone: [facility] Encounters Encounter Date Encounter Type Care Provider Facility Start: 11-01-2022 End: 11-01-2022 ambulatory ZION HILLMAN [facility] Start: 11-01-2022 End: 11-01-2022 Office outpatient visit 15 minutes Zion Hillman MD Work Phone: [facility] Procedures Date Procedure Procedure Detail [...] ast 12 lds i&r only Amisha A Micaela DO Work Phone: Start: 08-07-2022 Cul bact [...] Basic metabolic pane l calcium total Annabelle Bbo MD Work Phone: Start: 08-05-2022 End: 08-05-2022 Ecg routine ecg w/least 12 lds i&r only Annabelle Bob MD Work Phone: Plan of Treatment Date Care Activity Detail Author Start: 12-23-2022 Influenza vaccination [facility] Start: 11-01-2022 End: 11-01-2022 Patient encounter procedure 11/01/2022 10:15 AM EDT Office Visit [address] [id number] Zion Hillman MD [address] [place] [id number] [facility] Start: 09-16-2000 Pneumococcal Vaccine: 65+ Years (1 - PCV) Pneumococcal Vaccine: 65+ Years (1 - PCV) [facility] Start: 09-16-1985 Zoster Vaccines (1 of 2) Zoster Vaccines (1 of 2) [facility] Start: 09-16-1954 DTaP/Tdap/Td Vaccines (1 - Tdap) DTaP/Tdap/Td Vaccines (1 - Tdap) [facility] Start: 09-16-1954 Hepatitis A Vaccines (1 of 2 - Risk 2-dose series) Hepatitis A Vaccines (1 of 2 - Risk 2-dose series) [facility] Start: 09-16-1953 Diabetes mellitus screening Diabetes Screening [facility] Start: 1947 Depression Screening Depression Screening [facility] Start: 09-16-1941 Pneumococcal Vaccine: 65+ Years (1 - PCV) Pneumococcal Vaccine: 65+ Years (1 - PCV) [facility] Start: 03-19-1936 COVID-19 Vaccine (#1) COVID-19 Vaccine (#1) [facility] Start: 1935 Hepatitis B Vaccines (1 of 3 - 3-dose series) Hepatitis B Vaccines (1 of 3 - 3-dose series) [facility] Start: 1935 Lipid panel Lipid Panel [facility] Start: 1935 Screening for osteoporosis Bone Density Scan [facility] OUTSIDE PROCEDURE SCAN OUTSIDE P ROCEDURE SCAN Procedures Ordered: 10/21/2022 [facility] Payers Date Payer Category Payer Medicare [employer] MEDICARE UHC AARP MEDICARE ADVANTAGE [id number] 2022-Present [phone] [address] [address] [place] [address] Medicare HMO [id number] 2022 Medicare [id number] 2021 Medicaid [place] [id number] 2021-Present [address] [place] [address] Medicaid [id number] 2021 Medicaid [id number] Social History Date Type Detail Facility Start: 08-05-2022 Tobacco smoking status AKIS Smokes t obacco daily [facility] End: 08-05-2022 History of tobacco use Cigarette Smoker [facility] Start: 08-05-2022 End: 09-15-2022 Tobacco use and exposure Smokeless tobacco non-user [facility] Start: 08-09-2022 End: 09-15-2022 Alcohol intake Current drinker of alcohol (finding) [facility] Start: 08-09-2022 End: 09-15-2022 Alcohol intake [facility] Start: 1935 Sex Assigned At Female [facility] Start: 07-27-2022 End: 11-01-2022 Exposure to SARS-CoV-2 (event) Not sure [facility] Start: 09-15-2022 Tobacco smoking status [facility] Ex-smoke r [facility] End: 08-05-2022 History of tobacco use Current smoker [facility] Start: 09-15-2022 Tobacco use panel [facility] Start: 08-05-2022 Gender identity Identifies as female gender (finding) [facility] Start: 08-05-2022 Sexual orientation Heterosexual (fin ding) [facility] Clinical Notes 08-06-2022 to 11-01-2022 Zion Hillman [...] mouth daily. 04/19/22 Historical Provider, Allergies: Diphenhydramine, Fromberg, and Sudafed [pseudoephedrine] Social History: TOBACCO: reports [...] Subdural hematoma (HCC) documented in this encounter [facility] 08-11-2022 Note Attestation signed by Tracy Pérez [...] Brief HPI 86 y.o. female status post [facility]. The incident happened around 8AM on [...] intracranial hemorrhage and left wrist fracture at [facility]. Patient was a direct admit to our [...] thoracic spine wit (more content not included)... [facility] 08-11-2022 Nurse Note Report called to [facility]. [phone] [facility] 08-11-2022 Nurse Note Report called to [facility]. [phone] Spoke with resident about hydralazine order parameters , it is use as first line for BP greater than 140 although patients heart rate is greater then 110 . New orders received documented in this encounter [facility] 08-11-2022 History of Presen t illness Narrative [...] time taken for stance. Pt ambulation with GUARD SUPERVISOR, postural instability throughout and difficulty during [...] static standing balance, no LOB, flexed posture, GUARD SUPERVISOR x 1 Exercises Quad Sets: AROM [...] Inpatient Mobility Raw Score: 14 Mobility Inpatient [facility] G-Code Modifier: CL Goals Encounter Problems Encounter [...] Timed Code Treatment Minutes: (1gt-1tp) LOPEZ Rod CANDY DIPPER HAND Images from the original note were not included. Daily Trauma Progress Note DEAN 08/11/2022 6:29 AM Admit Date: 08/05/2022 Post Trauma Day 6 Fall Mechanical HISTORY OF TRAUMATIC EVENT: 86 y.o. female status post [facility]. The incident happened around 8AM on [...] 20 mg, 20 mg, Oral, Daily, Uriel Johnosn MD, 20 mg at 08/10/22 09 heparin [...] 1.65 mg, 1.65 mg, IntraVENous, Once PRN, Urile Johnson MD polyethylene glycol (PEG) 3350 (Miralax) [...] guard, watchful, or easily startled? No 4. [place] numb or detached from people, activities, or your surroundings? No 5. [place] guilty or unable to stop blaming yourself [...] diet - Ensure TID - Follow up Drill Rig Operator recs - Zofran PRN - Bowel regimen: [...] MD Division of Trauma Department of Surgery [facility] Pager: [phone] Dr. Garcia at pt side to remove CT. 1220- CT removed by Dr. Garcia, pt tolerated well, and is sitting comfortably with no needs at this time. Images from the original note were not included. Daily Trauma Progress Note Resident 08/10/2022 6:09 AM Admit Date: 08/05/2022 Post Trauma Day 5 Fall Mechanical HISTORY OF TRAUMATIC EVENT: 86 y.o. female status post [facility]. The incident happened around 8AM on [...] guard, watchful, or easily startled? No 4. [place] numb or detached from people, activities, or your surroundings? No 5. [place] guilty or unable to stop blaming yourself [...] 5 mg PRN - [facility] Seizure ppx: none - Elevate [...] diet - Ensure TID - Follow up Drill Rig Operator recs - Zofran PRN - Bowel regimen: [...] risk for delirium I personally supervised the resident/ENDODONTIST/BELÉN in the evaluation and development of a [...] 5 mg PRN - Neurosurgery consulted - [facility] stable - Seizure ppx: none - Elevate [...] diet - Ensure TID - Follow up Drill Rig Operator recs - Zofran PRN - Bowel regimen: [...] appropriate exam and evaluation Arnaldo Mitchell MD [facility] Trauma, Surgical Critical Care, & General Surgery Division of Trauma Department of Surgery [facility] P Occupational Therapy Facility/Department: Room: [facility] Occupational Therapy Initial Evaluation NAME: Dayana Salamanca [...] ambulation to/from toilet with min assist and GUARD SUPERVISOR. Pt unsteady on her feet and [...] Plan of Care supervision is transferred to [facility] Occupational Therapist. This provider wore [...] Yes Assessment: 86 y.o. female admitted to [facility] for fall with SDH, SAH, and L [...] TRAUMATIC EVENT: 86 y.o. female status post [facility]. The incident happened around 8AM on [...] guard, watchful, or easily startled? No 4. [place] numb or detached from people, activities, or your surroundings? No 5. [place] guilty or unable to stop blaming yourself [...] Start Ensure TID - LFTs - Consult all terrain vehicle racer - Consult colorectal for rectal prolapse - [...] risk for delirium I personally supervised the resident/ENDODONTIST/BELÉN in the evaluation and development of a [...] tylenol, PRN oxy - Neurosurgery consulted - [facility] stable - Seizure ppx: none - Elevate [...] Start Ensure TID - LFTs - Consult all terrain vehicle racer - Consult colorectal for rectal prolapse - [...] appropriate exam and evaluation Arnaldo Mitchell MD [facility] Trauma, Surgical Critical Care, & General Surgery Division of Trauma Department of Surgery [facility] P Physical Therapy Patient currently having chest [...] TRAUMATIC EVENT: 86 y.o. female status post [facility]. The incident happened around 8AM on [...] guard, watchful, or easily startled? No 4. [place] numb or detached from people, activities, or your surroundings? No 5. [place] guilty or unable to stop blaming yourself [...] tylenol, PRN oxy - Neurosurgery consulted - [facility] stable - Seizure ppx: none - Elevate [...] risk for delirium I personally supervised the resident/ENDODONTIST/BELÉN in the evaluation and development of a [...] tylenol, PRN oxy - Neurosurgery consulted - [facility] stable - Seizure ppx: none - Elevate [...] Surgery Division of Trauma Department of Surgery [facility] P Nutrition Assessment Type and Reason for [...] Thigh (quadraceps), Scapula (trapezius) Fluid Accumulation: Mild Relay Checker Strength: Not Performed Nutrition Assessment: Pt admitted [...] - no surgical intervention @ this time. RETAIL LOSS PREVENTION SPECIALIST completed swallow eval 08/06 with recommendations for [...] Total Energy Requirements (kcals/day): 28-32 kcal/kg = 3252-4358 kcal Weight Used for Protein Requirements: Current [...] (91 lb) (08/06) Weight Source: Not Specified [place] Body Weight (lbs) (Calculated): 100 lbs [place] Body Weight (Kg) (Calculated): 45 kg % [place] Body Weight (Calculated): 91 % BMI (kg/m2) [...] to determine Edel Herring RD Contact: phone *[phone] Images from the original note were not included. Daily Trauma Progress Note Resident 08/07/2022 6:17 AM Admit Date: 08/05/2022 Post Trauma Day 2 Fall Mechanical HISTORY OF TRAUMATIC EVENT: 86 y.o. female status post [facility]. The incident happened around 8AM on [...] guard, watchful, or easily startled? No 4. [place] numb or detached from people, activities, or your surroundings? No 5. [place] guilty or unable to stop blaming yourself [...] tylenol, PRN dilaudid - Neurosurgery consulted - [facility] stable - Seizure ppx: none - Elevate [...] PRN - Bowel regimen: miralax prn - RETAIL LOSS PREVENTION SPECIALIST consulted - Daily BMP, Mg, Phos - [...] - Aggressive pulmonary hygiene Gastrointestinal system - RETAIL LOSS PREVENTION SPECIALIST - Bowel regimen # Rectal prolapse - [...] FACS Division of Trauma Department of Surgery [facility] ~~~~~~~~~~~~~~~~~~~~~~~~~~~~~~~~~ ~~~~~~~~~~~~~~~~~~~~~~~~~~~~ This note may have been dictated using [employer] Edition 2.6 and/or [employer]illi Voice Recognition Feature. The document was proofread; however, unrecognized voice recognition farm contractor errors may be present. Images from the original note were not included. Speech-Language Pathology SPEECH LANGUAGE PATHOLOGY [facility] Bedside Swallow Evaluation Patient Name: Dayana Salamanca Evaluation Date: 08/06/2022 Date of : 1935 Admission Date: 08/05/2022 10:10 PM Age: 86 y.o. Room[facility]Bed: [facility] Admission Diagnosis: does not have any [...] have food prepared pre-sliced/cut. No skilled acute RETAIL LOSS PREVENTION SPECIALIST indicated at this time. Please reconsult should changes occur. Subjective Patient alert and cooperative. Seen upright in bed. Answers all basic questions with clear, strong vocal quality. Follows all basic commands. No visitors at b/s. Spoke with RN who cleared pt to be evaluated. Dysphagia History: No history of RETAIL LOSS PREVENTION SPECIALIST services in EMR with retrospective chart review [...] Start: 08/06/22 Expected End: 08/20/22 Therapy Time RETAIL LOSS PREVENTION SPECIALIST Individual Minutes Time In: 0930 Time Out: [...] Surgery Division of Trauma Department of Surgery [facility] Images from the original note were not included. Daily Trauma Progress Note Resident 08/06/2022 7:36 AM Admit Date: 08/05/2022 Post Trauma Day 1 Fall Mechanical HISTORY OF TRAUMATIC EVENT: 86 y.o. female status post [facility]. The incident happened around 8AM on [...] guard, watchful, or easily startled? No 4. [place] numb or detached from people, activities, or your surroundings? No 5. [place] guilty or unable to stop blaming yourself [...] tylenol, PRN dilaudid - Neurosurgery consulted - [facility] stable - Seizure ppx: none - Elevate [...] PRN - Bowel regimen: miralax prn - RETAIL LOSS PREVENTION SPECIALIST consulted - Daily BMP, Mg, Phos : [...] - Aggressive pulmonary hygiene Gastrointestinal system - RETAIL LOSS PREVENTION SPECIALIST - diet - Bowel regimen Renal function [...] FACS Division of Trauma Department of Surgery [facility] ~~~~~~~~~~~~~~~~~~~~~~~~~~~~~~~~~ ~~~~~~~~~~~~~~~~~~~~~~~~~~~~ This note may have been dictated using [employer] Edition 2.6 and/or [employer]illi Voice Recognition Feature. The document was proofread; however, unrecognized voice recognition farm contractor errors may be present. documented in this encounter [facility] 08-11-2022 Note Formatting of this n ote might be different from the original. [facility] set for 5pm with Dominik Marten via cot. Patient and staff notified of pending dc and picker packer time. [facility] 08-11-2022 Miscellaneous Notes [facility] Transport set for 5pm with Dominik Marten via cot. Patient and staff notified of pending dc and picker packer time. Met with patient at bedside with chun Mckeon on phone, discussed therapy recommendations, is agreeable to placement. Discussed transportation and is agreeable. Will follow. Patient Choice Patient Name: DAYANA SALAMANCA Date of : 1935 All Providers Sent Referral Name: [facility] Address: [address] [place] [address] [facility] able to accept, submitting for insurance approval. Medical Plan: Chest tube in place. CXR completed. PT/OT recs FBT. Met with patient discussed therapy recommendations would like to go to [facility]. Referral sent. Will need insurance approval. Will follow. Discharge plan:[place] [facility]? Discharge barriers: none S/p right thoracentesis [...] Limits Permission given to speak with patient branch customer service representative/caregiver as indicated: Yes Confirmation of Payer [...] improved Outcome: Progressing documented in this encounter [facility] 08-11-2022 Note Formatting of this n ote might be different from the original. Met with patient at bedside with son Mike on phone, discussed therapy recommendations, is agreeable to placement. Discussed transportation and is agreeable. Will follow. [facility] 08-10-2022 Consult note Associated Order (s): IP [...] Thigh (quadraceps), Scapula (trapezius) Fluid Accumulation: Mild Relay Checker Strength: Not Performed Nutrition Assessment: Pt is an 86 year old female with PMH that includes HTN who admits 08/05 after a mechanical fall. Found to have traumatic acute SDH and SAH; bilateral pleural effusions; and left distal radius with associated distal ulna fracture. Ortho performed closed reduction of L distal radius 08/06. Neurosurgery following - no surgical intervention @ this time. RETAIL LOSS PREVENTION SPECIALIST completed swallow eval 08/06 with recommendations for Regular/Thin. Pt is s/p right thoracentesis on 08/07 and is s/p Right chest tube on 08/08. Pt endorsed decreased appetite CANDY DIPPER HAND. UBW 77-90#, pt told RD her highest [...] Total Energy Requirements (kcals/day): 28-32 kcal/kg = 2487-5644 kcal Weight Used for Protein Requirements: Current [...] (91 lb) (08/06) Weight Source: Not Specified [place] Body Weight (lbs) (Calculated): 100 lbs [place] Body Weight (Kg) (Calculated): 45 kg % [place] Body Weight (Calculated): 91 % BMI (kg/m2) [...] Planning: Too soon to determine Adina Pinto RD,LD[facility] Contact: *[phone] or [employer] Chat T [facility] 08-10-2022 Consult note Associated Order (s): IP [...] Thigh (quadraceps), Scapula (trapezius) Fluid Accumulation: Mild Relay Checker Strength: Not Performed Nutrition Assessment: Pt is an 86 year old female with PMH that includes HTN who admits 08/05 after a mechanical fall. Found to have traumatic acute SDH and SAH; bilateral pleural effusions; and left distal radius with associated distal ulna fracture. Ortho performed closed reduction of L distal radius 4/15. Neurosurgery following - no surgical intervention @ this time. RETAIL LOSS PREVENTION SPECIALIST completed swallow eval 08/06 with recommendations for Regular/Thin. Pt is s/p right thoracentesis on 08/07 and is s/p Right chest tube on 08/08. Pt endorsed decreased appetite CANDY DIPPER HAND. UBW 77-90#, pt told RD her highest [...] Total Energy Requirements (kcals/day): 28-32 kcal/kg = 0142-4267 kcal Weight Used for Protein Requirements: Current [...] (91 lb) (08/06) Weight Source: Not Specified [place] Body Weight (lbs) (Calculated): 100 lbs [place] Body Weight (Kg) (Calculated): 45 kg % [place] Body Weight (Calculated): 91 % BMI (kg/m2) [...] soon to determine Adina Pinto RD,LD,[facility] Contact: *[phone] or [employer] Chat Images from the original note were [...] dying let me asked if she has [place] DNR form, tells me she does not, clarified no chest compressions, defibrillation, intubation or vent supports, agrees, aware will fill out [place] form for portability and provide her with original to have with her paperwork. Is very thankful - [place] DNRCCA-DNI form filled out and placed on [...] in home resultant in fall, went to [place] [facility] revealing [facility]H [facility] [facility]. Repeat CTH with stability, no [...] parents have Allergies Allergen Reactions Diphenhydramine Other Fromberg Review of Systems ROS: See palliative care ROS/ESAS below; All other systems were reviewed and are negative. [place] Symptom Assessment Score [place] Score Pain Score 0 Tiredness Score 0 [...] Assessed by: patient and provider. Social history: [place] status: no Marital status: Living status: alone [...] Salamanca has been seen in consultation by [facility] during their admission to [facility]. They currently have no uncontrolled symptoms and [...] not crush or chew. Allergies: Diphenhydramine and Fromberg Social History Socioeconomic History Marital status: Tobacco [...] Narrative: Patient Name: DAY[facility]ANCA [facility] 1935 [id number] Exam Date/Time: 08/06/2022 05:19 Procedure: CT CHEST [...] Narrative: Patient Name: DAYANA SALAMANCA : 1935 [id number] Exam Date/Time: 08/06/2022 05:19 Procedure: CT HEAD [...] This note may have been dictated using [employer] Edition 2.6 and/or Bluechilli Voice Recognition Feature. The document was proofread; however, unrecognized voice recognition farm contractor errors may be present. Associated Order(s): IP [...] was performed and she was transferred to [facility]. She apparently did not lose consciousness. She currently has no complaints and neurological review of systems is negative. She appears to be functioning at her baseline. Past Medical History: Past Medical History: Diagnosis Date HTN (hypertension) Past Surgical History: No past surgical history on file. Home Medications: Prior to Admission medications Not on File Allergies: Diphenhydramine and Fromberg Social History: TOBACCO: reports that she has [...] 435 ms QTC Interval 514 ms P [place] degrees QRS [place] -29 degrees T Wave [place] 131 degrees [place] Interval ms CBC auto differential Collection Time: [...] 423 ms QTC Interval 496 ms P [place] degrees QRS [place] -29 degrees T Wave [place] 121 degrees MO Interval ms CBC auto differential Collection Time: [...] 435 ms QTC Interval 490 ms P [place] degrees QRS [place] -32 degrees T Wave [place] 114 degrees MO Interval ms Radiology Personal review: CT head [...] provider. Associated Order(s): IP CONSULT TO GERIATRICS [facility] Geriatric Medicine Inpatient Consult Service Admission [...] - Advised to follow up with [facility] after discharge. # High Risk for Delirium [...] that she was born and raised in [facility] but moved to [place] many years after she got . Lived in different states. of 48 years in 2002. Patient moved back to [place] in August 2021. Has a son that lives in [place]. Visited him and his family in December 2021. Patient had a great time with her grandchildren, son and . Labs: remarkable for Pro BNP 3, 880 Cxray: Lt Pulmonary effusion, glass ground effusion. CT head consistent with stable right sided subdural hematoma. Conversation with caregiver: Peri ( niece- [phone]). -Peri was on the phone with the patient when she had a fall in her trailer at around 7 30-9 a.m. - Reports has no major concern for the patient. Advance Care Planning Healthcare Power ofAttorney: Yes, Tres [employer] Power of Poultry Feed Supervisor: Yes, SonTres Living Will:Yes Code Status: Full Code Allergies Allergen Reactions Diphenhydramine Fromberg Current Facility-Administered Medications: acetaminophen (Ofirmev) injection 600 [...] with significantly more driving errors [employer] Med 2005; 20:240-244 Labs and Imaging: Recent Results (from the past 24 hour(s)) Electrocardiogram, 12-lead Collection Time: 08/05/22 11:12 PM Result Value Ref Range Heart Rate 84 bpm QRSD Interval 115 ms QT Interval 435 ms QTC Interval 514 ms P [place] degrees QRS [place] -29 degrees T Wave [place] 131 degrees [place] Interval ms CBC auto differential Collection Time: [...] 423 ms QTC Interval 496 ms P [place] degrees QRS [place] -29 degrees T Wave [place] 121 degrees MO Interval ms CBC auto differential Collection Time: [...] 435 ms QTC Interval 490 ms P [place] degrees QRS [place] -32 degrees T Wave [place] 114 degrees MO Interval ms No results found for: TSH [...] lines, as able documented in this encounter [facility] 08-10-2022 Note Formatting of this n ote might be different from the original. Patient Choice Patient Name: DAYANA SALAMANCA Date of : 1935 All Providers Sent Referral Name: [facility]patient [facility]hab [facility] Address: [address] [place] [address] T [facility] 08-10-2022 Note Formatting of this n ote might be different from the original. [facility] able to accept, submitting for insurance approval. T [facility] 08-10-2022 Note Formatting of this n ote might be different from the original. Medical Plan: Chest tube in place. CXR completed. PT/OT recs FBT. Met with patient discussed therapy recommendations would like to go to [facility]. Referral sent. Will need insurance approval. Will follow. [facility]charge [facility] Discharge barriers: none [facility] 08-08-2022 Note Attestation signed by Robert Mitchell MD at 08/08/2022 9:55 PM Attending physician addendum: I was immediately available to the bedside for the entire procedure. Patient tolerated procedure well. Arnaldo Mitchell MD [facility] Trauma, Surgical Critical Care, & General Surgery Division of Trauma Department of Surgery [facility] P Chest Tube Procedure Note Indication: Pneumothorax [...] small skin incision & dilation, a/an 14 Dominican pigtail catheter was passed over the guidewire [...] documented as signed by this procedure note. Computer System Specialist(s): Dr. Johnson Supervision: Supervision was required for this procedure. Dr. Johnson was physically present and supervised all singletary elements of the procedure. [facility] 08-08-2022 Note Physical Therapy Patient currently having chest tube place. PT evaluation held. [facility] 08-08-2022 Procedure note Procedure(s): CHEST TUBE [...] small skin incision & dilation, a/an 14 Dominican pigtail catheter was passed over the guidewire [...] documented as signed by this procedure note. Computer System Specialist(s): Dr. Johnson Supervision: Supervision was required for [...] Surgery Division of Trauma Department of Surgery [facility] P [facility] 08-08-2022 Procedure note Procedure(s): CHEST TUBE INSERTION [...] small skin incision & dilation, a/an 14 Dominican pigtail catheter was passed over the guidewire [...] documented as signed by this procedure note. Computer System Specialist(s): Dr. Johnson Supervision: Supervision was required for [...] Surgery Division of Trauma Department of Surgery [facility] P documented in this encounter [facility] 08-08-2022 Plan of care note S/p right thoracentesis on 08/07. Chest xray from this morning demonstrated small right apical pneumothorax. Discussed with radiologists who recommend repeat chest x-ray this afternoon to re-evaluate pneumothorax. Communicated this to Dr. Garcia via Secure Chat. [employer] Phone: 08-08-2022 Consult note Formatting of th [...] dying let me asked if she has [place] DNR form, tells me she does not, clarified no chest compressions, defibrillation, intubation or vent supports, agrees, aware will fill out [place] form for portability and provide her with original to have with her paperwork. Is very thankful - [place] DNRCCA-DNI form filled out and placed on [...] in home resultant in fall, went to [place] [facility] CTH revealing [facility]H transferred to [facility] [...] parents have Allergies Allergen Reactions Diphenhydramine Other Fromberg Review of Systems ROS: See palliative care ROS/ESAS below; All other systems were reviewed and are negative. [place] Symptom Assessment Score [place] Score Pain Score 0 Tiredness Score 0 [...] Assessed by: patient and provider. Social history: [place] status: no Marital status: Living status: alone [...] Salamanca has been seen in consultation by [facility] during their admission to [facility]. They currently have no uncontrolled symptoms and have established goals of care and we have signed off of their case. The patient has established follow-up with PCP. [employer] Work Phone: 08-08-2022 Nurse Note Spoke with resident about hydralazine order parameters , it is use as first line for BP greater than 140 although patients heart rate is greater then 110 . New orders received [facility] 08-08-2022 Note Formatting of this n ote might be different from the original. Care Managment Initial Assessment Date: 08/09/2022 Patient Name: Dayana Salamanca : 1935 Patient Information Source of Information: Patient Cognition/Language: WFL - Within Functional Limits Permission given to speak with patient branch customer service representative/caregiver as indicated: Yes Confirmation of Payer with patient/family: Yes Payer Name: [facility] : No Confirmation of Primary Care [...] at dc. Will follow. Mp Heredia RN [facility] [employer] 08-07-2022 Plan of care note Problem: Knowledge Deficit Goal: Patient/family/caregiver demonstrates understanding of disease process, treatment plan, medications, and discharge instructions Outcome: Progressing Problem: Potential for Compromised Skin Integrity Goal: Skin Integrity is Maintained or Improved Outcome: Progressing Goal: Nutritional status is improving Outcome: Progressing Problem: Urinary Incontinence Goal: Perineal skin integrity is maintained or improved Outcome: Progressing [facility] [employer] 08-07-2022 Consult note Formatting of th is [...] not crush or chew. Allergies: Diphenhydramine and Fromberg Social History Socioeconomic History Marital status: Tobacco [...] Narrative: Patient Name: DAY[facility] SAL[facility]ANCA [facility] 1935 [id number] Exam Date/Time: 08/06/2022 05:19 Procedure: CT CHEST [...] Narrative: Patient Name: DAYANA SALAMANCA : 1935 [facility]#: [id number] Exam Date/Time: 08/06/2022 05:19 Procedure: CT HEAD [...] This note may have been dictated using [employer] Medical Practice Edition 2.6 and/or Bluechilli Voice Recognition Feature. The document was proofread; however, unrecognized voice recognition farm contractor errors may be present. T [facility] 08-06-2022 Consult note Associated Order (s): IP [...] was performed and she was transferred to [facility]. She apparently did not lose consciousness. She currently has no complaints and neurological review of systems is negative. She appears to be functioning at her baseline. Past Medical History: Past Medical History: Diagnosis Date HTN (hypertension) Past Surgical History: No past surgical history on file. Home Medications: Prior to Admission medications Not on File Allergies: Diphenhydramine and Fromberg Social History: TOBACCO: reports that she has [...] 435 ms QTC Interval 514 ms P [place] degrees QRS [place] -29 degrees T Wave [place] 131 degrees MO Interval ms CBC auto differential Collection Time: [...] 423 ms QTC Interval 496 ms P [place] degrees QRS [place] -29 degrees T Wave [place] 121 degrees MO Interval ms CBC auto differential Collection Time: [...] 435 ms QTC Interval 490 ms P [place] degrees QRS [place] -32 degrees T Wave [place] 114 degrees MO Interval ms Radiology Personal review: CT head [...] counseling/coordinating care and provided discussion regarding sdh. [employer] Phone: 08-06-2022 Consult note Associated Order (s): IP CONSULT TO PALLIATIVE CARE Consult acknowledged, discussed with eleazar Bui for full consult to be completed 08/08/22, aware should needs change to notify weekend covering provider. [facility] 08-06-2022 Plan of care note Problem: Knowledge Deficit Goal: Patient/family/caregiver demonstrates understanding of disease process, treatment plan, medications, and discharge instructions Outcome: Progressing Problem: Potential for Compromised Skin Integrity Goal: Skin Integrity is Maintained or Improved Outcome: Progressing Goal: Nutritional status is improving Outcome: Progressing Problem: Urinary Incontinence Goal: Perineal skin integrity is maintained or improved Outcome: Progressing [facility] 08-06-2022 Consult note Associated Order (s): IP CONSULT TO GERIATRICS [facility] Geriatric Medicine Inpatient Consult Service Admission [...] - Advised to follow up with [facility] after discharge. # High Risk for Delirium [...] that she was born and raised in [facility] but moved to [place] many years after she got . Lived in different states. of 48 years in 2002. Patient moved back to [place] in August 2021. Has a son that lives in [place]. Visited him and his family in December 2021. Patient had a great time with her grandchildren, son and . Labs: remarkable for Pro BNP 3, 880 Cxray: Lt Pulmonary effusion, glass ground effusion. CT head consistent with stable right sided subdural hematoma. Conversation with caregiver: Peri ( niece- [phone]). -Peri was on the phone with the patient when she had a fall in her trailer at around 7 30-9 a.m. - Reports has no major concern for the patient. Advance Care Planning Healthcare Power ofAttorney: Yes, Tres [employer] Power of Poultry Feed Supervisor: Yes, SonTres Living Will:Yes Code Status: Full Code Allergies Allergen Reactions Diphenhydramine Fromberg Current Facility-Administered Medications: acetaminophen (Ofirmev) injection 600 [...] with significantly more driving errors [employer] Owner Med 2005; 20:240-244 Labs and Imaging: Recent Results (from the past 24 hour(s)) Electrocardiogram, 12-lead Collection Time: 08/05/22 11:12 PM Result Value Ref Range Heart Rate 84 bpm QRSD Interval 115 ms QT Interval 435 ms QTC Interval 514 ms P [place] degrees QRS [place] -29 degrees T Wave [place] 131 degrees MO Interval ms CBC auto differential Collection Time: [...] 423 ms QTC Interval 496 ms P [place] degrees QRS [place] -29 degrees T Wave [place] 121 degrees MO Interval ms CBC auto differential Collection Time: [...] 435 ms QTC Interval 490 ms P [place] degrees QRS [place] -32 degrees T Wave [place] 114 degrees MO Interval ms No results found for: TSH [...] -D/c Burton, restraints, IV lines, as able [employer] Phone: 08-06-2022 Hospital Discharg e instructions Donna [...] with NSGY - For pain: Take Tylenol. Letart Oxy for breakthrough pain. This will cause [...] Unit/Room#: W3-337/W3-337 A Discharging Unit Phone Number: [phone] Emergency Contact: Extended Emergency Contact Information Primary Emergency Contact: Mike Salamanca Relation: Mother Preferred language: Northern Irish Technical Support Representative needed? No Secondary Emergency Contact: Chata Cruz Relation: Niece Preferred language: [place] Technical Support Representative needed? No Past Surgical History: History reviewed. [...] Minimal assistance Toileting Minimal assistance Feeding Independent Isobutylene Operator Chief Minimal assistance Med Delivery yes Wound Care [...] Score: @READMISSIONRISKDETAILS@ Discharging to Facility/ Agency Name: [facility] Address: [address] [place] [address] Fax: Dialysis Facility (if applicable) Name: Address: Dialysis Schedule: Phone: Fax: Brazing Machine Feeder/Home Health Clinical Supervisor signature: ICIAN SECTION Prognosis: good Condition at Discharge: stable Rehab Potential (if transferring to Rehab): good Recommended Labs or Other Treatments After Discharge: NO ASA until NSGY follow up, ok for dvt chemoprophylaxis with heparin Physician Certification: I certify the above information and transfer of Dayana Salamanca is necessary for the continuing treatment of the diagnosis listed and that she requires fpc facility for less than 30 days. Update Admission H&P: No change in H&P PHYSICIAN SIGNATURE: The following attachments cannot be sent through Care Everywhere.Pneumothorax (Collapsed Lung) Discharge Instructions (Northern Irish)Subdural Hematoma Discharge Instructions (Northern Irish)documented in this encounter [facility] 08-06-2022 Note Attestation signed by Rolan Noriega [...] effusions on x-ray -Pulm toilet -NPO, IVF, RETAIL LOSS PREVENTION SPECIALIST evaluation -Monitor I/O's -AM labs -Ortho consultation for L DR/gretchen fx -SCD's, hold lovenox -PT/OT Total Care Time throughout the day today was >= 75 minutes (including chart/data review/analysis, care coordination, and vfqw-rn-cqpw encounter), and was spent discussing/counseling the patient/family [...] Surgery Division of Trauma Department of Surgery [facility] Trauma H&P 08/05/2022 11:30 PM Trauma Attending: Dr. Noriega Level of Initial Activation: Direct Admit Upgraded: No To:N/A Mechanism of Injury: Fall Mechanical Mechanism of Arrival:Transfer from [place] Chief Complaint: Left wrist pain History of Traumatic Injury: 86 y.o. female status post [facility]. The incident happened around 8AM on [...] yes, which one? (more content not included)... [facility] this encounter [facility] Diagnosis Subdural hematoma (HCC) Subdural hemorrhage [facility] Diagnosis Subdural hematoma (HCC)- Primary Subdural hemorrhage documented in this encounter [facility] for referral (narrative)* Consultation (Routine) - Pending Review Specialty Diagnoses / Procedures Referred By Britany flores Referred To Contact Physician Computer System Specialist / Trauma Surgery Diagnoses Intracranial hemorrhage (HCC) Acute pain due to trauma Closed fracture of left forearm, initial encounter Procedures MO OFFICE/OUTPATIENT [facility] MDM 60-74 MINUTES Donna Rowe PA-C [address] [place] [address] Donna Rowe PA-C [address] [place] [address] Referral ID Status Reason Start Date Expiration Date Visits Requested Visits Authorized [id number] Pending Review Specialty Services Required 08/11/2022 08/11/2023 1 1 [facility] Advance Directives No Advanced Directives Records FoundLatest [...] Documents on File Type Date Recorded Patient Talent Consultant Expl anation DNR (Do Not Resuscitate) 08/12/2022 11:36 AM Documents on File Type Date Recorded Patient Talent Consultant Expl anation DNR (Do Not Resuscitate) 08/12/2022 [...] head wo IV contrast Campos Garduno PA-C [address] [place] [address] Referral ID Status Reason Start Date Expiration Date Visits Re quested Visits Authorized [id number] Closed 09/15/2022 03/14/2023 1 1 Summary Purpose Family History No Family History Records Found Additional Source Comments Reason for Visit (unrecogniz ed section and content) Referral ID Status Reason Start Date Expiration Date Visits Re quested Visits Authorized [id number] 1 1 Specialty Diagnoses / Procedures Referred By Contac t Referred To Contact Radiology Diagnoses Subdural hematoma (HCC) Procedures CT head wo IV contrast Campos Garduno PA-C [address] [place] [address] Referral ID Status Reason Start Date Expiration Date Visits Re quested Visits Authorized [id number] Closed 09/15/2022 03/14/2023 1 1 Reason Comments Follow-up CT f/u Care Teams (unrecognized sec tion and content) [employer] Equipment Operator Relationship Specialty Start Date End Date Deidre Borrero MD [address] [place] [phone] PCP - General Family Medicine 08/05/22 [employer] Equipment Operator Relationship Specialty Start Date End Date Deidre Borrero MD [address] [place] [phone] PCP - General Family Medicine 08/05/22 [employer] Equipment Operator Relationship Specialty Start Date End Date Deidre Borrero MD [address] [place] [phone] PCP - General Family Medicine 08/05/22 Scheduled [...] BE BASED ON THE PRIMARY CLINICAL RECORDS. [employer] provides no warranty or guarantee of the accuracy or completeness of information in this document.
[2023-06-02 04:15] VITALS: PULSE 91; RESP 26
[2023-06-02] MEDS: Ipratropium/Albuterol Sulfate 3 ML AMPUL.NEB INHALATION (04:15)
[2023-06-02 04:18] LABS: Absolute Lymphocyte Count 1.54 X10^3/uL (0.83-4.51); Absolute Neutrophil Count 5.4 X10^3/uL (2.0-7.7); Basophil# 0.06 X10^3/uL; Basophil% 0.7 % (0-1); Eosinophil# 0.31 X10^3/uL; Eosinophils% 3.7 % (0-5); Hemoglobin 12.6 g/dL (12.0-15.0); Lymphocyte # 1.54 X10^3/ul (0.83-4.51); Lymphocyte % 18.2 % (19-41); Mean Corpuscular Hgb 27.9 pg (27.0-32.0); Mean Corpuscular Volume 92.9 fL (81-99); Mean Platelet Vol. 10.3 fl (6.2-12.0); Monocyte# 1.07 X10^3/uL; Monocyte% 12.7 % (0-10); NRBC Flagged by Analyzer 0 % (0-5); Neutrophil # 5.43 X10^3/uL (2.7-7.7); Neutrophil % 64.3 % (47-70); Platelet Count 357 K/mm3 (150-450); RBC Distribution Width CV 17.9 % (11.6-14.6); RBC Distribution Width SD 61.6 fl (35.1-43.9); Red Blood Count 4.52 M/mm3 (4.2-5.4); White Blood Count 8.4 K/mm3 (4.4-11.0)
--- NOTE | 2023-06-02 04:29 | RAD_ITS ---
STUDY: X-RAY CHEST REASON FOR EXAM: Female, 87 years old patient with cough. TECHNIQUE: Single AP portable view of the chest. COMPARISON: Chest radiograph dated May 06, 2023. FINDINGS: Cardiac monitoring leads are present. Lungs are underexpanded with crowding of bronchovascular markings. There appears to be bilateral basilar airspace consolidation, atelectasis and pleural effusions. There is mild cardiac enlargement. Normal mediastinum and mango. There is prominence of the pulmonary hilar arteries with peripheral pulmonary vascular congestion. There is atherosclerotic calcification of the aortic arch with tortuosity. There is demineralization of the osseous structures. There is curvature of the thoracic spine with convexity towards the right. Normal visualized ribs, clavicles, and shoulders. There is no demonstrated abnormality of the visualized soft tissue structures of the upper abdomen. RAD/Chest 1 View (Portable) IMPRESSION: Bilateral basilar airspace disease, atelectasis and pleural effusions. Electronically Signed: Elisabet Dumont MD at 5:22 EST ,
[2023-06-02 04:31] LABS: Anion Gap 4 (5-15); BUN 12 mg/dL (7-18); BUN/Creat Ratio 11.3 RATIO (10-20); Calcium,Total 8.8 mg/dL (8.5-10.1); Chloride 108 mmol/L (98-107); Creatinine, Serum 1.06 mg/dL (0.55-1.02); EST Glomerular Filtration Rate 52 mL/min (>60); Est Glom Filt Rate - Afr Amer 63 mL/min (>60); Glucose 95 mg/dL (74-106); Magnesium 2.3 mg/dL (1.6-2.6); Potassium 4.3 mmol/L (3.5-5.1); Sodium Level 142 mmol/L (136-145)
[2023-06-02] MEDS: Furosemide 40 MG/4 ML Vial IV (04:52)
--- NOTE | 2023-06-02 05:08 | EX.ED.DYSGE1 ---
HPI History of Present Illness Chief Complaint: Shortness of Breath Informant: patient, family and EMS Narrative Narrative: Patient is 87-year-old female with past medical history of dementia congestive heart failure chronic atrial fibrillation currently on Eliquis and COPD as well as previous stroke. Son states she has been home from the rehab center now for a few weeks. He states has been doing well but then woke him up this morning stating she did not feel well. Son states that the patient appeared to be short of breath and secondary to this EMS was called for evaluation. Upon arrival to the ER patient states that her symptoms have resolved [facility] Medical History (Updated 06/02/23 @ 08:[address] Miguel Marte, DO) (HFpEF) heart failure with preserved ejection fraction Atherosclerosis of lower extremity with claudication Bilateral pleural effusion Bilateral pleural effusion Chronic renal failure, stage 3a Chronic respiratory failure with hypoxia Cognitive dysfunction Dementia Diabetes mellitus type 2 in nonobese Dysphagia Fall Fracture of left radius and ulna History of ectopic HTN (hypertension) Left ventricular hypertrophy Longstanding persistent atrial fibrillation Low HDL (under 40) Moderate pulmonary hypertension Osteoporosis Peripheral vascular disease Presbycusis of both ears Rectal prolapse Subarachnoid hemorrhage Subdural hematoma Tobacco dependence Wrist fracture, left Home Medications ascorbic acid (vitamin C) 500 mg capsule 500 mg PO DAILY supp 04/19/22 [History Last Taken 05/10/23] alendronate 35 mg tablet 35 mg PO FR osteoporosis 12/02/22 [History Last Taken Unknown] acetaminophen 325 mg capsule (Tylenol) 650 mg PO Q6H PRN fever or pain 05/06/23 [History Last Taken Unknown] donepezil 5 mg tablet 5 mg PO QHS memory 05/06/23 [History Last Taken Unknown] olopatadine 0.2 % eye drops (Pataday Once Daily Relief) 1 drp EACH EYE DAILY itchy eyes 05/06/23 [History Last Taken Unknown] aspirin 81 mg chewable tablet 1 tab PO DAILY heart health 05/10/23 [History Last Taken Unknown] apixaban 2.5 mg tablet 2.5 mg PO BID #60 tabs 05/24/23 [Rx Last Taken Unknown] atorvastatin 80 mg tablet 80 mg PO QHS #30 tabs 05/24/23 [Rx Last Taken Unknown] carvedilol 25 mg tablet 25 mg PO BIDCM #60 tabs 05/24/23 [Rx Last Taken Unknown] cholecalciferol (vitamin D3) 25 mcg (1,000 unit) tablet 25 mcg PO DAILY #30 tabs 05/24/23 [Rx Last Taken Unknown] furosemide 20 mg tablet 20 mg PO DAILY #30 tabs 05/24/23 [Rx Last Taken Unknown] lisinopril 5 mg tablet 5 mg PO DAILY #30 tabs 05/24/23 [Rx Last Taken Unknown] mirtazapine 15 mg tablet 7.5 mg (1/2 x 15 mg) PO QHS #30 tabs 05/24/23 [Rx Last Taken Unknown] psyllium husk (aspartame) 3 gram oral powder packet (Daily Fiber (psyllium-aspartame)) 1 packet PO BID #60 ea 05/24/23 [Rx Last Taken Unknown] sennosides 8.6 mg-docusate sodium 50 mg capsule 1 tab-cap PO BID PRN constipation #60 caps 05/24/23 [Rx Last Taken Unknown] furosemide 40 mg tablet (Lasix) 40 mg PO DAILY 7 days #7 tabs 06/02/23 [Rx Last Taken Unknown] Allergy/AdvReac Type Severity Reaction Status Date / Time diphenhydramine AdvReac Intermediate Other Verified 05/06/23 09:39 [From Benadryl] Family History unable to obtain Surgical History H/O: hysterectomy (~1972) History of cataract surgery (~1989) Social History household members: none and other details: she has been for 20 years. housing: other details: She lives in a trailer number of children: 1 current occupational status: retired pets and animals: Yes (2 cats) pets and animals: cat(s) Smoking Status: Former smoker Tobacco: How many years used: 72 counseling given: provider counseling alcohol intake: current alcohol intake frequency: 0-2 drinks per day details: She drinks a small juice glass of wine, when she has it, 4-5 days per week. substance use type: does not use what type of physical activity do you participate in: walking ROS ROS ED ROS Narrative Please note review of systems may be unreliable secondary to history of dementia Constitutional Constitutional ED: Denies chills or fever(s) ENT ENT ED: Denies sore throat Cardiovascular Cardiovascular: Reports palpitations; Denies chest pain Respiratory/Chest Respiratory/Chest: Reports cough and dyspnea Gastrointestinal Gastrointestinal: Denies abdominal pain, diarrhea, nausea or vomiting Genitourinary Genitourinary ED: Denies dysuria Musculoskeletal Musculoskeletal: Denies myalgias Integumentary Denies rash Neurologic Neurologic: Denies headache(s) Hematologic/Lymphatic Hematologic/Lymphatic: Reports easy bleeding and easy bruising EXAM Physical Exam Const Vital Signs: 06/02/23 03:31 06/02/23 03:39 06/02/23 04:15 Temperature 97.8 F Temperature Source Temporal Pulse Rate 104 H 91 Respiratory Rate 26 H 26 H Respiratory Effort Short of Breath Labored Respiratory Depth Deep Respiratory Pattern Tachypnea Tachypnea Blood Pressure 167/135 H Blood Pressure Mean 145 Pulse Ox 93 Oxygen Delivery Method Room Air Room Air 06/02/23 05:21 06/02/23 05:37 Temperature Temperature Source Pulse Rate 98 Respiratory Rate 19 H 18 Respiratory Effort Respiratory Depth Respiratory Pattern Blood Pressure 146/73 H Blood Pressure Mean 97 Pulse Ox 92 Oxygen Delivery Method Positive well developed and unkempt General Appearance ED: unkempt and well developed; Negative for pallor HEENT Reports dry mucous membranes HEENT Narrative: Mucous membranes are dry and tacky without secondary changes to suggest infection in the posterior pharynx No tongue or lip swelling noted no oral lesions no airway edema or compromise Mouth ED: Yes dry mucous membranes Mouth: dry mucous membranes Eyes PERRL and EOMs intact bilaterally General Eye ED: Negative for pale conjunctiva or scleral icterus Neck supple and no JVD Chest Wall palpation of chest normal Chest Narrative: No bony deformity or crepitus noted Resp Resp Narrative: Breath sounds are diminished throughout with faint expiratory wheezes noted diffusely as well as crackles in bilateral bases Cardio Rate: other Other Details: Irregularly irregular rhythm with regular rate consistent with history of chronic atrial fibrillation GI normal to inspection, nondistended, normoactive bowel sounds, non-tender, non-distended and no masses GI Narrative: No pulsatile mass or fluid wave noted Auscultation: normoactive bowel sounds Palpation: soft Back/Spine Back/Spine Narrative: Patient has dextroscoliosis of the thoracic spine Extremity Extremity Narrative: +1-2 pitting edema to the bilateral lower extremities that is equal and symmetric Neuro CN's II-XII intact bilaterally Neuro Narrative: Patient is at her baseline mental status with history of dementia and previous CVA. No new/acute findings Psych Psych Narrative: Patient has a flat affect Appearance: unkempt Skin no rashes or lesions noted General Skin Exam: Negative for jaundice or pallor MDM MDM MDM Narrative Medical decision making narrative: Patient arrived to the ER with spontaneous resolution of her symptoms. Differential diagnosis is for COPD exacerbation versus CHF exacerbation versus elevated heart rate such as A-fib with RVR or potential pneumonia. As the patient has spontaneous resolution of symptoms I do not feel there is pneumonia over this as a concern a chest x-ray to be obtained as well as basic labs. Labs revealed no clinically significant finding. Chest x-ray showed changes consistent with bilateral pleural effusions which when compared to roughly 1 month ago is relatively stable. Patient's creatinine is normal and she is on Lasix secondary to the CHF with her reported sudden onset shortness of breath while sleeping I did elect to give her an extra dose at this time. At this time she is not requiring supplemental oxygen she does not have findings for pneumonia or sepsis her heart rate is at the upper limit of normal and she is anticoagulated going against potential PE/clot. Therefore do not feel there is need for admission to the hospital and patient is otherwise safe for discharge History & Record Review Discussion w/independent historian: Patient and Family Lab Data Attestation: I reviewed the patient's lab results. Labs: Laboratory Results - last 24 hr 06/02/23 03:55 WBC 8.4 RBC 4.52 Hgb 12.6 Hct 42.0 MCV 92.9 MCH 27.9 MCHC 30.0 L RDW Std Deviation 61.6 H RDW Coeff of Jenny 17.9 H Plt Count 357 MPV 10.3 Immature Gran % (Auto) 0.400 Neut % (Auto) 64.3 Lymph % (Auto) 18.2 L Warren % (Auto) 12.7 H Eos % (Auto) 3.7 Baso % (Auto) 0.7 Absolute Neuts (auto) 5.4 Absolute Lymphs (auto) 1.54 Nucleated RBC % 0 Sodium 142 Potassium 4.3 Chloride 108 H Carbon Dioxide 30.0 Anion Gap 4 L BUN 12 Creatinine 1.06 H Est GFR (MDRD) Af Amer 63 Est GFR (MDRD) Non-Af 52 L BUN/Creatinine Ratio 11.3 Glucose 95 Calcium 8.8 Magnesium 2.3 Radiography Diagnostic Testing: Clinical Impression(s) from Imaging Studies Chest X-Ray 06/02/23 04:29 IMPRESSION: Bilateral basilar airspace disease, atelectasis and pleural effusions. Electronically Signed: Elisabet Dumont MD at 5:22 EST Reading Location ID and State: [address] [place] [address] , Service support , Chest x-ray as interpreted by the emergency medicine physician reveals bilateral pleural effusions similar nature to April 2023 without acute infiltrate or pneumothorax Discharge Plan Triage Chief Complaint: Shortness of Breath ED Provider: Miguel Marte Dx/Rx/DC Orders Clinical Impression: Congestive heart failure, Chronic atrial fibrillation, COPD (chronic obstructive pulmonary disease), Current use of supervisor intermediates anticoagulation, History of CVA (cerebrovascular accident) Instructions: COPD and Heart Disease, Coping with Heart Failure Prescriptions: New furosemide [Lasix] 40 mg tablet 40 mg PO DAILY 7 Days Qty: 7 0RF No Action ascorbic acid (vitamin C) 500 mg capsule 500 mg PO DAILY alendronate 35 mg tablet 35 mg PO FR Patient Comments: take 1 tablet by mouth every week IN THE MORNING 30 MINUTES befor... (REFER TO PRESCRIPTION NOTES). donepezil 5 mg tablet 5 mg PO QHS acetaminophen [Tylenol] 325 mg capsule 650 mg PO Q6H PRN (Reason: fever or pain) olopatadine [Pataday Once Daily Relief] 0.2 % drops 1 drp EACH EYE DAILY aspirin 81 mg tablet,chewable 1 tab PO DAILY atorvastatin 80 mg Tablet 80 mg PO QHS Qty: 30 0RF carvedilol 25 mg Tablet 25 mg PO BIDCM Qty: 60 0RF cholecalciferol (vitamin D3) 25 mcg (1,000 unit) Tablet 25 mcg PO DAILY Qty: 30 0RF furosemide 20 mg Tablet 20 mg PO DAILY Qty: 30 0RF apixaban 2.5 mg tablet 2.5 mg PO BID Qty: 60 0RF mirtazapine 15 mg Tablet 7.5 mg PO QHS Qty: 30 0RF sennosides-docusate sodium 8.6-50 mg capsule 1 tab-cap PO BID PRN (Reason: constipation) Qty: 60 0RF Daily Fiber (psyllium-aspart) 3 gram Powder In Packet 1 packet PO BID Qty: 60 0RF lisinopril 5 mg tablet 5 mg PO DAILY Qty: 30 0RF Primary Care Provider: Deidre Borrero Referrals: Deidre Borrero MD [Primary Care Provider] - Activity Restrictions/Additional Instructions: Your x-ray showed some increased fluid in the lung winkler today compared to 1 month ago. Secondary to that please begin taking the new Lasix/furosemide prescription of 40 mg once daily also to try to sleep with your head slightly elevated to prevent movement of the fluid within the lung field. She was given IV Lasix in the ER today so she does not need her Lasix/furosemide today however you may continue all the other medications as previously directed Disposition Disposition: Home, Self Care Discharge Date/Time: 06/02/23 05:37
[2023-06-02 05:21] VITALS: BP 146/73; PULSE 98; RESP 19; O2SAT 92
[2023-06-02 05:37] VITALS: RESP 18
== END 2023-06-02 05:37 | disposition home or self-care (01) ==
PROVIDERS: Emergency Provider Emergency Medicine; PCP Family Medicine; Visit Provider Emergency Medicine
DX: I13.0 Hypertensive heart and chronic kidney disease with heart failure and stage 1 through stage 4 chronic kidney disease, or unspecified chronic kidney disease (principal); F03.90 Unspecified dementia, unspecified severity, without behavioral disturbance, psychotic disturbance, mood disturbance, and anxiety; J44.9 Chronic obstructive pulmonary disease, unspecified; I50.32 Chronic diastolic (congestive) heart failure; I48.20 Chronic atrial fibrillation, unspecified; N18.31 Chronic kidney disease, stage 3a; Z79.01 Long term (current) use of anticoagulants; Z79.82 Long term (current) use of aspirin; Z79.899 Other long term (current) drug therapy; Z86.73 Personal history of transient ischemic attack (TIA), and cerebral infarction without residual deficits; Z87.891 Personal history of nicotine dependence
CPT/HCPCS: 71045; 80048; 83735; 85025; 93005; 94640; 96374; 99283; A4216; J1940